=== PATIENT | female | born 2000 | race African-American/Black ===

== ENCOUNTER 2021-02-11 15:26 | Emergency (ER) | payer OTHER, MEDICAID, SELFPAY ==
[2021-02-11 15:37] VITALS: BP 132/72; PULSE 76; RESP 19; TEMP 37; O2SAT 100
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
[2021-02-11] MEDS: LIDOCAINE, EPINEPHRINE, TETRACAINE VISCOUS SOLN 3 ML TOPICAL (15:56)
[2021-02-11] MEDS: TETANUS,DIPHTHERIA,AC PERTUSSIS ADULT (0.5 ML) BOOSTRIX IM (15:56)
== END 2021-02-11 16:20 | disposition home or self-care (01) ==
PROVIDERS: Emergency Provider Emergency Medicine; PCP Physician Assistant
DX: S61.011A Laceration without foreign body of right thumb without damage to nail, initial encounter (principal); W45.8XXA Other foreign body or object entering through skin, initial encounter; Z23 Encounter for immunization
CPT/HCPCS: 12001; 90471; 90715; 99213; G0463

== ENCOUNTER 2021-02-18 13:12 | Emergency (ER) | payer OTHER, MEDICAID, SELFPAY ==
[2021-02-18 13:21] VITALS: BP 146/73; PULSE 75; RESP 18; TEMP 36.4; O2SAT 100
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
== END 2021-02-18 14:13 | disposition home or self-care (01) ==
PROVIDERS: Emergency Provider Registered Nurse; PCP Physician Assistant
DX: S61.011D Laceration without foreign body of right thumb without damage to nail, subsequent encounter (principal); W45.8XXD Other foreign body or object entering through skin, subsequent encounter; N80.9 Endometriosis, unspecified
CPT/HCPCS: 99211; G0463

== ENCOUNTER 2021-11-12 12:55 | Emergency (ER) | payer OTHER, MEDICAID, SELFPAY ==
[2021-11-12 13:02] VITALS: BP 158/97; PULSE 78; RESP 14; TEMP 36.8; O2SAT 100
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
== END 2021-11-12 13:43 | disposition home or self-care (01) ==
PROVIDERS: Emergency Provider Nurse Practitioner Family; PCP Physician Assistant
DX: N93.9 Abnormal uterine and vaginal bleeding, unspecified (principal); N80.9 Endometriosis, unspecified; F41.9 Anxiety disorder, unspecified
CPT/HCPCS: 81025; 99212; G0463

== ENCOUNTER 2022-02-07 09:21 | Inpatient (IN) | payer OTHER, MEDICAID, SELFPAY ==
[2022-02-07] VITALS (33 sets, daily range): BP systolic 106–170; BP diastolic 59–105; PULSE 77–117; RESP 11–31; TEMP 36.4–36.6; O2SAT 97–100
--- NOTE | ~2022-02-07 | CT_ITS ---
EXAMINATION: CT abdomen pelvis w con DATE: 02/07/2022 10:46 INDICATION: Upper abdominal pain. Nausea and vomiting. TECHNIQUE: Computed tomography (CT) of the abdomen and pelvis was performed with 100 mL Omnipaque 300 intravenous contrast. Automated exposure control and iterative reconstruction technique were employe d. The dose-length product was 801.26 mGy-cm. COMPARISON: None. FINDINGS: The visualized portions of the lung bases are clear without pneumonia or pleural effusion. The heart size is normal. No pericardial effusion. There is a small sliding hiatal hernia. There is w all thickening of distal esophagus. There is an 11 mm mass of low-attenuation in peripheral right hep atic lobe. The gallbladder, spleen, pancreas, adrenal glands, and left kidney are normal. There is fo travis volume loss of right kidney. There are surgical changes of the stomach. There are changes of appe ndectomy. There are no dilated loops of bowel. There is subcutaneous shrapnel in right buttock. IMPRESSION: 1. Small sliding hiatal hernia. 2. Wall thickening of the distal esophagus, consistent with esophagitis. 3. 11 mm peripheral liver mass, most likely steatosis or old injury. Reviewed, dictated and finalized at location B.
[2022-02-07 09:39] LABS: Basophils Absolute Auto 0.1 K/mm3 (0.0-0.1); Basophils Percent Auto 0.7 % (0.2-1.2); Eosinophils Percent Auto 0.1 % (0-4.4); Hematocrit 37.8 % (37.0-47.0); Hemoglobin 12.7 g/dL (12.0-15.0); Immature Granulocyte Absolute 0.07 K/mm3 (0.00-0.031); Immature Granulocyte Percent A 0.5 % (0-0.5); Lymphocytes Absolute Auto 2.37 K/mm3 (0.9-3.2); Lymphocytes Percent Auto 17.5 % (18.3-44.2); Mean Corpuscular HGB Conc 33.6 g/dl (32-36); Mean Corpuscular Hemoglobin 32.5 pg (26-34); Mean Corpuscular Volume 96.7 fl (80-100); Mean Platelet Volume 10.2 fl (7.4-10.4); Monocytes Absolute Auto 0.9 K/mm3 (0.1-0.6); Monocytes Percent Auto 6.7 % (2.6-8.5); Neutrophils Absolute Auto 10.1 K/mm3 (1.3-6.7); Neutrophils Percent Auto 74.5 % (45.5-73.1); Platelet Count Result 345 k/mm3 (150-375); Red Blood Count 3.91 M/mm3 (4.2-5.4); Red Cell Distribution Width 12.5 % (11.5-14.5); White Blood Count 13.6 K/mm3 (4.5-10.0)
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
--- NOTE | 2022-02-07 09:42 | PC.NURSE ---
Dr. Wlal at bedside to assess pt.
[2022-02-07] MEDS: SODIUM CHLORIDE 0.9% IV 1,000 ML 999 ML IV CONT ×2 (09:50→11:37)
[2022-02-07] MEDS: FAMOTIDINE 20 MG/2 ML VIAL IV PUSH ×2 (09:51→20:48)
[2022-02-07 09:55] LABS: Alanine Aminotransferase 15 U/L (6-35); Albumin Level 4.7 g/dL (3.5-5.1); Alkaline Phosphatase 78 U/L (38-126); Anion Gap 13 mmol/L (8-16); Aspartate Amino Transferase 28 U/L (14-36); Bilirubin,Total 0.4 mg/dL (0.2-1.3); Blood Urea Nitrogen 12 mg/dL (7-17); Calcium 9.3 mg/dL (8.4-10.2); Carbon Dioxide 16 mmol/L (22-30); Chloride 108 mmol/L (98-107); Estimated CRCL calculation 123 ml/min; Estimated Glomerular Filt Rate > 60; Glucose 128 mg/dL (65-110); Lipase 53 U/L (23-300); Potassium 3.4 mmol/L (3.4-5.0); Sodium 137 mmol/L (137-145)
[2022-02-07 10:36] LABS: Add Urine Microscopic? YES; Appearance Urine Cloudy (Clear); Bilirubin Urine Negative (Negative); Blood Urine 2+ (Negative); Color Urine Yellow (Yellow); Glucose Urine UA Negative (Negative); Ketones Urine 1+ mg/dL (Negative); Leukocyte Esterase Ur Negative LEU/UL (Negative); Nitrate Urine Positive (Negative); Protein Urine 2+ mg/dL (Negative); Specific Grav Ur >= 1.030 (1.001-1.035); Urobilinogen Urine 0.2 mg/dL (<2.0)
[2022-02-07] MEDS: PROMETHAZINE HCL 25 MG/ML AMPUL 12.5 MG IV PUSH (11:36)
[2022-02-07] MEDS: MORPHINE SULFATE (*CRX) 4 MG/ML INJ IV PUSH (13:33)
--- NOTE | 2022-02-07 14:19 | PC.NURSE ---
Patient appears to be resting much more comfortably at this time. Reports pain is down to 1/10 from 9/10. No nausea or vomiting at this time. Call light in reach. Awaiting dispo.
--- NOTE | 2022-02-07 15:50 | PC.NURSE ---
Patient unable to tolerate PO challenge. Reports that she vomited after drinking the glass of water provided. Dr. Wall made aware.
[2022-02-07] MEDS: LORazepam INJ (*CRX) 2 MG/ML VIAL 0.5 MG IV PUSH (16:11)
[2022-02-07 16:39] LABS: Amphetamine Screen Urine Negative (Negative); Barbiturate Screen Urine Negative (Negative); Benzodiazepines Screen Urine Negative (Negative); Cannabinoid Screen Urine Positive (Negative); Cocaine Screen Urine Negative (Negative); Methadone Screen Urine Negative (Negative); Opiate Screen Urine Negative (Negative); Phencyclidine Screen Urine Negative (Negative)
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
[2022-02-07] MEDS: SODIUM CHLORIDE 0.9% IV 1,000 ML 125 ML IV CONT (18:12)
[2022-02-07] MEDS: MORPHINE SULFATE (*CRX) 2 MG/ML INJ IV PUSH (20:47)
[2022-02-07 23:36] LABS: Anion Gap 7 mmol/L (8-16); Blood Urea Nitrogen 9 mg/dL (7-17); Calcium 8.4 mg/dL (8.4-10.2); Carbon Dioxide 18 mmol/L (22-30); Chloride 111 mmol/L (98-107); Estimated CRCL calculation 145 ml/min; Estimated Glomerular Filt Rate > 60; Glucose 86 mg/dL (65-110); Magnesium 1.3 mg/dL (1.6-2.3); Sodium 136 mmol/L (137-145)
[2022-02-08] MEDS: MORPHINE SULFATE (*CRX) 2 MG/ML INJ IV PUSH ×5 (00:53→20:24)
[2022-02-08] MEDS: PANTOPRAZOLE SODIUM IV 40 MG VIAL IV PUSH ×3 (00:54→20:29)
[2022-02-08] MEDS: ONDANSETRON INJ 4 MG/2 ML VIAL IV PUSH ×5 (00:54→20:24)
[2022-02-08] MEDS: MAGNESIUM SULFATE 3GM/D5W100ML 3 GM/100 ML BAG IVPB (00:54)
[2022-02-08] MEDS: LACTATED RINGERS 1,000 ML 100 ML IV CONT ×2 (04:02→18:35)
[2022-02-08 05:54] VITALS: BP 125/77; PULSE 78; RESP 18; TEMP 36.2; O2SAT 100
[2022-02-08 06:03] LABS: Basophils Absolute Auto 0.1 K/mm3 (0.0-0.1); Basophils Percent Auto 0.4 % (0.2-1.2); Eosinophils Absolute Auto 0.1 K/mm3 (0-0.3); Eosinophils Percent Auto 0.7 % (0-4.4); Hematocrit 35.6 % (37.0-47.0); Hemoglobin 11.5 g/dL (12.0-15.0); Immature Granulocyte Absolute 0.06 K/mm3 (0.00-0.031); Immature Granulocyte Percent A 0.5 % (0-0.5); Lymphocytes Absolute Auto 3.38 K/mm3 (0.9-3.2); Lymphocytes Percent Auto 30.3 % (18.3-44.2); Mean Corpuscular HGB Conc 32.3 g/dl (32-36); Mean Corpuscular Hemoglobin 33.7 pg (26-34); Mean Corpuscular Volume 104.4 fl (80-100); Mean Platelet Volume 10.3 fl (7.4-10.4); Neutrophils Absolute Auto 6.6 K/mm3 (1.3-6.7); Neutrophils Percent Auto 59.1 % (45.5-73.1); Platelet Count Result 257 k/mm3 (150-375); Red Blood Count 3.41 M/mm3 (4.2-5.4); Red Cell Distribution Width 12.9 % (11.5-14.5); White Blood Count 11.2 K/mm3 (4.5-10.0)
[2022-02-08 06:19] LABS: Alanine Aminotransferase 9 U/L (6-35); Albumin Level 3.6 g/dL (3.5-5.1); Alkaline Phosphatase 54 U/L (38-126); Anion Gap 4 mmol/L (8-16); Aspartate Amino Transferase 22 U/L (14-36); Bilirubin,Total 0.7 mg/dL (0.2-1.3); Blood Urea Nitrogen 6 mg/dL (7-17); Calcium 7.4 mg/dL (8.4-10.2); Carbon Dioxide 21 mmol/L (22-30); Chloride 111 mmol/L (98-107); Estimated CRCL calculation 123 ml/min; Estimated Glomerular Filt Rate > 60; Glucose 79 mg/dL (65-110); Potassium 3.1 mmol/L (3.4-5.0); Sodium 136 mmol/L (137-145)
[2022-02-08] MEDS: VENLAFAXINE HCL XR 75 MG CAP.ER.24H 150 MG PO (08:46)
[2022-02-08] MEDS: POTASSIUM CHLORIDE 20 MEQ TABLET 40 MEQ PO (10:29)
--- NOTE | 2022-02-08 10:57 | PM.IMPN ---
Progress Note: A&P Assessment and Plan (1) Esophagitis: Code(s): K20.90 - Esophagitis, unspecified without bleeding Status: Acute Assessment and Plan: The patient presents with complaints of epigastric abdominal pain, nausea, and vomiting. Her symptoms could be related to esophagitis, gastritis and/or PUD. Lipase normal. CT Abd/Pelvis results noted. Consider also cannabinoid hyperemesis syndrome. She was educated about the benefits of abstaining from cannabis use. She does report a small amount of blood in her emesis in addition to dark stools but could be Pricila-Estrada tear. She is feeling better. Continue IV fluids. Keep NPO until seen by GI. If no plan for EGD, then will start clear liquids. Continue Protonix IV as well have antiemetics available as needed. (2) Nausea and vomiting: Code(s): R11.2 - Nausea with vomiting, unspecified Status: Acute Assessment and Plan: As above. (3) Cannabis abuse, daily use: Code(s): F12.10 - Cannabis abuse, uncomplicated Status: Acute Assessment and Plan: As above. Patient was educated about benefits abstain from cannabis use. (4) Abnormal urinalysis: Code(s): R82.90 - Unspecified abnormal findings in urine Status: Acute Assessment and Plan: UA noted. Possible UTI. Rocephin started. Will follow up on urine culture. (5) Tobacco abuse: Code(s): Z72.0 - Tobacco use Status: Acute Assessment and Plan: Patient was educated about the benefits of smoking cessation. (6) Anxiety and depression: Code(s): F41.9 - Anxiety disorder, unspecified; F32.9 - Major depressive disorder, single episode, unspecified Status: Acute Assessment and Plan: Patient with anxiety, depression and PTSD. Mood is stable. Will resume her Seroquel and Effexor. Plan DVT Prophylaxis: SCD Code status: Full Subjective Date/time seen: 02/08/22 10:57 Interval history: 21yo female with PTSD, anxiety and depression here for nausea/vomiting and abdominal pain. Assuming care. Chart reviewed. Patient states that she had nausea, vomiting abdominal pain that resulted in dark red emesis. No further vomiting. She feels better overall but still feels nauseous. She has mostly is upper abdominal pain that that is rated 8/10. She describes as a pressure. Worse with movements. Denies flatus or bowel movements. She states her symptoms began in August and have been intermittent since that time. Exam Narrative: AF 97.2 125/77 78 18 100% ra Gen - NARD lying flat in bed Chest - CTA bilaterally, nml RR CV - RRR S1/S2 Abd - mild upper abdominal pain to palpation but no guarding, hypoactive BS Ext - No pedal edema Psych - Nml mood and affect Skin - Warm and dry Objective Data Vital Signs Vital Signs: Vital Signs - 24 hr 02/07/22 12:08 02/07/22 12:17 02/07/22 12:19 Temperature 97.5 F L Pulse Rate 107 H 110 H Respiratory Rate Blood Pressure 148/93 H 170/105 H Pulse Oximetry Oxygen Delivery 02/07/22 12:14 02/07/22 12:15 02/07/22 12:19 Temperature Pulse Rate 82 82 117 H Respiratory Rate 16 25 H 19 Blood Pressure 148/93 H Pulse Oximetry 100 Oxygen Delivery 02/07/22 12:24 02/07/22 13:53 02/07/22 14:07 Temperature Pulse Rate 90 80 87 Respiratory Rate 19 22 H 21 H Blood Pressure Pulse Oximetry 100 99 99 Oxygen Delivery 02/07/22 14:15 02/07/22 14:17 02/07/22 14:30 Temperature Pulse Rate 83 94 81 Respiratory Rate 22 H 27 H 20 Blood Pressure 113/59 L Pulse Oximetry 100 99 100 Oxygen Delivery 02/07/22 14:31 02/07/22 14:32 02/07/22 14:45 Temperature Pulse Rate 78 86 91 Respiratory Rate 23 H 23 H 31 H Blood Pressure 111/96 H Pulse Oximetry 100 100 100 Oxygen Delivery 02/07/22 15:00 02/07/22 15:01 02/07/22 15:02 Temperature Pulse Rate 87 83 85 Respiratory Rate 31 H 22 H 23 H Blood Pressure
[2022-02-08 14:00] VITALS: BP 148/91; PULSE 67; RESP 18; TEMP 36.2; O2SAT 100
[2022-02-08] MEDS: QUEtiapine FUMARATE 25 MG TABLET PO (21:21)
[2022-02-08 21:38] VITALS: BP 145/88; PULSE 79; RESP 18; TEMP 36.4; O2SAT 100
[2022-02-09] MEDS: ONDANSETRON INJ 4 MG/2 ML VIAL IV PUSH ×3 (00:43→10:12)
[2022-02-09] MEDS: MORPHINE SULFATE (*CRX) 2 MG/ML INJ IV PUSH ×3 (00:43→10:12)
[2022-02-09] MEDS: LACTATED RINGERS 1,000 ML 100 ML IV CONT (05:01)
[2022-02-09 06:00] VITALS: BP 128/90; PULSE 73; RESP 18; TEMP 36.4; O2SAT 100
[2022-02-09 06:15] LABS: Basophils Absolute Auto 0.1 K/mm3 (0.0-0.1); Basophils Percent Auto 0.9 % (0.2-1.2); Eosinophils Absolute Auto 0.1 K/mm3 (0-0.3); Eosinophils Percent Auto 1.3 % (0-4.4); Hematocrit 36.9 % (37.0-47.0); Immature Granulocyte Absolute 0.02 K/mm3 (0.00-0.031); Immature Granulocyte Percent A 0.3 % (0-0.5); Immature Platelet Fraction Pct 5.1 % (0.9-11.2); Lymphocytes Absolute Auto 3.21 K/mm3 (0.9-3.2); Lymphocytes Percent Auto 40.4 % (18.3-44.2); Mean Corpuscular HGB Conc 29.8 g/dl (32-36); Mean Corpuscular Hemoglobin 32.5 pg (26-34); Mean Corpuscular Volume 109.2 fl (80-100); Mean Platelet Volume 10.5 fl (7.4-10.4); Monocytes Absolute Auto 0.7 K/mm3 (0.1-0.6); Monocytes Percent Auto 8.2 % (2.6-8.5); Neutrophils Absolute Auto 3.9 K/mm3 (1.3-6.7); Neutrophils Percent Auto 48.9 % (45.5-73.1); Platelet Count Result 242 k/mm3 (150-375); Red Blood Count 3.38 M/mm3 (4.2-5.4); Red Cell Distribution Width 12.3 % (11.5-14.5)
[2022-02-09 06:31] LABS: Anion Gap 4 mmol/L (8-16); Blood Urea Nitrogen 4 mg/dL (7-17); Calcium 7.7 mg/dL (8.4-10.2); Carbon Dioxide 24 mmol/L (22-30); Chloride 109 mmol/L (98-107); Estimated CRCL calculation 107 ml/min; Estimated Glomerular Filt Rate > 60; Glucose 87 mg/dL (65-110); Magnesium 2.1 mg/dL (1.6-2.3); Potassium 3.4 mmol/L (3.4-5.0); Sodium 137 mmol/L (137-145)
[2022-02-09] MEDS: PANTOPRAZOLE SODIUM IV 40 MG VIAL IV PUSH (08:14)
[2022-02-09] MEDS: VENLAFAXINE HCL XR 75 MG CAP.ER.24H 150 MG PO (08:14)
--- NOTE | 2022-02-09 08:29 | PC.NURSE ---
All 0800 and 0900 meds given by Hanh Gutierrez RN.
[2022-02-09 14:00] VITALS: BP 172/99; PULSE 75; RESP 16; TEMP 36.6; O2SAT 99
[2022-02-09] MEDS: traMADol HCL (*CRX) 25 MG TABLET PO (15:29)
--- NOTE | 2022-02-09 17:07 | PM.DS ---
DS: Admitting Diagnosis Discharge Date 02/09/22 Admitting Diagnosis Nausea, vomiting, abdominal pain DS: Discharge Diagnosis Discharge Diagnosis (1) Esophagitis: Code(s): K20.90 - Esophagitis, unspecified without bleeding Status: Acute (2) Nausea and vomiting: Code(s): R11.2 - Nausea with vomiting, unspecified Status: Acute (3) Cannabis abuse, daily use: Code(s): F12.10 - Cannabis abuse, uncomplicated Status: Acute (4) Abnormal urinalysis: Code(s): R82.90 - Unspecified abnormal findings in urine Status: Acute (5) Tobacco abuse: Code(s): Z72.0 - Tobacco use Status: Acute (6) Anxiety and depression: Code(s): F41.9 - Anxiety disorder, unspecified; F32.9 - Major depressive disorder, single episode, unspecified Status: Acute DS: Summary Hospital Course Reason for hospitalization: 21yo female with PTSD, anxiety and depression here for nausea/vomiting and abdominal pain. Please see H&P for details Hospital Course: The patient presented with complaints of epigastric abdominal pain, nausea, and vomiting. CT Abd/Pelvis results showed a small sliding hiatal hernia, wall thickening of the distal esophagus consistent with esophagitis and a 11 mm peripheral liver mass, most likely steatosis or old injury. Her symptoms could be related to esophagitis, gastritis and/or PUD. Lipase was normal. Consider also cannabinoid hyperemesis syndrome. She was educated about the benefits of abstaining from cannabis use. She does report a small amount of blood in her emesis in addition to dark stools but could be Pricila-Estrada tear. Hemoglobin remained stable. Macrocytosis noted probably related to her Seroquel ; B12/folate levels pending. She was made NPO and started on IV fluids. GI consulted but unable to see her here. She began to feel better so diet started and advanced as she tolerated. UA noted and UTI considered but UCx was negative. She was started on Rocephin but stopped when urine culture returned negative. Patient was educated about the benefits of smoking cessation. Patient with anxiety, depression and PTSD. Mood remained stable and we were able to resume her Seroquel and Effexor. She was able to eat and toelrate it. She felt ready for discharge. She overall did well and was able to be discharged home on 02/09/22. Status at Discharge Cognitive/behavioral status at discharge: Stable Time Spent with Patient Time attestation: Total time spent providing and/or coordinating discharge services: 34 minutes Time spent: Greater than 30 minutes Exam Narrative: AF 97.8 172/99 75 16 99% ra Gen - NARD Chest - CTA bilaterally, nml RR CV - RRR S1/S2 Abd - soft, obese, NT, +BS Ext - No pedal edema Psych - Nml mood and affect Skin - Warm and dry DS: Data Data Completed and Pending Labs on day of discharge: Labs from last 24 hours 02/09/22 02/09/22 05:47 05:47 WBC 8.0 RBC 3.38 L Hgb 11.0 L Hct 36.9 L MCV 109.2 H MCH 32.5 MCHC 29.8 L RDW 12.3 Plt Count 242 MPV 10.5 H Immature Gran % (Auto) 0.3 Neut % (Auto) 48.9 Lymph % (Auto) 40.4 [place] % (Auto) 8.2 Eos % (Auto) 1.3 Baso % (Auto) 0.9 Lymph # (Auto) 3.21 H [place] # (Auto) 0.7 H Eos # (Auto) 0.1 Baso # (Auto) 0.1 Abs Immat Gran (auto) 0.02 Absolute Neuts (auto) 3.9 Absolute Nucleated RBC 0.0 Nucleated RBC % 0.0 % Immature Plt Fraction 5.1 Sodium 137 Potassium 3.4 Chloride 109 H Carbon Dioxide 24 Anion Gap 4 L BUN 4 L Creatinine 0.70 Estim Creat Clear Calc 107 Estimated GFR > 60 Glucose 87 Calcium 7.7 L Magnesium 2.1 Discharge Plan Discharge Attending physician on discharge: Roland Mortensen Discharging Clinician: Roland Mortensen Anticipated Discharge Date/Time: 02/09/22 17:21 Patient Disposition: Home, Self-Care Activity: as tolerated Diet: regular and bland Discharge Instruc
[2022-02-09 18:41] LABS: Folic Acid 8.5 ng/mL (2.76->20)
--- NOTE | 2022-02-10 09:39 | PC.NURSE ---
B12 and Folate are both WNL. Dr. Mortensen aware.
== END 2022-02-09 18:10 | disposition home or self-care (01) | DRG 391 ==
LOC: ANHED 15:51 → ANH3MEDSUR 16:24
PROVIDERS: Physician Assistant; Admitting Provider Chiropractor; Emergency Provider Emergency Medicine; PCP Physician Assistant; Visit Provider Internal Medicine
DX: K20.90 Esophagitis, unspecified without bleeding (principal); K22.6 Gastro-esophageal laceration-hemorrhage syndrome; K27.9 Peptic ulcer, site unspecified, unspecified as acute or chronic, without hemorrhage or perforation; K29.70 Gastritis, unspecified, without bleeding; D75.89 Other specified diseases of blood and blood-forming organs; T43.595A Adverse effect of other antipsychotics and neuroleptics, initial encounter; R11.2 Nausea with vomiting, unspecified; F12.10 Cannabis abuse, uncomplicated; F43.10 Post-traumatic stress disorder, unspecified; R82.90 Unspecified abnormal findings in urine; F41.8 Other specified anxiety disorders; F17.210 Nicotine dependence, cigarettes, uncomplicated; Z90.49 Acquired absence of other specified parts of digestive tract
CPT/HCPCS: 36415; 74177; 80048; 80053; 80307; 81001; 81025; 82607; 82746; 83690; 83735; 85025; 85055; 87086; 96361; 96365; 96367; 96374; 96375; 96376; 99285; A9270; C9113; G0378; J0131; J0696; J2060; J2270; J2405; J2550; J3475; J7030; J7120; Q9967

== ENCOUNTER 2022-11-01 10:52 | Emergency (ER) | payer OTHER, MEDICAID, SELFPAY ==
--- NOTE | ~2022-11-01 | CT_ITS ---
EXAMINATION: CT abdomen pelvis w con DATE: 11/01/2022 12:18 INDICATION: Abdominal pain, nausea and vomiting TECHNIQUE: Computed tomography (CT) of the abdomen and pelvis was performed with 100 mL Omnipaque-350 intravenous contrast. Automated exposure control and iterative reconstruction technique were employe d. The dose-length product was 734.07 mGy-cm. COMPARISON: 02/07/2022 FINDINGS: Lung bases are clear. Heart size is normal. No pericardial or pleural effusion. No interval change in and likely benign subtle poorly defined approximately 10 mm subcapsular hypodense lesion in segment 5 of the liver. Gallbladder, spleen, pancreas, bilateral adrenal glands and left kidney are normal. P ostoperative change of prior partial nephrectomy at the lower pole of the right kidney. There is diff use wall thickening of the colon most prominent in the ascending and transverse colon consistent with colitis. No bowel obstruction. Appendix is not visualized and there are couple surgical clips at the tip the cecum consistent with prior appendicitis. Bladder, anteverted uterus and bilateral adnexa ar e unremarkable. Minimal amount of likely physiologic free fluid in the cul-de-sac. No abscess or free intraperitoneal gas. No pathologically enlarged abdominal or pelvic lymphadenopathy. Metallic foreig n body in the subcutaneous tissues fat lateral to the right greater trochanter. Mild degenerative ske letal changes in the spine and pelvis. IMPRESSION: 1. Wall thickening in the ascending and transverse colon consistent with colitis which could be infec tious, inflammatory or ischemic in etiology. Reviewed, dictated and finalized at location A. PROCESSING CENTER MANAGER IMPRESSION: 1. Wall thickening in the ascending and transverse colon consistent with coliti s which could be infectious, inflammatory or ischemic in etiology.
[2022-11-01 10:50] VITALS: BP 178/83; PULSE 98; RESP 20; TEMP 36.9; O2SAT 100
[2022-11-01 11:01] VITALS: BP 153/80; PULSE 100; RESP 18; O2SAT 100
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
[2022-11-01] MEDS: ONDANSETRON INJ 4 MG/2 ML VIAL IV PUSH (11:29)
[2022-11-01] MEDS: SODIUM CHLORIDE 0.9% IV 2,000 ML 999 ML IV CONT (11:29)
[2022-11-01 11:33] LABS: Basophils Absolute Auto 0.1 K/mm3 (0.0-0.1); Basophils Percent Auto 0.5 % (0.2-1.2); Eosinophils Percent Auto 0.2 % (0-4.4); Hematocrit 37.5 % (37.0-47.0); Hemoglobin 12.5 g/dL (12.0-15.0); Immature Granulocyte Absolute 0.03 K/mm3 (0.00-0.031); Immature Granulocyte Percent A 0.2 % (0-0.5); Lymphocytes Absolute Auto 2.38 K/mm3 (0.9-3.2); Mean Corpuscular HGB Conc 33.3 g/dl (32-36); Mean Corpuscular Hemoglobin 32.5 pg (26-34); Mean Corpuscular Volume 97.4 fl (80-100); Monocytes Absolute Auto 0.9 K/mm3 (0.1-0.6); Monocytes Percent Auto 6.4 % (2.6-8.5); Neutrophils Absolute Auto 10.6 K/mm3 (1.3-6.7); Neutrophils Percent Auto 75.7 % (45.5-73.1); Platelet Count Result 339 k/mm3 (150-375); Red Blood Count 3.85 M/mm3 (4.2-5.4); Red Cell Distribution Width 12.9 % (11.5-14.5)
[2022-11-01 11:38] LABS: Appearance Urine Cloudy (Clear); Bacteria Urine Rare /hpf; Bilirubin Urine Negative (Negative); Blood Urine Negative (Negative); Color Urine Dark Yellow (Yellow); Glucose Urine UA Negative (Negative); Ketones Urine 2+ mg/dL (Negative); Leukocyte Esterase Ur Trace LEU/UL (Negative); Nitrate Urine Negative (Negative); Protein Urine 1+ mg/dL (Negative); RBC Urine 0-2 /hpf (0-2); Squamous Epithelial Cell Urine Moderate /hpf (Few); pH Urine 8.5 (5.0-9.0)
[2022-11-01 11:43] LABS: Alanine Aminotransferase 15 U/L (6-35); Albumin Level 4.8 g/dL (3.5-5.1); Alkaline Phosphatase 85 U/L (38-126); Anion Gap 7 mmol/L (8-16); Aspartate Amino Transferase 26 U/L (14-36); Bilirubin,Total 0.6 mg/dL (0.2-1.3); Blood Urea Nitrogen 12 mg/dL (7-17); Calcium 9.2 mg/dL (8.4-10.2); Carbon Dioxide 26 mmol/L (22-30); Chloride 106 mmol/L (98-107); Estimated CRCL calculation 125 ml/min; Estimated Glomerular Filt Rate > 60; Glucose 104 mg/dL (65-110); Lipase 57 U/L (23-300); Potassium 3.8 mmol/L (3.4-5.0); Sodium 139 mmol/L (137-145)
[2022-11-01] MEDS: HALOPERIDOL LACTATE 5 MG/ML VIAL 2.5 MG IV PUSH (11:57)
[2022-11-01 11:58] VITALS: BP 128/79; PULSE 103; RESP 20; O2SAT 100
[2022-11-01 11:58] LABS: Add Urine Microscopic? YES
[2022-11-01 12:18] VITALS: BP 91/81; PULSE 110; RESP 16
[2022-11-01 12:33] VITALS: BP 118/62; PULSE 101; RESP 18; O2SAT 100
[2022-11-01] MEDS: diphenhydrAMINE HCl INJ 50 MG/ML VIAL 25 MG IV PUSH (12:53)
[2022-11-01] MEDS: LORazepam (*CRX) 0.5 MG TABLET PO (12:54)
--- NOTE | 2022-11-01 13:21 | ECG_ITS ---
Measurements Intervals [place] Rate: 99 P: 57 KS: 140 QRS: 43 QRSD: 95 T: 37 QT: 328 QTc: 423 Interpretive Statements SINUS RHYTHM BORDERLINE T WAVE ABNORMALITY- ANTERIOR LEADS BORDERLINE ECG NO PREVIOUS ECG AVAILABLE FOR COMPARISON Electronically Signed On 11-01-2022 17:08:48 DEALER ACCOUNTS INVESTIGATOR by Ramin Charles D.O.
[2022-11-01 13:42] VITALS: BP 125/74; PULSE 98; RESP 20; O2SAT 100
== END 2022-11-01 13:46 | disposition home or self-care (01) ==
PROVIDERS: Emergency Provider Nurse Practitioner Family; PCP Physician Assistant
DX: K52.9 Noninfective gastroenteritis and colitis, unspecified (principal); R11.2 Nausea with vomiting, unspecified; F41.9 Anxiety disorder, unspecified; F17.210 Nicotine dependence, cigarettes, uncomplicated; F32.A Depression, unspecified
CPT/HCPCS: 36415; 74177; 80053; 81001; 81025; 83690; 85025; 87086; 87088; 93005; 96361; 96374; 96375; 99284; A9270; J1200; J1630; J2405; J7030; Q9967

== ENCOUNTER 2023-07-21 08:08 | Outpatient (CLI) | payer OTHER, MEDICAID, SELFPAY ==
--- NOTE | ~2023-07-21 | NM_ITS ---
EXAM: NM gastric emptying study DATE: 07/21/2023 12:48 INDICATION: Nausea with vomiting, unspecified. TECHNIQUE: A gastric emptying study was performed using the methodology of Mila FENTON, et al. J Nucl Med 2007; 48:568-572. The patient was given a meal consisting of 2 scrambled eggs labeled with 0.944 mCi Tc-99m sulfur colloid, 2 slices of toast, two packages of jam, and approximately 120 mL of water . Simultaneous anterior and posterior 1-min images of the abdomen were obtained with the patient supi ne at multiple time points over a total period of 4 hours. The geometric mean of anterior and posteri or views was determined, and the percentage retention was calculated for each time point. COMPARISON: CT abdomen and pelvis 11/01/2022 FINDINGS: Gastric retention of the radiotracer-labeled meal was 57%, 27%, and 3% at the 1-hour, 2-ho ur, and 4-hour time points, respectively. With this technique, apparent rapid gastric emptying is sug gested by <30% gastric retention at 1 hour. Delayed gastric emptying is defined by gastric retention of >90% at 1 hour, >60% retention at 2 hours, or >10% retention at 4 hours. IMPRESSION: 1. Normal gastric emptying. Reviewed, dictated and finalized at location A. UITMENT ASSISTANT IMPRESSION: 1. Normal gastric emptying.
== END 2023-07-21 08:09 | disposition home or self-care (01) ==
PROVIDERS: PCP Family Medicine; Visit Provider Nurse Practitioner Family
DX: R11.2 Nausea with vomiting, unspecified (principal)
CPT/HCPCS: 78264; A9541

== ENCOUNTER 2024-01-27 12:56 | Outpatient (CLI) | payer OTHER, SELFPAY ==
--- NOTE | ~2024-01-27 | US_ITS ---
EXAMINATION: US OB <=14 wk fetus w TV DATE: 01/27/2024 13:21 INDICATION: Uncertain dates. . TECHNIQUE: Real-time transabdominal and transvaginal pelvic ultrasound was performed. COMPARISON: None. FINDINGS: TRANSABDOMINAL ULTRASOUND: The uterus measures 8.8 x 6.0 x 5.4 cm. TRANSVAGINAL ULTRASOUND: There is an intrauterine gestational sac. A yolk sac is identified. The fet al crown rump length measures 9 mm, which correlates with an estimated gestational age of 7 weeks and 0 day(s) (+/-) 4 day(s). heart motion is identified measuring 128 beats per minute (bpm) by M- mode Doppler. There is a small subchorionic hematoma. The right ovary measures 1.7 x 2.5 x 2.1 cm. Th e left ovary measures 3.2 x 1.5 x 1.5 cm. There is no free fluid in the pelvis. IMPRESSION: 1. Single living intrauterine gestation with estimated date of delivery of 09/14/2024. 2. Small subchorionic hematoma. Reviewed, dictated and finalized at location A. IMPRESSION: 1. Single living intrauterine gestation with estimated date of delivery of 08/25. 2. Small subchorionic hematoma.
== END 2024-01-27 12:57 ==
LOC: GOSHIMG 12:57
PROVIDERS: PCP Family Medicine; Visit Provider Obstetrics & Gynecology Gynecology
DX: O46.90 Antepartum hemorrhage, unspecified, unspecified trimester (principal); Z36.87 Encounter for antenatal screening for uncertain dates; Z3A.00 Weeks of gestation of pregnancy not specified
CPT/HCPCS: 76801; 76817

== ENCOUNTER 2024-01-31 19:45 | Observation (INO) | payer OTHER, MEDICAID, SELFPAY ==
[2024-01-31 19:39] VITALS: BP 81/71; PULSE 80; RESP 18; TEMP 36.8; O2SAT 100
[2024-01-31] MEDS: SODIUM CHLORIDE 0.9% IV 1,000 ML 999 ML IV CONT ×3 (20:31→23:04)
[2024-01-31 20:34] LABS: Basophils Absolute Auto 0.1 K/mm3 (0.0-0.1); Basophils Percent Auto 0.4 % (0.2-1.2); Eosinophils Percent Auto 0.2 % (0-4.4); Hematocrit 37.2 % (37.0-47.0); Hemoglobin 13.1 g/dL (12.0-15.0); Immature Granulocyte Absolute 0.06 K/mm3 (0.00-0.031); Immature Granulocyte Percent A 0.4 % (0-0.5); Lymphocytes Absolute Auto 1.65 K/mm3 (0.9-3.2); Lymphocytes Percent Auto 10.7 % (18.3-44.2); Mean Corpuscular HGB Conc 35.2 g/dl (32-36); Mean Corpuscular Hemoglobin 31.9 pg (26-34); Mean Corpuscular Volume 90.5 fl (80-100); Mean Platelet Volume 10.2 fl (7.4-10.4); Monocytes Absolute Auto 1.1 K/mm3 (0.1-0.6); Monocytes Percent Auto 7.4 % (2.6-8.5); Neutrophils Absolute Auto 12.4 K/mm3 (1.3-6.7); Neutrophils Percent Auto 80.9 % (45.5-73.1); Platelet Count Result 345 k/mm3 (150-375); Red Blood Count 4.11 M/mm3 (4.2-5.4); Red Cell Distribution Width 11.5 % (11.5-14.5); White Blood Count 15.4 K/mm3 (4.5-10.0)
[2024-01-31 20:38] LABS: Appearance Urine Cloudy (Clear); Bacteria Urine 2+ /hpf; Bilirubin Urine Negative (Negative); Blood Urine Negative (Negative); Color Urine Yellow (Yellow); Glucose Urine UA Negative (Negative); Ketones Urine 4+ mg/dL (Negative); Leukocyte Esterase Ur Negative LEU/UL (Negative); Nitrate Urine Negative (Negative); Non Pathogenic Casts 0-2; Protein Urine 1+ mg/dL (Negative); RBC Urine 0-2 /hpf (0-2); Squamous Epithelial Cell Urine Many /hpf (Few); pH Urine 5.5 (5.0-9.0)
[2024-01-31 20:44] LABS: Alanine Aminotransferase 9 U/L (6-35); Albumin Level 5.3 g/dL (3.5-5.1); Alkaline Phosphatase 61 U/L (38-126); Anion Gap 15 mmol/L (4-12); Aspartate Amino Transferase 20 U/L (14-36); Bilirubin,Total 0.7 mg/dL (0.2-1.3); Blood Urea Nitrogen 8 mg/dL (7-17); Calcium 10.1 mg/dL (8.4-10.2); Carbon Dioxide 17 mmol/L (22-30); Chloride 100 mmol/L (98-107); Estimated CRCL calculation 109 ml/min; Estimated Glomerular Filt Rate > 60; Glucose 83 mg/dL (65-110); Lipase 62 U/L (23-300); Potassium 3.6 mmol/L (3.4-5.0); Sodium 132 mmol/L (137-145)
[2024-01-31 20:48] LABS: Specific Grav Ur 1.031 (1.001-1.035)
[2024-01-31 20:49] LABS: Add Urine Microscopic? YES
[2024-01-31] MEDS: diphenhydrAMINE HCl INJ 50 MG/ML VIAL 25 MG IV PUSH (21:14)
[2024-01-31 21:15] VITALS: BP 111/64; PULSE 79; O2SAT 100
[2024-01-31] MEDS: FAMOTIDINE 20 MG/2 ML VIAL IV PUSH (21:15)
[2024-01-31] MEDS: METOCLOPRAMIDE HCL INJ 10 MG/2 ML VIAL IV PUSH (21:22)
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
[2024-01-31 21:35] LABS: Magnesium 1.9 mg/dL (1.6-2.3)
[2024-01-31] MEDS: ONDANSETRON INJ 4 MG/2 ML VIAL IV PUSH (23:04)
[2024-02-01] VITALS (35 sets, daily range): BP systolic 97–118; BP diastolic 44–65; PULSE 64–86; RESP 15–16; TEMP 36.1–36.6; O2SAT 89–100; BMI 25.6
[2024-02-01 00:17] LABS: Anion Gap 8 mmol/L (4-12); Blood Urea Nitrogen 6 mg/dL (7-17); Calcium 7.7 mg/dL (8.4-10.2); Carbon Dioxide 15 mmol/L (22-30); Chloride 110 mmol/L (98-107); Estimated CRCL calculation 128 ml/min; Estimated Glomerular Filt Rate > 60; Glucose 68 mg/dL (65-110); Potassium 3.7 mmol/L (3.4-5.0); Sodium 133 mmol/L (137-145)
[2024-02-01] MEDS: DEXTROSE 5%/0.9% SOD CHL 1,000 ML 100 ML IV CONT (00:50)
--- NOTE | 2024-02-01 01:30 | PC.NURSE ---
Pt arrives to unit from the Emergency Department with nausea and vomiting.
--- NOTE | 2024-02-01 02:18 | PC.NURSE ---
This Rn gave pt dextrose at 0050 prior to being admitted on OB floor. PT was taken up by a tech in wheelchair around 0130. This RN gave report to JALEN garcia at 0105.
--- NOTE | 2024-02-01 02:43 | PC.NURSE ---
Called Vasyl Caraballo CNM, update on pt, nausea, vomiting, and vital signs. Orders received to administer phenergan suppository 25 mg, reglan 5 mg, and vital signs every four hours, assess nausea and vomiting after ninety minutes, and if not feeling better administer D5 LR at 175 ml/hr, zofran 4 mg every eight hours, and phenergan every eight hours. When discharging pt, send prescriptions zofran every eight hours as needed, phenergan supposity 25 mg every eight hours , vitamin B6 50 mg daily, and unisom 12.5 mg at bedtime.
[2024-02-01] MEDS: DEXTROSE 5%/LACTATED RINGERS 1,000 ML 500 ML IV CONT (03:02)
--- NOTE | 2024-02-01 03:19 | PC.NURSE ---
Called Vasyl Caraballo CNM, verified medications, orders received to administer phenergan suppository 25 mg and cancel reglan.
--- NOTE | 2024-02-01 03:47 | OBADM ---
This patient, Josephine Alejandre, admitted to the OB room OB Post 116 for observation. Patient/family oriented to hospital policies and general routines including ID bracelet, bed and alarms, visiting hours, pain management, procedures, bathroom and other care routines, personal items, smoking policy, room service/diet, and visiting hours. Patient/Family are encouraged to report perceived risks to care and to ask questions if they do not understand what they are told or what they should do.
[2024-02-01] MEDS: DEXTROSE 5%/LACTATED RINGERS 1,000 ML 175 ML IV CONT ×4 (05:47→23:32)
[2024-02-01] MEDS: ONDANSETRON HCL ODT 4 MG TABLET PO ×3 (08:10→20:03)
[2024-02-01] MEDS: polyethylene glycoL 3350 17 GM POWD.PACK PO (08:10)
[2024-02-01] MEDS: FAMOTIDINE 20 MG/2 ML VIAL IV PUSH ×2 (09:11→21:09)
[2024-02-01 09:33] LABS: Appearance Urine Cloudy (Clear); Bacteria Urine Rare /hpf; Bilirubin Urine Negative (Negative); Blood Urine Negative (Negative); Color Urine Yellow (Yellow); Glucose Urine UA Negative (Negative); Ketones Urine 3+ mg/dL (Negative); Leukocyte Esterase Ur Negative LEU/UL (Negative); Nitrate Urine Negative (Negative); Non Pathogenic Casts 0-2; Protein Urine Negative (Negative); RBC Urine 0-2 /hpf (0-2); Specific Grav Ur 1.012 (1.001-1.035); Squamous Epithelial Cell Urine Moderate /hpf (Few); pH Urine 5.5 (5.0-9.0)
[2024-02-01 09:36] LABS: Add Urine Microscopic? YES
[2024-02-01] MEDS: PROMETHAZINE HCL 25 MG SUPP.RECT RECTAL ×2 (12:07→17:30)
--- NOTE | 2024-02-01 12:44 | PM.OBPNVD ---
OB - PN: Subj Subjective Date/time seen: 02/01/24 0725 Interval history: Pt rousable to voice. Reports continued nausea. Unable to attempt PO. IV fluids infusing. Denies improvement. Discussed plan of care. Plan to schedule antiemetics. Gradually transition to home dosing/ po routes. Denies vaginal bleeding. OB - PN: Obj Data Labs 01/31/24 20:27 01/31/24 23:48 Labs: Laboratory Results - last 24 hr 01/31/24 01/31/24 02/01/24 20:27 23:48 09:21 WBC 15.4 H RBC 4.11 L Hgb 13.1 Hct 37.2 MCV 90.5 MCH 31.9 MCHC 35.2 RDW 11.5 Plt Count 345 MPV 10.2 Immature Gran % (Auto) 0.4 Neut % (Auto) 80.9 H Lymph % (Auto) 10.7 L [place] % (Auto) 7.4 Eos % (Auto) 0.2 Baso % (Auto) 0.4 Lymph # (Auto) 1.65 [place] # (Auto) 1.1 H Eos # (Auto) 0.0 Baso # (Auto) 0.1 Abs Immat Gran (auto) 0.06 H Absolute Neuts (auto) 12.4 H Absolute Nucleated RBC 0.000 Nucleated RBC % 0.0 Sodium 132 L 133 L Potassium 3.6 3.7 Chloride 100 110 H Carbon Dioxide 17 L 15 L Anion Gap 15 H 8 BUN 8 6 L Creatinine 0.60 L 0.50 L Estim Creat Clear Calc 109 128 Estimated GFR > 60 > 60 Glucose 83 68 Calcium 10.1 7.7 L Magnesium 1.9 Total Bilirubin 0.7 AST 20 ALT 9 Alkaline Phosphatase 61 Total Protein 9.0 H Albumin 5.3 H Lipase 62 Beta HCG, Quant 79361.00 Urine Color Yellow Yellow Urine Appearance Cloudy H Cloudy H Urine pH 5.5 5.5 Ur Specific [place] 1.031 1.012 Urine Protein 1+ H Negative Urine Glucose (UA) Negative Negative Urine Ketones 4+ H 3+ H Ur Blood (Man) Negative Negative Urine Nitrate Negative Negative Urine Bilirubin Negative Negative Urine Urobilinogen 1.0 1.0 Ur Leukocyte Esterase Negative Leukocyte Esterase Rfl Negative Urine RBC 0-2 0-2 Urine WBC 6-10 H 6-10 H Ur Squamous Epith Cells Many H Moderate Urine Bacteria 2+ H Rare Urine Casts 0-2 0-2 OB - PN A/P Assessment and Plan (1) Hyperemesis gravidarum: Code(s): O21.0 - Mild hyperemesis gravidarum Status: Acute Time Spent With Patient Time: Total time spent is greater than 50% in coordination of care (as documented) at patient's floor/unit and/or counseling patient: Review of Systems Review of Systems: All systems reviewed & are unremarkable except as noted in HPI and below Exam Const: General: cooperative, comfortable, no acute distress and awake Nutritional Appearance: average body habitus HENMT: Head: normal to inspection Neck: Neck: normal visual inspection Chest: Chest palpation & inspection: normal inspection of the chest Resp: Effort & Inspection: normal respiratory effort and able to speak in complete sentences Auscultation: clear to auscultation bilaterally Cardio: Rate: regular rate GI: Inspection: normal to inspection Back/Spine/Pelvis: Back: no CVA tenderness Skin: General skin exam: normal color and no rashes or lesions noted Neuro: General: patient oriented x3 and moves all extremities Psych: Appearance: grossly normal Mental Status: mental status grossly normal Speech and movement: Normal speech and movement present
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
--- NOTE | 2024-02-01 15:33 | PC.NURSE ---
[id number]: Patient called out to say she ate mashed potatoes and orange juice and threw it up afterwards and is now complaining of stomach pain. RN paged CNM.
--- NOTE | 2024-02-01 16:12 | PC.NURSE ---
1612: COLLETTE responded to page. RN informed CNM of patient's complaints of stomach pain and vomiting after eating. CNM stated she is going to call Dr. Dee to discuss any other options for patient to help with N/V.
[2024-02-01] MEDS: ACETAMINOPHEN 500 MG TABLET 1000 MG PO (16:28)
--- NOTE | 2024-02-01 18:10 | PC.NURSE ---
1800: CNM on unit. CNM ordered to continue with scheduled medications. No new orders. Report given JALEN Humphries
[2024-02-01] MEDS: PYRIDOXINE HCL 50 MG TABLET PO (21:09)
[2024-02-01] MEDS: diphenhydrAMINE HCL ELIXIR 12.5 MG/5 ML UDC BY MOUTH (21:09)
[2024-02-02] VITALS (13 sets, daily range): BP systolic 108–124; BP diastolic 52–70; PULSE 61–86; RESP 16–18; TEMP 36.2–36.6; O2SAT 100
[2024-02-02] MEDS: PROMETHAZINE HCL 25 MG SUPP.RECT RECTAL (01:42)
[2024-02-02] MEDS: ONDANSETRON HCL ODT 4 MG TABLET PO ×4 (01:42→20:50)
[2024-02-02] MEDS: DEXTROSE 5%/LACTATED RINGERS 1,000 ML 175 ML IV CONT (05:13)
--- NOTE | 2024-02-02 06:58 | P.PNOB_ITS ---
OB - PN: Subj Subjective Date/time seen: 02/02/24 06:58 Interval history: Pt rousable to voice. Reports continued nausea. Keeping bites of cracker and sips of fluids down. Reports having BM with each dose of phenergan. States, I can't even sit up because I get dizzy. Reports occasional palpitations. No pain in chest. Some stomach cramping. IV fluids infusing. OB - PN: Obj Data Labs 01/31/24 20:27 01/31/24 23:48 Labs: Laboratory Results - last 24 hr 02/01/24 09:21 Urine Color Yellow Urine Appearance Cloudy H Urine pH 5.5 Ur Specific [place] 1.012 Urine Protein Negative Urine Glucose (UA) Negative Urine Ketones 3+ H Ur Blood (Man) Negative Urine Nitrate Negative Urine Bilirubin Negative Urine Urobilinogen 1.0 Ur Leukocyte Esterase Negative Urine RBC 0-2 Urine WBC 6-10 H Ur Squamous Epith Cells Moderate Urine Bacteria Rare Urine Casts 0-2 OB - PN A/P Time Spent With Patient Time: Total time spent is greater than 50% in coordination of care (as documented) at patient's floor/unit and/or counseling patient: Review of Systems Review of Systems: All systems reviewed & are unremarkable except as noted in HPI and below Exam Const: General: cooperative, healthy appearing, comfortable, no acute distress, well developed, alert and awake Nutritional Appearance: average body habitus Orientation/consciousness: patient oriented x3 Limitations: no limitations HENMT: Head: normal to inspection Resp: Effort & Inspection: normal respiratory effort and able to speak in complete sentences GI: Inspection: normal to inspection Auscultation: normal bowel sounds Back/Spine/Pelvis: Back: no CVA tenderness Skin: General skin exam: normal color, no rashes or lesions noted and turgor normal Neuro: General: patient oriented x3 and moves all extremities Speech: normal speech Extrem: General: normal to inspection Psych: Appearance: grossly normal Mental Status: mental status grossly normal Speech and movement: Normal speech and movement present Affect: normal affect Attitude: cooperative Thought process: Normal thought process present
--- NOTE | 2024-02-02 07:01 | ECG_ITS ---
Test Date: 2024-02-02 07:48:29 Measurements Intervals [place] Rate: 72 P: 63 LA: 177 QRS: 40 QRSD: 97 T: 28 QT: 365 QTc: 401 Interpretive Statements SINUS RHYTHM No previous ECG available for comparison Electronically Signed On 02-02-2024 10:53:35 CDT by Saad Arce M.D.
--- NOTE | 2024-02-02 07:08 | P.PNOB_ITS ---
OB - PN: Subj Subjective Date/time seen: 02/02/24 07:00 Interval history: pt reports hx of depression and anxiety, hx meds. Discussed resuming medication. reviewed risks and benefits. Agreeable. Plan to start zoloft OB - PN: Obj Data Labs 01/31/24 20:27 01/31/24 23:48 Labs: Laboratory Results - last 24 hr 02/01/24 09:21 Urine Color Yellow Urine Appearance Cloudy H Urine pH 5.5 Ur Specific [place] 1.012 Urine Protein Negative Urine Glucose (UA) Negative Urine Ketones 3+ H Ur Blood (Man) Negative Urine Nitrate Negative Urine Bilirubin Negative Urine Urobilinogen 1.0 Ur Leukocyte Esterase Negative Urine RBC 0-2 Urine WBC 6-10 H Ur Squamous Epith Cells Moderate Urine Bacteria Rare Urine Casts 0-2 OB - PN A/P Time Spent With Patient Time: Total time spent is greater than 50% in coordination of care (as documented) at patient's floor/unit and/or counseling patient:
--- NOTE | 2024-02-02 07:15 | PM.OBPNVD ---
OB - PN: Subj Subjective Date/time seen: 02/02/24 07:10 Interval history: Pt also reports having a boil on her labia. OB - PN: Obj Data Labs 01/31/24 20:27 01/31/24 23:48 Labs: Laboratory Results - last 24 hr 02/01/24 09:21 Urine Color Yellow Urine Appearance Cloudy H Urine pH 5.5 Ur Specific [place] 1.012 Urine Protein Negative Urine Glucose (UA) Negative Urine Ketones 3+ H Ur Blood (Man) Negative Urine Nitrate Negative Urine Bilirubin Negative Urine Urobilinogen 1.0 Ur Leukocyte Esterase Negative Urine RBC 0-2 Urine WBC 6-10 H Ur Squamous Epith Cells Moderate Urine Bacteria Rare Urine Casts 0-2 OB - PN A/P Time Spent With Patient Time: Total time spent is greater than 50% in coordination of care (as documented) at patient's floor/unit and/or counseling patient: Exam Narrative: right labia majora with 2, 1cm round, firm, tender masses.
[2024-02-02 08:35] LABS: Alanine Aminotransferase 6 U/L (6-35); Albumin Level 2.9 g/dL (3.5-5.1); Alkaline Phosphatase 39 U/L (38-126); Anion Gap 5 mmol/L (4-12); Aspartate Amino Transferase 12 U/L (14-36); Bilirubin,Total 0.4 mg/dL (0.2-1.3); Calcium 8.3 mg/dL (8.4-10.2); Carbon Dioxide 19 mmol/L (22-30); Chloride 111 mmol/L (98-107); Estimated CRCL calculation 113 ml/min; Estimated Glomerular Filt Rate > 60; Glucose 222 mg/dL (65-110); Potassium 3.2 mmol/L (3.4-5.0); Sodium 135 mmol/L (137-145)
[2024-02-02 08:37] LABS: Blood Urea Nitrogen < 2 mg/dL (7-17)
--- NOTE | 2024-02-02 08:50 | P.PNOB_ITS ---
OB - PN: Subj Subjective Date/time seen: 02/02/24 08:50 Interval history: CMP reviewed. Plan potassium IVPB for hypokalemia. OB - PN: Obj Data Labs 01/31/24 20:27 02/02/24 08:05 Labs: Laboratory Results - last 24 hr 02/01/24 02/02/24 09:21 08:05 Sodium 135 L Potassium 3.2 L Chloride 111 H Carbon Dioxide 19 L Anion Gap 5 BUN < 2 L Creatinine 0.50 L Estim Creat Clear Calc 113 Estimated GFR > 60 Glucose 222 H Calcium 8.3 L Total Bilirubin 0.4 AST 12 L ALT 6 Alkaline Phosphatase 39 Total Protein 5.0 L Albumin 2.9 L Urine Color Yellow Urine Appearance Cloudy H Urine pH 5.5 Ur Specific [place] 1.012 Urine Protein Negative Urine Glucose (UA) Negative Urine Ketones 3+ H Ur Blood (Man) Negative Urine Nitrate Negative Urine Bilirubin Negative Urine Urobilinogen 1.0 Ur Leukocyte Esterase Negative Urine RBC 0-2 Urine WBC 6-10 H Ur Squamous Epith Cells Moderate Urine Bacteria Rare Urine Casts 0-2 OB - PN A/P Time Spent With Patient Time: Total time spent is greater than 50% in coordination of care (as documented) at patient's floor/unit and/or counseling patient:
[2024-02-02 08:58] LABS: Thyroid Stimulating Hormone 0.566 uIU/mL (0.465-4.680)
[2024-02-02 09:00] LABS: Free T4 Free Thyroxine 1.07 ng/mL (0.78-2.19)
[2024-02-02] MEDS: CEPHALEXIN 500 MG CAPSULE PO (09:11)
[2024-02-02] MEDS: SERTRALINE HCL 50 MG TABLET PO (09:12)
[2024-02-02] MEDS: FAMOTIDINE 10 MG TABLET PO ×2 (09:12→21:46)
[2024-02-02] MEDS: PYRIDOXINE HCL 25 MG TABLET PO (09:12)
[2024-02-02] MEDS: POTASSIUM CHLORIDE INJ 40 MEQ in SODIUM CHLORIDE 0.9% IV 500 ML 130 MEQ IVPB (09:14)
--- NOTE | 2024-02-02 10:26 | PC.NURSE ---
0940 IV in right lower forearm burning/infiltrated, IV fluid stopped. 0945 Vasyl Boyer, Labor RN attempted IV restart, unsuccessful. This RN to call IV Specialist to place IV with ultrasound. 0974 Thanh Pepe RN here to start IV with ultrasound. See IV documentation for insertion and removal. 1015 D5LR started @ 50mls per hour and running concurrent with Potassium fluids at 125ml per hour for comfort. Patient is comfortable and no burning or pain with IV site and fluids running. RN to continue to assess.
[2024-02-02] MEDS: hydrOXYzine HCL 25 MG TABLET PO (11:37)
[2024-02-02] MEDS: DEXTROSE 5%/LACTATED RINGERS 1,000 ML 100 ML IV CONT (16:47)
[2024-02-02] MEDS: PROMETHAZINE HCL 25 MG/ML AMPUL 12.5 MG IV PUSH ×2 (16:49→23:23)
--- NOTE | 2024-02-02 17:52 | PM.OBPNVD ---
OB - PN: Subj Subjective Date/time seen: 02/02/24 17:52 Interval history: Per RN, pt dizzy with ambulation. Dr. Zana Schmidt reviewed pt and banana bag ordered. Plan to infuse banana bag and IV fluids overnight. Add PO phenergan and encourage pt to attempt small amounts of PO food and fluids. Plan to reevaluate in the am. OB - PN: Obj Data Labs 01/31/24 20:27 02/02/24 08:05 Labs: Laboratory Results - last 24 hr 02/02/24 08:05 Sodium 135 L Potassium 3.2 L Chloride 111 H Carbon Dioxide 19 L Anion Gap 5 BUN < 2 L Creatinine 0.50 L Estim Creat Clear Calc 113 Estimated GFR > 60 Glucose 222 H Calcium 8.3 L Total Bilirubin 0.4 AST 12 L ALT 6 Alkaline Phosphatase 39 Total Protein 5.0 L Albumin 2.9 L TSH 0.566 Free T4 1.07 OB - PN A/P Time Spent With Patient Time: Total time spent is greater than 50% in coordination of care (as documented) at patient's floor/unit and/or counseling patient:
[2024-02-02] MEDS: PYRIDOXINE HCL 50 MG TABLET PO (21:46)
[2024-02-03] MEDS: ONDANSETRON HCL ODT 4 MG TABLET PO ×2 (09:55→17:21)
[2024-02-03] MEDS: FAMOTIDINE 10 MG TABLET PO ×2 (09:55→21:38)
[2024-02-03] MEDS: ACETAMINOPHEN 500 MG TABLET 1000 MG PO (11:50)
[2024-02-03] MEDS: PROMETHAZINE HCL 25 MG TABLET PO ×2 (11:50→21:38)
[2024-02-03] MEDS: DEXTROSE 5%/LACTATED RINGERS 1,000 ML 125 ML IV CONT (11:51)
--- NOTE | 2024-02-03 12:40 | P.PNOB_ITS ---
OB - PN: Subj Subjective Date/time seen: 02/03/24 0720 Interval history: Ate a small bag of pretzels overnight and vomited. Encouraged to have 1-2 single pretzels and wait 20-30 minutes before attempting more. Very slow po intake encouraged. Feels weak . Denies bleeding or cramping. Tolerating most medication po. Discussed plan to transition all meds to PO and anticipate discharge home. Patient comments: other (nausea) OB - PN: Obj Data Labs 01/31/24 20:27 02/02/24 08:05 OB - PN A/P Assessment and Plan (1) Hyperemesis gravidarum: Code(s): O21.0 - Mild hyperemesis gravidarum Status: Acute (2) Anxiety and depression: Code(s): F41.9 - Anxiety disorder, unspecified; F32.9 - Major depressive disorder, single episode, unspecified Status: Acute (3) Cannabis abuse, daily use: Code(s): F12.10 - Cannabis abuse, uncomplicated Status: Acute (4) 7 weeks gestation of : Code(s): Z3A.01 - Less than 8 weeks gestation of Status: Acute (5) Dehydration: Code(s): E86.0 - Dehydration Status: Acute Time Spent With Patient Time: Total time spent is greater than 50% in coordination of care (as documented) at patient's floor/unit and/or counseling patient: Review of Systems Review of Systems: All systems reviewed & are unremarkable except as noted in HPI and below Exam Const: General: cooperative, healthy appearing, comfortable, no acute distress and awake HENMT: Head: normal to inspection Eyes: General: appearance normal, both eyes and all related structures Neck: Neck: normal visual inspection Resp: Effort & Inspection: normal respiratory effort and able to speak in complete sentences Cardio: Rate: regular rate GI: Inspection: normal to inspection GI Palp: Yes Soft to palpation Auscultation: normal bowel sounds Skin: General skin exam: normal color Other: 2 small, round 1.5 cm masses to right la senthil majora. +tenderness Neuro: General: patient oriented x3 Extrem: General: normal to inspection Psych: Appearance: grossly normal Mental Status: mental status grossly normal Speech and movement: Normal speech and movement present
--- NOTE | 2024-02-03 19:00 | PC.NURSE ---
Dr. Zana Schmidt called, update on pt vomiting after trying to eat. Orders received to continue medications through the night.
[2024-02-03] MEDS: PYRIDOXINE HCL 50 MG TABLET PO (21:38)
[2024-02-03] MEDS: CEPHALEXIN 500 MG CAPSULE PO (21:38)
[2024-02-03] MEDS: diphenhydrAMINE HCL ELIXIR 12.5 MG/5 ML UDC BY MOUTH (21:40)
[2024-02-03] MEDS: CAPSAICIN 0.025% CREAM 60 GM TUBE 1 APPLIC TOPICAL (21:44)
[2024-02-03 21:46] VITALS: BP 120/67; PULSE 66; PULSE 69; O2SAT 100
[2024-02-04] MEDS: PROMETHAZINE HCL 25 MG TABLET PO ×2 (01:51→05:40)
[2024-02-04] MEDS: ONDANSETRON HCL ODT 4 MG TABLET PO ×2 (01:51→08:04)
[2024-02-04] MEDS: CAPSAICIN 0.025% CREAM 60 GM TUBE 1 APPLIC TOPICAL ×2 (01:53→05:44)
[2024-02-04 01:54] VITALS: PULSE 72; O2SAT 100
[2024-02-04 01:55] VITALS: BP 118/63; PULSE 64; PULSE 72; RESP 16; TEMP 37.1; O2SAT 100
[2024-02-04 05:43] VITALS: BP 112/69; PULSE 62; PULSE 64; RESP 16; TEMP 36.7; O2SAT 100
[2024-02-04] MEDS: DEXTROSE 5%/LACTATED RINGERS 1,000 ML 125 ML IV CONT (06:10)
--- NOTE | 2024-02-04 06:12 | PC.NURSE ---
Report given to Scout Chamberlain RN.
[2024-02-04] MEDS: SIMETHICONE 80 MG TAB.CHEW PO (09:02)
[2024-02-04] MEDS: FAMOTIDINE 10 MG TABLET PO (09:02)
[2024-02-04] MEDS: SERTRALINE HCL 50 MG TABLET PO (09:02)
[2024-02-04] MEDS: PYRIDOXINE HCL 25 MG TABLET PO (09:02)
[2024-02-04] MEDS: CEPHALEXIN 500 MG CAPSULE PO (09:02)
--- NOTE | 2024-02-04 09:43 | PM.DS ---
DS: Admitting Diagnosis Discharge Date 02/04/24 Admitting Diagnosis Hyperemesis Gravidarum DS: Discharge Diagnosis Discharge Diagnosis (1) Hyperemesis gravidarum: Code(s): O21.0 - Mild hyperemesis gravidarum Status: Acute (2) Dehydration: Code(s): E86.0 - Dehydration Status: Acute (3) Intractable nausea and vomiting: Code(s): R11.2 - Nausea with vomiting, unspecified Status: Acute (4) Anxiety and depression: Code(s): F41.9 - Anxiety disorder, unspecified; F32.9 - Major depressive disorder, single episode, unspecified Status: Acute (5) Tobacco abuse: Code(s): Z72.0 - Tobacco use Status: Acute (6) Cannabis abuse, daily use: Code(s): F12.10 - Cannabis abuse, uncomplicated Status: Acute (7) Abdominal pain: Qualifiers: Abdominal location: generalized Qualified Code(s): R10.84 - Generalized abdominal pain Code(s): R10.9 - Unspecified abdominal pain Status: Acute DS: Summary Hospital Course Hospital Course: Uncomplicated Time spent discussing smoking cessation with patient: more than 10 minutes Status at Discharge Functional status at discharge: independent ambulation Overall status at discharge: patient is progressing back to baseline Time Spent with Patient Time attestation: Total time spent providing and/or coordinating discharge services: Time spent: Greater than 30 minutes Exam Narrative: Bedside assessment from 02/03/24 pm Const: General: comfortable and no acute distress Eyes: General: appearance normal, both eyes and all related structures Neck: Neck: supple Resp: Effort & Inspection: normal respiratory effort Cardio: Rate: regular rate GI: GI Palp: Yes Soft to palpation Auscultation: normal bowel sounds Other: nontender : External Female Exam: normal external appearance Other: 2 small round 1.5 cm tender lesions to right mons. Skin intact, no drainage. Skin: General skin exam: normal color and no rashes or lesions noted Neuro: Sensory Exam: normal sensation Extrem: General: normal to inspection Psych: Mental Status: mental status grossly normal Affect: normal affect Discharge Plan Discharge Attending physician on discharge: Chata Wiley Consulting providers: Gilberto Campbell Discharging Clinician: Renuka Caraballo Patient Disposition: Home, Self-Care Activity: as tolerated Diet: as tolerated and bland Wound Care Instructions: follow printed instructions Discharge Instructions: OB ANTEPARTUM DISCHARGE INSTRUCTIONS This information is given to help you properly care for yourself at home after your discharge from the hospital. Follow these instructions until your doctor tells you otherwise. DIET: Small Frequent Feedings Drink at Least Eight 8-Ounce Glasses of Caffeine-Free Beverages Daily B[place]soe Advance As Tolerated Additional Diet Instructions: ACTIVITY: As Tolerated Additional Activity Instructions: RETURN TO LABOR AND DELIVERY IF YOU HAVE: Additional Reasons to Return to Labor and Delivery: Contractions may feel like abdominal pain, tightening, cramping, pressure, back ache, or thigh ache. OTHER INSTRUCTIONS: May take Simethicone/gas x Colace daily Miralax as needed Unisom 1/2 of a tablet, a whole tablet if needed B6 In the morning B6 In the evening FOLLOW-UP CARE: Call Office and Make Appointment To see in/stone carriage operator for an appointment Valuables released to patient or family? N/A Medications from home returned to patient? N/A I Acknowledge Receipt of and Understand the Above Instructions IF YOU HAVE ANY QUESTIONS REGARDING THESE INSTRUCTIONS, PLEASE CALL [phone]. IF PROBLEMS ARISE, CALL YOUR PROVIDER. IF EMERGENCY CARE IS NEEDED, [facility] EMERGENCY ROOM IS AVAILABLE 24 HOURS A DAY. Patient Instructions: Antibiotic Form Stand Alone Forms:
== END 2024-02-04 09:50 | disposition home or self-care (01) ==
LOC: ANHED 20:06 → ANHOBPP 02-01 01:57
PROVIDERS: Advanced Practice Midwife; Emergency Medicine; Admitting Provider Obstetrics & Gynecology Gynecology; Emergency Provider Physician Assistant; PCP Family Medicine; Visit Provider Obstetrics & Gynecology Gynecology
DX: O21.0 Mild hyperemesis gravidarum (principal); O99.281 Endocrine, nutritional and metabolic diseases complicating pregnancy, first trimester; E86.0 Dehydration; E87.6 Hypokalemia; O34.71 Maternal care for abnormality of vulva and perineum, first trimester; N90.89 Other specified noninflammatory disorders of vulva and perineum; O99.331 Smoking (tobacco) complicating pregnancy, first trimester; F17.210 Nicotine dependence, cigarettes, uncomplicated; O99.321 Drug use complicating pregnancy, first trimester; F12.90 Cannabis use, unspecified, uncomplicated; O99.341 Other mental disorders complicating pregnancy, first trimester; F41.9 Anxiety disorder, unspecified; F32.A Depression, unspecified; Z3A.01 Less than 8 weeks gestation of pregnancy
CPT/HCPCS: 36415; 80048; 80053; 81001; 83690; 83735; 84439; 84443; 84702; 85025; 87086; 87088; 93005; 96361; 96365; 96366; 96374; 96375; 96376; 99285; A9270; G0378; J0696; J1200; J2405; J2550; J2765; J3411; J3475; J3480; J7030; J7040; J7042; J7121

== ENCOUNTER 2024-02-23 10:57 | Outpatient (CLI) | payer OTHER, MEDICAID, SELFPAY ==
--- NOTE | ~2024-02-23 | US_ITS ---
EXAMINATION: US OB <= 14 weeks fetus DATE: 02/23/2024 12:02 INDICATION: Subchorionic hematoma during first trimester TECHNIQUE: Real-time pelvic ultrasound utilizing both a transvaginal and transabdominal probe was pe rformed. The interpreting radiologist was not present for the study. COMPARISON: 01/27/24 FINDINGS: The uterus measures 8.7 x 7.7 x 7.9 cm. There is an intrauterine gestational sac. A yolk sac and fet al pole are identified. The crown rump length measures 3.7 cm, which is concordant within 4 days of t he previously estimated gestational age of 10 weeks and 6 days. heart motion is identified francisca uring 155 beats per minute (bpm) by M-mode Doppler. There is a persistent 2.8 x 1.8 x 1.5 cm hypoecho ic subchorionic hematoma along the left inferior margin of the gestational sac. The right ovary measures 2.1 x 1.7 x 1.5 cm. The left ovary measures 2.9 x 2.7 x 1.2 cm. 1.1 cm anech oic likely corpus luteum cyst in the left ovary. There is vascular flow on color Doppler at both ovar ies. There is no free fluid in the pelvis. IMPRESSION: 1. Single living fetus with heart rate of 155 bpm. 2. [place]-rump length of 3.7 cm which is concordant within 4 days of previously estimated gestational age by ultrasound of 10 weeks 6 day(s) with ultrasound estimated date of delivery (ELIZABETH) of 09/14/2024. Reviewed, dictated and finalized at location B. IMPRESSION: 1. Single living fetus with heart rate of 155 bpm. 2. [place]-rump length of 3.7 cm which is concordant within 4 days of previously estimated gestational age by ultrasound of 10 weeks 6 day(s) with ultrasound es timated date of delivery (ELIZABETH) of 09/14/2024.
== END 2024-02-23 10:58 | disposition home or self-care (01) ==
PROVIDERS: PCP Family Medicine; Visit Provider Obstetrics & Gynecology Gynecology
DX: O36.8910 Maternal care for other specified fetal problems, first trimester, not applicable or unspecified (principal); Z3A.10 10 weeks gestation of pregnancy
CPT/HCPCS: 76801

== ENCOUNTER 2024-03-17 03:11 | Emergency (ER) | payer MEDICAID, SELFPAY ==
[2024-03-17 03:13] VITALS: BP 111/67; PULSE 78; RESP 14; TEMP 36.7; O2SAT 100
[2024-03-17 03:44] LABS: Basophils Absolute Auto 0.1 K/mm3 (0.0-0.1); Basophils Percent Auto 0.5 % (0.2-1.2); Eosinophils Absolute Auto 0.2 K/mm3 (0-0.3); Eosinophils Percent Auto 1.4 % (0-4.4); Hematocrit 29.1 % (37.0-47.0); Immature Granulocyte Absolute 0.04 K/mm3 (0.00-0.031); Immature Granulocyte Percent A 0.3 % (0-0.5); Lymphocytes Absolute Auto 2.96 K/mm3 (0.9-3.2); Mean Corpuscular HGB Conc 34.4 g/dl (32-36); Mean Corpuscular Hemoglobin 33.7 pg (26-34); Mean Platelet Volume 10.1 fl (7.4-10.4); Monocytes Absolute Auto 0.8 K/mm3 (0.1-0.6); Monocytes Percent Auto 6.5 % (2.6-8.5); Neutrophils Absolute Auto 7.8 K/mm3 (1.3-6.7); Neutrophils Percent Auto 66.3 % (45.5-73.1); Platelet Count Result 277 k/mm3 (150-375); Red Blood Count 2.97 M/mm3 (4.2-5.4); Red Cell Distribution Width 12.3 % (11.5-14.5); White Blood Count 11.8 K/mm3 (4.5-10.0)
[2024-03-17 03:49] LABS: Appearance Urine Cloudy (Clear); Bacteria Urine 4+ /hpf; Bilirubin Urine Negative (Negative); Blood Urine Negative (Negative); Color Urine Yellow (Yellow); Glucose Urine UA Negative (Negative); Ketones Urine Negative (Negative); Leukocyte Esterase Ur Negative LEU/UL (Negative); Nitrate Urine Positive (Negative); Non Pathogenic Casts 0-2; Protein Urine Negative (Negative); RBC Urine 0-2 /hpf (0-2); Specific Grav Ur 1.023 (1.001-1.035); Squamous Epithelial Cell Urine Few /hpf (Few); WBC Urine 0-5 /hpf (0-3)
[2024-03-17 03:53] LABS: Alanine Aminotransferase 9 U/L (6-35); Albumin Level 3.7 g/dL (3.5-5.1); Alkaline Phosphatase 45 U/L (38-126); Anion Gap 10 mmol/L (4-12); Aspartate Amino Transferase 17 U/L (14-36); Bilirubin,Total 0.3 mg/dL (0.2-1.3); Blood Urea Nitrogen 8 mg/dL (7-17); Calcium 8.8 mg/dL (8.4-10.2); Carbon Dioxide 21 mmol/L (22-30); Chloride 104 mmol/L (98-107); Estimated CRCL calculation 129 ml/min; Estimated Glomerular Filt Rate > 60; Glucose 85 mg/dL (65-110); Lipase 52 U/L (23-300); Potassium 3.5 mmol/L (3.4-5.0); Sodium 135 mmol/L (137-145)
[2024-03-17 03:55] LABS: BEDSIDEPREGUCG Positive
[2024-03-17 04:15] LABS: Add Urine Microscopic? YES
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
[2024-03-17] MEDS: ACETAMINOPHEN 500 MG TABLET 1000 MG PO (05:13)
[2024-03-17 06:23] VITALS: BP 108/60; PULSE 84; RESP 15; O2SAT 100
== END 2024-03-17 07:08 | disposition home or self-care (01) ==
PROVIDERS: Emergency Provider Student in an Organized Health Care Education/Training Program; PCP Family Medicine
DX: D72.829 Elevated white blood cell count, unspecified (principal); D64.9 Anemia, unspecified; F17.210 Nicotine dependence, cigarettes, uncomplicated
CPT/HCPCS: 36415; 80053; 81001; 81025; 83690; 84702; 85025; 86850; 86900; 86901; 99283; A9270

== ENCOUNTER 2024-03-21 13:55 | Outpatient (CLI) | payer MEDICAID, SELFPAY ==
--- NOTE | ~2024-03-21 | US_ITS ---
EXAMINATION: US OB limited DATE: 03/21/2024 15:00 INDICATION: Follow-up subchorionic hematoma during early second trimester TECHNIQUE: Real-time ultrasound of the pelvis was performed. The interpreting radiologist was not pre sent for the study. COMPARISON: 02/23/2024 FINDINGS: There is a single living fetus in breech presentation. The placenta is anterior. The prior subchorio arley hematoma is no longer visualized and has likely resolved. heart rate is 155 beats per minut e (bpm). The amniotic fluid volume is subjectively normal. IMPRESSION: 1. Single living fetus in breech presentation with heart rate of 155 bpm. 2. Normal anterior placenta with resolution of prior subchorionic hematoma. Reviewed, dictated and finalized at location A. IMPRESSION: 1. Single living fetus in breech presentation with heart rate of 155 bpm . 2. Normal anterior placenta with resolution of prior subchorionic hematoma.
== END 2024-03-21 13:56 | disposition home or self-care (01) ==
PROVIDERS: PCP Family Medicine; Visit Provider Obstetrics & Gynecology Gynecology
DX: O36.8910 Maternal care for other specified fetal problems, first trimester, not applicable or unspecified (principal); Z3A.00 Weeks of gestation of pregnancy not specified
CPT/HCPCS: 76815

== ENCOUNTER 2024-06-24 09:30 | Observation (INO) | payer MEDICAID, SELFPAY ==
[2024-06-24 10:30] LABS: Basophils Percent Auto 0.5 % (0.2-1.2); Eosinophils Absolute Auto 0.1 K/mm3 (0-0.3); Eosinophils Percent Auto 0.7 % (0-4.4); Hematocrit 29.3 % (37.0-47.0); Hemoglobin 9.6 g/dL (12.0-15.0); Immature Granulocyte Absolute 0.03 K/mm3 (0.00-0.031); Immature Granulocyte Percent A 0.4 % (0-0.5); Lymphocytes Absolute Auto 1.67 K/mm3 (0.9-3.2); Lymphocytes Percent Auto 19.8 % (18.3-44.2); Mean Corpuscular HGB Conc 32.8 g/dl (32-36); Mean Corpuscular Hemoglobin 33.3 pg (26-34); Mean Corpuscular Volume 101.7 fl (80-100); Mean Platelet Volume 10.6 fl (7.4-10.4); Monocytes Absolute Auto 0.6 K/mm3 (0.1-0.6); Monocytes Percent Auto 7.1 % (2.6-8.5); Neutrophils Percent Auto 71.5 % (45.5-73.1); Platelet Count Result 227 k/mm3 (150-375); Red Blood Count 2.88 M/mm3 (4.2-5.4); Red Cell Distribution Width 11.7 % (11.5-14.5); White Blood Count 8.4 K/mm3 (4.5-10.0)
--- NOTE | 2024-06-24 10:33 | PC.NURSE ---
Pt was drinking a juice upon arrival. Did not perform 1hr gtt, instructed pt we will perform this test tomorrow.
[2024-06-24 10:37] VITALS: BP 113/71; PULSE 72; BMI 30.2
--- NOTE | 2024-06-24 10:50 | OBADM ---
This patient, Josephine Alejandre, admitted to the OB room OB Post 113 for observation. Patient/family oriented to hospital policies and general routines including ID bracelet, bed and alarms, visiting hours, pain management, procedures, bathroom and other care routines, personal items, smoking policy, room service/diet, and visiting hours. Patient/Family are encouraged to report perceived risks to care and to ask questions if they do not understand what they are told or what they should do.
[2024-06-24] MEDS: ceFAZolin 2 GM/D5W 50 ML 2 GM/50 ML BAG IVPB ×2 (11:18→19:45)
[2024-06-24 11:19] LABS: Vitamin D 25 Hydroxy 14.4 ng/mL
[2024-06-24] MEDS: SERTRALINE HCL 50 MG TABLET PO (11:21)
[2024-06-24] MEDS: MULTIVIT/MIN/PREN/FOL AC/IRON TABLET 1 TAB PO (11:22)
[2024-06-24] MEDS: CHOLECALCIFEROL 1,000 UNITS TABLET 7000 UNITS PO (11:22)
[2024-06-24] MEDS: FERROUS SULFATE 325 MG TABLET DR PO (11:22)
[2024-06-24 11:26] LABS: HIV 1/2 Ab P24 Ag Result Negative (Negative)
[2024-06-24 11:35] LABS: Estimated CRCL calculation 164 ml/min; Estimated Glomerular Filt Rate > 60
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
[2024-06-24] MEDS: GENTAMICIN SULFATE INJ 375 MG in DEXTROSE 5% 100 ML 100 MG IVPB (13:05)
[2024-06-24 14:10] VITALS: TEMP 35.9
[2024-06-24 14:12] VITALS: BP 116/58; PULSE 76
--- NOTE | 2024-06-24 19:18 | PC.NURSE ---
Spoke with Dr Zana Schmidt, covering for Hoang Caraballo, reported patient is having Nausea and Vomiting following her evening meal. Patient reported having regular bouts of nausea and vomiting throughout her . Patient also reports having Phenergan at home to take as needed for vomiting. New orders to give patient Phenergan 12.5 q4h PRN for nausea and vomiting.
[2024-06-24] MEDS: PROMETHAZINE HCL 25 MG/ML AMPUL 12.5 MG IV PUSH (19:38)
[2024-06-24 22:30] VITALS: TEMP 36.3
[2024-06-24 22:40] VITALS: BP 113/63; PULSE 67
[2024-06-25] MEDS: ceFAZolin 2 GM/D5W 50 ML 2 GM/50 ML BAG IVPB ×3 (03:47→19:40)
--- NOTE | 2024-06-25 03:51 | PC.NURSE ---
Patient given glucose drink for one hour glucose testing
[2024-06-25] MEDS: PROMETHAZINE HCL 25 MG/ML AMPUL 12.5 MG IV PUSH (04:46)
[2024-06-25 05:17] LABS: Estimated CRCL calculation 164 ml/min; Estimated Glomerular Filt Rate > 60
[2024-06-25 05:18] LABS: Glucose 1 Hour PP 50gm Dose 121 mg/dL
[2024-06-25] MEDS: SERTRALINE HCL 50 MG TABLET PO (08:58)
[2024-06-25] MEDS: MULTIVIT/MIN/PREN/FOL AC/IRON TABLET 1 TAB PO (08:58)
[2024-06-25] MEDS: ASPIRIN 81 MG CHEWABLE TABLET PO (08:58)
[2024-06-25] MEDS: CHOLECALCIFEROL 1,000 UNITS TABLET 7000 UNITS PO (08:59)
[2024-06-25] MEDS: FERROUS SULFATE 325 MG TABLET DR PO (08:59)
[2024-06-25] MEDS: PROMETHAZINE HCL 12.5 MG TABLET PO ×2 (09:04→22:06)
[2024-06-25 09:09] VITALS: BP 113/66; PULSE 66
[2024-06-25 09:10] VITALS: TEMP 36.1
[2024-06-25 11:29] LABS: Rapid Plasma Reagin Non-Reactive (NonReactive)
[2024-06-25] MEDS: GENTAMICIN SULFATE INJ 375 MG in DEXTROSE 5% 100 ML 100 MG IVPB (13:51)
[2024-06-25 13:55] VITALS: BP 143/75; PULSE 74
[2024-06-25 19:51] VITALS: BP 133/72; PULSE 84
[2024-06-26] MEDS: ceFAZolin 2 GM/D5W 50 ML 2 GM/50 ML BAG IVPB ×3 (02:39→17:56)
[2024-06-26 02:42] VITALS: BP 116/52; PULSE 66
--- NOTE | 2024-06-26 05:17 | PM.OBPNVD ---
OB - PN: Subj Subjective Date/time seen: 06/26/24 05:17 Patient comments: no complaints and pain well controlled OB - PN: Obj Data Labs 06/24/24 10:19 06/25/24 04:50 Labs: Laboratory Results - last 24 hr 06/24/24 10:19 RPR Non-reactive OB - PN A/P Plan Comments: remains afebrile and asymptomatic Time Spent With Patient Time: Total time spent is greater than 50% in coordination of care (as documented) at patient's floor/unit and/or counseling patient: Time with patient: less than 15 minutes Exam Const: General: cooperative, healthy appearing and comfortable Nutritional Appearance: average body habitus Orientation/consciousness: oriented to person, oriented to place and oriented to time Resp: Effort & Inspection: normal respiratory effort Cardio: Rate: regular rate Rhythm: regular rhythm Heart sounds: S1 normal heart sound present and S2 normal heart sound present
[2024-06-26] MEDS: ASPIRIN 81 MG CHEWABLE TABLET PO (08:56)
[2024-06-26] MEDS: FERROUS SULFATE 325 MG TABLET DR PO (08:56)
[2024-06-26] MEDS: MULTIVIT/MIN/PREN/FOL AC/IRON TABLET 1 TAB PO (08:56)
[2024-06-26] MEDS: CHOLECALCIFEROL 1,000 UNITS TABLET 7000 UNITS PO (08:57)
[2024-06-26] MEDS: SERTRALINE HCL 50 MG TABLET PO (08:57)
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
[2024-06-26 10:07] VITALS: BP 118/65; PULSE 90
[2024-06-26 10:12] VITALS: TEMP 36.3
[2024-06-26] MEDS: GENTAMICIN SULFATE INJ 375 MG in DEXTROSE 5% 100 ML 100 MG IVPB (12:54)
[2024-06-26 17:57] VITALS: BP 130/62; PULSE 69
[2024-06-26 18:00] VITALS: TEMP 36.2
[2024-06-26] MEDS: PROMETHAZINE HCL 12.5 MG TABLET PO (20:46)
[2024-06-26 20:50] VITALS: BP 123/62; PULSE 64
[2024-06-27 02:40] VITALS: BP 114/54; PULSE 68; TEMP 36.4
[2024-06-27] MEDS: ceFAZolin 2 GM/D5W 50 ML 2 GM/50 ML BAG IVPB (02:40)
[2024-06-27 07:07] VITALS: TEMP 36.2
[2024-06-27 07:08] VITALS: BP 113/62; PULSE 88
[2024-06-27 07:50] VITALS: BP 113/62; PULSE 65
--- NOTE | 2024-06-27 08:15 | PM.OBPNVD ---
OB - PN: Subj Subjective Date/time seen: 06/27/24 08:15 Patient comments: no complaints OB - PN: Obj Data Labs 06/24/24 10:19 06/25/24 04:50 OB - PN A/P Assessment and Plan (1) Asymptomatic bacteriuria during : Code(s): O99.891 - Other specified diseases and conditions complicating ; R82.71 - Bacteriuria Status: Acute Assessment and Plan: s/p 72 hours IV gent and ancef dc home on macrobid daily Time Spent With Patient Time: Total time spent is greater than 50% in coordination of care (as documented) at patient's floor/unit and/or counseling patient: Exam Const: Other: no cva tenderness no suprapubic tenderness FHTs 140's category I
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
[2024-06-27] MEDS: MULTIVIT/MIN/PREN/FOL AC/IRON TABLET 1 TAB PO (08:40)
[2024-06-27] MEDS: FERROUS SULFATE 325 MG TABLET DR PO (08:40)
[2024-06-27] MEDS: ASPIRIN 81 MG CHEWABLE TABLET PO (08:40)
[2024-06-27] MEDS: SERTRALINE HCL 50 MG TABLET PO (08:40)
[2024-06-27] MEDS: CHOLECALCIFEROL 1,000 UNITS TABLET 7000 UNITS PO (08:40)
== END 2024-06-27 09:10 | disposition home or self-care (01) ==
PROVIDERS: Advanced Practice Midwife; Admitting Provider Obstetrics & Gynecology Gynecology; PCP Family Medicine; Visit Provider Obstetrics & Gynecology Gynecology
DX: O99.891 Other specified diseases and conditions complicating pregnancy (principal); R82.71 Bacteriuria; O99.333 Smoking (tobacco) complicating pregnancy, third trimester; F17.210 Nicotine dependence, cigarettes, uncomplicated; O99.343 Other mental disorders complicating pregnancy, third trimester; F32.A Depression, unspecified; F41.9 Anxiety disorder, unspecified; F43.10 Post-traumatic stress disorder, unspecified; O99.613 Diseases of the digestive system complicating pregnancy, third trimester; K58.9 Irritable bowel syndrome, unspecified; Z3A.28 28 weeks gestation of pregnancy; Z11.4 Encounter for screening for human immunodeficiency virus [HIV]; Z90.5 Acquired absence of kidney; Z79.82 Long term (current) use of aspirin; Z79.899 Other long term (current) drug therapy; Z86.19 Personal history of other infectious and parasitic diseases
CPT/HCPCS: 36415; 59025; 80170; 82306; 82565; 82947; 85025; 86592; 86703; 96365; 96366; 96367; A9270; G0378; G0379; G0432; J0690; J1580; J2550

== ENCOUNTER 2024-08-15 10:40 | Outpatient (CLI) | payer OTHER, SELFPAY ==
--- NOTE | ~2024-08-15 | US_ITS ---
EXAMINATION: US OB follow up DATE: 08/15/2024 11:42 INDICATION: Estimated size less than expected for estimated gestational age during third trimes ter. TECHNIQUE: Real-time ultrasound of the pelvis was performed. The interpreting radiologist was not pre sent for the study. COMPARISON: None. FINDINGS: There is a single living fetus in breech presentation. The placenta is anterior fundal. heart rate is 134 beats per minute (bpm). The amniotic fluid index is 9.3 cm, which is normal (5th%-95%: 7 .9-34.9 cm at 35 weeks estimated gestational age). The region of the cervix is obscured. The following biometric data were obtained: BPD: 8.3 cm -> 33 weeks 4 days Head circumference: 30.6 cm -> 34 weeks 0 days Abdominal circumference: 30.9 cm -> 34 weeks 6 days Femur length: 6.9 cm -> 35 weeks 2 days These measurements are concordant. Head circumference to abdominal circumference ratio: 0.99 (normal range 0.94-1.11). Estimated weight: 2500 g (+/-) 375 g or 5 lbs. 8 oz. (+/-) 13 oz. IMPRESSION: 1. Single living fetus in breech presentation with heart rate of 134 bpm. 2. Normal amniotic fluid index of 9.3 cm. 3. Estimated weight is 24th percentile by Hadlock criteria when 09/14/2024 is used as the estima arlette date of delivery (ELIZABETH). Please correlate with clinical information or earlier ultrasounds for mos t accurate ELIZABETH. Reviewed, dictated and finalized at location [facility] [employer] [employer] IMPRESSION: 1. Single living fetus in breech presentation with heart rate of 134 bpm. 2. Normal amniotic fluid index of 9.3 cm. 3. Estimated weight is 24th percentile by Hadlock criteria when 09/14/2024 is used as the estimated date of delivery (ELIZABETH). Please correlate with clinica l information or earlier ultrasounds for most accurate ELIZABETH.
== END 2024-08-15 10:41 | disposition home or self-care (01) ==
PROVIDERS: PCP Family Medicine; Visit Provider Advanced Practice Midwife
DX: O36.5930 Maternal care for other known or suspected poor fetal growth, third trimester, not applicable or unspecified (principal); Z3A.00 Weeks of gestation of pregnancy not specified
CPT/HCPCS: 76816

== ENCOUNTER 2024-08-23 06:20 | Outpatient (CLI) | payer OTHER, SELFPAY ==
[2024-08-23] VITALS (12 sets, daily range): BP systolic 116–145; BP diastolic 66–88; PULSE 62–93; O2SAT 100
[2024-08-23] MEDS: TERBUTALINE SULFATE 1 MG/ML VIAL 0.25 MG SUB-Q (07:31)
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
== END 2024-08-23 11:03 ==
LOC: ANHOBOP 06:25 → ANHOBPP 06:27
PROVIDERS: PCP Family Medicine; Visit Provider Obstetrics & Gynecology Gynecology
DX: O32.1XX0 Maternal care for breech presentation, not applicable or unspecified (principal)
CPT/HCPCS: 59412; 96372; 99199; J3105

== ENCOUNTER 2024-09-07 15:52 | Inpatient (IN) | payer OTHER, SELFPAY ==
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
--- OUTSIDE RECORDS SUMMARY | 2024-08-30 02:57 | XMS_ITS | Patient Health Summary ---
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 - CHEMISTRY ANGELA JONES Performing Organization Address [facility] Co de Phone Number [address] [phone] * ALCOHOL ETHYL BLOOD (10/27/2019 1:19 AM OBSTETRICS SPECIALIST) Pathologist [facility] Interpretation Ethanol None Detected None Detected mg/dL 10/27/2019 1:[address] [facility] Comment:Ethanol levels less than 10 mg/dL are resulted as None detected . Blood BLOOD SPECIMEN / Unknown Venipuncture / Unknown 10/27/2019 1:19 AM OBSTETRICS SPECIALIST 10/27/2019 1:22 AM OBSTETRICS SPECIALIST Rio Bhakta MD LAB - CHEMISTRY ANGELA JONES Performing Organization Address [facility] de Phone Number [address] [phone] * XR PELVIS 1 OR 2VW (10/27/2019 1:17 AM OBSTETRICS SPECIALIST) Anatomical Region Laterality Modality Pelvis Radiographic Radha ging 10/27/2019 8:11 AM OBSTETRICS SPECIALIST Impressions 10/27/2019 12:49 PM OBSTETRICS SPECIALIST IMPRESSION: No acute fracture or dislocation identified. Dictated by Lakisha Power MD (vice president lending). I, Dr. ALMA ROSA CORDON have personally reviewed and interpreted this examination/study. This report was electronically signed by ALMA ROSA CORDON ??on 10/27/2019 12:49 PM . Narrative 10/27/2019 12:49 PM OBSTETRICS SPECIALIST EXAMINATION: XR PELVIS 1 OR 2VW HISTORY: T14.90XA: Trauma COMPARISON: No prior study is available for comparison. FINDINGS: No acute fracture is identified. The bilateral hip joint spaces are preserved. The pubic symphysis is intact. The osseous architecture and density are normal. The sacroiliac joints are normal. Procedure Note Alma Rosa Cordon, DO - 10/27/2019 EXAMINATION: XR PELVIS 1 OR 2VW HISTORY: T14.90XA: Trauma COMPARISON: No prior study is available for comparison. FINDINGS: No acute fracture is identified. The bilateral hip joint spaces are preserved. The pubic symphysis is intact. The osseous architecture and density are normal. The sacroiliac joints are normal. IMPRESSION: No acute fracture or dislocation identified. Dictated by Lakisha Power MD (vice president lending). I, Dr. ALMA ROSA CORDON have personally reviewed and interpreted this examination/study. This report was electronically signed by ALMA ROSA CORDON on 10/27/2019 12:49 PM . Rio Bhakta MD DIAGNOSTIC IMAGING O RDERABLES * CARDIAC RHYTHM STRIP ORDER (09/21/2019 3:43 PM OBSTETRICS SPECIALIST) Narrative 09/21/2019 3:43 PM OBSTETRICS SPECIALIST Ordered by an unspecified provider. Scanned Document CARDIAC SERVICES ORD ERABLES * GROSS + MICRO EXAM (STL) (09/19/2019 8:49 AM OBSTETRICS SPECIALIST) Case Report Surgical Pathology Report ? Case: [id number] ? Authorizing Provider: ??Albert Huddleston MD ?Collected: ? 09/19/2019 08:49 AM ? Ordering Location: ? [facility] ? Received: ?09/19/2019 10:46 AM ? Pathologist: ? Mujeeb, Imaad Bin, MD ? Specimens: ?? A) - Fossa, Left Ovarian Fossa ? B) - Tissue, Left Parauterine ? C) - Ligament, Right Uterosacral Ligament ? D) - Ligament, Left Uterosacral Ligament ? E) - Cyst, Left Peritubal Cyst ? F) - Appendix ? 09/21/2019 2:14 PM OBSTETRICS SPECIALIST [facility] Final Diagnosis A. Left ovarian fossa, biopsy: -- Mature fibroadipose tissue with focal mesothelial lining. -- No diagnostic endometriosis identified. B. Left parauterine tissue, biopsy: -- Mature fibroadipose tissue with focal mesothelial lining. -- No diagnostic endometriosis identified. C. Right uterosacral ligament, biopsy: -- Mature fibroadipose tissue. -- No diagnostic endometriosis identified. D. Left uterosacral ligament, biopsy: -- Mature fibroadipose tissue with focal mesothelial lining. -- No diagnostic endometriosis identified. E. Left peritubal cyst, excision: -- Benign cystic Walthard nests. F. Appendix, appendectomy: -- Benign appendiceal tissue with no acute inflammation identified in the appendiceal wall. 09/21/2019 2:[address] [facility] Clinical History 19-year-old female who underwent diagnostic laparoscopy with excision of endometriosis with CO2 laser. 09/21/2019 2:[address] [facility] Gross Description Containers A-F are labeled Josephine Alejandre. A. Received in formalin, labeled with the patient's identification and left ovarian fossa is an irregular fragment of perez-white tissue measuring 0.5 cm in greatest dimension. The specimen is entirely submitted in cassette A1. B. Received in formalin, labeled with the patient's identification and left parauterine tissue is an irregular piece of perez-white membranous tissue measuring 1.5 cm in greatest dimension. The specimen is bisected and entirely submitted in cassette B1. C. Received in formalin, labeled with the patient's identification and right uterosacral ligament tissue is an irregular piece of perez-pink, malleable tissue measuring 0.9 cm in greatest dimension. The specimen is bisected and entirely submitted in cassette C1. D. Received in formalin, labeled with the patient's identification and left uterosacral ligament tissue is an irregular piece of perez-white, malleable tissue measuring 1 cm in greatest dimension. The specimen is bisected and entirely submitted in cassette D1. E. Received in formalin, labeled with the patient's identification and left paratubal cyst is an irregular fragment of perez-white tissue measuring 0.3 cm in greatest dimension. The specimen is entirely submitted in cassette E1. F. Received in formalin, labeled with the patient's identification and appendix is an unknown, perez-white, vermiform appendix measuring 9 x 0.9 cm. The resection margin (inked green), bisected tip, and mid appendix are submitted in cassette F1. SW/ns 09/21/2019 2:[address] [facility] Microscopic Description Microscopic findings confirm the final diagnosis. Deeper sections were obtained for specimens A, B, C and D. 09/21/2019 2:[address] [facility] Disclaimer All histochemical and/or immunohistochemical results are interpreted with controls that demonstrate appropriate staining reactions before reporting results. Note on use of immunocytochemistry reagents: This test was developed and its performance characteristic determined by [facility], Department of Laboratory Medicine. It has not been cleared or approved by the U.S. Food and Drug Administration (FDA). The FDA has determined that such clearance or approval is not necessary. The test is used for clinical purpose. It should not be regarded as investigational or for research. This laboratory is certified to perform high complexity testing. 09/21/2019 2:[address] [facility] Embedded Images 09/21/2019 2:[address] [facility] Pathology/Cytology MISCELLANEOUS SAMPLES / Unknown 09/19/2019 8:49 AM OBSTETRICS SPECIALIST 09/19/2019 10:46 AM OBSTETRICS SPECIALIST Comment:Pre-op diagnosis: Diagnosis unknown [R69] Miscellaneous samples (specimen) TISSUE SPECIMEN / Unknown 09/19/2019 8:50 AM OBSTETRICS SPECIALIST 09/19/2019 10:46 AM OBSTETRICS SPECIALIST Comment:Pre-op diagnosis: Diagnosis unknown [R69] Miscellaneous samples (specimen) ENTIRE LIGAMENT / Unknown 09/19/2019 8:56 AM OBSTETRICS SPECIALIST 09/19/2019 10:46 AM OBSTETRICS SPECIALIST Comment:Pre-op diagnosis: Diagnosis unknown [R69] Miscellaneous samples (specimen) ENTIRE LIGAMENT / Unknown 09/19/2019 8:57 AM OBSTETRICS SPECIALIST 09/19/2019 10:46 AM OBSTETRICS SPECIALIST Comment:Pre-op diagnosis: Diagnosis unknown [R69] Miscellaneous samples (specimen) CYST TISSUE / Unknown 09/19/2019 8:59 AM OBSTETRICS SPECIALIST 09/19/2019 10:46 AM OBSTETRICS SPECIALIST Comment:Pre-op diagnosis: Diagnosis unknown [R69] Miscellaneous samples (specimen) ENTIRE APPENDIX / Unknown 09/19/2019 9:09 AM OBSTETRICS SPECIALIST 09/19/2019 10:46 AM OBSTETRICS SPECIALIST Comment:Pre-op diagnosis: Diagnosis unknown [R69] Albert Huddleston MD LAB - PATHOLOGY/DEBORAH STEVEN ORDERABLES [facility] [address] [place] [address] * ETT LINE PERFORMABLE (09/19/2019 8:15 AM OBSTETRICS SPECIALIST) Narrative Francisco Alejandra APRN-CRNA - 09/19/2019 8:15 AM OBSTETRICS SPECIALIST Francisco Alejandar APRN-CRNA ? 09/19/2019 ??8:15 AM Endotracheal Tube Placement: ? Patient Location: OR. Intubation Event Date/Time: ??09/19/2019 8:09 AM Procedure: intubation (35568). Procedure Section: ?? Sedation: under general anesthesia. Indications for Airway Management: ??anesthesia Induction: standard IV Patient Position: ??supine Mask Ventilation: easy. Blade Type: Mary Blade Size: 4 Laryngoscopy View: grade 1 (full cords) Intubation Adjuncts: stylet Tube: endotracheal tube Placement: oral Tube type: cuff - inflated Tube Size (MM): 7 Depth of Insertion (CM): 22 Measured From: teeth Cuff volume (mL): ??4 Cuff Inflated With: air Number of Attempts: 1. Placement Verified By: direct visualization, chest auscultation and CO2 monitor Tube secured with: ??adhesive tape. Difficult Airway? ??No. Procedure Start Time: 09/19/2019 8:09 AM. Procedure End Time: 09/19/2019 8:10 AM. Procedure Total Time: 1 ??minutes. Staff Section ?? Anesthesia Provider: Francisco Alejandra APRN-CRNA, Performed the procedure Sergio Quezada MD GENERAL ANESTHESIA O RDERABLES * HCG URINE QUAL POCT NOTIFICATION (09/19/2019 8:00 AM OBSTETRICS SPECIALIST) Comment Notification Label Only - See Separate Report 09/19/2019 8:00 AM OBSTETRICS SPECIALIST [facility] Urine URINE / Unknown 0 6:40 AM OBSTETRICS SPECIALIST Sergio Quezada MD LAB - URINALYSIS ORD ERABLES Performing Organization Address City/[facility]/ZIP Co de Phone Number [facility] [address] [place] [address] * BLOOD TYPE VERIFICATION (09/19/2019 7:01 AM OBSTETRICS SPECIALIST) ABO O 09/19/2019 7:23 AM OBSTETRICS SPECIALIST [facility] BLOOD BANK LAB Rh Type Positive 09/19/2019 7:23 AM OBSTETRICS SPECIALIST [facility] Blood Bank BLOOD SPECIMEN / Unknown Venipuncture / Unknown 09/19/2019 7:01 AM OBSTETRICS SPECIALIST 09/19/2019 7:05 AM OBSTETRICS SPECIALIST Sergio Quezada MD LAB - BLOOD BANK ORD ERABLES Performing Organization Address [facility] Co de Phone Number [facility] B[facility]OD [facility] [address] [place] [id number] [place] [address] * HCG URINE QUALITATIVE - POCT (IP) INTERFACED (09/19/2019 6:50 AM OBSTETRICS SPECIALIST) HCG Qual Urine Negative Negative 09/19/2019 6:52 AM OBSTETRICS SPECIALIST [facility] Urine URINE / Unknown 09/19/2019 6 :50 AM OBSTETRICS SPECIALIST 09/19/2019 6:52 AM OBSTETRICS SPECIALIST Albert Huddleston MD LAB - POINT OF CAR E ORDERABLES Performing Organization Address [facility] Co de Phone Number [facility] [address] [place] [address] * IMAGING RADIOLOGY XRAY RESULTS ORDER (05/30/2019 6:31 AM CDT) Only the most recent of2 resultswithin the time period is included. Anatomical Region Laterality Modality Other Narrative 05/30/2019 6:31 AM CDT Ordered by an unspecified provider. Scanned Document IMAGING * US TRANSVAGINAL NON OB (05/27/2019 4:29 PM CDT) Anatomical Region Laterality Modality Abdomen Ultrasound Narrative 05/27/2019 4:29 PM CDT Rasheeda Hamilton ? 05/27/2019 ??4:29 PM Documentation in digisonics. Albert Huddleston MD ORDERABLES * (ABNORMAL) CULTURE URINE (04/06/2019 10:21 AM CDT) Culture (A) [facility] Comment: ??CULTURE, URINE, ROUTINE ?MICRO NUMBER: ?[id number] ??TEST STATUS: ? FINAL ??SPECIMEN SOURCE: ?? URINE, CLEAN CATCH ??SPECIMEN QUALITY: ??ADEQUATE ??RESULT: ?50,000-100,000 CFU/mL of Escherichia coli ? 50,000-100,000 CFU/mL of ? Coagulase negative staphylococcus, not S. ? saprophyticus ? May represent colonizers from external and ? internal genitalia. No further testing (including ? susceptibility) will be performed. ?E.coli ?INT ?? ABEBA ?? AMOX/CLAVULANATE ? R ? >=32 ?? AMPICILLIN ? R ? >=32 ?? AMP/SULBACTAM ?R ? >=32 ?? CEFAZOLIN ?R ? >=64 1 ?? CEFEPIME ? S ? <=1 ?? CEFTRIAXONE ?S ? <=1 ?? CIPROFLOXACIN ?R ? >=4 ?? ERTAPENEM ?S ? <=0.5 ?? GENTAMICIN ? S ? <=1 ?? IMIPENEM ? S ? <=0.25 ?? LEVOFLOXACIN ? R ? >=8 ?? NITROFURANTOIN ? S ? <=16 ?? PIP/TAZOBACTAM ? I ? 64 ?? TOBRAMYCIN ? S ? <=1 ?? TRIMETHOPRIM/SULFA ? R ? >=320 S=Susceptible ??I=Intermediate ??R=Resistant ??* = Not Tested NR = Not Reported ??NN = See Therapy Comments THERAPY COMMENTS ?Note 1: ?For uncomplicated UTI caused by E. coli, ?K. pneumoniae or P. mirabilis: Cefazolin is ?susceptible if ABEBA <32 mcg/mL and predicts ?susceptible to the oral agents cefaclor, cefdinir, ?cefpodoxime, cefprozil, cefuroxime, cephalexin ?and loracarbef. REPORT COMMENT: FASTING:UNKNOWN Test Performed at: [facility] ??[id number] MICHAEL MENDEZ MD Urine URINE SPECIMEN OBTAINED BY CLEAN CATCH PROCEDURE / Unknown 04/06/2019 10:21 AM CDT 04/06/2019 11:34 PM CDT Albert Huddleston MD LAB - MICROBIOLOGY ORDERABLES Performing Organization Address [facility] de Phone Number [facility] [address] [place] [address] * (ABNORMAL) CHLAMYDIA + GC + TRICH DNA AMPL (04/06/2019 10:20 AM CDT) Pathologist [facility] Chlamydia trachomatis RNA DETECTED(A) NOT DETECTED [facility] Comment: A positive CT or NG Nucleic Acid Amplification Test (NAAT) result should be interpreted in conjunction with other laboratory and clinical data available to the clinician. If clinically indicated, further testing can be performed on the same sample using an alternate molecular target. To order alternate target test use 43921 (C. trachomatis) or 42517 (N. gonorrhoeae). GC RNA NOT DETECTED NOT DETECTED [facility] Trichomonas vaginalis RNA Qualitative NOT DETECTED NOT DETECTED [facility] Comment: This test was performed using the APTIMA(R) Trichomonas vaginalis assay (GenPeerioProbe(R)). For more information on this test, go to: http://education.[employer]/faq/Trichomonastma Test Performed at: [facility] ??[id number] KARMEN RODRIGUEZ DO,MPH Please Note [facility] Comment: This test was performed using the APTIMA COMBO2 Assay ([employer] The analytical performance characteristics of this assay, when used to test SurePath specimens have been determined by [employer]. ?? Microbiology ENTIRE ENDOCERVIX / Unknown 04/06/2019 10:20 AM CDT 04/06/2019 11:34 PM CDT Albert Huddleston MD LAB - MICROBIOLOGY ORDERABLES Performing Organization Address [facility] Co de Phone Number [facility] [address] [place] [address] * LAB RESULTS ORDER (02/02/2016) Only the most recent of3 resultswithin the time period is included. Moody Cotter MD LAB - THERAPEUTIC DR ALLEN MONITORING ORDERABLES * POLYSOMNOGRAM W/MULTIPLE SLEEP LATENCY TEST (09/12/2015) Pathologist [facility] Linked Results See Linked Results SLEEP CENTER 09/12/2015 [place] Kevyn Cotter MD SLEEP CENTER ORDERAB LES [facility] * CARDIAC EKG ORDER (07/12/2015 5:06 PM OBSTETRICS SPECIALIST) Narrative 07/12/2015 5:06 PM OBSTETRICS SPECIALIST Ordered by an unspecified provider. Scanned Document CARDIAC SERVICES ORD ERABLES Care Teams Physics Faculty Member Relationship Specialty Start Date End Date Laura Reid MD PCP - General Pediatrics 10/28/19 Laura Reid MD Pediatrics 10/28/19
--- OUTSIDE RECORDS SUMMARY | 2024-08-30 02:57 | XMS_ITS | Encounter Summary ---
Author Organization [facility] Address [address] [place] [address] Care Team Providers Care Tool Procurement Coordinator Name Role Phone Laura Reid MD Primary Care Provider [phone] Laura Reid MD Unavailable [phone] Reason for Visit * Reason Onset Date Comments Results 08/22/2020 Encounter Details Date Type Department Care Team (Late st Contact Info) Description 08/22/2020 Telephone [facility] [address] [place], [place] [id number] Albert Huddleston MD [address] [place] [address] Results Social History Tobacco Use Types Packs/Day Years [...] on file documented as of this encounter Functional Status Functional Status Response [...] No 11/01/2019 documented as of this encounter Miscellaneous Notes * Telephone Encounter - Mila Mckinney - 08/22/2020 4:21 PM CST patient is calling for results from surgery back in the spring with call back [phone] STRATE JUDGE documented in this encounter Plan of Treatment Not on file documented as of this encounter Visit Diagnoses Not on filedocumented in this encounter Care Teams Tool Procurement Coordinator Relationship Specialty Start Date End Date Laura Reid MD PCP - General Pediatrics 10/28/19 Laura Reid MD Pediatrics 10/28/19 documented as of this encounter
--- OUTSIDE RECORDS SUMMARY | 2024-08-30 02:57 | XMS_ITS | Encounter Summary ---
Author Organization [facility] Address [address] [place] [address] Care Team Providers Care Machine Silver Stripper Name Role Phone Laura Reid MD Primary Care Provider [phone] Laura Reid MD Unavailable [phone] Reason for Visit * Reason Onset Date Comments Results 03/19/2020 Encounter Details Date Type Department Care Team (Late st Contact Info) Description 03/19/2020 Telephone [facility] - [facility] P[employer]IC [address] [place] [address] [address] [place] [address] Albert Huddleston MD [address] [place] [id number] Results Social History Tobacco Use Types [...] encounter Miscellaneous Notes * Telephone Encounter - Taylor Bella RN - 03/19/2020 11:30 AM CDT RN returned call to patient. Pt reports she had surgery back in August and never heard back on theresults from her surgery. She reports she missed her post-op appointment due to being hospitalized for other reasons. RN to forward message on to MD to advise on test results and if pt should come innow for POS. * Telephone Encounter - Lavinia Thomas - 03/19/2020 11:10 AM CDT PT would like lab results. [phone] documented in this encounter Plan of Treatment Not on file documented as of this encounter Visit Diagnoses Not on filedocumented in this encounter Care Teams Machine Silver Stripper Relationship Specialty Start Date End Date Laura Reid MD PCP - General Pediatrics 10/28/19 Laura Reid MD Pediatrics 10/28/19 documented as of this encounter
--- OUTSIDE RECORDS SUMMARY | 2024-08-30 02:57 | XMS_ITS | Referral Summary ---
Author Organization [facility] Address [address] [place] [address] Care Team Providers Care Help Desk Internship Name Role Phone Laura Reid MD Primary Care Provider [phone] Laura Reid MD Unavailable [phone] Source Comments [facility],non-owned Affiliates and Associated Physician Practices is amultiple site organization consisting of ambulatory clinics and hospital sitesin [place], [place], [place] and [place]. This disclosure is being madepursuant to the Care Everywhere program and may not contain all information available regarding this patient. Last updated 18.[facility] Allergies Active Allergy Reactions Criticality Noted Date [...] Oxygen Concentration 30% 10/29/2019 4 :00 PM PUMP STITCHER Weight 59.4 kg (131 lb) 11/24/2019 11:39 AM CDT Height 157.5 cm (5' 2 ) 11/24/2019 11:39 AM CDT Body Mass Index 23.96 11/24/2019 11:39 AM CDT Functional Status Functional Status Response Date of [...] person have difficulty concentrating/remembering/making decisions? No 11/01/2019 Plan of Treatment Not on file Medical Devices Implanted Type Area Detailer Device Identifier Shelf Expiration Date Model / Serial / Lot Patch Srg 4x2in Slnt [employer] Fbrn - [id number] Implanted:Qty: 1 on 10/27/2019 by Sam Landry MD at [facility] N/A: Abdomen [employer] 11/18/2020 [id number] / [id number] / Advance Directives * Full Code (Latest Code Status on File) Date Activated Date Inactivated Comments 10/27/2019 6:13 AM 11/09/2019 1:32 PM * Full Code Date Activated Date Inactivated Comments 10/27/2019 6:13 AM 10/27/2019 6:13 AM Care Teams Help Desk Internship Relationship Specialty Start Date End Date Laura Reid MD PCP - General Pediatrics 10/28/19 Laura Reid MD Pediatrics 10/28/19
--- OUTSIDE RECORDS SUMMARY | 2024-08-30 02:58 | XMS_ITS | Encounter Summary ---
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 your questions so you remember to ask them during your visits. ?? Copyright [employer] 2019 Information is for End User's use only and may not be sold, redistributed or otherwise used for commercial purposes. All illustrations and images included in CareNotes?? are the copyrighted property of [employer]. or [employer] The above information is an nurse aide only. It is not intended as medical advice for individual conditions or treatments. Talk to your doctor, nurse or pharmacist before following any medical regimen to see if it is safe and effective for you. Patient Education How to Use an Incentive Spirometer WHAT YOU NEED TO KNOW: An incentive spirometer is a device that measures how deeply you can inhale (breathe in). It helps you take slow, deep breaths to expand and fill your lungs with air. This helps prevent lung problems, such as pneumonia. The incentive spirometer is made up of a breathing tube, an air chamber, and anindicator. The breathing tube is connected to the air chamber and has a mouthpiece at the end. The indicator is found inside the device. DISCHARGE INSTRUCTIONS: Reasons to use an incentive spirometer: An incentive spirometer is most commonly used after surgery. People who are at increased risk of airway or breathing problems may also use one. These include people who smoke or have lung disease. This may also include people who are not active or cannot movewell. How to use an incentive spirometer: Sit up as straight as possible. Do not bend your head forward or backward. Hold the incentive spirometer in an upright position. Place the target pointer to the level that you need to reach or that your healthcare provider has suggested. Exhale (breathe out) normally and then do the following: ?? Put the mouthpiece in your mouth and close your lips tightly around it. Do not block the mouthpiece with your tongue. ?? Inhale slowly and deeply through the mouthpiece to raise the indicator. Try to make the indicator rise up to the level of the goal marker. ?? When you cannot inhale any longer, remove the mouthpiece and hold your breath for at least 3 seconds. ?? Exhale normally. ?? Repeat these steps 10 to 12 times every hour when you are awake, or as often as directed. ?? Clean the mouthpiece with soap and water after each use. Do not use a disposable mouthpiece for longer than 24 hours. ?? Keep a log of the highest level you are able to reach each time. This will help healthcare providers see if your lung function improves. Follow up with your healthcare provider as directed: Write down your questions so you remember to ask them during your visits. Contact your healthcare provider if: ?? You feel dizzy or lightheaded. ?? You have a wound that is painful every time you breathe deeply. ?? You have questions or concerns about how to use your IS. Return to the emergency department if: ?? You have chest pain or shortness of breath. ?? You feel faint. ?? Copyright [employer] 2019 Information is for End User's use only and may not be sold, redistributed or otherwise used for commercial purposes. All illustrations and images included in CareNotes?? are the copyrighted property of [employer] or [employer] The above information is an nurse aide only. It is not intended as medical advice for individual conditions or treatments. Talk to your doctor, nurse or pharmacist before following any medical regimen to see if it is safe and effective for you. Patient Education Post Traumatic Stress Disorder WHAT YOU NEED TO KNOW: PTSD is a condition that may occur after you have experienced a traumatic situation or event. This event may have caused you to feel intense fear, pain, or sorrow. You may think you are going to get hurt or . You may also continue to feel helpless after the event. These feelings affect your daily activities and relationships. DISCHARGE INSTRUCTIONS: Call your local emergency number (911 in the ) if: ?? You think about hurting or killing yourself or someone else. Call your doctor if: ?? You cannot sleep or are sleeping too much. ?? You have questions or concerns about your condition or care. Treatment may include any of the following: ?? Medicines may be given to decrease anxiety, depression, or help you stay calm and relaxed. ?? Therapy may be done in a group or one on one with a therapist. Family and friends are also an important part of recovery. ? Cognitive behavior therapy helps you learn to face the feared object or situation slowly and carefully. You will also learn to control your mental and physical reactions of fear. ?? During cognitive processing therapy , a therapist helps you identify which thoughts about the trauma cause anxiety. He or she will help you see the event differently. This may help you learn to change your thoughts and decrease your anxiety. ?? During prolonged exposure , a therapist helps you work through thoughts, feelings, and memories about the trauma. A therapist helps you learn how to handle your thoughts and feelings. This can decrease your fear or anxiety. ? Talk therapy may be one or more meetings with a therapist to have crisis counseling. You may havethis right after a traumatic event to prevent or decrease further emotional problems. ? Relaxation therapy teaches you how to feel less physical and emotional stress. Stress may cause pain, lead to illness, and slow healing. Deep breathing, muscle relaxation, and music are some forms of relaxation therapy. ? Eye movement desensitization and reprocessing (EMDR) is a type of exposure therapy. Healthcare providers help you make your eyes move back and forth while you imagine the trauma. For support and more information: ?? [facility] Post Traumatic Stress Disorder Phone: [phone] Web Address: http://www.paptsd.[place].gov/ ?? National [place] [employer] ([facility]), Public Information & Communication Branch [address] [place] [address], [address], [facility] [address] [place] [address] Phone: Phone: Web Address: http://www.[facility].nih.gov/ Follow up with your doctor as directed: Write down your questions so you remember to ask them during your visits. ?? Copyright [employer] 2018 Information is for End User's use only and may not be sold, redistributed or otherwise used for commercial purposes. All illustrations and images included in CareNotes?? are the copyrighted property of [employer] or [employer] The above information is an nurse aide only. It is not intended as medical advice for individual conditions or treatments. Talk to your doctor, nurse or pharmacist before following any medical regimen to see if it is safe and effective for you. Signed: Lolis Layne APRN-BIANCA 11/09/2019 Associated attestation - Antonio Carolina MD - 11/09/2019 4:04 PM CDT This is a documentation only encounter. documented in this encounter Discharge Instructions * Discharge Instructions* Kofi Collado, FAMILY RESOURCE COORDINATOR-ADJUNCT LATIN PROFESSOR - 11/09/2019 12:00 PM CDT Images from the original note were not included. Patient Education Bowel Resection [facility]: Current specification manual for national hospital quality measures. [facility]. [place], [place]. 2009. Available from URL: http://www.jointcommission.org/Performa nceMeasurement/PerformanceMeasurement/Current+NHQM+Manual.htm. As accessed 2010-03-12. CAMILA Lopez, Toro, ,TH, et al: A consensus document on bowel preparation before colonoscopy: prepared by a task force from the [place] Society of Colon and Rectal Surgeons (ASCRS), the [place] Society for Gastrointestinal Endoscopy (ASGE), and the Society of [place] Gastrointestinal and Endoscopic Surgeons (SAGES). Gastrointest Endosc, 2006; 63(7):894-909. Remi Arevalo, DuncanN, & Sherrie,G: Randomized clinical trial of bowel preparation with a single phosphate enema or polyethylene glycol before elective colorectal surgery. Br J Surg, 2006; 93(4):427-433. Sam,SJ, ZuleikaR, & Mary,MS: Colorectal resection in patients with ovarian and primary peritoneal carcinoma. Am J Obstet Gynecol, 2006; 195(2):585-589. Bean,E, Maddie,F, Julieta,A, et al: Mild hypercapnia increases subcutaneous and colonic oxygen tension in patients given 80% inspired oxygen during abdominal surgery. Anesthesiology, 2006; 104(5):944-949. Jaiden,NM, VitoML, SamiraDS, et al: Small bowel obstruction: a population- based appraisal. J Am Stef Surg, 2006; 203(2):170-176. MonikaCP, DaoAJ, Jamie,ER, et al: Postoperative upper and lower gastrointestinal recoveryand gastrointestinal morbidity in patients undergoing bowel resection: pooled analysis of placebo data from 3 randomized controlled trials. Am J Surg, 2006; 191(3):315-319. Solo Vera & AMARA Escoto: Surgical treatment of colon cancer. Surg Oncol Clin N Am, 2006; 15(1):109-127. Efren Dupree, Mayela Sidhu, Priyank Mcclendon, et al: Intraoperative ultrasonography: a tool for localizing smallcolonic polyps. Int J Colorectal Dis, 2005; 20(6):502-506. YOEL Hickey, NOEMI Vela, & JOE Esparza,Jr: Influence of time on risk of bowel resection in complete small bowel obstruction. J Am Stef Surg, 2005; 201(6):847-854. TASH Campbell, Priyank Byers, JEANNE Leal, et al: Mechanical bowel preparation for elective colorectal surgery. [place] Database Syst Rev, 2005; 2005(1):PP720605--. Danish Gary Delaney, CP, KATHARINA Dc, et al: Laparoscopic vs open total colectomy: a case-matched comparative study. Surg Endosc, 2005; 19(4):531-535. CECE Frank, Danish Gary, KATHARINA Dc, et al: Is laparoscopic colectomy applicable to patients with body mass index >30? A case-matched comparative study with open colectomy. Dis Colon Rectum, 2005; 48(5):975-981. NIDIA Stevenson, SHABANA Thornton, ST Abner, et al: Wound infection after elective colorectal resection. Zoila Surg, 2004; 239(5):599-605. CHARLEY Ontiveros & FAYE Rasheed: Bowel preparation for gastrointestinal procedures. Curr Gastroenterol Rep, 2004; 6(5):395-401. ?? Copyright [employer] 2019 Information is for End User's use only and may not be sold, redistributed or otherwise used for commercial purposes. All illustrations and images included in CareNotes?? are the copyrighted property of [employer] or [employer] The above information is an nurse aide only. It is not intended as medical advice for individual conditions or treatments. Talk to your doctor, nurse or pharmacist before following any medical regimen to see if it is safe and effective for you. Patient Education Perforated Bowel WHAT YOU NEED TO KNOW: A perforated bowel happens when a medical condition, such as diverticulitis, causes a hole or tear in your bowel. An injury or blockage may also perforate your bowel. Bowel contents can leak into your abdomen through the hole. This may cause a life-threatening infection. WHILE YOU ARE HERE: Informed consent is a legal document that explains the tests, treatments, or procedures that you may need. Informed consent means you understand what will be done and can make decisions about what you want. You give your permission when you sign the consent form. You can have someone sign this formfor you if you are not able to sign it. You have the right to understand your medical care in words you know. Before you sign the consent form, understand the risks and benefits of what will be done.Make sure all your questions are answered. IV fluids and nutrition: You will not be able to eat or drink. Fluids and nutrition will be given through your IV. Medicines: You will be given antibiotics to treat or prevent a bacterial infection. Tests: X-rays may be done of your stomach and bowels. You may be given a chalky liquid to drink before the pictures are taken. This helps your stomach and bowels show up better on the x-rays. Treatment: ?? Bowel rest may be used to allow your bowel to heal. You cannot eat or drink during bowel rest, but you will receive nutrition and liquids through an IV. A nasogastric (NG) tube will be placed in your nose and down to your stomach. This tube is used to remove liquids from your stomach to keep your digestive system empty. ?? Surgery may be used to repair the perforation, or remove a diseased part of your bowel. Your healthcare provider may use a scope or open abdominal surgery to repair your bowel. RISKS: A perforated bowel could happen again, even with treatment. A bowel perforation could become life-threatening with or without treatment. CARE AGREEMENT: You have the right to help plan your care. Learn about your health condition and how it may be treated. Discuss treatment options with your healthcare providers to decide what care you want to receive. You always have the right to refuse treatment. ?? Copyright [employer] 2019 Information is for End User's use only and may not be sold, redistributed or otherwise used for commercial purposes. All illustrations and images included in CareNotes?? are the copyrighted property of [employer], [employer]. or [employer] The above information is an nurse aide only. It is not intended as medical advice for individual conditions or treatments. Talk to your doctor, nurse or pharmacist before following any medical regimen to see if it is safe and effective for you. Patient Education Exploratory Laparotomy WHAT YOU NEED TO KNOW: Exploratory laparotomy is surgery to look for causes of pain, infection, disease, or scar tissue inside your abdomen. An exploratory laparotomy may help diagnose a medical problem. A problem may be fixed during surgery. DISCHARGE INSTRUCTIONS: Call your local emergency number (911 in the ) if: ?? You suddenly feel lightheaded and short of breath. ?? You have chest pain when you take a deep breath or cough. ?? You cough up blood. Seek care immediately if: ?? Your incision comes apart. ?? Blood soaks through your bandage. ?? Your arm or leg feels warm, tender, and painful. It may look swollen and red. Call your doctor or surgeon if: ?? You have a fever. ?? Your incision is swollen, red, or has pus coming from it. ?? You have constipation or diarrhea. ?? You are vomiting. ?? You have chills, a cough, or feel weak and achy. ?? You have questions or concerns about your condition or care. Medicines: You may need any of the following: ?? Antibiotics help fight or prevent an infection caused by bacteria. ?? Prescription pain medicine may be given. Ask your healthcare provider how to take this medicine safely. Some prescription pain medicines contain acetaminophen. Do not take other medicines that contain acetaminophen without talking to your healthcare provider. Too much acetaminophen may cause liver damage. Prescription pain medicine may cause constipation. Ask your healthcare provider how to prevent or treat constipation. ?? Take your medicine as directed. Contact your healthcare provider if you think your medicine is not helping or if you have side effects. Tell him or her if you are allergic to any medicine. Keep a list of the medicines, vitamins, and herbs you take. Include the amounts, and when and why you take them. Bring the list or the pill bottles to follow-up visits. Carry your medicine list with you in case of an emergency. Care for the surgery area: ?? Keep the area covered. You may need to keep the bandage on for 1 to 2 days or until your follow-up visit. After your follow-up visit, you may need to change your bandage 1 to 2 times a day. Ask when it is okay to take a shower or bath. ?? Wash your hands before you care for the area. Use soap and warm water to wash your hands. Handwashing helps prevent an infection. ?? Remove your bandage gently. If the bandage sticks to the surgery area, use warm water on the bandage and lift it off slowly. Lift the edges toward the center of the area. Carefully wash around thearea with soap and water. Dry the area and put on new, clean bandages as directed. Change your bandages when they get wet or dirty. Check the area for signs of infection, such as swelling, redness, or pus. Rest as needed: You may feel like resting more after your surgery. Slowly start to do more each day. Follow up with your doctor or surgeon as directed: You may need to return to have your stitches or bandage removed. Write down your questions so you remember to ask them during your visits. ?? Copyright [employer] 2019 Information is for End User's use only and may not be sold, redistributed or otherwise used for commercial purposes. All illustrations and images included in CareNotes?? are the copyrighted property of [employer] or [employer] The above information is an nurse aide only. It is not intended as medical advice for individual conditions or treatments. Talk to your doctor, nurse or pharmacist before following any medical regimen to see if it is safe and effective for you. Patient Education Rib Fracture WHAT YOU NEED TO KNOW: A rib fracture is a crack or break in a rib bone. Rib fractures usually heal within 6 weeks. You should be able to return to normal activities before that time. Do not wrap anything around your body to try to splint your ribs. This can prevent you from taking deep breaths and increases your risk for pneumonia. DISCHARGE INSTRUCTIONS: Call 911 for any of the following: ?? You have trouble breathing. ?? You have new or increased pain. Return to the emergency department if: ?? Your pain does not get better, even after treatment. ?? You have a fever or a cough. Contact your healthcare provider if: ?? You have questions or concerns about your condition or care. Medicines: ?? NSAIDs help decrease swelling and pain. NSAIDs are available without a doctor's order. Ask your healthcare provider which medicine is right for you. Ask how much to take and when to take it. Take as directed. NSAIDs can cause stomach bleeding and kidney problems if not taken correctly. ?? Prescription pain medicine may be given. Ask your healthcare provider how to take this medicine safely. Some prescription pain medicines contain acetaminophen. Do not take other medicines that contain acetaminophen without talking to your healthcare provider. Too much acetaminophen may cause liver damage. Prescription pain medicine may cause constipation. Ask your healthcare provider how to prevent or treat constipation. ?? Take your medicine as directed. Contact your healthcare provider if you think your medicine is not helping or if you have side effects. Tell him or her if you are allergic to any medicine. Keep a list of the medicines, vitamins, and herbs you take. Include the amounts, and when and why you take them. Bring the list or the pill bottles to follow-up visits. Carry your medicine list with you in case of an emergency. Follow up with your healthcare provider as directed: Write down your questions so you remember to ask them during your visits. Deep breathing: Deep breathing will decrease your risk for pneumonia. Hug a pillow on the injured side while doing this exercise, to decrease pain. Take a deep breath and hold it for as long as possible. You should let the air out and then cough strongly. Deep breaths help open your airway. You maybe given an incentive spirometer to help take deep breaths. Put the plastic piece in your mouth. Take a slow, deep breath. You should then let the air out and cough. Repeat these steps 10 times everyhour. Rest: Rest and limit activity to decrease swelling and pain, and allow your injury to heal. Avoid activities that may cause more pain or damage to your ribs such as, pulling, pushing, and lifting. Asyour pain decreases, begin movements slowly. Take short walks between rest periods. Ice: Apply ice on the fractured area for 15 to 20 minutes every hour or as directed. Use an ice pack or put crushed ice in a plastic bag. Cover it with a towel. Ice helps prevent tissue damage and decreases swelling and pain. ?? Copyright [employer] 2019 Information is for End User's use only and may not be sold, redistributed or otherwise used for commercial purposes. All illustrations and images included in CareNotes?? are the copyrighted property of [employer] or [employer] The above information is an nurse aide only. It is not intended as medical advice for individual conditions or treatments. Talk to your doctor, nurse or pharmacist before following any medical regimen to see if it is safe and effective for you. Patient Education Acute Kidney Injury GRINDER OPERATOR SURFACE TOOL: Acute kidney injury (ADDY) is also called acute kidney failure, or acute renal failure. ADDY happens when your kidneys suddenly stop working correctly. Normally, the kidneys remove fluid, chemicals, and waste from your blood. These wastes are turned into urine by your kidneys. ADDY usually happens over hours or days. When you have ADDY, your kidneys do not remove the waste, chemicals, or extra fluid from your body. A normal amount of urine is not produced. ADDY is usually temporary, but it may become a chronic kidney condition. Causes of ADDY: ?? Decreased blood flow to the kidney, such as from hypercalcemia (high blood calcium level) or severe heart disease ?? A disease or condition that affects the kidneys, such as hypertension (high blood pressure) or diabetes ?? A blockage in the kidney or ureter, such as a kidney or bladder stone, enlarged prostate, or tumor Common symptoms include the following: You may not have any symptoms with early or mild ADDY. As AKIprogresses, you may have any of the following: ?? Decrease in the amount of urine or no urination ?? Swelling in your arms, legs, or feet ?? Weakness, drowsiness, or no appetite ?? Nausea, flank pain, muscle twitching or muscle cramps ?? Itchy skin, or your, breath or body smells like urine ?? Behavior changes, confusion, disorientation, or seizures Call 911 if: ?? You have sudden chest pain or trouble breathing. Seek care immediately if: ?? Your symptoms get worse. Contact your healthcare provider if: ?? Your symptoms return. ?? Your blood sugar or blood pressure level is not within the range your healthcare provider recommends. ?? You have questions or concerns about your condition or care. Treatment for ADDY depends upon the cause of your acute kidney injury and how severe it is. Usually,ADDY will be monitored in the hospital. If you have mild ADDY, you may be able to go home to recover.Your healthcare providers will treat the cause of your ADDY. You may need IV fluids if your ADDY was caused by little or no fluid in your body. You may need dialysis to remove waste and extra fluid from your body. Nutrition: Your healthcare provider may tell you to eat food low in sodium (salt), potassium, phosphorus, or protein. A dietitian can help you plan your meals. Drink liquids as directed: Your healthcare provider may recommend that you drink a certain amount of liquids. This will help your kidneys work better and decrease your risk for dehydration. Ask how much liquid to drink each day and which liquids are best for you. What you can do to manage and prevent ADDY: ?? Monitor and manage other health conditions. such as diabetes, high blood pressure, or heart disease. These conditions increase your risk for acute kidney injury. Take your medicines for these conditions as directed. Also, monitor your blood sugar and blood pressure levels as directed. Contact your healthcare provider if your levels are not in the range he or she says it should be. ?? Talk to your healthcare provider before you take zhet-zhv-jqyspqy-medicine. NSAIDs, stomach medicine, or laxatives may harm your kidneys and increase your risk for acute kidney injury. If it is okay to take the medicine, follow the directions on the package. Do not take more than directed. ?? Tell healthcare providers you have had acute kidney injury before you get contrast liquid for anx-ray or CT scan. Your healthcare provider may give you medicine to prevent kidney problems caused by the liquid. Follow up with your healthcare provider as directed: Write down your questions so you remember to ask them during your visits. ?? Copyright [employer] 2019 Information is for End User's use only and may not be sold, redistributed or otherwise used for commercial purposes. All illustrations and images included in CareNotes?? are the copyrighted property of [employer]. or [employer] The above information is an nurse aide only. It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 [facility] RBC 2.59(L) 3.90 - 5.00 10? 6 /uL 10/31/2019 11:50 PM [facility] Hemoglobin 7.8(L) 12.0 - 15.5 g/dL 10/31/2019 11:50 PM [facility] Hematocrit 23.0(L) 35.0 - 45.0 % 10/31/2019 11:50 PM [facility] MCV 88.8 81.0 - 97.0 fL 10/31/2019 11:50 PM [facility] MCH 30.1 28.0 - 34.0 pg 10/31/2019 11:50 PM [facility] MCHC 33.9 32.0 - 36.0 g/dL 10/31/2019 11:50 PM [facility] Platelet Count 263 150 - 400 10? 3 /uL 10/31/2019 11:50 PM [facility] RDW-SD 42.9 36.0 - 50.0 fL 10/31/2019 11:50 PM [facility] RDW-CV 13.2 11.2 - 14.8 % 10/31/2019 11:50 PM [facility] MPV 9.8 9.3 - 12.8 fL 10/31/2019 11:50 PM [facility] nRBC Absolute 0.00 0 10? 3 /uL 10/31/2019 11:50 PM [facility] nRBC Auto 0.0 0 /100 WBC 10/31/2019 11:50 PM [facility] Blood BLOOD SPECIMEN / Unknown Lab Venipuncture / Unknown 10/31/2019 11:44 PM CDT 10/31/2019 11:47 PM CDT Kapil Gonsalves MD LAB - HEMATOLOGY ORD ERABLES [address] [phone] * (ABNORMAL) BASIC METABOLIC PANEL (CALCIUM TOTAL) (10/31/2019 11:44 PM CDT) Pathologist [facility] BUN <2(L) 7 - 26 mg/dL 11/01/2019 12:04 AM [facility] Creatinine 0.7 0.6 - 1.2 mg/dL 11/01/2019 12:04 AM [facility] Sodium 138 136 - 145 mmol/L 11/01/2019 12:04 AM [facility] Potassium 3.2(L) 3.5 - 4.5 mmol/L 11/01/2019 12:04 AM [facility] Chloride 106 98 - 107 mmol/L 11/01/2019 12:04 AM [facility] CO2 23 22 - 29 mmol/L 11/01/2019 12:04 AM [facility] Glucose 116(H) 70 - 115 mg/dL 11/01/2019 12:04 AM [facility] Calcium 8.0(L) 8.4 - 10.2 mg/dL 11/01/2019 12:04 AM [facility] Anion Gap 12 8 - 18 11/01/2019 12:04 AM [facility] BUN/Creatinine Ratio <3(L) 7 - 23 11/01/2019 12:04 AM [facility] Osmolality Calculated <283 270 - 300 mOsm/kg 11/01/2019 12:04 AM [facility] eGFR >60 >60 mL/min/1.7 3 m2 11/01/2019 12:04 AM [facility] Blood BLOOD SPECIMEN / Unknown Lab Venipuncture / Unknown 10/31/2019 11:44 PM CDT 10/31/2019 11:47 PM CDT Kapil Gonsalves MD LAB - CHEMISTRY ANGELA JONES [address] [phone] * PT-INR [facility] (10/31/2019 11:44 PM CDT) Pathologist [facility] PT 13.8 12.1 - 14.8 Seconds 11/01/2019 12:00 AM CDT [facility] INR 1.1 See Comment 11/01/2019 12:00 AM CDT [facility] Comment:The suggested therap eutic range for standard coumadin (warfarin) therapy is an INR of 2.0-3.0. For high-risk patients (Mechanical Mitral Valve Prosthesis, etc.), the suggested prophylactic therapeutic range is an INR of 2.5-3.5. Blood BLOOD SPECIMEN / Unknown Lab Venipuncture / Unknown 10/31/2019 11:44 PM CDT 10/31/2019 11:47 PM CDT Nano Gacres MD LAB - COAGULATI ON ORDERABLES Performing Organization Address [facility] Co de Phone Number [address] [phone] * (ABNORMAL) PHOSPHORUS BLOOD (10/31/2019 11:44 PM CDT) Phosphorus 1.9(L) 2.3 - 4.7 mg/dL 11/01/2019 12:04 AM CDT [facility] Blood BLOOD SPECIMEN / Unknown Lab Venipuncture / Unknown 10/31/2019 11:44 PM CDT 10/31/2019 11:47 PM CDT Nano Garces MD LAB - CHEMISTRY ORDERABLES Performing Organization Address [facility] Co de Phone Number [address] [phone] * MAGNESIUM BLOOD (10/31/2019 11:44 PM CDT) Magnesium 2.3 1.6 - 2.6 mg/dL 11/01/2019 12:04 AM CDT [facility] Blood BLOOD SPECIMEN / Unknown Lab Venipuncture / Unknown 10/31/2019 11:44 PM CDT 10/31/2019 11:47 PM CDT Nano Garces MD LAB - CHEMISTRY ORDERABLES [facility] [address] [phone] * (ABNORMAL) CBC W/O DIFFERENTIAL (10/31/2019 6:44 AM CDT) WBC 10.9(H) 3.5 - 10.5 10? 3 /uL 10/31/2019 7:07 AM [facility] RBC 2.32(L) 3.90 - 5.00 10? 6 /uL 10/31/2019 7:07 AM [facility] Hemoglobin 7.1(L) 12.0 - 15.5 g/dL 10/31/2019 7:07 AM [facility] Hematocrit 20.8(L) 35.0 - 45.0 % 10/31/2019 7:07 AM [facility] MCV 89.7 81.0 - 97.0 fL 10/31/2019 7:07 AM [facility] MCH 30.6 28.0 - 34.0 pg 10/31/2019 7:07 AM [facility] MCHC 34.1 32.0 - 36.0 g/dL 10/31/2019 7:07 AM [facility] Platelet Count 199 150 - 400 10? 3 /uL 10/31/2019 7:07 AM [facility] RDW-SD 43.9 36.0 - 50.0 fL 10/31/2019 7:07 AM [facility] RDW-CV 13.4 11.2 - 14.8 % 10/31/2019 7:07 AM [facility] MPV 9.7 9.3 - 12.8 fL 10/31/2019 7:07 AM [facility] nRBC Absolute 0.00 0 10? 3 /uL 10/31/2019 7:07 AM [facility] nRBC Auto 0.0 0 /100 WBC 10/31/2019 7:07 AM [facility] Blood BLOOD SPECIMEN / Unknown Lab Venipuncture / Unknown 10/31/2019 6:44 AM CDT 10/31/2019 6:58 AM CDT Kapil Gonsalves MD LAB - HEMATOLOGY ORD ERABLES [facility] [address] [phone] * (ABNORMAL) BASIC METABOLIC PANEL (CALCIUM TOTAL) (10/31/2019 6:44 AM T) BUN 2(L) 7 - 26 mg/dL 10/31/2019 7:31 AM [facility] Creatinine 0.7 0.6 - 1.2 mg/dL 10/31/2019 7:31 AM [facility] Sodium 140 136 - 145 mmol/L 10/31/2019 7:31 AM [facility] Potassium 3.4(L) 3.5 - 4.5 mmol/L 10/31/2019 7:31 AM [facility] Chloride 107 98 - 107 mmol/L 10/31/2019 7:31 AM [facility] CO2 24 22 - 29 mmol/L 10/31/2019 7:31 AM [facility] Glucose 129(H) 70 - 115 mg/dL 10/31/2019 7:31 AM [facility] Calcium 8.1(L) 8.4 - 10.2 mg/dL 10/31/2019 7:31 AM [facility] Anion Gap 12 8 - 18 10/31/2019 7:31 AM [facility] BUN/Creatinine Ratio 3(L) 7 - 23 10/31/2019 7:31 AM [facility] Osmolality Calculated 288 270 - 300 mOsm/kg 10/31/2019 7:31 AM [facility] eGFR >60 >60 mL/min/1.7 3 m2 10/31/2019 7:31 AM [facility] Blood BLOOD SPECIMEN / Unknown Lab Venipuncture / Unknown 10/31/2019 6:44 AM CDT 10/31/2019 6:[address] [facility] Kapil Gonsalves MD LAB - CHEMISTRY ANGELA JONES [facility] [address] [place] [address] * PT-INR [facility] (10/31/2019 6:44 AM CDT) PT 14.2 12.1 - 14.8 Seconds 10/31/2019 7:19 AM CDT [facility] INR 1.1 See Comment 10/31/2019 7:19 AM CDT [facility] Comment:The suggested therap eutic range for standard coumadin (warfarin) therapy is an INR of 2.0-3.0. For high-risk patients (Mechanical Mitral Valve Prosthesis, etc.), the suggested prophylactic therapeutic range is an INR of 2.5-3.5. Blood BLOOD SPECIMEN / Unknown Lab Venipuncture / Unknown 10/31/2019 6:44 AM CDT 10/31/2019 6:58 AM CDT Nano Garces MD LAB - COAGULATI ON ORDERABLES Performing Organization Address City/[facility]/ZIP Co de Phone Number [address] [phone] * PHOSPHORUS BLOOD (10/31/2019 6:44 AM CDT) Phosphorus 2.3 2.3 - 4.7 mg/dL 10/31/2019 7:31 AM CDT [facility] Blood BLOOD SPECIMEN / Unknown Lab Venipuncture / Unknown 10/31/2019 6:44 AM CDT 10/31/2019 6:58 AM CDT Nano Garces MD LAB - CHEMISTRY ORDERABLES [address] [phone] * MAGNESIUM BLOOD (10/31/2019 6:44 AM CDT) Magnesium 1.7 1.6 - 2.6 mg/dL 10/31/2019 7:31 AM CDT [facility] Blood BLOOD SPECIMEN / Unknown Lab Venipuncture / Unknown 10/31/2019 6:44 AM CDT 10/31/2019 6:58 AM CDT Nano Garces MD LAB - CHEMISTRY ORDERABLES [address] [phone] * XR ABDOMEN KUB PORTABLE (10/30/2019 1:11 PM CDT) Anatomical Region Laterality Modality Abdomen Radiographic Radha ging 10/30/2019 1:12 PM CDT Impressions 10/31/2019 12:54 PM CDT IMPRESSION: The NG tube terminates in the gastric body. Dictated by Lakisha Power M.D. (residential real estate sales manager) [place], Dr. SLICK GREENBERG have personally reviewed and interpreted this examination/study. This report was electronically signed by SLICK GREENBERG ??on 10/31/2019 12:54 PM . Narrative 10/31/2019 12:54 PM CDT EXAMINATION: XR ABDOMEN KUB PORTABLE HISTORY: NG tube placement COMPARISON: Abdomen KUB from 10/28/2019 Procedure Note Slick Greenberg MD - 10/31/2019 EXAMINATION: XR ABDOMEN KUB PORTABLE HISTORY: NG tube placement COMPARISON: Abdomen KUB from 10/28/2019 IMPRESSION: The NG tube terminates in the gastric body. Dictated by Lakisha Power M.D. (residential real estate sales manager) [place], Dr. SLICK GREENBERG have personally reviewed and interpreted this examination/study. This report was electronically signed by SLICK GREENBERG on 10/31/2019 12:54 PM . Tyrone Solis MD DIAGNOSTIC IMAGING ORDERABLES * (ABNORMAL) CBC W AUTO DIFFERENTIAL (10/30/2019 10:54 AM CDT) WBC 10.7(H) 3.5 - 10.5 10? 3 /uL 10/30/2019 11:02 AM CDT [facility] RBC 2.33(L) 3.90 - 5.00 10? 6 /uL 10/30/2019 11:02 AM CDT [facility] Hemoglobin 7.1(L) 12.0 - 15.5 g/dL 10/30/2019 11:02 AM [facility] Hematocrit 20.9(L) 35.0 - 45.0 % 10/30/2019 11:02 AM [facility] MCV 89.7 81.0 - 97.0 fL 10/30/2019 11:02 AM [facility] MCH 30.5 28.0 - 34.0 pg 10/30/2019 11:02 AM [facility] MCHC 34.0 32.0 - 36.0 g/dL 10/30/2019 11:02 AM [facility] Platelet Count 158 150 - 400 10? 3 /uL 10/30/2019 11:02 AM [facility] RDW-SD 45.3 36.0 - 50.0 fL 10/30/2019 11:02 AM [facility] RDW-CV 13.9 11.2 - 14.8 % 10/30/2019 11:02 AM [facility] MPV 10.4 9.3 - 12.8 fL 10/30/2019 11:02 AM [facility] nRBC Absolute 0.00 0 10? 3 /uL 10/30/2019 11:02 AM [facility] nRBC Auto 0.0 0 /100 WBC 10/30/2019 11:02 AM [facility] Neutrophils % 80.0(H) 35.0 - 70.0 % 10/30/2019 11:02 AM [facility] Lymphocytes % 9.7(L) 19.7 - 55.1 % 10/30/2019 11:02 AM [facility] Monocytes % 6.4 3.0 - 15.0 % 10/30/2019 11:02 AM [facility] Eosinophils % 3.1 0.0 - 6.0 % 10/30/2019 11:02 AM [facility] Basophil % 0.2 0.0 - 1.5 % 10/30/2019 11:02 AM [facility] Neutrophils Absolute 8.6(H) 1.6 - 7.0 10? 3 /uL 10/30/2019 11:02 AM [facility] Lymphocyte Absolute 1.0 0.8 - 2.9 10? 3 /uL 10/30/2019 11:02 AM [facility] Monocytes Absolute 0.68(H) 0.14 - 0.66 10? 3 /uL 10/30/2019 11:02 AM CDT [facility] Eosinophils Absolute 0.33 0.00 - 0.45 10? 3 /uL 10/30/2019 11:02 AM CDT [facility] Basophils Absolute 0.02 0.00 - 0.06 10? 3 /uL 10/30/2019 11:02 AM [facility] Immature Granulocytes % 0.6 0.0 - 1.0 % 10/30/2019 11:02 AM T [facility] Blood BLOOD SPECIMEN / Unknown Venipuncture / Unknown 10/30/2019 10:54 AM CDT 10/30/2019 10:58 AM CDT Tyrone Solis MD LAB - HEMATOLOGY OR DERABLES Performing Organization Address City/State/[facility] Co de Phone Number [address] [phone] * (ABNORMAL) CBC W/O DIFFERENTIAL (10/30/2019 1:05 AM [facility]) WBC 12.2(H) 3.5 - 10.5 10? 3 /uL 10/30/2019 1:13 AM [facility] RBC 2.27(L) 3.90 - 5.00 10? 6 /uL 10/30/2019 1:13 AM [facility] Hemoglobin 7.0(L) 12.0 - 15.5 g/dL 10/30/2019 1:13 AM [facility] [facility] Hematocrit 20.4(L) 35.0 - 45.0 % 10/30/2019 1:13 AM [facility] MCV 89.9 81.0 - 97.0 fL 10/30/2019 1:13 AM [facility] MCH 30.8 28.0 - 34.0 pg 10/30/2019 1:13 AM [facility] MCHC 34.3 32.0 - 36.0 g/dL 10/30/2019 1:13 AM [facility] Platelet Count 138(L) 150 - 400 10? 3 /uL 10/30/2019 1:13 AM [facility] RDW-SD 46.6 36.0 - 50.0 fL 10/30/2019 1:13 AM [facility] RDW-CV 14.2 11.2 - 14.8 % 10/30/2019 1:13 AM [facility] MPV 10.4 9.3 - 12.8 fL 10/30/2019 1:13 AM [facility] nRBC Absolute 0.00 0 10? 3 /uL 10/30/2019 1:13 AM [facility] nRBC Auto 0.0 0 /100 WBC 10/30/2019 1:13 AM [facility] Blood BLOOD SPECIMEN / Unknown Venipuncture / Unknown 10/30/2019 1:05 AM CRIMINAL RESEARCHER 10/30/2019 1:08 AM [facility] Kapil Gonsalves MD LAB - HEMATOLOGY ORD ERABLES Performing Organization Address City/State/[facility] Co de Phone Number [facility] [address] [place] [address] * (ABNORMAL) BASIC METABOLIC PANEL (CALCIUM TOTAL) (10/29/2019 11:38 PM CRIMINAL RESEARCHER) BUN 2(L) 7 - 26 mg/dL 10/30/2019 12:03 AM [facility] Creatinine 0.7 0.6 - 1.2 mg/dL 10/30/2019 12:03 AM [facility] Sodium 135(L) 136 - 145 mmol/L 10/30/2019 12:03 AM [facility] Potassium 3.4(L) 3.5 - 4.5 mmol/L 10/30/2019 12:03 AM [facility] Chloride 108(H) 98 - 107 mmol/L 10/30/2019 12:03 AM [facility] CO2 21(L) 22 - 29 mmol/L 10/30/2019 12:03 AM [facility] Glucose 115 70 - 115 mg/dL 10/30/2019 12:03 AM [facility] Calcium 7.7(L) 8.4 - 10.2 mg/dL 10/30/2019 12:03 AM [facility] Anion Gap 9 8 - 18 10/30/2019 12:03 AM [facility] BUN/Creatinine Ratio 3(L) 7 - 23 10/30/2019 12:03 AM [facility] Osmolality Calculated 277 270 - 300 mOsm/kg 10/30/2019 12:03 AM [facility] eGFR >60 >60 mL/min/1.7 3 m2 10/30/2019 12:03 AM [facility] Blood BLOOD SPECIMEN / Unknown Venipuncture / Unknown 10/29/2019 11:38 PM CRIMINAL RESEARCHER 10/29/2019 11:44 PM CRIMINAL RESEARCHER Kapil Gonsalves MD LAB - CHEMISTRY ANGELA JONES Performing Organization Address [facility] Co de Phone Number [address] [phone] * PT-INR [facility] (10/29/2019 11:38 PM CRIMINAL RESEARCHER) PT 14.8 12.1 - 14.8 Seconds 10/30/2019 12:20 AM [facility] INR 1.2 See Comment 10/30/2019 12:20 AM [facility] Comment:The suggested therap eutic range for standard coumadin (warfarin) therapy is an INR of 2.0-3.0. For high-risk patients (Mechanical Mitral Valve Prosthesis, etc.), the suggested prophylactic therapeutic range is an INR of 2.5-3.5. Blood BLOOD SPECIMEN / Unknown Venipuncture / Unknown 10/29/2019 11:38 PM CRIMINAL RESEARCHER 10/29/2019 11:44 PM CRIMINAL RESEARCHER Nano Garces MD LAB - COAGULATI ON ORDERABLES Performing Organization Address City/[facility]/ZIP Co de Phone Number [address] [phone] * (ABNORMAL) PHOSPHORUS BLOOD (10/29/2019 11:38 PM CRIMINAL RESEARCHER) Phosphorus 2.0(L) 2.3 - 4.7 mg/dL 10/30/2019 12:03 AM [facility] Blood BLOOD SPECIMEN / Unknown Venipuncture / Unknown 10/29/2019 11:38 PM CRIMINAL RESEARCHER 10/29/2019 11:44 PM CRIMINAL RESEARCHER Nano Garces MD LAB - CHEMISTRY ORDERABLES [address] [phone] * MAGNESIUM BLOOD (10/29/2019 11:38 PM CRIMINAL RESEARCHER) Magnesium 1.8 1.6 - 2.6 mg/dL 10/30/2019 12:03 AM [facility] Blood BLOOD SPECIMEN / Unknown Venipuncture / Unknown 10/29/2019 11:38 PM CRIMINAL RESEARCHER 10/29/2019 11:44 PM CRIMINAL RESEARCHER Nano Garces MD LAB - CHEMISTRY ORDERABLES Performing Organization Address City/[facility]/ZIP Co de Phone Number [address] [phone] * (ABNORMAL) CBC W/O DIFFERENTIAL (10/29/2019 1:03 PM CRIMINAL RESEARCHER) WBC 12.3(H) 3.5 - 10.5 10? 3 /uL 10/29/2019 1:41 PM [facility] RBC 2.28(L) 3.90 - 5.00 10? 6 /uL 10/29/2019 1:41 PM [facility] Hemoglobin 7.0(L) 12.0 - 15.5 g/dL 10/29/2019 1:41 PM [facility] Hematocrit 20.8(L) 35.0 - 45.0 % 10/29/2019 1:41 PM [facility] MCV 91.2 81.0 - 97.0 fL 10/29/2019 1:41 PM [facility] MCH 30.7 28.0 - 34.0 pg 10/29/2019 1:41 PM [facility] MCHC 33.7 32.0 - 36.0 g/dL 10/29/2019 1:41 PM [facility] Platelet Count 118(L) 150 - 400 10? 3 /uL 10/29/2019 1:41 PM [facility] RDW-SD 49.7 36.0 - 50.0 fL 10/29/2019 1:41 PM [facility] RDW-CV 14.8 11.2 - 14.8 % 10/29/2019 1:41 PM [facility] MPV 11.1 9.3 - 12.8 fL 10/29/2019 1:41 PM [facility] nRBC Absolute 0.00 0 10? 3 /uL 10/29/2019 1:41 PM [facility] nRBC Auto 0.0 0 /100 WBC 10/29/2019 1:41 PM [facility] Blood BLOOD SPECIMEN / Unknown Venipuncture / Unknown 10/29/2019 1:03 PM CRIMINAL RESEARCHER 10/29/2019 1:17 PM [facility] Tyrone Solis MD LAB - HEMATOLOGY OR DERABLES Performing Organization Address [facility]/State/[facility] Co de Phone Number [facility] [address] [place] [address] * (ABNORMAL) BLOOD GASES ARTERIAL (10/29/2019 1:03 PM CRIMINAL RESEARCHER) pH Arterial 7.37 7.35 - 7.45 10/29/2019 1:20 PM [facility] pCO2 Arterial 31(L) 35 - 45 mmHg 10/29/2019 1:20 PM [facility] pO2 Arterial 130(H) 82 - 106 mmHg 10/29/2019 1:20 PM [facility] HCO3 Arterial 17.7(L) 22.0 - 26.0 mmol/L 10/29/2019 1:20 PM [facility] TCO2 Arterial 18.7(L) 25.0 - 29.0 mmol/L 10/29/2019 1:20 PM [facility] Base Excess Arterial -6.6(L) -2.0 - 2.0 mmol/L 10/29/2019 1:20 PM [facility] Hemoglobin Arterial 11.7(L) 12.0 - 15.5 g/dL 10/29/2019 1:20 PM [facility] Oxyhemoglobin Arterial 97.1 95.0 - 100.0 % 10/29/2019 1:20 PM [facility] Carboxyhemoglobin 0.3 0.0 - 3.0 % 10/29/2019 1:20 PM [facility] Methemoglobin 0.4 0.0 - 2.0 % 10/29/2019 1:20 PM [facility] FI O2 Arterial 50.0 % 10/29/2019 1:20 PM [facility] Blood, arterial ARTERIAL BLOOD SPECIMEN / Unknown Arterial Puncture / Unknown 10/29/2019 1:03 PM CRIMINAL RESEARCHER 10/29/2019 1:17 PM CRIMINAL RESEARCHER Tyrone Solis MD LAB - BLOOD GASES O RDERABLES [facility] [address] [phone] * (ABNORMAL) BASIC METABOLIC PANEL (CALCIUM TOTAL) (10/29/2019 1:03 PM CRIMINAL RESEARCHER) BUN 4(L) 7 - 26 mg/dL 10/29/2019 1:38 PM [facility] Creatinine 0.7 0.6 - 1.2 mg/dL 10/29/2019 1:38 PM [facility] Sodium 138 136 - 145 mmol/L 10/29/2019 1:38 PM [facility] Potassium 3.5 3.5 - 4.5 mmol/L 10/29/2019 1:38 PM [facility] Chloride 109(H) 98 - 107 mmol/L 10/29/2019 1:38 PM [facility] CO2 20(L) 22 - 29 mmol/L 10/29/2019 1:38 PM [facility] Glucose 97 70 - 115 mg/dL 10/29/2019 1:38 PM [facility] Calcium 7.6(L) 8.4 - 10.2 mg/dL 10/29/2019 1:38 PM [facility] Anion Gap 13 8 - 18 10/29/2019 1:38 PM [facility] BUN/Creatinine Ratio 6(L) 7 - 23 10/29/2019 1:38 PM [facility] Osmolality Calculated 283 270 - 300 mOsm/kg 10/29/2019 1:38 PM [facility] eGFR >60 >60 mL/min/1.7 3 m2 10/29/2019 1:38 PM [facility] Blood BLOOD SPECIMEN / Unknown Venipuncture / Unknown 10/29/2019 1:03 PM CRIMINAL RESEARCHER 10/29/2019 1:17 PM CRIMINAL RESEARCHER Tyrone Solis MD LAB - CHEMISTRY ORD ERABLES [facility] [address] [place] [address] * (ABNORMAL) CBC W/O DIFFERENTIAL (10/29/2019 6:31 AM CRIMINAL RESEARCHER) WBC 14.0(H) 3.5 - 10.5 10? 3 /uL 10/29/2019 6:55 AM [facility] RBC 2.39(L) 3.90 - 5.00 10? 6 /uL 10/29/2019 6:55 AM [facility] Hemoglobin 7.4(L) 12.0 - 15.5 g/dL 10/29/2019 6:55 AM [facility] Hematocrit 21.8(L) 35.0 - 45.0 % 10/29/2019 6:55 AM [facility] MCV 91.2 81.0 - 97.0 fL 10/29/2019 6:55 AM [facility] MCH 31.0 28.0 - 34.0 pg 10/29/2019 6:55 AM [facility] MCHC 33.9 32.0 - 36.0 g/dL 10/29/2019 6:55 AM [facility] Platelet Count 112(L) 150 - 400 10? 3 /uL 10/29/2019 6:55 AM [facility] RDW-SD 51.0(H) 36.0 - 50.0 fL 10/29/2019 6:55 AM [facility] RDW-CV 15.2(H) 11.2 - 14.8 % 10/29/2019 6:55 AM [facility] MPV 11.1 9.3 - 12.8 fL 10/29/2019 6:55 AM [facility] nRBC Absolute 0.00 0 10? 3 /uL 10/29/2019 6:55 AM [facility] nRBC Auto 0.0 0 /100 WBC 10/29/2019 6:55 AM [facility] Blood BLOOD SPECIMEN / Unknown Venipuncture / Unknown 10/29/2019 6:31 AM CRIMINAL RESEARCHER 10/29/2019 6:36 AM CRIMINAL RESEARCHER Tyrone Solis MD LAB - HEMATOLOGY OR DERABLES [facility] [address] [phone] * (ABNORMAL) BLOOD GASES ARTERIAL (10/29/2019 6:31 AM [facility]) pH Arterial 7.38 7.35 - 7.45 10/29/2019 7:16 AM [facility] pCO2 Arterial 38 35 - 45 mmHg 10/29/2019 7:16 AM [facility] pO2 Arterial 212(H) 82 - 106 mmHg 10/29/2019 7:16 AM [facility] HCO3 Arterial 21.8(L) 22.0 - 26.0 mmol/L 10/29/2019 7:16 AM [facility] TCO2 Arterial 22.9(L) 25.0 - 29.0 mmol/L 10/29/2019 7:16 AM [facility] Base Excess Arterial -3.1(L) -2.0 - 2.0 mmol/L 10/29/2019 7:16 AM [facility] Hemoglobin Arterial 7.4(L) 12.0 - 15.5 g/dL 10/29/2019 7:16 AM [facility] Oxyhemoglobin Arterial 97.5 95.0 - 100.0 % 10/29/2019 7:16 AM [facility] Carboxyhemoglobin 0.2 0.0 - 3.0 % 10/29/2019 7:16 AM [facility] Methemoglobin 0.7 0.0 - 2.0 % 10/29/2019 7:16 AM [facility] FI O2 Arterial 40.0 % 10/29/2019 7:16 AM [facility] Blood, arterial ARTERIAL BLOOD SPECIMEN / Unknown Arterial Puncture / Unknown 10/29/2019 6:31 AM CRIMINAL RESEARCHER 10/29/2019 7:14 AM CRIMINAL RESEARCHER Tyrone Solis MD LAB - BLOOD GASES O RDERABLES [address] [phone] * (ABNORMAL) BASIC METABOLIC PANEL (CALCIUM TOTAL) (10/29/2019 6:31 AM CRIMINAL RESEARCHER) BUN 4(L) 7 - 26 mg/dL 10/29/2019 7:09 AM [facility] Creatinine 0.8 0.6 - 1.2 mg/dL 10/29/2019 7:09 AM [facility] Sodium 137 136 - 145 mmol/L 10/29/2019 7:09 AM [facility] Potassium 3.5 3.5 - 4.5 mmol/L 10/29/2019 7:09 AM [facility] Chloride 109(H) 98 - 107 mmol/L 10/29/2019 7:09 AM [facility] CO2 21(L) 22 - 29 mmol/L 10/29/2019 7:09 AM [facility] Glucose 83 70 - 115 mg/dL 10/29/2019 7:09 AM [facility] Calcium 7.9(L) 8.4 - 10.2 mg/dL 10/29/2019 7:09 AM [facility] Anion Gap 11 8 - 18 10/29/2019 7:09 AM [facility] BUN/Creatinine Ratio 5(L) 7 - 23 10/29/2019 7:09 AM [facility] Osmolality Calculated 280 270 - 300 mOsm/kg 10/29/2019 7:09 AM [facility] eGFR >60 >60 mL/min/1.7 3 m2 10/29/2019 7:09 AM [facility] Blood BLOOD SPECIMEN / Unknown Venipuncture / Unknown 10/29/2019 6:31 AM CRIMINAL RESEARCHER 10/29/2019 6:36 AM CRIMINAL RESEARCHER Tyrone Solis MD LAB - CHEMISTRY ORD ERABLES [address] [phone] * XR CHEST 1VW PORTABLE (10/29/2019 6:03 AM CRIMINAL RESEARCHER) Anatomical Region Laterality Modality Chest Radiographic Radha ging 10/29/2019 8:37 AM CRIMINAL RESEARCHER Impressions 10/29/2019 7:08 PM CRIMINAL RESEARCHER FINDINGS/IMPRESSION: The endotracheal tube terminates in the mid to distal thoracic trachea. The enteric tube terminates in the distal stomach. A right internal jugular approach central venous catheter superimposes the superior vena cava. The lung volumes remain small. There is no focal consolidation, pleural effusion, or pneumothorax. The cardiomediastinal silhouette is stable. Dictated by Cal Sahu MD (human resources vice president). Dr. CANDE Simmons have personally reviewed and interpreted this examination/study. This report was electronically signed by CANDE LECHUGA ??on 10/29/2019 7:08 PM . Narrative 10/29/2019 7:08 PM CRIMINAL RESEARCHER EXAMINATION: XR CHEST 1VW PORTABLE HISTORY: [id number]: Trauma COMPARISON: Comparison is made with a study from 10/28/2019. Procedure Note Cande Lechuga MD - 10/29/2019 EXAMINATION: XR CHEST 1VW [...] is stable. Dictated by Cal Sahu MD (human resources vice president). Dr. CANDE Simmons have personally reviewed and interpreted this examination/study. This report was electronically signed by CANDE LECHUGA on 10/29/20197:08 PM . Kapil Gonsalves MD DIAGNOSTIC IMAGING O RDERABLES * (ABNORMAL) CBC W/O DIFFERENTIAL (10/29/2019 12:42 AM CRIMINAL RESEARCHER) WBC 13.3(H) 3.5 - 10.5 10? 3 /uL 10/29/2019 12:55 AM [facility] RBC 2.53(L) 3.90 - 5.00 10? 6 /uL 10/29/2019 12:55 AM [facility] Hemoglobin 7.8(L) 12.0 - 15.5 g/dL 10/29/2019 12:55 AM [facility] Hematocrit 22.9(L) 35.0 - 45.0 % 10/29/2019 12:55 AM [facility] MCV 90.5 81.0 - 97.0 fL 10/29/2019 12:55 AM [facility] MCH 30.8 28.0 - 34.0 pg 10/29/2019 12:55 AM [facility] MCHC 34.1 32.0 - 36.0 g/dL 10/29/2019 12:55 AM [facility] Platelet Count 102(L) 150 - 400 10? 3 /uL 10/29/2019 12:55 AM [facility] RDW-SD 50.6(H) 36.0 - 50.0 fL 10/29/2019 12:55 AM [facility] RDW-CV 15.3(H) 11.2 - 14.8 % 10/29/2019 12:55 AM [facility] MPV 11.2 9.3 - 12.8 fL 10/29/2019 12:55 AM [facility] nRBC Absolute 0.00 0 10? 3 /uL 10/29/2019 12:55 AM [facility] nRBC Auto 0.0 0 /100 WBC 10/29/2019 12:55 AM [facility] Blood BLOOD SPECIMEN / Unknown Venipuncture / Unknown 10/29/2019 12:42 AM CRIMINAL RESEARCHER 10/29/2019 12:48 AM CRIMINAL RESEARCHER Tyrone Solis MD LAB - HEMATOLOGY OR DERABLES [address] [phone] * (ABNORMAL) BLOOD GASES ARTERIAL (10/29/2019 12:42 AM CRIMINAL RESEARCHER) pH Arterial 7.36 7.35 - 7.45 10/29/2019 12:51 AM [facility] pCO2 Arterial 37 35 - 45 mmHg 10/29/2019 12:51 AM [facility] pO2 Arterial 157(H) 82 - 106 mmHg 10/29/2019 12:51 AM [facility] HCO3 Arterial 20.8(L) 22.0 - 26.0 mmol/L 10/29/2019 12:51 AM [facility] TCO2 Arterial 21.9(L) 25.0 - 29.0 mmol/L 10/29/2019 12:51 AM [facility] Base Excess Arterial -4.2(L) -2.0 - 2.0 mmol/L 10/29/2019 12:51 AM [facility] Hemoglobin Arterial 7.6(L) 12.0 - 15.5 g/dL 10/29/2019 12:51 AM [facility] Oxyhemoglobin Arterial 97.3 95.0 - 100.0 % 10/29/2019 12:51 AM [facility] Carboxyhemoglobin 0.1 0.0 - 3.0 % 10/29/2019 12:51 AM [facility] Methemoglobin 0.5 0.0 - 2.0 % 10/29/2019 12:51 AM [facility] FI O2 Arterial 40.0 % 10/29/2019 12:51 AM [facility] Blood, arterial ARTERIAL BLOOD SPECIMEN / Unknown Arterial Puncture / Unknown 10/29/2019 12:42 AM CRIMINAL RESEARCHER 10/29/2019 12:46 AM [facility] Tyrone Solis MD LAB - BLOOD GASES O RDERABLES [address] [phone] * (ABNORMAL) BASIC METABOLIC PANEL (CALCIUM TOTAL) (10/29/2019 12:42 AM [facility]) BUN 5(L) 7 - 26 mg/dL 10/29/2019 1:15 AM [facility] Creatinine 0.8 0.6 - 1.2 mg/dL 10/29/2019 1:15 AM [facility] Sodium 138 136 - 145 mmol/L 10/29/2019 1:15 AM [facility] Potassium 3.5 3.5 - 4.5 mmol/L 10/29/2019 1:15 AM [facility] Chloride 109(H) 98 - 107 mmol/L 10/29/2019 1:15 AM [facility] CO2 19(L) 22 - 29 mmol/L 10/29/2019 1:15 AM [facility] Glucose 86 70 - 115 mg/dL 10/29/2019 1:15 AM [facility] Calcium 7.9(L) 8.4 - 10.2 mg/dL 10/29/2019 1:15 AM [facility] Anion Gap 14 8 - 18 10/29/2019 1:15 AM [facility] BUN/Creatinine Ratio 6(L) 7 - 23 10/29/2019 1:15 AM [facility] Osmolality Calculated 283 270 - 300 mOsm/kg 10/29/2019 1:15 AM [facility] eGFR >60 >60 mL/min/1.7 3 m2 10/29/2019 1:15 AM [facility] Blood BLOOD SPECIMEN / Unknown Venipuncture / Unknown 10/29/2019 12:42 AM [facility] 10/29/2019 12:48 AM [facility] Tyrone Solis MD LAB - CHEMISTRY ORD ERABLES [address] [phone] * (ABNORMAL) PT-INR [facility] (10/29/2019 12:42 AM [facility]) PT 16.4(H) 12.1 - 14.8 Seconds 10/29/2019 12:59 AM [facility] INR 1.4 See Comment 10/29/2019 12:59 AM [facility] Comment:The suggested therap eutic range for standard coumadin (warfarin) therapy is an INR of 2.0-3.0. For high-risk patients (Mechanical Mitral Valve Prosthesis, etc.), the suggested prophylactic therapeutic range is an INR of 2.5-3.5. Blood BLOOD SPECIMEN / Unknown Venipuncture / Unknown 10/29/2019 12:42 AM [facility] 10/29/2019 12:48 AM [facility] Nano Garces MD LAB - COAGULATI ON ORDERABLES Performing Organization Address City/[facility]/ZIP Co de Phone Number [address] [phone] * PHOSPHORUS BLOOD (10/29/2019 12:42 AM [facility]) Phosphorus 2.5 2.3 - 4.7 mg/dL 10/29/2019 1:15 AM [facility] Blood BLOOD SPECIMEN / Unknown Venipuncture / Unknown 10/29/2019 12:42 AM [facility] 10/29/2019 12:48 AM [facility] Nano Garces MD LAB - CHEMISTRY ORDERABLES Performing Organization Address [facility] Co de Phone Number [address] [phone] * MAGNESIUM BLOOD (10/29/2019 12:42 AM [facility]) Magnesium 1.7 1.6 - 2.6 mg/dL 10/29/2019 1:15 AM [facility] Blood BLOOD SPECIMEN / Unknown Venipuncture / Unknown 10/29/2019 12:42 AM [facility] 10/29/2019 12:48 AM [facility] Nano Garces MD LAB - CHEMISTRY ORDERABLES Performing Organization Address City/[facility]/ZIP Co de Phone Number [address] [phone] * (ABNORMAL) CBC W/O DIFFERENTIAL (10/28/2019 6:17 PM [facility]) WBC 12.1(H) 3.5 - 10.5 10? 3 /uL 10/28/2019 6:33 PM [facility] RBC 2.49(L) 3.90 - 5.00 10? 6 /uL 10/28/2019 6:33 PM [facility] Hemoglobin 7.7(L) 12.0 - 15.5 g/dL 10/28/2019 6:33 PM [facility] Hematocrit 22.5(L) 35.0 - 45.0 % 10/28/2019 6:33 PM [facility] MCV 90.4 81.0 - 97.0 fL 10/28/2019 6:33 PM [facility] MCH 30.9 28.0 - 34.0 pg 10/28/2019 6:33 PM [facility] MCHC 34.2 32.0 - 36.0 g/dL 10/28/2019 6:33 PM [facility] [facility] Platelet Count 95(L) 150 - 400 10? 3 /uL 10/28/2019 6:33 PM [facility] RDW-SD 51.4(H) 36.0 - 50.0 fL 10/28/2019 6:33 PM [facility] RDW-CV 15.5(H) 11.2 - 14.8 % 10/28/2019 6:33 PM [facility] MPV 11.2 9.3 - 12.8 fL 10/28/2019 6:33 PM [facility] nRBC Absolute 0.00 0 10? 3 /uL 10/28/2019 6:33 PM [facility] nRBC Auto 0.0 0 /100 WBC 10/28/2019 6:33 PM [facility] Blood BLOOD SPECIMEN / Unknown Venipuncture / Unknown 10/28/2019 6:17 PM CRIMINAL RESEARCHER 10/28/2019 6:28 PM [facility] Tyrone Solis MD LAB - HEMATOLOGY OR DERABLES [address] [phone] * (ABNORMAL) BLOOD GASES ARTERIAL (10/28/2019 6:17 PM CRIMINAL RESEARCHER) pH Arterial 7.42 7.35 - 7.45 10/28/2019 6:29 PM [facility] pCO2 Arterial 30(L) 35 - 45 mmHg 10/28/2019 6:29 PM [facility] pO2 Arterial 142(H) 82 - 106 mmHg 10/28/2019 6:29 PM [facility] HCO3 Arterial 19.1(L) 22.0 - 26.0 mmol/L 10/28/2019 6:29 PM [facility] TCO2 Arterial 20.0(L) 25.0 - 29.0 mmol/L 10/28/2019 6:29 PM [facility] Base Excess Arterial -4.7(L) -2.0 - 2.0 mmol/L 10/28/2019 6:29 PM [facility] Hemoglobin Arterial 7.9(L) 12.0 - 15.5 g/dL 10/28/2019 6:29 PM [facility] Oxyhemoglobin Arterial 97.3 95.0 - 100.0 % 10/28/2019 6:29 PM [facility] Carboxyhemoglobin 0.3 0.0 - 3.0 % 10/28/2019 6:29 PM [facility] Methemoglobin 0.7 0.0 - 2.0 % 10/28/2019 6:29 PM [facility] FI O2 Arterial 40.0 % 10/28/2019 6:29 PM [facility] Blood, arterial ARTERIAL BLOOD SPECIMEN / Unknown Arterial Puncture / Unknown 10/28/2019 6:17 PM CRIMINAL RESEARCHER 10/28/2019 6:28 PM [facility] Tyrone Solis MD LAB - BLOOD GASES O RDERABLES [facility] [address] [phone] * (ABNORMAL) BASIC METABOLIC PANEL (CALCIUM TOTAL) (10/28/2019 6:17 PM [facility]) BUN 6(L) 7 - 26 mg/dL 10/28/2019 7:03 PM [facility] Creatinine 0.7 0.6 - 1.2 mg/dL 10/28/2019 7:03 PM [facility] Sodium 138 136 - 145 mmol/L 10/28/2019 7:03 PM [facility] Potassium 3.7 3.5 - 4.5 mmol/L 10/28/2019 7:03 PM [facility] Chloride 109(H) 98 - 107 mmol/L 10/28/2019 7:03 PM [facility] CO2 20(L) 22 - 29 mmol/L 10/28/2019 7:03 PM [facility] Glucose 89 70 - 115 mg/dL 10/28/2019 7:03 PM [facility] Calcium 7.6(L) 8.4 - 10.2 mg/dL 10/28/2019 7:03 PM [facility] Anion Gap 13 8 - 18 10/28/2019 7:03 PM [facility] BUN/Creatinine Ratio 9 7 - 23 10/28/2019 7:03 PM [facility] Osmolality Calculated 283 270 - 300 mOsm/kg 10/28/2019 7:03 PM [facility] eGFR >60 >60 mL/min/1.7 3 m2 10/28/2019 7:03 PM [facility] Blood BLOOD SPECIMEN / Unknown Venipuncture / Unknown 10/28/2019 6:17 PM CRIMINAL RESEARCHER 10/28/2019 6:28 PM [facility] Tyrone Solis MD LAB - CHEMISTRY ORD ERABLES [address] [phone] * (ABNORMAL) BLOOD GASES ART COMPLETE [facility] OR (10/28/2019 2:12 PM [facility]) pH Arterial 7.38 7.35 - 7.45 10/28/2019 2:18 PM [facility] pCO2 Arterial 37 35 - 45 mmHg 10/28/2019 2:18 PM [facility] pO2 Arterial 133 mmHg 10/28/2019 2:18 PM [facility] HCO3 Arterial 21.4(L) 22.0 - 26.0 mmol/L 10/28/2019 2:18 PM [facility] TCO2 Arterial 22.6(L) 25.0 - 29.0 mmol/L 10/28/2019 2:18 PM [facility] Base Excess Arterial -3.3(L) -2.0 - 2.0 mmol/L 10/28/2019 2:18 PM [facility] Hemoglobin Arterial 8.6(L) 12.0 - 15.5 g/dL 10/28/2019 2:18 PM [facility] Oxyhemoglobin Arterial 97.1 92.0 - 100.0 % 10/28/2019 2:18 PM [facility] Carboxyhemoglobin 0.2 0.0 - 3.0 % 10/28/2019 2:18 PM [facility] Methemoglobin 0.2 0.0 - 2.0 % 10/28/2019 2:18 PM [facility] FI O2 Arterial 50.0 % 10/28/2019 2:18 PM [facility] Ionized Calcium Whole Blood 1.10 mmol/L 10/28/2019 2:18 PM [facility] Adjusted Ionized Calcium 1.09(L) 1.19 - 1.34 mmol/L 10/28/2019 2:18 PM [facility] Sodium Whole Blood 134(L) 135 - 145 mmol/L 10/28/2019 2:18 PM [facility] Potassium Whole Blood 3.9 3.5 - 5.5 mmol/L 10/28/2019 2:18 PM [facility] Chloride Whole Blood 106 mmol/L 01/2020 2:18 PM [facility] Glucose Whole Blood 96 70 - 110 mg/dL 10/28/2019 2:18 PM [facility] Lactic Acid Whole Blood 0.8 0.5 - 3.4 mmol/L 10/28/2019 2:18 PM [facility] Blood ARTERIAL BLOOD SPECIMEN / Unknown Venipuncture / Unknown 10/28/2019 2:12 PM CRIMINAL RESEARCHER 10/28/2019 2:16 PM [facility] Campbell Alcala MD LAB - BLOOD GASES OR DERABLES [address] [phone] * (ABNORMAL) CBC W/O DIFFERENTIAL (10/28/2019 2:12 PM CRIMINAL RESEARCHER) WBC 12.2(H) 3.5 - 10.5 10? 3 /uL 10/28/2019 2:30 PM [facility] RBC 2.71(L) 3.90 - 5.00 10? 6 /uL 10/28/2019 2:30 PM [facility] Hemoglobin 8.3(L) 12.0 - 15.5 g/dL 10/28/2019 2:30 PM [facility] Hematocrit 24.4(L) 35.0 - 45.0 % 10/28/2019 2:30 PM [facility] MCV 90.0 81.0 - 97.0 fL 10/28/2019 2:30 PM [facility] MCH 30.6 28.0 - 34.0 pg 10/28/2019 2:30 PM [facility] MCHC 34.0 32.0 - 36.0 g/dL 10/28/2019 2:30 PM [facility] Platelet Count 98(L) 150 - 400 10? 3 /uL 10/28/2019 2:30 PM [facility] Comment:Checked with previou s results. RDW-SD 51.5(H) 36.0 - 50.0 fL 10/28/2019 2:30 PM [facility] RDW-CV 15.8(H) 11.2 - 14.8 % 10/28/2019 2:30 PM [facility] MPV 10.8 9.3 - 12.8 fL 10/28/2019 2:30 PM [facility] nRBC Absolute 0.00 0 10? 3 /uL 10/28/2019 2:30 PM [facility] nRBC Auto 0.0 0 /100 WBC 10/28/2019 2:30 PM [facility] Blood BLOOD SPECIMEN / Unknown Venipuncture / Unknown 10/28/2019 2:12 PM CRIMINAL RESEARCHER 10/28/2019 2:17 PM CRIMINAL RESEARCHER Tyrone Solis MD LAB - HEMATOLOGY OR DERABLES [address] [phone] * (ABNORMAL) BASIC METABOLIC PANEL (CALCIUM TOTAL) (10/28/2019 2:12 PM CRIMINAL RESEARCHER) BUN 6(L) 7 - 26 mg/dL 10/28/2019 2:40 PM [facility] Creatinine 0.7 0.6 - 1.2 mg/dL 10/28/2019 2:40 PM [facility] Sodium 138 136 - 145 mmol/L 10/28/2019 2:40 PM [facility] Potassium 3.9 3.5 - 4.5 mmol/L 10/28/2019 2:40 PM [facility] Chloride 108(H) 98 - 107 mmol/L 10/28/2019 2:40 PM [facility] CO2 21(L) 22 - 29 mmol/L 10/28/2019 2:40 PM [facility] Glucose 95 70 - 115 mg/dL 10/28/2019 2:40 PM [facility] Calcium 7.9(L) 8.4 - 10.2 mg/dL 10/28/2019 2:40 PM [facility] Anion Gap 13 8 - 18 10/28/2019 2:40 PM [facility] BUN/Creatinine Ratio 9 7 - 23 10/28/2019 2:40 PM [facility] Osmolality Calculated 283 270 - 300 mOsm/kg 10/28/2019 2:40 PM [facility] eGFR >60 >60 mL/min/1.7 3 m2 10/28/2019 2:40 PM [facility] Blood BLOOD SPECIMEN / Unknown Venipuncture / Unknown 10/28/2019 2:12 PM CRIMINAL RESEARCHER 10/28/2019 2:17 PM [facility] Tyrone Solis MD LAB - CHEMISTRY ORD ERABLES [address] [phone] * (ABNORMAL) BLOOD GASES ARTERIAL (10/28/2019 12:04 PM CRIMINAL RESEARCHER) pH Arterial 7.41 7.35 - 7.45 10/28/2019 12:09 PM [facility] pCO2 Arterial 36 35 - 45 mmHg 10/28/2019 12:09 PM [facility] pO2 Arterial 200 mmHg 10/28/2019 12:09 PM [facility] HCO3 Arterial 21.8(L) 22.0 - 26.0 mmol/L 10/28/2019 12:09 PM [facility] TCO2 Arterial 22.9(L) 25.0 - 29.0 mmol/L 10/28/2019 12:09 PM [facility] Base Excess Arterial -2.5(L) -2.0 - 2.0 mmol/L 10/28/2019 12:09 PM [facility] Hemoglobin Arterial 8.6(L) 12.0 - 15.5 g/dL 10/28/2019 12:09 PM [facility] Oxyhemoglobin Arterial 97.6 92.0 - 100.0 % 10/28/2019 12:09 PM [facility] Carboxyhemoglobin 0.2 0.0 - 3.0 % 10/28/2019 12:09 PM [facility] Methemoglobin 0.5 0.0 - 2.0 % 10/28/2019 12:09 PM [facility] FI O2 Arterial 50.0 % 10/28/2019 12:09 PM [facility] Blood, arterial ARTERIAL BLOOD SPECIMEN / Unknown Arterial Puncture / Unknown 10/28/2019 12:04 PM CRIMINAL RESEARCHER 10/28/2019 12:07 PM CRIMINAL RESEARCHER Tyrone Solis MD LAB - BLOOD GASES O RDERABLES [address] [phone] * XR ABDOMEN KUB PORTABLE (10/28/2019 12:00 PM CRIMINAL RESEARCHER) Anatomical Region Laterality Modality Abdomen Radiographic Radha ging 10/28/2019 12:1 1 PM CRIMINAL RESEARCHER Impressions 10/28/2019 1:16 PM CRIMINAL RESEARCHER IMPRESSION: No needles, instruments, or sponges. Results were conveyed to JALEN Suarez on 10/28/2019 at 12:10 PM This report was electronically signed by CHAD MOREL M.D. ??on 10/28/2019 1:16 PM . Narrative 10/28/2019 1:16 PM CRIMINAL RESEARCHER Exam: XR ABDOMEN KUB PORTABLE Date: 10/28/2019 12:01 PM History: T14.90XA: Trauma FINDINGS: 4 images are received from OR 10. The exam is done per protocol, with no known missing surgical materials. The following are seen: NG tube 2 abdominal drains Tavares catheter Staple line to the right of L2. Procedure Note Chad Morel MD - 10/28/2019 Exam: XR ABDOMEN KUB PORTABLE Date: 10/28/2019 12:01 PM History: T14.90XA: Trauma FINDINGS: 4 images are received from OR 10. The exam is done per protocol, with no known missing surgical materials. The following are seen: NG tube 2 abdominal drains Tavares catheter Staple line to the right of L2. IMPRESSION: No needles, instruments, or sponges. Results were conveyed to JALEN Suarez on 10/28/2019 at 12:10 PM This report was electronically signed by CHAD MOREL M.D. on 10/28/2019 1:16 PM . Alma Rosa Sinclair DO DIAGNOSTIC IMAGING O RDERABLES * (ABNORMAL) CBC W/O DIFFERENTIAL (10/28/2019 6:07 AM CRIMINAL RESEARCHER) WBC 11.6(H) 3.5 - 10.5 10? 3 /uL 10/28/2019 6:32 AM [facility] RBC 2.65(L) 3.90 - 5.00 10? 6 /uL 10/28/2019 6:32 AM [facility] Hemoglobin 8.2(L) 12.0 - 15.5 g/dL 10/28/2019 6:32 AM [facility] Hematocrit 23.7(L) 35.0 - 45.0 % 10/28/2019 6:32 AM [facility] MCV 89.4 81.0 - 97.0 fL 10/28/2019 6:32 AM [facility] MCH 30.9 28.0 - 34.0 pg 10/28/2019 6:32 AM [facility] MCHC 34.6 32.0 - 36.0 g/dL 10/28/2019 6:32 AM [facility] Platelet Count 91(L) 150 - 400 10? 3 /uL 10/28/2019 6:32 AM [facility] Comment:Checked with previou s results. RDW-SD 51.5(H) 36.0 - 50.0 fL 10/28/2019 6:32 AM [facility] RDW-CV 15.8(H) 11.2 - 14.8 % 10/28/2019 6:32 AM [facility] MPV 11.1 9.3 - 12.8 fL 10/28/2019 6:32 AM [facility] nRBC Absolute 0.00 0 10? 3 /uL 10/28/2019 6:32 AM [facility] nRBC Auto 0.0 0 /100 WBC 10/28/2019 6:32 AM [facility] Blood BLOOD SPECIMEN / Unknown Venipuncture / Unknown 10/28/2019 6:07 AM CRIMINAL RESEARCHER 10/28/2019 6:13 AM CRIMINAL RESEARCHER Tyrone Solis MD LAB - HEMATOLOGY OR DERABLES Performing Organization Address City/State/[facility] Co de Phone Number [place] [address] [phone] * (ABNORMAL) BLOOD GASES ARTERIAL (10/28/2019 6:07 AM [facility]) pH Arterial 7.37 7.35 - 7.45 10/28/2019 6:18 AM [facility] pCO2 Arterial 39 35 - 45 mmHg 10/28/2019 6:18 AM [facility] pO2 Arterial 168 mmHg 10/28/2019 6:18 AM [facility] HCO3 Arterial 22.1 22.0 - 26.0 mmol/L 10/28/2019 6:18 AM [facility] TCO2 Arterial 23.3(L) 25.0 - 29.0 mmol/L 10/28/2019 6:18 AM [facility] Base Excess Arterial -2.8(L) -2.0 - 2.0 mmol/L 10/28/2019 6:18 AM [facility] Hemoglobin Arterial 8.2(L) 12.0 - 15.5 g/dL 10/28/2019 6:18 AM [facility] Oxyhemoglobin Arterial 97.6 92.0 - 100.0 % 10/28/2019 6:18 AM [facility] Carboxyhemoglobin 0.1 0.0 - 3.0 % 10/28/2019 6:18 AM [facility] Methemoglobin 0.3 0.0 - 2.0 % 10/28/2019 6:18 AM [facility] FI O2 Arterial 40.0 % 10/28/2019 6:18 AM [facility] Blood, arterial ARTERIAL BLOOD SPECIMEN / Unknown Arterial Puncture / Unknown 10/28/2019 6:07 AM CRIMINAL RESEARCHER 10/28/2019 6:13 AM CRIMINAL RESEARCHER Tyrone Solis MD LAB - BLOOD GASES O RDERABLES [address] [phone] * (ABNORMAL) BASIC METABOLIC PANEL (CALCIUM TOTAL) (10/28/2019 6:07 AM [facility]) BUN 8 7 - 26 mg/dL 10/28/2019 6:34 AM [facility] Creatinine 0.8 0.6 - 1.2 mg/dL 10/28/2019 6:34 AM [facility] Sodium 139 136 - 145 mmol/L 10/28/2019 6:34 AM [facility] Potassium 3.7 3.5 - 4.5 mmol/L 10/28/2019 6:34 AM [facility] Chloride 112(H) 98 - 107 mmol/L 10/28/2019 6:34 AM [facility] CO2 22 22 - 29 mmol/L 10/28/2019 6:34 AM [facility] Glucose 91 70 - 115 mg/dL 10/28/2019 6:34 AM [facility] Calcium 7.7(L) 8.4 - 10.2 mg/dL 10/28/2019 6:34 AM [facility] Anion Gap 9 8 - 18 10/28/2019 6:34 AM [facility] BUN/Creatinine Ratio 10 7 - 23 10/28/2019 6:34 AM [facility] Osmolality Calculated 286 270 - 300 mOsm/kg 10/28/2019 6:34 AM [facility] eGFR >60 >60 mL/min/1.7 3 m2 10/28/2019 6:34 AM [facility] Blood BLOOD SPECIMEN / Unknown Venipuncture / Unknown 10/28/2019 6:07 AM CRIMINAL RESEARCHER 10/28/2019 6:13 AM CRIMINAL RESEARCHER Tyrone Solis MD LAB - CHEMISTRY ORD ERABLES Performing Organization Address City/[facility]/ZIP Co de Phone Number [address] [phone] * PHOSPHORUS BLOOD (10/28/2019 6:07 AM CRIMINAL RESEARCHER) Phosphorus 3.2 2.3 - 4.7 mg/dL 10/28/2019 6:34 AM CRIMINAL RESEARCHER [facility] Blood BLOOD SPECIMEN / Unknown Venipuncture / Unknown 10/28/2019 6:07 AM CRIMINAL RESEARCHER 10/28/2019 6:13 AM CRIMINAL RESEARCHER Nano Garces MD LAB - CHEMISTRY ORDERABLES Performing Organization Address [facility] Co de Phone Number [address] [phone] * MAGNESIUM BLOOD (10/28/2019 6:07 AM CRIMINAL RESEARCHER) Magnesium 2.0 1.6 - 2.6 mg/dL 10/28/2019 6:34 AM CRIMINAL RESEARCHER [facility] Blood BLOOD SPECIMEN / Unknown Venipuncture / Unknown 10/28/2019 6:07 AM CRIMINAL RESEARCHER 10/28/2019 6:13 AM CRIMINAL RESEARCHER Nano Garces MD LAB - CHEMISTRY ORDERABLES Performing Organization Address [facility] Co de Phone Number [address] [phone] * XR CHEST 1VW PORTABLE (10/28/2019 5:51 AM CRIMINAL RESEARCHER) Anatomical Region Laterality Modality Chest Radiographic Radha ging 10/28/2019 7:24 AM CRIMINAL RESEARCHER Impressions 10/28/2019 1:09 PM CRIMINAL RESEARCHER FINDINGS/IMPRESSION: Lines: Endotracheal tube tip projects 1.3 cm from the farida.. Enteric tube is coiled within the gastric region with tip projecting near the gastroesophageal junction. The tube is not completely visualized so kinking is excluded.. A right internal jugular approach CVC tip terminates over the superior vena cava. The lung volumes are low. Right basilar opacity is noted likely representing airspace disease or atelectasis. The right hemidiaphragm is slightly elevated. No pleural effusion, or pneumothorax. The cardiomediastinal silhouette is normal. Dictated by Leif Smiley MD (human resources vice president). I, Dr. ALMA ROSA CORDON have personally reviewed and interpreted this examination/study. This report was electronically signed by ALMA ROSA CORDON ??on 10/28/2019 1:09 PM . Narrative 10/28/2019 1:09 PM CRIMINAL RESEARCHER EXAMINATION: XR CHEST 1VW PORTABLE, 10/28/2019 5:51 AM HISTORY: T14.90XA: Trauma COMPARISON: Chest x-ray 10/27/2019. Procedure Note Alma Rosa Cordon, DO - 10/28/2019 EXAMINATION: XR CHEST 1VW PORTABLE, 10/28/2019 5:51 AM HISTORY: T14.90XA: Trauma COMPARISON: Chest x-ray 10/27/2019. FINDINGS/IMPRESSION: Lines: Endotracheal tube tip projects 1.3 cm from the farida.. Enteric tube is coiled within the gastric region with tip projectingnear the gastroesophageal junction. The tube is not completely visualized so kinking is excluded.. A right internal jugular approach CVC tip terminates over the superior vena cava. The lung volumes are low. Right basilar opacity is noted likely representing airspace disease or atelectasis. The right hemidiaphragm is slightly elevated. No pleural effusion, or pneumothorax. The cardiomediastinal silhouette is normal. Dictated by Leif Smiley MD (human resources vice president). [place], Dr. ALMA ROSA CORDON have personally reviewed and interpreted this examination/study. This report was electronically signed by ALMA ROSA CORDON on 10/28/2019 1:09 PM . Kapil Gonsalves MD DIAGNOSTIC IMAGING O RDERABLES * (ABNORMAL) CBC W/O DIFFERENTIAL (10/27/2019 11:57 PM CRIMINAL RESEARCHER) Pathologist [facility] WBC 10.2 3.5 - 10.5 10? 3 /uL 10/28/2019 12:21 AM CRIMINAL RESEARCHER [facility] RBC 2.72(L) 3.90 - 5.00 10? 6 /uL 10/28/2019 12:21 AM [facility] Hemoglobin 8.3(L) 12.0 - 15.5 g/dL 10/28/2019 12:21 AM [facility] Hematocrit 24.2(L) 35.0 - 45.0 % 10/28/2019 12:21 AM [facility] MCV 89.0 81.0 - 97.0 fL 10/28/2019 12:21 AM [facility] MCH 30.5 28.0 - 34.0 pg 10/28/2019 12:21 AM [facility] MCHC 34.3 32.0 - 36.0 g/dL 10/28/2019 12:21 AM [facility] Platelet Count 95(L) 150 - 400 10? 3 /uL 10/28/2019 12:21 AM [facility] Comment:Confirmed with previ ous result RDW-SD 50.9(H) 36.0 - 50.0 fL 10/28/2019 12:21 AM [facility] RDW-CV 15.5(H) 11.2 - 14.8 % 10/28/2019 12:21 AM [facility] MPV 10.9 9.3 - 12.8 fL 10/28/2019 12:21 AM [facility] nRBC Absolute 0.00 0 10? 3 /uL 10/28/2019 12:21 AM [facility] nRBC Auto 0.0 0 /100 WBC 10/28/2019 12:21 AM [facility] Blood BLOOD SPECIMEN / Unknown Venipuncture / Unknown 10/27/2019 11:57 PM CRIMINAL RESEARCHER 10/28/2019 12:05 AM [facility] Tyrone Solis MD LAB - HEMATOLOGY OR DERABLES [place] [id number] [address] [phone] * (ABNORMAL) BLOOD GASES ARTERIAL (10/27/2019 11:57 PM CRIMINAL RESEARCHER) pH Arterial 7.35 7.35 - 7.45 10/28/2019 12:09 AM [facility] pCO2 Arterial 42 35 - 45 mmHg 10/28/2019 12:09 AM [facility] pO2 Arterial 170 mmHg 10/28/2019 12:09 AM [facility] HCO3 Arterial 22.6 22.0 - 26.0 mmol/L 10/28/2019 12:09 AM [facility] TCO2 Arterial 23.9(L) 25.0 - 29.0 mmol/L 10/28/2019 12:09 AM [facility] Base Excess Arterial -2.8(L) -2.0 - 2.0 mmol/L 10/28/2019 12:09 AM [facility] Hemoglobin Arterial 8.6(L) 12.0 - 15.5 g/dL 10/28/2019 12:09 AM [facility] Oxyhemoglobin Arterial 97.4 92.0 - 100.0 % 10/28/2019 12:09 AM [facility] Carboxyhemoglobin 0.2 0.0 - 3.0 % 10/28/2019 12:09 AM [facility] Methemoglobin 0.5 0.0 - 2.0 % 10/28/2019 12:09 AM [facility] FI O2 Arterial 40.0 % 10/28/2019 12:09 AM [facility] Blood, arterial ARTERIAL BLOOD SPECIMEN / Unknown Arterial Puncture / Unknown 10/27/2019 11:57 PM CRIMINAL RESEARCHER 10/28/2019 12:05 AM [facility] Tyrone Solis MD LAB - BLOOD GASES O RDERABLES [address] [phone] * (ABNORMAL) BASIC METABOLIC PANEL (CALCIUM TOTAL) (10/27/2019 11:57 PM [facility]) BUN 10 7 - 26 mg/dL 10/28/2019 12:37 AM [facility] Creatinine 0.8 0.6 - 1.2 mg/dL 10/28/2019 12:37 AM [facility] Sodium 137 136 - 145 mmol/L 10/28/2019 12:37 AM [facility] Potassium 3.9 3.5 - 4.5 mmol/L 10/28/2019 12:37 AM [facility] Chloride 110(H) 98 - 107 mmol/L 10/28/2019 12:37 AM [facility] CO2 21(L) 22 - 29 mmol/L 10/28/2019 12:37 AM [facility] Glucose 130(H) 70 - 115 mg/dL 10/28/2019 12:37 AM [facility] Calcium 7.7(L) 8.4 - 10.2 mg/dL 10/28/2019 12:37 AM [facility] Anion Gap 10 8 - 18 10/28/2019 12:37 AM [facility] BUN/Creatinine Ratio 13 7 - 23 10/28/2019 12:37 AM [facility] Osmolality Calculated 285 270 - 300 mOsm/kg 10/28/2019 12:37 AM [facility] eGFR >60 >60 mL/min/1.7 3 m2 10/28/2019 12:37 AM [facility] Blood BLOOD SPECIMEN / Unknown Venipuncture / Unknown 10/27/2019 11:57 PM [facility]IMINAL RESEARCHER 10/28/2019 12:05 AM [facility] Tyrone Solis MD LAB - CHEMISTRY ORD ERABLES [address] [phone] * (ABNORMAL) PT-INR [facility] (10/27/2019 11:57 PM CRIMINAL RESEARCHER) PT 16.4(H) 12.1 - 14.8 Seconds 10/28/2019 12:29 AM [facility] INR 1.4 See Comment 10/28/2019 12:29 AM [facility] Comment:The suggested therap eutic range for standard coumadin (warfarin) therapy is an INR of 2.0-3.0. For high-risk patients (Mechanical Mitral Valve Prosthesis, etc.), the suggested prophylactic therapeutic range is an INR of 2.5-3.5. Blood BLOOD SPECIMEN / Unknown Venipuncture / Unknown 10/27/2019 11:57 PM CRIMINAL RESEARCHER 10/28/2019 12:05 AM CRIMINAL RESEARCHER Nano Garces MD LAB - COAGULATI ON ORDERABLES [address] [phone] * PHOSPHORUS BLOOD (10/27/2019 11:57 PM CRIMINAL RESEARCHER) Phosphorus 3.5 2.3 - 4.7 mg/dL 10/28/2019 12:37 AM [facility] Blood BLOOD SPECIMEN / Unknown Venipuncture / Unknown 10/27/2019 11:57 PM CRIMINAL RESEARCHER 10/28/2019 12:05 AM CRIMINAL RESEARCHER Nano Garces MD LAB - CHEMISTRY ORDERABLES Performing Organization Address [facility]/ZIP Co de Phone Number [address] [phone] * MAGNESIUM BLOOD (10/27/2019 11:57 PM CRIMINAL RESEARCHER) Magnesium 2.1 1.6 - 2.6 mg/dL 10/28/2019 12:37 AM [facility] Blood BLOOD SPECIMEN / Unknown Venipuncture / Unknown 10/27/2019 11:57 PM CRIMINAL RESEARCHER 10/28/2019 12:05 AM CRIMINAL RESEARCHER Nano Garces MD LAB - CHEMISTRY ORDERABLES [address] [phone] * (ABNORMAL) BASIC METABOLIC PANEL (CALCIUM TOTAL) (10/27/2019 6:13 PM CRIMINAL RESEARCHER) BUN 12 7 - 26 mg/dL 10/27/2019 6:45 PM [facility] Creatinine 0.8 0.6 - 1.2 mg/dL 10/27/2019 6:45 PM [facility] Sodium 139 136 - 145 mmol/L 10/27/2019 6:45 PM [facility] Potassium 4.5 3.5 - 4.5 mmol/L 10/27/2019 6:45 PM [facility] Chloride 112(H) 98 - 107 mmol/L 10/27/2019 6:45 PM [facility] CO2 19(L) 22 - 29 mmol/L 10/27/2019 6:45 PM [facility] Glucose 112 70 - 115 mg/dL 10/27/2019 6:45 PM [facility] Calcium 8.0(L) 8.4 - 10.2 mg/dL 10/27/2019 6:45 PM [facility] Anion Gap 13 8 - 18 10/27/2019 6:45 PM [facility] BUN/Creatinine Ratio 15 7 - 23 10/27/2019 6:45 PM [facility] Osmolality Calculated 289 270 - 300 mOsm/kg 10/27/2019 6:45 PM [facility] eGFR >60 >60 mL/min/1.7 3 m2 10/27/2019 6:45 PM [facility] Blood BLOOD SPECIMEN / Unknown Venipuncture / Unknown 10/27/2019 6:13 PM CRIMINAL RESEARCHER 10/27/2019 6:16 PM CRIMINAL RESEARCHER Tyrone Solis MD LAB - CHEMISTRY ORD ERABLES [address] [phone] * (ABNORMAL) CBC W/O DIFFERENTIAL (10/27/2019 6:12 PM CRIMINAL RESEARCHER) WBC 9.7 3.5 - 10.5 10? 3 /uL 10/27/2019 6:24 PM [facility] RBC 2.93(L) 3.90 - 5.00 10? 6 /uL 10/27/2019 6:24 PM [facility] Hemoglobin 9.0(L) 12.0 - 15.5 g/dL 10/27/2019 6:24 PM [facility] Hematocrit 26.1(L) 35.0 - 45.0 % 10/27/2019 6:24 PM [facility] MCV 89.1 81.0 - 97.0 fL 10/27/2019 6:24 PM [facility] MCH 30.7 28.0 - 34.0 pg 10/27/2019 6:24 PM [facility] MCHC 34.5 32.0 - 36.0 g/dL 10/27/2019 6:24 PM [facility] Platelet Count 94(L) 150 - 400 10? 3 /uL 10/27/2019 6:24 PM [facility] RDW-SD 49.2 36.0 - 50.0 fL 10/27/2019 6:24 PM [facility] RDW-CV 15.0(H) 11.2 - 14.8 % 10/27/2019 6:24 PM [facility] MPV 10.9 9.3 - 12.8 fL 10/27/2019 6:24 PM [facility] nRBC Absolute 0.00 0 10? 3 /uL 10/27/2019 6:24 PM [facility] nRBC Auto 0.0 0 /100 WBC 10/27/2019 6:24 PM [facility] Blood BLOOD SPECIMEN / Unknown Venipuncture / Unknown 10/27/2019 6:12 PM [facility]INAL RESEARCHER 10/27/2019 6:16 PM CRIMINAL RESEARCHER Tyrone Solis MD LAB - HEMATOLOGY OR DERABLES Performing Organization Address City/State/[facility] Co de Phone Number [address] [phone] * (ABNORMAL) BLOOD GASES ARTERIAL (10/27/2019 6:12 PM CRIMINAL RESEARCHER) pH Arterial 7.35 7.35 - 7.45 10/27/2019 6:20 PM [facility] pCO2 Arterial 39 35 - 45 mmHg 10/27/2019 6:20 PM [facility] pO2 Arterial 175 mmHg 10/27/2019 6:20 PM [facility] HCO3 Arterial 20.9(L) 22.0 - 26.0 mmol/L 10/27/2019 6:20 PM [facility] TCO2 Arterial 22.1(L) 25.0 - 29.0 mmol/L 10/27/2019 6:20 PM [facility] Base Excess Arterial -4.2(L) -2.0 - 2.0 mmol/L 10/27/2019 6:20 PM CRIMINAL RESEARCHER [facility] Hemoglobin Arterial 9.3(L) 12.0 - 15.5 g/dL 10/27/2019 6:20 PM CRIMINAL RESEARCHER [facility] Oxyhemoglobin Arterial 97.6 92.0 - 100.0 % 10/27/2019 6:20 PM [facility] Carboxyhemoglobin 0.1 0.0 - 3.0 % 10/27/2019 6:20 PM [facility] Methemoglobin 0.2 0.0 - 2.0 % 10/27/2019 6:20 PM [facility] FI O2 Arterial 40.0 % 10/27/2019 6:20 PM [facility] Blood, arterial ARTERIAL BLOOD SPECIMEN / Unknown Arterial Puncture /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 0.4 0.0 - 6.0 % 10/27/2019 4:30 AM [facility] Basophil % 0.3 0.0 - 1.5 % 10/27/2019 4:30 AM [facility] Neutrophils Absolute 4.4 1.6 - 7.0 10? 3 /uL 10/27/2019 4:30 AM [facility] Lymphocyte Absolute 2.4 0.8 - 2.9 10? 3 /uL 10/27/2019 4:30 AM [facility] Monocytes Absolute 0.38 0.14 - 0.66 10? 3 /uL 10/27/2019 4:30 AM [facility] Eosinophils Absolute 0.03 0.00 - 0.45 10? 3 /uL 10/27/2019 4:30 AM [facility] Basophils Absolute 0.02 0.00 - 0.06 10? 3 /uL 10/27/2019 4:30 AM [facility] Immature Granulocytes % 0.4 0.0 - 1.0 % 10/27/2019 4:30 AM [facility] Blood BLOOD SPECIMEN / Unknown Venipuncture / Unknown 10/27/2019 4:12 AM CRIMINAL RESEARCHER 10/27/2019 4:16 AM [facility] Rio Bhakta MD LAB - HEMATOLOGY ORD ERABLES [facility] [address] [place] [address] * (ABNORMAL) BASIC METABOLIC PANEL (CALCIUM TOTAL) (10/27/2019 4:12 AM [facility]) BUN 14 7 - 26 mg/dL 10/27/2019 4:37 AM [facility] Creatinine 0.7 0.6 - 1.2 mg/dL 10/27/2019 4:37 AM [facility] Sodium 141 136 - 145 mmol/L 10/27/2019 4:37 AM [facility] Potassium 3.5 3.5 - 4.5 mmol/L 10/27/2019 4:37 AM [facility] Chloride 110(H) 98 - 107 mmol/L 10/27/2019 4:37 AM [facility] CO2 19(L) 22 - 29 mmol/L 10/27/2019 4:37 AM [facility] Glucose 223(H) 70 - 115 mg/dL 10/27/2019 4:37 AM [facility] Calcium 7.9(L) 8.4 - 10.2 mg/dL 10/27/2019 4:37 AM [facility] Anion Gap 16 8 - 18 10/27/2019 4:37 AM [facility] BUN/Creatinine Ratio 20 7 - 23 10/27/2019 4:37 AM [facility] Osmolality Calculated 299 270 - 300 mOsm/kg 10/27/2019 4:37 AM [facility] eGFR >60 >60 mL/min/1.7 3 m2 10/27/2019 4:37 AM [facility] Blood BLOOD SPECIMEN / Unknown Venipuncture / Unknown 10/27/2019 4:12 AM CRIMINAL RESEARCHER 10/27/2019 4:16 AM CRIMINAL RESEARCHER Rio Bhakta MD LAB - CHEMISTRY [facility] Organization Address City/State/ZIP Co de Phone Number [address] [phone] * XR CHEST 1VW PORTABLE (10/27/2019 4:05 AM CRIMINAL RESEARCHER) Anatomical Region Laterality Modality Chest Radiographic Radha ging 10/27/2019 8:12 AM CRIMINAL RESEARCHER Impressions 10/27/2019 12:50 PM CRIMINAL RESEARCHER FINDINGS/IMPRESSION: Lines: Endotracheal tube tip projects over the mid thoracic trachea. Enteric tube tip projects over the gastric region. A right internal jugular approach CVC tip terminates over the superior vena cava. There is no focal consolidation, pleural effusion, or pneumothorax. The cardiomediastinal silhouette is normal. Dictated by Leif Smiley MD (human resources vice president). I, Dr. ALMA ROSA CORDON have personally reviewed and interpreted this examination/study. This report was electronically signed by ALMA ROSA CORDON ??on 10/27/2019 12:50 PM . Narrative 10/27/2019 12:50 PM CRIMINAL RESEARCHER EXAMINATION: XR CHEST 1VW PORTABLE, 10/27/2019 4:06 AM HISTORY: T14.90XA: Trauma COMPARISON: Chest x-ray 10/27/2011 5:00 AM. Procedure Note Alma Rosa Cordon DO - 10/27/2019 EXAMINATION: XR CHEST 1VW PORTABLE, 10/27/2019 4:06 AM HISTORY: T14.90XA: Trauma COMPARISON: Chest x-ray 10/27/2011 5:00 AM. FINDINGS/IMPRESSION: Lines: Endotracheal tube tip projects over the mid thoracic trachea. Enteric tube tip projects over the gastric region. A right internal jugular approach CVC tip terminates over the superior vena cava. There is no focal consolidation, pleural effusion, or pneumothorax. The cardiomediastinal silhouette is normal. Dictated by Leif Smiley MD (human resources vice president). I, Dr. ALMA ROSA CORDON have personally reviewed and interpreted this examination/study. This report was electronically signed by ALMA ROSA CORDON on 10/27/2019 12:50 PM . Khadar Alex DO DIAGNOSTIC IMAGING O RDERABLES * (ABNORMAL) BLOOD GASES ART COMPLETE [facility] OR (10/27/2019 3:15 AM [facility]) pH Arterial 7.37 7.35 - 7.45 10/27/2019 3:34 AM [facility] pCO2 Arterial 39 35 - 45 mmHg 10/27/2019 3:34 AM [facility] pO2 Arterial 282 mmHg 10/27/2019 3:34 AM [facility] HCO3 Arterial 21.9(L) 22.0 - 26.0 mmol/L 10/27/2019 3:34 AM [facility] TCO2 Arterial 23.1(L) 25.0 - 29.0 mmol/L 10/27/2019 3:34 AM [facility] Base Excess Arterial -3.2(L) -2.0 - 2.0 mmol/L 10/27/2019 3:34 AM [facility] Hemoglobin Arterial 8.0(L) 12.0 - 15.5 g/dL 10/27/2019 3:34 AM [facility] Oxyhemoglobin Arterial 97.6 92.0 - 100.0 % 10/27/2019 3:34 AM [facility] Carboxyhemoglobin 0.3 0.0 - 3.0 % 10/27/2019 3:34 AM [facility] Methemoglobin 0.6 0.0 - 2.0 % 10/27/2019 3:34 AM [facility] FI O2 Arterial 55.0 % 10/27/2019 3:34 AM [facility] Ionized Calcium Whole Blood 1.06 mmol/L 10/27/2019 3:34 AM [facility] Adjusted Ionized Calcium 1.04(L) 1.19 - 1.34 mmol/L 10/27/2019 3:34 AM [facility] Sodium Whole Blood 132(L) 135 - 145 mmol/L 10/27/2019 3:34 AM [facility] Potassium Whole Blood 3.2(L) 3.5 - 5.5 mmol/L 10/27/2019 3:34 AM [facility] Chloride Whole Blood 108 mmol/L 12/2019 3:34 AM [facility] Glucose Whole Blood 194(H) 70 - 110 mg/dL 10/27/2019 3:34 AM [facility] Lactic Acid Whole Blood 1.4 0.5 - 3.4 mmol/L 10/27/2019 3:34 AM [facility] Blood ARTERIAL BLOOD SPECIMEN / Unknown Venipuncture / Unknown 10/27/2019 3:15 AM [facility] 10/27/2019 3:28 AM [facility] Awilda Gardner MD LAB - BLOOD GASES ORDERABLES Performing Organization Address City/State/[facility] Co de Phone Number [address] [phone] * (ABNORMAL) BLOOD GASES ART COMPLETE [facility] [place] (10/27/2019 2:12 AM [facility]) pH Arterial 7.38 7.35 - 7.45 10/27/2019 2:14 AM [facility] pCO2 Arterial 38 35 - 45 mmHg 10/27/2019 2:14 AM [facility] pO2 Arterial 450 mmHg 10/27/2019 2:14 AM [facility] HCO3 Arterial 21.8(L) 22.0 - 26.0 mmol/L 10/27/2019 2:14 AM [facility] TCO2 Arterial 23.0(L) 25.0 - 29.0 mmol/L 10/27/2019 2:14 AM [facility] Base Excess Arterial -3.0(L) -2.0 - 2.0 mmol/L 10/27/2019 2:14 AM [facility] Hemoglobin Arterial 10.1(L) 12.0 - 15.5 g/dL 10/27/2019 2:14 AM [facility] Oxyhemoglobin Arterial 98.0 92.0 - 100.0 % 10/27/2019 2:14 AM [facility] Carboxyhemoglobin 0.4 0.0 - 3.0 % 10/27/2019 2:14 AM [facility] Methemoglobin 0.4 0.0 - 2.0 % 10/27/2019 2:14 AM [facility] FI O2 Arterial 80.0 % 10/27/2019 2:14 AM [facility] [facility] Ionized Calcium Whole Blood 1.21 mmol/L 10/27/2019 2:14 AM [facility] Adjusted Ionized Calcium 1.20 1.19 - 1.34 mmol/L 10/27/2019 2:14 AM [facility] Sodium Whole Blood 130(L) 135 - 145 mmol/L 10/27/2019 2:14 AM [facility] Potassium Whole Blood 3.2(L) 3.5 - 5.5 mmol/L 10/27/2019 2:14 AM [facility] Chloride Whole Blood 108 mmol/L 12/2019 2:14 AM [facility] Glucose Whole Blood 211(H) 70 - 110 mg/dL 10/27/2019 2:14 AM [facility] Lactic Acid Whole Blood 1.9 0.5 - 3.4 mmol/L 10/27/2019 2:14 AM [facility] Blood ARTERIAL BLOOD SPECIMEN / Unknown Venipuncture / Unknown 10/27/2019 2:12 AM CRIMINAL RESEARCHER 10/27/2019 2:12 AM [facility] Awilda Gardner MD LAB - BLOOD GASES ORDERABLES [facility] [address] [phone] * PREPARE (CROSSMATCH) RBC UNIT(S), 2 Units (10/27/2019 1:43 AM CRIMINAL RESEARCHER) Unit Description LR Red Cells [facility] BLOOD BANK LAB Unit ABO O [facility] BLOOD BANK LAB Unit Rh POS [facility] BLOOD BANK LAB Product Number RA1 [facility] B LOOD BANK LAB Unit Donor # [id number] [facility] BLOOD BANK LAB Unit Status transfused SL BLO OD BANK LAB Product Code [id number] [facility] BLO OD BANK LAB Blood Type Barcode 5100 [facility] BLOOD BANK LAB Unit Description LR Red Cells [facility] BLOOD BANK LAB Unit ABO O [facility] BLOOD BANK LAB Unit Rh POS [facility] BLOOD BANK LAB Product Number RA1 [facility] B LOOD BANK LAB Unit Donor # [id number] [facility] BLOOD BANK LAB Unit Status transfused [facility] BLO OD BANK LAB Product Code [id number] [facility] BLO OD BANK LAB Blood Type Barcode 5100 [facility] BLOOD BANK LAB Blood Bank BLOOD SPECIMEN / Unknown 10/27/2019 1:43 AM CRIMINAL RESEARCHER 10/27/2019 1:43 AM CRIMINAL RESEARCHER Kapil Gonsalves MD LAB - BLOOD BANK ORD ERABLES [facility] BLOOD BANK LAB [address] [place] [address] * PREPARE FFP UNIT(S), 1 Units (10/27/2019 1:43 AM CRIMINAL RESEARCHER) Unit Description Plasma, Thawed [facility] BLOOD BANK LAB Unit ABO A [facility] BLOOD BANK LAB Unit Rh NEG [facility] BLOOD BANK LAB Product Number F00 [facility] B LOOD BANK LAB Unit Donor # [id number] [facility] BLOOD BANK LAB Unit Status transfused [facility] BLO OD BANK LAB Product Code [id number] [facility] BLO OD BANK LAB Blood Type Barcode 0600 [facility] BLOOD BANK LAB Blood Bank BLOOD SPECIMEN / Unknown 10/27/2019 1:43 AM CRIMINAL RESEARCHER 10/27/2019 1:43 AM CRIMINAL RESEARCHER Kapil Gonsalves MD LAB - BLOOD BANK ORD ERABLES [facility] BLOOD BANK LAB [address] [place] [address] * 4 Units (10/27/2019 1:43 AM CRIMINAL RESEARCHER) Unit Description LR Whole Blood [facility] BLOOD BANK LAB Unit ABO O [facility] BLOOD BANK LAB Unit Rh POS [facility] BLOOD BANK LAB Product Number WBL [facility] B LOOD BANK LAB Unit Donor # [id number] [facility] BLOOD BANK LAB Unit Status transfused [facility] BLO OD BANK LAB Product Code [id number] [facility] BLO OD BANK LAB Blood Type Barcode 5100 [facility] BLOOD BANK LAB Unit Description LR Whole Blood [facility] BLOOD [facility] Unit ABO O [facility] BLOOD BANK LAB Unit Rh POS [facility] BLOOD BANK LAB Product Number WBL [facility] B LOOD BANK LAB Unit Donor # [id number] [facility] BLOOD BANK LAB Unit Status transfused [facility] BLO OD BANK LAB Product Code [id number] [facility] BLO OD BANK LAB Blood Type Barcode 5100 [facility] BLOOD BANK LAB Unit Description LR Whole Blood [facility] BLOOD [facility] Unit ABO O [facility] BLOOD BANK LAB Unit Rh POS [facility] BLOOD BANK LAB Product Number WBL [facility] B LOOD BANK LAB Unit Donor # [id number] [facility] BLOOD BANK LAB Unit Status released [facility] BLOO D BANK LAB Product Code [id number] [facility] BLO OD BANK LAB Blood Type Barcode 5100 [facility] BLOOD BANK LAB Unit Description LR Whole Blood [facility] BLOOD BANK LAB Unit ABO O [facility] BLOOD BANK LAB Unit Rh POS [facility] BLOOD BANK LAB Product Number WBL [facility] B LOOD BANK LAB Unit Donor # [id number] [facility] BLOOD BANK LAB Unit Status released [facility] BLOO D BANK LAB Product Code [id number] [facility] BLO OD BANK LAB Blood Type Barcode 5100 [facility] BLOOD BANK LAB Blood Bank BLOOD SPECIMEN / Unknown 10/27/2019 1:43 AM CRIMINAL RESEARCHER 10/27/2019 1:43 AM CRIMINAL RESEARCHER Sam Landry MD LAB - BLOOD BANK OR DERABLES [facility] BLOOD BANK LAB [address] * PREPARE PLATELET PHERESIS UNIT(S), 1 Units (10/27/2019 1:43 AM CRIMINAL RESEARCHER) Unit Description PL Pheres LR IRR [facility] BLOOD BANK LAB Unit ABO A [facility] BLOOD [facility]ANK LAB Unit Rh NEG [facility] BLOOD BANK LAB Product Number P6 [facility] B LOOD BANK LAB Unit Donor # [id number] 3 [facility] BLOOD BANK LAB Unit Status released [facility] BLOO D BANK LAB Product Code [id number] [facility] BLO OD BANK LAB Blood Type Barcode 0600 [facility] BLOOD BANK LAB Blood Bank BLOOD SPECIMEN / Unknown 10/27/2019 1:43 AM CRIMINAL RESEARCHER 10/27/2019 1:43 AM CRIMINAL RESEARCHER Fiorella Jaffe MD LAB - BLOOD BANK ORD ERABLES [facility] BLOOD BANK LAB [address] * PREPARE FFP UNIT(S), 6 Units (10/27/2019 1:43 AM CRIMINAL RESEARCHER) Unit Description Plasma, Thawed [facility] BLOOD BANK LAB Unit ABO AB [facility] BLOOD BANK LAB Unit POS [facility] BLOOD BANK LAB Product [facility] FF1 [facility] B LOOD BANK LAB Unit Donor # [id number] [facility] BLOOD BANK LAB Unit Status released [facility] BLOO D BANK LAB Product Code [id number] [facility] OD BANK LAB Blood Type Barcode 8400 [facility] BLOOD BANK LAB Unit Description Plasma, Thawed [facility] BLOOD BANK LAB Unit ABO AB [facility] BLOOD BANK LAB Unit Rh POS [facility] BLOOD BANK LAB Product Number FF1 [facility] B LOOD BANK LAB Unit Donor # [id number] 6 [facility] BLOOD BANK LAB Unit Status released [facility] BLOO D BANK LAB Product Code [id number] [facility] OD [facility] LAB Blood Type Barcode 8400 [facility] BLOOD BANK LAB Unit Description Plasma, Thawed [facility] BLOOD BANK LAB Unit ABO AB [facility] BLOOD BANK LAB Unit Rh POS [facility] BLOOD BANK LAB Product Number F00 [facility] B LOOD BANK LAB Unit Donor # [id number] 5 [facility] BLOOD BANK LAB Unit Status released [facility] BLOO D BANK LAB Product Code [id number] [facility] LAB Blood Type Barcode 8400 [facility] BLOOD BANK LAB Unit Description Plasma, Thawed [facility] BLOOD BANK LAB Unit ABO AB [facility] BLOOD BANK LAB Unit Rh POS [facility] BLOOD BANK LAB Product Number F00 [facility] B LOOD BANK LAB Unit Donor # [id number] 5 [facility] BLOOD BANK LAB Unit Status released [facility] BLOO D BANK LAB Product Code [id number] [facility] OD [facility]ANK LAB Blood Type Barcode 8400 [facility] BLOOD BANK LAB Blood Bank BLOOD SPECIMEN / Unknown 10/27/2019 1:43 AM CRIMINAL RESEARCHER 10/27/2019 1:43 AM CRIMINAL RESEARCHER Fiorella Jaffe MD LAB - BLOOD BANK ORD ERABLES [facility] BLOOD BANK LAB [address] * PREPARE (CROSSMATCH) RBC UNIT(S), 6 Units (10/27/2019 1:43 AM CRIMINAL RESEARCHER) Unit Description LR Red Cells [facility] BLOOD BANK LAB Unit ABO O [facility] BLOOD BANK LAB Unit NEG [facility] BLOOD BANK LAB Product Number RL1 [facility] B LOOD BANK LAB Unit Donor # [id number] 7 [facility] BLOOD BANK LAB Unit Status released [facility] BLOO D BANK LAB Product Code [id number] [facility] BLO OD BANK LAB Blood Type Barcode 9500 [facility] BLOOD BANK LAB Unit Description LR Red Cells [facility] BLOOD [facility] Unit ABO O [facility] BLOOD BANK LAB Unit NEG [facility] BLOOD BANK LAB Product Number RL7 [facility] B LOOD BANK LAB Unit Donor # [id number] [facility] BLOOD BANK LAB Unit Status released [facility] BLOO D BANK LAB Product [facility] [id number] [facility] Blood Type Barcode 9500 [facility] BLOOD BANK LAB Unit Description LR Red Cells [facility] BLOOD BANK LAB Unit ABO O [facility] BLOOD BANK LAB Unit NEG [facility] BLOOD BANK LAB Product [facility] RA1 [facility] B LOOD BANK LAB Unit Donor [facility] [id number] [facility] BLOOD [facility]ANK LAB Unit Status released [facility] BLOO D BANK LAB Product [facility] [id number] [facility] BLO OD BANK LAB Blood Type Barcode 9500 [facility] BLOOD BANK LAB Unit Description LR Red Cells [facility] BLOOD BANK LAB Unit ABO O [facility] BLOOD BANK LAB Unit NEG [facility] BLOOD BANK LAB Product Number RL1 [facility] B LOOD BANK LAB Unit Donor # [id number] 5 [facility] BLOOD BANK LAB Unit Status released [facility] BLOO D BANK LAB Product [facility] [id number] [facility] OD [facility] LAB Blood Type Barcode 9500 [facility] BLOOD BANK LAB Unit Description LR Red Cells [facility] BLOOD BANK LAB Unit ABO O [facility] BLOOD BANK LAB Unit NEG [facility] BLOOD BANK LAB Product [facility] RA2 [facility] B LOOD BANK LAB Unit Donor # [id number] [facility] BLOOD BANK LAB Unit Status released [facility] BLOO D BANK LAB Product [facility] [id number] [facility] BLO OD BANK LAB Blood Type Barcode 9500 [facility] BLOOD [facility]ANK LAB Unit Description LR Red Cells [facility] BLOOD BANK LAB Unit ABO O [facility] BLOOD BANK LAB Unit Rh NEG [facility] BLOOD BANK LAB Product Number RL1 [facility] B LOOD BANK LAB Unit Donor # [id number] 0 [facility] BLOOD [facility]ANK LAB Unit Status released [facility] BLOO D BANK LAB Product Code [id number] [facility] BLO OD BANK LAB Blood Type Barcode 9500 [facility] BLOOD BANK LAB Blood Bank BLOOD SPECIMEN / Unknown 10/27/2019 1:43 AM CRIMINAL RESEARCHER 10/27/2019 1:43 AM CRIMINAL RESEARCHER Fiorella Jaffe MD LAB - BLOOD BANK ORD ERABLES [facility] BLOOD BANK LAB [address] * (ABNORMAL) BLOOD GASES ART COMPLETE [facility] OR (10/27/2019 1:33 AM CRIMINAL RESEARCHER) pH Arterial 7.39 7.35 - 7.45 10/27/2019 1:40 AM [facility] pCO2 Arterial 30(L) 35 - 45 mmHg 10/27/2019 1:40 AM [facility] pO2 Arterial 311 mmHg 10/27/2019 1:40 AM [facility] HCO3 Arterial 18.0(L) 22.0 - 26.0 mmol/L 10/27/2019 1:40 AM [facility] TCO2 Arterial 19.0(L) 25.0 - 29.0 mmol/L 10/27/2019 1:40 AM [facility] Base Excess Arterial -6.0(L) -2.0 - 2.0 mmol/L 10/27/2019 1:40 AM [facility] Hemoglobin Arterial 10.3(L) 12.0 - 15.5 g/dL 10/27/2019 1:40 AM [facility] Oxyhemoglobin Arterial 97.2 92.0 - 100.0 % 10/27/2019 1:40 AM [facility] Carboxyhemoglobin 1.4 0.0 - 3.0 % 10/27/2019 1:40 AM [facility] Methemoglobin 0.2 0.0 - 2.0 % 10/27/2019 1:40 AM [facility] FI O2 Arterial 99.0 % 10/27/2019 1:40 AM [facility] Ionized Calcium Whole Blood 0.97 mmol/L 10/27/2019 1:40 AM [facility] Adjusted Ionized Calcium 0.96(L) 1.19 - 1.34 mmol/L 10/27/2019 1:40 AM [facility] Sodium Whole Blood 133(L) 135 - 145 mmol/L 10/27/2019 1:40 AM [facility] Potassium Whole Blood 2.7(LL) 3.5 - 5.5 mmol/L 10/27/2019 1:40 AM [facility] Chloride Whole Blood 109 mmol/L 12/2019 1:40 AM [facility] Glucose Whole Blood 179(H) 70 - 110 mg/dL 10/27/2019 1:40 AM [facility] Lactic Acid Whole Blood 2.4 0.5 - 3.4 mmol/L 10/27/2019 1:40 AM [facility] Blood ARTERIAL BLOOD SPECIMEN / Unknown Venipuncture / Unknown 10/27/2019 1:33 AM CRIMINAL RESEARCHER 10/27/2019 1:38 AM CRIMINAL RESEARCHER Awilda Gardner MD LAB - BLOOD GASES ORDERABLES Performing Organization Address City/[facility]/ZIP Co de Phone Number [address] [phone] * TYPE + SCREEN PANEL (10/27/2019 1:20 AM CRIMINAL RESEARCHER) Antibody Screen NEG 0 2:23 AM [facility] BLOOD BANK LAB ABO Rh O POS 10/27/2019 2:23 AM [facility] B[facility]OD [facility] LAB Blood Bank BLOOD SPECIMEN / Unknown Venipuncture / Unknown 10/27/2019 1:20 AM CRIMINAL RESEARCHER 10/27/2019 1:26 AM CRIMINAL RESEARCHER Rio Bhakta MD LAB - BLOOD BANK ORD ERABLES [facility] BLOOD BANK LAB [address] * (ABNORMAL) DIFFERENTIAL MANUAL (10/27/2019 1:19 AM CRIMINAL RESEARCHER) WBC (corrected for NRBC) 12.9 10? 3 /uL 10/27/2019 1:59 AM [facility] Total Cell Count 100 10/27/2019 1:59 AM [facility] Neutrophils Absolute Manual 7.10(H) 1.60 - 7.00 10? 3 /uL 10/27/2019 1:59 AM [facility] Comment:(BANDS+SEGS) x WBC = NEUT # (ANC) Lymphocyte Absolute Manual 4.64(H) 0.80 - 2.90 10? 3 /uL 10/27/2019 1:59 AM [facility] Monocytes Absolute Manual 1.03(H) 0.14 - 0.66 10? 3 /uL 10/27/2019 1:59 AM [facility] Eosinophils Absolute Manual 0.13 0.00 - 0.22 10? 3 /uL 10/27/2019 1:59 AM [facility] Neutrophil % Manual 55 30 - 60 % 10/27/2019 1:59 AM [facility] Lymphocyte % Manual 36 20 - 45 % 10/27/2019 1:59 AM [facility] Monocytes % Manual 8 2 - 10 % 10/27/2019 1:59 AM [facility] Eosinophils % Manual 1 1 - 6 % 10/27/2019 1:59 AM [facility] Platelet Estimate Adequate Adequate 10/27/2019 1:59 AM [facility] RBC Morphology Normal 10/27/2019 1:59 AM [facility] Blood BLOOD SPECIMEN / Unknown Venipuncture / Unknown 10/27/2019 1:19 AM CRIMINAL RESEARCHER 10/27/2019 1:22 AM CRIMINAL RESEARCHER Rio Bhakta MD LAB - HEMATOLOGY ORD ERABLES [place] [address] [phone] * PTT [facility] (10/27/2019 1:19 AM CRIMINAL RESEARCHER) APTT 25.9 23.0 - 38.4 Seconds 10/27/2019 1:38 AM [facility] Comment:Suggested therapeuti c range for full dose I.V. unfractionated heparin therapy for venous thromboembolism is 71 to 109 seconds. Blood BLOOD SPECIMEN / Unknown Venipuncture / Unknown 10/27/2019 1:19 AM CRIMINAL RESEARCHER 10/27/2019 1:22 AM CRIMINAL RESEARCHER Rio Bhakta MD LAB - COAGULATION OR DERABLES Performing Organization Address [facility] de Phone Number [address] [phone] * PT-INR [facility] (10/27/2019 1:19 AM CRIMINAL RESEARCHER) Pathologist [facility] PT 13.6 12.1 - 14.8 Seconds 10/27/2019 1:37 AM [facility] INR 1.1 See Comment 10/27/2019 1:37 AM [facility] Comment:The suggested therap eutic range for standard coumadin (warfarin) therapy is an INR of 2.0-3.0. For high-risk patients (Mechanical Mitral Valve Prosthesis, etc.), the suggested prophylactic therapeutic range is an INR of 2.5-3.5. Blood BLOOD SPECIMEN / Unknown Venipuncture / Unknown 10/27/2019 1:19 AM CRIMINAL RESEARCHER 10/27/2019 1:22 AM CRIMINAL RESEARCHER Rio Bhakta MD LAB - COAGULATION OR DERABLES Performing Organization Address [facility] de Phone Number [address] [phone] * HCG BETA BLOOD QUANTITATIVE (10/27/2019 1:19 AM [facility]) Beta-hCG Total Quantitative <2 <5 mIU/mL 10/27/2019 1:45 AM [facility] Comment: This assay is cleared for [...] Unknown Venipuncture / Unknown 10/27/2019 1:19 AM CRIMINAL RESEARCHER 10/27/2019 1:22 AM [facility] Rio Bhakta MD LAB - CHEMISTRY ANGELA JONES Performing Organization Address [facility]/State/[facility] Co de Phone Number [facility] [address] [place] [address] * (ABNORMAL) COMPREHENSIVE METABOLIC PANEL (10/27/2019 1:19 AM [facility]) BUN 14 7 - 26 mg/dL 10/27/2019 1:42 AM [facility] Creatinine 0.8 0.6 - 1.2 mg/dL 10/27/2019 1:42 AM [facility] Sodium 141 136 - 145 mmol/L 10/27/2019 1:42 AM [facility] Potassium 2.7(LL) 3.5 - 4.5 mmol/L 10/27/2019 1:42 AM [facility] Chloride 108(H) 98 - 107 mmol/L 10/27/2019 1:42 AM [facility] CO2 19(L) 22 - 29 mmol/L 10/27/2019 1:42 AM [facility] Glucose 173(H) 70 - 115 mg/dL 10/27/2019 1:42 AM [facility] Calcium 8.4 8.4 - 10.2 mg/dL 10/27/2019 1:42 AM [facility] Protein Total 6.1 6.0 - 8.3 g/dL 10/27/2019 1:42 AM [facility] Albumin 3.7 3.4 - 5.0 g/dL 10/27/2019 1:42 AM [facility] Bilirubin Total 0.5 0.2 - 1.2 mg/dL 10/27/2019 1:42 AM [facility] Alkaline Phosphatase 44 40 - 150 Units/L 10/27/2019 1:42 AM [facility] ALT 18 0 - 55 Units/L 10/27/2019 1:42 AM [facility] AST 33 5 - 34 Units/L 10/27/2019 1:42 AM [facility] Anion Gap 17 8 - 18 10/27/2019 1:42 AM [facility] BUN/Creatinine Ratio 18 7 - 23 10/27/2019 1:42 AM [facility] Osmolality Calculated 297 270 - 300 mOsm/kg 10/27/2019 1:42 AM [facility] Albumin/Globulin Ratio 1.5 1.1 - 2.3 10/27/2019 1:42 AM [facility] eGFR >60 >60 mL/min/1.7 3 m2 10/27/2019 1:42 AM [facility] Blood BLOOD SPECIMEN / Unknown Venipuncture / Unknown 10/27/2019 1:19 AM [facility] 10/27/2019 1:22 AM [facility] Rio Bhakta MD LAB - CHEMISTRY [facility] Organization Address City/State/[facility] Co de Phone Number [address] [phone] * (ABNORMAL) CBC W AUTO DIFFERENTIAL (10/27/2019 1:19 AM [facility]) WBC 12.9(H) 3.5 - 10.5 10? 3 /uL 10/27/2019 1:27 AM [facility] [facility] RBC 3.32(L) 3.90 - 5.00 10? 6 /uL 10/27/2019 1:27 AM [facility] Hemoglobin 10.5(L) 12.0 - 15.5 g/dL 10/27/2019 1:27 AM [facility] Hematocrit 32.1(L) 35.0 - 45.0 % 10/27/2019 1:27 AM [facility] MCV 96.7 81.0 - 97.0 fL 10/27/2019 1:27 AM [facility] MCH 31.6 28.0 - 34.0 pg 10/27/2019 1:27 AM [facility] MCHC 32.7 32.0 - 36.0 g/dL 10/27/2019 1:27 AM [facility] Platelet Count 251 150 - 400 10? 3 /uL 10/27/2019 1:27 AM [facility] RDW-SD 41.3 36.0 - 50.0 fL 10/27/2019 1:27 AM [facility] RDW-CV 11.8 11.2 - 14.8 % 10/27/2019 1:27 AM [facility] MPV 10.7 9.3 - 12.8 fL 10/27/2019 1:27 AM [facility] nRBC Absolute 0.00 0 10? 3 /uL 10/27/2019 1:27 AM [facility] nRBC Auto 0.0 0 /100 WBC 10/27/2019 1:27 AM [facility] Blood BLOOD SPECIMEN / Unknown Venipuncture / Unknown 10/27/2019 1:19 AM [facility] 10/27/2019 1:22 AM CRIMINAL RESEARCHER Rio Bhakta MD LAB - HEMATOLOGY ORD ERABLES Performing Organization Address City/[facility]/ZIP Co de Phone Number [address] [phone] * ALCOHOL ETHYL BLOOD (10/27/2019 1:19 AM CRIMINAL RESEARCHER) Interpretation Ethanol None Detected None Detected mg/dL 10/27/2019 1:39 AM [facility] Comment:Ethanol levels less than 10 mg/dL are resulted as None detected . Blood BLOOD SPECIMEN / Unknown Venipuncture / Unknown 10/27/2019 1:19 AM CRIMINAL RESEARCHER 10/27/2019 1:22 AM CRIMINAL RESEARCHER Rio Bhakta MD LAB - CHEMISTRY ORDE RABFRANDY [address] [phone] * XR CHEST 1VW PORTABLE (10/27/2019 1:17 AM CRIMINAL RESEARCHER) Anatomical Region Laterality Modality Chest Radiographic Radha ging 10/27/2019 8:12 AM CRIMINAL RESEARCHER Impressions 10/27/2019 12:49 PM CRIMINAL RESEARCHER IMPRESSION: No acute pulmonary process. Dictated by Lakisha Power MD (human resources vice president). I, Dr. ALMA ROSA CORDON have personally reviewed and interpreted this examination/study. This report was electronically signed by ALMA ROSA CORDON ??on 10/27/2019 12:49 PM . Narrative 10/27/2019 12:49 PM CRIMINAL RESEARCHER EXAMINATION: XR CHEST 1VW PORTABLE HISTORY: T14.90XA: Trauma COMPARISON: No prior study is available for comparison. FINDINGS: There is mild elevation of the right hemidiaphragm. There is no focal consolidation, pleural effusion, or pneumothorax. The cardiomediastinal silhouette is normal. The visible bony thorax is intact. Procedure Note Alma Rosa Cordon DO - 10/27/2019 EXAMINATION: XR CHEST 1VW PORTABLE HISTORY: T14.90XA: Trauma COMPARISON: No prior study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
--- OUTSIDE RECORDS SUMMARY | 2024-08-30 02:58 | XMS_ITS | Encounter Summary ---
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 AM CDT 10/31/2019 6:58 AM CDT Kapil Gonsalves MD LAB - CHEMISTRY ANGELA JONES [facility] [address] [phone] * PT-INR [facility] (10/31/2019 6:44 AM CDT) Pathologist [facility] PT 14.2 12.1 - 14.8 Seconds 10/31/2019 7:19 AM CDT [facility] INR 1.1 See Comment 10/31/2019 7:19 AM CDT [facility] Comment:The suggested therap eutic range for standard coumadin (warfarin) therapy is an INR of 2.0-3.0. For high-risk patients (Mechanical Mitral Valve Prosthesis, etc.), the suggested prophylactic therapeutic range is an INR of 2.5-3.5. Blood BLOOD SPECIMEN / Unknown Lab Venipuncture / Unknown 10/31/2019 6:44 AM CDT 10/31/2019 6:58 AM CDT Nano Garces MD LAB - COAGULATI ON ORDERABLES Performing Organization Address [facility]/ZIP Co de Phone Number [address] [phone] * PHOSPHORUS BLOOD (10/31/2019 6:44 AM CDT) Phosphorus 2.3 2.3 - 4.7 mg/dL 10/31/2019 7:31 AM CDT [facility] Blood BLOOD SPECIMEN / Unknown Lab Venipuncture / Unknown 10/31/2019 6:44 AM CDT 10/31/2019 6:58 AM CDT Nano Garces MD LAB - CHEMISTRY ORDERABLES Performing Organization Address [facility] Co de Phone Number [address] [phone] * MAGNESIUM BLOOD (10/31/2019 6:44 AM CDT) Magnesium 1.7 1.6 - 2.6 mg/dL 10/31/2019 7:31 AM CDT [facility] Blood BLOOD SPECIMEN / Unknown Lab Venipuncture / Unknown 10/31/2019 6:44 AM CDT 10/31/2019 6:58 AM CDT Nano Garces MD LAB - CHEMISTRY ORDERABLES [facility] [address] [phone] * XR ABDOMEN KUB PORTABLE (10/30/2019 1:11 PM CDT) Anatomical Region Laterality Modality Abdomen Radiographic Radha ging 10/30/2019 1:12 PM CDT Impressions 10/31/2019 12:54 PM CDT IMPRESSION: The NG tube terminates in the gastric body. Dictated by Lakisha Power M.D. (residential program manager) [place], Dr. SLICK GREENBERG have personally [...] body. Dictated by Lakisha Power M.D. (residential program manager) [place], Dr. SLICK GREENBERG have personally reviewed and interpreted this examination/study. This report was electronically signed by SLICK GREENBERG on 10/31/2019 12:54 PM . Tyrone Solis MD DIAGNOSTIC IMAGING ORDERABLES * (ABNORMAL) CBC W AUTO DIFFERENTIAL (10/30/2019 10:54 AM CDT) WBC 10.7(H) 3.5 - 10.5 10? 3 /uL 10/30/2019 11:02 AM CDT [facility] RBC 2.33(L) 3.90 - 5.00 10? 6 /uL 10/30/2019 11:02 AM CDT [facility] Hemoglobin 7.1(L) 12.0 - 15.5 g/dL 10/30/2019 11:02 AM CDT [facility] Hematocrit 20.9(L) 35.0 - 45.0 % 10/30/2019 11:02 AM [facility] MCV 89.7 81.0 - 97.0 fL 10/30/2019 11:02 AM [facility] MCH 30.5 28.0 - 34.0 pg 10/30/2019 11:02 AM [facility] MCHC 34.0 32.0 - 36.0 g/dL 10/30/2019 11:02 AM [facility] Platelet Count 158 150 - 400 10? 3 /uL 10/30/2019 11:02 AM [facility] RDW-SD 45.3 36.0 - 50.0 fL 10/30/2019 11:02 AM [facility] RDW-CV 13.9 11.2 - 14.8 % 10/30/2019 11:02 AM [facility] MPV 10.4 9.3 - 12.8 fL 10/30/2019 11:02 AM [facility] nRBC Absolute 0.00 0 10? 3 /uL 10/30/2019 11:02 AM [facility] nRBC Auto 0.0 0 /100 WBC 10/30/2019 11:02 AM [facility] Neutrophils % 80.0(H) 35.0 - 70.0 % 10/30/2019 11:02 AM [facility] Lymphocytes % 9.7(L) 19.7 - 55.1 % 10/30/2019 11:02 AM [facility] Monocytes % 6.4 3.0 - 15.0 % 10/30/2019 11:02 AM [facility] Eosinophils % 3.1 0.0 - 6.0 % 10/30/2019 11:02 AM [facility] Basophil % 0.2 0.0 - 1.5 % 10/30/2019 11:02 AM [facility] Neutrophils Absolute 8.6(H) 1.6 - 7.0 10? 3 /uL 10/30/2019 11:02 AM [facility] Lymphocyte Absolute 1.0 0.8 - 2.9 10? 3 /uL 10/30/2019 11:02 AM [facility] Monocytes Absolute 0.68(H) 0.14 - 0.66 10? 3 /uL 10/30/2019 11:02 AM [facility] Eosinophils Absolute 0.33 0.00 - 0.45 10? 3 /uL 10/30/2019 11:02 AM CDT [facility] Basophils Absolute 0.02 0.00 - 0.06 10? 3 /uL 10/30/2019 11:02 AM CDT [facility] Immature Granulocytes % 0.6 0.0 - 1.0 % 10/30/2019 11:02 AM [facility] Blood BLOOD SPECIMEN / Unknown Venipuncture / Unknown 10/30/2019 10:54 AM CDT 10/30/2019 10:58 AM CDT Tyrone Solis MD LAB - HEMATOLOGY OR DERABLES Performing Organization Address City/State/[facility] Co de Phone Number [facility] [address] [phone] * (ABNORMAL) CBC W/O DIFFERENTIAL (10/30/2019 1:05 AM [facility]) WBC 12.2(H) 3.5 - 10.5 10? 3 /uL 10/30/2019 1:13 AM [facility] RBC 2.27(L) 3.90 - 5.00 10? 6 /uL 10/30/2019 1:13 AM [facility] Hemoglobin 7.0(L) 12.0 - 15.5 g/dL 10/30/2019 1:13 AM [facility] Hematocrit 20.4(L) 35.0 - 45.0 % 10/30/2019 1:13 AM [facility] MCV 89.9 81.0 - 97.0 fL 10/30/2019 1:13 AM [facility] MCH 30.8 28.0 - 34.0 pg 10/30/2019 1:13 AM [facility] MCHC 34.3 32.0 - 36.0 g/dL 10/30/2019 1:13 AM [facility] Platelet Count 138(L) 150 - 400 10? 3 /uL 10/30/2019 1:13 AM [facility] RDW-SD 46.6 36.0 - 50.0 fL 10/30/2019 1:13 AM [facility] RDW-CV 14.2 11.2 - 14.8 % 10/30/2019 1:13 AM [facility] MPV 10.4 9.3 - 12.8 fL 10/30/2019 1:13 AM [facility] nRBC Absolute 0.00 0 10? 3 /uL 10/30/2019 1:13 AM [facility] nRBC Auto 0.0 0 /100 WBC 10/30/2019 1:13 AM [facility] Blood BLOOD SPECIMEN / Unknown Venipuncture / Unknown 10/30/2019 1:05 AM [employer] 10/30/2019 1:08 AM [employer] Kapil Gonsalves MD LAB - HEMATOLOGY ORD ERABLES [facility] [address] [phone] * (ABNORMAL) BASIC METABOLIC PANEL (CALCIUM TOTAL) (10/29/2019 11:38 PM [employer]) BUN 2(L) 7 - 26 mg/dL 10/30/2019 12:03 AM [facility] Creatinine 0.7 0.6 - 1.2 mg/dL 10/30/2019 12:03 AM [facility] Sodium 135(L) 136 - 145 mmol/L 10/30/2019 12:03 AM [facility] Potassium 3.4(L) 3.5 - 4.5 mmol/L 10/30/2019 12:03 AM [facility] Chloride 108(H) 98 - 107 mmol/L 10/30/2019 12:03 AM [facility] CO2 21(L) 22 - 29 mmol/L 10/30/2019 12:03 AM [facility] Glucose 115 70 - 115 mg/dL 10/30/2019 12:03 AM [facility] Calcium 7.7(L) 8.4 - 10.2 mg/dL 10/30/2019 12:03 AM [facility] Anion Gap 9 8 - 18 10/30/2019 12:03 AM [facility] BUN/Creatinine Ratio 3(L) 7 - 23 10/30/2019 12:03 AM [facility] Osmolality Calculated 277 270 - 300 mOsm/kg 10/30/2019 12:03 AM [facility] eGFR >60 >60 mL/min/1.7 3 m2 10/30/2019 12:03 AM [facility] Blood BLOOD SPECIMEN / Unknown Venipuncture / Unknown 10/29/2019 11:38 PM [employer] 10/29/2019 11:44 PM [employer] Kapil Gonsalves MD LAB - CHEMISTRY ANGELA JONES Performing Organization Address [facility] Co de Phone Number [address] [phone] * PT-INR [facility] (10/29/2019 11:38 PM [employer]) PT 14.8 12.1 - 14.8 Seconds 10/30/2019 12:20 AM [facility] INR 1.2 See Comment 10/30/2019 12:20 AM [facility] Comment:The suggested therap eutic range for standard coumadin (warfarin) therapy is an INR of 2.0-3.0. For high-risk patients (Mechanical Mitral Valve Prosthesis, etc.), the suggested prophylactic therapeutic range is an INR of 2.5-3.5. Blood BLOOD SPECIMEN / Unknown Venipuncture / Unknown 10/29/2019 11:38 PM [employer] 10/29/2019 11:44 PM [employer] Nano Garces MD LAB - COAGULATI ON ORDERABLES Performing Organization Address [facility] Co de Phone Number [address] [phone] * (ABNORMAL) PHOSPHORUS BLOOD (10/29/2019 11:38 PM [employer]) Phosphorus 2.0(L) 2.3 - 4.7 mg/dL 10/30/2019 12:03 AM [facility] Blood BLOOD SPECIMEN / Unknown Venipuncture / Unknown 10/29/2019 11:38 PM [employer] 10/29/2019 11:44 PM [employer] Nano Garces MD LAB - CHEMISTRY ORDERABLES [address] [phone] * MAGNESIUM BLOOD (10/29/2019 11:38 PM [employer]) Pathologist [facility] Magnesium 1.8 1.6 - 2.6 mg/dL 10/30/2019 12:03 AM [facility] Blood BLOOD SPECIMEN / Unknown Venipuncture / Unknown 10/29/2019 11:38 PM [employer] 10/29/2019 11:44 PM [employer] Nano Garces MD LAB - CHEMISTRY ORDERABLES Performing Organization Address [facility]/ZIP Co de Phone Number [address] [phone] * (ABNORMAL) CBC W/O DIFFERENTIAL (10/29/2019 1:03 PM [employer]) [facility] WBC 12.3(H) 3.5 - 10.5 10? 3 /uL 10/29/2019 1:41 PM [facility] RBC 2.28(L) 3.90 - 5.00 10? 6 /uL 10/29/2019 1:41 PM [facility] Hemoglobin 7.0(L) 12.0 - 15.5 g/dL 10/29/2019 1:41 PM [facility] Hematocrit 20.8(L) 35.0 - 45.0 % 10/29/2019 1:41 PM [facility] MCV 91.2 81.0 - 97.0 fL 10/29/2019 1:41 PM [facility] MCH 30.7 28.0 - 34.0 pg 10/29/2019 1:41 PM [facility] MCHC 33.7 32.0 - 36.0 g/dL 10/29/2019 1:41 PM [facility] Platelet Count 118(L) 150 - 400 10? 3 /uL 10/29/2019 1:41 PM [facility] RDW-SD 49.7 36.0 - 50.0 fL 10/29/2019 1:41 PM [facility] RDW-CV 14.8 11.2 - 14.8 % 10/29/2019 1:41 PM [facility] MPV 11.1 9.3 - 12.8 fL 10/29/2019 1:41 PM [facility] nRBC Absolute 0.00 0 10? 3 /uL 10/29/2019 1:41 PM [facility] nRBC Auto 0.0 0 /100 WBC 10/29/2019 1:41 PM [facility] Blood BLOOD SPECIMEN / Unknown Venipuncture / Unknown 10/29/2019 1:03 PM [employer] 10/29/2019 1:17 PM [employer] Tyrone Solis MD LAB - HEMATOLOGY OR DERABLES [address] [phone] * (ABNORMAL) BLOOD GASES ARTERIAL (10/29/2019 1:03 PM [employer]) pH Arterial 7.37 7.35 - 7.45 10/29/2019 1:20 PM [facility] pCO2 Arterial 31(L) 35 - 45 mmHg 10/29/2019 1:20 PM [facility] pO2 Arterial 130(H) 82 - 106 mmHg 10/29/2019 1:20 PM [facility] HCO3 Arterial 17.7(L) 22.0 - 26.0 mmol/L 10/29/2019 1:20 PM [facility] TCO2 Arterial 18.7(L) 25.0 - 29.0 mmol/L 10/29/2019 1:20 PM [facility] Base Excess Arterial -6.6(L) -2.0 - 2.0 mmol/L 10/29/2019 1:20 PM [facility] Hemoglobin Arterial 11.7(L) 12.0 - 15.5 g/dL 10/29/2019 1:20 PM [facility] Oxyhemoglobin Arterial 97.1 95.0 - 100.0 % 10/29/2019 1:20 PM [facility] Carboxyhemoglobin 0.3 0.0 - 3.0 % 10/29/2019 1:20 PM [facility] Methemoglobin 0.4 0.0 - 2.0 % 10/29/2019 1:20 PM [facility] FI O2 Arterial 50.0 % 10/29/2019 1:20 PM [facility] Blood, arterial ARTERIAL BLOOD SPECIMEN / Unknown Arterial Puncture / Unknown 10/29/2019 1:03 PM [employer] 10/29/2019 1:17 PM [employer] Tyrone Solis MD LAB - BLOOD GASES O RDERABLES [facility] [address] [place] [address] * (ABNORMAL) BASIC METABOLIC PANEL (CALCIUM TOTAL) (10/29/2019 1:03 PM [facility] [place]) BUN 4(L) 7 - 26 mg/dL 10/29/2019 1:38 PM [facility] Creatinine 0.7 0.6 - 1.2 mg/dL 10/29/2019 1:38 PM [facility] Sodium 138 136 - 145 mmol/L 10/29/2019 1:38 PM [facility] Potassium 3.5 3.5 - 4.5 mmol/L 10/29/2019 1:38 PM [facility] Chloride 109(H) 98 - 107 mmol/L 10/29/2019 1:38 PM [facility] CO2 20(L) 22 - 29 mmol/L 10/29/2019 1:38 PM [facility] Glucose 97 70 - 115 mg/dL 10/29/2019 1:38 PM [facility] Calcium 7.6(L) 8.4 - 10.2 mg/dL 10/29/2019 1:38 PM [facility] Anion Gap 13 8 - 18 10/29/2019 1:38 PM [facility] BUN/Creatinine Ratio 6(L) 7 - 23 10/29/2019 1:38 PM [facility] Osmolality Calculated 283 270 - 300 mOsm/kg 10/29/2019 1:38 PM [facility] eGFR >60 >60 mL/min/1.7 3 m2 10/29/2019 1:38 PM [facility] Blood BLOOD SPECIMEN / Unknown Venipuncture / Unknown 10/29/2019 1:03 PM [facility] RETIREMENT PLAN SPECIALIST 10/29/2019 1:17 PM FINANCIAL RETIREMENT PLAN SPECIALIST Tyrone Solis MD LAB - CHEMISTRY ORD ERABLES [facility] [address] [place] [address], [facility] [phone] * (ABNORMAL) CBC W/O DIFFERENTIAL (10/29/2019 6:31 AM FINANCIAL RETIREMENT PLAN SPECIALIST) WBC 14.0(H) 3.5 - 10.5 10? 3 /uL 10/29/2019 6:55 AM [facility] RBC 2.39(L) 3.90 - 5.00 10? 6 /uL 10/29/2019 6:55 AM [facility] Hemoglobin 7.4(L) 12.0 - 15.5 g/dL 10/29/2019 6:55 AM [facility] Hematocrit 21.8(L) 35.0 - 45.0 % 10/29/2019 6:55 AM [facility] MCV 91.2 81.0 - 97.0 fL 10/29/2019 6:55 AM [facility] MCH 31.0 28.0 - 34.0 pg 10/29/2019 6:55 AM [facility] MCHC 33.9 32.0 - 36.0 g/dL 10/29/2019 6:55 AM [facility] Platelet Count 112(L) 150 - 400 10? 3 /uL 10/29/2019 6:55 AM [facility] RDW-SD 51.0(H) 36.0 - 50.0 fL 10/29/2019 6:55 AM [facility] RDW-CV 15.2(H) 11.2 - 14.8 % 10/29/2019 6:55 AM [facility] MPV 11.1 9.3 - 12.8 fL 10/29/2019 6:55 AM [facility] nRBC Absolute 0.00 0 10? 3 /uL 10/29/2019 6:55 AM [facility] nRBC Auto 0.0 0 /100 WBC 10/29/2019 6:55 AM [facility] Blood BLOOD SPECIMEN / Unknown Venipuncture / Unknown 10/29/2019 6:31 AM FINANCIAL RETIREMENT PLAN SPECIALIST 10/29/2019 6:36 AM FINANCIAL RETIREMENT PLAN SPECIALIST Tyrone Solis MD LAB - HEMATOLOGY OR DERABLES Performing Organization Address City/[facility]/ZIP Co de Phone Number [facility] [address] [place] [address] * (ABNORMAL) BLOOD GASES ARTERIAL (10/29/2019 6:31 AM FINANCIAL RETIREMENT PLAN SPECIALIST) pH Arterial 7.38 7.35 - 7.45 10/29/2019 7:16 AM [facility] pCO2 Arterial 38 35 - 45 mmHg 10/29/2019 7:16 AM [facility] pO2 Arterial 212(H) 82 - 106 mmHg 10/29/2019 7:16 AM [facility] HCO3 Arterial 21.8(L) 22.0 - 26.0 mmol/L 10/29/2019 7:16 AM [facility] TCO2 Arterial 22.9(L) 25.0 - 29.0 mmol/L 10/29/2019 7:16 AM [facility] Base Excess Arterial -3.1(L) -2.0 - 2.0 mmol/L 10/29/2019 7:16 AM [facility] Hemoglobin Arterial 7.4(L) 12.0 - 15.5 g/dL 10/29/2019 7:16 AM [facility] Oxyhemoglobin Arterial 97.5 95.0 - 100.0 % 10/29/2019 7:16 AM [facility] Carboxyhemoglobin 0.2 0.0 - 3.0 % 10/29/2019 7:16 AM [facility] Methemoglobin 0.7 0.0 - 2.0 % 10/29/2019 7:16 AM [facility] FI O2 Arterial 40.0 % 10/29/2019 7:16 AM [facility] Blood, arterial ARTERIAL BLOOD SPECIMEN / Unknown Arterial Puncture / Unknown 10/29/2019 6:31 AM FINANCIAL RETIREMENT PLAN SPECIALIST 10/29/2019 7:14 AM FINANCIAL RETIREMENT PLAN SPECIALIST Tyrone Solis MD LAB - BLOOD GASES O RDERABLES [facility] [address] [phone] * (ABNORMAL) BASIC METABOLIC PANEL (CALCIUM TOTAL) (10/29/2019 6:31 AM FINANCIAL RETIREMENT PLAN SPECIALIST) BUN 4(L) 7 - 26 mg/dL 10/29/2019 7:09 AM [facility] Creatinine 0.8 0.6 - 1.2 mg/dL 10/29/2019 7:09 AM [facility] Sodium 137 136 - 145 mmol/L 10/29/2019 7:09 AM [facility] Potassium 3.5 3.5 - 4.5 mmol/L 10/29/2019 7:09 AM [facility] Chloride 109(H) 98 - 107 mmol/L 10/29/2019 7:09 AM [facility] CO2 21(L) 22 - 29 mmol/L 10/29/2019 7:09 AM [facility] Glucose 83 70 - 115 mg/dL 10/29/2019 7:09 AM [facility] Calcium 7.9(L) 8.4 - 10.2 mg/dL 10/29/2019 7:09 AM [facility] Anion Gap 11 8 - 18 10/29/2019 7:09 AM [facility] BUN/Creatinine Ratio 5(L) 7 - 23 10/29/2019 7:09 AM [facility] Osmolality Calculated 280 270 - 300 mOsm/kg 10/29/2019 7:09 AM [facility] eGFR >60 >60 mL/min/1.7 3 m2 10/29/2019 7:09 AM [facility] Blood BLOOD SPECIMEN / Unknown Venipuncture / Unknown 10/29/2019 6:31 AM FINANCIAL RETIREMENT PLAN SPECIALIST 10/29/2019 6:36 AM [facility] Tyrone Solis MD LAB - CHEMISTRY ORD ERABLES [facility] [address] [place] [address] * XR CHEST 1VW PORTABLE (10/29/2019 6:03 AM FINANCIAL RETIREMENT PLAN SPECIALIST) Anatomical Region Laterality Modality Chest Radiographic Radha ging 10/29/2019 8:37 AM FINANCIAL RETIREMENT PLAN SPECIALIST Impressions 10/29/2019 7:08 PM FINANCIAL RETIREMENT PLAN SPECIALIST FINDINGS/IMPRESSION: The endotracheal tube terminates in the mid to distal thoracic trachea. The enteric tube terminates in the distal stomach. A right internal jugular approach central venous catheter superimposes the superior vena cava. The lung volumes remain small. There is no focal consolidation, pleural effusion, or pneumothorax. The cardiomediastinal silhouette is stable. Dictated by Cal Sahu MD (doctor of radiology). Dr. CANDE Simmons have personally reviewed and interpreted this examination/study. This report was electronically signed by CANDE LECHUGA ??on 10/29/2019 7:08 PM . Narrative 10/29/2019 7:08 PM FINANCIAL RETIREMENT PLAN SPECIALIST EXAMINATION: XR CHEST 1VW PORTABLE HISTORY: [...] is stable. Dictated by Cal Sahu MD (doctor of radiology). Dr. CANDE Simmons have personally reviewed and interpreted this examination/study. This report was electronically signed by CANDE LECHUGA on 10/29/20197:08 PM . Kapil Gonsalves MD DIAGNOSTIC IMAGING O RDERABLES * (ABNORMAL) CBC W/O DIFFERENTIAL (10/29/2019 12:42 AM FINANCIAL RETIREMENT PLAN SPECIALIST) Pathologist [facility] WBC 13.3(H) 3.5 - 10.5 10? 3 /uL 10/29/2019 12:55 AM FINANCIAL RETIREMENT PLAN SPECIALIST [facility] RBC 2.53(L) 3.90 - 5.00 10? 6 /uL 10/29/2019 12:55 AM [facility] Hemoglobin 7.8(L) 12.0 - 15.5 g/dL 10/29/2019 12:55 AM [facility] Hematocrit 22.9(L) 35.0 - 45.0 % 10/29/2019 12:55 AM [facility] MCV 90.5 81.0 - 97.0 fL 10/29/2019 12:55 AM [facility] MCH 30.8 28.0 - 34.0 pg 10/29/2019 12:55 AM [facility] MCHC 34.1 32.0 - 36.0 g/dL 10/29/2019 12:55 AM [facility] Platelet Count 102(L) 150 - 400 10? 3 /uL 10/29/2019 12:55 AM [facility] RDW-SD 50.6(H) 36.0 - 50.0 fL 10/29/2019 12:55 AM [facility] RDW-CV 15.3(H) 11.2 - 14.8 % 10/29/2019 12:55 AM [facility] MPV 11.2 9.3 - 12.8 fL 10/29/2019 12:55 AM [facility] nRBC Absolute 0.00 0 10? 3 /uL 10/29/2019 12:55 AM [facility] nRBC Auto 0.0 0 /100 WBC 10/29/2019 12:55 AM [facility] Blood BLOOD SPECIMEN / Unknown Venipuncture / Unknown 10/29/2019 12:42 AM FINANCIAL RETIREMENT PLAN SPECIALIST 10/29/2019 12:48 AM [facility] Tyrone Solis MD LAB - HEMATOLOGY OR DERABLES [address] [phone] * (ABNORMAL) BLOOD GASES ARTERIAL (10/29/2019 12:42 AM FINANCIAL RETIREMENT PLAN SPECIALIST) pH Arterial 7.36 7.35 - 7.45 10/29/2019 12:51 AM [facility] pCO2 Arterial 37 35 - 45 mmHg 10/29/2019 12:51 AM [facility] pO2 Arterial 157(H) 82 - 106 mmHg 10/29/2019 12:51 AM [facility] HCO3 Arterial 20.8(L) 22.0 - 26.0 mmol/L 10/29/2019 12:51 AM [facility] TCO2 Arterial 21.9(L) 25.0 - 29.0 mmol/L 10/29/2019 12:51 AM [facility] Base Excess Arterial -4.2(L) -2.0 - 2.0 mmol/L 10/29/2019 12:51 AM [facility] Hemoglobin Arterial 7.6(L) 12.0 - 15.5 g/dL 10/29/2019 12:51 AM [facility] Oxyhemoglobin Arterial 97.3 95.0 - 100.0 % 10/29/2019 12:51 AM [facility] Carboxyhemoglobin 0.1 0.0 - 3.0 % 10/29/2019 12:51 AM [facility] Methemoglobin 0.5 0.0 - 2.0 % 10/29/2019 12:51 AM [facility] FI O2 Arterial 40.0 % 10/29/2019 12:51 AM [facility] Blood, arterial ARTERIAL BLOOD SPECIMEN / Unknown Arterial Puncture / Unknown 10/29/2019 12:42 AM FINANCIAL RETIREMENT PLAN SPECIALIST 10/29/2019 12:46 AM FINANCIAL RETIREMENT PLAN SPECIALIST Tyrone Solis MD LAB - BLOOD GASES O RDERABLES Performing Organization Address City/State/[facility] Co de Phone Number [facility] [address] [place] [address] * (ABNORMAL) BASIC METABOLIC PANEL (CALCIUM TOTAL) (10/29/2019 12:42 AM FINANCIAL RETIREMENT PLAN SPECIALIST) BUN 5(L) 7 - 26 mg/dL 10/29/2019 1:15 AM [facility] Creatinine 0.8 0.6 - 1.2 mg/dL 10/29/2019 1:15 AM [facility] Sodium 138 136 - 145 mmol/L 10/29/2019 1:15 AM [facility] Potassium 3.5 3.5 - 4.5 mmol/L 10/29/2019 1:15 AM [facility] Chloride 109(H) 98 - 107 mmol/L 10/29/2019 1:15 AM [facility] CO2 19(L) 22 - 29 mmol/L 10/29/2019 1:15 AM [facility] Glucose 86 70 - 115 mg/dL 10/29/2019 1:15 AM [facility] Calcium 7.9(L) 8.4 - 10.2 mg/dL 10/29/2019 1:15 AM [facility] Anion Gap 14 8 - 18 10/29/2019 1:15 AM [facility] BUN/Creatinine Ratio 6(L) 7 - 23 10/29/2019 1:15 AM [facility] Osmolality Calculated 283 270 - 300 mOsm/kg 10/29/2019 1:15 AM [facility] eGFR >60 >60 mL/min/1.7 3 m2 10/29/2019 1:15 AM [facility] Blood BLOOD SPECIMEN / Unknown Venipuncture / Unknown 10/29/2019 12:42 AM FINANCIAL RETIREMENT PLAN SPECIALIST 10/29/2019 12:48 AM FINANCIAL RETIREMENT PLAN SPECIALIST Tyrone Solis MD LAB - CHEMISTRY ORD ERABLES [address] [phone] * (ABNORMAL) PT-INR [facility] (10/29/2019 12:42 AM FINANCIAL RETIREMENT PLAN SPECIALIST) PT 16.4(H) 12.1 - 14.8 Seconds 10/29/2019 12:59 AM [facility] INR 1.4 See Comment 10/29/2019 12:59 AM [facility] Comment:The suggested therap eutic range for standard coumadin (warfarin) therapy is an INR of 2.0-3.0. For high-risk patients (Mechanical Mitral Valve Prosthesis, etc.), the suggested prophylactic therapeutic range is an INR of 2.5-3.5. Blood BLOOD SPECIMEN / Unknown Venipuncture / Unknown 10/29/2019 12:42 AM FINANCIAL RETIREMENT PLAN SPECIALIST 10/29/2019 12:48 AM FINANCIAL RETIREMENT PLAN SPECIALIST Nano Garces MD LAB - COAGULATI ON ORDERABLES [address] [phone] * PHOSPHORUS BLOOD (10/29/2019 12:42 AM FINANCIAL RETIREMENT PLAN SPECIALIST) Phosphorus 2.5 2.3 - 4.7 mg/dL 10/29/2019 1:15 AM [facility] Blood BLOOD SPECIMEN / Unknown Venipuncture / Unknown 10/29/2019 12:42 AM FINANCIAL RETIREMENT PLAN SPECIALIST 10/29/2019 12:48 AM FINANCIAL RETIREMENT PLAN SPECIALIST Nano Garces MD LAB - CHEMISTRY ORDERABLES Performing Organization Address City/[facility]/ZIP Co de Phone Number [address] [phone] * MAGNESIUM BLOOD (10/29/2019 12:42 AM FINANCIAL RETIREMENT PLAN SPECIALIST) Magnesium 1.7 1.6 - 2.6 mg/dL 10/29/2019 1:15 AM [facility] Blood BLOOD SPECIMEN / Unknown Venipuncture / Unknown 10/29/2019 12:42 AM FINANCIAL RETIREMENT PLAN SPECIALIST 10/29/2019 12:48 AM FINANCIAL RETIREMENT PLAN SPECIALIST Nano Garces MD LAB - CHEMISTRY ORDERABLES [address] [phone] * (ABNORMAL) CBC W/O DIFFERENTIAL (10/28/2019 6:17 PM FINANCIAL RETIREMENT PLAN SPECIALIST) WBC 12.1(H) 3.5 - 10.5 10? 3 /uL 10/28/2019 6:33 PM [facility] RBC 2.49(L) 3.90 - 5.00 10? 6 /uL 10/28/2019 6:33 PM [facility] Hemoglobin 7.7(L) 12.0 - 15.5 g/dL 10/28/2019 6:33 PM [facility] Hematocrit 22.5(L) 35.0 - 45.0 % 10/28/2019 6:33 PM [facility] MCV 90.4 81.0 - 97.0 fL 10/28/2019 6:33 PM [facility] MCH 30.9 28.0 - 34.0 pg 10/28/2019 6:33 PM [facility] MCHC 34.2 32.0 - 36.0 g/dL 10/28/2019 6:33 PM [facility] Platelet Count 95(L) 150 - 400 10? 3 /uL 10/28/2019 6:33 PM [facility] RDW-SD 51.4(H) 36.0 - 50.0 fL 10/28/2019 6:33 PM [facility] RDW-CV 15.5(H) 11.2 - 14.8 % 10/28/2019 6:33 PM [facility] MPV 11.2 9.3 - 12.8 fL 10/28/2019 6:33 PM [facility] nRBC Absolute 0.00 0 10? 3 /uL 10/28/2019 6:33 PM [facility] nRBC Auto 0.0 0 /100 WBC 10/28/2019 6:33 PM [facility] Blood BLOOD SPECIMEN / Unknown Venipuncture / Unknown 10/28/2019 6:17 PM FINANCIAL RETIREMENT PLAN SPECIALIST 10/28/2019 6:28 PM [facility] Tyrone Solis MD LAB - HEMATOLOGY OR DERABLES Performing Organization Address City/State/[facility] Co de Phone Number [facility] [address] [place] [address] * (ABNORMAL) BLOOD GASES ARTERIAL (10/28/2019 6:17 PM FINANCIAL RETIREMENT PLAN SPECIALIST) pH Arterial 7.42 7.35 - 7.45 10/28/2019 6:29 PM [facility] pCO2 Arterial 30(L) 35 - 45 mmHg 10/28/2019 6:29 PM [facility] pO2 Arterial 142(H) 82 - 106 mmHg 10/28/2019 6:29 PM [facility] HCO3 Arterial 19.1(L) 22.0 - 26.0 mmol/L 10/28/2019 6:29 PM [facility] TCO2 Arterial 20.0(L) 25.0 - 29.0 mmol/L 10/28/2019 6:29 PM [facility] Base Excess Arterial -4.7(L) -2.0 - 2.0 mmol/L 10/28/2019 6:29 PM [facility] Hemoglobin Arterial 7.9(L) 12.0 - 15.5 g/dL 10/28/2019 6:29 PM [facility] Oxyhemoglobin Arterial 97.3 95.0 - 100.0 % 10/28/2019 6:29 PM [facility] Carboxyhemoglobin 0.3 0.0 - 3.0 % 10/28/2019 6:29 PM [facility] Methemoglobin 0.7 0.0 - 2.0 % 10/28/2019 6:29 PM [facility] FI O2 Arterial 40.0 % 10/28/2019 6:29 PM [facility] Blood, arterial ARTERIAL BLOOD SPECIMEN / Unknown Arterial Puncture / Unknown 10/28/2019 6:17 PM FINANCIAL RETIREMENT PLAN SPECIALIST 10/28/2019 6:28 PM FINANCIAL RETIREMENT PLAN SPECIALIST Tyrone Solis MD LAB - BLOOD GASES O RDERABLES [address] [phone] * (ABNORMAL) BASIC METABOLIC PANEL (CALCIUM TOTAL) (10/28/2019 6:17 PM FINANCIAL RETIREMENT PLAN SPECIALIST) BUN 6(L) 7 - 26 mg/dL 10/28/2019 7:03 PM [facility] Creatinine 0.7 0.6 - 1.2 mg/dL 10/28/2019 7:03 PM [facility] Sodium 138 136 - 145 mmol/L 10/28/2019 7:03 PM [facility] Potassium 3.7 3.5 - 4.5 mmol/L 10/28/2019 7:03 PM [facility] Chloride 109(H) 98 - 107 mmol/L 10/28/2019 7:03 PM [facility] CO2 20(L) 22 - 29 mmol/L 10/28/2019 7:03 PM [facility] Glucose 89 70 - 115 mg/dL 10/28/2019 7:03 PM [facility] Calcium 7.6(L) 8.4 - 10.2 mg/dL 10/28/2019 7:03 PM [facility] Anion Gap 13 8 - 18 10/28/2019 7:03 PM [facility] BUN/Creatinine Ratio 9 7 - 23 10/28/2019 7:03 PM [facility] Osmolality Calculated 283 270 - 300 mOsm/kg 10/28/2019 7:03 PM [facility] eGFR >60 >60 mL/min/1.7 3 m2 10/28/2019 7:03 PM [facility] Blood BLOOD SPECIMEN / Unknown Venipuncture / Unknown 10/28/2019 6:17 PM FINANCIAL RETIREMENT PLAN SPECIALIST 10/28/2019 6:28 PM [facility] Tyrone Solis MD LAB - CHEMISTRY ORD ERABLES [address] [phone] * (ABNORMAL) BLOOD GASES ART COMPLETE [facility] OR (10/28/2019 2:12 PM FINANCIAL RETIREMENT PLAN SPECIALIST) pH Arterial 7.38 7.35 - 7.45 10/28/2019 2:18 PM [facility] pCO2 Arterial 37 35 - 45 mmHg 10/28/2019 2:18 PM [facility] pO2 Arterial 133 mmHg 10/28/2019 2:18 PM [facility] HCO3 Arterial 21.4(L) 22.0 - 26.0 mmol/L 10/28/2019 2:18 PM [facility] TCO2 Arterial 22.6(L) 25.0 - 29.0 mmol/L 10/28/2019 2:18 PM [facility] Base Excess Arterial -3.3(L) -2.0 - 2.0 mmol/L 10/28/2019 2:18 PM [facility] Hemoglobin Arterial 8.6(L) 12.0 - 15.5 g/dL 10/28/2019 2:18 PM [facility] Oxyhemoglobin Arterial 97.1 92.0 - 100.0 % 10/28/2019 2:18 PM [facility] Carboxyhemoglobin 0.2 0.0 - 3.0 % 10/28/2019 2:18 PM [facility] Methemoglobin 0.2 0.0 - 2.0 % 10/28/2019 2:18 PM [facility] FI O2 Arterial 50.0 % 10/28/2019 2:18 PM [facility] Ionized Calcium Whole Blood 1.10 mmol/L 10/28/2019 2:18 PM [facility] Adjusted Ionized Calcium 1.09(L) 1.19 - 1.34 mmol/L 10/28/2019 2:18 PM [facility] Sodium Whole Blood 134(L) 135 - 145 mmol/L 10/28/2019 2:18 PM [facility] Potassium Whole Blood 3.9 3.5 - 5.5 mmol/L 10/28/2019 2:18 PM [facility] Chloride Whole Blood 106 mmol/L 01/2020 2:18 PM [facility] Glucose Whole Blood 96 70 - 110 mg/dL 10/28/2019 2:18 PM [facility] Lactic Acid Whole Blood 0.8 0.5 - 3.4 mmol/L 10/28/2019 2:18 PM [facility] Blood ARTERIAL BLOOD SPECIMEN / Unknown Venipuncture / Unknown 10/28/2019 2:12 PM FINANCIAL RETIREMENT PLAN SPECIALIST 10/28/2019 2:16 PM [facility] Campbell Alcala MD LAB - BLOOD GASES OR DERABLES Performing Organization Address City/State/[facility] Co de Phone Number [address] [phone] * (ABNORMAL) CBC W/O DIFFERENTIAL (10/28/2019 2:12 PM FINANCIAL RETIREMENT PLAN SPECIALIST) WBC 12.2(H) 3.5 - 10.5 10? 3 /uL 10/28/2019 2:30 PM [facility] RBC 2.71(L) 3.90 - 5.00 10? 6 /uL 10/28/2019 2:30 PM [facility] Hemoglobin 8.3(L) 12.0 - 15.5 g/dL 10/28/2019 2:30 PM [facility] Hematocrit 24.4(L) 35.0 - 45.0 % 10/28/2019 2:30 PM [facility] MCV 90.0 81.0 - 97.0 fL 10/28/2019 2:30 PM [facility] MCH 30.6 28.0 - 34.0 pg 10/28/2019 2:30 PM [facility] MCHC 34.0 32.0 - 36.0 g/dL 10/28/2019 2:30 PM [facility] Platelet Count 98(L) 150 - 400 10? 3 /uL 10/28/2019 2:30 PM [facility] Comment:Checked with previou s results. RDW-SD 51.5(H) 36.0 - 50.0 fL 10/28/2019 2:30 PM [facility] RDW-CV 15.8(H) 11.2 - 14.8 % 10/28/2019 2:30 PM [facility] MPV 10.8 9.3 - 12.8 fL 10/28/2019 2:30 PM [facility] nRBC Absolute 0.00 0 10? 3 /uL 10/28/2019 2:30 PM [facility] nRBC Auto 0.0 0 /100 WBC 10/28/2019 2:30 PM [facility] Blood BLOOD SPECIMEN / Unknown Venipuncture / Unknown 10/28/2019 2:12 PM FINANCIAL [employer]IREMENT PLAN SPECIALIST 10/28/2019 2:17 PM FINANCIAL RETIREMENT PLAN SPECIALIST Tyrone Solis MD LAB - HEMATOLOGY OR DERABLES Performing Organization Address City/State/[facility] Co de Phone Number [address] [phone] * (ABNORMAL) BASIC METABOLIC PANEL (CALCIUM TOTAL) (10/28/2019 2:12 PM FINANCIAL RETIREMENT PLAN SPECIALIST) BUN 6(L) 7 - 26 mg/dL 10/28/2019 2:40 PM [facility] Creatinine 0.7 0.6 - 1.2 mg/dL 10/28/2019 2:40 PM [facility] Sodium 138 136 - 145 mmol/L 10/28/2019 2:40 PM [facility] Potassium 3.9 3.5 - 4.5 mmol/L 10/28/2019 2:40 PM [facility] Chloride 108(H) 98 - 107 mmol/L 10/28/2019 2:40 PM [facility] CO2 21(L) 22 - 29 mmol/L 10/28/2019 2:40 PM [facility] Glucose 95 70 - 115 mg/dL 10/28/2019 2:40 PM [facility] Calcium 7.9(L) 8.4 - 10.2 mg/dL 10/28/2019 2:40 PM [facility] Anion Gap 13 8 - 18 10/28/2019 2:40 PM [facility] BUN/Creatinine Ratio 9 7 - 23 10/28/2019 2:40 PM [facility] Osmolality Calculated 283 270 - 300 mOsm/kg 10/28/2019 2:40 PM [facility] eGFR >60 >60 mL/min/1.7 3 m2 10/28/2019 2:40 PM [facility] Blood BLOOD SPECIMEN / Unknown Venipuncture / Unknown 10/28/2019 2:12 PM FINANCIAL RETIREMENT PLAN SPECIALIST 10/28/2019 2:17 PM [facility] Tyrone Solis MD LAB - CHEMISTRY ORD ERABLES [address] [phone] * (ABNORMAL) BLOOD GASES ARTERIAL (10/28/2019 12:04 PM FINANCIAL RETIREMENT PLAN SPECIALIST) pH Arterial 7.41 7.35 - 7.45 10/28/2019 12:09 PM [facility] pCO2 Arterial 36 35 - 45 mmHg 10/28/2019 12:09 PM [facility] pO2 Arterial 200 mmHg 10/28/2019 12:09 PM [facility] HCO3 Arterial 21.8(L) 22.0 - 26.0 mmol/L 10/28/2019 12:09 PM [facility] TCO2 Arterial 22.9(L) 25.0 - 29.0 mmol/L 10/28/2019 12:09 PM [facility] Base Excess Arterial -2.5(L) -2.0 - 2.0 mmol/L 10/28/2019 12:09 PM [facility] Hemoglobin Arterial 8.6(L) 12.0 - 15.5 g/dL 10/28/2019 12:09 PM [facility] Oxyhemoglobin Arterial 97.6 92.0 - 100.0 % 10/28/2019 12:09 PM [facility] Carboxyhemoglobin 0.2 0.0 - 3.0 % 10/28/2019 12:09 PM [facility] Methemoglobin 0.5 0.0 - 2.0 % 10/28/2019 12:09 PM [facility] FI O2 Arterial 50.0 % 10/28/2019 12:09 PM [facility] Blood, arterial ARTERIAL BLOOD SPECIMEN / Unknown Arterial Puncture / Unknown 10/28/2019 12:04 PM FIN[employer]CIAL [employer]IREMENT [employer]AN SPECIALIST 10/28/2019 12:07 PM FINANCIAL RETIREMENT PLAN SPECIALIST Tyrone Solis MD LAB - BLOOD GASES O RDERABLES Performing Organization Address City/State/[facility] Co de Phone Number [address] [phone] * XR ABDOMEN KUB PORTABLE (10/28/2019 12:00 PM FINANCIAL RETIREMENT PLAN SPECIALIST) Anatomical Region Laterality Modality Abdomen Radiographic Radha ging 10/28/2019 12:1 1 PM FIN[employer] SPECIALIST Impressions 10/28/2019 1:16 PM [employer] SPECIALIST IMPRESSION: No needles, instruments, or sponges. Results were conveyed to JALEN Suarez on 10/28/2019 at 12:10 PM This report was electronically signed by CHAD MOREL M.D. ??on 10/28/2019 1:16 PM . Narrative 10/28/2019 1:16 PM [employer] SPECIALIST Exam: XR ABDOMEN KUB PORTABLE Date: 10/28/2019 [...] (ABNORMAL) CBC W/O DIFFERENTIAL (10/28/2019 6:07 AM [facility] [place]) WBC 11.6(H) 3.5 - 10.5 10? 3 /uL 10/28/2019 6:32 AM [facility] RBC 2.65(L) 3.90 - 5.00 10? 6 /uL 10/28/2019 6:32 AM [facility] Hemoglobin 8.2(L) 12.0 - 15.5 g/dL 10/28/2019 6:32 AM [facility] Hematocrit 23.7(L) 35.0 - 45.0 % 10/28/2019 6:32 AM [facility] MCV 89.4 81.0 - 97.0 fL 10/28/2019 6:32 AM [facility] MCH 30.9 28.0 - 34.0 pg 10/28/2019 6:32 AM [facility] MCHC 34.6 32.0 - 36.0 g/dL 10/28/2019 6:32 AM [facility] Platelet Count 91(L) 150 - 400 10? 3 /uL 10/28/2019 6:32 AM [facility] Comment:Checked with previou s results. RDW-SD 51.5(H) 36.0 - 50.0 fL 10/28/2019 6:32 AM [facility] RDW-CV 15.8(H) 11.2 - 14.8 % 10/28/2019 6:32 AM [facility] MPV 11.1 9.3 - 12.8 fL 10/28/2019 6:32 AM [facility] nRBC Absolute 0.00 0 10? 3 /uL 10/28/2019 6:32 AM [facility] nRBC Auto 0.0 0 /100 WBC 10/28/2019 6:32 AM [facility] Blood BLOOD SPECIMEN / Unknown Venipuncture / Unknown 10/28/2019 6:07 AM [employer] 10/28/2019 6:13 AM [employer] SPECIALIST Tyrone Solis MD LAB - HEMATOLOGY OR DERABLES [facility] [address] [phone] * (ABNORMAL) BLOOD GASES ARTERIAL (10/28/2019 6:07 AM [facility] [place]) pH Arterial 7.37 7.35 - 7.45 10/28/2019 6:18 AM [facility] pCO2 Arterial 39 35 - 45 mmHg 10/28/2019 6:18 AM [facility] pO2 Arterial 168 mmHg 10/28/2019 6:18 AM [facility] HCO3 Arterial 22.1 22.0 - 26.0 mmol/L 10/28/2019 6:18 AM [facility] TCO2 Arterial 23.3(L) 25.0 - 29.0 mmol/L 10/28/2019 6:18 AM [facility] Base Excess Arterial -2.8(L) -2.0 - 2.0 mmol/L 10/28/2019 6:18 AM [facility] Hemoglobin Arterial 8.2(L) 12.0 - 15.5 g/dL 10/28/2019 6:18 AM [facility] Oxyhemoglobin Arterial 97.6 92.0 - 100.0 % 10/28/2019 6:18 AM [facility] Carboxyhemoglobin 0.1 0.0 - 3.0 % 10/28/2019 6:18 AM [facility] Methemoglobin 0.3 0.0 - 2.0 % 10/28/2019 6:18 AM [facility] FI O2 Arterial 40.0 % 10/28/2019 6:18 AM [facility] Blood, arterial ARTERIAL BLOOD SPECIMEN / Unknown Arterial Puncture / Unknown 10/28/2019 6:07 AM [employer]IST 10/28/2019 6:13 AM [employer] SPECIALIST Tyrone Solis MD LAB - BLOOD GASES O RDERABLES Performing Organization Address City/[facility]/ZIP Co de Phone Number [facility] [address] [phone] * (ABNORMAL) BASIC METABOLIC PANEL (CALCIUM TOTAL) (10/28/2019 6:07 AM [employer]) BUN 8 7 - 26 mg/dL 10/28/2019 6:34 AM [facility] Creatinine 0.8 0.6 - 1.2 mg/dL 10/28/2019 6:34 AM [facility] Sodium 139 136 - 145 mmol/L 10/28/2019 6:34 AM [facility] Potassium 3.7 3.5 - 4.5 mmol/L 10/28/2019 6:34 AM [facility] Chloride 112(H) 98 - 107 mmol/L 10/28/2019 6:34 AM [facility] CO2 22 22 - 29 mmol/L 10/28/2019 6:34 AM [facility] Glucose 91 70 - 115 mg/dL 10/28/2019 6:34 AM [facility] Calcium 7.7(L) 8.4 - 10.2 mg/dL 10/28/2019 6:34 AM [facility] Anion Gap 9 8 - 18 10/28/2019 6:34 AM [facility] BUN/Creatinine Ratio 10 7 - 23 10/28/2019 6:34 AM [facility] Osmolality Calculated 286 270 - 300 mOsm/kg 10/28/2019 6:34 AM [facility] eGFR >60 >60 mL/min/1.7 3 m2 10/28/2019 6:34 AM [facility] Blood BLOOD SPECIMEN / Unknown Venipuncture / Unknown 10/28/2019 6:07 AM [employer] 10/28/2019 6:13 AM [employer]IST Tyrone Solis MD LAB - CHEMISTRY ORD ERABLES Performing Organization Address City/[facility]/ZIP Co de Phone Number [address] [phone] * PHOSPHORUS BLOOD (10/28/2019 6:07 AM [employer] SPECIALIST) Phosphorus 3.2 2.3 - 4.7 mg/dL 10/28/2019 6:34 AM [employer] SPECIALIST [facility] Blood BLOOD SPECIMEN / Unknown Venipuncture / Unknown 10/28/2019 6:07 AM [employer] SPECIALIST 10/28/2019 6:13 AM [employer]IST Nano Garces MD LAB - CHEMISTRY ORDERABLES Performing Organization Address [facility]/ZIP Co de Phone Number [address] [phone] * MAGNESIUM BLOOD (10/28/2019 6:07 AM [employer] SPECIALIST) Magnesium 2.0 1.6 - 2.6 mg/dL 10/28/2019 6:34 AM FIN[employer] SPECIALIST [facility] Blood BLOOD SPECIMEN / Unknown Venipuncture / Unknown 10/28/2019 6:07 AM [employer] SPECIALIST 10/28/2019 6:13 AM [employer]IST Nano Garces MD LAB - CHEMISTRY ORDERABLES Performing Organization Address [facility]/[place] [address], [facility] [phone] * XR CHEST 1VW PORTABLE (10/28/2019 5:51 AM [employer] SPECIALIST) Anatomical Region Laterality Modality Chest Radiographic Radha ging 10/28/2019 7:24 AM [employer] SPECIALIST Impressions 10/28/2019 1:09 PM [employer]IST FINDINGS/IMPRESSION: Lines: Endotracheal tube tip projects 1.3 [...] is normal. Dictated by Leif Smiley MD (doctor of radiology). I, Dr. ALMA ROSA CORDON have personally reviewed and interpreted this examination/study. This report was electronically signed by ALMA ROSA CORDON ??on 10/28/2019 1:09 PM . Narrative 10/28/2019 1:09 PM [employer]IST EXAMINATION: XR CHEST 1VW PORTABLE, 10/28/2019 5:51 AM HISTORY: [id number]: Trauma COMPARISON: Chest x-ray 10/27/2019. Procedure Note Alma Rosa Cordon DO - 10/28/2019 EXAMINATION: XR CHEST 1VW [...] is normal. Dictated by Leif Smiley MD (doctor of radiology). I, Dr. ALMA ROSA CORDON have personally reviewed and interpreted this examination/study. This report was electronically signed by ALMA ROSA CORDON on 10/28/2019 1:09 PM . Kapil Gonsalves MD DIAGNOSTIC IMAGING O RDERABLES * (ABNORMAL) CBC W/O DIFFERENTIAL (10/27/2019 11:57 PM [employer]IST) WBC 10.2 3.5 - 10.5 10? 3 /uL 10/28/2019 12:21 AM [employer] SPECIALIST [facility] RBC 2.72(L) 3.90 - 5.00 10? 6 /uL 10/28/2019 12:21 AM [employer] SPECIALIST [facility] Hemoglobin 8.3(L) 12.0 - 15.5 g/dL 10/28/2019 12:21 AM [facility] Hematocrit 24.2(L) 35.0 - 45.0 % 10/28/2019 12:21 AM [facility] MCV 89.0 81.0 - 97.0 fL 10/28/2019 12:21 AM [facility] MCH 30.5 28.0 - 34.0 pg 10/28/2019 12:21 AM [facility] MCHC 34.3 32.0 - 36.0 g/dL 10/28/2019 12:21 AM [facility] Platelet Count 95(L) 150 - 400 10? 3 /uL 10/28/2019 12:21 AM [facility] Comment:Confirmed with previ ous result RDW-SD 50.9(H) 36.0 - 50.0 fL 10/28/2019 12:21 AM [facility] RDW-CV 15.5(H) 11.2 - 14.8 % 10/28/2019 12:21 AM [facility] MPV 10.9 9.3 - 12.8 fL 10/28/2019 12:21 AM [facility] nRBC Absolute 0.00 0 10? 3 /uL 10/28/2019 12:21 AM [facility] nRBC Auto 0.0 0 /100 WBC 10/28/2019 12:21 AM [facility] Blood BLOOD SPECIMEN / Unknown Venipuncture / Unknown 10/27/2019 11:57 PM [employer]IST 10/28/2019 12:05 AM [facility] Tyrone Solis MD LAB - HEMATOLOGY OR DERABLES [address] [phone] * (ABNORMAL) BLOOD GASES ARTERIAL (10/27/2019 11:57 PM [employer] SPECIALIST) pH Arterial 7.35 7.35 - 7.45 10/28/2019 12:09 AM [facility] pCO2 Arterial 42 35 - 45 mmHg 10/28/2019 12:09 AM [facility] pO2 Arterial 170 mmHg 10/28/2019 12:09 AM [facility] HCO3 Arterial 22.6 22.0 - 26.0 mmol/L 10/28/2019 12:09 AM [facility] TCO2 Arterial 23.9(L) 25.0 - 29.0 mmol/L 10/28/2019 12:09 AM [facility] Base Excess Arterial -2.8(L) -2.0 - 2.0 mmol/L 10/28/2019 12:09 AM [facility] Hemoglobin Arterial 8.6(L) 12.0 - 15.5 g/dL 10/28/2019 12:09 AM [facility] Oxyhemoglobin Arterial 97.4 92.0 - 100.0 % 10/28/2019 12:09 AM [facility] Carboxyhemoglobin 0.2 0.0 - 3.0 % 10/28/2019 12:09 AM [facility] Methemoglobin 0.5 0.0 - 2.0 % 10/28/2019 12:09 AM [facility] FI O2 Arterial 40.0 % 10/28/2019 12:09 AM [facility] Blood, arterial ARTERIAL BLOOD SPECIMEN / Unknown Arterial Puncture / Unknown 10/27/2019 11:57 PM [employer]IST 10/28/2019 12:05 AM [facility] Tyrone Solis MD LAB - BLOOD GASES O RDERABLES Performing Organization Address City/State/[facility] Co de Phone Number [address] [phone] * (ABNORMAL) BASIC METABOLIC PANEL (CALCIUM TOTAL) (10/27/2019 11:57 PM [facility]) BUN 10 7 - 26 mg/dL 10/28/2019 12:37 AM [facility] Creatinine 0.8 0.6 - 1.2 mg/dL 10/28/2019 12:37 AM [facility] Sodium 137 136 - 145 mmol/L 10/28/2019 12:37 AM [facility] Potassium 3.9 3.5 - 4.5 mmol/L 10/28/2019 12:37 AM [facility] Chloride 110(H) 98 - 107 mmol/L 10/28/2019 12:37 AM [facility] CO2 21(L) 22 - 29 mmol/L 10/28/2019 12:37 AM [facility] Glucose 130(H) 70 - 115 mg/dL 10/28/2019 12:37 AM [facility] Calcium 7.7(L) 8.4 - 10.2 mg/dL 10/28/2019 12:37 AM [facility] Anion Gap 10 8 - 18 10/28/2019 12:37 AM [facility] BUN/Creatinine Ratio 13 7 - 23 10/28/2019 12:37 AM [facility] Osmolality Calculated 285 270 - 300 mOsm/kg 10/28/2019 12:37 AM [facility] eGFR >60 >60 mL/min/1.7 3 m2 10/28/2019 12:37 AM [facility] Blood BLOOD SPECIMEN / Unknown Venipuncture / Unknown 10/27/2019 11:57 PM [employer]IST 10/28/2019 12:05 AM [employer]IST Tyrone Solis MD LAB - CHEMISTRY ORD ERABLES Performing Organization Address [facility] Co de Phone Number [address] [phone] * (ABNORMAL) PT-INR [facility] (10/27/2019 11:57 PM [employer] SPECIALIST) PT 16.4(H) 12.1 - 14.8 Seconds 10/28/2019 12:29 AM [facility] INR 1.4 See Comment 10/28/2019 12:29 AM [facility] Comment:The suggested therap eutic range for standard coumadin (warfarin) therapy is an INR of 2.0-3.0. For high-risk patients (Mechanical Mitral Valve Prosthesis, etc.), the suggested prophylactic therapeutic range is an INR of 2.5-3.5. Blood BLOOD SPECIMEN / Unknown Venipuncture / Unknown 10/27/2019 11:57 PM [employer]IST 10/28/2019 12:05 AM [employer] SPECIALIST Nano Garces MD LAB - COAGULATI ON ORDERABLES Performing Organization Address [facility]/State/ZIP Co de Phone Number [address] [phone] * PHOSPHORUS BLOOD (10/27/2019 11:57 PM [employer] SPECIALIST) Pathologist [facility] Phosphorus 3.5 2.3 - 4.7 mg/dL 10/28/2019 12:37 AM [facility] Blood BLOOD SPECIMEN / Unknown Venipuncture / Unknown 10/27/2019 11:57 PM [employer] SPECIALIST 10/28/2019 12:05 AM [employer] SPECIALIST Nano Garces MD LAB - CHEMISTRY ORDERABLES [address] [phone] * MAGNESIUM BLOOD (10/27/2019 11:57 PM FIN[employer] SPECIALIST) [facility] Magnesium 2.1 1.6 - 2.6 mg/dL 10/28/2019 12:37 AM [facility] Blood BLOOD SPECIMEN / Unknown Venipuncture / Unknown 10/27/2019 11:57 PM [employer] SPECIALIST 10/28/2019 12:05 AM FIN[employer] SPECIALIST Nano Garces MD LAB - CHEMISTRY ORDERABLES [address] [phone] * (ABNORMAL) BASIC METABOLIC PANEL (CALCIUM TOTAL) (10/27/2019 6:13 PM FIN[employer] SPECIALIST) [facility] BUN 12 7 - 26 mg/dL 10/27/2019 6:45 PM [facility] Creatinine 0.8 0.6 - 1.2 mg/dL 10/27/2019 6:45 PM [facility] Sodium 139 136 - 145 mmol/L 10/27/2019 6:45 PM [facility] Potassium 4.5 3.5 - 4.5 mmol/L 10/27/2019 6:45 PM [facility] Chloride 112(H) 98 - 107 mmol/L 10/27/2019 6:45 PM [facility] CO2 19(L) 22 - 29 mmol/L 10/27/2019 6:45 PM [facility] Glucose 112 70 - 115 mg/dL 10/27/2019 6:45 PM [facility] Calcium 8.0(L) 8.4 - 10.2 mg/dL 10/27/2019 6:45 PM [facility] Anion Gap 13 8 - 18 10/27/2019 6:45 PM [facility] BUN/Creatinine Ratio 15 7 - 23 10/27/2019 6:45 PM [facility] Osmolality Calculated 289 270 - 300 mOsm/kg 10/27/2019 6:45 PM [facility] eGFR >60 >60 mL/min/1.7 3 m2 10/27/2019 6:45 PM [facility] Blood BLOOD SPECIMEN / Unknown Venipuncture / Unknown 10/27/2019 6:13 PM [employer]IST 10/27/2019 6:16 PM [employer]IST Tyrone Solis MD LAB - CHEMISTRY ORD ERABLES [address] [phone] * (ABNORMAL) CBC W/O DIFFERENTIAL (10/27/2019 6:12 PM [employer]IST) WBC 9.7 3.5 - 10.5 10? 3 /uL 10/27/2019 6:24 PM [facility] RBC 2.93(L) 3.90 - 5.00 10? 6 /uL 10/27/2019 6:24 PM [facility] Hemoglobin 9.0(L) 12.0 - 15.5 g/dL 10/27/2019 6:24 PM [facility] Hematocrit 26.1(L) 35.0 - 45.0 % 10/27/2019 6:24 PM [facility] MCV 89.1 81.0 - 97.0 fL 10/27/2019 6:24 PM [facility] MCH 30.7 28.0 - 34.0 pg 10/27/2019 6:24 PM [facility] MCHC 34.5 32.0 - 36.0 g/dL 10/27/2019 6:24 PM [facility] Platelet Count 94(L) 150 - 400 10? 3 /uL 10/27/2019 6:24 PM [facility] RDW-SD 49.2 36.0 - 50.0 fL 10/27/2019 6:24 PM [facility] RDW-CV 15.0(H) 11.2 - 14.8 % 10/27/2019 6:24 PM [facility] MPV 10.9 9.3 - 12.8 fL 10/27/2019 6:24 PM [facility] nRBC Absolute 0.00 0 10? 3 /uL 10/27/2019 6:24 PM [facility] nRBC Auto 0.0 0 /100 WBC 10/27/2019 6:24 PM [facility] Blood BLOOD SPECIMEN / Unknown Venipuncture / Unknown 10/27/2019 6:12 PM [employer] SPECIALIST 10/27/2019 6:16 PM [employer]IST Tyrone Solis MD LAB - HEMATOLOGY OR DERABLES Performing Organization Address [facility]/State/[facility] Co de Phone Number [address] [phone] * (ABNORMAL) BLOOD GASES ARTERIAL (10/27/2019 6:12 PM FIN[employer] SPECIALIST) pH Arterial 7.35 7.35 - 7.45 10/27/2019 6:20 PM [facility] pCO2 Arterial 39 35 - 45 mmHg 10/27/2019 6:20 PM [facility] pO2 Arterial 175 mmHg 10/27/2019 6:20 PM [facility] HCO3 Arterial 20.9(L) 22.0 - 26.0 mmol/L 10/27/2019 6:20 PM [facility] TCO2 Arterial 22.1(L) 25.0 - 29.0 mmol/L 10/27/2019 6:20 PM [facility] Base Excess Arterial -4.2(L) -2.0 - 2.0 mmol/L 10/27/2019 6:20 PM [facility] Hemoglobin Arterial 9.3(L) 12.0 - 15.5 g/dL 10/27/2019 6:20 PM [facility] Oxyhemoglobin Arterial 97.6 92.0 - 100.0 % 10/27/2019 6:20 PM [employer] SPECIALIST [facility] Carboxyhemoglobin 0.1 0.0 - 3.0 % 10/27/2019 6:20 PM [facility] Methemoglobin 0.2 0.0 - 2.0 % 10/27/2019 6:20 PM [employer] SPECIALIST [facility] FI O2 Arterial 40.0 % 10/27/2019 6:20 PM FIN[employer] SPECIALIST [facility] Blood, arterial ARTERIAL BLOOD SPECIMEN / Unknown Arterial Puncture / Unknown 10/27/2019 6:12 PM [employer] SPECIALIST 10/27/2019 6:16 PM [employer] SPECIALIST Tyrone Solis MD LAB - BLOOD GASES O RDERABLES [address] [phone] * CT LUMBAR SPINE WO CONTRAST (10/27/2019 3:52 PM FIN[employer] SPECIALIST) Anatomical Region Laterality Modality Spine Computed Tomogra phy 10/27/2019 3:53 PM [employer] SPECIALIST Impressions 10/27/2019 5:01 PM [employer] SPECIALIST IMPRESSION: 1.No evidence of acute fracture in the thoracic or lumbar spine. 2.Please see the dedicated CT of the chest, abdomen pelvis of the current date for intrathoracic, intra-abdominal and intrapelvic findings. Dictated by Kalli Lake MD (doctor of radiology). I, Dr. TYLER LUCERO have personally reviewed and interpreted this examination/study. This report was electronically signed by TYLER LUCERO ??on 10/27/2019 5:01 PM . Narrative 10/27/2019 5:01 PM [employer]IST CT THORACIC SPINE WO CONTRAST, CT [...] and pelvis [facility]. COMPARISON: No prior study is [...] intrapelvic findings. Dictated by Kalli Lake MD (doctor of radiology). Dr. TYLER Simmons have personally reviewed and interpreted this examination/study. This report was electronically signed by TYLER LUCERO on 10/27/2019 5:01PM . Tyrone Solis MD CT ORDERABLES * CT THORACIC SPINE WO CONTRAST (10/27/2019 3:52 PM FIN[employer] SPECIALIST) Anatomical Region Laterality Modality Spine Computed Tomogra phy 10/27/2019 3:53 PM [employer] SPECIALIST Impressions 10/27/2019 5:01 PM [employer] SPECIALIST IMPRESSION: 1.No evidence of acute fracture in the thoracic or lumbar spine. 2.Please see the dedicated CT of the chest, abdomen pelvis of the current date for intrathoracic, intra-abdominal and intrapelvic findings. Dictated by Kalli Lake MD (doctor of radiology). Dr. TYLER Simmons have personally reviewed and interpreted this examination/study. This report was electronically signed by TYLER LUCERO ??on 10/27/2019 5:01 PM . Narrative 10/27/2019 5:01 PM [employer] SPECIALIST CT THORACIC SPINE WO CONTRAST, CT [...] and pelvis and [facility]. COMPARISON: No prior study is [...] intrapelvic findings. Dictated by Kalli Lake MD (doctor of radiology). Dr. TYLER Simmons have personally reviewed and interpreted this examination/study. This report was electronically signed by TYLER LUCERO on 10/27/2019 5:01PM . Tyrone Solis MD CT ORDERABLES * CT CHEST ABDOMEN PELVIS W CONT (10/27/2019 3:52 PM FIN[employer] SPECIALIST) Anatomical Region Laterality Modality Chest, Abdomen, Pelvis Computed Tomography 10/27/2019 4:42 PM [employer] SPECIALIST Impressions 10/27/2019 5:19 PM [employer] SPECIALIST Impression: 1.Postoperative changes associated with midline laparotomy, [...] 5:19 PM . Narrative 10/27/2019 5:19 PM [employer] SPECIALIST EXAMINATION: Computed tomography (CT) of the chest, [...] Solis MD CT ORDERABLES * (ABNORMAL) PT-INR [facility] (10/27/2019 2:40 PM FIN[employer] SPECIALIST) PT 15.3(H) 12.1 - 14.8 Seconds 10/27/2019 2:57 PM FIN[employer]AN SPECIALIST [facility] INR 1.3 See Comment 10/27/2019 2:57 PM FIN[employer]AN SPECIALIST [facility] Comment:The suggested therap eutic range for standard coumadin (warfarin) therapy is an INR of 2.0-3.0. For high-risk patients (Mechanical Mitral Valve Prosthesis, etc.), the suggested prophylactic therapeutic range is an INR of 2.5-3.5. Blood BLOOD SPECIMEN / Unknown Venipuncture / Unknown 10/27/2019 2:40 PM [employer] SPECIALIST 10/27/2019 2:46 PM [employer] SPECIALIST Kapil Gonsalves MD LAB - COAGULATION OR DERABLES [address] [phone] * PHOSPHORUS BLOOD (10/27/2019 2:40 PM FINAN[employer]IREMENT PLAN SPECIALIST) [facility] Phosphorus 2.8 2.3 - 4.7 mg/dL 10/27/2019 3:12 PM [facility] Blood BLOOD SPECIMEN / Unknown Venipuncture / Unknown 10/27/2019 2:40 PM [employer] SPECIALIST 10/27/2019 2:46 PM FIN[employer] SPECIALIST Kapil Gonsalves MD LAB - CHEMISTRY ORDCinthia JONES [address] [phone] * MAGNESIUM BLOOD (10/27/2019 2:40 PM FIN[employer] SPECIALIST) [facility] Magnesium 2.3 1.6 - 2.6 mg/dL 10/27/2019 3:12 PM [facility] Blood BLOOD SPECIMEN / Unknown Venipuncture / Unknown 10/27/2019 2:40 PM [employer] SPECIALIST 10/27/2019 2:46 PM FIN[employer] SPECIALIST Kapil Gonsalves MD LAB - CHEMISTRY ORDCinthia JONES [address] [phone] * (ABNORMAL) BASIC METABOLIC PANEL (CALCIUM TOTAL) (10/27/2019 2:40 PM FIN[employer]AN SPECIALIST) [facility] BUN 12 7 - 26 mg/dL 10/27/2019 3:12 PM [facility] Creatinine 0.8 0.6 - 1.2 mg/dL 10/27/2019 3:12 PM [facility] Sodium 141 136 - 145 mmol/L 10/27/2019 3:12 PM [facility] Potassium 4.7(H) 3.5 - 4.5 mmol/L 10/27/2019 3:12 PM [facility] Chloride 113(H) 98 - 107 mmol/L 10/27/2019 3:12 PM [facility] CO2 22 22 - 29 mmol/L 10/27/2019 3:12 PM [facility] Glucose 116(H) 70 - 115 mg/dL 10/27/2019 3:12 PM [facility] Calcium 8.0(L) 8.4 - 10.2 mg/dL 10/27/2019 3:12 PM [facility] Anion Gap 11 8 - 18 10/27/2019 3:12 PM [facility] BUN/Creatinine Ratio 15 7 - 23 10/27/2019 3:12 PM [facility] Osmolality Calculated 293 270 - 300 mOsm/kg 10/27/2019 3:12 PM [facility] eGFR >60 >60 mL/min/1.7 3 m2 10/27/2019 3:12 PM [facility] Blood BLOOD SPECIMEN / Unknown Venipuncture / Unknown 10/27/2019 2:40 PM [employer] SPECIALIST 10/27/2019 2:46 PM [employer] SPECIALIST Kapil Gonsalves MD LAB - CHEMISTRY ANGELA JONES [facility] Organization Address City/State/[facility] Co de Phone Number [address] [phone] * (ABNORMAL) CBC W/O DIFFERENTIAL (10/27/2019 2:40 PM FIN[employer] SPECIALIST) WBC 8.3 3.5 - 10.5 10? 3 /uL 10/27/2019 2:55 PM [facility] RBC 2.86(L) 3.90 - 5.00 10? 6 /uL 10/27/2019 2:55 PM [facility] Comment:All CBC parameters h ave been checked. Hemoglobin 8.8(L) 12.0 - 15.5 g/dL 10/27/2019 2:55 PM [facility] Comment:Confirmed by repeat analysis. Hematocrit 25.6(L) 35.0 - 45.0 % 10/27/2019 2:55 PM [facility] Comment:Confirmed by repeat analysis. MCV 89.5 81.0 - 97.0 fL 10/27/2019 2:55 PM [facility] MCH 30.8 28.0 - 34.0 pg 10/27/2019 2:55 PM [facility] MCHC 34.4 32.0 - 36.0 g/dL 10/27/2019 2:55 PM [facility] Platelet Count 87(L) 150 - 400 10? 3 /uL 10/27/2019 2:55 PM [facility] Comment:Checked with the pre vious result. RDW-SD 47.0 36.0 - 50.0 fL 10/27/2019 2:55 PM [facility] RDW-CV 14.3 11.2 - 14.8 % 10/27/2019 2:55 PM [facility] MPV 10.9 9.3 - 12.8 fL 10/27/2019 2:55 PM [facility] nRBC Absolute 0.00 0 10? 3 /uL 10/27/2019 2:55 PM [facility] nRBC Auto 0.0 0 /100 WBC 10/27/2019 2:55 PM [facility] Blood BLOOD SPECIMEN / Unknown Venipuncture / Unknown 10/27/2019 2:40 PM [employer] SPECIALIST 10/27/2019 2:46 PM [employer] SPECIALIST Kapil Gonsalves MD LAB - HEMATOLOGY ORD ERABLES [address] [phone] * (ABNORMAL) BLOOD GASES ARTERIAL (10/27/2019 2:40 PM FIN[employer]IRE[employer] SPECIALIST) pH Arterial 7.37 7.35 - 7.45 10/27/2019 2:48 PM [facility] pCO2 Arterial 36 35 - 45 mmHg 10/27/2019 2:48 PM [facility] pO2 Arterial 193 mmHg 10/27/2019 2:48 PM [facility] HCO3 Arterial 20.2(L) 22.0 - 26.0 mmol/L 10/27/2019 2:48 PM [facility] TCO2 Arterial 21.3(L) 25.0 - 29.0 mmol/L 10/27/2019 2:48 PM [facility] Base Excess Arterial -4.6(L) -2.0 - 2.0 mmol/L 10/27/2019 2:48 PM [facility] Hemoglobin Arterial 8.8(L) 12.0 - 15.5 g/dL 10/27/2019 2:48 PM [employer] SPECIALIST [facility] Oxyhemoglobin Arterial 97.6 92.0 - 100.0 % 10/27/2019 2:48 PM [facility] Carboxyhemoglobin 0.3 0.0 - 3.0 % 10/27/2019 2:48 PM [facility] Methemoglobin 0.6 0.0 - 2.0 % 10/27/2019 2:48 PM [facility] FI O2 Arterial 40.0 % 10/27/2019 2:48 PM [employer] SPECIALIST [facility] Blood, arterial ARTERIAL BLOOD SPECIMEN / Unknown Arterial Puncture / Unknown 10/27/2019 2:40 PM [employer] SPECIALIST 10/27/2019 2:46 PM [employer] SPECIALIST Nano Garces MD LAB - BLOOD GAS ES ORDERABLES [address] [phone] * TRANSFUSE RED BLOOD CELL LEUKOREDUCED UNIT(S) (10/27/2019 1:27 PM [employer] SPECIALIST) Kapil Gonsalves MD NURSING - BLOOD PROD TRANSFUSION * TRANSFUSE RED BLOOD CELL LEUKOREDUCED UNIT(S) (10/27/2019 1:03 PM FIN[employer]IREMENT [employer]AN SPECIALIST) Kapil Gonsalves MD NURSING - BLOOD PROD TRANSFUSION * TRANSFUSE FRESH FROZEN PLASMA UNIT(S) (10/27/2019 11:26 AM FIN[employer]IREMENT [employer]AN SPECIALIST) Kapil Gonsalves MD NURSING - BLOOD PROD TRANSFUSION * TRANSFUSE FRESH FROZEN PLASMA UNIT(S), 1 Units (10/27/2019 11:26 AM FINAN[employer]IREMENT PLAN SPECIALIST) Kapil Gonsalves MD NURSING - BLOOD PROD TRANSFUSION * (ABNORMAL) DIFFERENTIAL MANUAL (10/27/2019 9:55 AM [employer] SPECIALIST) WBC (corrected for NRBC) 7.5 10? 3 /uL 10/27/2019 10:36 AM [facility] Total Cell Count 100 10/27/2019 10:36 AM [facility] Neutrophils Absolute Manual 6.30 1.60 - 7.00 10? 3 /uL 10/27/2019 10:36 AM [facility] Comment:(BANDS+SEGS) x WBC = NEUT # (ANC) Lymphocyte Absolute Manual 0.75(L) 0.80 - 2.90 10? 3 /uL 10/27/2019 10:36 AM [facility] Monocytes Absolute Manual 0.45 0.14 - 0.66 10? 3 /uL 10/27/2019 10:36 AM [facility] Band % Manual 14(H) 0 - 10 % 10/27/2019 10:36 AM [facility] Neutrophil % Manual 70(H) 30 - 60 % 10/27/2019 10:36 AM [facility] Lymphocyte % Manual 10(L) 20 - 45 % 10/27/2019 10:36 AM [facility] Monocytes % Manual 6 2 - 10 % 10/27/2019 10:36 AM [facility] Platelet Estimate Decreased( A) Adequate 10/27/2019 10:36 AM [facility] RBC Morphology Normal 10/27/2019 10:36 AM [facility] Blood BLOOD SPECIMEN / Unknown Venipuncture / Unknown 10/27/2019 9:55 AM [employer] 10/27/2019 10:03 AM [facility] [place] Sam Landry MD LAB - HEMATOLOGY OR DERABLES Performing Organization Address [facility]/State/[facility] Co de Phone Number [address] [phone] * (ABNORMAL) BLOOD GASES ARTERIAL (10/27/2019 9:55 AM [employer]) pH Arterial 7.35 7.35 - 7.45 10/27/2019 10:06 AM [facility] pCO2 Arterial 37 35 - 45 mmHg 10/27/2019 10:06 AM [facility] pO2 Arterial 192 mmHg 10/27/2019 10:06 AM [facility] HCO3 Arterial 20.1(L) 22.0 - 26.0 mmol/L 10/27/2019 10:06 AM [facility] TCO2 Arterial 21.2(L) 25.0 - 29.0 mmol/L 10/27/2019 10:06 AM [facility] Base Excess Arterial -5.0(L) -2.0 - 2.0 mmol/L 10/27/2019 10:06 AM [facility] Hemoglobin Arterial 6.2(L) 12.0 - 15.5 g/dL 10/27/2019 10:06 AM [facility] Oxyhemoglobin Arterial 97.0 92.0 - 100.0 % 10/27/2019 10:06 AM [facility] Carboxyhemoglobin 0.3 0.0 - 3.0 % 10/27/2019 10:06 AM [facility] Methemoglobin 0.9 0.0 - 2.0 % 10/27/2019 10:06 AM [facility] FI O2 Arterial 40.0 % 10/27/2019 10:06 AM [facility] Blood, arterial ARTERIAL BLOOD SPECIMEN / Unknown Arterial Puncture / Unknown 10/27/2019 9:55 AM [employer] 10/27/2019 10:03 AM [facility] [place] Sam Landry MD LAB - BLOOD GASES O RDERABLES [address] [phone] * (ABNORMAL) CBC W AUTO DIFFERENTIAL (10/27/2019 9:55 AM [facility] [place]) WBC 7.5 3.5 - 10.5 10? 3 /uL 10/27/2019 10:36 AM [facility] RBC 2.08(L) 3.90 - 5.00 10? 6 /uL 10/27/2019 10:36 AM [facility] Hemoglobin 6.5(L) 12.0 - 15.5 g/dL 10/27/2019 10:36 AM [facility] Comment:All CBC parameters h ave been checked. Hematocrit 19.4(L) 35.0 - 45.0 % 10/27/2019 10:36 AM [facility] MCV 93.3 81.0 - 97.0 fL 10/27/2019 10:36 AM [facility] MCH 31.3 28.0 - 34.0 pg 10/27/2019 10:36 AM [facility] MCHC 33.5 32.0 - 36.0 g/dL 10/27/2019 10:36 AM [facility] Platelet Count 94(L) 150 - 400 10? 3 /uL 10/27/2019 10:36 AM [facility] Comment: Checked by peripheral smear. This is an appended report. ??These results have been appended to a previously preliminary verified report. RDW-SD 46.2 36.0 - 50.0 fL 10/27/2019 10:36 AM [facility] RDW-CV 13.6 11.2 - 14.8 % 10/27/2019 10:36 AM [facility] MPV 10.7 9.3 - 12.8 fL 10/27/2019 10:36 AM [facility] nRBC Absolute 0.02(H) 0 10? 3 /uL 10/27/2019 10:36 AM [facility] nRBC Auto 0.3(H) 0 /100 WBC 10/27/2019 10:36 AM [facility] Blood BLOOD SPECIMEN / Unknown Venipuncture / Unknown 10/27/2019 9:55 AM [employer]IST 10/27/2019 10:03 AM [facility] Sam Landry MD LAB - HEMATOLOGY OR DERABLES Performing Organization Address City/State/[facility] Co de Phone Number [address] [phone] * (ABNORMAL) BASIC METABOLIC PANEL (CALCIUM TOTAL) (10/27/2019 9:55 AM [employer]IST) BUN 14 7 - 26 mg/dL 10/27/2019 10:34 AM [facility] Creatinine 0.8 0.6 - 1.2 mg/dL 10/27/2019 10:34 AM [facility] Sodium 141 136 - 145 mmol/L 10/27/2019 10:34 AM [facility] Potassium 3.8 3.5 - 4.5 mmol/L 10/27/2019 10:34 AM [facility] Chloride 110(H) 98 - 107 mmol/L 10/27/2019 10:34 AM [facility] CO2 21(L) 22 - 29 mmol/L 10/27/2019 10:34 AM [facility] Glucose 142(H) 70 - 115 mg/dL 10/27/2019 10:34 AM [facility] Calcium 8.7 8.4 - 10.2 mg/dL 10/27/2019 10:34 AM [facility] Anion Gap 14 8 - 18 10/27/2019 10:34 AM [facility] BUN/Creatinine Ratio 18 7 - 23 10/27/2019 10:34 AM [facility] Osmolality Calculated 295 270 - 300 mOsm/kg 10/27/2019 10:34 AM [facility] eGFR >60 >60 mL/min/1.7 3 m2 10/27/2019 10:34 AM [facility] Blood BLOOD SPECIMEN / Unknown Venipuncture / Unknown 10/27/2019 9:55 AM [employer]IST 10/27/2019 10:03 AM [employer]IST Sam Landry MD LAB - CHEMISTRY ORD ERABLES Performing Organization Address [facility]/ZIP Co de Phone Number [address] [phone] * PTT [facility] (10/27/2019 5:42 AM [employer] SPECIALIST) APTT 34.7 23.0 - 38.4 Seconds 10/27/2019 6:14 AM [facility] Comment:Suggested therapeuti c range for full dose I.V. unfractionated heparin therapy for venous thromboembolism is 71 to 109 seconds. Blood BLOOD SPECIMEN / Unknown Venipuncture / Unknown 10/27/2019 5:42 AM [employer]IST 10/27/2019 5:50 AM [employer]IST Rio Bhakta MD LAB - COAGULATION OR DERABLES Performing Organization Address [facility]/ZIP Co de Phone Number [address] [phone] * (ABNORMAL) PT-INR [facility] (10/27/2019 5:42 AM [employer] SPECIALIST) PT 18.6(H) 12.1 - 14.8 Seconds 10/27/2019 6:13 AM [facility] INR 1.6 See Comment 10/27/2019 6:13 AM [facility] Comment:The suggested therap eutic range for standard coumadin (warfarin) therapy is an INR of 2.0-3.0. For high-risk patients (Mechanical Mitral Valve Prosthesis, etc.), the suggested prophylactic therapeutic range is an INR of 2.5-3.5. Blood BLOOD SPECIMEN / Unknown Venipuncture / Unknown 10/27/2019 5:42 AM [employer] SPECIALIST 10/27/2019 5:50 AM [employer]IST Rio Bhakta MD LAB - COAGULATION OR DERABLES Performing Organization Address [facility]/ZIP Co de Phone Number [address] [phone] * (ABNORMAL) PHOSPHORUS BLOOD (10/27/2019 5:42 AM [employer] SPECIALIST) Phosphorus 5.1(H) 2.3 - 4.7 mg/dL 10/27/2019 6:09 AM [facility] Blood BLOOD SPECIMEN / Unknown Venipuncture / Unknown 10/27/2019 5:42 AM [employer]IST 10/27/2019 5:50 AM [employer] SPECIALIST Rio Bhakta MD LAB - CHEMISTRY ORDE RABLES Performing Organization Address [facility]/ZIP Co de Phone Number [address] [phone] * (ABNORMAL) BLOOD GASES ARTERIAL (10/27/2019 4:12 AM [employer]IST) pH Arterial 7.30(L) 7.35 - 7.45 10/27/2019 4:21 AM [facility] pCO2 Arterial 45 35 - 45 mmHg 10/27/2019 4:21 AM [facility] pO2 Arterial 205 mmHg 10/27/2019 4:21 AM [facility] HCO3 Arterial 21.5(L) 22.0 - 26.0 mmol/L 10/27/2019 4:21 AM [facility] TCO2 Arterial 22.9(L) 25.0 - 29.0 mmol/L 10/27/2019 4:21 AM [facility] Base Excess Arterial -4.7(L) -2.0 - 2.0 mmol/L 10/27/2019 4:21 AM [facility] Hemoglobin Arterial 9.4(L) 12.0 - 15.5 g/dL 10/27/2019 4:21 AM [facility] Oxyhemoglobin Arterial 97.8 92.0 - 100.0 % 10/27/2019 4:21 AM [facility] Carboxyhemoglobin 0.3 0.0 - 3.0 % 10/27/2019 4:21 AM [facility] Methemoglobin 0.5 0.0 - 2.0 % 10/27/2019 4:21 AM [facility] FI O2 Arterial 50.0 % 10/27/2019 4:21 AM [facility] Blood, arterial ARTERIAL BLOOD SPECIMEN / Unknown Arterial Puncture / Unknown 10/27/2019 4:12 AM [employer] 10/27/2019 4:16 AM [employer]IST Rio Bhakta MD LAB - BLOOD GASES OR DERABLES [address] [phone] * MAGNESIUM BLOOD (10/27/2019 4:12 AM [employer]IST) Pathologist [facility] Magnesium 1.7 1.6 - 2.6 mg/dL 10/27/2019 4:37 AM [facility] Blood BLOOD SPECIMEN / Unknown Venipuncture / Unknown 10/27/2019 4:12 AM [employer]IST 10/27/2019 4:16 AM [employer]IST Rio Bhakta MD LAB - CHEMISTRY ORDE RABLES [address] [phone] * (ABNORMAL) CBC W AUTO DIFFERENTIAL (10/27/2019 4:12 AM [employer]IST) WBC 7.3 3.5 - 10.5 10? 3 /uL 10/27/2019 4:30 AM [facility] Comment:All CBC parameters h ave been checked. RBC 2.93(L) 3.90 - 5.00 10? 6 /uL 10/27/2019 4:30 AM [facility] Hemoglobin 9.3(L) 12.0 - 15.5 g/dL 10/27/2019 4:30 AM [facility] Hematocrit 27.6(L) 35.0 - 45.0 % 10/27/2019 4:30 AM [facility] MCV 94.2 81.0 - 97.0 fL 10/27/2019 4:30 AM [facility] MCH 31.7 28.0 - 34.0 pg 10/27/2019 4:30 AM [facility] MCHC 33.7 32.0 - 36.0 g/dL 10/27/2019 4:30 AM [facility] Platelet Count 157 150 - 400 10? 3 /uL 10/27/2019 4:30 AM [facility] RDW-SD 44.5 36.0 - 50.0 fL 10/27/2019 4:30 AM [facility] RDW-CV 12.9 11.2 - 14.8 % 10/27/2019 4:30 AM [facility] MPV 11.1 9.3 - 12.8 fL 10/27/2019 4:30 AM [facility] nRBC Absolute 0.00 0 10? 3 /uL 10/27/2019 4:30 AM [facility] nRBC Auto 0.0 0 /100 WBC 10/27/2019 4:30 AM [facility] Neutrophils % 60.7 35.0 - 70.0 % 10/27/2019 4:30 AM [facility] Lymphocytes % 33.0 19.7 - 55.1 % 10/27/2019 4:30 AM [facility] Monocytes % 5.2 3.0 - 15.0 % 10/27/2019 4:30 AM [facility] Eosinophils % 0.4 0.0 - 6.0 % 10/27/2019 4:30 AM [facility] Basophil % 0.3 0.0 - 1.5 % 10/27/2019 4:30 AM [facility] Neutrophils Absolute 4.4 1.6 - 7.0 10? 3 /uL 10/27/2019 4:30 AM [employer]IST [facility] Lymphocyte Absolute 2.4 0.8 - 2.9 10? 3 /uL 10/27/2019 4:30 AM [facility] Monocytes Absolute 0.38 0.14 - 0.66 10? 3 /uL 10/27/2019 4:30 AM [facility] Eosinophils Absolute 0.03 0.00 - 0.45 10? 3 /uL 10/27/2019 4:30 AM [facility] Basophils Absolute 0.02 0.00 - 0.06 10? 3 /uL 10/27/2019 4:30 AM [facility] Immature Granulocytes % 0.4 0.0 - 1.0 % 10/27/2019 4:30 AM [facility] Blood BLOOD SPECIMEN / Unknown Venipuncture / Unknown 10/27/2019 4:12 AM [employer]IST 10/27/2019 4:16 AM [facility] Rio Bhakta MD LAB - HEMATOLOGY ORD ERABLES [address] [phone] * (ABNORMAL) BASIC METABOLIC PANEL (CALCIUM TOTAL) (10/27/2019 4:12 AM [employer] SPECIALIST) BUN 14 7 - 26 mg/dL 10/27/2019 4:37 AM [facility] Creatinine 0.7 0.6 - 1.2 mg/dL 10/27/2019 4:37 AM [facility] Sodium 141 136 - 145 mmol/L 10/27/2019 4:37 AM [facility] Potassium 3.5 3.5 - 4.5 mmol/L 10/27/2019 4:37 AM [facility] Chloride 110(H) 98 - 107 mmol/L 10/27/2019 4:37 AM [facility] CO2 19(L) 22 - 29 mmol/L 10/27/2019 4:37 AM [facility] Glucose 223(H) 70 - 115 mg/dL 10/27/2019 4:37 AM [facility] Calcium 7.9(L) 8.4 - 10.2 mg/dL 10/27/2019 4:37 AM [facility] Anion Gap 16 8 - 18 10/27/2019 4:37 AM [facility] BUN/Creatinine Ratio 20 7 - 23 10/27/2019 4:37 AM [facility] Osmolality Calculated 299 270 - 300 mOsm/kg 10/27/2019 4:37 AM [facility] eGFR >60 >60 mL/min/1.7 3 m2 10/27/2019 4:37 AM [facility] Blood BLOOD SPECIMEN / Unknown Venipuncture / Unknown 10/27/2019 4:12 AM [employer] SPECIALIST 10/27/2019 4:16 AM [employer] SPECIALIST Rio Bhakta MD LAB - CHEMISTRY [facility]A JON[facility] Organization Address City/State/ZIP Co de Phone Number [address] [phone] * XR CHEST 1VW PORTABLE (10/27/2019 4:05 AM FIN[employer] SPECIALIST) Anatomical Region Laterality Modality Chest Radiographic Radha ging 10/27/2019 8:12 AM [employer] SPECIALIST Impressions 10/27/2019 12:50 PM [employer] SPECIALIST FINDINGS/IMPRESSION: Lines: Endotracheal tube tip projects over the mid thoracic trachea. Enteric tube tip projects over the gastric region. A right internal jugular approach CVC tip terminates over the superior vena cava. There is no focal consolidation, pleural effusion, or pneumothorax. The cardiomediastinal silhouette is normal. Dictated by Leif Smiley MD (doctor of radiology). I, Dr. ALMA ROSA CORDON have personally reviewed and interpreted this examination/study. This report was electronically signed by ALMA ROSA CORDON ??on 10/27/2019 12:50 PM . Narrative 10/27/2019 12:50 PM [employer]IST EXAMINATION: XR CHEST 1VW PORTABLE, 10/27/2019 4:06 [...] is normal. Dictated by Leif Smiley MD (doctor of radiology). I, Dr. ALMA ROSA CORDON have personally reviewed and interpreted this examination/study. This report was electronically signed by ALMA ROSA CORDON on 10/27/2019 12:50 PM . Khadar Alex DO DIAGNOSTIC IMAGING O RDERABLES * (ABNORMAL) BLOOD GASES ART COMPLETE [facility] OR (10/27/2019 3:15 AM [facility]) pH Arterial 7.37 7.35 - 7.45 10/27/2019 3:34 AM [facility] pCO2 Arterial 39 35 - 45 mmHg 10/27/2019 3:34 AM [facility] pO2 Arterial 282 mmHg 10/27/2019 3:34 AM [facility] HCO3 Arterial 21.9(L) 22.0 - 26.0 mmol/L 10/27/2019 3:34 AM [facility] TCO2 Arterial 23.1(L) 25.0 - 29.0 mmol/L 10/27/2019 3:34 AM [facility] Base Excess Arterial -3.2(L) -2.0 - 2.0 mmol/L 10/27/2019 3:34 AM [facility] Hemoglobin Arterial 8.0(L) 12.0 - 15.5 g/dL 10/27/2019 3:34 AM [facility] Oxyhemoglobin Arterial 97.6 92.0 - 100.0 % 10/27/2019 3:34 AM [facility] Carboxyhemoglobin 0.3 0.0 - 3.0 % 10/27/2019 3:34 AM [facility] Methemoglobin 0.6 0.0 - 2.0 % 10/27/2019 3:34 AM [facility] FI O2 Arterial 55.0 % 10/27/2019 3:34 AM [facility] Ionized Calcium Whole Blood 1.06 mmol/L 10/27/2019 3:34 AM [facility] Adjusted Ionized Calcium 1.04(L) 1.19 - 1.34 mmol/L 10/27/2019 3:34 AM [facility] Sodium Whole Blood 132(L) 135 - 145 mmol/L 10/27/2019 3:34 AM [facility] Potassium Whole Blood 3.2(L) 3.5 - 5.5 mmol/L 10/27/2019 3:34 AM [facility] Chloride Whole Blood 108 mmol/L 12/2019 3:34 AM [facility] Glucose Whole Blood 194(H) 70 - 110 mg/dL 10/27/2019 3:34 AM [facility] Lactic Acid Whole Blood 1.4 0.5 - 3.4 mmol/L 10/27/2019 3:34 AM [facility] Blood ARTERIAL BLOOD SPECIMEN / Unknown Venipuncture / Unknown 10/27/2019 3:15 AM [employer] SPECIALIST 10/27/2019 3:28 AM [facility] Awilda Gardner MD LAB - BLOOD GASES ORDERABLES Performing Organization Address City/State/[facility] Co de Phone Number [address] [phone] * (ABNORMAL) BLOOD GASES ART COMPLETE [facility] OR (10/27/2019 2:12 AM [facility]) pH Arterial 7.38 7.35 - 7.45 10/27/2019 2:14 AM [facility] pCO2 Arterial 38 35 - 45 mmHg 10/27/2019 2:14 AM [facility] pO2 Arterial 450 mmHg 10/27/2019 2:14 AM [facility] HCO3 Arterial 21.8(L) 22.0 - 26.0 mmol/L 10/27/2019 2:14 AM [facility] TCO2 Arterial 23.0(L) 25.0 - 29.0 mmol/L 10/27/2019 2:14 AM [facility] Base Excess Arterial -3.0(L) -2.0 - 2.0 mmol/L 10/27/2019 2:14 AM [facility] Hemoglobin Arterial 10.1(L) 12.0 - 15.5 g/dL 10/27/2019 2:14 AM [facility] Oxyhemoglobin Arterial 98.0 92.0 - 100.0 % 10/27/2019 2:14 AM [facility] Carboxyhemoglobin 0.4 0.0 - 3.0 % 10/27/2019 2:14 AM [facility] Methemoglobin 0.4 0.0 - 2.0 % 10/27/2019 2:14 AM [facility] FI O2 Arterial 80.0 % 10/27/2019 2:14 AM [facility] Ionized Calcium Whole Blood 1.21 mmol/L 10/27/2019 2:14 AM [facility] Adjusted Ionized Calcium 1.20 1.19 - 1.34 mmol/L 10/27/2019 2:14 AM [facility] Sodium Whole Blood 130(L) 135 - 145 mmol/L 10/27/2019 2:14 AM [facility] Potassium Whole Blood 3.2(L) 3.5 - 5.5 mmol/L 10/27/2019 2:14 AM [facility] Chloride Whole Blood 108 mmol/L 12/2019 2:14 AM [facility] Glucose Whole Blood 211(H) 70 - 110 mg/dL 10/27/2019 2:14 AM [facility] Lactic Acid Whole Blood 1.9 0.5 - 3.4 mmol/L 10/27/2019 2:14 AM [facility] Blood ARTERIAL BLOOD SPECIMEN / Unknown Venipuncture / Unknown 10/27/2019 2:12 AM [employer] SPECIALIST 10/27/2019 2:12 AM [facility] Awilda Gardner MD LAB - BLOOD GASES ORDERABLES [address] [phone] * PREPARE (CROSSMATCH) RBC UNIT(S), 2 Units (10/27/2019 1:43 AM FIN[employer] SPECIALIST) Unit Description LR Red Cells [facility] BLOOD [facility]ANK LAB Unit ABO O [facility] Unit Rh POS [facility]OD [facility] LAB Product Number RA1 [facility] B LOOD BANK LAB Unit Donor # [id number] [facility]OD [facility] LAB Unit Status transfused [facility] BLO OD BANK LAB Product Code [id number] [facility] BLO OD [facility] LAB Blood Type Barcode 5100 [facility] Unit Description LR Red Cells [facility] Unit ABO O [facility] Unit Rh POS [facility] BLOOD [facility] LAB Product [facility] RA1 [facility] B LOOD BANK LAB Unit Donor # [id number] [facility] Unit Status transfused [facility]LO OD [facility] LAB Product Code [id number] [facility] BLO OD [facility] LAB Blood Type Barcode 5100 [facility] B[facility]OD [facility] LAB Blood Bank BLOOD SPECIMEN / Unknown 10/27/2019 1:43 AM [employer] SPECIALIST 10/27/2019 1:43 AM [employer] SPECIALIST Kapil Gonsalves MD LAB - BLOOD BANK ORD ERABLES [facility] B[facility] LAB [address] * PREPARE FFP UNIT(S), 1 Units (10/27/2019 1:43 AM FIN[employer] SPECIALIST) Unit Description Plasma, Thawed [facility] BLOOD [facility]ANK LAB Unit ABO A [facility] BLOOD [facility] LAB Unit Rh NEG [facility] BLOOD [facility] LAB Product Number F00 [facility] B LOOD BANK LAB Unit Donor # [id number] [facility] BLOOD [facility] LAB Unit Status transfused [facility] BLO OD BANK LAB Product Code [id number] [facility] BLO OD BANK LAB Blood Type Barcode 0600 [facility] BLOOD [facility] LAB Blood Bank BLOOD SPECIMEN / Unknown 10/27/2019 1:43 AM FIN[employer] SPECIALIST 10/27/2019 1:43 AM [employer] SPECIALIST Kapil Gonsalves MD LAB - BLOOD BANK ORD ERABLES [facility] [address] * 4 Units (10/27/2019 1:43 AM FINAN[employer]IREMENT [employer] SPECIALIST) Unit Description LR Whole Blood [facility] LAB Unit ABO O [facility] Unit Rh POS [facility] B[facility] LAB Product Number WBL [facility] B LOOD [facility] LAB Unit Donor # [id number] [facility] Unit Status transfused [facility] BLO OD [facility] LAB Product Code [id number] [facility]LO OD [facility] LAB Blood Type Barcode 5100 [facility] Unit Description LR Whole Blood [facility] Unit ABO O [facility] Unit Rh POS [facility] Product Number WBL [facility] B LOOD [facility] LAB Unit Donor # [id number] [facility] Unit Status transfused [facility] BLO OD [facility] LAB Product Code [id number] [facility] LAB Blood Type Barcode 5100 [facility] Unit Description LR Whole Blood [facility] Unit ABO O [facility] Unit Rh POS [facility] Product Number WBL [facility] B LOOD [facility] LAB Unit Donor # [id number] [facility] Unit Status released [facility] BLOO D BANK LAB Product Code [id number] [facility]LO [facility] LAB Blood Type Barcode 5100 [facility] Unit Description LR Whole Blood [facility] Unit ABO O [facility] Unit Rh POS [facility] Product Number WBL [facility] B LOOD [facility] LAB Unit Donor # [id number] [facility] Unit Status released [facility] BLOO D [facility] LAB Product Code [id number] [facility]LO OD [facility] LAB Blood Type Barcode 5100 [facility] LAB Blood Bank BLOOD SPECIMEN / Unknown 10/27/2019 1:43 AM [employer] SPECIALIST 10/27/2019 1:43 AM [employer] SPECIALIST Sam Landry MD LAB - BLOOD BANK OR DERABLES [facility] LAB [address] * PREPARE PLATELET PHERESIS UNIT(S), 1 Units (10/27/2019 1:43 AM FINANCIAL RETIREMENT PLAN SPECIALIST) Unit Description PL Pheres LR IRR [facility] Unit ABO A [facility] Unit Rh NEG [facility] Product Number P6 [facility] B LOOD [facility] LAB Unit Donor # [id number] [facility] BLO[facility] Unit Status released [facility] BLOO D [facility]ANK LAB Product Code [id number] [facility]LO OD [facility] LAB Blood Type Barcode 0600 [facility] LAB Blood Bank BLOOD SPECIMEN / Unknown 10/27/2019 1:43 AM FIN[employer] SPECIALIST 10/27/2019 1:43 AM FIN[employer] SPECIALIST Fiorella Jaffe MD LAB - BLOOD BANK ORD ERABLES [facility] [address] * PREPARE FFP UNIT(S), 6 Units (10/27/2019 1:43 AM FINAN[employer]IREMENT [employer] SPECIALIST) Unit Description Plasma, Thawed [facility] LAB Unit ABO AB [facility] Unit Rh POS [facility] Product Number FF1 [facility] LO[facility] Unit Donor # [id number] [facility] Unit Status released [facility] BLOO D [facility] LAB Product Code [id number] [facility] LAB Blood Type Barcode 8400 [facility] Unit Description Plasma, Thawed [facility] Unit ABO AB [facility] Unit POS [facility] Product Number FF1 [facility] LO[facility] Unit Donor # [id number] [facility] Unit Status released [facility] BLOO D [facility] LAB Product Code [id number] [facility] LAB Blood Type Barcode 8400 [facility] Unit Description Plasma, Thawed [facility] Unit ABO AB [facility] Unit POS [facility] Product [facility] F00 [facility] B LOOD [facility]ANK LAB Unit Donor # [id number] 5 [facility] Unit Status released [facility] Product Code [id number] [facility] LAB Blood Type Barcode 8400 [facility] Unit Description Plasma, Thawed [facility] Unit ABO AB [facility] Unit Rh POS [facility] Product [facility] F00 [facility] B LOOD [facility] LAB Unit Donor # [id number] 5 [facility] Unit Status released [facility] D [facility] LAB Product [facility] [id number] [facility]LO OD BANK LAB Blood Type Barcode 8400 [facility] Blood Bank BLOOD SPECIMEN / Unknown 10/27/2019 1:43 AM [employer] 10/27/2019 1:43 AM [employer]IST Fiorella Jaffe MD LAB - BLOOD BANK ORD ERABLES [facility] LAB [address] [place] [address], [facility] * PREPARE (CROSSMATCH) RBC UNIT(S), 6 Units (10/27/2019 1:43 AM [employer]IST) Unit Description LR Red Cells [facility] B[facility] LAB Unit ABO O [facility] Unit NEG [facility] Product [facility] RL1 [facility] B LOOD BANK LAB Unit Donor # [id number] [facility] Unit Status released [facility] D [facility] Product [facility] [id number] [facility] OD BANK LAB Blood Type Barcode 9500 [facility] Unit Description LR Red Cells [facility] Unit ABO O [facility] Unit NEG [facility] Product Number RL7 [facility] B LOOD BANK LAB Unit Donor # [id number] [facility] Unit Status released [facility] Product [facility] [id number] [facility] OD BANK LAB Blood Type [facility]arcode 9500 [facility] Unit Description LR Red Cells [facility] Unit ABO O [facility] B[facility]OD BANK LAB Unit NEG [facility] BLOOD BANK LAB Product Number RA1 [facility] B LOOD BANK LAB Unit Donor # [id number] [facility] BLOOD BANK LAB Unit Status released [facility] BLOO D BANK LAB Product Code [id number] [facility] OD BANK LAB Blood Type Barcode 9500 [facility] BLOOD BANK LAB Unit Description LR Red Cells [facility] BLOOD BANK LAB Unit ABO O [facility] BLOOD BANK LAB Unit NEG [facility] BLOOD BANK LAB Product Number RL1 [facility] B LOOD BANK LAB Unit Donor # [id number] [facility] BLOOD BANK LAB Unit Status released [facility] BLOO D BANK LAB Product Code [id number] [facility] BLO OD BANK LAB Blood Type Barcode 9500 [facility] BLOOD BANK LAB Unit Description LR Red Cells [facility] BLOOD BANK LAB Unit ABO O [facility] BLOOD BANK LAB Unit NEG [facility] BLOOD BANK LAB Product Number RA2 [facility] B LOOD BANK LAB Unit Donor # [id number] [facility] BLOOD BANK LAB Unit Status released [facility] BLOO D BANK LAB Product Code [id number] [facility] BLO OD BANK LAB Blood Type Barcode 9500 [facility] BLOOD BANK LAB Unit Description LR Red Cells [facility] BLOOD BANK LAB Unit ABO O [facility] BLOOD BANK LAB Unit Rh NEG [facility] BLOOD BANK LAB Product Number RL1 [facility] B LOOD BANK LAB Unit Donor # [id number] [facility] BLOOD BANK LAB Unit Status released [facility] BLOO D BANK LAB Product Code [id number] [facility] BLO OD BANK LAB Blood Type Barcode 7840 [facility] BLOOD BANK LAB Blood Bank BLOOD SPECIMEN / Unknown 10/27/2019 1:43 AM [employer] 10/27/2019 1:43 AM [employer]IST Fiorella Jaffe MD LAB - BLOOD BANK ORD ERABLES [facility] BLOOD BANK LAB [address] * (ABNORMAL) BLOOD GASES ART COMPLETE [facility] OR (10/27/2019 1:33 AM [employer]IST) pH Arterial 7.39 7.35 - 7.45 10/27/2019 1:40 AM [facility] pCO2 Arterial 30(L) 35 - 45 mmHg 10/27/2019 1:40 AM [facility] pO2 Arterial 311 mmHg 10/27/2019 1:40 AM [facility] HCO3 Arterial 18.0(L) 22.0 - 26.0 mmol/L 10/27/2019 1:40 AM [facility] TCO2 Arterial 19.0(L) 25.0 - 29.0 mmol/L 10/27/2019 1:40 AM [facility] Base Excess Arterial -6.0(L) -2.0 - 2.0 mmol/L 10/27/2019 1:40 AM [facility] Hemoglobin Arterial 10.3(L) 12.0 - 15.5 g/dL 10/27/2019 1:40 AM [facility] Oxyhemoglobin Arterial 97.2 92.0 - 100.0 % 10/27/2019 1:40 AM [facility] Carboxyhemoglobin 1.4 0.0 - 3.0 % 10/27/2019 1:40 AM [facility] Methemoglobin 0.2 0.0 - 2.0 % 10/27/2019 1:40 AM [facility] FI O2 Arterial 99.0 % 10/27/2019 1:40 AM [facility] Ionized Calcium Whole Blood 0.97 mmol/L 10/27/2019 1:40 AM [facility] Adjusted Ionized Calcium 0.96(L) 1.19 - 1.34 mmol/L 10/27/2019 1:40 AM [facility] Sodium Whole Blood 133(L) 135 - 145 mmol/L 10/27/2019 1:40 AM [facility] Potassium Whole Blood 2.7(LL) 3.5 - 5.5 mmol/L 10/27/2019 1:40 AM [facility] Chloride Whole Blood 109 mmol/L 12/2019 1:40 AM [facility] Glucose Whole Blood 179(H) 70 - 110 mg/dL 10/27/2019 1:40 AM [facility] Lactic Acid Whole Blood 2.4 0.5 - 3.4 mmol/L 10/27/2019 1:40 AM [facility] Blood ARTERIAL BLOOD SPECIMEN / Unknown Venipuncture / Unknown 10/27/2019 1:33 AM [employer] 10/27/2019 1:38 AM [employer]IST Awilda Gardner MD LAB - BLOOD GASES ORDERABLES [address] [phone] * TYPE + SCREEN PANEL (10/27/2019 1:20 AM [employer]IST) Antibody Screen NEG 0 2:23 AM [facility] BLOOD BANK LAB ABO Rh O POS 10/27/2019 2:23 AM [facility] BLOOD BANK LAB Blood Bank BLOOD SPECIMEN / Unknown Venipuncture / Unknown 10/27/2019 1:20 AM [employer]IST 10/27/2019 1:26 AM [employer]IST Rio Bhakta MD LAB - BLOOD BANK ORD ERABLES Performing Organization Address City/[facility]/ZIP Co de Phone Number [facility] BLOOD BANK LAB [address] [place] [address] * (ABNORMAL) DIFFERENTIAL MANUAL (10/27/2019 1:19 AM [employer]) WBC (corrected for NRBC) 12.9 10? 3 /uL 10/27/2019 1:59 AM [facility] Total Cell Count 100 10/27/2019 1:59 AM [facility] Neutrophils Absolute Manual 7.10(H) 1.60 - 7.00 10? 3 /uL 10/27/2019 1:59 AM [facility] Comment:(BANDS+SEGS) x WBC = NEUT # (ANC) Lymphocyte Absolute Manual 4.64(H) 0.80 - 2.90 10? 3 /uL 10/27/2019 1:59 AM [facility] Monocytes Absolute Manual 1.03(H) 0.14 - 0.66 10? 3 /uL 10/27/2019 1:59 AM [facility] Eosinophils Absolute Manual 0.13 0.00 - 0.22 10? 3 /uL 10/27/2019 1:59 AM [facility] Neutrophil % Manual 55 30 - 60 % 10/27/2019 1:59 AM [facility] Lymphocyte % Manual 36 20 - 45 % 10/27/2019 1:59 AM [facility] Monocytes % Manual 8 2 - 10 % 10/27/2019 1:59 AM [facility] Eosinophils % Manual 1 1 - 6 % 10/27/2019 1:59 AM [facility] Platelet Estimate Adequate Adequate 10/27/2019 1:59 AM [facility] RBC Morphology Normal 10/27/2019 1:59 AM [facility] Blood BLOOD SPECIMEN / Unknown Venipuncture / Unknown 10/27/2019 1:19 AM [employer] 10/27/2019 1:22 AM [employer] Rio Bhakta MD LAB - HEMATOLOGY ORD ERABLES [address] [phone] * PTT [facility] (10/27/2019 1:19 AM [employer]IST) APTT 25.9 23.0 - 38.4 Seconds 10/27/2019 1:38 AM [facility] Comment:Suggested therapeuti c range for full dose I.V. unfractionated heparin therapy for venous thromboembolism is 71 to 109 seconds. Blood BLOOD SPECIMEN / Unknown Venipuncture / Unknown 10/27/2019 1:19 AM [employer]IST 10/27/2019 1:22 AM [employer]IST Rio Bhakta MD LAB - COAGULATION OR DERABLES Performing Organization Address [facility] de Phone Number [address] [phone] * PT-INR [facility] (10/27/2019 1:19 AM [employer]IST) Pathologist [facility] PT 13.6 12.1 - 14.8 Seconds 10/27/2019 1:37 AM [facility] INR 1.1 See Comment 10/27/2019 1:37 AM [facility] Comment:The suggested therap eutic range for standard coumadin (warfarin) therapy is an INR of 2.0-3.0. For high-risk patients (Mechanical Mitral Valve Prosthesis, etc.), the suggested prophylactic therapeutic range is an INR of 2.5-3.5. Blood BLOOD SPECIMEN / Unknown Venipuncture / Unknown 10/27/2019 1:19 AM [employer]IST 10/27/2019 1:22 AM [employer]IST Rio Bhakta MD LAB - COAGULATION OR DERABLES Performing Organization Address [facility] de Phone Number [address] [phone] * HCG BETA BLOOD QUANTITATIVE (10/27/2019 1:19 AM [facility]) Pathologist [facility] Beta-hCG Total Quantitative <2 <5 mIU/mL 10/27/2019 1:45 AM [facility] Comment: This assay is cleared for use [...] Unknown Venipuncture / Unknown 10/27/2019 1:19 AM [employer]IST 10/27/2019 1:22 AM [employer]IST Rio Bhakta MD LAB - CHEMISTRY ANGELA JONES [facility] [address] [place] [address] * (ABNORMAL) COMPREHENSIVE METABOLIC PANEL (10/27/2019 1:19 AM [employer]) BUN 14 7 - 26 mg/dL 10/27/2019 1:42 AM [facility] Creatinine 0.8 0.6 - 1.2 mg/dL 10/27/2019 1:42 AM [facility] Sodium 141 136 - 145 mmol/L 10/27/2019 1:42 AM [facility] Potassium 2.7(LL) 3.5 - 4.5 mmol/L 10/27/2019 1:42 AM [facility] Chloride 108(H) 98 - 107 mmol/L 10/27/2019 1:42 AM [facility] CO2 19(L) 22 - 29 mmol/L 10/27/2019 1:42 AM [facility] Glucose 173(H) 70 - 115 mg/dL 10/27/2019 1:42 AM [facility] Calcium 8.4 8.4 - 10.2 mg/dL 10/27/2019 1:42 AM [facility] Protein Total 6.1 6.0 - 8.3 g/dL 10/27/2019 1:42 AM [facility] Albumin 3.7 3.4 - 5.0 g/dL 10/27/2019 1:42 AM [facility] Bilirubin Total 0.5 0.2 - 1.2 mg/dL 10/27/2019 1:42 AM [facility] Alkaline Phosphatase 44 40 - 150 Units/L 10/27/2019 1:42 AM [facility] ALT 18 0 - 55 Units/L 10/27/2019 1:42 AM [facility] AST 33 5 - 34 Units/L 10/27/2019 1:42 AM [facility] Anion Gap 17 8 - 18 10/27/2019 1:42 AM [facility] BUN/Creatinine Ratio 18 7 - 23 10/27/2019 1:42 AM [facility] Osmolality Calculated 297 270 - 300 mOsm/kg 10/27/2019 1:42 AM [facility] Albumin/Globulin Ratio 1.5 1.1 - 2.3 10/27/2019 1:42 AM [facility] eGFR >60 >60 mL/min/1.7 3 m2 10/27/2019 1:42 AM [facility] Blood BLOOD SPECIMEN / Unknown Venipuncture / Unknown 10/27/2019 1:19 AM [employer]IST 10/27/2019 1:22 AM [facility] Rio Bhakta MD LAB - CHEMISTRY ANGELA JONES [address] [phone] * (ABNORMAL) CBC W AUTO DIFFERENTIAL (10/27/2019 1:19 AM [employer]IST) WBC 12.9(H) 3.5 - 10.5 10? 3 /uL 10/27/2019 1:27 AM [facility] RBC 3.32(L) 3.90 - 5.00 10? 6 /uL 10/27/2019 1:27 AM [facility] Hemoglobin 10.5(L) 12.0 - 15.5 g/dL 10/27/2019 1:27 AM [facility] Hematocrit 32.1(L) 35.0 - 45.0 % 10/27/2019 1:27 AM [facility] MCV 96.7 81.0 - 97.0 fL 10/27/2019 1:27 AM [facility] MCH 31.6 28.0 - 34.0 pg 10/27/2019 1:27 AM [facility] MCHC 32.7 32.0 - 36.0 g/dL 10/27/2019 1:27 AM [facility] Platelet Count 251 150 - 400 10? 3 /uL 10/27/2019 1:27 AM [facility] RDW-SD 41.3 36.0 - 50.0 fL 10/27/2019 1:27 AM [facility] RDW-CV 11.8 11.2 - 14.8 % 10/27/2019 1:27 AM [facility] MPV 10.7 9.3 - 12.8 fL 10/27/2019 1:27 AM [facility] nRBC Absolute 0.00 0 10? 3 /uL 10/27/2019 1:27 AM [facility] nRBC Auto 0.0 0 /100 WBC 10/27/2019 1:27 AM [facility] Blood BLOOD SPECIMEN / Unknown Venipuncture / Unknown 10/27/2019 1:19 AM [employer]IST 10/27/2019 1:22 AM [employer]IST Rio Bhakta MD LAB - HEMATOLOGY ORD ERABLES Performing Organization Address City/[facility]/ZIP Co de Phone Number [address] [phone] * ALCOHOL ETHYL BLOOD (10/27/2019 1:19 AM [employer]) Interpretation Ethanol None Detected None Detected mg/dL 10/27/2019 1:39 AM [facility] Comment:Ethanol levels less than 10 mg/dL are resulted as None detected . Blood BLOOD SPECIMEN / Unknown Venipuncture / Unknown 10/27/2019 1:19 AM [employer]IST 10/27/2019 1:22 AM [employer] SPECIALIST Rio Bhakta MD LAB - CHEMISTRY ORDE RABFRANDY Performing Organization Address City/[facility]/[place] [address], [facility] [phone] * XR CHEST 1VW PORTABLE (10/27/2019 1:17 AM [employer] SPECIALIST) Anatomical Region Laterality Modality Chest Radiographic Radha ging 10/27/2019 8:12 AM [employer] SPECIALIST Impressions 10/27/2019 12:49 PM [employer] SPECIALIST IMPRESSION: No acute pulmonary process. Dictated by Lakisha Power MD (doctor of radiology). I, Dr. ALMA ROSA CORDON have personally reviewed and interpreted this examination/study. This report was electronically signed by ALMA ROSA CORDON ??on 10/27/2019 12:49 PM . Narrative 10/27/2019 12:49 PM [employer]IST EXAMINATION: XR CHEST 1VW PORTABLE HISTORY: T14.90XA: Trauma COMPARISON: No prior study is available for comparison. FINDINGS: There is mild elevation of the right hemidiaphragm. There is no focal consolidation, pleural effusion, or pneumothorax. The cardiomediastinal silhouette is normal. The visible bony thorax is intact. Procedure Note Alma Rosa Cordon, - 10/27/2019 EXAMINATION: XR CHEST 1VW PORTABLE HISTORY: T14.90XA: Trauma COMPARISON: No prior study is available for comparison. FINDINGS: There is mild elevation of the right hemidiaphragm. There is no focal consolidation, pleural effusion, or pneumothorax. The cardiomediastinal silhouette is normal. The visible bony thorax is intact. IMPRESSION: No acute pulmonary process. Dictated by Lakisha Power MD (doctor of radiology). Dr. ALMA ROSA Simmons have personally reviewed and interpreted this examination/study. This report was electronically signed by ALMA ROSA CORDON on 10/27/2019 12:49 PM . Rio Bhakta MD DIAGNOSTIC IMAGING O RDERABLES * XR PELVIS 1 OR 2VW (10/27/2019 1:17 AM [employer] SPECIALIST) Anatomical Region Laterality Modality Pelvis Radiographic Radha ging 10/27/2019 8:11 AM [employer] SPECIALIST Impressions 10/27/2019 12:49 PM [employer] SPECIALIST IMPRESSION: No acute fracture or dislocation identified. Dictated by Lakisha Power MD (residential program manager). Dr. ALMA ROSA Simmons have personally reviewed and interpreted this examination/study. This report was electronically signed by ALMA ROSA CORDON ??on 10/27/2019 12:49 PM . Narrative 10/27/2019 12:49 PM [employer]IST EXAMINATION: XR PELVIS 1 OR 2VW HISTORY: T14.90XA: Trauma COMPARISON: No prior study is available for comparison. FINDINGS: No acute fracture is identified. The bilateral hip joint spaces are preserved. The pubic symphysis is intact. The osseous architecture and density are normal. The sacroiliac joints are normal. Procedure Note Alma Rosa Cordon, - 10/27/2019 EXAMINATION: XR PELVIS 1 OR 2VW HISTORY: T14.90XA: Trauma COMPARISON: No prior study is available for comparison. FINDINGS: No acute fracture is identified. The bilateral hip joint spaces are preserved. The pubic symphysis is intact. The osseous architecture and density are normal. The sacroiliac joints are normal. IMPRESSION: No acute fracture or dislocation identified. Dictated by Lakisha Power MD (residential program manager). I, Dr. ALMA ROSA CORDON have [...] posthemorrhagic anemia Leukocytosis Leukocytosis, unspecified Abdominal pain documented in this encounter Administered Medications Inactive Administered Medications - up to 3 most recent administrations Medication Order MAR Action Action Date Dose Rate Site 0.9% NaCl infusion at 100 mL/hr, Intravenous, CONTINUOUS, Starting on [place] 10/27/19 at 0430, Until 10/29/19 at 1447 $ New Bag/Syringe 10/29/2019 9:02 AM [employer]IST 100 mL/hr Current Rate 10/28/2019 2:25 PM [employer] SPECIALIST 100 mL/hr $ New Bag/Syringe 10/28/2019 2:24 PM [employer] SPECIALIST 100 mL /hr 0.9% NaCl injection 10-40 mL 10-40 mL, [...] or lipids, and after each blood draw. 0.9% NaCl injection 3 mL 3 mL, Intracatheter, EVERY 8 HOURS, First dose on Thu10/27/19 at 0615, Until Discontinued, Flush peripheral IV catheter with 3 mL of normal saline every 8 hours. $ Given 11/02/2019 12:06 PM CDT 3 mL $ Given 10/31/2019 10:59 PM CDT 3 mL $ Given 10/31/2019 4:59 AM CDT 3 mL 0.9% NaCl injection 3 mL 3 mL, Intracatheter, EVERY 8 HOURS, First dose on Thu10/27/19 at 0615, Until Discontinued, Flush peripheral IV catheter with 3 mL of normal saline every 8 hours. $ Given 10/30/2019 5:12 AM CDT 3 mL $ Given 10/29/2019 9:45 PM [employer]IST 3 mL $ Given 10/29/2019 2:37 PM [employer] SPECIALIST 3 mL 0.9% NaCl injection 3 mL 3 mL, Intracatheter, EVERY 8 HOURS, First dose (after last modification) on Thu10/30/19 at 1400, Until Discontinued, Flush peripheral IV catheter with 3 mL of normal saline every 8 hours. $ Given 11/02/2019 12:06 PM CDT 3 mL $ Given 11/02/2019 5:50 AM CDT 3 mL $ Given 11/01/2019 10:39 PM CDT 3 mL 0.9% NaCl IV Bolus 1,000 mL, at 495.87 mL/hr, Administer over 121 Minutes, ONCE, 1 dose, On 10/29/19 at 0430 $ New Bag/Syringe 10/29/2019 5:46 AM [employer]IST 1,000 mL 495.87 mL/hr acetaminophen (OFIRMEV) injection 1,000 mg 1,000 mg, at 400 mL/hr, Intravenous, EVERY 6 HOURS, 4 doses, First dose on Thu11/01/19 at 1200, Last dose on Thu11/02/19 at 0600, See Micromedex for renal dosing guidelines. $ New Bag/Syringe 11/02/2019 5:49 AM CDT 1,000 mg 400 mL/hr $ New Bag/Syringe 11/02/2019 12:08 AM CDT 1,000 mg 400 m L/hr $ New Bag/Syringe 11/01/2019 5:59 PM CDT 1,000 mg 400 mL /hr acetaminophen (OFIRMEV) injection 1,000 mg 1,000 mg, at 400 mL/hr, Intravenous, EVERY 6 HOURS, 7 doses, First dose on [place] 11/03/19 at 1230, Last dose on Thu11/05/19 at 0500, See [email or web address] for renal dosing guidelines. $ New Bag/Syringe 11/05/2019 5:31 AM CDT 1,000 mg 400 mL/hr $ New Bag/Syringe 11/04/2019 10:27 PM CDT 1,000 mg 400 m L/hr $ New Bag/Syringe 11/04/2019 5:23 PM CDT 1,000 mg 400 mL /hr acetaminophen (TYLENOL) tablet 1,000 mg 1,000 mg, Oral, 3 TIMES DAILY (diuretics and nitrates), First dose on Thu11/07/19 at 1200, Until Discontinued $ Given 11/09/2019 8:43 AM CDT 1,000 mg $ Given 11/08/2019 3:59 AM CDT 1,000 mg albumin human 5 % infusion 25 g 25 g, at 999 mL/hr, Intravenous, ONCE, 1 dose, On Thu10/27/19 at 0515 $ New Bag/Syringe 10/27/2019 5:25 AM [employer] SPECIALIST 25 g 999 mL/hr albumin human 5 % infusion 25 g 25 g, at 999 mL/hr, Intravenous, ONCE, 1 dose, On Thu10/27/19 at 0515, Already given $ New Bag/Syringe 10/27/2019 5:08 AM [employer] SPECIALIST 25 g 999 mL/hr artificial tears ophthalmic ointment Each Eye, EVERY 8 HOURS, First dose on Thu10/27/19 at 0615, Until Discontinued $ Given 10/29/2019 5:47 AM [employer] SPECIALIST $ Given 10/28/2019 8:58 PM [employer] SPECIALIST $ Given 10/28/2019 2:25 PM [employer] SPECIALIST calcium gluconate 2 g in 100 mL NaCl 0.675% 2 g, at 100 mL/hr, Intravenous, ONCE, 1 dose, On Thu10/29/19 at 0500 $ New Bag/Syringe 10/29/2019 6:09 AM [employer] SPECIALIST 2 g 100 mL/hr calcium gluconate 2 g in 100 mL NaCl 0.675% 2 g, at 100 mL/hr, Intravenous, ONCE, 1 dose, On Thu10/30/19 at 0300 $ New Bag/Syringe 10/30/2019 5:08 AM CDT 2 g 100 mL/hr calcium gluconate 2 g in 100 mL NaCl 0.675% 2 g, at 100 mL/hr, Intravenous, ONCE, 1 dose, On Thu11/03/19 at 0830 $ New Bag/Syringe 11/03/2019 1:10 PM CDT 2 g 100 mL/hr calcium gluconate 4 g in dextrose 5 % 140 mL IVPB Bolus 4 g, at 70 mL/hr, Intravenous, ONCE, 1 dose, On Thu10/28/19 at 0500 $ New Bag/Syringe 10/28/2019 6:21 AM [employer] SPECIALIST 4 g 70 mL/hr chlorhexidine (PERIDEX) 0.12 % oral solution 15 mL 15 mL, Mouth/Throat, 2 TIMES DAILY, First dose on Thu10/27/19 at 0900, Until Discontinued, Swab oral mucosa for 30 seconds. Do not brush teeth immediately after use. . WASTE DISPOSAL INSTRUCTIONS: Black Bin Disposal required. $ Given 10/29/2019 8:26 AM FIN[employer] SPECIALIST 15 mL $ Given 10/28/2019 8:56 PM FIN[employer]AN SPECIALIST 15 mL $ Given 10/28/2019 8:08 AM [employer] SPECIALIST 15 mL ciprofloxacin (CIPRO) 400 mg in 200 mL IVPB 400 mg, at 200 mL/hr, Intravenous, EVERY 12 HOURS, First dose on [place] 10/27/19 at 1045, Until Discontinued, Indication for anti-infective therapy: Surgical prophylaxis $ New Bag/Syringe 11/02/2019 10:45 PM CDT 400 mg 200 mL/hr $ New Bag/Syringe 11/02/2019 8:41 AM CDT 400 mg 200 mL /hr $ New Bag/Syringe 11/01/2019 10:39 PM CDT 400 mg 200 m L/hr dextrose 5% and 0.45% NaCl with KCl 20 mEq infusion at 25 mL/hr, Intravenous, CONTINUOUS, Starting on 10/29/19 at 1515, Until 11/07/19 at 1219 $ New Bag/Syringe 11/06/2019 5:11 AM CDT 25 mL/hr 25 mL/hr Current Rate 11/06/2019 4:41 AM CDT 25 mL/hr Restarted 11/05/2019 1:19 PM CDT 25 mL/hr 25 mL/hr enoxaparin (LOVENOX) injection 30 mg 30 mg, Subcutaneous, EVERY 12 HOURS, First dose on Thu10/28/19 at 1430, Until Discontinued, (for prefilled syringes) do not expel air bubble from the syringe prior to the injection Remind Patient to not rub injection site. Could cause hematoma. $ Given 11/03/2019 8:30 PM CDT 30 mg Abd Left Lower Quadr ant $ Given 11/03/2019 9:02 AM CDT 30 mg Ri ght Leg $ Given 11/02/2019 9:15 PM CDT 30 mg Ab dominal Tissue enoxaparin (LOVENOX) injection 30 mg 30 mg, [...] AM CDT 30 mg A bdominal Tissue famotidine (PEPCID) injection 20 mg 20 mg, Intravenous, 2 TIMES DAILY, First [...] a period of at least 2 minutes. $ Given 11/07/2019 8:53 PM CDT 20 mg $ Given 11/07/2019 9:57 AM CDT 20 mg $ Given 11/06/2019 9:35 PM CDT 20 mg fentaNYL (PF) (SUBLIMAZE) injection 50 mcg 50 mcg, Intravenous, EVERY 10 MIN PRN, Moderate Pain, 4 doses, Starting on [place] 10/27/19 at 0401, Until [place] 10/27/19 at 1553, Maximum total of 4 doses. If patient reaches max total dose, please consult anesthesiologist prior to further administration of pain meds. Hold pain meds if there are signs of hypoventilation., PACU $ Given 10/27/2019 4:45 AM [employer] SPECIALIST 50 mcg $ Given 10/27/2019 4:10 AM [employer] SPECIALIST 50 mcg fentaNYL (SUBLIMAZE) bolus from infusion bag 50 mcg 50 mcg, Intravenous, BOLUS FROM BAG PRN, to reach CPOT/RASS goal as indicated by infusion order, Starting on [place] 10/27/19 at 0612, Until 10/29/19 at 1610, Bolus from bag every 5 minutes to reach CPOT or RASS goal. ??Can give bolus before anticipated painful stimuli. Contact physician if unable to achieve CPOT or RASS goal after administering 4 boluses. Titrate/administer as needed for CPOT greater than 2 or RASS above goal. If a sedative is ordered, titrate/administer opioid first to achieve CPOT goal, followed by titration/administration of sedative to achieve RASS goal. Bolus From Bag 10/28/2019 3:52 AM FIN[employer] SPECIALIST 50 mcg Bolus From Bag 10/28/2019 2:48 AM FIN[employer] PLAN SPECIALIST 50 mcg Bolus From Bag 10/28/2019 2:02 AM FIN[employer]AN SPECIALIST 50 mcg fentaNYL 2500 mcg/50mL infusion 0-300 mcg/hr (0-6 mL/hr), Intravenous, CONTINUOUS, Starting on [place] 10/27/19 at 0430, Until 10/29/19 at 1610, Above CPOT or RASS goal (pain/agitated): bolus 50 mcg every 5 minutes until goal CPOT or RASS then increase rate by ordered dose.?Can give bolus before anticipated painful stimuli. Contact physician if unable to achieve CPOT or RASS goal after administering 4 boluses. At CPOT or RASS goal and no change in 4 hours: Decrease rate by 50 mcg/hr. Below CPOT or RASS goal (unarousable): Hold infusion until at goal then restart at 50% previous rate. If significant hemodynamic changes, hold or decrease rate and notify physician. Titrate/administer as needed for CPOT greater than 2 or RASS above goal. If a sedative is ordered, titrate/administer opioid first to achieve CPOT goal, followed by titration/administration of sedative to achieve RASS goal., Titration Parameters: Custom Parameters, Indication: Analgesia, Initiate infusion at: 25 mcg/hr (Standard), Titrate infusion by: 50 mcg/hr, Titrate every: 5 minutes, To maintain a: RASS score of 0 to -1 = Alert and Calm to Drowsy, CPOT score less than 3, Notify physician if: Unachievable RASS goal despite max dose, Unachievable CPOT goal despite max dose, Contact physician for: hemodynamic instability, inability to achieve CPOT/RASS goals despite maximum dosages, unable to reach CPOT/RASS goal after administering 4 boluses. Rate Change 10/29/2019 11:37 AM [employer] SPECIALIST 25 mcg/hr 0.5 mL/hr Rate Change 10/29/2019 6:51 AM [employer] SPECIALIST 50 mcg/hr 1 mL/hr $ New Bag/Syringe 10/28/2019 11:28 PM [employer] SPECIALIST 100 mcg/hr 2 mL/ hr heparinized saline 2 units/ml infusion CONTINUOUS PRN, Starting on Lee Ann 11/03/19 at 1025, Until [place] Ann 11/03/19 at 1025 $ New Bag/Syringe 11/03/2019 10:25 AM CDT 500 mL HYDROmorphone (DILAUDID) injection 0.2 mg 0.2 mg, Intravenous, EVERY 4 HOURS PRN, Moderate Pain, Starting on Thu10/28/19 at 1342, Until Thu10/28/19 at 1434 $ Given 10/28/2019 2:31 PM [employer]IST 0.2 mg HYDROmorphone (DILAUDID) injection 0.2 mg 0.2 mg, Intravenous, EVERY 1 HOUR PRN, Moderate Pain, Starting on 10/29/19 at 1608, Until 10/30/19 at 1322 $ Given 10/30/2019 8:59 AM CDT 0.2 mg $ Given 10/30/2019 3:42 AM CDT 0.2 mg HYDROmorphone (DILAUDID) injection 0.2 mg 0.2 mg, Intravenous, EVERY 4 HOURS PRN, Severe Pain, Starting on [place] 11/03/19 at 1130, Until Thu11/04/19 at 0710 $ Given 11/04/2019 5:55 AM CDT 0.2 mg $ Given 11/04/2019 12:45 AM CDT 0.2 mg $ Given 11/03/2019 8:50 PM CDT 0.2 mg HYDROmorphone (DILAUDID) injection 0.2 mg 0.2 mg, Intravenous, EVERY 8 HOURS PRN, Severe Pain, Starting on Thu11/04/19 at 0715, Until 11/07/19 at 0752 $ Given 11/04/2019 9:00 PM CDT 0.2 mg $ Given 11/04/2019 11:37 AM CDT 0.2 mg HYDROmorphone (DILAUDID) injection 0.5 mg 0.5 mg, Intravenous, EVERY 10 MIN PRN, Severe Pain, 4 doses, Starting on Lee Ann 10/27/19 at 0401, Until [place] 10/27/19 at 1553, Maximum total of 4 doses If patient reaches max total dose, please consult anesthesiologist prior to further administration of pain meds. Hold pain meds if there are signs of hypoventilation., PACU $ Given 10/27/2019 5:00 AM [employer]IST 0.5 mg $ Given 10/27/2019 4:15 AM [employer] SPECIALIST 0.5 mg HYDROmorphone (DILAUDID) injection 0.5 mg 0.5 mg, Intravenous, EVERY 2 HOURS PRN, Moderate Pain, Starting on Thu10/28/19 at 1435, Until 10/29/19 at 1337 $ Given 10/29/2019 6:58 AM [employer]IST 0.5 mg HYDROmorphone (DILAUDID) injection 1 mg 1 mg, Intravenous, EVERY 1 HOUR PRN, Moderate Pain, Starting on 10/29/19 at 1336, Until 10/29/19 at 1610 $ Given 10/29/2019 3:41 PM [employer]IST 1 mg ibuprofen (MOTRIN) tablet 400 mg 400 mg, Oral, EVERY 6 HOURS PRN, Mild Pain, Starting on 11/08/19 at 1713, Until 11/09/19 at 1327, Maximum allowable amount = 3200 mg / 24 hours. iopamidol (ISOVUE 300) 61 % contrast Oral, CONTRAST ONCE, Starting on 11/01/19 at 1710, Until Lee Ann 11/03/19 at 1709, Administer undiluted contrast for diagnostic imaging. $ Given - Contrast 11/01/2019 5:05 PM CDT 25 mL Face iopamidol (ISOVUE 370) 76 % contrast Intravenous, CONTRAST ONCE, Starting on Lee Ann 10/27/19 at 1521, Until 10/29/19 at 1520 $ Given - Contrast 10/27/2019 3:27 PM [employer]IST 100 mL iopamidol (ISOVUE 370) 76 % contrast Intravenous, CONTRAST ONCE, Starting on 11/05/19 at 1214, Until 11/06/19 at 1824 $ Given - Contrast 11/05/2019 12:14 PM CDT 95 mL lactated ringers IV bolus 1,000 mL, at 983.61 mL/hr, Administer over 61 Minutes, ONCE, 1 dose, On Lee Ann 10/27/19 at 1030 $ New Bag/Syringe 10/27/2019 10:22 AM [employer]IST 1,000 mL 983.61 mL/hr lactated ringers IV bolus 1,000 mL, at 983.61 mL/hr, Administer over 61 Minutes, ONCE, 1 dose, On Lee Ann 10/27/19 at 2030 $ New Bag/Syringe 10/27/2019 8:33 PM [employer]IST 1,000 mL 983.61 mL/hr lidocaine (LIDODERM) 5 % patch 1 patch 1 patch, Administer over 12 Hours, EVERY 24 HOURS, First dose on e 11/01/19 at 2100, Until Discontinued, Apply to abdomen and remove patch after a max of 12 hours of application within a 24 hour period. $ Applied 11/08/2019 9:34 PM CDT 1 patch Back $ Applied 11/07/2019 8:53 PM CDT 1 patch Ab dominal Tissue $ Applied 11/06/2019 9:34 PM CDT 1 patch Ba ck lidocaine (XYLOCAINE) 1 % injection Subcutaneous, ONCE PRN, Starting on Lee Ann 11/03/19 at 1025, Until Thu11/03/19 at 1025 $ Given 11/03/2019 10:25 AM CDT 10 mL See Comments LORazepam (ATIVAN) injection 0.5 mg 0.5 mg, Intravenous, EVERY 4 HOURS PRN, Anxiety, 2 doses, Starting on Thu11/02/19 at 0111, Until Thu11/02/19 at 1402 $ Given 11/02/2019 1:43 AM CDT 0.5 mg magnesium sulfate 2 g in 50 mL bolus 2 g, at 25 mL/hr, Intravenous, NOW, 1 dose, On Lee Ann 10/27/19 at 0630 $ New Bag/Syringe 10/27/2019 7:46 AM [employer]IST 2 g 25 mL/hr magnesium sulfate 2 g in 50 mL bolus 2 g, at 25 mL/hr, Administer over 120 Minutes, Intravenous, ONCE, 1 dose, On Lee Ann 10/27/19 at 1030, Infuse at 1 gm/hr $ New Bag/Syringe 10/27/2019 11:36 AM [employer]IST 2 g 25 mL/hr magnesium sulfate 2 g in 50 mL bolus 2 g, at 25 mL/hr, Administer over 120 Minutes, Intravenous, ONCE, 1 dose, On 10/29/19 at 1100, Infuse at 1 gm/hr $ New Bag/Syringe 10/29/2019 12:51 PM [employer]IST 2 g 25 mL/hr magnesium sulfate 2 g in 50 mL bolus 2 g, at 25 mL/hr, Administer over 120 Minutes, Intravenous, ONCE, 1 dose, On Lee Ann 11/03/19 at 0830, Infuse at 1 gm/hr $ New Bag/Syringe 11/03/2019 9:06 AM CDT 2 g 25 mL/hr magnesium sulfate 4 g in 100 mL bolus 4 g, at 25 mL/hr, Administer over 240 Minutes, Intravenous, ONCE, 1 dose, On Thu10/31/19 at 0900, Infuse at 1 gm/hr $ New Bag/Syringe 10/31/2019 11:59 AM CDT 4 g 25 mL/hr metroNIDAZOLE (FLAGYL) 500 mg in 100 mL IVPB 500 mg, at 200 mL/hr, Intravenous, EVERY 8 HOURS, First dose on Lee Ann 10/27/19 at 1045, Until Discontinued, Indication for anti-infective therapy: Surgical prophylaxis $ New Bag/Syringe 11/03/2019 2:48 AM CDT 500 mg 200 mL/hr $ New Bag/Syringe 11/02/2019 5:35 PM CDT 500 mg 200 mL /hr $ New Bag/Syringe 11/02/2019 12:05 PM CDT 500 mg 200 m L/hr midazolam (VERSED) 100 mg in 100 ml infusion 0-10 mg/hr (0-10 mL/hr), Intravenous, CONTINUOUS, Starting on Lee Ann 10/27/19 at 0530, Until Thu10/28/19 at 1331, Above RASS goal (agitated): Assess and treat pain first. Use bolus dose until reach goal RASS and increase rate by ordered dose. Contact MD if unable to reach RASS goal after administering 4 boluses. At RASS goal and no change in 4 hrs: Decrease rate by 1 mg/hr Below RASS goal (unarousable): Hold infusion until at goal RASS then restart at 50% previous rate Reassess RASS at least every 2 hrs. If significant hemodynamic changes , hold or decrease rate and notify MD Notify MD for inability to reach RASS goals despite maximal dosage Titrate/administer as needed to achieve RASS goal. Note: The CPOT goal should be achieved first with the use of the ordered analgesic medication prior to targeting RASS goal with the sedative., Titration Parameters: Custom Parameters, Indication: Sedation, Initiate infusion at: 1 mg/hr, Titrate infusion by: 1 mg/hr, Titrate every: 5 minutes, To maintain: RASS score of 0 to -1 = Alert and Calm to Drowsy, Notify physician if: Unachievable RASS goal despite max dose, Contact physician for: unable to reach RASS goal after administering 4 boluses, significant hemodynamic changes, inability to reach RASS goals despite maximal dosage. Restarted 10/28/2019 12:40 PM [employer]IST 5 mg/hr 5 mL/h r $ New Bag/Syringe 10/28/2019 2:31 AM [employer]IST 5 mg/hr 5 mL/h r Rate Change 10/27/2019 11:37 PM [employer]IST 6 mg/hr 6 mL/hr midazolam (VERSED) bolus from infusion bag 2 mg 2 mg, Intravenous, BOLUS FROM BAG PRN, to reach RASS goal as indicated by infusion order, Starting on Lee Ann 10/27/19 at 0401, Until Thu10/28/19 at 1345, Bolus 2 mg from bag every 5 minutes to reach RASS goal. Contact physician if unable to reach RASS goal after administering 4 boluses. Titrate/administer as needed to achieve RASS goal. Note: The CPOT goal should be achieved first with the use of the ordered analgesic medication prior to targeting RASS goal with the sedative. Bolus From Bag 10/28/2019 12:48 PM [employer]IST 2 mg Bolus From Bag 10/28/2019 3:52 AM [employer] SPECIALIST 2 mg Bolus From Bag 10/28/2019 2:02 AM [employer] SPECIALIST 2 mg morphine injection 2 mg 2 mg, Intravenous, EVERY 4 HOURS PRN, Moderate Pain, Starting on 10/30/19 at 1320, Until 11/01/19 at 0021 $ Given 10/31/2019 11:00 PM CDT 2 mg $ Given 10/31/2019 6:50 PM CDT 2 mg $ Given 10/31/2019 2:33 PM CDT 2 mg morphine injection 2 mg 2 mg, Intravenous, EVERY 4 HOURS PRN, Severe Pain, Starting on Thu11/02/19 at 0119, Until [place] 11/03/19 at 1133 $ Given 11/03/2019 8:58 AM CDT 2 mg $ Given 11/03/2019 5:09 AM CDT 2 mg $ Given 11/03/2019 1:19 AM CDT 2 mg ondansetron (ZOFRAN) injection 4 mg 4 mg, Intravenous, EVERY 4 HOURS PRN, Nausea/Vomiting, Starting on 10/29/19 at 2243, Until 10/31/19 at 0024, Administer over 2 to 5 minutes. $ Given 10/30/2019 10:14 PM CDT 4 mg $ Given 10/30/2019 6:16 PM CDT 4 mg $ Given 10/30/2019 1:14 PM CDT 4 mg ondansetron (ZOFRAN) injection 4 mg 4 mg, Intravenous, EVERY 6 HOURS PRN, Nausea/Vomiting, Starting on 11/01/19 at 1101, Until 11/07/19 at 1220, Administer over 2 to 5 minutes. $ Given 11/05/2019 12:27 AM CDT 4 mg $ Given 11/04/2019 6:20 PM CDT 4 mg $ Given 11/04/2019 12:15 PM CDT 4 mg phenol (CHLORASEPTIC) 1.4 % liquid Oral, PRN, Sore Throat, Starting on Thu11/02/19 at 0111, Until Thu11/07/19 at 1220, . WASTE DISPOSAL INSTRUCTIONS: Black Bin Disposal required. $ Given 11/02/2019 5:36 PM CDT potassium chloride 40 mEq in 0.9% NaCl 270 mL bolus 40 mEq, at 67.5 mL/hr, Administer over 4 Hours, Intravenous, ONCE, 1 dose, On [place] 10/27/19 at 1030 $ New Bag/Syringe 10/27/2019 11:36 AM [employer] SPECIALIST 40 mEq 67.5 mL/hr potassium chloride 40 mEq in 0.9% NaCl 270 mL bolus 40 mEq, at 67.5 mL/hr, Administer over 4 Hours, Intravenous, ONCE, 1 dose, On 10/29/19 at 1100 $ New Bag/Syringe 10/29/2019 11:20 AM [employer] SPECIALIST 40 mEq 67.5 mL/hr potassium chloride 40 mEq in 0.9% NaCl 270 mL bolus 40 mEq, at 67.5 mL/hr, Administer over 4 Hours, Intravenous, ONCE, 1 dose, On [place] 11/03/19 at 0830 $ New Bag/Syringe 11/03/2019 11:22 AM CDT 40 mEq 67.5 mL/hr potassium phosphate 30 mmol in dextrose 5 % 260 mL bolus 30 mmol, at 43.33 mL/hr, Administer over 6 Hours, Intravenous, ONCE, 1 dose, On Thu10/30/19 at 0300, 3 mmol phosphate = 4.4 mEq potassium $ New Bag/Syringe 10/30/2019 5:10 AM CDT 30 mmol 43.33 mL/hr potassium phosphate 30 mmol in dextrose 5 % 260 mL bolus 30 mmol, at 43.33 mL/hr, Administer over 6 Hours, Intravenous, ONCE, 1 dose, On Thu11/01/19 at 0700, 3 mmol phosphate = 4.4 mEq potassium $ New Bag/Syringe 11/01/2019 8:34 AM CDT 30 mmol 43.33 mL/hr PPN - PERIPHERAL LINE - ADULT - CLINIMIX at 84.25 mL/hr, Intravenous (Continuous Infusion), TPN - 2200, Starting on Thu11/02/19 at 2230, Until Thu11/03/19 at 2159, May be infused through a peripheral or central line HIGH ALERT MEDICATION $ New Bag/Syringe 11/02/2019 10:50 PM CDT 84.25 mL/hr PPN - PERIPHERAL LINE - ADULT - CLINIMIX at 83.33 mL/hr, Intravenous (Continuous Infusion), TPN - 2199, Starting on Thu11/03/19 at 2230, Until Thu11/03/19 at 1048, May be infused through a peripheral or central line HIGH ALERT MEDICATION $ New Bag/Syringe 11/03/2019 1:21 PM CDT 83.33 mL/hr prochlorperazine (COMPAZINE) injection 10 mg 10 mg, Intravenous, ONCE, 1 dose, On Thu11/02/19 at 0145, Max intravenous rate = 5 mg/min $ Given 11/02/2019 1:46 AM CDT 10 mg propofol (DIPRIVAN) infusion 0-80 mcg/kg/min ? 49.4 kg (0-23.712 mL/hr, rounded to 0-23.71 mL/hr), Intravenous, CONTINUOUS, Starting on Lee Ann 10/27/19 at 0430, Until [place] 10/27/19 at 1759, Above RASS goal (agitated): Assess and treat pain first. ??Increase rate by ordered dose unless hemodynamically unstable. At RASS goal and no change in 4 hours: Decrease rate by 10 mcg/kg/min. Below RASS goal (unarousable): Hold infusion until at goal RASS then restart at 50% previous rate. If significant hemodynamic changes, hold or decrease rate and notify physician. Titrate/administer as needed to achieve RASS goal. Note: The CPOT goal should be achieved first with the use of the ordered analgesic medication prior to targeting RASS goal with the sedative. Vial and Tubing should be changed and/or discarded every 12 hours., Titration Parameters: Standard Parameters, Indication: Sedation, Initiate infusion at: 5 mcg/kg/min, Titrate infusion by: 5 mcg/kg/min, Titrate every: 2 minutes, To maintain a: RASS score of 0 to -1 = Alert and Calm to Drowsy, Notify physician if: Unachievable RASS goal despite max dose, Contact physician for: Significant hemodynamic changes, inability to reach RASS goal despite maximal dosage. $ New Bag/Syringe 10/27/2019 4:29 AM [employer] SPECIALIST 25 mcg/kg/min 7.41 mL/hr propofol (DIPRIVAN) infusion 0-50 mcg/kg/min ? 65.1 kg (0-19.53 mL/hr), Intravenous, CONTINUOUS, Starting on Thu10/28/19 at 1415, Until Thu10/30/19 at 0658, Vial and Tubing should be changed and/or discarded every 12 hours., Titration Parameters: Standard Parameters, Indication: Sedation, Initiate infusion at: 5 mcg/kg/min, Titrate infusion by: 5 mcg/kg/min, Titrate every: 2 minutes, To maintain a: RASS score of 0 to -1 = Alert and Calm to Drowsy, Notify physician if: Unachievable RASS goal despite max dose Associate Infusion Device 10/29/2019 12:49 PM [employer] SPECIALIST 20 mcg/kg/min 7.81 mL/hr Rate Change 10/29/2019 11:37 AM [employer] SPECIALIST 20 mcg/kg/min 7.81 mL/ hr Rate Change 10/29/2019 7:23 AM [employer] SPECIALIST 25 mcg/kg/min 9.77 mL/h r TPN - CENTRAL LINE - ADULT at 83.54 mL/hr, Intravenous (Continuous Infusion), TPN - 2199, Starting on Lee Ann 11/03/19 at 2200, Until Thu11/04/19 at 2159, Must be infused through a Central Line HIGH ALERT MEDICATION, Total Kcalories: 900, Protein in grams: 55, Dextrose Kcalories: 680, Lipid Kcalories: 0, Salt ratio (chloride:acetate): 1:1, Volume: other (specify) Current Rate 11/04/2019 9:49 PM CDT 83.54 m L/hr Current Rate 11/04/2019 3:02 PM CDT 83.54 mL/hr Current Rate 11/04/2019 10:29 AM CDT 83.54 mL/h r TPN - CENTRAL LINE - ADULT at 83.54 mL/hr, Intravenous (Continuous Infusion), TPN - 2199, Starting on Thu11/04/19 at 2200, Until Thu11/05/19 at 2159, Must be infused through a Central Line HIGH ALERT MEDICATION, Total Kcalories: 2,160, Protein in grams: 115, Dextrose Kcalories: 1,190, Lipid Kcalories: 510, Salt ratio (chloride:acetate): 1:1, Volume: other (specify) Current Rate 11/04/2019 10:24 PM CDT 83.54 mL/hr $ New Bag/Syringe 11/04/2019 10:21 PM CDT 83.54 mL/hr TPN - CENTRAL LINE - ADULT at 83.54 mL/hr, Intravenous (Continuous Infusion), TPN - 2199, Starting on 11/05/19 at 2200, Until 11/06/19 at 2159, Must be infused through a Central Line HIGH ALERT MEDICATION, Total Kcalories: 2,160, Protein in grams: 115, Dextrose Kcalories: 1,190, Lipid Kcalories: 510, Salt ratio (chloride:acetate): 1:1, Volume: other (specify) Current Rate 11/06/2019 4:41 AM CDT 83.54 mL/hr Current Rate 11/05/2019 10:04 PM CDT 83.54 mL/h r $ New Bag/Syringe 11/05/2019 10:03 PM CDT 83.54 mL/hr TPN - CENTRAL LINE - ADULT at 83.54 mL/hr, Intravenous (Continuous Infusion), TPN - 2199, Starting on 11/06/19 at 2200, Until Thu11/07/19 at 215, Must be infused through a Central Line HIGH ALERT MEDICATION, Total Kcalories: 2,160, Protein in grams: 115, Dextrose Kcalories: 1,190, Lipid Kcalories: 510, Salt ratio (chloride:acetate): 1:1, Volume: other (specify) Current Rate 11/06/2019 9:44 PM CDT 83.54 mL/hr $ New Bag/Syringe 11/06/2019 9:42 PM CDT 83.54 mL/hr TPN - CENTRAL LINE - ADULT at 41.67 mL/hr, Intravenous (Continuous Infusion), TPN - 2199, Starting on 11/07/19 at 2200, Until Tu11/08/19 at 2159, Must be infused through a Central Line HIGH ALERT MEDICATION, Total Kcalories: 1,090, Protein in grams: 60, Dextrose Kcalories: 600, Lipid Kcalories: 250, Salt ratio (chloride:acetate): 1:1, Volume: other (specify) $ New Bag/Syringe 11/07/2019 10:10 PM CDT 41.67 mL/hr documented in this encounter Active and Recently [...] not rub injection site. Could cause hematoma. 956 ($ Given - Provider: Hanh Cole RN)2052 [...] a period of at least 2 minutes. 956 ($ Given - Provider: Hanh Cole RN)2052 ($ Given - Provider: Kimberley Kerns RN) lidocaine (LIDODERM) 5 % patch 1 patch 1 patch, Administer over 12 Hours, EVERY 24 HOURS, First dose on Thu11/01/19 at 2100, Until Discontinued, Apply to abdomen and remove patch after a max of 12 hours of application within a 24 hour period. 956 (Removed - Provider: Hanh Cole RN)2052 ($ Applied - Provider: Kimberley Kerns RN) 100 (Removed - Provider: Hanh Cole RN)2133 ($ Applied - Provider: Kimberley Kerns RN) 0844 (Removed - Provider: Hanh Cole RN) Tdap (dixilhp-nulihleaik-mvze l pertussis) (BOOSTRIX) (7y+) injection 0.5 mL [...] hours. documented in this encounter Care Teams Insole Bottom Filler Relationship Specialty Start Date End Date Laura Reid MD PCP - General Pediatrics 07/06/15 10/27/19 Laura Reid MD PCP - General Pediatrics 10/28/19 Laura Reid MD Pediatrics 10/28/19 documented as of this encounter
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
--- OUTSIDE RECORDS SUMMARY | 2024-08-30 02:59 | XMS_ITS | Encounter Summary ---
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 Venipuncture / Unknown 11/09/2019 1:54 AM CDT 11/09/2019 2:54 AM CDT Sam Palmer DO LAB - HEMATOLOGY ORD ERABLES [address] [phone] * (ABNORMAL) BASIC METABOLIC PANEL (CALCIUM TOTAL) (11/09/2019 1:54 AM CDT) BUN 13 7 - 26 mg/dL 11/09/2019 3:25 AM [facility] Creatinine 0.7 0.6 - 1.2 mg/dL 11/09/2019 3:25 AM [facility] Sodium 138 136 - 145 mmol/L 11/09/2019 3:25 AM [facility] Potassium 4.4 3.5 - 4.5 mmol/L 11/09/2019 3:25 AM [facility] Chloride 101 98 - 107 mmol/L 11/09/2019 3:25 AM [facility] CO2 20(L) 22 - 29 mmol/L 11/09/2019 3:25 AM [facility] Glucose 92 70 - 115 mg/dL 11/09/2019 3:25 AM [facility] Calcium 9.8 8.4 - 10.2 mg/dL 11/09/2019 3:25 AM [facility] Anion Gap 21(H) 8 - 18 11/09/2019 3:25 AM [facility] BUN/Creatinine Ratio 19 7 - 23 11/09/2019 3:25 AM [facility] Osmolality Calculated 286 270 - 300 mOsm/kg 11/09/2019 3:25 AM [facility] eGFR >60 >60 mL/min/1.7 3 m2 11/09/2019 3:25 AM [facility] Blood BLOOD SPECIMEN / Unknown Lab Venipuncture / Unknown 11/09/2019 1:54 AM CDT 11/09/2019 2:56 AM T Sam Palmer DO LAB - CHEMISTRY ORDE ROBERT [address] [phone] * PHOSPHORUS BLOOD (11/08/2019 3:45 AM CDT) Phosphorus 4.2 2.3 - 4.7 mg/dL 11/08/2019 4:20 AM [facility] Blood BLOOD SPECIMEN / Unknown Venipuncture / Unknown 11/08/2019 3:45 AM CDT 11/08/2019 3:49 AM CDT Sam Palmer DO LAB - CHEMISTRY ANGELA JONES Performing Organization Address [facility]/ZIP Co de Phone Number [address] [phone] * MAGNESIUM BLOOD (11/08/2019 3:45 AM CDT) Magnesium 2.0 1.6 - 2.6 mg/dL 11/08/2019 4:20 AM CDT [facility] Blood BLOOD SPECIMEN / Unknown Venipuncture / Unknown 11/08/2019 3:45 AM CDT 11/08/2019 3:49 AM CDT Sam Palmer LAB - CHEMISTRY ANGELA JONES Performing Organization Address [facility] Co de Phone Number [address] [phone] * (ABNORMAL) CBC W/O DIFFERENTIAL (11/08/2019 3:45 AM CDT) WBC 19.3(H) 3.5 - 10.5 10? 3 /uL 11/08/2019 3:55 AM CDT [facility] RBC 3.01(L) 3.90 - 5.00 10? 6 /uL 11/08/2019 3:55 AM CDT [facility] Hemoglobin 9.4(L) 12.0 - 15.5 g/dL 11/08/2019 3:55 AM CDT [facility] Hematocrit 28.4(L) 35.0 - 45.0 % 11/08/2019 3:55 AM T [facility] MCV 94.4 81.0 - 97.0 fL 11/08/2019 3:55 AM CDT [facility] MCH 31.2 28.0 - 34.0 pg 11/08/2019 3:55 AM CDT [facility] MCHC 33.1 32.0 - 36.0 g/dL 11/08/2019 3:55 AM CDT [facility] Platelet Count 691(H) 150 - 400 10? 3 /uL 11/08/2019 3:55 AM [facility] RDW-SD 53.4(H) 36.0 - 50.0 fL 11/08/2019 3:55 AM [facility] RDW-CV 15.6(H) 11.2 - 14.8 % 11/08/2019 3:55 AM [facility] MPV 9.2(L) 9.3 - 12.8 fL 11/08/2019 3:55 AM [facility] nRBC Absolute 0.00 0 10? 3 /uL 11/08/2019 3:55 AM [facility] nRBC Auto 0.0 0 /100 WBC 11/08/2019 3:55 AM [facility] Blood BLOOD SPECIMEN / Unknown Venipuncture / Unknown 11/08/2019 3:45 AM CDT 11/08/2019 3:49 AM CDT Sam Palmer DO LAB - HEMATOLOGY ORD ERABLES Performing Organization Address City/State/[facility] Co de Phone Number [address] [phone] * (ABNORMAL) BASIC METABOLIC PANEL (CALCIUM TOTAL) (11/08/2019 3:45 AM CDT) BUN 12 7 - 26 mg/dL 11/08/2019 4:20 AM [facility] Creatinine 0.7 0.6 - 1.2 mg/dL 11/08/2019 4:20 AM [facility] Sodium 135(L) 136 - 145 mmol/L 11/08/2019 4:20 AM [facility] Potassium 4.1 3.5 - 4.5 mmol/L 11/08/2019 4:20 AM [facility] Chloride 101 98 - 107 mmol/L 11/08/2019 4:20 AM [facility] CO2 23 22 - 29 mmol/L 11/08/2019 4:20 AM [facility] Glucose 104 70 - 115 mg/dL 11/08/2019 4:20 AM [facility] Calcium 9.6 8.4 - 10.2 mg/dL 11/08/2019 4:20 AM [facility] Anion Gap 15 8 - 18 11/08/2019 4:20 AM CDT [facility] BUN/Creatinine Ratio 17 7 - 23 11/08/2019 4:20 AM CDT [facility] Osmolality Calculated 280 270 - 300 mOsm/kg 11/08/2019 4:20 AM CDT [facility] eGFR >60 >60 mL/min/1.7 3 m2 11/08/2019 4:20 AM CDT [facility] Blood BLOOD SPECIMEN / Unknown Venipuncture / Unknown 11/08/2019 3:45 AM CDT 11/08/2019 3:49 AM CDT Sam Palmer DO LAB - CHEMISTRY ANGELA JONES [facility] [address] [place] [address], [facility] [phone] * C DIFFICILE [facility] AG + TOXIN A+B (11/07/2019 2:52 PM CDT) Pathologist [facility] Antigen Negative Negative, Invalid 11/07/2019 10:03 PM CDT [facility] C difficile Toxin A + B Negative Negative, Invalid 11/07/2019 10:03 PM CDT [facility] Interpretation C difficile Negative for toxigenic C. difficile Negative for toxigenic C. difficile 11/07/2019 10:03 PM CDT [facility] Stool STOOL SPECIMEN / Unknown Collection / Unknown 11/07/2019 2:52 PM CDT 11/07/2019 3:00 PM CDT oLlis Layne CERTIFIED MEDICAL CODING SPECIALIST-MACHINE PRINTER LAB - MICROBIOLOG Y ORDERABLES [facility] [address] [place] [address], [facility] [phone] * GLUCOSE - POINT OF CARE (11/07/2019 8:08 AM CDT) Pathologist [facility] Glucose WB/POC 110 70 - 115 mg/dL 11/07/2019 8:18 AM CDT [facility] Specimen Type Arterial/C apillary 11/07/2019 8:18 AM CDT [facility] Blood BLOOD SPECIMEN / Unknown 11/07/2019 8:08 AM CDT 11/07/2019 8:18 AM CDT Sam Landry MD LAB - POINT OF CARE ORDERABLES Performing Organization Address [facility]/ZIP Co de Phone Number [address] [phone] * PHOSPHORUS BLOOD (11/07/2019 3:30 AM CDT) Phosphorus 4.0 2.3 - 4.7 mg/dL 11/07/2019 4:41 AM CDT [facility] Blood BLOOD SPECIMEN / Unknown Lab Venipuncture / Unknown 11/07/2019 3:30 AM CDT 11/07/2019 4:05 AM CDT Sam Palmer DO LAB - CHEMISTRY ORDCinthia JONES Performing Organization Address [facility] Co de Phone Number [address] [phone] * MAGNESIUM BLOOD (11/07/2019 3:30 AM CDT) Magnesium 2.0 1.6 - 2.6 mg/dL 11/07/2019 4:41 AM CDT [facility] Blood BLOOD SPECIMEN / Unknown Lab Venipuncture / Unknown 11/07/2019 3:30 AM CDT 11/07/2019 4:05 AM CDT Sam Palmer DO LAB - CHEMISTRY ORDE ROBERT Performing Organization Address [facility] Co de Phone Number [address] [phone] * (ABNORMAL) CBC W/O DIFFERENTIAL (11/07/2019 3:30 AM CDT) WBC 21.0(H) 3.5 - 10.5 10? 3 /uL 11/07/2019 4:14 AM CDT [facility] RBC 2.78(L) 3.90 - 5.00 10? 6 /uL 11/07/2019 4:14 AM [facility] Hemoglobin 8.6(L) 12.0 - 15.5 g/dL 11/07/2019 4:14 AM [facility] Hematocrit 26.7(L) 35.0 - 45.0 % 11/07/2019 4:14 AM [facility] MCV 96.0 81.0 - 97.0 fL 11/07/2019 4:14 AM [facility] MCH 30.9 28.0 - 34.0 pg 11/07/2019 4:14 AM [facility] MCHC 32.2 32.0 - 36.0 g/dL 11/07/2019 4:14 AM [facility] Platelet Count 694(H) 150 - 400 10? 3 /uL 11/07/2019 4:14 AM [facility] RDW-SD 53.9(H) 36.0 - 50.0 fL 11/07/2019 4:14 AM [facility] RDW-CV 15.7(H) 11.2 - 14.8 % 11/07/2019 4:14 AM [facility] MPV 9.2(L) 9.3 - 12.8 fL 11/07/2019 4:14 AM [facility] nRBC Absolute 0.00 0 10? 3 /uL 11/07/2019 4:14 AM [facility] nRBC Auto 0.0 0 /100 WBC 11/07/2019 4:14 AM [facility] Blood BLOOD SPECIMEN / Unknown Lab Venipuncture / Unknown 11/07/2019 3:30 AM CDT 11/07/2019 4:08 AM CDT Sam Palmer DO LAB - HEMATOLOGY ORD ERABLES [place] [id number] [address] [phone] * (ABNORMAL) BASIC METABOLIC PANEL (CALCIUM TOTAL) (11/07/2019 3:30 AM CDT) BUN 12 7 - 26 mg/dL 11/07/2019 4:41 AM [facility] Creatinine 0.7 0.6 - 1.2 mg/dL 11/07/2019 4:41 AM [facility] Sodium 137 136 - 145 mmol/L 11/07/2019 4:41 AM [facility] Potassium 4.5 3.5 - 4.5 mmol/L 11/07/2019 4:41 AM [facility] Chloride 104 98 - 107 mmol/L 11/07/2019 4:41 AM [facility] CO2 20(L) 22 - 29 mmol/L 11/07/2019 4:41 AM [facility] Glucose 105 70 - 115 mg/dL 11/07/2019 4:41 AM [facility] Calcium 9.1 8.4 - 10.2 mg/dL 11/07/2019 4:41 AM [facility] Anion Gap 18 8 - 18 11/07/2019 4:41 AM [facility] BUN/Creatinine Ratio 17 7 - 23 11/07/2019 4:41 AM [facility] Osmolality Calculated 284 270 - 300 mOsm/kg 11/07/2019 4:41 AM [facility] eGFR >60 >60 mL/min/1.7 3 m2 11/07/2019 4:41 AM [facility] Blood BLOOD SPECIMEN / Unknown Lab Venipuncture / Unknown 11/07/2019 3:30 AM CDT 11/07/2019 4:05 AM CDT Sam Palmer DO LAB - CHEMISTRY ANGELA JONES [facility] Organization Address City/State/[facility] Co de Phone Number [address] [phone] * GLUCOSE - POINT OF CARE (11/06/2019 5:39 PM CDT) Glucose WB/POC 111 70 - 115 mg/dL 11/06/2019 5:40 PM [facility] Specimen Type Arterial/C apillary 11/06/2019 5:40 PM [facility] Blood BLOOD SPECIMEN / Unknown 11/06/2019 5:39 PM CDT 11/06/2019 5:40 PM CDT Sam Landry MD LAB - POINT OF CARE ORDERABLES [address] [phone] * GLUCOSE - POINT OF CARE (11/06/2019 7:49 AM CDT) Glucose WB/POC 105 70 - 115 mg/dL 11/06/2019 7:53 AM CDT [facility] Specimen Type Arterial/C apillary 11/06/2019 7:53 AM CDT [facility] Blood BLOOD SPECIMEN / Unknown 11/06/2019 7:49 AM CDT 11/06/2019 7:53 AM CDT Sam Landry MD LAB - POINT OF CARE ORDERABLES Performing Organization Address City/[facility]/ZIP Co de Phone Number [address] [phone] * PHOSPHORUS BLOOD (11/06/2019 2:19 AM CDT) Phosphorus 3.5 2.3 - 4.7 mg/dL 11/06/2019 3:22 AM CDT [facility] Blood BLOOD SPECIMEN / Unknown Lab Venipuncture / Unknown 11/06/2019 2:19 AM CDT 11/06/2019 3:02 AM CDT Sam Palmer DO LAB - CHEMISTRY [place] [address], [facility] [phone] * MAGNESIUM BLOOD (11/06/2019 2:19 AM CDT) Magnesium 2.0 1.6 - 2.6 mg/dL 11/06/2019 3:22 AM CDT [facility] Blood BLOOD SPECIMEN / Unknown Lab Venipuncture / Unknown 11/06/2019 2:19 AM CDT 11/06/2019 3:02 AM CDT Sam Spencer DO LAB - CHEMISTRY ANGELA JONES [facility] [address] [place] [address], [facility] [phone] * (ABNORMAL) CBC W/O DIFFERENTIAL (11/06/2019 2:19 AM CDT) WBC 22.4(H) 3.5 - 10.5 10? 3 /uL 11/06/2019 3:07 AM [facility] RBC 2.70(L) 3.90 - 5.00 10? 6 /uL 11/06/2019 3:07 AM [facility] Hemoglobin 8.3(L) 12.0 - 15.5 g/dL 11/06/2019 3:07 AM [facility] Hematocrit 26.0(L) 35.0 - 45.0 % 11/06/2019 3:07 AM [facility] MCV 96.3 81.0 - 97.0 fL 11/06/2019 3:07 AM [facility] MCH 30.7 28.0 - 34.0 pg 11/06/2019 3:07 AM [facility] MCHC 31.9(L) 32.0 - 36.0 g/dL 11/06/2019 3:07 AM [facility] Platelet Count 610(H) 150 - 400 10? 3 /uL 11/06/2019 3:07 AM [facility] RDW-SD 51.1(H) 36.0 - 50.0 fL 11/06/2019 3:07 AM [facility] RDW-CV 15.6(H) 11.2 - 14.8 % 11/06/2019 3:07 AM [facility] MPV 9.6 9.3 - 12.8 fL 11/06/2019 3:07 AM [facility] nRBC Absolute 0.00 0 10? 3 /uL 11/06/2019 3:07 AM [facility] nRBC Auto 0.0 0 /100 WBC 11/06/2019 3:07 AM [facility] Blood BLOOD SPECIMEN / Unknown Lab Venipuncture / Unknown 11/06/2019 2:19 AM CDT 11/06/2019 3:02 AM CDT Sam Palmer DO LAB - HEMATOLOGY ORD ERABLES [facility] [address] [phone] * (ABNORMAL) BASIC METABOLIC PANEL (CALCIUM TOTAL) (11/06/2019 2:19 AM CDT) BUN 12 7 - 26 mg/dL 11/06/2019 3:22 AM [facility] Creatinine 0.7 0.6 - 1.2 mg/dL 11/06/2019 3:22 AM [facility] Sodium 136 136 - 145 mmol/L 11/06/2019 3:22 AM [facility] Potassium 4.3 3.5 - 4.5 mmol/L 11/06/2019 3:22 AM [facility] Chloride 104 98 - 107 mmol/L 11/06/2019 3:22 AM [facility] CO2 21(L) 22 - 29 mmol/L 11/06/2019 3:22 AM [facility] Glucose 112 70 - 115 mg/dL 11/06/2019 3:22 AM [facility] Calcium 8.8 8.4 - 10.2 mg/dL 11/06/2019 3:22 AM [facility] Anion Gap 15 8 - 18 11/06/2019 3:22 AM [facility] BUN/Creatinine Ratio 17 7 - 23 11/06/2019 3:22 AM [facility] Osmolality Calculated 283 270 - 300 mOsm/kg 11/06/2019 3:22 AM [facility] eGFR >60 >60 mL/min/1.7 3 m2 11/06/2019 3:22 AM [facility] Blood BLOOD SPECIMEN / Unknown Lab Venipuncture / Unknown 11/06/2019 2:19 AM CDT 11/06/2019 3:02 AM CDT Sam Palmer DO LAB - CHEMISTRY ORDCinthia JONES [address] [phone] * GLUCOSE - POINT OF CARE (11/05/2019 8:22 PM CDT) Glucose WB/POC 97 70 - 115 mg/dL 11/05/2019 8:23 PM CDT [facility] Specimen Type Arterial/C apillary 11/05/2019 8:23 PM CDT [facility] Blood BLOOD SPECIMEN / Unknown 11/05/2019 8:22 PM CDT 11/05/2019 8:23 PM CDT Sam Landry MD LAB - POINT OF CARE ORDERABLES [address] [phone] * (ABNORMAL) GLUCOSE - POINT OF CARE (11/05/2019 2:39 PM CDT) Glucose WB/POC 120(H) 70 - 115 mg/dL 11/05/2019 2:41 PM CDT [facility] Specimen Type Arterial/C apillary 11/05/2019 2:41 PM CDT [facility] Blood BLOOD SPECIMEN / Unknown 11/05/2019 2:39 PM CDT 11/05/2019 2:41 PM CDT Sam Landry MD LAB - POINT OF CARE ORDERABLES [address] [phone] * CT CHEST ABDOMEN PELVIS W CONT [...] gastric repair. Dictated by Pio Hemphill MD (pharmacy resident). I, Dr. JERRELL ONTIVEROS M.D. have personally [...] gastric repair. Dictated by Pio Hemphill MD (pharmacy resident). I, Dr. JERRELL ONTIVEROS M.D. have personally reviewed and interpreted this examination/study. This report was electronically signed by JERRELL ONTIVEROS M.D. on11/05/2019 6:52 PM . Theodora Sheikh MD CT ORDERABLES * (ABNORMAL) GLUCOSE - POINT OF CARE (11/05/2019 6:18 AM CDT) Glucose WB/POC 133(H) 70 - 115 mg/dL 11/05/2019 6:19 AM CDT [facility] Specimen Type Arterial/C apillary 11/05/2019 6:19 AM CDT [facility] Blood BLOOD SPECIMEN / Unknown 11/05/2019 6:18 AM CDT 11/05/2019 6:19 AM CDT Sam Landry MD LAB - POINT OF CARE ORDERABLES [address] [phone] * PHOSPHORUS BLOOD (11/05/2019 2:58 AM CDT) Phosphorus 3.6 2.3 - 4.7 mg/dL 11/05/2019 3:42 AM CDT [facility] Blood BLOOD SPECIMEN / Unknown Lab Venipuncture / Unknown 11/05/2019 2:58 AM CDT 11/05/2019 3:15 AM CDT Sam Palmer DO LAB - CHEMISTRY ANGELA JONES Performing Organization Address [facility] Co de Phone Number [address] [phone] * MAGNESIUM BLOOD (11/05/2019 2:58 AM CDT) Magnesium 2.0 1.6 - 2.6 mg/dL 11/05/2019 3:42 AM CDT [facility] Blood BLOOD SPECIMEN / Unknown Lab Venipuncture / Unknown 11/05/2019 2:58 AM CDT 11/05/2019 3:15 AM CDT Sam Palmer DO LAB - CHEMISTRY ANGELA JONES Performing Organization Address City/[facility]/ZIP Co de Phone Number [address] [phone] * (ABNORMAL) CBC W/O DIFFERENTIAL (11/05/2019 2:58 AM CDT) WBC 17.5(H) 3.5 - 10.5 10? 3 /uL 11/05/2019 3:25 AM [facility] RBC 2.61(L) 3.90 - 5.00 10? 6 /uL 11/05/2019 3:25 AM [facility] Hemoglobin 8.0(L) 12.0 - 15.5 g/dL 11/05/2019 3:25 AM [facility] Hematocrit 24.7(L) 35.0 - 45.0 % 11/05/2019 3:25 AM [facility] MCV 94.6 81.0 - 97.0 fL 11/05/2019 3:25 AM [facility] MCH 30.7 28.0 - 34.0 pg 11/05/2019 3:25 AM [facility] MCHC 32.4 32.0 - 36.0 g/dL 11/05/2019 3:25 AM [facility] Platelet Count 572(H) 150 - 400 10? 3 /uL 11/05/2019 3:25 AM [facility] RDW-SD 48.2 36.0 - 50.0 fL 11/05/2019 3:25 AM [facility] RDW-CV 15.2(H) 11.2 - 14.8 % 11/05/2019 3:25 AM [facility] MPV 9.2(L) 9.3 - 12.8 fL 11/05/2019 3:25 AM [facility] nRBC Absolute 0.00 0 10? 3 /uL 11/05/2019 3:25 AM [facility] nRBC Auto 0.0 0 /100 WBC 11/05/2019 3:25 AM [facility] Blood BLOOD SPECIMEN / Unknown Lab Venipuncture / Unknown 11/05/2019 2:58 AM CDT 11/05/2019 3:15 AM T Sam Palmer DO LAB - HEMATOLOGY ORD ERABLES [facility] [address] [phone] * (ABNORMAL) BASIC METABOLIC PANEL (CALCIUM TOTAL) (11/05/2019 2:58 AM CDT) BUN 7 7 - 26 mg/dL 11/05/2019 3:42 AM [facility] Creatinine 0.7 0.6 - 1.2 mg/dL 11/05/2019 3:42 AM [facility] Sodium 139 136 - 145 mmol/L 11/05/2019 3:42 AM [facility] Potassium 4.0 3.5 - 4.5 mmol/L 11/05/2019 3:42 AM [facility] Chloride 105 98 - 107 mmol/L 11/05/2019 3:42 AM [facility] CO2 25 22 - 29 mmol/L 11/05/2019 3:42 AM [facility] Glucose 126(H) 70 - 115 mg/dL 11/05/2019 3:42 AM [facility] Calcium 8.4 8.4 - 10.2 mg/dL 11/05/2019 3:42 AM [facility] Anion Gap 13 8 - 18 11/05/2019 3:42 AM [facility] BUN/Creatinine Ratio 10 7 - 23 11/05/2019 3:42 AM [facility] Osmolality Calculated 288 270 - 300 mOsm/kg 11/05/2019 3:42 AM [facility] eGFR >60 >60 mL/min/1.7 3 m2 11/05/2019 3:42 AM [facility] Blood BLOOD SPECIMEN / Unknown Lab Venipuncture / Unknown 11/05/2019 2:58 AM CDT 11/05/2019 3:15 AM CDT Sam Palmer DO LAB - CHEMISTRY ANGELA JONES [address] [phone] * XR ABDOMEN KUB PORTABLE (11/05/2019 1:47 AM CDT) Anatomical Region Laterality Modality Abdomen Radiographic Radha ging 11/05/2019 6:58 AM CDT Impressions 11/05/2019 12:16 PM CDT IMPRESSION: A feeding tube tube has been retracted and now terminates in the body the stomach. An additional enteric tube has been removed. Dictated by Cal Sahu MD (pharmacy resident). I, Dr. ALMA ROSA CORDON have personally [...] been removed. Dictated by Cal Sahu MD (pharmacy resident). I, Dr. ALMA ROSA CORDON have personally reviewed and interpreted this examination/study. This report was electronically signed by ALMA ROSA CORDON on 11/05/2019 12:16 PM . Vasquez Wolff MD DIAGNOSTIC IMAGING O RDERABLES * (ABNORMAL) GLUCOSE - POINT OF CARE (11/05/2019 12:00 AM CDT) Glucose WB/POC 121(H) 70 - 115 mg/dL 11/05/2019 12:02 AM CDT [facility] Specimen Type Arterial/C apillary 11/05/2019 12:02 AM CDT [facility] Blood BLOOD SPECIMEN / Unknown 11/05/2019 12:00 AM CDT 11/05/2019 12:02 AM CDT Sam Landry MD LAB - POINT OF CARE ORDERABLES [address] [phone] * XR ABDOMEN KUB PORTABLE (11/04/2019 5:45 [...] the midline. Dictated by Cal Sahu MD (pharmacy resident). I, Dr. ALMA ROSA CORDON have personally [...] the midline. Dictated by Cal Sahu MD (pharmacy resident). I, Dr. ALMA ROSA CORDON have personally reviewed and interpreted this examination/study. This report was electronically signed by LAMA ROSA CORDON on 11/05/2019 11:51 AM . Sara Gamino MD DIAGNOSTIC IMAGING O RDERABLES * (ABNORMAL) RETIC COUNT (11/04/2019 5:32 PM CDT) Reticulocyte % 6.4(H) 0.4 - 2.5 % 11/04/2019 5:40 PM CDT [facility] Reticulocyte Absolute 0.17(H) 0.02 - 0.13 10? 6 /uL 11/04/2019 5:40 PM CDT [facility] Blood BLOOD SPECIMEN / Unknown Lab Venipuncture / Unknown 11/04/2019 5:32 PM CDT 11/04/2019 5:37 PM CDT Sam Palmer DO LAB - HEMATOLOGY ORD ERABLES Performing Organization Address [facility]/ZIP Co de Phone Number [address] [phone] * (ABNORMAL) VITAMIN B12 (11/04/2019 5:32 PM CDT) Pathologist [facility] Vitamin B12 908(H) 213 - 816 pg/mL 11/04/2019 6:22 PM CDT [facility] Blood BLOOD SPECIMEN / Unknown Lab Venipuncture / Unknown 11/04/2019 5:32 PM CDT 11/04/2019 5:37 PM CDT Sam Palmer DO LAB - CHEMISTRY KARENE ROBERT Performing Organization Address [facility]/ZIP Co de Phone Number [address] [phone] * EGD (11/04/2019 2:40 PM CDT) Pathologist [facility] Report Endoscopy POC Endoscopy Department Report _ [...] and ?oxygen saturations were monitored continuously. The ?[id number] was introduced through the mouth, and ?advanced [...] Procedure Code(s): ? --- Professional --- ? 02875, Esophagogastroduod enoscopy, flexible, transoral; with insertion ? of intraluminal tube or catheter Diagnosis Code(s): ?--- Professional --- ?Z98.0, Intestinal bypass and anastomosis status ?Z98.890, Other specified postprocedural states ?K31.89, Other diseases of stomach and duodenum ?R11.2, Nausea with vomiting, unspecified CPT copyright 2016 [employer]. All rights reserved. The codes documented in this report are preliminary and upon facilities custodian review may be revised to meet current compliance requirements. Bobby Napier, 11/04/2019 4:09:07 PM Note Initiated On: 11/04/2019 2:40 PM Number of Addenda: 0 ? [facility] ? [address] [address] [facility] 11/04/2019 2:40 PM CDT Bobby Napier MD GI PROCEDURE ORDERAB LES [facility] [employer] * (ABNORMAL) GLUCOSE - POINT OF CARE (11/04/2019 12:01 PM CDT) Glucose WB/POC 122(H) 70 - 115 mg/dL 11/04/2019 12:06 PM CDT [facility] Specimen Type Arterial/C apillary 11/04/2019 12:06 PM CDT [facility] Blood BLOOD SPECIMEN / Unknown 11/04/2019 12:01 PM CDT 11/04/2019 12:06 PM CDT Sam Landry MD LAB - POINT OF CARE ORDERABLES [address] [phone] * (ABNORMAL) TRANSFERRIN (11/04/2019 11:15 AM CDT) Transferrin 145(L) 174 - 382 mg/dL 11/04/2019 2:24 PM CDT [facility] Transferrin Saturation % 14(L) 16 - 50 % 11/04/2019 2:24 PM CDT [facility] Blood BLOOD SPECIMEN / Unknown Lab Venipuncture / Unknown 11/04/2019 11:15 AM CDT 11/04/2019 11:20 AM CDT Sam Palmer DO LAB - CHEMISTRY ANGELA JONES Performing Organization Address City/[facility]/ZIP Co de Phone Number [address] [phone] * (ABNORMAL) FERRITIN (11/04/2019 11:15 AM CDT) Ferritin 354(H) 13 - 204 ng/mL 11/04/2019 2:34 PM CDT [facility] Blood BLOOD SPECIMEN / Unknown Lab Venipuncture / Unknown 11/04/2019 11:15 AM CDT 11/04/2019 11:20 AM CDT Sam Palmer DO LAB - CHEMISTRY ORDCinthia JONES [address] [phone] * (ABNORMAL) IRON BLOOD (11/04/2019 11:15 AM CDT) Iron 26(L) 40 - 150 mcg/dL 11/04/2019 2:24 PM CDT [facility] Blood BLOOD SPECIMEN / Unknown Lab Venipuncture / Unknown 11/04/2019 11:15 AM CDT 11/04/2019 11:20 AM CDT Sam Palmer DO LAB - CHEMISTRY ANGELA MARINOFRANDY [address] [phone] * GLUCOSE - POINT OF CARE (11/04/2019 6:06 AM CDT) Glucose WB/POC 115 70 - 115 mg/dL 11/04/2019 6:12 AM CDT [facility] Specimen Type Arterial/C apillary 11/04/2019 6:12 AM CDT [facility] Blood BLOOD SPECIMEN / Unknown 11/04/2019 6:06 AM CDT 11/04/2019 6:12 AM CDT Sam Landry MD LAB - POINT OF CARE ORDERABLES Performing Organization Address [facility]/[place] [address], [facility] [phone] * (ABNORMAL) FOLATE (11/04/2019 3:05 AM CDT) Folate 4.4(L) 7.0 - 31.4 ng/mL 11/04/2019 6:18 AM CDT [facility] Blood BLOOD SPECIMEN / Unknown Lab Venipuncture / Unknown 11/04/2019 3:05 AM CDT 11/04/2019 4:14 AM CDT Sam Palmer DO LAB - CHEMISTRY KARENCinthia MARINOFRANDY Performing Organization Address City/[facility]/[place] [address], [facility] [phone] * PHOSPHORUS BLOOD (11/04/2019 3:05 AM CDT) Phosphorus 3.6 2.3 - 4.7 mg/dL 11/04/2019 4:45 AM CDT [facility] Blood BLOOD SPECIMEN / Unknown Lab Venipuncture / Unknown 11/04/2019 3:05 AM CDT 11/04/2019 4:14 AM CDT Sam Palmer LAB - CHEMISTRY ANGELA JONES [address] [phone] * MAGNESIUM BLOOD (11/04/2019 3:05 AM CDT) Magnesium 1.9 1.6 - 2.6 mg/dL 11/04/2019 4:45 AM CDT [facility] Blood BLOOD SPECIMEN / Unknown Lab Venipuncture / Unknown 11/04/2019 3:05 AM CDT 11/04/2019 4:14 AM CDT Sam Spencer LAB - CHEMISTRY ANGELA JONES [address] [phone] * (ABNORMAL) CBC W/O DIFFERENTIAL (11/04/2019 3:05 AM CDT) WBC 17.1(H) 3.5 - 10.5 10? 3 /uL 11/04/2019 4:30 AM T [facility] RBC 2.63(L) 3.90 - 5.00 10? 6 /uL 11/04/2019 4:30 AM T [facility] Hemoglobin 8.1(L) 12.0 - 15.5 g/dL 11/04/2019 4:30 AM [facility] Hematocrit 24.6(L) 35.0 - 45.0 % 11/04/2019 4:30 AM [facility] MCV 93.5 81.0 - 97.0 fL 11/04/2019 4:30 AM [facility] MCH 30.8 28.0 - 34.0 pg 11/04/2019 4:30 AM [facility] MCHC 32.9 32.0 - 36.0 g/dL 11/04/2019 4:30 AM [facility] Platelet Count 537(H) 150 - 400 10? 3 /uL 11/04/2019 4:30 AM [facility] RDW-SD 47.0 36.0 - 50.0 fL 11/04/2019 4:30 AM [facility] RDW-CV 14.5 11.2 - 14.8 % 11/04/2019 4:30 AM [facility] MPV 10.1 9.3 - 12.8 fL 11/04/2019 4:30 AM [facility] nRBC Absolute 0.02(H) 0 10? 3 /uL 11/04/2019 4:30 AM [facility] nRBC Auto 0.1(H) 0 /100 WBC 11/04/2019 4:30 AM [facility] Blood BLOOD SPECIMEN / Unknown Lab Venipuncture / Unknown 11/04/2019 3:05 AM CDT 11/04/2019 4:14 AM CDT Sam Palmer DO LAB - HEMATOLOGY ORD ERABLES [facility] [address] [phone] * (ABNORMAL) BASIC METABOLIC PANEL (CALCIUM TOTAL) (11/04/2019 3:05 AM CDT) BUN 5(L) 7 - 26 mg/dL 11/04/2019 4:45 AM [facility] Creatinine 0.8 0.6 - 1.2 mg/dL 11/04/2019 4:45 AM [facility] Sodium 138 136 - 145 mmol/L 11/04/2019 4:45 AM [facility] Potassium 3.7 3.5 - 4.5 mmol/L 11/04/2019 4:45 AM [facility] Chloride 105 98 - 107 mmol/L 11/04/2019 4:45 AM [facility] CO2 21(L) 22 - 29 mmol/L 11/04/2019 4:45 AM [facility] Glucose 106 70 - 115 mg/dL 11/04/2019 4:45 AM T [facility] Calcium 8.3(L) 8.4 - 10.2 mg/dL 11/04/2019 4:45 AM T [facility] Anion Gap 16 8 - 18 11/04/2019 4:45 AM T [facility] BUN/Creatinine Ratio 6(L) 7 - 23 11/04/2019 4:45 AM T [facility] Osmolality Calculated 284 270 - 300 mOsm/kg 11/04/2019 4:45 AM T [facility] eGFR >60 >60 mL/min/1.7 3 m2 11/04/2019 4:45 AM T [facility] Blood BLOOD SPECIMEN / Unknown Lab Venipuncture / Unknown 11/04/2019 3:05 AM CDT 11/04/2019 4:14 AM CDT Sam Palmer DO LAB - CHEMISTRY ANGELA JONES Performing Organization Address [facility] Co de Phone Number [address] [phone] * TRIGLYCERIDES BLOOD (11/04/2019 3:05 AM CDT) Triglycerides 77 <150 mg/dL 11/04/2019 4:45 AM T [facility] Comment: ATP III Classification of Triglycerides: ?<150 mg/dL: ??Normal ? 150 - 199 mg/dL: ??Borderline High ? 200 - 400 mg/dL: ??High ?>500 mg/dL: ??Very High Blood BLOOD SPECIMEN / Unknown Lab Venipuncture / Unknown 11/04/2019 3:05 AM CDT 11/04/2019 4:14 AM CDT Lolis Layne APRN-MACHINE PRINTER LAB - CHEMISTRY O RDERAJARED Performing Organization Address [facility]/[place] [address], [facility] [phone] * (ABNORMAL) HEPATIC FUNCTION PANEL (11/04/2019 3:05 AM CDT) Pathologist [facility] Protein Total 5.5(L) 6.0 - 8.3 g/dL 020 4:45 AM [facility] Albumin 2.9(L) 3.4 - 5.0 g/dL 11/04/2019 4:45 AM [facility] Bilirubin Total 0.4 0.2 - 1.2 mg/dL 10/22 4:45 AM [facility] Bilirubin Conjugated 0.2 0.0 - 0.5 mg/dL 11/04/2019 4:45 AM [facility] Bilirubin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 10? 3 /uL 10/29/2019 1:41 PM [facility] RBC 2.28(L) 3.90 - 5.00 10? 6 /uL 10/29/2019 1:41 PM [facility] Hemoglobin 7.0(L) 12.0 - 15.5 g/dL 10/29/2019 1:41 PM [facility] Hematocrit 20.8(L) 35.0 - 45.0 % 10/29/2019 1:41 PM [facility] MCV 91.2 81.0 - 97.0 fL 10/29/2019 1:41 PM [facility] MCH 30.7 28.0 - 34.0 pg 10/29/2019 1:41 PM [facility] MCHC 33.7 32.0 - 36.0 g/dL 10/29/2019 1:41 PM [facility] Platelet Count 118(L) 150 - 400 10? 3 /uL 10/29/2019 1:41 PM [facility] RDW-SD 49.7 36.0 - 50.0 fL 10/29/2019 1:41 PM [facility] RDW-CV 14.8 11.2 - 14.8 % 10/29/2019 1:41 PM [facility] MPV 11.1 9.3 - 12.8 fL 10/29/2019 1:41 PM [facility] nRBC Absolute 0.00 0 10? 3 /uL 10/29/2019 1:41 PM [facility] nRBC Auto 0.0 0 /100 WBC 10/29/2019 1:41 PM [facility] Blood BLOOD SPECIMEN / Unknown Venipuncture / Unknown 10/29/2019 1:03 PM CHARGER TESTER 10/29/2019 1:17 PM CHARGER TESTER Tyrone Solis MD LAB - HEMATOLOGY OR DERABLES [address] [phone] * (ABNORMAL) BLOOD GASES ARTERIAL (10/29/2019 1:03 PM CHARGER TESTER) pH Arterial 7.37 7.35 - 7.45 10/29/2019 1:20 PM [facility] pCO2 Arterial 31(L) 35 - 45 mmHg 10/29/2019 1:20 PM [facility] pO2 Arterial 130(H) 82 - 106 mmHg 10/29/2019 1:20 PM [facility] HCO3 Arterial 17.7(L) 22.0 - 26.0 mmol/L 10/29/2019 1:20 PM [facility] TCO2 Arterial 18.7(L) 25.0 - 29.0 mmol/L 10/29/2019 1:20 PM [facility] Base Excess Arterial -6.6(L) -2.0 - 2.0 mmol/L 10/29/2019 1:20 PM [facility] Hemoglobin Arterial 11.7(L) 12.0 - 15.5 g/dL 10/29/2019 1:20 PM [facility] Oxyhemoglobin Arterial 97.1 95.0 - 100.0 % 10/29/2019 1:20 PM [facility] Carboxyhemoglobin 0.3 0.0 - 3.0 % 10/29/2019 1:20 PM [facility] Methemoglobin 0.4 0.0 - 2.0 % 10/29/2019 1:20 PM [facility] FI O2 Arterial 50.0 % 10/29/2019 1:20 PM [facility] Blood, arterial ARTERIAL BLOOD SPECIMEN / Unknown Arterial Puncture / Unknown 10/29/2019 1:03 PM CHARGER TESTER 10/29/2019 1:17 PM CHARGER TESTER Tyrone Solis MD LAB - BLOOD GASES O RDERABLES [facility] [address] [phone] * (ABNORMAL) BASIC METABOLIC PANEL (CALCIUM TOTAL) (10/29/2019 1:03 PM CHARGER TESTER) BUN 4(L) 7 - 26 mg/dL 10/29/2019 1:38 PM [facility] Creatinine 0.7 0.6 - 1.2 mg/dL 10/29/2019 1:38 PM [facility] Sodium 138 136 - 145 mmol/L 10/29/2019 1:38 PM [facility] Potassium 3.5 3.5 - 4.5 mmol/L 10/29/2019 1:38 PM [facility] Chloride 109(H) 98 - 107 mmol/L 10/29/2019 1:38 PM [facility] CO2 20(L) 22 - 29 mmol/L 10/29/2019 1:38 PM [facility] Glucose 97 70 - 115 mg/dL 10/29/2019 1:38 PM [facility] Calcium 7.6(L) 8.4 - 10.2 mg/dL 10/29/2019 1:38 PM [facility] Anion Gap 13 8 - 18 10/29/2019 1:38 PM [facility] BUN/Creatinine Ratio 6(L) 7 - 23 10/29/2019 1:38 PM [facility] Osmolality Calculated 283 270 - 300 mOsm/kg 10/29/2019 1:38 PM [facility] eGFR >60 >60 mL/min/1.7 3 m2 10/29/2019 1:38 PM [facility] Blood BLOOD SPECIMEN / Unknown Venipuncture / Unknown 10/29/2019 1:03 PM CHARGER TESTER 10/29/2019 1:17 PM CHARGER TESTER Tyrone Solis MD LAB - CHEMISTRY ORD ERABLES [facility] [address] [phone] * (ABNORMAL) CBC W/O DIFFERENTIAL (10/29/2019 6:31 AM CHARGER TESTER) WBC 14.0(H) 3.5 - 10.5 10? 3 /uL 10/29/2019 6:55 AM [facility] RBC 2.39(L) 3.90 - 5.00 10? 6 /uL 10/29/2019 6:55 AM [facility] Hemoglobin 7.4(L) 12.0 - 15.5 g/dL 10/29/2019 6:55 AM [facility] Hematocrit 21.8(L) 35.0 - 45.0 % 10/29/2019 6:55 AM [facility] MCV 91.2 81.0 - 97.0 fL 10/29/2019 6:55 AM [facility] MCH 31.0 28.0 - 34.0 pg 10/29/2019 6:55 AM [facility] MCHC 33.9 32.0 - 36.0 g/dL 10/29/2019 6:55 AM [facility] Platelet Count 112(L) 150 - 400 10? 3 /uL 10/29/2019 6:55 AM [facility] RDW-SD 51.0(H) 36.0 - 50.0 fL 10/29/2019 6:55 AM [facility] RDW-CV 15.2(H) 11.2 - 14.8 % 10/29/2019 6:55 AM [facility] MPV 11.1 9.3 - 12.8 fL 10/29/2019 6:55 AM [facility] nRBC Absolute 0.00 0 10? 3 /uL 10/29/2019 6:55 AM [facility] nRBC Auto 0.0 0 /100 WBC 10/29/2019 6:55 AM [facility] Blood BLOOD SPECIMEN / Unknown Venipuncture / Unknown 10/29/2019 6:31 AM CHARGER TESTER 10/29/2019 6:36 AM CHARGER TESTER Tyrone Solis MD LAB - HEMATOLOGY OR DERABLES [facility] [address] [phone] * (ABNORMAL) BLOOD GASES ARTERIAL (10/29/2019 6:31 AM CHARGER TESTER) pH Arterial 7.38 7.35 - 7.45 10/29/2019 7:16 AM [facility] pCO2 Arterial 38 35 - 45 mmHg 10/29/2019 7:16 AM [facility] pO2 Arterial 212(H) 82 - 106 mmHg 10/29/2019 7:16 AM [facility] HCO3 Arterial 21.8(L) 22.0 - 26.0 mmol/L 10/29/2019 7:16 AM [facility] TCO2 Arterial 22.9(L) 25.0 - 29.0 mmol/L 10/29/2019 7:16 AM [facility] Base Excess Arterial -3.1(L) -2.0 - 2.0 mmol/L 10/29/2019 7:16 AM [facility] Hemoglobin Arterial 7.4(L) 12.0 - 15.5 g/dL 10/29/2019 7:16 AM [facility] Oxyhemoglobin Arterial 97.5 95.0 - 100.0 % 10/29/2019 7:16 AM [facility] Carboxyhemoglobin 0.2 0.0 - 3.0 % 10/29/2019 7:16 AM [facility] Methemoglobin 0.7 0.0 - 2.0 % 10/29/2019 7:16 AM [facility] FI O2 Arterial 40.0 % 10/29/2019 7:16 AM [facility] Blood, arterial ARTERIAL BLOOD SPECIMEN / Unknown Arterial Puncture / Unknown 10/29/2019 6:31 AM CHARGER TESTER 10/29/2019 7:14 AM [facility] Tyrone Solis MD LAB - BLOOD GASES O RDERABLES [facility] [address] [place] [address] * (ABNORMAL) BASIC METABOLIC PANEL (CALCIUM TOTAL) (10/29/2019 6:31 AM CHARGER TESTER) BUN 4(L) 7 - 26 mg/dL 10/29/2019 7:09 AM [facility] Creatinine 0.8 0.6 - 1.2 mg/dL 10/29/2019 7:09 AM [facility] Sodium 137 136 - 145 mmol/L 10/29/2019 7:09 AM [facility] Potassium 3.5 3.5 - 4.5 mmol/L 10/29/2019 7:09 AM [facility] Chloride 109(H) 98 - 107 mmol/L 10/29/2019 7:09 AM [facility] CO2 21(L) 22 - 29 mmol/L 10/29/2019 7:09 AM [facility] Glucose 83 70 - 115 mg/dL 10/29/2019 7:09 AM [facility] Calcium 7.9(L) 8.4 - 10.2 mg/dL 10/29/2019 7:09 AM [facility] Anion Gap 11 8 - 18 10/29/2019 7:09 AM [facility] BUN/Creatinine Ratio 5(L) 7 - 23 10/29/2019 7:09 AM [facility] Osmolality Calculated 280 270 - 300 mOsm/kg 10/29/2019 7:09 AM [facility] eGFR >60 >60 mL/min/1.7 3 m2 10/29/2019 7:09 AM [facility] Blood BLOOD SPECIMEN / Unknown Venipuncture / Unknown 10/29/2019 6:31 AM CHARGER TESTER 10/29/2019 6:36 AM CHARGER TESTER Tyrone Solis MD LAB - CHEMISTRY ORD ERABLES [address] [phone] * XR CHEST 1VW PORTABLE (10/29/2019 6:03 AM CHARGER TESTER) Anatomical Region Laterality Modality Chest Radiographic Radha ging 10/29/2019 8:37 AM CHARGER TESTER Impressions 10/29/2019 7:08 PM CHARGER TESTER FINDINGS/IMPRESSION: The endotracheal tube terminates in the mid to distal thoracic trachea. The enteric tube terminates in the distal stomach. A right internal jugular approach central venous catheter superimposes the superior vena cava. The lung volumes remain small. There is no focal consolidation, pleural effusion, or pneumothorax. The cardiomediastinal silhouette is stable. Dictated by Cal Sahu MD (pharmacy resident). Dr. CANDE Simmons have personally reviewed and interpreted this examination/study. This report was electronically signed by CANDE LECHUGA ??on 10/29/2019 7:08 PM . Narrative 10/29/2019 7:08 PM CHARGER TESTER EXAMINATION: XR CHEST 1VW PORTABLE HISTORY: [id number]: [...] is stable. Dictated by Cal Sahu MD (pharmacy resident). [place], Dr. CANDE LECHUGA have personally reviewed and interpreted this examination/study. This report was electronically signed by CANDE LECHUGA on 10/29/20197:08 PM . Kapil Gonsalves MD DIAGNOSTIC IMAGING O RDERABLES * (ABNORMAL) CBC W/O DIFFERENTIAL (10/29/2019 12:42 AM CHARGER TESTER) WBC 13.3(H) 3.5 - 10.5 10? 3 /uL 10/29/2019 12:55 AM CHARGER TESTER [facility] RBC 2.53(L) 3.90 - 5.00 10? 6 /uL 10/29/2019 12:55 AM CHARGER TESTER [facility] Hemoglobin 7.8(L) 12.0 - 15.5 g/dL 10/29/2019 12:55 AM CHARGER TESTER [facility] Hematocrit 22.9(L) 35.0 - 45.0 % 10/29/2019 12:55 AM [facility] MCV 90.5 81.0 - 97.0 fL 10/29/2019 12:55 AM [facility] MCH 30.8 28.0 - 34.0 pg 10/29/2019 12:55 AM [facility] MCHC 34.1 32.0 - 36.0 g/dL 10/29/2019 12:55 AM [facility] Platelet Count 102(L) 150 - 400 10? 3 /uL 10/29/2019 12:55 AM [facility] RDW-SD 50.6(H) 36.0 - 50.0 fL 10/29/2019 12:55 AM [facility] RDW-CV 15.3(H) 11.2 - 14.8 % 10/29/2019 12:55 AM [facility] MPV 11.2 9.3 - 12.8 fL 10/29/2019 12:55 AM [facility] nRBC Absolute 0.00 0 10? 3 /uL 10/29/2019 12:55 AM [facility] nRBC Auto 0.0 0 /100 WBC 10/29/2019 12:55 AM [facility] Blood BLOOD SPECIMEN / Unknown Venipuncture / Unknown 10/29/2019 12:42 AM CHARGER TESTER 10/29/2019 12:48 AM [facility] Tyrone Solis MD LAB - HEMATOLOGY OR DERABLES Performing Organization Address [facility]/State/[facility] Co de Phone Number [address] [phone] * (ABNORMAL) BLOOD GASES ARTERIAL (10/29/2019 12:42 AM CHARGER TESTER) pH Arterial 7.36 7.35 - 7.45 10/29/2019 12:51 AM [facility] pCO2 Arterial 37 35 - 45 mmHg 10/29/2019 12:51 AM [facility] pO2 Arterial 157(H) 82 - 106 mmHg 10/29/2019 12:51 AM [facility] HCO3 Arterial 20.8(L) 22.0 - 26.0 mmol/L 10/29/2019 12:51 AM [facility] TCO2 Arterial 21.9(L) 25.0 - 29.0 mmol/L 10/29/2019 12:51 AM [facility] Base Excess Arterial -4.2(L) -2.0 - 2.0 mmol/L 10/29/2019 12:51 AM [facility] Hemoglobin Arterial 7.6(L) 12.0 - 15.5 g/dL 10/29/2019 12:51 AM [facility] Oxyhemoglobin Arterial 97.3 95.0 - 100.0 % 10/29/2019 12:51 AM [facility] Carboxyhemoglobin 0.1 0.0 - 3.0 % 10/29/2019 12:51 AM [facility] Methemoglobin 0.5 0.0 - 2.0 % 10/29/2019 12:51 AM [facility] FI O2 Arterial 40.0 % 10/29/2019 12:51 AM [facility] Blood, arterial ARTERIAL BLOOD SPECIMEN / Unknown Arterial Puncture / Unknown 10/29/2019 12:42 AM CHARGER TESTER 10/29/2019 12:46 AM CHARGER TESTER Tyrone Solis MD LAB - BLOOD GASES O RDERABLES [address] [phone] * (ABNORMAL) BASIC METABOLIC PANEL (CALCIUM TOTAL) (10/29/2019 12:42 AM CHARGER TESTER) BUN 5(L) 7 - 26 mg/dL 10/29/2019 1:15 AM [facility] Creatinine 0.8 0.6 - 1.2 mg/dL 10/29/2019 1:15 AM [facility] Sodium 138 136 - 145 mmol/L 10/29/2019 1:15 AM [facility] Potassium 3.5 3.5 - 4.5 mmol/L 10/29/2019 1:15 AM [facility] Chloride 109(H) 98 - 107 mmol/L 10/29/2019 1:15 AM [facility] CO2 19(L) 22 - 29 mmol/L 10/29/2019 1:15 AM [facility] Glucose 86 70 - 115 mg/dL 10/29/2019 1:15 AM [facility] Calcium 7.9(L) 8.4 - 10.2 mg/dL 10/29/2019 1:15 AM [facility] Anion Gap 14 8 - 18 10/29/2019 1:15 AM [facility] BUN/Creatinine Ratio 6(L) 7 - 23 10/29/2019 1:15 AM [facility] Osmolality Calculated 283 270 - 300 mOsm/kg 10/29/2019 1:15 AM [facility] eGFR >60 >60 mL/min/1.7 3 m2 10/29/2019 1:15 AM [facility] Blood BLOOD SPECIMEN / Unknown Venipuncture / Unknown 10/29/2019 12:42 AM CHARGER TESTER 10/29/2019 12:48 AM CHARGER TESTER Tyrone Solis MD LAB - CHEMISTRY ORD ERABLES Performing Organization Address [facility] de Phone Number [address] [phone] * (ABNORMAL) PT-INR [facility] (10/29/2019 12:42 AM CHARGER TESTER) PT 16.4(H) 12.1 - 14.8 Seconds 10/29/2019 12:59 AM [facility] INR 1.4 See Comment 10/29/2019 12:59 AM [facility] Comment:The suggested therap eutic range for standard coumadin (warfarin) therapy is an INR of 2.0-3.0. For high-risk patients (Mechanical Mitral Valve Prosthesis, etc.), the suggested prophylactic therapeutic range is an INR of 2.5-3.5. Blood BLOOD SPECIMEN / Unknown Venipuncture / Unknown 10/29/2019 12:42 AM CHARGER TESTER 10/29/2019 12:48 AM CHARGER TESTER Nano Garces MD LAB - COAGULATI ON ORDERABLES Performing Organization Address [facility]/ZIP Co de Phone Number [address] [phone] * PHOSPHORUS BLOOD (10/29/2019 12:42 AM CHARGER TESTER) Pathologist [facility] Phosphorus 2.5 2.3 - 4.7 mg/dL 10/29/2019 1:15 AM [facility] Blood BLOOD SPECIMEN / Unknown Venipuncture / Unknown 10/29/2019 12:42 AM CHARGER TESTER 10/29/2019 12:48 AM CHARGER TESTER Nano Garces MD LAB - CHEMISTRY ORDERABLES [address] [phone] * MAGNESIUM BLOOD (10/29/2019 12:42 AM CHARGER TESTER) [facility] Magnesium 1.7 1.6 - 2.6 mg/dL 10/29/2019 1:15 AM [facility] Blood BLOOD SPECIMEN / Unknown Venipuncture / Unknown 10/29/2019 12:42 AM CHARGER TESTER 10/29/2019 12:48 AM CHARGER TESTER Nano Garces MD LAB - CHEMISTRY ORDERABLES [address] [phone] * (ABNORMAL) CBC W/O DIFFERENTIAL (10/28/2019 6:17 PM CHARGER TESTER) [facility] WBC 12.1(H) 3.5 - 10.5 10? 3 /uL 10/28/2019 6:33 PM [facility] RBC 2.49(L) 3.90 - 5.00 10? 6 /uL 10/28/2019 6:33 PM [facility] Hemoglobin 7.7(L) 12.0 - 15.5 g/dL 10/28/2019 6:33 PM [facility] Hematocrit 22.5(L) 35.0 - 45.0 % 10/28/2019 6:33 PM [facility] MCV 90.4 81.0 - 97.0 fL 10/28/2019 6:33 PM [facility] MCH 30.9 28.0 - 34.0 pg 10/28/2019 6:33 PM [facility] MCHC 34.2 32.0 - 36.0 g/dL 10/28/2019 6:33 PM [facility] Platelet Count 95(L) 150 - 400 10? 3 /uL 10/28/2019 6:33 PM [facility] RDW-SD 51.4(H) 36.0 - 50.0 fL 10/28/2019 6:33 PM [facility] RDW-CV 15.5(H) 11.2 - 14.8 % 10/28/2019 6:33 PM [facility] MPV 11.2 9.3 - 12.8 fL 10/28/2019 6:33 PM [facility] nRBC Absolute 0.00 0 10? 3 /uL 10/28/2019 6:33 PM [facility] nRBC Auto 0.0 0 /100 WBC 10/28/2019 6:33 PM [facility] Blood BLOOD SPECIMEN / Unknown Venipuncture / Unknown 10/28/2019 6:17 PM CHARGER TESTER 10/28/2019 6:28 PM CHARGER TESTER Tyrone Solis MD LAB - HEMATOLOGY OR DERABLES Performing Organization Address City/State/[facility] Co de Phone Number [address] [phone] * (ABNORMAL) BLOOD GASES ARTERIAL (10/28/2019 6:17 PM CHARGER TESTER) pH Arterial 7.42 7.35 - 7.45 10/28/2019 6:29 PM [facility] pCO2 Arterial 30(L) 35 - 45 mmHg 10/28/2019 6:29 PM [facility] pO2 Arterial 142(H) 82 - 106 mmHg 10/28/2019 6:29 PM [facility] HCO3 Arterial 19.1(L) 22.0 - 26.0 mmol/L 10/28/2019 6:29 PM [facility] TCO2 Arterial 20.0(L) 25.0 - 29.0 mmol/L 10/28/2019 6:29 PM [facility] Base Excess Arterial -4.7(L) -2.0 - 2.0 mmol/L 10/28/2019 6:29 PM [facility] Hemoglobin Arterial 7.9(L) 12.0 - 15.5 g/dL 10/28/2019 6:29 PM [facility] Oxyhemoglobin Arterial 97.3 95.0 - 100.0 % 10/28/2019 6:29 PM [facility] Carboxyhemoglobin 0.3 0.0 - 3.0 % 10/28/2019 6:29 PM [facility] Methemoglobin 0.7 0.0 - 2.0 % 10/28/2019 6:29 PM [facility] FI O2 Arterial 40.0 % 10/28/2019 6:29 PM [facility] Blood, arterial ARTERIAL BLOOD SPECIMEN / Unknown Arterial Puncture / Unknown 10/28/2019 6:17 PM CHARGER TESTER 10/28/2019 6:28 PM CHARGER TESTER Tyrone Solis MD LAB - BLOOD GASES O RDERABLES Performing Organization Address City/State/[facility] Co de Phone Number [address] [phone] * (ABNORMAL) BASIC METABOLIC PANEL (CALCIUM TOTAL) (10/28/2019 6:17 PM CHARGER TESTER) BUN 6(L) 7 - 26 mg/dL 10/28/2019 7:03 PM [facility] Creatinine 0.7 0.6 - 1.2 mg/dL 10/28/2019 7:03 PM [facility] Sodium 138 136 - 145 mmol/L 10/28/2019 7:03 PM [facility] Potassium 3.7 3.5 - 4.5 mmol/L 10/28/2019 7:03 PM [facility] Chloride 109(H) 98 - 107 mmol/L 10/28/2019 7:03 PM [facility] CO2 20(L) 22 - 29 mmol/L 10/28/2019 7:03 PM [facility] Glucose 89 70 - 115 mg/dL 10/28/2019 7:03 PM [facility] Calcium 7.6(L) 8.4 - 10.2 mg/dL 10/28/2019 7:03 PM [facility] Anion Gap 13 8 - 18 10/28/2019 7:03 PM [facility] BUN/Creatinine Ratio 9 7 - 23 10/28/2019 7:03 PM [facility] Osmolality Calculated 283 270 - 300 mOsm/kg 10/28/2019 7:03 PM [facility] eGFR >60 >60 mL/min/1.7 3 m2 10/28/2019 7:03 PM [facility] Blood BLOOD SPECIMEN / Unknown Venipuncture / Unknown 10/28/2019 6:17 PM [facility] 10/28/2019 6:28 PM [facility] Tyrone Solis MD LAB - CHEMISTRY ORD ERABLES [place] [id number] [address] [phone] * (ABNORMAL) BLOOD GASES ART COMPLETE [facility] OR (10/28/2019 2:12 PM [facility]GER TESTER) pH Arterial 7.38 7.35 - 7.45 10/28/2019 2:18 PM [facility] pCO2 Arterial 37 35 - 45 mmHg 10/28/2019 2:18 PM [facility] pO2 Arterial 133 mmHg 10/28/2019 2:18 PM [facility] HCO3 Arterial 21.4(L) 22.0 - 26.0 mmol/L 10/28/2019 2:18 PM [facility] TCO2 Arterial 22.6(L) 25.0 - 29.0 mmol/L 10/28/2019 2:18 PM [facility] Base Excess Arterial -3.3(L) -2.0 - 2.0 mmol/L 10/28/2019 2:18 PM [facility] Hemoglobin Arterial 8.6(L) 12.0 - 15.5 g/dL 10/28/2019 2:18 PM [facility] Oxyhemoglobin Arterial 97.1 92.0 - 100.0 % 10/28/2019 2:18 PM [facility] Carboxyhemoglobin 0.2 0.0 - 3.0 % 10/28/2019 2:18 PM [facility] Methemoglobin 0.2 0.0 - 2.0 % 10/28/2019 2:18 PM [facility] FI O2 Arterial 50.0 % 10/28/2019 2:18 PM [facility] Ionized Calcium Whole Blood 1.10 mmol/L 10/28/2019 2:18 PM [facility] Adjusted Ionized Calcium 1.09(L) 1.19 - 1.34 mmol/L 10/28/2019 2:18 PM [facility] Sodium Whole Blood 134(L) 135 - 145 mmol/L 10/28/2019 2:18 PM [facility] Potassium Whole Blood 3.9 3.5 - 5.5 mmol/L 10/28/2019 2:18 PM [facility] Chloride Whole Blood 106 mmol/L 01/2020 2:18 PM [facility] Glucose Whole Blood 96 70 - 110 mg/dL 10/28/2019 2:18 PM [facility] Lactic Acid Whole Blood 0.8 0.5 - 3.4 mmol/L 10/28/2019 2:18 PM [facility] Blood ARTERIAL BLOOD SPECIMEN / Unknown Venipuncture / Unknown 10/28/2019 2:12 PM [facility] 10/28/2019 2:16 PM [facility] Campbell Alcala MD LAB - BLOOD GASES OR DERABLES Performing Organization Address City/State/[facility] Co de Phone Number [address] [phone] * (ABNORMAL) CBC W/O DIFFERENTIAL (10/28/2019 2:12 PM [facility]GER TE[facility]) WBC 12.2(H) 3.5 - 10.5 10? 3 /uL 10/28/2019 2:30 PM [facility] RBC 2.71(L) 3.90 - 5.00 10? 6 /uL 10/28/2019 2:30 PM [facility] Hemoglobin 8.3(L) 12.0 - 15.5 g/dL 10/28/2019 2:30 PM [facility] Hematocrit 24.4(L) 35.0 - 45.0 % 10/28/2019 2:30 PM [facility] MCV 90.0 81.0 - 97.0 fL 10/28/2019 2:30 PM [facility] MCH 30.6 28.0 - 34.0 pg 10/28/2019 2:30 PM [facility] MCHC 34.0 32.0 - 36.0 g/dL 10/28/2019 2:30 PM [facility] Platelet Count 98(L) 150 - 400 10? 3 /uL 10/28/2019 2:30 PM [facility] Comment:Checked with previou s results. RDW-SD 51.5(H) 36.0 - 50.0 fL 10/28/2019 2:30 PM [facility] RDW-CV 15.8(H) 11.2 - 14.8 % 10/28/2019 2:30 PM [facility] MPV 10.8 9.3 - 12.8 fL 10/28/2019 2:30 PM [facility] nRBC Absolute 0.00 0 10? 3 /uL 10/28/2019 2:30 PM [facility] nRBC Auto 0.0 0 /100 WBC 10/28/2019 2:30 PM [facility] Blood BLOOD SPECIMEN / Unknown Venipuncture / Unknown 10/28/2019 2:12 PM [facility] 10/28/2019 2:17 PM [facility] Tyrone Solis MD LAB - HEMATOLOGY OR DERABLES Performing Organization Address [facility]/State/[facility] Co de Phone Number [address] [phone] * (ABNORMAL) BASIC METABOLIC PANEL (CALCIUM TOTAL) (10/28/2019 2:12 PM [facility] TE[facility]) BUN 6(L) 7 - 26 mg/dL 10/28/2019 2:40 PM [facility] Creatinine 0.7 0.6 - 1.2 mg/dL 10/28/2019 2:40 PM [facility] Sodium 138 136 - 145 mmol/L 10/28/2019 2:40 PM [facility] Potassium 3.9 3.5 - 4.5 mmol/L 10/28/2019 2:40 PM [facility] Chloride 108(H) 98 - 107 mmol/L 10/28/2019 2:40 PM [facility] CO2 21(L) 22 - 29 mmol/L 10/28/2019 2:40 PM [facility] Glucose 95 70 - 115 mg/dL 10/28/2019 2:40 PM [facility] Calcium 7.9(L) 8.4 - 10.2 mg/dL 10/28/2019 2:40 PM [facility] Anion Gap 13 8 - 18 10/28/2019 2:40 PM [facility] BUN/Creatinine Ratio 9 7 - 23 10/28/2019 2:40 PM [facility] Osmolality Calculated 283 270 - 300 mOsm/kg 10/28/2019 2:40 PM [facility] eGFR >60 >60 mL/min/1.7 3 m2 10/28/2019 2:40 PM [facility] Blood BLOOD SPECIMEN / Unknown Venipuncture / Unknown 10/28/2019 2:12 PM [facility] 10/28/2019 2:17 PM [facility] Tyrone Solis MD LAB - CHEMISTRY ORD ERABLES [address] [phone] * (ABNORMAL) BLOOD GASES ARTERIAL (10/28/2019 12:04 PM [facility]) pH Arterial 7.41 7.35 - 7.45 10/28/2019 12:09 PM [facility] pCO2 Arterial 36 35 - 45 mmHg 10/28/2019 12:09 PM [facility] pO2 Arterial 200 mmHg 10/28/2019 12:09 PM [facility] HCO3 Arterial 21.8(L) 22.0 - 26.0 mmol/L 10/28/2019 12:09 PM [facility] TCO2 Arterial 22.9(L) 25.0 - 29.0 mmol/L 10/28/2019 12:09 PM [facility] Base Excess Arterial -2.5(L) -2.0 - 2.0 mmol/L 10/28/2019 12:09 PM [facility] Hemoglobin Arterial 8.6(L) 12.0 - 15.5 g/dL 10/28/2019 12:09 PM [facility] Oxyhemoglobin Arterial 97.6 92.0 - 100.0 % 10/28/2019 12:09 PM [facility] TE[facility] Carboxyhemoglobin 0.2 0.0 - 3.0 % 10/28/2019 12:09 PM [facility] TE[facility] Methemoglobin 0.5 0.0 - 2.0 % 10/28/2019 12:09 PM CHARGER TESTER [facility] FI O2 Arterial 50.0 % 10/28/2019 12:09 PM [facility] TE[facility] Blood, arterial ARTERIAL BLOOD SPECIMEN / Unknown Arterial Puncture / Unknown 10/28/2019 12:04 PM [facility] 10/28/2019 12:07 PM [facility] Tyrone Solis MD LAB - BLOOD GASES O RDERABLES [address] [phone] * XR ABDOMEN KUB PORTABLE (10/28/2019 12:00 PM [facility] TE[facility]) Anatomical Region Laterality Modality Abdomen Radiographic Radha ging 10/28/2019 12:1 1 PM [facility] Impressions 10/28/2019 1:16 PM [facility] IMPRESSION: No needles, instruments, or sponges. Results were conveyed to JALEN Suarez on 10/28/2019 at 12:10 PM This report was electronically signed by CHAD MOREL M.D. ??on 10/28/2019 1:16 PM . Narrative 10/28/2019 1:16 PM [facility] Exam: XR ABDOMEN KUB PORTABLE Date: 10/28/2019 [...] on 10/28/2019 1:16 PM . Alma Rosa Nuñezper DO DIAGNOSTIC IMAGING O RDERABLES * (ABNORMAL) CBC W/O DIFFERENTIAL (10/28/2019 6:07 AM [facility]) WBC 11.6(H) 3.5 - 10.5 10? 3 /uL 10/28/2019 6:32 AM [facility] RBC 2.65(L) 3.90 - 5.00 10? 6 /uL 10/28/2019 6:32 AM [facility] Hemoglobin 8.2(L) 12.0 - 15.5 g/dL 10/28/2019 6:32 AM [facility] Hematocrit 23.7(L) 35.0 - 45.0 % 10/28/2019 6:32 AM [facility] MCV 89.4 81.0 - 97.0 fL 10/28/2019 6:32 AM [facility] MCH 30.9 28.0 - 34.0 pg 10/28/2019 6:32 AM [facility] MCHC 34.6 32.0 - 36.0 g/dL 10/28/2019 6:32 AM [facility] Platelet Count 91(L) 150 - 400 10? 3 /uL 10/28/2019 6:32 AM [facility] Comment:Checked with previou s results. RDW-SD 51.5(H) 36.0 - 50.0 fL 10/28/2019 6:32 AM [facility] RDW-CV 15.8(H) 11.2 - 14.8 % 10/28/2019 6:32 AM [facility] MPV 11.1 9.3 - 12.8 fL 10/28/2019 6:32 AM [facility] nRBC Absolute 0.00 0 10? 3 /uL 10/28/2019 6:32 AM [facility] nRBC Auto 0.0 0 /100 WBC 10/28/2019 6:32 AM [facility] Blood BLOOD SPECIMEN / Unknown Venipuncture / Unknown 10/28/2019 6:07 AM [facility] 10/28/2019 6:13 AM [facility] Tyrone Solis MD LAB - HEMATOLOGY OR DERABLES [facility] [address] [phone] * (ABNORMAL) BLOOD GASES ARTERIAL (10/28/2019 6:07 AM [facility]GER TESTER) pH Arterial 7.37 7.35 - 7.45 10/28/2019 6:18 AM [facility] pCO2 Arterial 39 35 - 45 mmHg 10/28/2019 6:18 AM [facility] pO2 Arterial 168 mmHg 10/28/2019 6:18 AM [facility] HCO3 Arterial 22.1 22.0 - 26.0 mmol/L 10/28/2019 6:18 AM [facility] TCO2 Arterial 23.3(L) 25.0 - 29.0 mmol/L 10/28/2019 6:18 AM [facility] Base Excess Arterial -2.8(L) -2.0 - 2.0 mmol/L 10/28/2019 6:18 AM [facility] Hemoglobin Arterial 8.2(L) 12.0 - 15.5 g/dL 10/28/2019 6:18 AM [facility] Oxyhemoglobin Arterial 97.6 92.0 - 100.0 % 10/28/2019 6:18 AM [facility] Carboxyhemoglobin 0.1 0.0 - 3.0 % 10/28/2019 6:18 AM [facility] Methemoglobin 0.3 0.0 - 2.0 % 10/28/2019 6:18 AM [facility] FI O2 Arterial 40.0 % 10/28/2019 6:18 AM [facility] Blood, arterial ARTERIAL BLOOD SPECIMEN / Unknown Arterial Puncture / Unknown 10/28/2019 6:07 AM [facility] TE[facility] 10/28/2019 6:13 AM [facility] Tyrone Solis MD LAB - BLOOD GASES O RDERABLES Performing Organization Address City/[facility]/ZIP Co de Phone Number [facility] [address] [place] [address] * (ABNORMAL) BASIC METABOLIC PANEL (CALCIUM TOTAL) (10/28/2019 6:07 AM [facility]) BUN 8 7 - 26 mg/dL 10/28/2019 6:34 AM [facility] Creatinine 0.8 0.6 - 1.2 mg/dL 10/28/2019 6:34 AM [facility] Sodium 139 136 - 145 mmol/L 10/28/2019 6:34 AM [facility] Potassium 3.7 3.5 - 4.5 mmol/L 10/28/2019 6:34 AM [facility] Chloride 112(H) 98 - 107 mmol/L 10/28/2019 6:34 AM [facility] CO2 22 22 - 29 mmol/L 10/28/2019 6:34 AM [facility] Glucose 91 70 - 115 mg/dL 10/28/2019 6:34 AM [facility] Calcium 7.7(L) 8.4 - 10.2 mg/dL 10/28/2019 6:34 AM [facility] Anion Gap 9 8 - 18 10/28/2019 6:34 AM [facility] BUN/Creatinine Ratio 10 7 - 23 10/28/2019 6:34 AM [facility] Osmolality Calculated 286 270 - 300 mOsm/kg 10/28/2019 6:34 AM [facility] eGFR >60 >60 mL/min/1.7 3 m2 10/28/2019 6:34 AM [facility] Blood BLOOD SPECIMEN / Unknown Venipuncture / Unknown 10/28/2019 6:07 AM [facility] 10/28/2019 6:13 AM [facility] Tyrone Solis MD LAB - CHEMISTRY ORD ERABLES [address] [phone] * PHOSPHORUS BLOOD (10/28/2019 6:07 AM [facility]) Phosphorus 3.2 2.3 - 4.7 mg/dL 10/28/2019 6:34 AM [facility] TESTER [facility] Blood BLOOD SPECIMEN / Unknown Venipuncture / Unknown 10/28/2019 6:07 AM [facility] TE[facility] 10/28/2019 6:13 AM [facility] TE[facility] Nano Garces MD LAB - CHEMISTRY ORDERABLES Performing Organization Address City/[facility]/ZIP Co de Phone Number [address] [phone] * MAGNESIUM BLOOD (10/28/2019 6:07 AM [facility] TE[facility]) Magnesium 2.0 1.6 - 2.6 mg/dL 10/28/2019 6:34 AM [facility] TESTER [facility] Blood BLOOD SPECIMEN / Unknown Venipuncture / Unknown 10/28/2019 6:07 AM [facility] TE[facility] 10/28/2019 6:13 AM [facility] TESTER Nano Garces MD LAB - CHEMISTRY ORDERABLES Performing Organization Address [facility] de Phone Number [address] [phone] * XR CHEST 1VW PORTABLE (10/28/2019 5:51 AM [facility]GER TESTER) Anatomical Region Laterality Modality Chest Radiographic Radha ging 10/28/2019 7:24 AM [facility]GER TESTER Impressions 10/28/2019 1:09 PM [facility] TE[facility] FINDINGS/IMPRESSION: Lines: Endotracheal tube tip projects 1.3 [...] is normal. Dictated by Leif Smiley MD (pharmacy resident). I, Dr. ALMA ROSA CORDON have personally reviewed and interpreted this examination/study. This report was electronically signed by ALMA ROSA CORDON ??on 10/28/2019 1:09 PM . Narrative 10/28/2019 1:09 PM [facility] TE[facility] EXAMINATION: XR CHEST 1VW PORTABLE, 10/28/2019 5:51 [...] is normal. Dictated by Leif Smiley MD (pharmacy resident). I, Dr. ALMA ROSA CORDON have personally reviewed and interpreted this examination/study. This report was electronically signed by ALMA ROSA CORDON on 10/28/2019 1:09 PM . Kapil Gonsalves MD DIAGNOSTIC IMAGING O RDERABLES * (ABNORMAL) CBC W/O DIFFERENTIAL (10/27/2019 11:57 PM [facility]) WBC 10.2 3.5 - 10.5 10? 3 /uL 10/28/2019 12:21 AM [facility] RBC 2.72(L) 3.90 - 5.00 10? 6 /uL 10/28/2019 12:21 AM [facility] Hemoglobin 8.3(L) 12.0 - 15.5 g/dL 10/28/2019 12:21 AM [facility] Hematocrit 24.2(L) 35.0 - 45.0 % 10/28/2019 12:21 AM [facility] MCV 89.0 81.0 - 97.0 fL 10/28/2019 12:21 AM [facility] MCH 30.5 28.0 - 34.0 pg 10/28/2019 12:21 AM [facility] MCHC 34.3 32.0 - 36.0 g/dL 10/28/2019 12:21 AM [facility] Platelet Count 95(L) 150 - 400 10? 3 /uL 10/28/2019 12:21 AM [facility] Comment:Confirmed with previ ous result RDW-SD 50.9(H) 36.0 - 50.0 fL 10/28/2019 12:21 AM [facility] RDW-CV 15.5(H) 11.2 - 14.8 % 10/28/2019 12:21 AM [facility] MPV 10.9 9.3 - 12.8 fL 10/28/2019 12:21 AM [facility] nRBC Absolute 0.00 0 10? 3 /uL 10/28/2019 12:21 AM [facility] nRBC Auto 0.0 0 /100 WBC 10/28/2019 12:21 AM [facility] Blood BLOOD SPECIMEN / Unknown Venipuncture / Unknown 10/27/2019 11:57 PM [facility] TESTER 10/28/2019 12:05 AM [facility] Tyrone Solis MD LAB - HEMATOLOGY OR DERABLES Performing Organization Address City/State/[facility] Co de Phone Number [facility] [address] [place] [address] * (ABNORMAL) BLOOD GASES ARTERIAL (10/27/2019 11:57 PM [facility] TE[facility]) pH Arterial 7.35 7.35 - 7.45 10/28/2019 12:09 AM [facility] pCO2 Arterial 42 35 - 45 mmHg 10/28/2019 12:09 AM [facility] pO2 Arterial 170 mmHg 10/28/2019 12:09 AM [facility] HCO3 Arterial 22.6 22.0 - 26.0 mmol/L 10/28/2019 12:09 AM [facility] TCO2 Arterial 23.9(L) 25.0 - 29.0 mmol/L 10/28/2019 12:09 AM [facility] Base Excess Arterial -2.8(L) -2.0 - 2.0 mmol/L 10/28/2019 12:09 AM [facility] Hemoglobin Arterial 8.6(L) 12.0 - 15.5 g/dL 10/28/2019 12:09 AM [facility] Oxyhemoglobin Arterial 97.4 92.0 - 100.0 % 10/28/2019 12:09 AM [facility] Carboxyhemoglobin 0.2 0.0 - 3.0 % 10/28/2019 12:09 AM [facility] Methemoglobin 0.5 0.0 - 2.0 % 10/28/2019 12:09 AM [facility] FI O2 Arterial 40.0 % 10/28/2019 12:09 AM [facility] Blood, arterial ARTERIAL BLOOD SPECIMEN / Unknown Arterial Puncture / Unknown 10/27/2019 11:57 PM [facility] TE[facility] 10/28/2019 12:05 AM [facility] Tyrone Solis MD LAB - BLOOD GASES O RDERABLES [address] [phone] * (ABNORMAL) BASIC METABOLIC PANEL (CALCIUM TOTAL) (10/27/2019 11:57 PM [facility]) BUN 10 7 - 26 mg/dL 10/28/2019 12:37 AM [facility] Creatinine 0.8 0.6 - 1.2 mg/dL 10/28/2019 12:37 AM [facility] Sodium 137 136 - 145 mmol/L 10/28/2019 12:37 AM [facility] Potassium 3.9 3.5 - 4.5 mmol/L 10/28/2019 12:37 AM [facility] Chloride 110(H) 98 - 107 mmol/L 10/28/2019 12:37 AM [facility] CO2 21(L) 22 - 29 mmol/L 10/28/2019 12:37 AM [facility] Glucose 130(H) 70 - 115 mg/dL 10/28/2019 12:37 AM [facility] Calcium 7.7(L) 8.4 - 10.2 mg/dL 10/28/2019 12:37 AM [facility] Anion Gap 10 8 - 18 10/28/2019 12:37 AM [facility] BUN/Creatinine Ratio 13 7 - 23 10/28/2019 12:37 AM [facility] Osmolality Calculated 285 270 - 300 mOsm/kg 10/28/2019 12:37 AM [facility] eGFR >60 >60 mL/min/1.7 3 m2 10/28/2019 12:37 AM [facility] Blood BLOOD SPECIMEN / Unknown Venipuncture / Unknown 10/27/2019 11:57 PM [facility] TE[facility] 10/28/2019 12:05 AM [facility] Tyrone Solis MD LAB - CHEMISTRY ORD ERABLES Performing Organization Address [facility] Co de Phone Number [address] [phone] * (ABNORMAL) PT-INR [facility] (10/27/2019 11:57 PM CHARGER TESTER) PT 16.4(H) 12.1 - 14.8 Seconds 10/28/2019 12:29 AM [facility] INR 1.4 See Comment 10/28/2019 12:29 AM [facility] Comment:The suggested therap eutic range for standard coumadin (warfarin) therapy is an INR of 2.0-3.0. For high-risk patients (Mechanical Mitral Valve Prosthesis, etc.), the suggested prophylactic therapeutic range is an INR of 2.5-3.5. Blood BLOOD SPECIMEN / Unknown Venipuncture / Unknown 10/27/2019 11:57 PM [facility]GER TESTER 10/28/2019 12:05 AM CHARGER TESTER Nano Garces MD LAB - COAGULATI ON ORDERABLES Performing Organization Address [facility]/ZIP Co de Phone Number [address] [phone] * PHOSPHORUS BLOOD (10/27/2019 11:57 PM CHARGER TESTER) Phosphorus 3.5 2.3 - 4.7 mg/dL 10/28/2019 12:37 AM [facility] Blood BLOOD SPECIMEN / Unknown Venipuncture / Unknown 10/27/2019 11:57 PM [facility]GER TESTER 10/28/2019 12:05 AM [facility]GER TESTER Nano Garces MD LAB - CHEMISTRY ORDERABLES Performing Organization Address [facility]/ZIP Co de Phone Number [address] [phone] * MAGNESIUM BLOOD (10/27/2019 11:57 PM CHARGER TESTER) Magnesium 2.1 1.6 - 2.6 mg/dL 10/28/2019 12:37 AM [facility] Blood BLOOD SPECIMEN / Unknown Venipuncture / Unknown 10/27/2019 11:57 PM [facility]GER TESTER 10/28/2019 12:05 AM CHARGER TESTER Nano Garces MD LAB - CHEMISTRY ORDERABLES Performing Organization Address City/[facility]/ZIP Co de Phone Number [address] [phone] * (ABNORMAL) BASIC METABOLIC PANEL (CALCIUM TOTAL) (10/27/2019 6:13 PM [facility] TE[facility]) BUN 12 7 - 26 mg/dL 10/27/2019 6:45 PM [facility] Creatinine 0.8 0.6 - 1.2 mg/dL 10/27/2019 6:45 PM [facility] Sodium 139 136 - 145 mmol/L 10/27/2019 6:45 PM [facility] Potassium 4.5 3.5 - 4.5 mmol/L 10/27/2019 6:45 PM [facility] Chloride 112(H) 98 - 107 mmol/L 10/27/2019 6:45 PM [facility] CO2 19(L) 22 - 29 mmol/L 10/27/2019 6:45 PM [facility] Glucose 112 70 - 115 mg/dL 10/27/2019 6:45 PM [facility] Calcium 8.0(L) 8.4 - 10.2 mg/dL 10/27/2019 6:45 PM [facility] Anion Gap 13 8 - 18 10/27/2019 6:45 PM [facility] BUN/Creatinine Ratio 15 7 - 23 10/27/2019 6:45 PM [facility] Osmolality Calculated 289 270 - 300 mOsm/kg 10/27/2019 6:45 PM [facility] eGFR >60 >60 mL/min/1.7 3 m2 10/27/2019 6:45 PM [facility] Blood BLOOD SPECIMEN / Unknown Venipuncture / Unknown 10/27/2019 6:13 PM [facility] TE[facility] 10/27/2019 6:16 PM [facility] Tyrone Solis MD LAB - CHEMISTRY ORD ERABLES [address] [phone] * (ABNORMAL) CBC W/O DIFFERENTIAL (10/27/2019 6:12 PM [facility] TE[facility]) WBC 9.7 3.5 - 10.5 10? 3 /uL 10/27/2019 6:24 PM [facility] RBC 2.93(L) 3.90 - 5.00 10? 6 /uL 10/27/2019 6:24 PM [facility] Hemoglobin 9.0(L) 12.0 - 15.5 g/dL 10/27/2019 6:24 PM [facility] Hematocrit 26.1(L) 35.0 - 45.0 % 10/27/2019 6:24 PM [facility] MCV 89.1 81.0 - 97.0 fL 10/27/2019 6:24 PM [facility] MCH 30.7 28.0 - 34.0 pg 10/27/2019 6:24 PM [facility] MCHC 34.5 32.0 - 36.0 g/dL 10/27/2019 6:24 PM [facility] Platelet Count 94(L) 150 - 400 10? 3 /uL 10/27/2019 6:24 PM [facility] RDW-SD 49.2 36.0 - 50.0 fL 10/27/2019 6:24 PM [facility] RDW-CV 15.0(H) 11.2 - 14.8 % 10/27/2019 6:24 PM [facility] MPV 10.9 9.3 - 12.8 fL 10/27/2019 6:24 PM [facility] nRBC Absolute 0.00 0 10? 3 /uL 10/27/2019 6:24 PM [facility] nRBC Auto 0.0 0 /100 WBC 10/27/2019 6:24 PM [facility] Blood BLOOD SPECIMEN / Unknown Venipuncture / Unknown 10/27/2019 6:12 PM [facility] TESTER 10/27/2019 6:16 PM [facility] TE[facility] Tyrone Solis MD LAB - HEMATOLOGY OR DERABLES Performing Organization Address City/State/[facility] Co de Phone Number [facility] [address] [phone] * (ABNORMAL) BLOOD GASES ARTERIAL (10/27/2019 6:12 PM CHARGER TESTER) pH Arterial 7.35 7.35 - 7.45 10/27/2019 6:20 PM [facility] pCO2 Arterial 39 35 - 45 mmHg 10/27/2019 6:20 PM [facility] pO2 Arterial 175 mmHg 10/27/2019 6:20 PM [facility] HCO3 Arterial 20.9(L) 22.0 - 26.0 mmol/L 10/27/2019 6:20 PM [facility] TCO2 Arterial 22.1(L) 25.0 - 29.0 mmol/L 10/27/2019 6:20 PM [facility] Base Excess Arterial -4.2(L) -2.0 - 2.0 mmol/L 10/27/2019 6:20 PM [facility] Hemoglobin Arterial 9.3(L) 12.0 - 15.5 g/dL 10/27/2019 6:20 PM [facility] Oxyhemoglobin Arterial 97.6 92.0 - 100.0 % 10/27/2019 6:20 PM [facility] Carboxyhemoglobin 0.1 0.0 - 3.0 % 10/27/2019 6:20 PM [facility] Methemoglobin 0.2 0.0 - 2.0 % 10/27/2019 6:20 PM [facility]GER TE[facility] FI O2 Arterial 40.0 % 10/27/2019 6:20 PM [facility] TE[facility] Blood, arterial ARTERIAL BLOOD SPECIMEN / Unknown Arterial Puncture / Unknown 10/27/2019 6:12 PM [facility] TE[facility] 10/27/2019 6:16 PM CHARGER TESTER Tyrone Solis MD LAB - BLOOD GASES O RDERABLES [address] [phone] * CT LUMBAR SPINE WO CONTRAST (10/27/2019 3:52 PM CHARGER TESTER) Anatomical Region Laterality Modality Spine Computed Tomogra phy 10/27/2019 3:53 PM [facility]GER TE[facility] Impressions 10/27/2019 5:01 PM [facility]GER TE[facility] IMPRESSION: 1.No evidence of acute fracture in the thoracic or lumbar spine. 2.Please see the dedicated CT of the chest, abdomen pelvis of the current date for intrathoracic, intra-abdominal and intrapelvic findings. Dictated by Kalli Lake MD (pharmacy resident). I, Dr. TYLER LUCERO have personally reviewed and interpreted this examination/study. This report was electronically signed by TYLER LUCERO ??on 10/27/2019 5:01 PM . Narrative 10/27/2019 5:[address] THORACIC SPINE WO CONTRAST, CT LUMBAR [...] and [facility]. COMPARISON: No prior study is [...] intrapelvic findings. Dictated by Kalli Lake MD (pharmacy resident). Dr. TYLER Simmons have personally reviewed and interpreted this examination/study. This report was electronically signed by TYLER LUCERO on 10/27/2019 5:01PM . Tyrone Solis MD CT ORDERABLES * CT THORACIC SPINE WO CONTRAST (10/27/2019 3:52 PM CHARGER TESTER) Anatomical Region Laterality Modality Spine Computed Tomogra phy 10/27/2019 3:53 PM CHARGER TESTER Impressions 10/27/2019 5:01 PM [facility]GER TESTER IMPRESSION: 1.No evidence of acute fracture in the thoracic or lumbar spine. 2.Please see the dedicated CT of the chest, abdomen pelvis of the current date for intrathoracic, intra-abdominal and intrapelvic findings. Dictated by Kalli Lake MD (pharmacy resident). Dr. TYLER Simmons have personally reviewed and interpreted this examination/study. This report was electronically signed by TYLER LUCERO ??on 10/27/2019 5:01 PM . Narrative 10/27/2019 5:[address] THORACIC SPINE WO CONTRAST, CT LUMBAR [...] and pelvis and the images were sent [facility] for review. COMPARISON: No prior study is [...] intrapelvic findings. Dictated by Kalli Lake MD (pharmacy resident). Dr. TYLER Simmons have personally reviewed and interpreted this examination/study. This report was electronically signed by TYLER LUCERO on 10/27/2019 5:01PM . Tyrone Solis MD CT ORDERABLES * CT CHEST ABDOMEN PELVIS W CONT (10/27/2019 3:52 PM CHARGER TESTER) Anatomical Region Laterality Modality Chest, Abdomen, Pelvis Computed Tomography 10/27/2019 4:42 PM CHARGER TESTER Impressions 10/27/2019 5:19 PM CHARGER TESTER Impression: 1.Postoperative changes associated with midline laparotomy, [...] 5:19 PM . Narrative 10/27/2019 5:19 PM CHARGER TESTER EXAMINATION: Computed tomography (CT) of the chest, [...] Solis MD CT ORDERABLES * (ABNORMAL) PT-INR [facility] (10/27/2019 2:40 PM CHARGER TESTER) PT 15.3(H) 12.1 - 14.8 Seconds 10/27/2019 2:57 PM CHARGER TESTER [facility] INR 1.3 See Comment 10/27/2019 2:57 PM CHARGER TESTER [facility] Comment:The suggested therap eutic range for standard coumadin (warfarin) therapy is an INR of 2.0-3.0. For high-risk patients (Mechanical Mitral Valve Prosthesis, etc.), the suggested prophylactic therapeutic range is an INR of 2.5-3.5. Blood BLOOD SPECIMEN / Unknown Venipuncture / Unknown 10/27/2019 2:40 PM CHARGER TESTER 10/27/2019 2:46 PM CHARGER TESTER Kapil Gonsalves MD LAB - COAGULATION OR DERABLES [facility] [address] [phone] * PHOSPHORUS BLOOD (10/27/2019 2:40 PM CHARGER TESTER) Phosphorus 2.8 2.3 - 4.7 mg/dL 10/27/2019 3:12 PM [facility] Blood BLOOD SPECIMEN / Unknown Venipuncture / Unknown 10/27/2019 2:40 PM CHARGER TESTER 10/27/2019 2:46 PM CHARGER TESTER Kapil Gonsalves MD LAB - CHEMISTRY ANGELA JONES Performing Organization Address [facility]/ZIP Co de Phone Number [address] [phone] * MAGNESIUM BLOOD (10/27/2019 2:40 PM CHARGER TESTER) Magnesium 2.3 1.6 - 2.6 mg/dL 10/27/2019 3:12 PM [facility] Blood BLOOD SPECIMEN / Unknown Venipuncture / Unknown 10/27/2019 2:40 PM CHARGER TESTER 10/27/2019 2:46 PM CHARGER TESTER Kapil Gonsalves MD LAB - CHEMISTRY ANGELA JONES Performing Organization Address City/[facility]/ZIP Co de Phone Number [address] [phone] * (ABNORMAL) BASIC METABOLIC PANEL (CALCIUM TOTAL) (10/27/2019 2:40 PM CHARGER TESTER) BUN 12 7 - 26 mg/dL 10/27/2019 3:12 PM [facility] Creatinine 0.8 0.6 - 1.2 mg/dL 10/27/2019 3:12 PM [facility] Sodium 141 136 - 145 mmol/L 10/27/2019 3:12 PM [facility] Potassium 4.7(H) 3.5 - 4.5 mmol/L 10/27/2019 3:12 PM [facility] Chloride 113(H) 98 - 107 mmol/L 10/27/2019 3:12 PM [facility] CO2 22 22 - 29 mmol/L 10/27/2019 3:12 PM [facility] Glucose 116(H) 70 - 115 mg/dL 10/27/2019 3:12 PM [facility] Calcium 8.0(L) 8.4 - 10.2 mg/dL 10/27/2019 3:12 PM [facility] Anion Gap 11 8 - 18 10/27/2019 3:12 PM [facility] BUN/Creatinine Ratio 15 7 - 23 10/27/2019 3:12 PM [facility] Osmolality Calculated 293 270 - 300 mOsm/kg 10/27/2019 3:12 PM [facility] eGFR >60 >60 mL/min/1.7 3 m2 10/27/2019 3:12 PM [facility] Blood BLOOD SPECIMEN / Unknown Venipuncture / Unknown 10/27/2019 2:40 PM [facility]GER TESTER 10/27/2019 2:46 PM CHARGER TESTER Kapil Gonsalves MD LAB - CHEMISTRY ORDE ROBERT [address] [phone] * (ABNORMAL) CBC W/O DIFFERENTIAL (10/27/2019 2:40 PM CHARGER TESTER) WBC 8.3 3.5 - 10.5 10? 3 /uL 10/27/2019 2:55 PM [facility] RBC 2.86(L) 3.90 - 5.00 10? 6 /uL 10/27/2019 2:55 PM [facility] Comment:All CBC parameters h ave been checked. Hemoglobin 8.8(L) 12.0 - 15.5 g/dL 10/27/2019 2:55 PM [facility] Comment:Confirmed by repeat analysis. Hematocrit 25.6(L) 35.0 - 45.0 % 10/27/2019 2:55 PM [facility] Comment:Confirmed by repeat analysis. MCV 89.5 81.0 - 97.0 fL 10/27/2019 2:55 PM [facility] MCH 30.8 28.0 - 34.0 pg 10/27/2019 2:55 PM [facility] MCHC 34.4 32.0 - 36.0 g/dL 10/27/2019 2:55 PM [facility] Platelet Count 87(L) 150 - 400 10? 3 /uL 10/27/2019 2:55 PM [facility] Comment:Checked with the pre vious result. RDW-SD 47.0 36.0 - 50.0 fL 10/27/2019 2:55 PM [facility] RDW-CV 14.3 11.2 - 14.8 % 10/27/2019 2:55 PM [facility] MPV 10.9 9.3 - 12.8 fL 10/27/2019 2:55 PM [facility] nRBC Absolute 0.00 0 10? 3 /uL 10/27/2019 2:55 PM [facility] nRBC Auto 0.0 0 /100 WBC 10/27/2019 2:55 PM [facility] Blood BLOOD SPECIMEN / Unknown Venipuncture / Unknown 10/27/2019 2:40 PM [facility]GER TESTER 10/27/2019 2:46 PM CHARGER TESTER Kapil Gonsalves MD LAB - HEMATOLOGY ORD ERABLES [address] [phone] * (ABNORMAL) BLOOD GASES ARTERIAL (10/27/2019 2:40 PM CHARGER TESTER) pH Arterial 7.37 7.35 - 7.45 10/27/2019 2:48 PM [facility] pCO2 Arterial 36 35 - 45 mmHg 10/27/2019 2:48 PM [facility] pO2 Arterial 193 mmHg 10/27/2019 2:48 PM [facility] HCO3 Arterial 20.2(L) 22.0 - 26.0 mmol/L 10/27/2019 2:48 PM [facility] TCO2 Arterial 21.3(L) 25.0 - 29.0 mmol/L 10/27/2019 2:48 PM [facility] Base Excess Arterial -4.6(L) -2.0 - 2.0 mmol/L 10/27/2019 2:48 PM [facility] Hemoglobin Arterial 8.8(L) 12.0 - 15.5 g/dL 10/27/2019 2:48 PM [facility] Oxyhemoglobin Arterial 97.6 92.0 - 100.0 % 10/27/2019 2:48 PM [facility] Carboxyhemoglobin 0.3 0.0 - 3.0 % 10/27/2019 2:48 PM CHARGER TESTER [facility] Methemoglobin 0.6 0.0 - 2.0 % 10/27/2019 2:48 PM [facility] FI O2 Arterial 40.0 % 10/27/2019 2:48 PM [facility] Blood, arterial ARTERIAL BLOOD SPECIMEN / Unknown Arterial Puncture / Unknown 10/27/2019 2:40 PM [facility]GER TESTER 10/27/2019 2:46 PM CHARGER TESTER Nano Garces MD LAB - BLOOD GAS ES ORDERABLES [facility] [address] [place] [address] * TRANSFUSE RED BLOOD CELL LEUKOREDUCED UNIT(S) (10/27/2019 1:27 PM CHARGER TESTER) Kapil Gonsalves MD NURSING - BLOOD PROD TRANSFUSION * TRANSFUSE RED BLOOD CELL LEUKOREDUCED UNIT(S) (10/27/2019 1:03 PM CHARGER TESTER) Kapil Gonsalves MD NURSING - BLOOD PROD TRANSFUSION * TRANSFUSE FRESH FROZEN PLASMA UNIT(S) (10/27/2019 11:26 AM CHARGER TESTER) Kapil Gonsalves MD NURSING - BLOOD PROD TRANSFUSION * TRANSFUSE FRESH FROZEN PLASMA UNIT(S), 1 Units (10/27/2019 11:26 AM CHARGER TESTER) Kapil Gonsalves MD NURSING - BLOOD PROD TRANSFUSION * (ABNORMAL) DIFFERENTIAL MANUAL (10/27/2019 9:55 AM CHARGER TESTER) WBC (corrected for NRBC) 7.5 10? 3 /uL 10/27/2019 10:36 AM [facility] Total Cell Count 100 10/27/2019 10:36 AM [facility] Neutrophils Absolute Manual 6.30 1.60 - 7.00 10? 3 /uL 10/27/2019 10:36 AM [facility] Comment:(BANDS+SEGS) x WBC = NEUT # (ANC) Lymphocyte Absolute Manual 0.75(L) 0.80 - 2.90 10? 3 /uL 10/27/2019 10:36 AM [facility] Monocytes Absolute Manual 0.45 0.14 - 0.66 10? 3 /uL 10/27/2019 10:36 AM [facility] Band % Manual 14(H) 0 - 10 % 10/27/2019 10:36 AM [facility] Neutrophil % Manual 70(H) 30 - 60 % 10/27/2019 10:36 AM [facility] Lymphocyte % Manual 10(L) 20 - 45 % 10/27/2019 10:36 AM [facility] Monocytes % Manual 6 2 - 10 % 10/27/2019 10:36 AM [facility] Platelet Estimate Decreased( A) Adequate 10/27/2019 10:36 AM [facility] RBC Morphology Normal 10/27/2019 10:36 AM [facility] Blood BLOOD SPECIMEN / Unknown Venipuncture / Unknown 10/27/2019 9:55 AM CHARGER TESTER 10/27/2019 10:03 AM [facility] Sam Landry MD LAB - HEMATOLOGY OR DERABLES [address] [phone] * (ABNORMAL) BLOOD GASES ARTERIAL (10/27/2019 9:55 AM CHARGER TESTER) pH Arterial 7.35 7.35 - 7.45 10/27/2019 10:06 AM [facility] pCO2 Arterial 37 35 - 45 mmHg 10/27/2019 10:06 AM [facility] pO2 Arterial 192 mmHg 10/27/2019 10:06 AM [facility] HCO3 Arterial 20.1(L) 22.0 - 26.0 mmol/L 10/27/2019 10:06 AM [facility] TCO2 Arterial 21.2(L) 25.0 - 29.0 mmol/L 10/27/2019 10:06 AM [facility] Base Excess Arterial -5.0(L) -2.0 - 2.0 mmol/L 10/27/2019 10:06 AM [facility] Hemoglobin Arterial 6.2(L) 12.0 - 15.5 g/dL 10/27/2019 10:06 AM [facility] Oxyhemoglobin Arterial 97.0 92.0 - 100.0 % 10/27/2019 10:06 AM [facility] Carboxyhemoglobin 0.3 0.0 - 3.0 % 10/27/2019 10:06 AM [facility] Methemoglobin 0.9 0.0 - 2.0 % 10/27/2019 10:06 AM [facility] FI O2 Arterial 40.0 % 10/27/2019 10:06 AM [facility] Blood, arterial ARTERIAL BLOOD SPECIMEN / Unknown Arterial Puncture / Unknown 10/27/2019 9:55 AM CHARGER TESTER 10/27/2019 10:03 AM [facility] Sam Landry MD LAB - BLOOD GASES O RDERABLES [address] [phone] * (ABNORMAL) CBC W AUTO DIFFERENTIAL (10/27/2019 9:55 AM [facility]) WBC 7.5 3.5 - 10.5 10? 3 /uL 10/27/2019 10:36 AM [facility] RBC 2.08(L) 3.90 - 5.00 10? 6 /uL 10/27/2019 10:36 AM [facility] Hemoglobin 6.5(L) 12.0 - 15.5 g/dL 10/27/2019 10:36 AM [facility] Comment:All CBC parameters h ave been checked. Hematocrit 19.4(L) 35.0 - 45.0 % 10/27/2019 10:36 AM [facility] MCV 93.3 81.0 - 97.0 fL 10/27/2019 10:36 AM [facility] MCH 31.3 28.0 - 34.0 pg 10/27/2019 10:36 AM [facility] MCHC 33.5 32.0 - 36.0 g/dL 10/27/2019 10:36 AM [facility] Platelet Count 94(L) 150 - 400 10? 3 /uL 10/27/2019 10:36 AM [facility] Comment: Checked by peripheral smear. This is an appended report. ??These results have been appended to a previously preliminary verified report. RDW-SD 46.2 36.0 - 50.0 fL 10/27/2019 10:36 AM [facility] RDW-CV 13.6 11.2 - 14.8 % 10/27/2019 10:36 AM [facility] MPV 10.7 9.3 - 12.8 fL 10/27/2019 10:36 AM [facility] nRBC Absolute 0.02(H) 0 10? 3 /uL 10/27/2019 10:36 AM [facility] nRBC Auto 0.3(H) 0 /100 WBC 10/27/2019 10:36 AM [facility] Blood BLOOD SPECIMEN / Unknown Venipuncture / Unknown 10/27/2019 9:55 AM [facility]GER TESTER 10/27/2019 10:03 AM [facility]GER TESTER Sam Landry MD LAB - HEMATOLOGY OR DERABLES Performing Organization Address [facility] Co de Phone Number [address] [phone] * (ABNORMAL) BASIC METABOLIC PANEL (CALCIUM TOTAL) (10/27/2019 9:55 AM CHARGER TESTER) BUN 14 7 - 26 mg/dL 10/27/2019 10:34 AM [facility] Creatinine 0.8 0.6 - 1.2 mg/dL 10/27/2019 10:34 AM [facility] Sodium 141 136 - 145 mmol/L 10/27/2019 10:34 AM [facility] Potassium 3.8 3.5 - 4.5 mmol/L 10/27/2019 10:34 AM [facility] Chloride 110(H) 98 - 107 mmol/L 10/27/2019 10:34 AM [facility] CO2 21(L) 22 - 29 mmol/L 10/27/2019 10:34 AM [facility] Glucose 142(H) 70 - 115 mg/dL 10/27/2019 10:34 AM [facility] Calcium 8.7 8.4 - 10.2 mg/dL 10/27/2019 10:34 AM [facility] Anion Gap 14 8 - 18 10/27/2019 10:34 AM [facility] BUN/Creatinine Ratio 18 7 - 23 10/27/2019 10:34 AM [facility] Osmolality Calculated 295 270 - 300 mOsm/kg 10/27/2019 10:34 AM [facility] eGFR >60 >60 mL/min/1.7 3 m2 10/27/2019 10:34 AM [facility] Blood BLOOD SPECIMEN / Unknown Venipuncture / Unknown 10/27/2019 9:55 AM [facility] 10/27/2019 10:03 AM CHARGER TESTER Sam Landry MD LAB - CHEMISTRY ORD ERABLES Performing Organization Address [facility]/ZIP Co de Phone Number [address] [phone] * PTT [facility] (10/27/2019 5:42 AM [facility]) APTT 34.7 23.0 - 38.4 Seconds 10/27/2019 6:14 AM [facility] Comment:Suggested therapeuti c range for full dose I.V. unfractionated heparin therapy for venous thromboembolism is 71 to 109 seconds. Blood BLOOD SPECIMEN / Unknown Venipuncture / Unknown 10/27/2019 5:42 AM [facility] TE[facility] 10/27/2019 5:50 AM [facility]GER TESTER Rio Bhakta MD LAB - COAGULATION OR DERABLES Performing Organization Address [facility]/ZIP Co de Phone Number [address] [phone] * (ABNORMAL) PT-INR [facility] (10/27/2019 5:42 AM [facility]) PT 18.6(H) 12.1 - 14.8 Seconds 10/27/2019 6:13 AM [facility] INR 1.6 See Comment 10/27/2019 6:13 AM [facility] Comment:The suggested therap eutic range for standard coumadin (warfarin) therapy is an INR of 2.0-3.0. For high-risk patients (Mechanical Mitral Valve Prosthesis, etc.), the suggested prophylactic therapeutic range is an INR of 2.5-3.5. Blood BLOOD SPECIMEN / Unknown Venipuncture / Unknown 10/27/2019 5:42 AM [facility] TE[facility] 10/27/2019 5:50 AM CHARGER TESTER Rio Bhakta MD LAB - COAGULATION OR DERABLES Performing Organization Address [facility]/ZIP Co de Phone Number [address] [phone] * (ABNORMAL) PHOSPHORUS BLOOD (10/27/2019 5:42 AM CHARGER TESTER) Phosphorus 5.1(H) 2.3 - 4.7 mg/dL 10/27/2019 6:09 AM [facility] Blood BLOOD SPECIMEN / Unknown Venipuncture / Unknown 10/27/2019 5:42 AM CHARGER TESTER 10/27/2019 5:50 AM CHARGER TESTER Rio Bhakta MD LAB - CHEMISTRY ORDE RABLES Performing Organization Address [facility] Co de Phone Number [address] [phone] * (ABNORMAL) BLOOD GASES ARTERIAL (10/27/2019 4:12 AM CHARGER TESTER) pH Arterial 7.30(L) 7.35 - 7.45 10/27/2019 4:21 AM [facility] pCO2 Arterial 45 35 - 45 mmHg 10/27/2019 4:21 AM [facility] pO2 Arterial 205 mmHg 10/27/2019 4:21 AM [facility] HCO3 Arterial 21.5(L) 22.0 - 26.0 mmol/L 10/27/2019 4:21 AM [facility] TCO2 Arterial 22.9(L) 25.0 - 29.0 mmol/L 10/27/2019 4:21 AM [facility] Base Excess Arterial -4.7(L) -2.0 - 2.0 mmol/L 10/27/2019 4:21 AM [facility] Hemoglobin Arterial 9.4(L) 12.0 - 15.5 g/dL 10/27/2019 4:21 AM [facility] Oxyhemoglobin Arterial 97.8 92.0 - 100.0 % 10/27/2019 4:21 AM [facility] Carboxyhemoglobin 0.3 0.0 - 3.0 % 10/27/2019 4:21 AM [facility] Methemoglobin 0.5 0.0 - 2.0 % 10/27/2019 4:21 AM [facility] FI O2 Arterial 50.0 % 10/27/2019 4:21 AM [facility] Blood, arterial ARTERIAL BLOOD SPECIMEN / Unknown Arterial Puncture / Unknown 10/27/2019 4:12 AM [facility] 10/27/2019 4:16 AM [facility] TE[facility] Rio Bhakta MD LAB - BLOOD GASES OR DERABLES [address] [phone] * MAGNESIUM BLOOD (10/27/2019 4:12 AM CHARGER TESTER) Magnesium 1.7 1.6 - 2.6 mg/dL 10/27/2019 4:37 AM [facility] Blood BLOOD SPECIMEN / Unknown Venipuncture / Unknown 10/27/2019 4:12 AM [facility] TE[facility] 10/27/2019 4:16 AM [facility] TE[facility] Rio Bhakta MD LAB - CHEMISTRY ORDE RABLES [address] [phone] * (ABNORMAL) CBC W AUTO DIFFERENTIAL (10/27/2019 4:12 AM CHARGER TESTER) WBC 7.3 3.5 - 10.5 10? 3 /uL 10/27/2019 4:30 AM [facility] Comment:All CBC parameters h ave been checked. RBC 2.93(L) 3.90 - 5.00 10? 6 /uL 10/27/2019 4:30 AM [facility] Hemoglobin 9.3(L) 12.0 - 15.5 g/dL 10/27/2019 4:30 AM [facility] Hematocrit 27.6(L) 35.0 - 45.0 % 10/27/2019 4:30 AM [facility] MCV 94.2 81.0 - 97.0 fL 10/27/2019 4:30 AM [facility] MCH 31.7 28.0 - 34.0 pg 10/27/2019 4:30 AM [facility] MCHC 33.7 32.0 - 36.0 g/dL 10/27/2019 4:30 AM [facility] Platelet Count 157 150 - 400 10? 3 /uL 10/27/2019 4:30 AM [facility] RDW-SD 44.5 36.0 - 50.0 fL 10/27/2019 4:30 AM [facility] RDW-CV 12.9 11.2 - 14.8 % 10/27/2019 4:30 AM [facility] MPV 11.1 9.3 - 12.8 fL 10/27/2019 4:30 AM [facility] nRBC Absolute 0.00 0 10? 3 /uL 10/27/2019 4:30 AM [facility] nRBC Auto 0.0 0 /100 WBC 10/27/2019 4:30 AM [facility] Neutrophils % 60.7 35.0 - 70.0 % 10/27/2019 4:30 AM [facility] Lymphocytes % 33.0 19.7 - 55.1 % 10/27/2019 4:30 AM [facility] Monocytes % 5.2 3.0 - 15.0 % 10/27/2019 4:30 AM [facility] Eosinophils % 0.4 0.0 - 6.0 % 10/27/2019 4:30 AM [facility] Basophil % 0.3 0.0 - 1.5 % 10/27/2019 4:30 AM [facility] Neutrophils Absolute 4.4 1.6 - 7.0 10? 3 /uL 10/27/2019 4:30 AM [facility] Lymphocyte Absolute 2.4 0.8 - 2.9 10? 3 /uL 10/27/2019 4:30 AM [facility] Monocytes Absolute 0.38 0.14 - 0.66 10? 3 /uL 10/27/2019 4:30 AM [facility] Eosinophils Absolute 0.03 0.00 - 0.45 10? 3 /uL 10/27/2019 4:30 AM [facility] Basophils Absolute 0.02 0.00 - 0.06 10? 3 /uL 10/27/2019 4:30 AM [facility] Immature Granulocytes % 0.4 0.0 - 1.0 % 10/27/2019 4:30 AM [facility] Blood BLOOD SPECIMEN / Unknown Venipuncture / Unknown 10/27/2019 4:12 AM CHARGER TESTER 10/27/2019 4:16 AM [facility] Rio Bhakta MD LAB - HEMATOLOGY ORD ERABLES [facility] [address] [phone] * (ABNORMAL) BASIC METABOLIC PANEL (CALCIUM TOTAL) (10/27/2019 4:12 AM CHARGER TESTER) BUN 14 7 - 26 mg/dL 10/27/2019 4:37 AM [facility] Creatinine 0.7 0.6 - 1.2 mg/dL 10/27/2019 4:37 AM [facility] Sodium 141 136 - 145 mmol/L 10/27/2019 4:37 AM [facility] Potassium 3.5 3.5 - 4.5 mmol/L 10/27/2019 4:37 AM [facility] Chloride 110(H) 98 - 107 mmol/L 10/27/2019 4:37 AM [facility] CO2 19(L) 22 - 29 mmol/L 10/27/2019 4:37 AM [facility] Glucose 223(H) 70 - 115 mg/dL 10/27/2019 4:37 AM [facility] Calcium 7.9(L) 8.4 - 10.2 mg/dL 10/27/2019 4:37 AM [facility] Anion Gap 16 8 - 18 10/27/2019 4:37 AM [facility] BUN/Creatinine Ratio 20 7 - 23 10/27/2019 4:37 AM [facility] Osmolality Calculated 299 270 - 300 mOsm/kg 10/27/2019 4:37 AM [facility] eGFR >60 >60 mL/min/1.7 3 m2 10/27/2019 4:37 AM CHARGER TESTER [facility] Blood BLOOD SPECIMEN / Unknown Venipuncture / Unknown 10/27/2019 4:12 AM [facility]GER TESTER 10/27/2019 4:16 AM CHARGER TESTER Rio Bhakta MD LAB - CHEMISTRY ANGELA Macias Organization Address City/State/ZIP Co de Phone Number [address] [phone] * XR CHEST 1VW PORTABLE (10/27/2019 4:05 AM CHARGER TESTER) Anatomical Region Laterality Modality Chest Radiographic Radha ging 10/27/2019 8:12 AM CHARGER TESTER Impressions 10/27/2019 12:50 PM CHARGER TESTER FINDINGS/IMPRESSION: Lines: Endotracheal tube tip projects over the mid thoracic trachea. Enteric tube tip projects over the gastric region. A right internal jugular approach CVC tip terminates over the superior vena cava. There is no focal consolidation, pleural effusion, or pneumothorax. The cardiomediastinal silhouette is normal. Dictated by Leif Smiley MD (pharmacy resident). I, Dr. ALMA ROSA CORDON have personally reviewed and interpreted this examination/study. This report was electronically signed by ALMA ROSA CORDON ??on 10/27/2019 12:50 PM . Narrative 10/27/2019 12:50 PM CHARGER TESTER EXAMINATION: XR CHEST 1VW PORTABLE, 10/27/2019 4:06 [...] is normal. Dictated by Leif Smiley MD (pharmacy resident). I, Dr. ALMA ROSA CORDON have personally reviewed and interpreted this examination/study. This report was electronically signed by ALMA ROSA CORDON on 10/27/2019 12:50 PM . Khadar Hagenarely DO DIAGNOSTIC IMAGING O RDERABLES * (ABNORMAL) BLOOD GASES ART COMPLETE [facility] OR (10/27/2019 3:15 AM [facility]) pH Arterial 7.37 7.35 - 7.45 10/27/2019 3:34 AM [facility] pCO2 Arterial 39 35 - 45 mmHg 10/27/2019 3:34 AM [facility] pO2 Arterial 282 mmHg 10/27/2019 3:34 AM [facility] HCO3 Arterial 21.9(L) 22.0 - 26.0 mmol/L 10/27/2019 3:34 AM [facility] TCO2 Arterial 23.1(L) 25.0 - 29.0 mmol/L 10/27/2019 3:34 AM [facility] Base Excess Arterial -3.2(L) -2.0 - 2.0 mmol/L 10/27/2019 3:34 AM [facility] Hemoglobin Arterial 8.0(L) 12.0 - 15.5 g/dL 10/27/2019 3:34 AM [facility] Oxyhemoglobin Arterial 97.6 92.0 - 100.0 % 10/27/2019 3:34 AM [facility] Carboxyhemoglobin 0.3 0.0 - 3.0 % 10/27/2019 3:34 AM [facility] Methemoglobin 0.6 0.0 - 2.0 % 10/27/2019 3:34 AM [facility] FI O2 Arterial 55.0 % 10/27/2019 3:34 AM [facility] Ionized Calcium Whole Blood 1.06 mmol/L 10/27/2019 3:34 AM [facility] Adjusted Ionized Calcium 1.04(L) 1.19 - 1.34 mmol/L 10/27/2019 3:34 AM [facility] Sodium Whole Blood 132(L) 135 - 145 mmol/L 10/27/2019 3:34 AM [facility] Potassium Whole Blood 3.2(L) 3.5 - 5.5 mmol/L 10/27/2019 3:34 AM [facility] Chloride Whole Blood 108 mmol/L 12/2019 3:34 AM [facility] Glucose Whole Blood 194(H) 70 - 110 mg/dL 10/27/2019 3:34 AM [facility] Lactic Acid Whole Blood 1.4 0.5 - 3.4 mmol/L 10/27/2019 3:34 AM [facility] Blood ARTERIAL BLOOD SPECIMEN / Unknown Venipuncture / Unknown 10/27/2019 3:15 AM [facility]GER TESTER 10/27/2019 3:28 AM [facility] Awilda Gardner MD LAB - BLOOD GASES ORDERABLES [address] [phone] * (ABNORMAL) BLOOD GASES ART COMPLETE [facility] OR (10/27/2019 2:12 AM [facility]) pH Arterial 7.38 7.35 - 7.45 10/27/2019 2:14 AM [facility] pCO2 Arterial 38 35 - 45 mmHg 10/27/2019 2:14 AM [facility] pO2 Arterial 450 mmHg 10/27/2019 2:14 AM [facility] HCO3 Arterial 21.8(L) 22.0 - 26.0 mmol/L 10/27/2019 2:14 AM [facility] TCO2 Arterial 23.0(L) 25.0 - 29.0 mmol/L 10/27/2019 2:14 AM [facility] Base Excess Arterial -3.0(L) -2.0 - 2.0 mmol/L 10/27/2019 2:14 AM [facility] Hemoglobin Arterial 10.1(L) 12.0 - 15.5 g/dL 10/27/2019 2:14 AM [facility] Oxyhemoglobin Arterial 98.0 92.0 - 100.0 % 10/27/2019 2:14 AM [facility] Carboxyhemoglobin 0.4 0.0 - 3.0 % 10/27/2019 2:14 AM [facility] Methemoglobin 0.4 0.0 - 2.0 % 10/27/2019 2:14 AM [facility] FI O2 Arterial 80.0 % 10/27/2019 2:14 AM [facility] Ionized Calcium Whole Blood 1.21 mmol/L 10/27/2019 2:14 AM [facility] Adjusted Ionized Calcium 1.20 1.19 - 1.34 mmol/L 10/27/2019 2:14 AM [facility] Sodium Whole Blood 130(L) 135 - 145 mmol/L 10/27/2019 2:14 AM [facility] Potassium Whole Blood 3.2(L) 3.5 - 5.5 mmol/L 10/27/2019 2:14 AM [facility] Chloride Whole Blood 108 mmol/L 12/2019 2:14 AM [facility] Glucose Whole Blood 211(H) 70 - 110 mg/dL 10/27/2019 2:14 AM [facility] Lactic Acid Whole Blood 1.9 0.5 - 3.4 mmol/L 10/27/2019 2:14 AM [facility] Blood ARTERIAL BLOOD SPECIMEN / Unknown Venipuncture / Unknown 10/27/2019 2:12 AM [facility] 10/27/2019 2:12 AM [facility] Awilda Gardner MD LAB - BLOOD GASES ORDERABLES [address] [phone] * PREPARE (CROSSMATCH) RBC UNIT(S), 2 Units (10/27/2019 1:43 AM [facility]) Unit Description LR Red Cells [facility] Unit ABO O [facility] Unit Rh POS [facility] Product Number RA1 [facility] Unit Donor # [id number] [facility] Unit Status transfused [facility] Product Code [id number] [facility] Blood Type Barcode 5100 [facility] Unit Description LR Red Cells [facility] Unit ABO O [facility] Unit Rh POS [facility] Product [facility] RA1 [facility] Unit Donor # [id number] [facility] Unit Status transfused [facility] Product Code [id number] [facility] Blood Type Barcode 5100 [facility] Blood Bank BLOOD SPECIMEN / Unknown 10/27/2019 1:43 AM [facility] 10/27/2019 1:43 AM [facility] Kapil Gonsalves MD LAB - BLOOD BANK ORD ERABLES [facility] [address] [place] [address] * PREPARE FFP UNIT(S), 1 Units (10/27/2019 1:43 AM [facility]) Unit Description Plasma, Thawed [facility] Unit ABO A [facility] Unit Rh NEG [facility] Product Number F00 [facility] Unit Donor # [id number] [facility] Unit Status transfused [facility] Product Code [id number] [facility] LAB Blood Type Barcode 0600 [facility] Blood Bank BLOOD SPECIMEN / Unknown 10/27/2019 1:43 AM [facility] 10/27/2019 1:43 AM [facility] Kapil Gonsalves MD LAB - BLOOD BANK ORD ERABLES Performing Organization Address City/[facility]/ZIP Co de Phone Number [facility] [address] [place] [address] * 4 Units (10/27/2019 1:43 AM [facility]) Unit Description LR Whole Blood [facility] Unit ABO O [facility] Unit Rh POS [facility] Product Number WBL [facility] Unit Donor # [id number] [facility] Unit Status transfused [facility] Product Code [id number] [facility] Blood Type Barcode 5100 [facility] Unit Description LR Whole Blood [facility] Unit ABO O [facility] Unit Rh POS [facility] Product Number WBL [facility] Unit Donor [facility] [id number] [facility] Unit Status transfused [facility] Product Code [id number] [facility] Blood Type Barcode 5100 [facility] Unit Description LR Whole Blood [facility] Unit ABO O [facility] Unit Rh POS [facility] Product [facility] WBL [facility] Unit Donor # [id number] [facility] Unit Status released [facility] Product Code [id number] [facility] Blood Type Barcode 5100 [facility] Unit Description LR Whole Blood [facility] Unit ABO O [facility] Unit Rh POS [facility] Product Number WBL [facility] Unit Donor # [id number] [facility] Unit Status released [facility] Product Code [id number] [facility] Blood Type Barcode 5100 [facility] Blood Bank BLOOD SPECIMEN / Unknown 10/27/2019 1:43 AM CHARGER TESTER 10/27/2019 1:43 AM CHARGER TESTER Sam Landry MD LAB - BLOOD BANK OR DERABLES [facility] [address] * PREPARE PLATELET PHERESIS UNIT(S), 1 Units (10/27/2019 1:43 AM CHARGER TESTER) Unit Description PL Pheres LR IRR [facility] Unit ABO A [facility] Unit Rh NEG [facility] Product Number P6 [facility] Unit Donor # [id number] [facility] Unit Status released [facility] Product Code [id number] [facility] Blood Type Barcode 0600 [facility] Blood Bank BLOOD SPECIMEN / Unknown 10/27/2019 1:43 AM CHARGER TESTER 10/27/2019 1:43 AM CHARGER TESTER Fiorella Jaffe MD LAB - BLOOD BANK ORD ERABLES [facility] [address] * PREPARE FFP UNIT(S), 6 Units (10/27/2019 1:43 AM CHARGER TESTER) Unit Description Plasma, Thawed [facility] Unit ABO AB [facility] Unit Rh POS [facility] Product Number FF1 [facility] Unit Donor # [id number] [facility] Unit Status released [facility] Product Code [id number] [facility] Blood Type Barcode 8400 [facility] Unit Description Plasma, Thawed [facility] Unit ABO AB [facility] Unit Rh POS [facility] Product Number FF1 [facility] Unit Donor # [id number] [facility] Unit Status released [facility] Product Code [id number] [facility] Blood Type Barcode 8400 [facility] Unit Description Plasma, Thawed [facility] Unit ABO AB [facility] Unit Rh POS [facility] Product Number F00 [facility] Unit Donor # [id number] 5 [facility] Unit Status released [facility] Product Code [id number] [facility] Blood Type Barcode 8400 [facility] Unit Description Plasma, Thawed [facility] Unit ABO AB [facility] Unit Rh POS [facility] Product Number F00 [facility] Unit Donor # [id number] [facility] Unit Status released [facility] Product Code [id number] [facility] Blood Type Barcode 8400 [facility] Blood Bank BLOOD SPECIMEN / Unknown 10/27/2019 1:43 AM CHARGER TESTER 10/27/2019 1:43 AM CHARGER TESTER Fiorella Jaffe MD LAB - BLOOD BANK ORD ERABLES [facility] [address] [place] [address] * PREPARE (CROSSMATCH) RBC UNIT(S), 6 Units (10/27/2019 1:43 AM CHARGER TESTER) Unit Description LR Red Cells [facility] Unit ABO O [facility] Unit Rh NEG [facility] Product Number RL1 [facility] Unit Donor # [id number] 7 [facility] Unit Status released [facility] Product Code [id number] [facility] Blood Type Barcode 9500 [facility] Unit Description LR Red Cells [facility] Unit ABO O [facility] Unit Rh NEG [facility] Product Number RL7 [facility] Unit Donor # [id number] [facility] Unit Status released [facility] Product Code [id number] [facility] OD [facility]ANK LAB Blood Type Barcode 9500 [facility] Unit Description LR Red Cells [facility] Unit ABO O [facility] Unit NEG [facility] Product Number RA1 [facility] Unit Donor # [id number] [facility] Unit Status released [facility] Product Code [id number] [facility] OD [facility]ANK [facility] Blood Type Barcode 9500 [facility] Unit Description LR Red Cells [facility] Unit ABO O [facility] Unit NEG [facility] Product Number RL1 [facility] Unit Donor # [id number] 5 [facility] Unit Status released [facility] Product Code [id number] [facility] OD [facility] Blood Type Barcode 9500 [facility] Unit Description LR Red Cells [facility] Unit ABO O [facility] Unit NEG [facility] Product Number RA2 [facility] Unit Donor # [id number] [facility] Unit Status released [facility] Product Code [id number] [facility] OD [facility] Blood Type Barcode 9500 [facility] Unit Description LR Red Cells [facility] Unit ABO O [facility] Unit NEG [facility] Product Number RL1 [facility] Unit Donor # [id number] [facility] Unit Status released [facility] Product Code [id number] [facility] Blood Type Barcode 9500 [facility] Blood Bank BLOOD SPECIMEN / Unknown 10/27/2019 1:43 AM CHARGER TESTER 10/27/2019 1:43 AM CHARGER TESTER Fiorella Jaffe MD LAB - BLOOD BANK ORD ERABLES [facility] [address] * (ABNORMAL) BLOOD GASES ART COMPLETE [facility] OR (10/27/2019 1:33 AM CHARGER TESTER) pH Arterial 7.39 7.35 - 7.45 10/27/2019 1:40 AM [facility] pCO2 Arterial 30(L) 35 - 45 mmHg 10/27/2019 1:40 AM [facility] pO2 Arterial 311 mmHg 10/27/2019 1:40 AM [facility] HCO3 Arterial 18.0(L) 22.0 - 26.0 mmol/L 10/27/2019 1:40 AM [facility] TCO2 Arterial 19.0(L) 25.0 - 29.0 mmol/L 10/27/2019 1:40 AM [facility] Base Excess Arterial -6.0(L) -2.0 - 2.0 mmol/L 10/27/2019 1:40 AM [facility] Hemoglobin Arterial 10.3(L) 12.0 - 15.5 g/dL 10/27/2019 1:40 AM [facility] Oxyhemoglobin Arterial 97.2 92.0 - 100.0 % 10/27/2019 1:40 AM [facility] Carboxyhemoglobin 1.4 0.0 - 3.0 % 10/27/2019 1:40 AM [facility] Methemoglobin 0.2 0.0 - 2.0 % 10/27/2019 1:40 AM [facility] FI O2 Arterial 99.0 % 10/27/2019 1:40 AM [facility] Ionized Calcium Whole Blood 0.97 mmol/L 10/27/2019 1:40 AM [facility] Adjusted Ionized Calcium 0.96(L) 1.19 - 1.34 mmol/L 10/27/2019 1:40 AM [facility] Sodium Whole Blood 133(L) 135 - 145 mmol/L 10/27/2019 1:40 AM [facility] Potassium Whole Blood 2.7(LL) 3.5 - 5.5 mmol/L 10/27/2019 1:40 AM [facility] Chloride Whole Blood 109 mmol/L 12/2019 1:40 AM [facility] Glucose Whole Blood 179(H) 70 - 110 mg/dL 10/27/2019 1:40 AM [facility] Lactic Acid Whole Blood 2.4 0.5 - 3.4 mmol/L 10/27/2019 1:40 AM [facility] Blood ARTERIAL BLOOD SPECIMEN / Unknown Venipuncture / Unknown 10/27/2019 1:33 AM CHARGER TESTER 10/27/2019 1:38 AM CHARGER TESTER Awilda Gardner MD LAB - BLOOD GASES ORDERABLES Performing Organization Address [facility]/ZIP Co de Phone Number [address] [phone] * TYPE + SCREEN PANEL (10/27/2019 1:20 AM CHARGER TESTER) Antibody Screen NEG 0 2:23 AM [facility] ABO Rh O POS 10/27/2019 2:23 AM [facility] Blood Bank BLOOD SPECIMEN / Unknown Venipuncture / Unknown 10/27/2019 1:20 AM CHARGER TESTER 10/27/2019 1:26 AM CHARGER TESTER Rio Bhakta MD LAB - BLOOD BANK ORD ERABLES [facility] [address] [place] [address] * (ABNORMAL) DIFFERENTIAL MANUAL (10/27/2019 1:19 AM CHARGER TESTER) WBC (corrected for NRBC) 12.9 10? 3 /uL 10/27/2019 1:59 AM [facility] Total Cell Count 100 10/27/2019 1:59 AM [facility] Neutrophils Absolute Manual 7.10(H) 1.60 - 7.00 10? 3 /uL 10/27/2019 1:59 AM [facility] Comment:(BANDS+SEGS) x WBC = NEUT # (ANC) Lymphocyte Absolute Manual 4.64(H) 0.80 - 2.90 10? 3 /uL 10/27/2019 1:59 AM [facility] Monocytes Absolute Manual 1.03(H) 0.14 - 0.66 10? 3 /uL 10/27/2019 1:59 AM [facility] Eosinophils Absolute Manual 0.13 0.00 - 0.22 10? 3 /uL 10/27/2019 1:59 AM [facility] Neutrophil % Manual 55 30 - 60 % 10/27/2019 1:59 AM [facility] Lymphocyte % Manual 36 20 - 45 % 10/27/2019 1:59 AM [facility] Monocytes % Manual 8 2 - 10 % 10/27/2019 1:59 AM [facility] Eosinophils % Manual 1 1 - 6 % 10/27/2019 1:59 AM [facility] Platelet Estimate Adequate Adequate 10/27/2019 1:59 AM [facility] RBC Morphology Normal 10/27/2019 1:59 AM [facility] Blood BLOOD SPECIMEN / Unknown Venipuncture / Unknown 10/27/2019 1:19 AM CHARGER TESTER 10/27/2019 1:22 AM CHARGER TESTER Rio Bhakta MD LAB - HEMATOLOGY ORD ERABLES Performing Organization Address City/State/[facility] Co de Phone Number [facility] [address] [place] [address] * PTT [facility] (10/27/2019 1:19 AM CHARGER TESTER) APTT 25.9 23.0 - 38.4 Seconds 10/27/2019 1:38 AM [facility] Comment:Suggested therapeuti c range for full dose I.V. unfractionated heparin therapy for venous thromboembolism is 71 to 109 seconds. Blood BLOOD SPECIMEN / Unknown Venipuncture / Unknown 10/27/2019 1:19 AM CHARGER TESTER 10/27/2019 1:22 AM CHARGER TESTER Rio Bhakta MD LAB - COAGULATION OR DERABLES Performing Organization Address [facility] Co de Phone Number [address] [phone] * PT-INR [facility] (10/27/2019 1:19 AM CHARGER TESTER) PT 13.6 12.1 - 14.8 Seconds 10/27/2019 1:37 AM [facility] INR 1.1 See Comment 10/27/2019 1:37 AM [facility] Comment:The suggested therap eutic range for standard coumadin (warfarin) therapy is an INR of 2.0-3.0. For high-risk patients (Mechanical Mitral Valve Prosthesis, etc.), the suggested prophylactic therapeutic range is an INR of 2.5-3.5. Blood BLOOD SPECIMEN / Unknown Venipuncture / Unknown 10/27/2019 1:19 AM CHARGER TESTER 10/27/2019 1:22 AM [facility] Rio Bhakta MD LAB - COAGULATION OR DERABLES Performing Organization Address [facility] Co de Phone Number [address] [phone] * HCG BETA BLOOD QUANTITATIVE (10/27/2019 1:19 AM CHARGER TESTER) Pathologist [facility] Beta-hCG Total Quantitative <2 <5 mIU/mL 10/27/2019 1:45 AM [facility] Comment: This assay is cleared for [...] Unknown Venipuncture / Unknown 10/27/2019 1:19 AM CHARGER TESTER 10/27/2019 1:22 AM CHARGER TESTER Rio Bhakta MD LAB - CHEMISTRY ANGELA JONES [facility] [address] [place] [address], [facility] [phone] * (ABNORMAL) COMPREHENSIVE METABOLIC PANEL (10/27/2019 1:19 AM [facility]) BUN 14 7 - 26 mg/dL 10/27/2019 1:42 AM [facility] Creatinine 0.8 0.6 - 1.2 mg/dL 10/27/2019 1:42 AM [facility] Sodium 141 136 - 145 mmol/L 10/27/2019 1:42 AM [facility] Potassium 2.7(LL) 3.5 - 4.5 mmol/L 10/27/2019 1:42 AM [facility] Chloride 108(H) 98 - 107 mmol/L 10/27/2019 1:42 AM [facility] CO2 19(L) 22 - 29 mmol/L 10/27/2019 1:42 AM [facility] Glucose 173(H) 70 - 115 mg/dL 10/27/2019 1:42 AM [facility] Calcium 8.4 8.4 - 10.2 mg/dL 10/27/2019 1:42 AM [facility] Protein Total 6.1 6.0 - 8.3 g/dL 10/27/2019 1:42 AM [facility] Albumin 3.7 3.4 - 5.0 g/dL 10/27/2019 1:42 AM [facility] Bilirubin Total 0.5 0.2 - 1.2 mg/dL 10/27/2019 1:42 AM [facility] Alkaline Phosphatase 44 40 - 150 Units/L 10/27/2019 1:42 AM [facility] ALT 18 0 - 55 Units/L 10/27/2019 1:42 AM [facility] AST 33 5 - 34 Units/L 10/27/2019 1:42 AM [facility] Anion Gap 17 8 - 18 10/27/2019 1:42 AM [facility] BUN/Creatinine Ratio 18 7 - 23 10/27/2019 1:42 AM [facility] Osmolality Calculated 297 270 - 300 mOsm/kg 10/27/2019 1:42 AM [facility] Albumin/Globulin Ratio 1.5 1.1 - 2.3 10/27/2019 1:42 AM [facility] eGFR >60 >60 mL/min/1.7 3 m2 10/27/2019 1:42 AM [facility] Blood BLOOD SPECIMEN / Unknown Venipuncture / Unknown 10/27/2019 1:19 AM CHARGER TESTER 10/27/2019 1:22 AM CHARGER TESTER Rio Bhakta MD LAB - CHEMISTRY ANGELA JONES [facility] Organization Address City/State/ZIP Co de Phone Number [facility] [address] [place] [address] * (ABNORMAL) CBC W AUTO DIFFERENTIAL (10/27/2019 1:19 AM [facility]) WBC 12.9(H) 3.5 - 10.5 10? 3 /uL 10/27/2019 1:27 AM [facility] RBC 3.32(L) 3.90 - 5.00 10? 6 /uL 10/27/2019 1:27 AM [facility] Hemoglobin 10.5(L) 12.0 - 15.5 g/dL 10/27/2019 1:27 AM [facility] Hematocrit 32.1(L) 35.0 - 45.0 % 10/27/2019 1:27 AM [facility] MCV 96.7 81.0 - 97.0 fL 10/27/2019 1:27 AM [facility] MCH 31.6 28.0 - 34.0 pg 10/27/2019 1:27 AM [facility] MCHC 32.7 32.0 - 36.0 g/dL 10/27/2019 1:27 AM [facility] Platelet Count 251 150 - 400 10? 3 /uL 10/27/2019 1:27 AM [facility] RDW-SD 41.3 36.0 - 50.0 fL 10/27/2019 1:27 AM [facility] RDW-CV 11.8 11.2 - 14.8 % 10/27/2019 1:27 AM [facility] MPV 10.7 9.3 - 12.8 fL 10/27/2019 1:27 AM [facility] nRBC Absolute 0.00 0 10? 3 /uL 10/27/2019 1:27 AM CHARGER TESTER [facility] nRBC Auto 0.0 0 /100 WBC 10/27/2019 1:27 AM [facility] Blood BLOOD SPECIMEN / Unknown Venipuncture / Unknown 10/27/2019 1:19 AM CHARGER TESTER 10/27/2019 1:22 AM CHARGER TESTER Rio Bhakta MD LAB - HEMATOLOGY ORD ERABLES Performing Organization Address [facility]/ZIP Co de Phone Number [address] [phone] * ALCOHOL ETHYL BLOOD (10/27/2019 1:19 AM CHARGER TESTER) Interpretation Ethanol None Detected None Detected mg/dL 10/27/2019 1:39 AM [facility] Comment:Ethanol levels less than 10 mg/dL are resulted as None detected . Blood BLOOD SPECIMEN / Unknown Venipuncture / Unknown 10/27/2019 1:19 AM CHARGER TESTER 10/27/2019 1:22 AM CHARGER TESTER Rio Bhakta MD LAB - CHEMISTRY ORDE RABLES Performing Organization Address [facility] de Phone Number [address] [phone] * XR CHEST 1VW PORTABLE (10/27/2019 1:17 AM CHARGER TESTER) Anatomical Region Laterality Modality Chest Radiographic Radha ging 10/27/2019 8:12 AM CHARGER TESTER Impressions 10/27/2019 12:49 PM CHARGER TESTER IMPRESSION: No acute pulmonary process. Dictated by Lakisha Power MD (pharmacy resident). I, Dr. ALMA ROSA CORDON have personally reviewed and interpreted this examination/study. This report was electronically signed by ALMA ROSA CORDON ??on 10/27/2019 12:49 PM . Narrative 10/27/2019 12:49 PM CHARGER TESTER EXAMINATION: XR CHEST 1VW PORTABLE HISTORY: T14.90XA: [...] pulmonary process. Dictated by Lakisha Power MD (pharmacy resident). Dr. ALMA ROSA Simmons have personally reviewed and interpreted this examination/study. This report was electronically signed by ALMA ROSA CORDON on 10/27/2019 12:49 PM . Rio Bhakta MD DIAGNOSTIC IMAGING O RDERABLES * XR PELVIS 1 OR 2VW (10/27/2019 1:17 AM CHARGER TESTER) Anatomical Region Laterality Modality Pelvis Radiographic Radha ging 10/27/2019 8:11 AM CHARGER TESTER Impressions 10/27/2019 12:49 PM CHARGER TESTER IMPRESSION: No acute fracture or dislocation identified. Dictated by Lakisha Power MD ([employer] [place] Dr. ALMA ROSA Simmons have personally reviewed and interpreted this examination/study. This report was electronically signed by ALMA ROSA CORDON ??on 10/27/2019 12:49 PM . Narrative 10/27/2019 12:49 PM CHARGER TESTER EXAMINATION: XR PELVIS 1 OR 2VW HISTORY: [...] dislocation identified. Dictated by Lakisha Power MD ([employer] [place]). I, Dr. ALMA ROSA CORDON have personally [...] kidney with open wound into abdominal cavity Open wound of abdominal wall, sequela documented in this encounter Administered Medications Inactive [...] 0957 ($ Given - Provider: Hanh Cole RN)2053 ($ Given - Provider: Kimberley Kerns RN) 1005 ($ Given - Provider: Hanh Cole RN)2134 ($ Given [...] RN) 1005 (Removed - Provider: Hanh Cole RN)2133 ($ Applied - Provider: Kimberley Kerns RN) 0844 (Removed - Provider: Hanh Cole RN) Tdap (erkoivi-xyjhuphojy-jdve l pertussis) (BOOSTRIX) (7y+) injection 0.5 mL 0.5 mL, Intramuscular, IMMUNIZATION ONCE, 1 dose, On Thu10/27/19 at 0145, Can be administered to patients [...] 2209 ($ New Bag/Syringe - Provider: Kimberley Kerns, RN) 2134 (Stopped - Provider: Kimberley Kerns, RN)2218 (Stopped - Provider: Kimberley Kerns RN) [...] hours. 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
--- OUTSIDE RECORDS SUMMARY | 2024-08-30 03:00 | XMS_ITS | Encounter Summary ---
Author Organization [facility] Address [address] [place] [address] Care Team Providers Care Supervising Editor Trailer Name Role Phone Laura Reid MD Primary Care Provider [phone] Reason for Visit * Auth/Cert Specialty Diagnoses / Procedures Referred By Kaleigh belle Referred To Contact Diagnoses Diagnosis unknown Diagnosis unknown [R69] Procedures LAPAROSCOPIC FULGURATION/EXCISION LESION PELVIC/OVARY (LASER) Referral ID Status Reason Start Date Expiration Date Visits Re quested Visits Authorized [id number] 1 1 Encounter Details Date Type Department Care Team (Late Contact Info) Description 09/19/2019 7:59 AM BRACELET FORMER Anesthesia Event [facility] [address] [place] [address] Sergio Quezada MD [address] [facility] [place] [address] Anesthesia Record Procedure Summary Procedure Name Responsible Anesthesiologist Anesthesia Start Time Anesthesia Stop Time DIAGNOSTIC LAPAROSCOPY, EXCISION OF ENDOMETRIOSIS WITH CO2 LASER (Abdomen) Sergio Quezada MD 09/19/19 0759 09/19/19 0944 Events Date Time Event Comment 09/19/2019 0759 An Start 0759 An Start Data 0804 PT Reassessment 0809 Induction 0809 An Intubation 0824 Timeout Anesthesia part icipated in timeout at the time documented in the record by nursing. 0826 Incision 0939 Extubation 0939 an stop data 0939 Electnc Sig 0939 ANPTO2 0944 An Stop Meds Name Total midazolam 2 mg/2mL injection 2 mg fentaNYL 250 mcg/5mL injection 250 mcg lidocaine 2% injection (20 mg/ml) 50 mg propofol 200mg/20mL injection 150 mg rocuronium 50mg/5mL injection 50 mg dexamethasone 4 mg/ml injection 4 mg ondansetron 4 mg/2mL injection 4 mg ketorolac 30 mg/ml injection 30 mg sugammadex 200 mg/2 mL injection 200 mg ceFAZolin 2 g IVPB 2 g lactated ringers infusion 700 mL * Agents Name Insp. N2O Exp. Sevoflurane Exp. N2O O2 Insp. Sevoflurane N2O * Blood No blood administrations on file. Lines, Drains, and Airways Type Details Placement Removal Peripheral IV Date: 09/19/19; Time : 0800; Orientation: Right 09/19/19 0800 by Minnie Gasca RN 09/19/19 1208 by Minnie Gasca RN ETT Date: 09/19/19; Time : 0809; Placed By: MAIK Rebolledo; Vent: easy mask; Induction: Standard IV; Blade Type: Mary; Blade Size: 4; Laryngoscopy View: Grade 1 (full cords); Intubation Adjuncts: Stylet; Tube: Endotracheal Tube; Placement: Oral; Tube Type: Cuffed-inflated; Tube Size(mm): 7 MM; Depth of Insertion: 22 CM; Measured From: teeth; Attempts: 1; Cuff Infated: Air; Cuff Vol(mL): 4 mL; Verified By: Direct visualization, Chest Auscultation, CO2 Monitor 09/19/19 0809 by Francisco Alejandra APRN-CRNA 09/19/19 0939 by Francisco Alejandra APRN-CRNA Procedural Site (Incision) 09/19/19; 0824; Abdomen; Laparoscopic; 09/19/19; 1859 09/19/19 0824 by Juana Rivas RN 09/19/19 185 by Generic, Auto Release Urethral Catheter 09/19/19; 0835; MD TRAN; Straight-tip, Latex, Double-lumen / 2-Way; 16; 10 mL; General Anesthesia; 09/19/19; 0958; Per order; MD tran 09/19/19 0835 by Juana Rivas RN 09/19/19 0958 by Juana Rivas RN Procedural Site (Incision) 09/19/19; 925; (BLADDER); 09/19/19; 185809/19/19 09 by Juana Rivas RN 09/19/191858 by Generic, Auto Release Cont Nerve Block Catheter Date: 09/19/19; Time: 0950; Placed By: MD TRAN 09/19/19949 by Juana Rivas RN 09/19/191858 by Lobo Auto Release documented in this encounter Social History Tobacco Use Types Packs/Day Years Used Date Smoking Tobacco: Some Days Cigarettes 0.5 1 Smokeless Tobacco: Never Alcohol Use Standard Drinks/Week Comments No 0 (1 standard drink = 0.6 oz pur e alcohol) Sex and Gender Information Value Date Recorded Sex Assigned at Not on file Gender Identity Not on file Sexual Orientation Not on file documented as of this encounter Progress Notes * Sergio Quezada MD - 09/19/2019 10:14 AM CST ANESTHESIA POSTOP EVALUATION NOTE Procedure: DIAGNOSTIC LAPAROSCOPY, EXCISION OF ENDOMETRIOSIS WITH CO2 LASER, LAPAROSCOPIC APPENDECTOMY, CYSTOSCOPY WITH HYDRODISTENTION (N/A Abdomen) Josephine Alejandre is a 19 year old female Patient Vitals for the past 6 hrs: BP Temp Pulse Resp SpO2 Pain Rating Score #1 Pain Scale/Observation 09/19/19 0650 120/74 97.5 ??F (36.4 ??C) 65 16 100 % 4 N 09/19/19 0940 145/93 96.8 ??F (36 ??C) 74 19 100 % 0 No/denies pain;N;F;B;Resting with eyes closed 09/19/19 0945 103/86 -- 72 17 100 % 0 No/denies pain;N;F;B;Resting with eyes closed 09/19/19 0950 150/80 -- 82 16 100 % 0 No/denies pain;N;F;B;Resting with eyes closed 09/19/19 0955 -- -- 77 18 100 % 4 N;F;RAFFY;B 09/19/19 1000 135/59 -- 73 13 100 % -- -- Anesthesia Type: general ETT Pre-op Diagnosis Codes: * Diagnosis unknown [R69] Mental Status: awake, sufficiently recovered from acute administration of anesthesia to participatein the evaluation and neurologic status has returned to expected level of consciousness Neuro Status: No numbness, tingling or visual disturbances Respiratory Function: natural Cardiac Function: stable Postop Pain: acceptable to the patient Postop Hydration: adequate Postop Nausea: none Assessment: no apparent anesthetic complications, patient tolerated procedure well and no evidence of recall Patient Disposition: Release from Anesthesia Care Non Reportable Improvement Section (otherwise blank): ELET FORMER * Sergio Quezada MD - 09/19/2019 7:03 AM CST ANESTHESIA PREOPERATIVE EVALUATION NOTE Procedure: DIAGNOSTIC LAPAROSCOPY, EXCISION OF ENDOMETRIOSIS WITH CO2 LASER, POSSIBLE LAPAROSCOPIC APPENDECTOMY, CYSTOSCOPY WITH HYDRODISTENTION (N/A Abdomen) NPO status: Since Midnight;*Except Oral meds with H2O (09/19/2019 6:53 AM) Last Solids/Dairy: 1800 (09/19/2019 6:53 AM) Last Clear Liquids: 0653 (09/19/2019 6:53 AM) Vitals: Patient Vitals for the past 6 hrs: BP Temp Pulse Resp SpO2 Pain Rating Score #1 09/19/19 0650 120/74 97.5 ??F (36.4 ??C) 65 16 100 % 4 ANESTHESIA PRE-EVALUATION NOTE Physical Exam: Orientation X3 Airway/Mallampati Score: III Mouth Opening Distance: 2.5 fingerwidths Neck ROM: full TM Distance: > 3 FB Teeth: normal Heart: regular rate rhythm Lungs: normal Review of Systems: History of anesthetic complications: unknown history/adapted. GERD: No Poor Exercise Tolerance: No Recent Chest Pain: No Shortness of Breath: No AICD/Pacemaker: No Renal Disease: No ANESTHESIA PLAN ASA Score: 2 NPO Status: No solids since midnight and No liquids within 2 hours Anesthesia Plan: general ETT Planned Induction: intravenous Planned Postop Destination: PACU Anesthetic plan was discussed with: patient Anesthetic Plan discussion was: Consented Use of blood products were discussed with: patient Use of blood product discussion was: Consented The patient's procedural Anesthetic Plan was discussed with the MEDICAL VOUCHER CLERK. BMI, Height, Weight Tobacco History Estimated body mass index is 26.89 kg/m?? as calculated from the following: Height as of this encounter: 1.575 m (5' 2 ). Weight as of this encounter: 66.7 kg (147 lb). Social History Tobacco Use Smoking Status Current Some Day Smoker ??? Packs/day: 0.50 ??? Years: 1.00 ??? Pack years: 0.50 ??? Types: Cigarettes Smokeless Tobacco Never Used Alcohol History Drug History Social History Substance and Sexual Activity Alcohol Use No ??? Alcohol/week: 0.0 standard drinks Social History Substance and Sexual Activity Drug Use Yes ??? Types: Marijuana Comment: daily Outpatient Medications: Inpatient Medications: No outpatient medications have been marked as taking for the 09/19/19 encounter (Hospital Encounter). Current Facility-Administered Medications Medication Dose Last Dose ??? lactated ringers ??? lidocaine 0.2 mL 0.2 mL at 09/19/19 0657 ??? scopolamine 1 patch 1 patch at 09/19/19 0656 And ??? scopolamine patch placement confirmation Allergies: Allergies Allergen Reactions ??? Topamax [Topiramate] Psychiatric Psychological problems Relevant Problems No relevant active problems Problem List: Patient Active Problem List Diagnosis Date Noted ??? Low iron stores 09/01/2015 Priority: Not [...] Past Surgical History: Procedure Laterality Date ??? [place] Tooth Extraction 2018 Lab Results: Recent Labs Component Name 09/14/19 1409 WBC 8.6 HGB 12.7 HCT 39.5 PLTCOUNT 282 Recent Labs Component Name 09/14/19 1409 SODIUM 138 POTASSIUM 3.9 CHLORIDE 107 CO2 22* BUN 14 CREATININE 0.76 Recent Labs Component Name 09/14/19 1409 GLUCOSE 89 CALCIUM 9.0 ALT 12 AST 16 Recent Labs Component Name 09/19/19 0650 HCGURINE Negative Pt/ smoked marijuana less then 48 hours ago. Risks explained and asknowleged. Options given, pt. Wants to proceed. ELET FORMER documented in this encounter Procedure Notes * Francisco Alejandra APRN-CRNA - 09/19/2019 8:15 AM CSTAssociated Order(s): ETT Placement Endotracheal Tube Placement: Patient Location: OR. Intubation Event Date/Time: 09/19/2019 8:09 AM Procedure: intubation ([id number]). Procedure Section: Sedation: under general anesthesia. Indications for Airway Management: anesthesia Induction: standard IV Patient Position: supine Mask Ventilation: easy. Blade Type: Mary Blade Size: 4 Laryngoscopy View: grade 1 (full cords) Intubation Adjuncts: stylet Tube: endotracheal tube Placement: oral Tube type: cuff - inflated Tube Size (MM): 7 Depth of Insertion (CM): 22 Measured From: teeth Cuff volume (mL): 4 Cuff Inflated With: air Number of Attempts: 1. Placement Verified By: direct visualization, chest auscultation and CO2 monitor Tube secured with: adhesive tape. Difficult Airway? No. Procedure Start Time: 09/19/2019 8:09 AM. Procedure End Time: 09/19/2019 8:10 AM. Procedure Total Time: 1 minutes. Staff Section Anesthesia Provider: Francisco Alejandra APRN-CRNA, Performed the procedure ELET FORMER documented in this encounter Miscellaneous Notes * Anesthesia Transfer of Care - Francisco Alejandra APRN-CRNA - 09/19/2019 9:45 AM CST ANESTHESIA TRANSFER OF CARE NOTE Today's Date: 09/19/2019 Date of : 2000 Patient: Josephine Alejandre Procedure(s): DIAGNOSTIC LAPAROSCOPY, EXCISION OF ENDOMETRIOSIS WITH CO2 LASER, LAPAROSCOPIC APPENDECTOMY, CYSTOSCOPY WITH HYDRODISTENTION Surgeon(s): Primary: Albert Huddleston MD Preop Diagnosis: Pre-op Diagnois: * Diagnosis unknown [R69] Pre-op Meds (From admission, onward) Start Stop Status Route Frequency Ordered 09/19/19 0645 acetaminophen (TYLENOL) tablet 1,000 mg 09/19 655 Completed PO ONCE 09/19/19 0639 09/19/19 09 fentaNYL (PF) (SUBLIMAZE) injection 50 mcg -- Sent IV EVERY 3 MIN PRN 09/19/19 0939 09/19/19 0939 HYDROmorphone (DILAUDID) injection 0.5 mg -- Sent IV EVERY 5 MIN PRN 09/19/19 0939 09/19/19 0645 lactated ringers infusion -- Verified IV PRE-OP CONTINUOUS 09/19/19 0639 09/19/19 0945 lactated ringers infusion -- Sent IV CONTINUOUS 09/19/19 0939 09/19/19 0639 lidocaine (XYLOCAINE MPF) 1 % injection 0.2 mL -- Verified INFILTRATION PRE-OP MULTIPLE 09/19/19 0639 09/19/19 0939 morphine injection 4 mg -- Sent IV EVERY 5 MIN PRN 09/19/19 0939 09/19/19 0939 naloxone (NARCAN) injection 0.04 mg -- Sent IV POST-OP MULTIPLE 09/19/19 0939 09/19/19 0939 ondansetron (ZOFRAN) injection 4 mg -- Sent IV ONCE PRN 09/19/19 0939 09/19/19 0745 ropivacaine (NAROPIN ON-Q) 0.2% in ELASTOMERIC PUMP 550 mL -- Dispensed INFILTRATION CONTINUOUS 09/19/19 0713 09/19/19 0645 scopolamine (TRANSDERM-SCOP) 1 patch 09/22 655 Verified TD ONCE 09/19/19 0639 09/19/19 09 scopolamine patch placement confirmation -- Dispensed TD 2 TIMES DAILY 09/19/19 0639 Post-op Diagnosis: * Diagnosis unknown [R69] . Allergies Allergen Reactions ??? Topamax [Topiramate] Psychiatric Psychological problems Vitals: Patient Vitals for the past 3 hrs: BP Temp Pulse Resp SpO2 Pain Rating Score #1 09/19/19 0940 145/93 96.8 ??F (36 ??C) 74 19 -- -- 09/19/19 0650 120/74 97.5 ??F (36.4 ??C) 65 16 100 % 4 Lines, Drains, and Airways Type Details Placement Removal ETT Date: 09/19/19; Time: 0809; Placed By: MAIK Rebolledo; Vent: easy mask; Induction: Standard IV; Blade Type: Mary; Blade Size: 4; Laryngoscopy View: Grade 1 (full cords); IntubationAdjuncts: Stylet; Tube: Endotracheal Tube; Placement: Oral; Tube Type: Cuffed-inflated; Tube Size(mm): 7 MM; Depth of Insertion: 22 CM; Measured From: teeth; Attempts: 1; Cuff Infated: Air; Cuff Vol(mL): 4 mL; Verified By: Direct visualization, Chest Auscultation, CO2 Monitor 09/19/19 0809 by Francisco Alejandra APRN-CRNA 09/19/19 0939 by Francisco Alejandra APRN-CRNA Intraprocedure I/O Totals Urine Output Urine 250 mL Anesthesia Other Output Estimated Blood Loss 10 mL lactated ringers infusion Volume infused 700 ml Patient Transfer Location: PACU Transport Airway: spontaneous respirations, supplemental O2 and oral airway Complications: None Handoff Given? Yes Checklist or [...] of report from the receiving PACUteam. MAIK Rebolledo ELET FORMER documented in this encounter Plan of Treatment Not on file documented as of this encounter Procedures Procedure Name Priority Date/Time Associated Diagnosis Comments ENDOTRACHEAL TUBE NOTE Routine 09/19/2019 8:15 AM BRACELET FORMER documented in this encounter Results * ETT LINE PERFORMABLE (09/19/2019 8:15 AM BRACELET FORMER) Narrative Francisco Alejandra APRN-CRNA - 09/19/2019 8:15 AM BRACELET FORMER Francisco Alejandra APRN-CRNA ? 09/19/2019 ??8:15 AM Endotracheal Tube Placement: ? Patient Location: OR. Intubation Event Date/Time: ??09/19/2019 8:09 AM Procedure: intubation ([id number]). Procedure Section: ?? Sedation: under general anesthesia. [...] Sergio Quezada MD GENERAL ANESTHESIA O RDERABLES documented in this encounter Visit Diagnoses Not on filedocumented in this encounter Administered Medications Inactive Administered Medications - up to 3 most recent administrations Medication Order MAR Action Action Date Dose Rate Site ceFAZolin (ANCEF) 2,000 mg in 50 ml IVPB PRN, Starting on Thu09/19/19 at 0814, Until Thu09/19/19 at 0939, Anesthesia Intra-op $ Given 09/19/2019 8:14 AM BRACELET FORMER 2 g dexamethasone (DECADRON) injection Intravenous, PRN, Starting on Thu09/19/19 at 0833, Until Thu09/19/19 at 0939, Anesthesia Intra-op $ Given 09/19/2019 8:33 AM BRACELET FORMER 4 mg fentaNYL (PF) (SUBLIMAZE) injection PRN, Starting on Thu09/19/19 at 0759, Until Thu09/19/19 at 0939, Anesthesia Intra-op $ Given 09/19/2019 9:15 AM BRACELET FORMER 50 mcg $ Given 09/19/2019 8:47 AM BRACELET FORMER 50 mcg $ Given 09/19/2019 8:24 AM BRACELET FORMER 50 mcg ketorolac (TORADOL) injection PRN, Starting on Thu09/19/19 at 0914, Until Thu09/19/19 at 0939, Anesthesia Intra-op $ Given 09/19/2019 9:14 AM BRACELET FORMER 30 mg lactated ringers infusion at 20 mL/hr, Intravenous, PRE-OP CONTINUOUS, Starting on Thu09/19/19 at 0645, Until Thu09/19/19 at 1359, Pre-op $ New Bag/Syringe 09/19/2019 7:59 AM BRACELET FORMER lidocaine (XYLOCAINE) 2 % injection PRN, Starting on Thu09/19/19 at 0807, Until Thu09/19/19 at 0939, Anesthesia Intra-op $ Given 09/19/2019 8:07 AM BRACELET FORMER 50 mg midazolam (VERSED) injection Intravenous, PRN, Starting on Thu09/19/19 at 0759, Until Thu09/19/19 at 0939, Anesthesia Intra-op $ Given 09/19/2019 7:59 AM BRACELET FORMER 2 mg Ondansetron HCl (ZOFRAN) injection PRN, Starting on Thu09/19/19 at 0914, Until Thu09/19/19 at 0939, Anesthesia Intra-op $ Given 09/19/2019 9:14 AM BRACELET FORMER 4 mg propofol (DIPRIVAN) injection PRN, Starting on Thu09/19/19 at 0807, Until Thu09/19/19 at 0939, Anesthesia Intra-op $ Given 09/19/2019 8:07 AM BRACELET FORMER 150 mg rocuronium (ZEMURON) injection Intravenous, PRN, Starting on Thu09/19/19 at 0807, Until Thu09/19/19 at 0939, Anesthesia Intra-op $ Given 09/19/2019 8:52 AM BRACELET FORMER 10 mg $ Given 09/19/2019 8:07 AM BRACELET FORMER 40 mg sugammadex (BRIDION) injection PRN, Starting on Thu09/19/19 at 0927, Until Thu09/19/19 at 0939, Anesthesia Intra-op $ Given 09/19/2019 9:27 AM BRACELET FORMER 200 mg documented in this encounter Care Teams Supervising Editor Trailer Relationship Specialty Start Date End Date Laura Reid MD PCP - General Pediatrics 07/06/15 10/27/19 documented as of this encounter
--- OUTSIDE RECORDS SUMMARY | 2024-08-30 03:00 | XMS_ITS | Encounter Summary ---
Author Organization [facility] Address [address] [place] [address] Care Team Providers Care Fan Engine Engineer Name Role Phone Laura Reid MD Primary Care Provider [phone] Reason for Visit * Reason Onset Date Comments Results 09/23/2015 Encounter Details Date Type Department Care Team (Late st Contact Info) Description 09/23/2015 Telephone [facility] Sleep Services [address] , [address] [place] [id number] Moody Cotter MD [address] [place] [address] Results Social History Tobacco Use Types Packs/Day Years Used Date Smoking Tobacco: Never Alcohol Use Standard Drinks/Week Comments No 0 (1 standard drink = 0.6 oz pur e alcohol) Sex and Gender Information Value Date Recorded Sex Assigned at Not on file Gender Identity Not on file Sexual Orientation Not on file documented as of this encounter Miscellaneous Notes * Telephone Encounter - Caren Hdz RN - 09/24/2015 10:25 AM CST Mom called and sleep study results were given. She will continue ferrous sulfate and vitamin D. Also aware that a long acting stimulant may be needed and would like to discuss that further at her visit on 10/31. Will also continue treatment for depression. RANCE EXAMINER * Telephone Encounter - Caren Hdz RN - 09/24/2015 10:01 AM CST Left message to return call for sleep study results. RANCE EXAMINER * Telephone Encounter - Moody Cotter MD - 09/23/2015 3:09 PM CST Nurses pool please call the caregiver and tell them the below results. Please also close this note when you are done. Her diag psg and MSLT were overall within normal limits. She had some fragmented sleep overnight and showed sleepiness during the daytime study, but did notmeet criteria for sleep disorder. Per her psychiatrist instruction if she has not already I would have her restart her anti-depressant F/u in clinic as scheduled. SUMMARY RDI Min SaO2 1.9 97% AHI: 1.9 Obstructive AHI: 1.7 RECOMMENDATIONS: The patient is seen in the pediatric sleep clinic. We will contact the caregiver and discuss the results. I will recommend that patient continue treatment of her depression. We will also recommend continued optimization of her iron and vitamin D stores which might improve her excessive sleepiness. If her symptoms have not improved by her follow-up in the pediatric sleep clinic by 11/01/15 we couldconsider a long-acting stimulant such as Concerta qam. RANCE EXAMINER documented in this encounter Plan of Treatment Not on file documented as of this encounter Visit Diagnoses Not on filedocumented in this encounter Care Teams Fan Engine Engineer Relationship Specialty Start Date End Date Laura Reid MD PCP - General Pediatrics 07/06/15 10/27/19 documented as of this encounter
--- OUTSIDE RECORDS SUMMARY | 2024-08-30 03:00 | XMS_ITS | Encounter Summary ---
Author Organization [facility] Address [address] [place] [address] Care Team Providers Care Scrap Kettle Tender Name Role Phone Laura Reid MD Primary Care Provider [phone] Reason for Visit * Reason Onset Date Comments Surgery Rescheduled 07/27/2019 Surgery Verification 07/27/2019 Encounter Details Date Type Department Care Team (Late st Contact Info) Description 07/27/2019 Telephone [facility] [address] [place] [address] Albert Huddleston MD [address] [place] [phone] Surgery Rescheduled; Surgery Verification Social History Tobacco Use Types Packs/Day Years Used Date Smoking Tobacco: Every Day Smokeless Tobacco: Never Alcohol Use Standard Drinks/Week Comments No 0 (1 standard drink = 0.6 oz pur e alcohol) Sex and Gender Information Value Date Recorded Sex Assigned at Not on file Gender Identity Not on file Sexual Orientation Not on file documented as of this encounter Miscellaneous Notes * Telephone Encounter - Akosua Pardo - 07/27/2019 5:00 PM CST Pt called in stating that she would like to [facility] surgery until after the holidays. Pt accepts next available and denies further needs. SAFETY MANAGER * Telephone Encounter - Akosua Pardo - 07/27/2019 8:54 AM CST Contacted pt to f/u @ surgery date change per OR, lm for pt to contact me. SAFETY MANAGER documented in this encounter Plan of Treatment Not on file documented as of this encounter Visit Diagnoses Not on filedocumented in this encounter Care Teams Scrap Kettle Tender Relationship Specialty Start Date End Date Laura Reid MD PCP - General Pediatrics 07/06/15 10/27/19 documented as of this encounter
--- OUTSIDE RECORDS SUMMARY | 2024-08-30 03:00 | XMS_ITS | Encounter Summary ---
Author Organization [facility] Address [address] [facility] [place] [address] Care Team Providers Care Hair Or Beauty Salon Assistant Name Role Phone Laura Reid MD Primary Care Provider [phone] Reason for Referral * Sleep - Closed Specialty Diagnoses / Procedures Referred By Kaleigh belle Referred To Contact Diagnoses Excessive sleepiness Procedures POLYSOMNOGRAM W/MULTIPLE SLEEP LATENCY TEST Moody Cotter MD [address] [place] [address] [facility] [place] [address] [place] [phone] Referral ID Status Reason Start Date Expiration Date Visits Re quested Visits Authorized [id number] Closed 08/15/2015 11/12/2015 1 1 INIST HELPER MARINE Reason for Visit * Sleep - Closed Specialty Diagnoses / Procedures Referred By Kaleigh belle Referred To Contact Diagnoses Excessive sleepiness Procedures POLYSOMNOGRAM W/MULTIPLE SLEEP LATENCY TEST Moody Cotter MD [address] [place] [address] [facility] [address] [place] [address] Referral ID Status Reason Start Date Expiration Date Visits Re quested Visits Authorized [id number] Closed 08/15/2015 11/12/2015 1 1 Encounter Details Date Type Department Care Team (Latest Contact Info) Description 09/12/2015 7:30 PM MACHINIST HELPER MARINE - 09/12/2015 11:59 PM [facility] Hospital Encounter [facility] - Sleep Services [address] [place] [address] Moody Cotter MD [address] [facility] [address] [place] [address] Discharge Disposition: Home or Self Care Social History Tobacco Use Types Packs/Day Years Used Date Smoking Tobacco: Never Alcohol Use Standard Drinks/Week Comments No 0 (1 standard drink = 0.6 oz pur e alcohol) Sex and Gender Information Value Date Recorded Sex Assigned at Not on file Gender Identity Not on file Sexual Orientation Not on file documented as of this encounter Medications at Time of Discharge Medication Sig Dispensed Refills Start Date End Date drospirenone-ethinyl estradiol (VESTURA) 3-0.02 MG tablet Take 1 Tab by mouth once daily 09/19/2019 ferrous sulfate 325 (65 FE) MG tablet Take 1 Tab by mouth 2 times daily Take with vitamin C source such as OJ. Miralax for constipation. 60 Tab 3 09/01/2015 01/03/2016 fludrocortisone (FLORINEF) 0.1 MG tabletIndications:syncop e Take 1 Tab by mouth once daily Reasons: syncope 30 Tab 5 07/06/2015 01/03/2016 FLUoxetine (PROZAC) 20 MG capsule Take 60 mg by mouth once daily 01/03/2016 polyethylene glycol 3350 (MIRALAX) powder 1/2 capful as needed for constipation, may increase 1/4 capful as needed with a max of 1 capful 255 g 2 09/01/2015 01/03/2016 Pseudoephedrine HCl (SUDAFED 24 HOUR PO) Take 1 Tab by mouth once daily as needed 09/19/2019 vitamin D3 (CHOLECACIFEROL) 5000 UNITS Take 1 Tab by mouth once daily 30 Tab 3 09/01/2015 02/08/2016 documented as of this encounter Plan of Treatment Not on file documented as of this encounter Procedures Procedure Name Priority Date/Time Associated Diagnosis Comments REDUCED MULTIPLE SLEEP LATENCY TEST Routine 09/12/2015 Excessive sleepiness documented in this encounter Results * POLYSOMNOGRAM W/MULTIPLE SLEEP LATENCY TEST (09/12/2015) Linked Results See Linked Results SLEEP CENTER 09/12/2015 [place] Kevyn Cotter MD [facility] documented in this encounter Visit Diagnoses Diagnosis Excessive sleepiness Hypersomnia, unspecified documented in this encounter Care Teams Hair Or Beauty Salon Assistant Relationship Specialty Start Date End Date Laura Reid MD PCP - General Pediatrics 07/06/15 10/27/19 documented as of this encounter
--- OUTSIDE RECORDS SUMMARY | 2024-08-30 03:00 | XMS_ITS | Encounter Summary ---
Author Organization [facility] Address [address] [facility] [place] [address] Care Team Providers Care Shipwright Supervisor Name Role Phone Laura Reid MD Primary Care Provider Reason for Visit * Reason Onset Date Comments Surgery Rescheduled 07/20/2019 Encounter Details Date Type Department Care Team (Late st Contact Info) Description 07/20/2019 Telephone [facility] [address] [place] [address] Albert Huddleston MD [address] [place] [phone] Surgery Rescheduled Social History Tobacco Use Types Packs/Day Years [...] * Telephone Encounter - Akosua Pardo - 07/20/2019 10:10 AM CST Contacted pt to [facility] surgery per OR, lm for pt to contact me. OR LIVING SALES COUNSELOR documented in this encounter Plan of Treatment Not on file documented as of this encounter Visit Diagnoses Not on filedocumented in this encounter Care Teams Shipwright Supervisor Relationship Specialty Start Date End Date Laura Reid MD PCP - General Pediatrics 07/06/15 10/27/19 documented as of this encounter
--- OUTSIDE RECORDS SUMMARY | 2024-08-30 03:00 | XMS_ITS | Encounter Summary ---
Author Organization [facility] Address [address] [place] [address] Care Team Providers Care Solidworks Designer Name Role Phone Laura Reid MD Primary Care Provider Unava ilable Reason for Referral * Radiology Services (Routine) - Pending Review Specialty Diagnoses / Procedures Referred By Contac t Referred To Contact Diagnoses Encounter for ultrasound to assess anatomy and growth in twin , antepartum [place] Procedures US OB FOLLOW UP PER FETUS Chata Figueroa MD [address] [place] [phone] [facility] [place] [address] [place] [phone] Referral ID Status Reason Start Date Expiration Date V isits Requested Visits Authorized [id number] Pending Review 07/07/2024 08/07/2025 1 1 S CUTTER Reason for Visit * Radiology Services (Routine) - Pending Review Specialty Diagnoses / Procedures Referred By Contac t Referred To Contact Diagnoses Encounter for ultrasound to assess anatomy and growth in twin , antepartum [place] Procedures US OB FOLLOW UP PER FETUS Chata Figueroa MD [address] [place] [phone] [facility] [place] [address] [place] [phone] Referral ID Status Reason Start Date Expiration Date V isits Requested Visits Authorized [id number] Pending Review 07/07/2024 08/07/2025 1 1 Encounter Details Date Type Department Care Team (Late st Contact Info) Description 07/28/2024 9:58 AM DRESS CUTTER - 07/28/2024 11:59 PM DRESS CUTTER Hospital Encounter [facility] Maternal and Health [facility] [address] [place] [address] Chata Wiley MD [address] [place] [address] Discharge Disposition: Home or Self Care Social History Tobacco Use Types Packs/Day Years Used Date Smoking Tobacco: Never Assessed Sex and Gender Information Value Date Recorded Sex Assigned at Not on file Gender Identity Not on file Sexual Orientation Not on file documented as of this encounter Medications at Time of Discharge Medication Sig Dispensed Refills Start Date End Date hydrOXYzine pamoate (VISTARIL) 50 mg capsule Take 50 mg by mouth 2 times daily. 11/01/2016 ARIPiprazole (ABILIFY) 5 mg tablet Take 40 mg by mouth 2 times daily. 04/03/2017 lamoTRIgine (LaMICtal) 150 mg tablet Take 300 mg by mouth 2 times daily. 04/03/2017 citalopram (CeleXA) 20 mg tablet Take 40 mg by mouth 2 times daily. 04/09/2017 documented as of this encounter Plan of Treatment Not on file documented as of this encounter Procedures Procedure Name Priority Date/Time Associated Diagnosis Comments US OB FOLLOW UP PER FETUS Routine 07/28/2024 10:30 AM DRESS CUTTER Encounter for ultrasound to assess anatomy and growth in twin , antepartum documented in this encounter Results * US OB FOLLOW UP PER FETUS (07/28/2024 10:30 AM DRESS CUTTER) Anatomical Region Laterality Modality Pelvis Ultrasound 07/28/2024 10:1 2 AM DRESS CUTTER Narrative 07/28/2024 11:07 AM DRESS CUTTER STL FOLLOW UP ----- Pat. Name: MARGAUX AREVALO Study Date: 07/28/2024 10:12am Pat. NO: [id number] Referring ??MD: CHATA WILEY MD Site: [facility] [employer] Drafting Officer: Lolis Bear RDMS : 2000 Age: 24 ----- INDICATION ----- Screening Follow-Up Family History of Congenital Heart Defect, ? MOB brother Suspected in Fetus Tobacco Use Complicating , Cigarettes History Marijuana use in CODING ----- Diagnoses ? Z3A.33: Weeks of gestation ?O99.321-099: History Marijuana use in ?O99.333: Tobacco use disorder complicating ?O35.2XX0: Maternal care for (suspected) hereditary disease in fetus ?Z36.3: Encounter for screening for malformations ?Z3A.33: Weeks of gestation ?O99.333: Tobacco use disorder complicating ?O35.2XX0: Maternal care for (suspected) hereditary disease in fetus ?Z36.2: Encounter for other screening follow-up Procedures ?54674: Ultrasound, uterus, real time with image documentation, follow up, transabdominal ?approach per fetus HISTORY ----- OB History ? 4 ?Miscarriages 3 ?A3 MATERNAL ASSESSMENT ----- Physical Exam ? Weight 79 kg. BMI 32.01 kg/m?? METHOD ----- Transabdominal ultrasound examination ----- Us . Number of fetuses: 1 DATING ----- GA by prior assessment 33 w + 1 d ELIZABETH by prior assessment: 09/14/2024 Ultrasound examination on: 07/28/2024 GA by U/S based upon: AC, BPD, EFW, Femur, HC GA by U/S 32 w + 4 d ELIZABETH by U/S: 09/18/2024 Method of dating: Restore dating from previous exam Assigned: based on stated ELIZABETH, selected on 04/21/2024 Assigned GA 33 w + 1 d Assigned ELIZABETH: 09/14/2024 BIOMETRY ----- BPD ?80.6 ? mm ?32w 3d ?22% ?Hadlock OFD ?101.6 ?mm ?32w 6d ?44% ?Melinda HC ? 290.8 ?mm ?32w 0d ?3% ?Hadlock AC ? 283.8 ?mm ?32w 3d ?30% ?Hadlock Femur ?65.0 ? mm ?33w 4d ?49% ?Hadlock HC / AC ?1.02 ? 32% ?Nicolaides Weight Calculation: EFW ? 2,030 ? g ? 32w 3d ?29% ?Hadlock EFW (lb,oz) ? 4 lb 8 ?oz EFW by ?Hadlock ([id number]) Extremities / Bony Struc Biometry: FL / BPD ?0.81 FL / HC ? 0.22 FL / AC ? 0.23 GENERAL EVALUATION ----- Cardiac activity present. FHR 160 bpm. movements: present. Presentation: breech Placenta: Placental site: left lateral Umbilical cord: Cord vessels: 3 vessel cord Amniotic fluid: Amount of AF: normal amount. MVP 3.5 cm. CLAUDIA 10.8 cm. Q1 3.5 cm, Q2 2.6 cm, Q3 2.7 cm, Q4 2.2 cm ANATOMY ----- The following structures appear normal: Head / Neck ? Cranium. Lateral ventricles. Choroid plexus. Midline falx. Cavum septi pellucidi. Cerebellum. Cisterna ?magna. Heart / Thorax ?4-chamber view. RVOT view. LVOT view. ?Diaphragm. Abdomen ? Stomach. Kidneys. Bladder. GROWTH OVERVIEW ----- Exam date ? GA ?BPD (mm) ? HC (mm) ?AC (mm) ? FL (mm) ?HL (mm) ?EFW (g) 04/21/2024 ?19w 1d ?43.9 ?57% ?160.6 ? 30% ?143.5 ?64% ?31.7 ?69% ?28.8 ?58% ?306 ? 75% 05/30/2024 ? 24w 5d ?59.4 ?26% ?219.9 ? 11% ?208.9 ?64% ?46.4 ?60% ? 785 ? 63% 07/28/2024 ? 33w 1d ?80.6 ?22% ?290.8 ? 3% ? 283.8 ?30% ?65.0 ?49% ? 2,030 ? 29% COMMENT ----- Patient's name and date of were verified by the product delivery specialist prior to the exam IMPRESSION ----- 1. Single living fetus with a gestational age of 33w 1d, based on the reported clinical dates. 2. Current growth parameters are consistent with the stated EDC. The size is appropriate for gestational age at 29% percentile (2030 g). 3. Unremarkable limited anatomy noted. A detailed anatomy cannot be performed secondary to advanced gestational age. However, there are no gross structural abnormalities noted. 4. The amniotic fluid is normal for gestational age (MVP:3.5 cm , CLAUDIA:10.8 cm ). 5. Left lateral placenta. No previa/not low-lying. 6. Breech presentation. Recommendations: - Further imaging as indicated. Thank you for allowing us to participate in the care of this patient. Procedure Note Chandrika Perdomo MD - 07/28/2024 STL FOLLOW UP ----- Kaity. Name:Kellee AREVALO Date:07/28/2024 10:12am Pat. NO: [id number] MD:CHATA WILEY [facility]Lolis Bear RDMS :2000Age:24 ----- INDICATION ----- Screening Follow-Up Family History of Congenital Heart Defect, MOB brother Suspected in Fetus Tobacco Use Complicating , Cigarettes History Marijuana use in CODING ----- Diagnoses Z3A.33: Weeks of gestation O99.321-099: History Marijuana use in O99.333: Tobacco use disorder complicatingpregnancy O35.2XX0: Maternal care for (suspected) hereditarydisease in fetus Z36.3: Encounter for screening formalformations Z3A.33: Weeks of gestation O99.333: Tobacco use disorder complicatingpregnancy O35.2XX0: Maternal care for (suspected) hereditarydisease in fetus Z36.2: Encounter for other screeningfollow-up Procedures 21393: Ultrasound, uterus, real time withimage documentation, follow up, transabdominal approach per fetus HISTORY ----- OB History 4 Miscarriages 3 A3 MATERNAL ASSESSMENT ----- Physical Exam Weight 79 kg. BMI 32.01 kg/m?? METHOD ----- Transabdominal ultrasound examination ----- Us . Number of fetuses: 1 DATING ----- GA by prior [id number] w + 1 d ELIZABETH by prior assessment:09/14/2024 Ultrasound examination on:07/28/2024 GA by U/S based upon:AC, BPD, EFW, Femur, HC GA by U/S32 w + 4 d ELIZABETH by U/S:09/18/2024 Method of dating:Restore dating from previous exam Assigned:based on stated ELIZABETH, selected on 04/21/2024 Assigned GA33 w + 1 d Assigned ELIZABETH:09/14/2024 BIOMETRY ----- BPD 80.6 mm 32w 3d 22%Hadlock OFD 101.6 mm 32w 6d 44%Melinda HC 290.8 mm 32w 0d 3%Hadlock AC 283.8 mm 32w 3d 30%Hadlock Femur 65.0 mm 33w 4d 49%Hadlock HC / AC 1.02 32%Nicolaides Weight Calculation: EFW 2,030 g 32w 3d29% Hadlock EFW (lb,oz) 4 lb 8 oz EFW by Hadlock ([id number]) Extremities / Bony Struc Biometry: FL / BPD 0.81 FL / HC 0.22 FL / AC 0.23 GENERAL EVALUATION ----- Cardiac activity present. FHR 160 bpm. movements: present.Presentation: breech Placenta: Placental site: left lateral Umbilical cord: Cord vessels: 3 vessel cord Amniotic fluid: Amount of AF: normal amount. MVP 3.5 cm. CLAUDIA 10.8 cm. Q13.5 cm, Q2 2.6 cm, Q3 2.7 cm, Q4 2.2 cm ANATOMY ----- The following structures appear normal: Head / Neck Cranium. Lateral ventricles. Choroid plexus.Midline falx. Cavum septi pellucidi. Cerebellum. Cisterna magna. Heart / Thorax 4-chamber view. RVOT view. LVOT view. Diaphragm. Abdomen Stomach. Kidneys. Bladder. GROWTH OVERVIEW ----- Exam date GA BPD (mm) HC (mm) AC (mm) FL(mm) HL (mm) EFW (g) 04/21/2024 19w 1d 43.9 57% 160.6 30% 143.5 64%31.7 69% 28.8 58% 306 75% 05/30/2024 24w 5d 59.4 26% 219.9 11% 208.9 64%46.4 60% 785 63% 07/28/2024 33w 1d 80.6 22% 290.8 3% 283.8 30%65.0 49% 2,030 29% COMMENT ----- Patient's name and date of were verified by the product delivery specialist prior tothe exam IMPRESSION ----- 1. Single living fetus with a gestational age of 33w 1d, based on thereported clinical dates. 2. Current growth parameters are consistent with the stated EDC. The fetalsize is appropriate for gestational age at 29% percentile (2030 g). 3. Unremarkable limited anatomy noted. A detailed anatomycannot be performed secondary to advanced gestational age. However, there are no gross structural abnormalities noted. 4. The amniotic fluid is normal for gestational age (MVP:3.5 cm , CLAUDIA:10.8cm ). 5. Left lateral placenta. No previa/not low-lying. 6. Breech presentation. Recommendations: - Further imaging as indicated. Thank you for allowing us to participate in the care of this patient. Chata Wiley MD US ORDERABLES documented in this encounter Visit Diagnoses Diagnosis Encounter for ultrasound to assess anatomy and growth in twin , antepartum documented in this encounter Care Teams Solidworks Designer Relationship Specialty Start Date End Date Laura Reid MD PCP - General Pediatrics 07/02/17 documented as of this encounter
--- OUTSIDE RECORDS SUMMARY | 2024-08-30 03:00 | XMS_ITS | Clinical Summary ---
Author Organization [facility] Address [address] [place] [address] Phone Care Team Providers Care Dye House Vat Worker Name Role Phone Laura Reid MD Primary Care Provider Hina maradiaga Medications Medication Sig Dispensed Refills Start Date End Date Status hydrOXYzine pamoate (VISTARIL) 50 mg capsule Take 50 mg by mouth 2 times daily. 11/01/2016 Active ARIPiprazole (ABILIFY) 5 mg tablet Take 40 mg by mouth 2 times daily. 04/03/2017 Active lamoTRIgine (LaMICtal) 150 mg tablet Take 300 mg by mouth 2 times daily. 04/03/2017 Active citalopram (CeleXA) 20 mg tablet Take 40 mg by mouth 2 times daily. 04/09/2017 Active Active Problems Problem Noted Date Diagnosed Date Excessive sleepiness 09/23/2015 Overview (07/02/2017): Overview: Formatting of this note may be different from the original. Neg diag psg and MSLT 09/12/15 SUMMARY RDI Min SaO2 1.9 97% AHI: 1.9 Obstructive AHI: 1.7 Mean sleep latency: 13.5 min No SOREMS Low iron stores 09/01/2015 Vitamin D deficiency 09/01/2015 Syncope 07/06/2015 Encounters Date Type Department Care Team Description 07/28/2024 9:58 AM INTEGRATION MANAGER - 07/28/2024 11:59 PM INTEGRATION MANAGER Hospital Encounter [facility] Maternal and Health [facility] [address] [place] [address] Chata Wiley MD Discharge Disposition: Home or Self Care 05/31/2024 External Device Data STL ABSTRACTION Provider, Abstract 05/30/2024 12:54 PM CDT - 05/30/2024 11:59 PM CDT Hospital Encounter [facility] Maternal and [facility] [address] [place] [address] Chata Wiley MD Discharge Disposition: Home or Self Care 05/30/2024 12:45 PM CDT - 05/30/2024 11:59 PM CDT Hospital Encounter [facility] [address] [place] [address] Chata Wiley MD Discharge Disposition: Home or Self Care from Last 3 Months Social History Tobacco Use Types Packs/Day Years Used Date Smoking Tobacco: Never Assessed Sex and Gender Information Value Date Recorded Sex Assigned at Not on file Gender Identity Not on file Sexual Orientation Not on file Last Filed Vital Signs Vital Sign Reading Time Taken Comments Blood Pressure 102/81 07/02/2017 11:04 AM INTEGRATION MANAGER Pulse - - Temperature - - Respiratory Rate - - Oxygen Saturation - - Inhaled Oxygen Concentration - - Weight 76.2 kg (168 lb) 07/02/2017 11:04 AM INTEGRATION MANAGER Height 157.5 cm (5' 2 ) 07/02/2017 11:04 AM INTEGRATION MANAGER Body Mass Index 30.73 07/02/2017 11:04 AM INTEGRATION MANAGER Plan of Treatment Health Maintenance Due Date Last Done Comments HPV VACCINES (1 - 3-dose series) 2013 HEPATITIS B VACCINES (1 of 3 - 19+ 3-dose series) 2017 CERVICAL CANCER SCREENING 2019 INFLUENZA VACCINE (#1) 2024 2, 08/13/2020 COVID-19 Vaccine (2 - 2023-2 5 season) 2024 11/27/2020 DTAP/TDAP/TD VACCINES (2 - T d or Tdap) 02/11/2031 02/11/2021 PNEUMOCOCCAL VACCINE 0-64 YEARS Aged Out No longer eligible b ased on patient's age to complete this topic Procedures Procedure Name Priority Date/Time Associated Diagnosis Comments US OB FOLLOW UP PER FETUS Routine 07/28/2024 10:30 AM INTEGRATION MANAGER Encounter for ultrasound to assess anatomy and growth in twin , antepartum ECHO 2D + COLOR FLOW VELOCITY Routine 05/30/2024 2:25 PM CDT Encounter for screening for malformation Family history of congenital heart defect US OB FOLLOW UP PER FETUS Routine 05/30/2024 2:25 PM CDT Encounter for screening for malformation Family history of congenital heart defect from Last 3 Months Results * US OB FOLLOW UP PER FETUS (07/28/2024 10:30 AM INTEGRATION MANAGER) Only the most recent of2 resultswithin the time period is included. Anatomical Region Laterality Modality Pelvis Ultrasound 07/28/2024 10:1 2 AM INTEGRATION MANAGER Narrative 07/28/2024 11:07 AM INTEGRATION MANAGER STL FOLLOW UP ----- Pat. Name: MARGAUX AREVALO Study Date: 07/28/2024 10:12am Pat. NO: [id number] Referring ??MD: CHATA WILEY MD Site: [place] Inspector Wreath: Lolis Bear RDMS : 2000 Age: 24 [...] ?Z36.2: Encounter for other screening follow-up Procedures ?[id number]: Ultrasound, uterus, real time with image documentation, [...] 4 lb 8 ?oz EFW by ?Hadlock ([id number]) Extremities / Bony Struc Biometry: FL / [...] and date of were verified by the electric knife operator prior to the exam IMPRESSION ----- 1. [...] MD - 07/28/2024 STL FOLLOW UP ----- Pat. Name:Kellee AREVALO Date:07/28/2024 10:12am Pat. NO: [id number] :CHATA WILEY MD [facility]Lolis Bear RDMS :2000Age:24 ----- INDICATION ----- [...] fetus Z36.2: Encounter for other screeningfollow-up Procedures 40155: Ultrasound, uterus, real time withimage documentation, follow up, transabdominal approach per fetus HISTORY ----- OB History 4 Miscarriages 3 A3 MATERNAL ASSESSMENT ----- Physical Exam Weight 79 kg. BMI 32.01 kg/m?? METHOD ----- Transabdominal ultrasound examination ----- Us . Number of fetuses: 1 DATING ----- GA by prior [id number] w + 1 d ELIZABETH by prior [...] 4 lb 8 oz EFW by Hadlock ([id number]) Extremities / Bony Struc Biometry: FL / [...] and date of were verified by the electric knife operator prior tothe exam IMPRESSION ----- 1. Single [...] this patient. Chata Wiley MD US ORDERABLES * ECHO 2D + COLOR FLOW VELOCITY (05/30/2024 2:25 PM CDT) Narrative 05/30/2024 2:25 PM CDT Order information only. ??Exam was auto-finalized. ?? Chata Wiley MD US ORDERABLES from Last 3 Months Care Teams Dye House Vat Worker Relationship Specialty Start Date End Date Laura Reid MD PCP - General Pediatrics 07/02/17
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
--- OUTSIDE RECORDS SUMMARY | 2024-08-30 03:00 | XMS_ITS | Encounter Summary ---
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 CDT 11/08/2019 3:49 AM CDT Sam Spencer MULLINS LAB - CHEMISTRY ANGELA JONES Performing Organization Address [facility]/ZIP Co de Phone Number [address] [phone] * (ABNORMAL) CBC W/O DIFFERENTIAL (11/08/2019 3:45 AM CDT) [facility] WBC 19.3(H) 3.5 - 10.5 10? 3 /uL 11/08/2019 3:55 AM [facility] RBC 3.01(L) 3.90 - 5.00 10? 6 /uL 11/08/2019 3:55 AM [facility] Hemoglobin 9.4(L) 12.0 - 15.5 g/dL 11/08/2019 3:55 AM [facility] Hematocrit 28.4(L) 35.0 - 45.0 % 11/08/2019 3:55 AM [facility] MCV 94.4 81.0 - 97.0 fL 11/08/2019 3:55 AM T [facility] MCH 31.2 28.0 - 34.0 pg 11/08/2019 3:55 AM T [facility] MCHC 33.1 32.0 - 36.0 g/dL 11/08/2019 3:55 AM [facility] Platelet Count 691(H) 150 - 400 10? 3 /uL 11/08/2019 3:55 AM T [facility] RDW-SD 53.4(H) 36.0 - 50.0 fL 11/08/2019 3:55 AM CDT [facility] RDW-CV 15.6(H) 11.2 - 14.8 % 11/08/2019 3:55 AM T [facility] MPV 9.2(L) 9.3 - 12.8 fL 11/08/2019 3:55 AM [facility] nRBC Absolute 0.00 0 10? 3 /uL 11/08/2019 3:55 AM T [facility] nRBC Auto 0.0 0 /100 WBC 11/08/2019 3:55 AM T [facility] Blood BLOOD SPECIMEN / Unknown Venipuncture / Unknown 11/08/2019 3:45 AM CDT 11/08/2019 3:49 AM CDT Sam Palmer DO LAB - HEMATOLOGY ORD ERABLES [facility] [address] [place] [address] * (ABNORMAL) BASIC METABOLIC PANEL (CALCIUM TOTAL) (11/08/2019 3:45 AM CDT) BUN 12 7 - 26 mg/dL 11/08/2019 4:20 AM [facility] Creatinine 0.7 0.6 - 1.2 mg/dL 11/08/2019 4:20 AM [facility] Sodium 135(L) 136 - 145 mmol/L 11/08/2019 4:20 AM [facility] Potassium 4.1 3.5 - 4.5 mmol/L 11/08/2019 4:20 AM [facility] Chloride 101 98 - 107 mmol/L 11/08/2019 4:20 AM [facility] CO2 23 22 - 29 mmol/L 11/08/2019 4:20 AM [facility] Glucose 104 70 - 115 mg/dL 11/08/2019 4:20 AM [facility] Calcium 9.6 8.4 - 10.2 mg/dL 11/08/2019 4:20 AM [facility] Anion Gap 15 8 - 18 11/08/2019 4:20 AM [facility] BUN/Creatinine Ratio 17 7 - 23 11/08/2019 4:20 AM CDT [facility] Osmolality Calculated 280 270 - 300 mOsm/kg 11/08/2019 4:20 AM CDT [facility] eGFR >60 >60 mL/min/1.7 3 m2 11/08/2019 4:20 AM CDT [facility] Blood BLOOD SPECIMEN / Unknown Venipuncture / Unknown 11/08/2019 3:45 AM CDT 11/08/2019 3:49 AM CDT Sam Palmer DO LAB - CHEMISTRY ANGELA JONES [facility] [address] [place] [address], [facility] [phone] * C DIFFICILE GD AG + TOXIN A+B (11/07/2019 2:52 PM CDT) GDH Antigen Negative Negative, Invalid 11/07/2019 10:03 PM CDT [facility] C difficile Toxin A + B Negative Negative, Invalid 11/07/2019 10:03 PM CDT [facility] Interpretation C difficile Negative for toxigenic C. difficile Negative for toxigenic C. difficile 11/07/2019 10:03 PM CDT [facility] Stool STOOL SPECIMEN / Unknown Collection / Unknown 11/07/2019 2:52 PM CDT 11/07/2019 3:00 PM CDT Lolis Layne QUARRY EXTRACTION WORKER-[employer]NATIONAL SALES REPRESENTATIVE LAB - MICROBIOLOG Y ORDERABLES [facility] [address] [place] [address], [facility] [phone] * GLUCOSE - POINT OF CARE (11/07/2019 8:08 AM CDT) Glucose WB/POC 110 70 - 115 mg/dL 11/07/2019 8:18 AM CDT [facility] Specimen Type Arterial/C apillary 11/07/2019 8:18 AM CDT [facility] Blood BLOOD SPECIMEN / Unknown 11/07/2019 8:08 AM CDT 11/07/2019 8:18 AM CDT Sam Landry MD LAB - POINT OF CARE ORDERABLES Performing Organization Address City/[facility]/ZIP Co de Phone Number [address] [phone] * PHOSPHORUS BLOOD (11/07/2019 3:30 AM CDT) Phosphorus 4.0 2.3 - 4.7 mg/dL 11/07/2019 4:41 AM CDT [facility] Blood BLOOD SPECIMEN / Unknown Lab Venipuncture / Unknown 11/07/2019 3:30 AM CDT 11/07/2019 4:05 AM CDT Sam Palmer DO LAB - CHEMISTRY ANGELA JONES Performing Organization Address [facility] Co de Phone Number [address] [phone] * MAGNESIUM BLOOD (11/07/2019 3:30 AM CDT) Magnesium 2.0 1.6 - 2.6 mg/dL 11/07/2019 4:41 AM CDT [facility] Blood BLOOD SPECIMEN / Unknown Lab Venipuncture / Unknown 11/07/2019 3:30 AM CDT 11/07/2019 4:05 AM CDT Sam Palmer DO LAB - CHEMISTRY ANGELA JONES Performing Organization Address [facility]/ZIP Co de Phone Number [address] [phone] * (ABNORMAL) CBC W/O DIFFERENTIAL (11/07/2019 3:30 AM CDT) WBC 21.0(H) 3.5 - 10.5 10? 3 /uL 11/07/2019 4:14 AM CDT [facility] RBC 2.78(L) 3.90 - 5.00 10? 6 /uL 11/07/2019 4:14 AM CDT [facility] Hemoglobin 8.6(L) 12.0 - 15.5 g/dL 11/07/2019 4:14 AM [facility] Hematocrit 26.7(L) 35.0 - 45.0 % 11/07/2019 4:14 AM [facility] MCV 96.0 81.0 - 97.0 fL 11/07/2019 4:14 AM [facility] MCH 30.9 28.0 - 34.0 pg 11/07/2019 4:14 AM [facility] MCHC 32.2 32.0 - 36.0 g/dL 11/07/2019 4:14 AM [facility] Platelet Count 694(H) 150 - 400 10? 3 /uL 11/07/2019 4:14 AM [facility] RDW-SD 53.9(H) 36.0 - 50.0 fL 11/07/2019 4:14 AM [facility] RDW-CV 15.7(H) 11.2 - 14.8 % 11/07/2019 4:14 AM [facility] MPV 9.2(L) 9.3 - 12.8 fL 11/07/2019 4:14 AM [facility] nRBC Absolute 0.00 0 10? 3 /uL 11/07/2019 4:14 AM [facility] nRBC Auto 0.0 0 /100 WBC 11/07/2019 4:14 AM [facility] Blood BLOOD SPECIMEN / Unknown Lab Venipuncture / Unknown 11/07/2019 3:30 AM CDT 11/07/2019 4:08 AM CDT Sam Palmer DO LAB - HEMATOLOGY ORD ERABLES [address] [phone] * (ABNORMAL) BASIC METABOLIC PANEL (CALCIUM TOTAL) (11/07/2019 3:30 AM CDT) BUN 12 7 - 26 mg/dL 11/07/2019 4:41 AM [facility] Creatinine 0.7 0.6 - 1.2 mg/dL 11/07/2019 4:41 AM [facility] Sodium 137 136 - 145 mmol/L 11/07/2019 4:41 AM [facility] Potassium 4.5 3.5 - 4.5 mmol/L 11/07/2019 4:41 AM [facility] Chloride 104 98 - 107 mmol/L 11/07/2019 4:41 AM [facility] CO2 20(L) 22 - 29 mmol/L 11/07/2019 4:41 AM [facility] Glucose 105 70 - 115 mg/dL 11/07/2019 4:41 AM [facility] Calcium 9.1 8.4 - 10.2 mg/dL 11/07/2019 4:41 AM [facility] Anion Gap 18 8 - 18 11/07/2019 4:41 AM [facility] BUN/Creatinine Ratio 17 7 - 23 11/07/2019 4:41 AM [facility] Osmolality Calculated 284 270 - 300 mOsm/kg 11/07/2019 4:41 AM [facility] eGFR >60 >60 mL/min/1.7 3 m2 11/07/2019 4:41 AM [facility] Blood BLOOD SPECIMEN / Unknown Lab Venipuncture / Unknown 11/07/2019 3:30 AM CDT 11/07/2019 4:05 AM CDT Sam Palmer DO LAB - CHEMISTRY ANGELA JONES [address] [phone] * GLUCOSE - POINT OF CARE (11/06/2019 5:39 PM CDT) Glucose WB/POC 111 70 - 115 mg/dL 11/06/2019 5:40 PM T [facility] Specimen Type Arterial/C apillary 11/06/2019 5:40 PM [facility] Blood BLOOD SPECIMEN / Unknown 11/06/2019 5:39 PM CDT 11/06/2019 5:40 PM CDT Sam Landry MD LAB - POINT OF CARE ORDERABLES [address] [phone] * GLUCOSE - POINT OF CARE (11/06/2019 7:49 AM CDT) Glucose WB/POC 105 70 - 115 mg/dL 11/06/2019 7:53 AM CDT [facility] Specimen Type Arterial/C apillary 11/06/2019 7:53 AM CDT [facility] Blood BLOOD SPECIMEN / Unknown 11/06/2019 7:49 AM CDT 11/06/2019 7:53 AM CDT Sam Landry MD LAB - POINT OF CARE ORDERABLES Performing Organization Address [facility]/ZIP Co de Phone Number [address] [phone] * PHOSPHORUS BLOOD (11/06/2019 2:19 AM CDT) Phosphorus 3.5 2.3 - 4.7 mg/dL 11/06/2019 3:22 AM CDT [facility] Blood BLOOD SPECIMEN / Unknown Lab Venipuncture / Unknown 11/06/2019 2:19 AM CDT 11/06/2019 3:02 AM CDT Sam Palmer DO LAB - CHEMISTRY ORDE ROBERT Performing Organization Address City/[facility]/ZIP Co de Phone Number [address] [phone] * MAGNESIUM BLOOD (11/06/2019 2:19 AM CDT) Magnesium 2.0 1.6 - 2.6 mg/dL 11/06/2019 3:22 AM CDT [facility] Blood BLOOD SPECIMEN / Unknown Lab Venipuncture / Unknown 11/06/2019 2:19 AM CDT 11/06/2019 3:02 AM CDT Sam Palmer DO LAB - CHEMISTRY ORDCinthia JONES [place] [id number] [address] [phone] * (ABNORMAL) CBC W/O DIFFERENTIAL (11/06/2019 2:19 AM T) WBC 22.4(H) 3.5 - 10.5 10? 3 /uL 11/06/2019 3:07 AM [facility] RBC 2.70(L) 3.90 - 5.00 10? 6 /uL 11/06/2019 3:07 AM [facility] Hemoglobin 8.3(L) 12.0 - 15.5 g/dL 11/06/2019 3:07 AM [facility] Hematocrit 26.0(L) 35.0 - 45.0 % 11/06/2019 3:07 AM [facility] MCV 96.3 81.0 - 97.0 fL 11/06/2019 3:07 AM [facility] MCH 30.7 28.0 - 34.0 pg 11/06/2019 3:07 AM [facility] MCHC 31.9(L) 32.0 - 36.0 g/dL 11/06/2019 3:07 AM [facility] Platelet Count 610(H) 150 - 400 10? 3 /uL 11/06/2019 3:07 AM [facility] RDW-SD 51.1(H) 36.0 - 50.0 fL 11/06/2019 3:07 AM [facility] RDW-CV 15.6(H) 11.2 - 14.8 % 11/06/2019 3:07 AM [facility] MPV 9.6 9.3 - 12.8 fL 11/06/2019 3:07 AM [facility] nRBC Absolute 0.00 0 10? 3 /uL 11/06/2019 3:07 AM [facility] nRBC Auto 0.0 0 /100 WBC 11/06/2019 3:07 AM [facility] Blood BLOOD SPECIMEN / Unknown Lab Venipuncture / Unknown 11/06/2019 2:19 AM CDT 11/06/2019 3:02 AM CDT Sam Palmer DO LAB - HEMATOLOGY ORD ERABLES Performing Organization Address City/[facility]/ZIP Co de Phone Number [facility] [address] [phone] * (ABNORMAL) BASIC METABOLIC PANEL (CALCIUM TOTAL) (11/06/2019 2:19 AM CDT) BUN 12 7 - 26 mg/dL 11/06/2019 3:22 AM [facility] Creatinine 0.7 0.6 - 1.2 mg/dL 11/06/2019 3:22 AM [facility] Sodium 136 136 - 145 mmol/L 11/06/2019 3:22 AM [facility] Potassium 4.3 3.5 - 4.5 mmol/L 11/06/2019 3:22 AM [facility] Chloride 104 98 - 107 mmol/L 11/06/2019 3:22 AM [facility] CO2 21(L) 22 - 29 mmol/L 11/06/2019 3:22 AM [facility] Glucose 112 70 - 115 mg/dL 11/06/2019 3:22 AM [facility] Calcium 8.8 8.4 - 10.2 mg/dL 11/06/2019 3:22 AM [facility] Anion Gap 15 8 - 18 11/06/2019 3:22 AM [facility] BUN/Creatinine Ratio 17 7 - 23 11/06/2019 3:22 AM [facility] Osmolality Calculated 283 270 - 300 mOsm/kg 11/06/2019 3:22 AM [facility] eGFR >60 >60 mL/min/1.7 3 m2 11/06/2019 3:22 AM [facility] Blood BLOOD SPECIMEN / Unknown Lab Venipuncture / Unknown 11/06/2019 2:19 AM CDT 11/06/2019 3:02 AM CDT Sam Palmer DO LAB - CHEMISTRY ORDE RABLES [facility] [address] [place] [address] * GLUCOSE - POINT OF CARE (11/05/2019 8:22 PM CDT) Glucose WB/POC 97 70 - 115 mg/dL 11/05/2019 8:23 PM CDT [facility] Specimen Type Arterial/C apillary 11/05/2019 8:23 PM CDT [facility] Blood BLOOD SPECIMEN / Unknown 11/05/2019 8:22 PM CDT 11/05/2019 8:23 PM CDT Sam Landry MD LAB - POINT OF CARE ORDERABLES [facility] [address] [place] [address], [facility] [phone] * (ABNORMAL) GLUCOSE - POINT OF CARE (11/05/2019 2:39 PM CDT) Glucose WB/POC 120(H) 70 - 115 mg/dL 11/05/2019 2:41 PM CDT [facility] Specimen Type Arterial/C apillary 11/05/2019 2:41 PM CDT [facility] Blood BLOOD SPECIMEN / Unknown 11/05/2019 2:39 PM CDT 11/05/2019 2:41 PM CDT Sam Landry MD LAB - POINT OF CARE ORDERABLES [facility] [address] [place] [address] * CT CHEST ABDOMEN PELVIS W CONT [...] Dictated by Pio Hemphill MD (vice president of nursing). I, Dr. JERRELL ONTIVEROS M.D. have personally [...] Dictated by Pio Hemphill MD (vice president of nursing). I, Dr. JERRELL ONTIVEROS M.D. have personally reviewed and interpreted this examination/study. This report was electronically signed by JERRELL ONTIVEROS M.D. on11/05/2019 6:52 PM . Theodora Sheikh MD CT ORDERABLES * (ABNORMAL) GLUCOSE - POINT OF CARE (11/05/2019 6:18 AM CDT) Glucose WB/POC 133(H) 70 - 115 mg/dL 11/05/2019 6:19 AM CDT [facility] Specimen Type Arterial/C apillary 11/05/2019 6:19 AM CDT [facility] Blood BLOOD SPECIMEN / Unknown 11/05/2019 6:18 AM CDT 11/05/2019 6:19 AM CDT Sam Landry MD LAB - POINT OF CARE ORDERABLES Performing Organization Address [facility] Co de Phone Number [address] [phone] * PHOSPHORUS BLOOD (11/05/2019 2:58 AM CDT) Phosphorus 3.6 2.3 - 4.7 mg/dL 11/05/2019 3:42 AM CDT [facility] Blood BLOOD SPECIMEN / Unknown Lab Venipuncture / Unknown 11/05/2019 2:58 AM CDT 11/05/2019 3:15 AM CDT Sam Palmer DO LAB - CHEMISTRY ORDCinthia JONES Performing Organization Address [facility] [place] [address], [facility] [phone] * MAGNESIUM BLOOD (11/05/2019 2:58 AM CDT) Magnesium 2.0 1.6 - 2.6 mg/dL 11/05/2019 3:42 AM CDT [facility] Blood BLOOD SPECIMEN / Unknown Lab Venipuncture / Unknown 11/05/2019 2:58 AM CDT 11/05/2019 3:15 AM CDT Sam Palmer DO LAB - CHEMISTRY ORDE RABFRANDY Performing Organization Address [facility] Co de Phone Number [address] [phone] * (ABNORMAL) CBC W/O DIFFERENTIAL (11/05/2019 2:58 AM CDT) WBC 17.5(H) 3.5 - 10.5 10? 3 /uL 11/05/2019 3:25 AM CDT [facility] RBC 2.61(L) 3.90 - 5.00 10? 6 /uL 11/05/2019 3:25 AM [facility] Hemoglobin 8.0(L) 12.0 - 15.5 g/dL 11/05/2019 3:25 AM [facility] Hematocrit 24.7(L) 35.0 - 45.0 % 11/05/2019 3:25 AM [facility] MCV 94.6 81.0 - 97.0 fL 11/05/2019 3:25 AM [facility] MCH 30.7 28.0 - 34.0 pg 11/05/2019 3:25 AM T [facility] MCHC 32.4 32.0 - 36.0 g/dL 11/05/2019 3:25 AM [facility] Platelet Count 572(H) 150 - 400 10? 3 /uL 11/05/2019 3:25 AM [facility] RDW-SD 48.2 36.0 - 50.0 fL 11/05/2019 3:25 AM [facility] RDW-CV 15.2(H) 11.2 - 14.8 % 11/05/2019 3:25 AM [facility] MPV 9.2(L) 9.3 - 12.8 fL 11/05/2019 3:25 AM [facility] nRBC Absolute 0.00 0 10? 3 /uL 11/05/2019 3:25 AM [facility] nRBC Auto 0.0 0 /100 WBC 11/05/2019 3:25 AM [facility] Blood BLOOD SPECIMEN / Unknown Lab Venipuncture / Unknown 11/05/2019 2:58 AM CDT 11/05/2019 3:15 AM CDT Sam Palmer DO LAB - HEMATOLOGY ORD ERABLES [facility] [address] [phone] * (ABNORMAL) BASIC METABOLIC PANEL (CALCIUM TOTAL) (11/05/2019 2:58 AM CDT) BUN 7 7 - 26 mg/dL 11/05/2019 3:42 AM [facility] Creatinine 0.7 0.6 - 1.2 mg/dL 11/05/2019 3:42 AM [facility] Sodium 139 136 - 145 mmol/L 11/05/2019 3:42 AM [facility] Potassium 4.0 3.5 - 4.5 mmol/L 11/05/2019 3:42 AM [facility] Chloride 105 98 - 107 mmol/L 11/05/2019 3:42 AM [facility] CO2 25 22 - 29 mmol/L 11/05/2019 3:42 AM [facility] Glucose 126(H) 70 - 115 mg/dL 11/05/2019 3:42 AM [facility] Calcium 8.4 8.4 - 10.2 mg/dL 11/05/2019 3:42 AM [facility] Anion Gap 13 8 - 18 11/05/2019 3:42 AM [facility] BUN/Creatinine Ratio 10 7 - 23 11/05/2019 3:42 AM [facility] Osmolality Calculated 288 270 - 300 mOsm/kg 11/05/2019 3:42 AM [facility] eGFR >60 >60 mL/min/1.7 3 m2 11/05/2019 3:42 AM [facility] Blood BLOOD SPECIMEN / Unknown Lab Venipuncture / Unknown 11/05/2019 2:58 AM CDT 11/05/2019 3:15 AM CDT Sam Palmer DO LAB - CHEMISTRY ANGELA JONES Performing Organization Address City/State/[facility] Co de Phone Number [address] [phone] * XR ABDOMEN KUB PORTABLE (11/05/2019 1:47 AM CDT) Anatomical Region Laterality Modality Abdomen Radiographic Radha ging 11/05/2019 6:58 AM CDT Impressions 11/05/2019 12:16 PM CDT IMPRESSION: A feeding tube tube has been retracted and now terminates in the body the stomach. An additional enteric tube has been removed. Dictated by Cal Sahu MD (vice president of nursing). I, Dr. ALMA ROSA CORDON have personally [...] Dictated by Cal Sahu MD (vice president of nursing). I, Dr. ALMA ROSA CORDON have personally reviewed and interpreted this examination/study. This report was electronically signed by ALMA ROSA CORDON on 11/05/2019 12:16 PM . Vasquez Wolff MD DIAGNOSTIC IMAGING O RDERABLES * (ABNORMAL) GLUCOSE - POINT OF CARE (11/05/2019 12:00 AM CDT) Glucose WB/POC 121(H) 70 - 115 mg/dL 11/05/2019 12:02 AM CDT [facility] Specimen Type Arterial/C apillary 11/05/2019 12:02 AM CDT [facility] Blood BLOOD SPECIMEN / Unknown 11/05/2019 12:00 AM CDT 11/05/2019 12:02 AM CDT Sam Landry MD LAB - POINT OF CARE ORDERABLES [address] [phone] * XR ABDOMEN KUB PORTABLE (11/04/2019 5:45 [...] the midline. Dictated by Cal Sahu MD (vice president of nursing). I, Dr. ALMA ROSA CORDON have personally [...] the midline. Dictated by Cal Sahu MD (vice president of nursing). I, Dr. ALMA ROSA CORDON have personally reviewed and interpreted this examination/study. This report was electronically signed by ALMA ROSA CORDON on 11/05/2019 11:51 AM . Sara Gamino MD DIAGNOSTIC IMAGING O RDERABLES * (ABNORMAL) RETIC COUNT (11/04/2019 5:32 PM CDT) Reticulocyte % 6.4(H) 0.4 - 2.5 % 11/04/2019 5:40 PM CDT [facility] Reticulocyte Absolute 0.17(H) 0.02 - 0.13 10? 6 /uL 11/04/2019 5:40 PM CDT [facility] Blood BLOOD SPECIMEN / Unknown Lab Venipuncture / Unknown 11/04/2019 5:32 PM CDT 11/04/2019 5:37 PM CDT Sam Palmer DO LAB - HEMATOLOGY ORD ERABLES [address] [phone] * (ABNORMAL) VITAMIN B12 (11/04/2019 5:32 PM CDT) Pathologist [facility] Vitamin B12 908(H) 213 - 816 pg/mL 11/04/2019 6:22 PM CDT [facility] Blood BLOOD SPECIMEN / Unknown Lab Venipuncture / Unknown 11/04/2019 5:32 PM CDT 11/04/2019 5:37 PM CDT Sam Palmer DO LAB - CHEMISTRY ANGELA JONES [address] [phone] * EGD (11/04/2019 2:40 PM CDT) [facility] Report Endoscopy POC Endoscopy Department Report _ [...] and ?oxygen saturations were monitored continuously. The ?[id number] was introduced through the mouth, and ?advanced [...] Procedure Code(s): ? --- Professional --- ? 87020, Esophagogastroduod enoscopy, flexible, transoral; with insertion ? of intraluminal tube or catheter Diagnosis Code(s): ?--- Professional --- ?Z98.0, Intestinal bypass and anastomosis status ?Z98.890, Other specified postprocedural states ?K31.89, Other diseases of stomach and duodenum ?R11.2, Nausea with vomiting, unspecified CPT copyright 2016 [employer]. All rights reserved. The codes documented in this report are preliminary and upon plastics plater review may be revised to meet current compliance requirements. Bobby Napier, 11/04/2019 4:09:07 PM Note Initiated On: 11/04/2019 2:40 PM Number of Addenda: 0 ? [facility] ? [id number] [place] [address] [facility] 11/04/2019 2:40 PM CDT Bobby Napier MD GI PROCEDURE ORDERAB LES [facility] * (ABNORMAL) GLUCOSE - POINT OF CARE (11/04/2019 12:01 PM CDT) Glucose WB/POC 122(H) 70 - 115 mg/dL 11/04/2019 12:06 PM CDT [facility] Specimen Type Arterial/C apillary 11/04/2019 12:06 PM CDT [facility] Blood BLOOD SPECIMEN / Unknown 11/04/2019 12:01 PM CDT 11/04/2019 12:06 PM CDT Sam Landry MD LAB - POINT OF CARE ORDERABLES [address] [phone] * (ABNORMAL) TRANSFERRIN (11/04/2019 11:15 AM CDT) Transferrin 145(L) 174 - 382 mg/dL 11/04/2019 2:24 PM CDT [facility] Transferrin Saturation % 14(L) 16 - 50 % 11/04/2019 2:24 PM CDT [facility] Blood BLOOD SPECIMEN / Unknown Lab Venipuncture / Unknown 11/04/2019 11:15 AM CDT 11/04/2019 11:20 AM CDT Sam Palmer DO LAB - CHEMISTRY ANGELA JONES Performing Organization Address City/[facility]/ZIP Co de Phone Number [address] [phone] * (ABNORMAL) FERRITIN (11/04/2019 11:15 AM CDT) Ferritin 354(H) 13 - 204 ng/mL 11/04/2019 2:34 PM CDT [facility] Blood BLOOD SPECIMEN / Unknown Lab Venipuncture / Unknown 11/04/2019 11:15 AM CDT 11/04/2019 11:20 AM CDT Sam Palmer DO LAB - CHEMISTRY ORDCinthia JONES Performing Organization Address [facility]/[place] [address], [facility] [phone] * (ABNORMAL) IRON BLOOD (11/04/2019 11:15 AM CDT) Iron 26(L) 40 - 150 mcg/dL 11/04/2019 2:24 PM CDT [facility] Blood BLOOD SPECIMEN / Unknown Lab Venipuncture / Unknown 11/04/2019 11:15 AM CDT 11/04/2019 11:20 AM CDT Sam Palmer DO LAB - CHEMISTRY KARENCinthia ROBERT [address] [phone] * GLUCOSE - POINT OF CARE (11/04/2019 6:06 AM CDT) Glucose WB/POC 115 70 - 115 mg/dL 11/04/2019 6:12 AM CDT [facility] Specimen Type Arterial/C apillary 11/04/2019 6:12 AM CDT [facility] Blood BLOOD SPECIMEN / Unknown 11/04/2019 6:06 AM CDT 11/04/2019 6:12 AM CDT Sam Landry MD LAB - POINT OF CARE ORDERABLES Performing Organization Address City/[facility]/ZIP Co de Phone Number [address] [phone] * (ABNORMAL) FOLATE (11/04/2019 3:05 AM CDT) Folate 4.4(L) 7.0 - 31.4 ng/mL 11/04/2019 6:18 AM CDT [facility] Blood BLOOD SPECIMEN / Unknown Lab Venipuncture / Unknown 11/04/2019 3:05 AM CDT 11/04/2019 4:14 AM CDT Sam Palmer DO LAB - CHEMISTRY ANGELA JAMILAFRANDY Performing Organization Address City/[facility]/[place] [address], [facility] [phone] * PHOSPHORUS BLOOD (11/04/2019 3:05 AM CDT) Phosphorus 3.6 2.3 - 4.7 mg/dL 11/04/2019 4:45 AM CDT [facility] Blood BLOOD SPECIMEN / Unknown Lab Venipuncture / Unknown 11/04/2019 3:05 AM CDT 11/04/2019 4:14 AM CDT Sam Palmer DO LAB - CHEMISTRY ANGELA JONES [address] [phone] * MAGNESIUM BLOOD (11/04/2019 3:05 AM CDT) Magnesium 1.9 1.6 - 2.6 mg/dL 11/04/2019 4:45 AM T [facility] Blood BLOOD SPECIMEN / Unknown Lab Venipuncture / Unknown 11/04/2019 3:05 AM CDT 11/04/2019 4:14 AM CDT Samconstantino Stevensgaby MULLINS LAB - CHEMISTRY ANGELA MARINOFRANDY Performing Organization Address [facility]/ZIP Co de Phone Number [address] [phone] * (ABNORMAL) CBC W/O DIFFERENTIAL (11/04/2019 3:05 AM CDT) WBC 17.1(H) 3.5 - 10.5 10? 3 /uL 11/04/2019 4:30 AM [facility] RBC 2.63(L) 3.90 - 5.00 10? 6 /uL 11/04/2019 4:30 AM [facility] Hemoglobin 8.1(L) 12.0 - 15.5 g/dL 11/04/2019 4:30 AM [facility] Hematocrit 24.6(L) 35.0 - 45.0 % 11/04/2019 4:30 AM [facility] MCV 93.5 81.0 - 97.0 fL 11/04/2019 4:30 AM [facility] MCH 30.8 28.0 - 34.0 pg 11/04/2019 4:30 AM [facility] MCHC 32.9 32.0 - 36.0 g/dL 11/04/2019 4:30 AM [facility] Platelet Count 537(H) 150 - 400 10? 3 /uL 11/04/2019 4:30 AM [facility] RDW-SD 47.0 36.0 - 50.0 fL 11/04/2019 4:30 AM [facility] RDW-CV 14.5 11.2 - 14.8 % 11/04/2019 4:30 AM [facility] MPV 10.1 9.3 - 12.8 fL 11/04/2019 4:30 AM [facility] nRBC Absolute 0.02(H) 0 10? 3 /uL 11/04/2019 4:30 AM [facility] nRBC Auto 0.1(H) 0 /100 WBC 11/04/2019 4:30 AM [facility] Blood BLOOD SPECIMEN / Unknown Lab Venipuncture / Unknown 11/04/2019 3:05 AM CDT 11/04/2019 4:14 AM T Sam Palmer DO LAB - HEMATOLOGY ORD ERABLES [address] [phone] * (ABNORMAL) BASIC METABOLIC PANEL (CALCIUM TOTAL) (11/04/2019 3:05 AM CDT) BUN 5(L) 7 - 26 mg/dL 11/04/2019 4:45 AM [facility] Creatinine 0.8 0.6 - 1.2 mg/dL 11/04/2019 4:45 AM [facility] Sodium 138 136 - 145 mmol/L 11/04/2019 4:45 AM [facility] Potassium 3.7 3.5 - 4.5 mmol/L 11/04/2019 4:45 AM [facility] Chloride 105 98 - 107 mmol/L 11/04/2019 4:45 AM [facility] CO2 21(L) 22 - 29 mmol/L 11/04/2019 4:45 AM [facility] Glucose 106 70 - 115 mg/dL 11/04/2019 4:45 AM [facility] Calcium 8.3(L) 8.4 - 10.2 mg/dL 11/04/2019 4:45 AM CDT [facility] Anion Gap 16 8 - 18 11/04/2019 4:45 AM CDT [facility] BUN/Creatinine Ratio 6(L) 7 - 23 11/04/2019 4:45 AM CDT [facility] Osmolality Calculated 284 270 - 300 mOsm/kg 11/04/2019 4:45 AM T [facility] eGFR >60 >60 mL/min/1.7 3 m2 11/04/2019 4:45 AM T [facility] Blood BLOOD SPECIMEN / Unknown Lab Venipuncture / Unknown 11/04/2019 3:05 AM CDT 11/04/2019 4:14 AM CDT Sam Palmer DO LAB - CHEMISTRY ANGELA JONES Performing Organization Address [facility] Co de Phone Number [address] [phone] * TRIGLYCERIDES BLOOD (11/04/2019 3:05 AM CDT) Triglycerides 77 <150 mg/dL 11/04/2019 4:45 AM CDT [facility] Comment: ATP III Classification of Triglycerides: ?<150 mg/dL: ??Normal ? 150 - 199 mg/dL: ??Borderline High ? 200 - 400 mg/dL: ??High ?>500 mg/dL: ??Very High Blood BLOOD SPECIMEN / Unknown Lab Venipuncture / Unknown 11/04/2019 3:05 AM CDT 11/04/2019 4:14 AM CDT Lolis Layne APRN-INTERNATIONAL SALES REPRESENTATIVE LAB - CHEMISTRY Rajesh LUCAS Performing Organization Address [facility]/ZIP Co de Phone Number [address] [phone] * (ABNORMAL) HEPATIC FUNCTION PANEL (11/04/2019 3:05 AM CDT) Protein Total 5.5(L) 6.0 - 8.3 g/dL 020 4:45 AM [facility] Albumin 2.9(L) 3.4 - 5.0 g/dL 11/04/2019 4:45 AM [facility] Bilirubin Total 0.4 0.2 - 1.2 mg/dL 10/22 4:45 AM [facility] Bilirubin Conjugated 0.2 0.0 - 0.5 mg/dL 11/04/2019 4:45 AM [facility] Bilirubin Unconjugated 0.2 Unconjugated Bilirubin is a calculated value: Reference ranges have not been established. mg/dL 11/04/2019 4:45 AM [facility] Alkaline Phosphatase 44 40 - 150 Units/L 11/04/2019 4:45 AM [facility] ALT 29 0 - 55 Units/L 11/04/2019 4:45 AM [facility] AST 41(H) 5 - 34 Units/L 11/04/2019 4:45 AM [facility] Albumin/Globulin Ratio 1.1 1.1 - 2.3 11/04/2019 4:45 AM [facility] Blood BLOOD SPECIMEN / Unknown Lab Venipuncture / Unknown 11/04/2019 3:05 AM CDT 11/04/2019 4:14 AM CDT Lolis Layne QUARRY EXTRACTION WORKER-INTERNATIONAL SALES REPRESENTATIVE LAB - CHEMISTRY O RDERABLES Performing Organization Address City/State/[facility] Co de Phone Number [facility] [address] [place] [address] * GLUCOSE - POINT OF CARE (11/03/2019 11:31 PM CDT) Glucose WB/POC 104 70 - 115 mg/dL 11/03/2019 11:36 PM T [facility] Specimen Type Arterial/C apillary 11/03/2019 11:36 PM T [facility] Blood BLOOD SPECIMEN / Unknown 11/03/2019 11:31 PM CDT 11/03/2019 11:36 PM CDT Sam Landry MD LAB - POINT OF CARE ORDERABLES Performing Organization Address City/[facility]/[place] [address], [facility] [phone] * GLUCOSE - POINT OF CARE (11/03/2019 5:32 PM CDT) Glucose WB/POC 110 70 - 115 mg/dL 11/03/2019 5:39 PM CDT [facility] Specimen Type Arterial/C apillary 11/03/2019 5:39 PM CDT [facility] Blood BLOOD SPECIMEN / Unknown 11/03/2019 5:32 PM CDT 11/03/2019 5:39 PM CDT Sam Landry MD LAB - POINT OF CARE ORDERABLES Performing Organization Address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 Organization Address [facility]/ZIP Co de Phone Number [address] [phone] * (ABNORMAL) BASIC METABOLIC PANEL (CALCIUM TOTAL) (10/29/2019 1:03 PM BULL CHAIN OPERATOR) BUN 4(L) 7 - 26 mg/dL 10/29/2019 1:38 PM [facility] Creatinine 0.7 0.6 - 1.2 mg/dL 10/29/2019 1:38 PM [facility] Sodium 138 136 - 145 mmol/L 10/29/2019 1:38 PM [facility] Potassium 3.5 3.5 - 4.5 mmol/L 10/29/2019 1:38 PM [facility] Chloride 109(H) 98 - 107 mmol/L 10/29/2019 1:38 PM [facility] CO2 20(L) 22 - 29 mmol/L 10/29/2019 1:38 PM [facility] Glucose 97 70 - 115 mg/dL 10/29/2019 1:38 PM [facility] Calcium 7.6(L) 8.4 - 10.2 mg/dL 10/29/2019 1:38 PM [facility] Anion Gap 13 8 - 18 10/29/2019 1:38 PM [facility] BUN/Creatinine Ratio 6(L) 7 - 23 10/29/2019 1:38 PM [facility] Osmolality Calculated 283 270 - 300 mOsm/kg 10/29/2019 1:38 PM [facility] eGFR >60 >60 mL/min/1.7 3 m2 10/29/2019 1:38 PM [facility] Blood BLOOD SPECIMEN / Unknown Venipuncture / Unknown 10/29/2019 1:03 PM BULL CHAIN OPERATOR 10/29/2019 1:17 PM BULL CHAIN OPERATOR Tyrone Solis MD LAB - CHEMISTRY ORD ERABLES Performing Organization Address City/[facility]/ZIP Co de Phone Number [address] [phone] * (ABNORMAL) CBC W/O DIFFERENTIAL (10/29/2019 6:31 AM [facility]) WBC 14.0(H) 3.5 - 10.5 10? 3 /uL 10/29/2019 6:55 AM [facility] RBC 2.39(L) 3.90 - 5.00 10? 6 /uL 10/29/2019 6:55 AM [facility] Hemoglobin 7.4(L) 12.0 - 15.5 g/dL 10/29/2019 6:55 AM [facility] Hematocrit 21.8(L) 35.0 - 45.0 % 10/29/2019 6:55 AM [facility] MCV 91.2 81.0 - 97.0 fL 10/29/2019 6:55 AM [facility] MCH 31.0 28.0 - 34.0 pg 10/29/2019 6:55 AM [facility] MCHC 33.9 32.0 - 36.0 g/dL 10/29/2019 6:55 AM [facility] Platelet Count 112(L) 150 - 400 10? 3 /uL 10/29/2019 6:55 AM [facility] RDW-SD 51.0(H) 36.0 - 50.0 fL 10/29/2019 6:55 AM [facility] RDW-CV 15.2(H) 11.2 - 14.8 % 10/29/2019 6:55 AM [facility] MPV 11.1 9.3 - 12.8 fL 10/29/2019 6:55 AM [facility] nRBC Absolute 0.00 0 10? 3 /uL 10/29/2019 6:55 AM [facility] nRBC Auto 0.0 0 /100 WBC 10/29/2019 6:55 AM [facility] Blood BLOOD SPECIMEN / Unknown Venipuncture / Unknown 10/29/2019 6:31 AM BULL CHAIN OPERATOR 10/29/2019 6:36 AM [facility] Tyrone Solis MD LAB - HEMATOLOGY OR DERABLES [facility] [address] [place] [address] * (ABNORMAL) BLOOD GASES ARTERIAL (10/29/2019 6:31 AM [facility]) pH Arterial 7.38 7.35 - 7.45 10/29/2019 7:16 AM [facility] pCO2 Arterial 38 35 - 45 mmHg 10/29/2019 7:16 AM [facility] pO2 Arterial 212(H) 82 - 106 mmHg 10/29/2019 7:16 AM [facility] HCO3 Arterial 21.8(L) 22.0 - 26.0 mmol/L 10/29/2019 7:16 AM [facility] TCO2 Arterial 22.9(L) 25.0 - 29.0 mmol/L 10/29/2019 7:16 AM [facility] Base Excess Arterial -3.1(L) -2.0 - 2.0 mmol/L 10/29/2019 7:16 AM [facility] Hemoglobin Arterial 7.4(L) 12.0 - 15.5 g/dL 10/29/2019 7:16 AM [facility] Oxyhemoglobin Arterial 97.5 95.0 - 100.0 % 10/29/2019 7:16 AM [facility] Carboxyhemoglobin 0.2 0.0 - 3.0 % 10/29/2019 7:16 AM [facility] Methemoglobin 0.7 0.0 - 2.0 % 10/29/2019 7:16 AM [facility] FI O2 Arterial 40.0 % 10/29/2019 7:16 AM [facility] Blood, arterial ARTERIAL BLOOD SPECIMEN / Unknown Arterial Puncture / Unknown 10/29/2019 6:31 AM BULL CHAIN OPERATOR 10/29/2019 7:14 AM [facility] Tyrone Solis MD LAB - BLOOD GASES O RDERABLES [address] [phone] * (ABNORMAL) BASIC METABOLIC PANEL (CALCIUM TOTAL) (10/29/2019 6:31 AM [facility]) BUN 4(L) 7 - 26 mg/dL 10/29/2019 7:09 AM [facility] Creatinine 0.8 0.6 - 1.2 mg/dL 10/29/2019 7:09 AM [facility] Sodium 137 136 - 145 mmol/L 10/29/2019 7:09 AM [facility] Potassium 3.5 3.5 - 4.5 mmol/L 10/29/2019 7:09 AM [facility] Chloride 109(H) 98 - 107 mmol/L 10/29/2019 7:09 AM [facility] CO2 21(L) 22 - 29 mmol/L 10/29/2019 7:09 AM [facility] Glucose 83 70 - 115 mg/dL 10/29/2019 7:09 AM [facility] Calcium 7.9(L) 8.4 - 10.2 mg/dL 10/29/2019 7:09 AM [facility] Anion Gap 11 8 - 18 10/29/2019 7:09 AM [facility] BUN/Creatinine Ratio 5(L) 7 - 23 10/29/2019 7:09 AM [facility] Osmolality Calculated 280 270 - 300 mOsm/kg 10/29/2019 7:09 AM [facility] eGFR >60 >60 mL/min/1.7 3 m2 10/29/2019 7:09 AM [facility] Blood BLOOD SPECIMEN / Unknown Venipuncture / Unknown 10/29/2019 6:31 AM BULL CHAIN OPERATOR 10/29/2019 6:36 AM BULL CHAIN OPERATOR Tyrone Solis MD LAB - CHEMISTRY ORD ERABLES Performing Organization Address [facility]/State/[facility] Co de Phone Number [address] [phone] * XR CHEST 1VW PORTABLE (10/29/2019 6:03 AM BULL CHAIN OPERATOR) Anatomical Region Laterality Modality Chest Radiographic Radha ging 10/29/2019 8:37 AM BULL CHAIN OPERATOR Impressions 10/29/2019 7:08 PM BULL CHAIN OPERATOR FINDINGS/IMPRESSION: The endotracheal tube terminates in the mid to distal thoracic trachea. The enteric tube terminates in the distal stomach. A right internal jugular approach central venous catheter superimposes the superior vena cava. The lung volumes remain small. There is no focal consolidation, pleural effusion, or pneumothorax. The cardiomediastinal silhouette is stable. Dictated by Cal Sahu MD (vice president of nursing). I, Dr. CANDE LECHUGA have personally reviewed and interpreted this examination/study. This report was electronically signed by CANDE LECHUGA ??on 10/29/2019 7:08 PM . Narrative 10/29/2019 7:08 PM BULL CHAIN OPERATOR EXAMINATION: XR CHEST 1VW PORTABLE HISTORY: [id number]: [...] Dictated by Cal Sahu MD (vice president of nursing). Dr. CANDE Simmons have personally reviewed and interpreted this examination/study. This report was electronically signed by CANDE LECHUGA on 10/29/20197:08 PM . Kapil Gonsalves MD DIAGNOSTIC IMAGING O RDERABLES * (ABNORMAL) CBC W/O DIFFERENTIAL (10/29/2019 12:42 AM BULL CHAIN OPERATOR) WBC 13.3(H) 3.5 - 10.5 10? 3 /uL 10/29/2019 12:55 AM [facility] RBC 2.53(L) 3.90 - 5.00 10? 6 /uL 10/29/2019 12:55 AM [facility] Hemoglobin 7.8(L) 12.0 - 15.5 g/dL 10/29/2019 12:55 AM [facility] Hematocrit 22.9(L) 35.0 - 45.0 % 10/29/2019 12:55 AM [facility] MCV 90.5 81.0 - 97.0 fL 10/29/2019 12:55 AM [facility] MCH 30.8 28.0 - 34.0 pg 10/29/2019 12:55 AM [facility] MCHC 34.1 32.0 - 36.0 g/dL 10/29/2019 12:55 AM [facility] Platelet Count 102(L) 150 - 400 10? 3 /uL 10/29/2019 12:55 AM [facility] RDW-SD 50.6(H) 36.0 - 50.0 fL 10/29/2019 12:55 AM [facility] RDW-CV 15.3(H) 11.2 - 14.8 % 10/29/2019 12:55 AM [facility] MPV 11.2 9.3 - 12.8 fL 10/29/2019 12:55 AM [facility] nRBC Absolute 0.00 0 10? 3 /uL 10/29/2019 12:55 AM [facility] nRBC Auto 0.0 0 /100 WBC 10/29/2019 12:55 AM [facility] Blood BLOOD SPECIMEN / Unknown Venipuncture / Unknown 10/29/2019 12:42 AM BULL CHAIN OPERATOR 10/29/2019 12:48 AM BULL CHAIN OPERATOR Tyrone Solis MD LAB - HEMATOLOGY OR DERABLES Performing Organization Address [facility]/State/[facility] Co de Phone Number [address] [phone] * (ABNORMAL) BLOOD GASES ARTERIAL (10/29/2019 12:42 AM BULL CHAIN OPERATOR) pH Arterial 7.36 7.35 - 7.45 10/29/2019 12:51 AM [facility] pCO2 Arterial 37 35 - 45 mmHg 10/29/2019 12:51 AM [facility] pO2 Arterial 157(H) 82 - 106 mmHg 10/29/2019 12:51 AM [facility] HCO3 Arterial 20.8(L) 22.0 - 26.0 mmol/L 10/29/2019 12:51 AM [facility] TCO2 Arterial 21.9(L) 25.0 - 29.0 mmol/L 10/29/2019 12:51 AM [facility] Base Excess Arterial -4.2(L) -2.0 - 2.0 mmol/L 10/29/2019 12:51 AM [facility] Hemoglobin Arterial 7.6(L) 12.0 - 15.5 g/dL 10/29/2019 12:51 AM [facility] Oxyhemoglobin Arterial 97.3 95.0 - 100.0 % 10/29/2019 12:51 AM [facility] Carboxyhemoglobin 0.1 0.0 - 3.0 % 10/29/2019 12:51 AM [facility] Methemoglobin 0.5 0.0 - 2.0 % 10/29/2019 12:51 AM [facility] FI O2 Arterial 40.0 % 10/29/2019 12:51 AM [facility] Blood, arterial ARTERIAL BLOOD SPECIMEN / Unknown Arterial Puncture / Unknown 10/29/2019 12:42 AM [employer] 10/29/2019 12:46 AM [facility] Tyrone Solis MD LAB - BLOOD GASES O RDERABLES [address] [phone] * (ABNORMAL) BASIC METABOLIC PANEL (CALCIUM TOTAL) (10/29/2019 12:42 AM [facility]) BUN 5(L) 7 - 26 mg/dL 10/29/2019 1:15 AM [facility] Creatinine 0.8 0.6 - 1.2 mg/dL 10/29/2019 1:15 AM [facility] Sodium 138 136 - 145 mmol/L 10/29/2019 1:15 AM [facility] Potassium 3.5 3.5 - 4.5 mmol/L 10/29/2019 1:15 AM [facility] Chloride 109(H) 98 - 107 mmol/L 10/29/2019 1:15 AM [facility] CO2 19(L) 22 - 29 mmol/L 10/29/2019 1:15 AM [facility] Glucose 86 70 - 115 mg/dL 10/29/2019 1:15 AM [facility] Calcium 7.9(L) 8.4 - 10.2 mg/dL 10/29/2019 1:15 AM [facility] Anion Gap 14 8 - 18 10/29/2019 1:15 AM [facility] BUN/Creatinine Ratio 6(L) 7 - 23 10/29/2019 1:15 AM [facility] Osmolality Calculated 283 270 - 300 mOsm/kg 10/29/2019 1:15 AM [facility] eGFR >60 >60 mL/min/1.7 3 m2 10/29/2019 1:15 AM [facility] Blood BLOOD SPECIMEN / Unknown Venipuncture / Unknown 10/29/2019 12:42 AM [employer] 10/29/2019 12:48 AM [employer] Tyrone Solis MD LAB - CHEMISTRY ORD ERABLES Performing Organization Address [facility] Co de Phone Number [address] [phone] * (ABNORMAL) PT-INR [facility] (10/29/2019 12:42 AM [employer]) PT 16.4(H) 12.1 - 14.8 Seconds 10/29/2019 12:59 AM [facility] INR 1.4 See Comment 10/29/2019 12:59 AM [facility] Comment:The suggested therap eutic range for standard coumadin (warfarin) therapy is an INR of 2.0-3.0. For high-risk patients (Mechanical Mitral Valve Prosthesis, etc.), the suggested prophylactic therapeutic range is an INR of 2.5-3.5. Blood BLOOD SPECIMEN / Unknown Venipuncture / Unknown 10/29/2019 12:42 AM [employer] 10/29/2019 12:48 AM [employer] Nano Garces MD LAB - COAGULATI ON ORDERABLES Performing Organization Address [facility]/ZIP Co de Phone Number [address] [phone] * PHOSPHORUS BLOOD (10/29/2019 12:42 AM [employer]) Phosphorus 2.5 2.3 - 4.7 mg/dL 10/29/2019 1:15 AM [facility] Blood BLOOD SPECIMEN / Unknown Venipuncture / Unknown 10/29/2019 12:42 AM [employer] 10/29/2019 12:48 AM [employer] Nano Garces MD LAB - CHEMISTRY ORDERABLES Performing Organization Address [facility]/ZIP Co de Phone Number [address] [phone] * MAGNESIUM BLOOD (10/29/2019 12:42 AM [employer]) Magnesium 1.7 1.6 - 2.6 mg/dL 10/29/2019 1:15 AM [facility] Blood BLOOD SPECIMEN / Unknown Venipuncture / Unknown 10/29/2019 12:42 AM [employer] 10/29/2019 12:48 AM [employer] Nano Garces MD LAB - CHEMISTRY ORDERABLES Performing Organization Address City/[facility]/ZIP Co de Phone Number [address] [phone] * (ABNORMAL) CBC W/O DIFFERENTIAL (10/28/2019 6:17 PM [employer]) WBC 12.1(H) 3.5 - 10.5 10? 3 /uL 10/28/2019 6:33 PM [facility] RBC 2.49(L) 3.90 - 5.00 10? 6 /uL 10/28/2019 6:33 PM [facility] Hemoglobin 7.7(L) 12.0 - 15.5 g/dL 10/28/2019 6:33 PM [facility] Hematocrit 22.5(L) 35.0 - 45.0 % 10/28/2019 6:33 PM [facility] MCV 90.4 81.0 - 97.0 fL 10/28/2019 6:33 PM [facility] MCH 30.9 28.0 - 34.0 pg 10/28/2019 6:33 PM [facility] MCHC 34.2 32.0 - 36.0 g/dL 10/28/2019 6:33 PM [facility] Platelet Count 95(L) 150 - 400 10? 3 /uL 10/28/2019 6:33 PM [facility] RDW-SD 51.4(H) 36.0 - 50.0 fL 10/28/2019 6:33 PM [facility] RDW-CV 15.5(H) 11.2 - 14.8 % 10/28/2019 6:33 PM [facility] MPV 11.2 9.3 - 12.8 fL 10/28/2019 6:33 PM [facility] nRBC Absolute 0.00 0 10? 3 /uL 10/28/2019 6:33 PM [facility] nRBC Auto 0.0 0 /100 WBC 10/28/2019 6:33 PM [facility] Blood BLOOD SPECIMEN / Unknown Venipuncture / Unknown 10/28/2019 6:17 PM [employer] 10/28/2019 6:28 PM [employer] Tyrone Solis MD LAB - HEMATOLOGY OR DERABLES [address] [phone] * (ABNORMAL) BLOOD GASES ARTERIAL (10/28/2019 6:17 PM [employer]) pH Arterial 7.42 7.35 - 7.45 10/28/2019 6:29 PM [facility] pCO2 Arterial 30(L) 35 - 45 mmHg 10/28/2019 6:29 PM [facility] [facility] pO2 Arterial 142(H) 82 - 106 mmHg 10/28/2019 6:29 PM [facility] HCO3 Arterial 19.1(L) 22.0 - 26.0 mmol/L 10/28/2019 6:29 PM [facility] TCO2 Arterial 20.0(L) 25.0 - 29.0 mmol/L 10/28/2019 6:29 PM [facility] Base Excess Arterial -4.7(L) -2.0 - 2.0 mmol/L 10/28/2019 6:29 PM [facility] Hemoglobin Arterial 7.9(L) 12.0 - 15.5 g/dL 10/28/2019 6:29 PM [facility] Oxyhemoglobin Arterial 97.3 95.0 - 100.0 % 10/28/2019 6:29 PM [facility] Carboxyhemoglobin 0.3 0.0 - 3.0 % 10/28/2019 6:29 PM [facility] Methemoglobin 0.7 0.0 - 2.0 % 10/28/2019 6:29 PM [facility] FI O2 Arterial 40.0 % 10/28/2019 6:29 PM [facility] Blood, arterial ARTERIAL BLOOD SPECIMEN / Unknown Arterial Puncture / Unknown 10/28/2019 6:17 PM BULL CHAIN OPERATOR 10/28/2019 6:28 PM BULL CHAIN OPERATOR Tyrone Solis MD LAB - BLOOD GASES O RDERABLES [facility] [address] [place] [address] * (ABNORMAL) BASIC METABOLIC PANEL (CALCIUM TOTAL) (10/28/2019 6:17 PM BULL CHAIN OPERATOR) BUN 6(L) 7 - 26 mg/dL 10/28/2019 7:03 PM [facility] Creatinine 0.7 0.6 - 1.2 mg/dL 10/28/2019 7:03 PM [facility] Sodium 138 136 - 145 mmol/L 10/28/2019 7:03 PM [facility] Potassium 3.7 3.5 - 4.5 mmol/L 10/28/2019 7:03 PM [facility] Chloride 109(H) 98 - 107 mmol/L 10/28/2019 7:03 PM [facility] CO2 20(L) 22 - 29 mmol/L 10/28/2019 7:03 PM [facility] Glucose 89 70 - 115 mg/dL 10/28/2019 7:03 PM [facility] Calcium 7.6(L) 8.4 - 10.2 mg/dL 10/28/2019 7:03 PM [facility] Anion Gap 13 8 - 18 10/28/2019 7:03 PM [facility] BUN/Creatinine Ratio 9 7 - 23 10/28/2019 7:03 PM [facility] Osmolality Calculated 283 270 - 300 mOsm/kg 10/28/2019 7:03 PM [facility] eGFR >60 >60 mL/min/1.7 3 m2 10/28/2019 7:03 PM [facility] Blood BLOOD SPECIMEN / Unknown Venipuncture / Unknown 10/28/2019 6:17 PM BULL CHAIN OPERATOR 10/28/2019 6:28 PM BULL CHAIN OPERATOR Tyrone Solis MD LAB - CHEMISTRY ORD ERABLES [facility] [address] [phone] * (ABNORMAL) BLOOD GASES ART COMPLETE [facility] OR (10/28/2019 2:12 PM [facility]) pH Arterial 7.38 7.35 - 7.45 10/28/2019 2:18 PM [facility] pCO2 Arterial 37 35 - 45 mmHg 10/28/2019 2:18 PM [facility] pO2 Arterial 133 mmHg 10/28/2019 2:18 PM [facility] HCO3 Arterial 21.4(L) 22.0 - 26.0 mmol/L 10/28/2019 2:18 PM [facility] TCO2 Arterial 22.6(L) 25.0 - 29.0 mmol/L 10/28/2019 2:18 PM [facility] Base Excess Arterial -3.3(L) -2.0 - 2.0 mmol/L 10/28/2019 2:18 PM [facility] Hemoglobin Arterial 8.6(L) 12.0 - 15.5 g/dL 10/28/2019 2:18 PM [facility] Oxyhemoglobin Arterial 97.1 92.0 - 100.0 % 10/28/2019 2:18 PM [facility] Carboxyhemoglobin 0.2 0.0 - 3.0 % 10/28/2019 2:18 PM [facility] Methemoglobin 0.2 0.0 - 2.0 % 10/28/2019 2:18 PM [facility] FI O2 Arterial 50.0 % 10/28/2019 2:18 PM [facility] Ionized Calcium Whole Blood 1.10 mmol/L 10/28/2019 2:18 PM [facility] Adjusted Ionized Calcium 1.09(L) 1.19 - 1.34 mmol/L 10/28/2019 2:18 PM [facility] Sodium Whole Blood 134(L) 135 - 145 mmol/L 10/28/2019 2:18 PM [facility] Potassium Whole Blood 3.9 3.5 - 5.5 mmol/L 10/28/2019 2:18 PM [facility] Chloride Whole Blood 106 mmol/L 01/2020 2:18 PM [facility] Glucose Whole Blood 96 70 - 110 mg/dL 10/28/2019 2:18 PM [facility] Lactic Acid Whole Blood 0.8 0.5 - 3.4 mmol/L 10/28/2019 2:18 PM [facility] Blood ARTERIAL BLOOD SPECIMEN / Unknown Venipuncture / Unknown 10/28/2019 2:12 PM BULL CHAIN OPERATOR 10/28/2019 2:16 PM [facility] Campbell Alcala MD LAB - BLOOD GASES OR DERABLES [address] [phone] * (ABNORMAL) CBC W/O DIFFERENTIAL (10/28/2019 2:12 PM BULL CHAIN OPERATOR) WBC 12.2(H) 3.5 - 10.5 10? 3 /uL 10/28/2019 2:30 PM [facility] RBC 2.71(L) 3.90 - 5.00 10? 6 /uL 10/28/2019 2:30 PM [facility] Hemoglobin 8.3(L) 12.0 - 15.5 g/dL 10/28/2019 2:30 PM [facility] Hematocrit 24.4(L) 35.0 - 45.0 % 10/28/2019 2:30 PM [facility] MCV 90.0 81.0 - 97.0 fL 10/28/2019 2:30 PM [facility] MCH 30.6 28.0 - 34.0 pg 10/28/2019 2:30 PM [facility] MCHC 34.0 32.0 - 36.0 g/dL 10/28/2019 2:30 PM [facility] Platelet Count 98(L) 150 - 400 10? 3 /uL 10/28/2019 2:30 PM [facility] Comment:Checked with previou s results. RDW-SD 51.5(H) 36.0 - 50.0 fL 10/28/2019 2:30 PM [facility] RDW-CV 15.8(H) 11.2 - 14.8 % 10/28/2019 2:30 PM [facility] MPV 10.8 9.3 - 12.8 fL 10/28/2019 2:30 PM [facility] nRBC Absolute 0.00 0 10? 3 /uL 10/28/2019 2:30 PM [facility] nRBC Auto 0.0 0 /100 WBC 10/28/2019 2:30 PM [facility] Blood BLOOD SPECIMEN / Unknown Venipuncture / Unknown 10/28/2019 2:12 PM BULL CHAIN OPERATOR 10/28/2019 2:17 PM BULL CHAIN OPERATOR Tyrone Solis MD LAB - HEMATOLOGY OR DERABLES Performing Organization Address City/State/[facility] Co de Phone Number [address] [phone] * (ABNORMAL) BASIC METABOLIC PANEL (CALCIUM TOTAL) (10/28/2019 2:12 PM BULL CHAIN OPERATOR) BUN 6(L) 7 - 26 mg/dL 10/28/2019 2:40 PM [facility] Creatinine 0.7 0.6 - 1.2 mg/dL 10/28/2019 2:40 PM [facility] Sodium 138 136 - 145 mmol/L 10/28/2019 2:40 PM [facility] Potassium 3.9 3.5 - 4.5 mmol/L 10/28/2019 2:40 PM [facility] Chloride 108(H) 98 - 107 mmol/L 10/28/2019 2:40 PM [facility] CO2 21(L) 22 - 29 mmol/L 10/28/2019 2:40 PM [facility] Glucose 95 70 - 115 mg/dL 10/28/2019 2:40 PM [facility] Calcium 7.9(L) 8.4 - 10.2 mg/dL 10/28/2019 2:40 PM [facility] Anion Gap 13 8 - 18 10/28/2019 2:40 PM [facility] BUN/Creatinine Ratio 9 7 - 23 10/28/2019 2:40 PM [facility] Osmolality Calculated 283 270 - 300 mOsm/kg 10/28/2019 2:40 PM [facility] eGFR >60 >60 mL/min/1.7 3 m2 10/28/2019 2:40 PM [facility] Blood BLOOD SPECIMEN / Unknown Venipuncture / Unknown 10/28/2019 2:12 PM BULL CHAIN OPERATOR 10/28/2019 2:17 PM [facility] Tyrone Solis MD LAB - CHEMISTRY ORD ERABLES [address] [phone] * (ABNORMAL) BLOOD GASES ARTERIAL (10/28/2019 12:04 PM BULL CHAIN OPERATOR) pH Arterial 7.41 7.35 - 7.45 10/28/2019 12:09 PM [facility] pCO2 Arterial 36 35 - 45 mmHg 10/28/2019 12:09 PM [facility] pO2 Arterial 200 mmHg 10/28/2019 12:09 PM [facility] HCO3 Arterial 21.8(L) 22.0 - 26.0 mmol/L 10/28/2019 12:09 PM [facility] TCO2 Arterial 22.9(L) 25.0 - 29.0 mmol/L 10/28/2019 12:09 PM [facility] Base Excess Arterial -2.5(L) -2.0 - 2.0 mmol/L 10/28/2019 12:09 PM [facility] Hemoglobin Arterial 8.6(L) 12.0 - 15.5 g/dL 10/28/2019 12:09 PM [facility] Oxyhemoglobin Arterial 97.6 92.0 - 100.0 % 10/28/2019 12:09 PM BULL CHAIN OPERATOR [facility] Carboxyhemoglobin 0.2 0.0 - 3.0 % 10/28/2019 12:09 PM BULL CHAIN OPERATOR [facility] Methemoglobin 0.5 0.0 - 2.0 % 10/28/2019 12:09 PM BULL CHAIN OPERATOR [facility] FI O2 Arterial 50.0 % 10/28/2019 12:09 PM BULL CHAIN OPERATOR [facility] Blood, arterial ARTERIAL BLOOD SPECIMEN / Unknown Arterial Puncture / Unknown 10/28/2019 12:04 PM BULL CHAIN OPERATOR 10/28/2019 12:07 PM BULL CHAIN OPERATOR Tyrone Solis MD LAB - BLOOD GASES O RDERABLES [address] [phone] * XR ABDOMEN KUB PORTABLE (10/28/2019 12:00 PM BULL CHAIN OPERATOR) Anatomical Region Laterality Modality Abdomen Radiographic Radha ging 10/28/2019 12:1 1 PM BULL CHAIN OPERATOR Impressions 10/28/2019 1:16 PM BULL CHAIN OPERATOR IMPRESSION: No needles, instruments, or sponges. Results were conveyed to JALEN Suarez on 10/28/2019 at 12:10 PM This report was electronically signed by CHAD MOREL M.D. ??on 10/28/2019 1:16 PM . Narrative 10/28/2019 1:16 PM BULL CHAIN OPERATOR Exam: XR ABDOMEN KUB PORTABLE Date: 10/28/2019 [...] (ABNORMAL) CBC W/O DIFFERENTIAL (10/28/2019 6:07 AM [facility]) WBC 11.6(H) 3.5 - 10.5 10? 3 /uL 10/28/2019 6:32 AM [facility] RBC 2.65(L) 3.90 - 5.00 10? 6 /uL 10/28/2019 6:32 AM [facility] Hemoglobin 8.2(L) 12.0 - 15.5 g/dL 10/28/2019 6:32 AM [facility] Hematocrit 23.7(L) 35.0 - 45.0 % 10/28/2019 6:32 AM [facility] MCV 89.4 81.0 - 97.0 fL 10/28/2019 6:32 AM [facility] MCH 30.9 28.0 - 34.0 pg 10/28/2019 6:32 AM [facility] MCHC 34.6 32.0 - 36.0 g/dL 10/28/2019 6:32 AM [facility] Platelet Count 91(L) 150 - 400 10? 3 /uL 10/28/2019 6:32 AM [facility] Comment:Checked with previou s results. RDW-SD 51.5(H) 36.0 - 50.0 fL 10/28/2019 6:32 AM [facility] RDW-CV 15.8(H) 11.2 - 14.8 % 10/28/2019 6:32 AM [facility] MPV 11.1 9.3 - 12.8 fL 10/28/2019 6:32 AM [facility] nRBC Absolute 0.00 0 10? 3 /uL 10/28/2019 6:32 AM [facility] nRBC Auto 0.0 0 /100 WBC 10/28/2019 6:32 AM [facility] Blood BLOOD SPECIMEN / Unknown Venipuncture / Unknown 10/28/2019 6:07 AM BULL CHAIN OPERATOR 10/28/2019 6:13 AM BULL CHAIN OPERATOR Tyrone Solis MD LAB - HEMATOLOGY OR DERABLES Performing Organization Address [facility]/ZIP Co de Phone Number [address] [phone] * (ABNORMAL) BLOOD GASES ARTERIAL (10/28/2019 6:07 AM BULL CHAIN OPERATOR) pH Arterial 7.37 7.35 - 7.45 10/28/2019 6:18 AM [facility] pCO2 Arterial 39 35 - 45 mmHg 10/28/2019 6:18 AM [facility] pO2 Arterial 168 mmHg 10/28/2019 6:18 AM [facility] HCO3 Arterial 22.1 22.0 - 26.0 mmol/L 10/28/2019 6:18 AM [facility] TCO2 Arterial 23.3(L) 25.0 - 29.0 mmol/L 10/28/2019 6:18 AM [facility] Base Excess Arterial -2.8(L) -2.0 - 2.0 mmol/L 10/28/2019 6:18 AM [facility] Hemoglobin Arterial 8.2(L) 12.0 - 15.5 g/dL 10/28/2019 6:18 AM [facility] Oxyhemoglobin Arterial 97.6 92.0 - 100.0 % 10/28/2019 6:18 AM [facility] Carboxyhemoglobin 0.1 0.0 - 3.0 % 10/28/2019 6:18 AM [facility] Methemoglobin 0.3 0.0 - 2.0 % 10/28/2019 6:18 AM [facility] FI O2 Arterial 40.0 % 10/28/2019 6:18 AM [facility] Blood, arterial ARTERIAL BLOOD SPECIMEN / Unknown Arterial Puncture / Unknown 10/28/2019 6:07 AM BULL CHAIN OPERATOR 10/28/2019 6:13 AM BULL CHAIN OPERATOR Tyrone Solis MD LAB - BLOOD GASES O RDERABLES [address] [address], [place] [phone] * (ABNORMAL) BASIC METABOLIC PANEL (CALCIUM TOTAL) (10/28/2019 6:07 AM [facility]) BUN 8 7 - 26 mg/dL 10/28/2019 6:34 AM [facility] Creatinine 0.8 0.6 - 1.2 mg/dL 10/28/2019 6:34 AM [facility] Sodium 139 136 - 145 mmol/L 10/28/2019 6:34 AM [facility] Potassium 3.7 3.5 - 4.5 mmol/L 10/28/2019 6:34 AM [facility] Chloride 112(H) 98 - 107 mmol/L 10/28/2019 6:34 AM [facility] CO2 22 22 - 29 mmol/L 10/28/2019 6:34 AM [facility] Glucose 91 70 - 115 mg/dL 10/28/2019 6:34 AM [facility] Calcium 7.7(L) 8.4 - 10.2 mg/dL 10/28/2019 6:34 AM [facility] Anion Gap 9 8 - 18 10/28/2019 6:34 AM [facility] BUN/Creatinine Ratio 10 7 - 23 10/28/2019 6:34 AM [facility] Osmolality Calculated 286 270 - 300 mOsm/kg 10/28/2019 6:34 AM [facility] eGFR >60 >60 mL/min/1.7 3 m2 10/28/2019 6:34 AM [facility] Blood BLOOD SPECIMEN / Unknown Venipuncture / Unknown 10/28/2019 6:07 AM [facility] 10/28/2019 6:13 AM [facility] Tyrone Solis MD LAB - CHEMISTRY ORD ERABLES [address] [phone] * PHOSPHORUS BLOOD (10/28/2019 6:07 AM [facility]) Phosphorus 3.2 2.3 - 4.7 mg/dL 10/28/2019 6:34 AM [facility] Blood BLOOD SPECIMEN / Unknown Venipuncture / Unknown 10/28/2019 6:07 AM BULL CHAIN OPERATOR 10/28/2019 6:13 AM BULL CHAIN OPERATOR Nano Garces MD LAB - CHEMISTRY ORDERABLES [address] [phone] * MAGNESIUM BLOOD (10/28/2019 6:07 AM BULL CHAIN OPERATOR) Magnesium 2.0 1.6 - 2.6 mg/dL 10/28/2019 6:34 AM BULL CHAIN OPERATOR [facility] Blood BLOOD SPECIMEN / Unknown Venipuncture / Unknown 10/28/2019 6:07 AM BULL CHAIN OPERATOR 10/28/2019 6:13 AM BULL CHAIN OPERATOR Nano Garces MD LAB - CHEMISTRY ORDERABLES Performing Organization Address City/[facility] Co de Phone Number [address] [phone] * XR CHEST 1VW PORTABLE (10/28/2019 5:51 AM BULL CHAIN OPERATOR) Anatomical Region Laterality Modality Chest Radiographic Radha ging 10/28/2019 7:24 AM BULL CHAIN OPERATOR Impressions 10/28/2019 1:09 PM BULL CHAIN OPERATOR FINDINGS/IMPRESSION: Lines: Endotracheal tube tip projects 1.3 [...] is normal. Dictated by Leif Smiley MD (vice president of nursing). I, Dr. ALMA ROSA CORDON have personally reviewed and interpreted this examination/study. This report was electronically signed by ALMA ROSA CORDON ??on 10/28/2019 1:09 PM . Narrative 10/28/2019 1:09 PM BULL CHAIN OPERATOR EXAMINATION: XR CHEST 1VW PORTABLE, 10/28/2019 5:51 AM HISTORY: [id number]: Trauma COMPARISON: Chest x-ray 10/27/2019. Procedure Note Alma Rosa Cordon, - 10/28/2019 EXAMINATION: XR CHEST 1VW PORTABLE, [...] is normal. Dictated by Leif Smiley MD (vice president of nursing). I, Dr. ALMA ROSA CORDON have personally reviewed and interpreted this examination/study. This report was electronically signed by ALMA ROSA CORDON on 10/28/2019 1:09 PM . Kapil Gonsalves MD DIAGNOSTIC IMAGING O RDERABLES * (ABNORMAL) CBC W/O DIFFERENTIAL (10/27/2019 11:57 PM BULL CHAIN OPERATOR) WBC 10.2 3.5 - 10.5 10? 3 /uL 10/28/2019 12:21 AM [facility] RBC 2.72(L) 3.90 - 5.00 10? 6 /uL 10/28/2019 12:21 AM [facility] Hemoglobin 8.3(L) 12.0 - 15.5 g/dL 10/28/2019 12:21 AM [facility] Hematocrit 24.2(L) 35.0 - 45.0 % 10/28/2019 12:21 AM [facility] MCV 89.0 81.0 - 97.0 fL 10/28/2019 12:21 AM [facility] MCH 30.5 28.0 - 34.0 pg 10/28/2019 12:21 AM [facility] MCHC 34.3 32.0 - 36.0 g/dL 10/28/2019 12:21 AM [facility] Platelet Count 95(L) 150 - 400 10? 3 /uL 10/28/2019 12:21 AM [facility] Comment:Confirmed with previ ous result RDW-SD 50.9(H) 36.0 - 50.0 fL 10/28/2019 12:21 AM [facility] RDW-CV 15.5(H) 11.2 - 14.8 % 10/28/2019 12:21 AM [facility] MPV 10.9 9.3 - 12.8 fL 10/28/2019 12:21 AM [facility] nRBC Absolute 0.00 0 10? 3 /uL 10/28/2019 12:21 AM [facility] nRBC Auto 0.0 0 /100 WBC 10/28/2019 12:21 AM [facility] Blood BLOOD SPECIMEN / Unknown Venipuncture / Unknown 10/27/2019 11:57 PM BULL CHAIN OPERATOR 10/28/2019 12:05 AM BULL CHAIN OPERATOR Tyrone Solis MD LAB - HEMATOLOGY OR DERABLES Performing Organization Address City/State/[facility] Co de Phone Number [address] [phone] * (ABNORMAL) BLOOD GASES ARTERIAL (10/27/2019 11:57 PM BULL CHAIN OPERATOR) pH Arterial 7.35 7.35 - 7.45 10/28/2019 12:09 AM [facility] pCO2 Arterial 42 35 - 45 mmHg 10/28/2019 12:09 AM [facility] pO2 Arterial 170 mmHg 10/28/2019 12:09 AM [facility] HCO3 Arterial 22.6 22.0 - 26.0 mmol/L 10/28/2019 12:09 AM [facility] TCO2 Arterial 23.9(L) 25.0 - 29.0 mmol/L 10/28/2019 12:09 AM [facility] Base Excess Arterial -2.8(L) -2.0 - 2.0 mmol/L 10/28/2019 12:09 AM [facility] Hemoglobin Arterial 8.6(L) 12.0 - 15.5 g/dL 10/28/2019 12:09 AM [facility] Oxyhemoglobin Arterial 97.4 92.0 - 100.0 % 10/28/2019 12:09 AM [facility] Carboxyhemoglobin 0.2 0.0 - 3.0 % 10/28/2019 12:09 AM [facility] Methemoglobin 0.5 0.0 - 2.0 % 10/28/2019 12:09 AM [facility] FI O2 Arterial 40.0 % 10/28/2019 12:09 AM [facility] Blood, arterial ARTERIAL BLOOD SPECIMEN / Unknown Arterial Puncture / Unknown 10/27/2019 11:57 PM BULL CHAIN OPERATOR 10/28/2019 12:05 AM [facility] Tyrone Solis MD LAB - BLOOD GASES O RDERABLES Performing Organization Address City/State/[facility] Co de Phone Number [address] [phone] * (ABNORMAL) BASIC METABOLIC PANEL (CALCIUM TOTAL) (10/27/2019 11:57 PM BULL CHAIN OPERATOR) BUN 10 7 - 26 mg/dL 10/28/2019 12:37 AM [facility] Creatinine 0.8 0.6 - 1.2 mg/dL 10/28/2019 12:37 AM [facility] Sodium 137 136 - 145 mmol/L 10/28/2019 12:37 AM [facility] Potassium 3.9 3.5 - 4.5 mmol/L 10/28/2019 12:37 AM [facility] Chloride 110(H) 98 - 107 mmol/L 10/28/2019 12:37 AM [facility] CO2 21(L) 22 - 29 mmol/L 10/28/2019 12:37 AM [facility] Glucose 130(H) 70 - 115 mg/dL 10/28/2019 12:37 AM [facility] Calcium 7.7(L) 8.4 - 10.2 mg/dL 10/28/2019 12:37 AM [facility] Anion Gap 10 8 - 18 10/28/2019 12:37 AM [facility] BUN/Creatinine Ratio 13 7 - 23 10/28/2019 12:37 AM [facility] Osmolality Calculated 285 270 - 300 mOsm/kg 10/28/2019 12:37 AM [facility] eGFR >60 >60 mL/min/1.7 3 m2 10/28/2019 12:37 AM [facility] Blood BLOOD SPECIMEN / Unknown Venipuncture / Unknown 10/27/2019 11:57 PM [employer] 10/28/2019 12:05 AM [facility] Tyrone Solis MD LAB - CHEMISTRY ORD ERABLES Performing Organization Address [facility]/ZIP Co de Phone Number [address] [phone] * (ABNORMAL) PT-INR [facility] (10/27/2019 11:57 PM [employer] OPER[employer]) PT 16.4(H) 12.1 - 14.8 Seconds 10/28/2019 12:29 AM [facility] INR 1.4 See Comment 10/28/2019 12:29 AM [facility] Comment:The suggested therap eutic range for standard coumadin (warfarin) therapy is an INR of 2.0-3.0. For high-risk patients (Mechanical Mitral Valve Prosthesis, etc.), the suggested prophylactic therapeutic range is an INR of 2.5-3.5. Blood BLOOD SPECIMEN / Unknown Venipuncture / Unknown 10/27/2019 11:57 PM [employer] 10/28/2019 12:05 AM [employer] Nano Garces MD LAB - COAGULATI ON ORDERABLES [address] [phone] * PHOSPHORUS BLOOD (10/27/2019 11:57 PM [employer]) Phosphorus 3.5 2.3 - 4.7 mg/dL 10/28/2019 12:37 AM [facility] Blood BLOOD SPECIMEN / Unknown Venipuncture / Unknown 10/27/2019 11:57 PM [employer] 10/28/2019 12:05 AM [employer] Nano Garces MD LAB - CHEMISTRY ORDERABLES [address] [phone] * MAGNESIUM BLOOD (10/27/2019 11:57 PM [employer]PER[employer]) Magnesium 2.1 1.6 - 2.6 mg/dL 10/28/2019 12:37 AM [facility] Blood BLOOD SPECIMEN / Unknown Venipuncture / Unknown 10/27/2019 11:57 PM [employer] 10/28/2019 12:05 AM [employer] Nano Garces MD LAB - CHEMISTRY ORDERABLES Performing Organization Address [facility]/ZIP Co de Phone Number [address] [phone] * (ABNORMAL) BASIC METABOLIC PANEL (CALCIUM TOTAL) (10/27/2019 6:13 PM [employer]PER[employer]) BUN 12 7 - 26 mg/dL 10/27/2019 6:45 PM [facility] Creatinine 0.8 0.6 - 1.2 mg/dL 10/27/2019 6:45 PM [facility] Sodium 139 136 - 145 mmol/L 10/27/2019 6:45 PM [facility] Potassium 4.5 3.5 - 4.5 mmol/L 10/27/2019 6:45 PM [facility] Chloride 112(H) 98 - 107 mmol/L 10/27/2019 6:45 PM [facility] CO2 19(L) 22 - 29 mmol/L 10/27/2019 6:45 PM [facility] Glucose 112 70 - 115 mg/dL 10/27/2019 6:45 PM [facility] Calcium 8.0(L) 8.4 - 10.2 mg/dL 10/27/2019 6:45 PM [facility] Anion Gap 13 8 - 18 10/27/2019 6:45 PM [facility] BUN/Creatinine Ratio 15 7 - 23 10/27/2019 6:45 PM [facility] Osmolality Calculated 289 270 - 300 mOsm/kg 10/27/2019 6:45 PM [facility] eGFR >60 >60 mL/min/1.7 3 m2 10/27/2019 6:45 PM [facility] Blood BLOOD SPECIMEN / Unknown Venipuncture / Unknown 10/27/2019 6:13 PM [employer] 10/27/2019 6:16 PM [employer] Tyrone Solis MD LAB - CHEMISTRY ORD ERABLES [facility] [address] [phone] * (ABNORMAL) CBC W/O DIFFERENTIAL (10/27/2019 6:12 PM [employer]PER[employer]) WBC 9.7 3.5 - 10.5 10? 3 /uL 10/27/2019 6:24 PM [facility] RBC 2.93(L) 3.90 - 5.00 10? 6 /uL 10/27/2019 6:24 PM [facility] Hemoglobin 9.0(L) 12.0 - 15.5 g/dL 10/27/2019 6:24 PM [facility] Hematocrit 26.1(L) 35.0 - 45.0 % 10/27/2019 6:24 PM [facility] MCV 89.1 81.0 - 97.0 fL 10/27/2019 6:24 PM [facility] MCH 30.7 28.0 - 34.0 pg 10/27/2019 6:24 PM [facility] MCHC 34.5 32.0 - 36.0 g/dL 10/27/2019 6:24 PM [facility] Platelet Count 94(L) 150 - 400 10? 3 /uL 10/27/2019 6:24 PM [facility] RDW-SD 49.2 36.0 - 50.0 fL 10/27/2019 6:24 PM [facility] RDW-CV 15.0(H) 11.2 - 14.8 % 10/27/2019 6:24 PM [facility] MPV 10.9 9.3 - 12.8 fL 10/27/2019 6:24 PM [facility] nRBC Absolute 0.00 0 10? 3 /uL 10/27/2019 6:24 PM [facility] nRBC Auto 0.0 0 /100 WBC 10/27/2019 6:24 PM [facility] Blood BLOOD SPECIMEN / Unknown Venipuncture / Unknown 10/27/2019 6:12 PM [employer] 10/27/2019 6:16 PM [employer] Tyrone Solis MD LAB - HEMATOLOGY OR DERABLES [facility] [address] [phone] * (ABNORMAL) BLOOD GASES ARTERIAL (10/27/2019 6:12 PM BULL CHAIN OPERATOR) pH Arterial 7.35 7.35 - 7.45 10/27/2019 6:20 PM [facility] pCO2 Arterial 39 35 - 45 mmHg 10/27/2019 6:20 PM [facility] pO2 Arterial 175 mmHg 10/27/2019 6:20 PM [facility] HCO3 Arterial 20.9(L) 22.0 - 26.0 mmol/L 10/27/2019 6:20 PM [facility] TCO2 Arterial 22.1(L) 25.0 - 29.0 mmol/L 10/27/2019 6:20 PM [facility] Base Excess Arterial -4.2(L) -2.0 - 2.0 mmol/L 10/27/2019 6:20 PM [facility] Hemoglobin Arterial 9.3(L) 12.0 - 15.5 g/dL 10/27/2019 6:20 PM [facility] Oxyhemoglobin Arterial 97.6 92.0 - 100.0 % 10/27/2019 6:20 PM [facility] Carboxyhemoglobin 0.1 0.0 - 3.0 % 10/27/2019 6:20 PM [facility] Methemoglobin 0.2 0.0 - 2.0 % 10/27/2019 6:20 PM [facility] FI O2 Arterial 40.0 % 10/27/2019 6:20 PM BULL CHAIN OPERATOR [facility] Blood, arterial ARTERIAL BLOOD SPECIMEN / Unknown Arterial Puncture / Unknown 10/27/2019 6:12 PM BULL CHAIN OPERATOR 10/27/2019 6:16 PM BULL CHAIN OPERATOR Tyrone Solis MD LAB - BLOOD GASES O RDERABLES [address] [phone] * CT LUMBAR SPINE WO CONTRAST (10/27/2019 3:52 PM BULL CHAIN OPERATOR) Anatomical Region Laterality Modality Spine Computed Tomogra phy 10/27/2019 3:53 PM BULL CHAIN OPERATOR Impressions 10/27/2019 5:01 PM BULL CHAIN OPERATOR IMPRESSION: 1.No evidence of acute fracture in the thoracic or lumbar spine. 2.Please see the dedicated CT of the chest, abdomen pelvis of the current date for intrathoracic, intra-abdominal and intrapelvic findings. Dictated by Kalli Lake MD (vice president of nursing). I, Dr. TYLER LUCERO have personally reviewed and interpreted this examination/study. This report was electronically signed by TYLER LUCERO ??on 10/27/2019 5:01 PM . Narrative 10/27/2019 5:[address] THORACIC SPINE WO CONTRAST, CT LUMBAR [...] and pelvis [facility]. COMPARISON: No prior study [...] Dictated by Kalli Lake MD (vice president of nursing). Dr. TYLER Simmons have personally reviewed and interpreted this examination/study. This report was electronically signed by TYLER LUCERO on 10/27/2019 5:01PM . Tyrone Solis MD CT ORDERABLES * CT THORACIC SPINE WO CONTRAST (10/27/2019 3:52 PM BULL CHAIN OPERATOR) Anatomical Region Laterality Modality Spine Computed Tomogra phy 10/27/2019 3:53 PM BULL CHAIN OPERATOR Impressions 10/27/2019 5:01 PM BULL CHAIN OPERATOR IMPRESSION: 1.No evidence of acute fracture in the thoracic or lumbar spine. 2.Please see the dedicated CT of the chest, abdomen pelvis of the current date for intrathoracic, intra-abdominal and intrapelvic findings. Dictated by Kalli Lake MD (vice president of nursing). Dr. TYLER Simmons have personally reviewed and interpreted this examination/study. This report was electronically signed by TYLER LUCERO ??on 10/27/2019 5:01 PM . Narrative 10/27/2019 5:01 PM BULL CHAIN OPERATOR CT THORACIC SPINE WO CONTRAST, CT LUMBAR [...] and pelvis and [facility]. COMPARISON: No prior study [...] Dictated by Kalli Lake MD (vice president of nursing). IDr. TYLER have personally reviewed and interpreted this examination/study. This report was electronically signed by TYLER LUCERO on 10/27/2019 5:01PM . Tyrone Solis MD CT ORDERABLES * CT CHEST ABDOMEN PELVIS W CONT (10/27/2019 3:52 PM BULL CHAIN OPERATOR) Anatomical Region Laterality Modality Chest, Abdomen, Pelvis Computed Tomography 10/27/2019 4:42 PM BULL CHAIN OPERATOR Impressions 10/27/2019 5:19 PM BULL CHAIN OPERATOR Impression: 1.Postoperative changes associated with midline laparotomy, [...] 5:19 PM . Narrative 10/27/2019 5:19 PM BULL CHAIN OPERATOR EXAMINATION: Computed tomography (CT) of the chest, [...] Solis MD CT ORDERABLES * (ABNORMAL) PT-INR [facility] (10/27/2019 2:40 PM BULL CHAIN OPERATOR) PT 15.3(H) 12.1 - 14.8 Seconds 10/27/2019 2:57 PM BULL CHAIN OPERATOR [facility] INR 1.3 See Comment 10/27/2019 2:57 PM BULL CHAIN OPERATOR [facility] Comment:The suggested therap eutic range for standard coumadin (warfarin) therapy is an INR of 2.0-3.0. For high-risk patients (Mechanical Mitral Valve Prosthesis, etc.), the suggested prophylactic therapeutic range is an INR of 2.5-3.5. Blood BLOOD SPECIMEN / Unknown Venipuncture / Unknown 10/27/2019 2:40 PM BULL CHAIN OPERATOR 10/27/2019 2:46 PM BULL CHAIN OPERATOR Kapil Gonsalves MD LAB - COAGULATION OR DERABLES [address] [phone] * PHOSPHORUS BLOOD (10/27/2019 2:40 PM BULL CHAIN OPERATOR) Phosphorus 2.8 2.3 - 4.7 mg/dL 10/27/2019 3:12 PM BULL CHAIN OPERATOR [facility] Blood BLOOD SPECIMEN / Unknown Venipuncture / Unknown 10/27/2019 2:40 PM BULL CHAIN OPERATOR 10/27/2019 2:46 PM BULL CHAIN OPERATOR Kapil Gonsalves MD LAB - CHEMISTRY ANGELA JONES [address] [phone] * MAGNESIUM BLOOD (10/27/2019 2:40 PM BULL CHAIN OPERATOR) Magnesium 2.3 1.6 - 2.6 mg/dL 10/27/2019 3:12 PM [facility] Blood BLOOD SPECIMEN / Unknown Venipuncture / Unknown 10/27/2019 2:40 PM BULL CHAIN OPERATOR 10/27/2019 2:46 PM BULL CHAIN OPERATOR Kapil Gonsalves MD LAB - CHEMISTRY ANGELA JONES Performing Organization Address [facility]/ZIP Co de Phone Number [address] [phone] * (ABNORMAL) BASIC METABOLIC PANEL (CALCIUM TOTAL) (10/27/2019 2:40 PM BULL CHAIN OPERATOR) BUN 12 7 - 26 mg/dL 10/27/2019 3:12 PM [facility] Creatinine 0.8 0.6 - 1.2 mg/dL 10/27/2019 3:12 PM [facility] Sodium 141 136 - 145 mmol/L 10/27/2019 3:12 PM [facility] Potassium 4.7(H) 3.5 - 4.5 mmol/L 10/27/2019 3:12 PM [facility] Chloride 113(H) 98 - 107 mmol/L 10/27/2019 3:12 PM [facility] CO2 22 22 - 29 mmol/L 10/27/2019 3:12 PM [facility] Glucose 116(H) 70 - 115 mg/dL 10/27/2019 3:12 PM [facility] Calcium 8.0(L) 8.4 - 10.2 mg/dL 10/27/2019 3:12 PM [facility] Anion Gap 11 8 - 18 10/27/2019 3:12 PM [facility] BUN/Creatinine Ratio 15 7 - 23 10/27/2019 3:12 PM [facility] Osmolality Calculated 293 270 - 300 mOsm/kg 10/27/2019 3:12 PM [facility] eGFR >60 >60 mL/min/1.7 3 m2 10/27/2019 3:12 PM [facility] Blood BLOOD SPECIMEN / Unknown Venipuncture / Unknown 10/27/2019 2:40 PM BULL CHAIN OPERATOR 10/27/2019 2:46 PM BULL CHAIN OPERATOR Kapil Gonsalves MD LAB - CHEMISTRY ANGELA JONES [address] [phone] * (ABNORMAL) CBC W/O DIFFERENTIAL (10/27/2019 2:40 PM BULL CHAIN OPERATOR) WBC 8.3 3.5 - 10.5 10? 3 /uL 10/27/2019 2:55 PM [facility] RBC 2.86(L) 3.90 - 5.00 10? 6 /uL 10/27/2019 2:55 PM [facility] Comment:All CBC parameters h ave been checked. Hemoglobin 8.8(L) 12.0 - 15.5 g/dL 10/27/2019 2:55 PM [facility] Comment:Confirmed by repeat analysis. Hematocrit 25.6(L) 35.0 - 45.0 % 10/27/2019 2:55 PM [facility] Comment:Confirmed by repeat analysis. MCV 89.5 81.0 - 97.0 fL 10/27/2019 2:55 PM [facility] MCH 30.8 28.0 - 34.0 pg 10/27/2019 2:55 PM [facility] MCHC 34.4 32.0 - 36.0 g/dL 10/27/2019 2:55 PM [facility] Platelet Count 87(L) 150 - 400 10? 3 /uL 10/27/2019 2:55 PM [facility] Comment:Checked with the pre vious result. RDW-SD 47.0 36.0 - 50.0 fL 10/27/2019 2:55 PM [facility] RDW-CV 14.3 11.2 - 14.8 % 10/27/2019 2:55 PM [facility] MPV 10.9 9.3 - 12.8 fL 10/27/2019 2:55 PM [facility] nRBC Absolute 0.00 0 10? 3 /uL 10/27/2019 2:55 PM [facility] nRBC Auto 0.0 0 /100 WBC 10/27/2019 2:55 PM [facility] Blood BLOOD SPECIMEN / Unknown Venipuncture / Unknown 10/27/2019 2:40 PM BULL CHAIN OPERATOR 10/27/2019 2:46 PM BULL CHAIN OPERATOR Kapil Gonsalves MD LAB - HEMATOLOGY ORD ERABLES [address] [phone] * (ABNORMAL) BLOOD GASES ARTERIAL (10/27/2019 2:40 PM BULL CHAIN OPERATOR) pH Arterial 7.37 7.35 - 7.45 10/27/2019 2:48 PM [facility] pCO2 Arterial 36 35 - 45 mmHg 10/27/2019 2:48 PM [facility] pO2 Arterial 193 mmHg 10/27/2019 2:48 PM [facility] HCO3 Arterial 20.2(L) 22.0 - 26.0 mmol/L 10/27/2019 2:48 PM [facility] TCO2 Arterial 21.3(L) 25.0 - 29.0 mmol/L 10/27/2019 2:48 PM [facility] Base Excess Arterial -4.6(L) -2.0 - 2.0 mmol/L 10/27/2019 2:48 PM [facility] Hemoglobin Arterial 8.8(L) 12.0 - 15.5 g/dL 10/27/2019 2:48 PM [facility] Oxyhemoglobin Arterial 97.6 92.0 - 100.0 % 10/27/2019 2:48 PM [facility] Carboxyhemoglobin 0.3 0.0 - 3.0 % 10/27/2019 2:48 PM [facility] Methemoglobin 0.6 0.0 - 2.0 % 10/27/2019 2:48 PM [facility] FI O2 Arterial 40.0 % 10/27/2019 2:48 PM [facility] Blood, arterial ARTERIAL BLOOD SPECIMEN / Unknown Arterial Puncture / Unknown 10/27/2019 2:40 PM BULL CHAIN OPERATOR 10/27/2019 2:46 PM BULL CHAIN OPERATOR Nano Garces MD LAB - BLOOD GAS ES ORDERABLES [facility] [address] [place] [address] * TRANSFUSE RED BLOOD CELL LEUKOREDUCED UNIT(S) (10/27/2019 1:27 PM BULL CHAIN OPERATOR) Kapil Gonsalves MD NURSING - BLOOD PROD TRANSFUSION * TRANSFUSE RED BLOOD CELL LEUKOREDUCED UNIT(S) (10/27/2019 1:03 PM BULL CHAIN OPERATOR) Kapil Gonsalves MD NURSING - BLOOD PROD TRANSFUSION * TRANSFUSE FRESH FROZEN PLASMA UNIT(S) (10/27/2019 11:26 AM BULL CHAIN OPERATOR) Kapil Gonsalves MD NURSING - BLOOD PROD TRANSFUSION * TRANSFUSE FRESH FROZEN PLASMA UNIT(S), 1 Units (10/27/2019 11:26 AM BULL CHAIN OPERATOR) Kapil Gonsalves MD NURSING - BLOOD PROD TRANSFUSION * (ABNORMAL) DIFFERENTIAL MANUAL (10/27/2019 9:55 AM BULL CHAIN OPERATOR) WBC (corrected for NRBC) 7.5 10? 3 /uL 10/27/2019 10:36 AM [facility] Total Cell Count 100 10/27/2019 10:36 AM [facility] Neutrophils Absolute Manual 6.30 1.60 - 7.00 10? 3 /uL 10/27/2019 10:36 AM [facility] Comment:(BANDS+SEGS) x WBC = NEUT # (ANC) Lymphocyte Absolute Manual 0.75(L) 0.80 - 2.90 10? 3 /uL 10/27/2019 10:36 AM [facility] Monocytes Absolute Manual 0.45 0.14 - 0.66 10? 3 /uL 10/27/2019 10:36 AM [facility] Band % Manual 14(H) 0 - 10 % 10/27/2019 10:36 AM [facility] Neutrophil % Manual 70(H) 30 - 60 % 10/27/2019 10:36 AM [facility] Lymphocyte % Manual 10(L) 20 - 45 % 10/27/2019 10:36 AM [facility] Monocytes % Manual 6 2 - 10 % 10/27/2019 10:36 AM [facility] Platelet Estimate Decreased( A) Adequate 10/27/2019 10:36 AM [facility] RBC Morphology Normal 10/27/2019 10:36 AM [facility] Blood BLOOD SPECIMEN / Unknown Venipuncture / Unknown 10/27/2019 9:55 AM BULL CHAIN OPERATOR 10/27/2019 10:03 AM BULL CHAIN OPERATOR Sam Landry MD LAB - HEMATOLOGY OR DERABLES Performing Organization Address City/State/[facility] Co de Phone Number [address] [phone] * (ABNORMAL) BLOOD GASES ARTERIAL (10/27/2019 9:55 AM BULL CHAIN OPERATOR) pH Arterial 7.35 7.35 - 7.45 10/27/2019 10:06 AM [facility] pCO2 Arterial 37 35 - 45 mmHg 10/27/2019 10:06 AM [facility] pO2 Arterial 192 mmHg 10/27/2019 10:06 AM [facility] HCO3 Arterial 20.1(L) 22.0 - 26.0 mmol/L 10/27/2019 10:06 AM [facility] TCO2 Arterial 21.2(L) 25.0 - 29.0 mmol/L 10/27/2019 10:06 AM [facility] Base Excess Arterial -5.0(L) -2.0 - 2.0 mmol/L 10/27/2019 10:06 AM [facility] Hemoglobin Arterial 6.2(L) 12.0 - 15.5 g/dL 10/27/2019 10:06 AM [facility] Oxyhemoglobin Arterial 97.0 92.0 - 100.0 % 10/27/2019 10:06 AM [facility] Carboxyhemoglobin 0.3 0.0 - 3.0 % 10/27/2019 10:06 AM [facility] Methemoglobin 0.9 0.0 - 2.0 % 10/27/2019 10:06 AM [facility] FI O2 Arterial 40.0 % 10/27/2019 10:06 AM [facility] Blood, arterial ARTERIAL BLOOD SPECIMEN / Unknown Arterial Puncture / Unknown 10/27/2019 9:55 AM BULL CHAIN OPERATOR 10/27/2019 10:03 AM BULL CHAIN OPERATOR Sam Landry MD LAB - BLOOD GASES O RDERABLES [facility] [address] [phone] * (ABNORMAL) CBC W AUTO DIFFERENTIAL (10/27/2019 9:55 AM BULL CHAIN OPERATOR) WBC 7.5 3.5 - 10.5 10? 3 /uL 10/27/2019 10:36 AM [facility] RBC 2.08(L) 3.90 - 5.00 10? 6 /uL 10/27/2019 10:36 AM [facility] Hemoglobin 6.5(L) 12.0 - 15.5 g/dL 10/27/2019 10:36 AM [facility] Comment:All CBC parameters h ave been checked. Hematocrit 19.4(L) 35.0 - 45.0 % 10/27/2019 10:36 AM [facility] MCV 93.3 81.0 - 97.0 fL 10/27/2019 10:36 AM [facility] MCH 31.3 28.0 - 34.0 pg 10/27/2019 10:36 AM [facility] MCHC 33.5 32.0 - 36.0 g/dL 10/27/2019 10:36 AM [facility] Platelet Count 94(L) 150 - 400 10? 3 /uL 10/27/2019 10:36 AM [facility] Comment: Checked by peripheral smear. This is an appended report. ??These results have been appended to a previously preliminary verified report. RDW-SD 46.2 36.0 - 50.0 fL 10/27/2019 10:36 AM [facility] RDW-CV 13.6 11.2 - 14.8 % 10/27/2019 10:36 AM [facility] MPV 10.7 9.3 - 12.8 fL 10/27/2019 10:36 AM [facility] nRBC Absolute 0.02(H) 0 10? 3 /uL 10/27/2019 10:36 AM [facility] nRBC Auto 0.3(H) 0 /100 WBC 10/27/2019 10:36 AM [facility] Blood BLOOD SPECIMEN / Unknown Venipuncture / Unknown 10/27/2019 9:55 AM [facility] 10/27/2019 10:03 AM [facility] Sam Landry MD LAB - HEMATOLOGY OR DERABLES Performing Organization Address City/State/[facility] Co de Phone Number [facility] [address] [place] [address] * (ABNORMAL) BASIC METABOLIC PANEL (CALCIUM TOTAL) (10/27/2019 9:55 AM BULL CHAIN OPERATOR) BUN 14 7 - 26 mg/dL 10/27/2019 10:34 AM [facility] Creatinine 0.8 0.6 - 1.2 mg/dL 10/27/2019 10:34 AM [facility] Sodium 141 136 - 145 mmol/L 10/27/2019 10:34 AM [facility] Potassium 3.8 3.5 - 4.5 mmol/L 10/27/2019 10:34 AM [facility] Chloride 110(H) 98 - 107 mmol/L 10/27/2019 10:34 AM [facility] CO2 21(L) 22 - 29 mmol/L 10/27/2019 10:34 AM [facility] Glucose 142(H) 70 - 115 mg/dL 10/27/2019 10:34 AM [facility] Calcium 8.7 8.4 - 10.2 mg/dL 10/27/2019 10:34 AM [facility] Anion Gap 14 8 - 18 10/27/2019 10:34 AM [facility] BUN/Creatinine Ratio 18 7 - 23 10/27/2019 10:34 AM [facility] Osmolality Calculated 295 270 - 300 mOsm/kg 10/27/2019 10:34 AM [facility] eGFR >60 >60 mL/min/1.7 3 m2 10/27/2019 10:34 AM [facility] Blood BLOOD SPECIMEN / Unknown Venipuncture / Unknown 10/27/2019 9:55 AM BULL CHAIN OPERATOR 10/27/2019 10:03 AM [facility] Sam Landry MD LAB - CHEMISTRY ORD ERABLES Performing Organization Address [facility]/ZIP Co de Phone Number [address] [phone] * PTT [facility] (10/27/2019 5:42 AM [facility]) APTT 34.7 23.0 - 38.4 Seconds 10/27/2019 6:14 AM [facility] Comment:Suggested therapeuti c range for full dose I.V. unfractionated heparin therapy for venous thromboembolism is 71 to 109 seconds. Blood BLOOD SPECIMEN / Unknown Venipuncture / Unknown 10/27/2019 5:42 AM BULL CHAIN OPERATOR 10/27/2019 5:50 AM [facility] Rio Bhakta MD LAB - COAGULATION OR DERABLES Performing Organization Address [facility] Co de Phone Number [address] [phone] * (ABNORMAL) PT-INR [facility] (10/27/2019 5:42 AM [facility]) PT 18.6(H) 12.1 - 14.8 Seconds 10/27/2019 6:13 AM [facility] INR 1.6 See Comment 10/27/2019 6:13 AM [facility] Comment:The suggested therap eutic range for standard coumadin (warfarin) therapy is an INR of 2.0-3.0. For high-risk patients (Mechanical Mitral Valve Prosthesis, etc.), the suggested prophylactic therapeutic range is an INR of 2.5-3.5. Blood BLOOD SPECIMEN / Unknown Venipuncture / Unknown 10/27/2019 5:42 AM BULL CHAIN OPERATOR 10/27/2019 5:50 AM BULL CHAIN OPERATOR Rio Bhakta MD LAB - COAGULATION OR DERABLES [address] [phone] * (ABNORMAL) PHOSPHORUS BLOOD (10/27/2019 5:42 AM BULL CHAIN OPERATOR) Phosphorus 5.1(H) 2.3 - 4.7 mg/dL 10/27/2019 6:09 AM [facility] Blood BLOOD SPECIMEN / Unknown Venipuncture / Unknown 10/27/2019 5:42 AM BULL CHAIN OPERATOR 10/27/2019 5:50 AM BULL CHAIN OPERATOR Rio Bhakta MD LAB - CHEMISTRY ORDE RABLES Performing Organization Address [facility]/ZIP Co de Phone Number [address] [phone] * (ABNORMAL) BLOOD GASES ARTERIAL (10/27/2019 4:12 AM BULL CHAIN OPERATOR) pH Arterial 7.30(L) 7.35 - 7.45 10/27/2019 4:21 AM [facility] pCO2 Arterial 45 35 - 45 mmHg 10/27/2019 4:21 AM [facility] pO2 Arterial 205 mmHg 10/27/2019 4:21 AM [facility] HCO3 Arterial 21.5(L) 22.0 - 26.0 mmol/L 10/27/2019 4:21 AM [facility] TCO2 Arterial 22.9(L) 25.0 - 29.0 mmol/L 10/27/2019 4:21 AM [facility] Base Excess Arterial -4.7(L) -2.0 - 2.0 mmol/L 10/27/2019 4:21 AM [facility] Hemoglobin Arterial 9.4(L) 12.0 - 15.5 g/dL 10/27/2019 4:21 AM [facility] Oxyhemoglobin Arterial 97.8 92.0 - 100.0 % 10/27/2019 4:21 AM [facility] Carboxyhemoglobin 0.3 0.0 - 3.0 % 10/27/2019 4:21 AM [facility] Methemoglobin 0.5 0.0 - 2.0 % 10/27/2019 4:21 AM [facility] FI O2 Arterial 50.0 % 10/27/2019 4:21 AM [facility] Blood, arterial ARTERIAL BLOOD SPECIMEN / Unknown Arterial Puncture / Unknown 10/27/2019 4:12 AM BULL CHAIN OPERATOR 10/27/2019 4:16 AM BULL CHAIN OPERATOR Rio Bhakta MD LAB - BLOOD GASES OR DERABLES Performing Organization Address City/[facility]/ZIP Co de Phone Number [address] [phone] * MAGNESIUM BLOOD (10/27/2019 4:12 AM BULL CHAIN OPERATOR) Magnesium 1.7 1.6 - 2.6 mg/dL 10/27/2019 4:37 AM [facility] Blood BLOOD SPECIMEN / Unknown Venipuncture / Unknown 10/27/2019 4:12 AM BULL CHAIN OPERATOR 10/27/2019 4:16 AM BULL CHAIN OPERATOR Rio Bhakta MD LAB - CHEMISTRY ORDE RABLES Performing Organization Address City/[facility]/[place] [address], [facility] [phone] * (ABNORMAL) CBC W AUTO DIFFERENTIAL (10/27/2019 4:12 AM BULL CHAIN OPERATOR) WBC 7.3 3.5 - 10.5 10? 3 /uL 10/27/2019 4:30 AM [facility] Comment:All CBC parameters h ave been checked. RBC 2.93(L) 3.90 - 5.00 10? 6 /uL 10/27/2019 4:30 AM [facility] Hemoglobin 9.3(L) 12.0 - 15.5 g/dL 10/27/2019 4:30 AM [facility] Hematocrit 27.6(L) 35.0 - 45.0 % 10/27/2019 4:30 AM [facility] MCV 94.2 81.0 - 97.0 fL 10/27/2019 4:30 AM [facility] MCH 31.7 28.0 - 34.0 pg 10/27/2019 4:30 AM [facility] MCHC 33.7 32.0 - 36.0 g/dL 10/27/2019 4:30 AM [facility] Platelet Count 157 150 - 400 10? 3 /uL 10/27/2019 4:30 AM [facility] RDW-SD 44.5 36.0 - 50.0 fL 10/27/2019 4:30 AM [facility] RDW-CV 12.9 11.2 - 14.8 % 10/27/2019 4:30 AM [facility] MPV 11.1 9.3 - 12.8 fL 10/27/2019 4:30 AM [facility] nRBC Absolute 0.00 0 10? 3 /uL 10/27/2019 4:30 AM [facility] nRBC Auto 0.0 0 /100 WBC 10/27/2019 4:30 AM [facility] Neutrophils % 60.7 35.0 - 70.0 % 10/27/2019 4:30 AM [facility] Lymphocytes % 33.0 19.7 - 55.1 % 10/27/2019 4:30 AM [facility] Monocytes % 5.2 3.0 - 15.0 % 10/27/2019 4:30 AM [facility] Eosinophils % 0.4 0.0 - 6.0 % 10/27/2019 4:30 AM [facility] Basophil % 0.3 0.0 - 1.5 % 10/27/2019 4:30 AM [facility] Neutrophils Absolute 4.4 1.6 - 7.0 10? 3 /uL 10/27/2019 4:30 AM [facility] Lymphocyte Absolute 2.4 0.8 - 2.9 10? 3 /uL 10/27/2019 4:30 AM [facility] Monocytes Absolute 0.38 0.14 - 0.66 10? 3 /uL 10/27/2019 4:30 AM [facility] Eosinophils Absolute 0.03 0.00 - 0.45 10? 3 /uL 10/27/2019 4:30 AM [facility] Basophils Absolute 0.02 0.00 - 0.06 10? 3 /uL 10/27/2019 4:30 AM [facility] Immature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
--- OUTSIDE RECORDS SUMMARY | 2024-08-30 03:00 | XMS_ITS | Encounter Summary ---
Author Organization [facility] Address [address] [facility] [place] [address] Care Team Providers Care Sewer Name Role Phone Laura Reid MD Primary Care Provider [phone] Encounter Details Date Type Department Care Team (Latest Contact Info) Description 09/14/2019 1:58 PM CUSTOMER SERVICE REPRESENTATIVE TELLER - 09/14/2019 11:59 PM [facility] [address] [place] [address] Albert Huddleston MD [address] [place] [phone] Discharge Disposition: Home or Self Care Social History Tobacco Use Types Packs/Day Years Used Date Smoking Tobacco: Every Day Cigarettes 0.5 1 Smokeless Tobacco: Never Tobacco Cessation:Ready to Q uit: Yes; Counseling Given: Yes Alcohol Use Standard Drinks/Week [...] - - Weight 66.7 kg (147 lb) 09/14/2019 2:09 PM CUSTOMER SERVICE REPRESENTATIVE TELLER Height 157.5 cm (5' 2 ) 09/14/2019 2:09 PM CUSTOMER SERVICE REPRESENTATIVE TELLER Body Mass Index 26.89 09/14/2019 2:09 PM CUSTOMER SERVICE REPRESENTATIVE TELLER documented in this encounter Medications at Time of Discharge Medication Sig Dispensed Refills Start Date End Date etonogestrel (NEXPLANON) 68 MG implant 68 mg by Subdermal route as directed ibuprofen (MOTRIN) 600 MG tablet Take 1 tablet by mouth Every 6 Hours (03,09,15,21) 40 tablet 09/19/2019 multivitamin with iron (ONE A DAY WITH IRON) tablet Take 1 Tab by mouth once daily 02/08/2016 amoxicillin (AMOXIL) 500 MG capsule Take 500 mg by mouth 3 times daily 03/18/2018 09/19/2019 DiphenhydrAMINE HCl (ALLERGY MED PO) Take 1 Tab by mouth once daily as needed 09/19/2019 drospirenone-ethinyl estradiol (VESTURA) 3-0.02 MG tablet Take 1 Tab by mouth once daily 09/19/2019 lamoTRIgine (LAMICTAL) 200 MG tablet Take 1 Tab by mouth once daily 12/16/2015 09/19/2019 oxyCODONE-acetaminophe n (PERCOCET) 5-325 MG tablet Take 1 tablet by mouth every 6 hours as needed for Pain 20 tablet 09/19/2019 11/09/2019 Pseudoephedrine HCl (SUDAFED 24 HOUR PO) Take 1 Tab by mouth once daily as needed 09/19/2019 documented as of this encounter Plan of Treatment Not on file documented as of this encounter Procedures Procedure Name Priority Date/Time Associated Diagnosis Comments TYPE + SCREEN PANEL STAT 09/14/2019 2 :09 PM CUSTOMER SERVICE REPRESENTATIVE TELLER Pre-op testing CBC W AUTO DIFFERENTIAL STAT 09/14/2019 2:09 PM CUSTOMER SERVICE REPRESENTATIVE TELLER Pre-op testing COMPREHENSIVE METABOLIC PANEL STAT 09/14/2019 2:09 PM CUSTOMER SERVICE REPRESENTATIVE TELLER Pre-op testing documented in this encounter Results * TYPE + SCREEN PANEL (09/14/2019 2:09 PM CUSTOMER SERVICE REPRESENTATIVE TELLER) ABO O 09/14/2019 3:10 PM [facility] Rh Type Positive 09/14/2019 3:10 PM [facility] Comment:History checked. Col lect retype. Antibody Screen Negative 09/14/2019 3:10 PM [facility] Blood Bank BLOOD SPECIMEN / Unknown Venipuncture / Unknown 09/14/2019 2:09 PM CUSTOMER SERVICE REPRESENTATIVE TELLER 09/14/2019 2:35 PM [facility] Albert Huddleston MD LAB - BLOOD BANK O [facility] [address] [phone] * (ABNORMAL) COMPREHENSIVE METABOLIC PANEL (09/14/2019 2:09 PM CUSTOMER SERVICE REPRESENTATIVE TELLER) Glucose 89 70 - 105 mg/dL 09/14/2019 3:18 PM [facility] Sodium 138 136 - 145 mmol/L 09/14/2019 3:18 PM [facility] Potassium 3.9 3.5 - 5.1 mmol/L 09/14/2019 3:18 PM [facility] Chloride 107 98 - 107 mmol/L 09/14/2019 3:18 PM [facility] CO2 22(L) 23 - 31 mmol/L 09/14/2019 3:18 PM [facility] Calcium 9.0 8.4 - 10.4 mg/dL 09/14/2019 3:18 PM [facility] Anion Gap 9 8 - 16 mmol/L 09/14/2019 3:18 PM [facility] BUN 14 7 - 18.7 mg/dL 09/14/2019 3:18 PM [facility] Creatinine 0.76 0.57 - 1.11 mg/dL 09/14/2019 3:18 PM [facility] Alkaline Phosphatase 55 40 - 150 U/L 09/14/2019 3:18 PM [facility] ALT 12 0 - 61 U/L 09/14/2019 3:18 PM [facility] AST 16 5 - 34 U/L 09/14/2019 3:18 PM [facility] Protein Total 7.3 6.4 - 8.3 gm/dL 09/14/2019 3:18 PM [facility] Albumin 4.4 3.5 - 5.2 gm/dL 09/14/2019 3:18 PM [facility] Bilirubin Total 0.6 0.2 - 1.0 mg/dL 09/14/2019 3:18 PM [facility] eGFR by MDRD >60 >60 mL/min/1.7 3m2 09/14/2019 3:18 PM CUSTOMER SERVICE REPRESENTATIVE TELLER [facility] eGFR by MDRD >60 >60 mL/min/1.7 3m2 09/14/2019 3:18 PM [facility] Blood BLOOD SPECIMEN / Unknown Venipuncture / Unknown 09/14/2019 2:09 PM CUSTOMER SERVICE REPRESENTATIVE TELLER 09/14/2019 2:35 PM CUSTOMER SERVICE REPRESENTATIVE TELLER Albert Huddleston MD LAB - CHEMISTRY OR DERABLES [facility] [address] [place] [address] * (ABNORMAL) CBC W AUTO DIFFERENTIAL (09/14/2019 2:09 PM CUSTOMER SERVICE REPRESENTATIVE TELLER) WBC 8.6 4.4 - 10.7 x10E9/L 09/14/2019 2:45 PM [facility] WBC Corrected 09/14/2019 2:45 PM [facility] RBC 4.02 3.80 - 5.20 x10E12/L 09/14/2019 2:45 PM [facility] Hemoglobin 12.7 12.0 - 15.6 gm/dL 09/14/2019 2:45 PM [facility] Hematocrit 39.5 35.9 - 45.5 % 09/14/2019 2:45 PM [facility] MCV 98.3 80.7 - 98.3 fl 09/14/2019 2:45 PM [facility] MCH 31.6 26.7 - 34.0 pg 09/14/2019 2:45 PM [facility] MCHC 32.2 30.8 - 35.9 gm/dL 09/14/2019 2:45 PM [facility] Platelet Count 282 153 - 416 x10E9/L 09/14/2019 2:45 PM [facility] RDW-CV 11.8(L) 12.1 - 14.9 % 09/14/2019 2:45 PM CUSTOMER SERVICE REPRESENTATIVE TELLER [facility] MPV 10.6 9.4 - 12.9 fl 09/14/2019 2:45 PM CUSTOMER SERVICE REPRESENTATIVE TELLER [facility] Neutrophils % 53.5 44.0 - 73.0 % 09/14/2019 2:45 PM CUSTOMER SERVICE REPRESENTATIVE TELLER [facility] Lymphocytes % 36.8 20.0 - 43.0 % 09/14/2019 2:45 PM CUSTOMER SERVICE REPRESENTATIVE TELLER [facility] Monocytes % 7.6 5.0 - 13.0 % 09/14/2019 2:45 PM [facility] Eosinophils % 1.4 0.0 - 6.0 % 09/14/2019 2:45 PM CUSTOMER SERVICE REPRESENTATIVE TELLER [facility] Basophils % 0.6 0.0 - 2.0 % 09/14/2019 2:45 PM [facility] Immature Granulocytes 0.1 0 - 1 % 09/14/2019 2:45 PM CUSTOMER SERVICE REPRESENTATIVE TELLER [facility] Neutrophil Absolute 4.58 2.01 - 7.14 x10E9/L 09/14/2019 2:45 PM [facility] Lymphocytes Absolute 3.15 1.07 - 3.94 x10E9/L 09/14/2019 2:45 PM CUSTOMER SERVICE REPRESENTATIVE TELLER [facility] Monocytes Absolute 0.65 0.26 - 1.07 x10E9/L 09/14/2019 2:45 PM [facility] Eosinophils Absolute 0.12 0 - 0.47 x10E9/L 09/14/2019 2:45 PM CUSTOMER SERVICE REPRESENTATIVE TELLER [facility] Basophils Absolute 0.05 0 - 0.08 x10E9/L 09/14/2019 2:45 PM [facility] Immature Granulocytes Absolute 0.01 0.00 - 0.06 x10E9/L 09/14/2019 2:45 PM [facility] nRBC Auto 0 /100 WBC 09/14/2019 2:45 PM [facility] Blood BLOOD SPECIMEN / Unknown Venipuncture / Unknown 09/14/2019 2:09 PM CUSTOMER SERVICE REPRESENTATIVE TELLER 09/14/2019 2:35 PM CUSTOMER SERVICE REPRESENTATIVE TELLER Albert Huddleston MD LAB - HEMATOLOGY O RDERABLES [facility] [address] [place] [address] documented in this encounter Visit Diagnoses Diagnosis Pre-op testing- Primary Preoperative examination, unspecified documented in this encounter Care Teams Sewer Relationship Specialty Start Date End Date Laura Reid MD PCP - General Pediatrics 07/06/15 10/27/19 documented as of this encounter
--- OUTSIDE RECORDS SUMMARY | 2024-08-30 03:00 | XMS_ITS | Encounter Summary ---
Author Organization [facility] Address [address] [place] [address] Care Team Providers Care Barber Tool Sharpener Name Role Phone Laura Reid MD Primary Care Provider [phone] Reason for Visit * Reason Onset Date Comments Treatment 06/29/2019 Encounter Details Date Type Department Care Team (Late st Contact Info) Description 06/29/2019 Telephone [facility] [address] [place] [address] Albert Huddleston MD [address] [place] [address] Treatment Social History Tobacco Use Types Packs/Day Years [...] encounter Miscellaneous Notes * Telephone Encounter - Ute Wallace RN - 06/29/2019 2:54 PM CST Advised health dept that zithromax 1g sent 05/27/19. Denies further needs. D STATION MANAGER * Telephone Encounter - Trixie Hauser - 06/29/2019 9:40 AM CST Archana from [facility] Dpt called wanting treatment information for pt, cb# [phone] Direct Line D STATION MANAGER documented in this encounter Plan of Treatment Not on file documented as of this encounter Visit Diagnoses Not on filedocumented in this encounter Care Teams Barber Tool Sharpener Relationship Specialty Start Date End Date Laura Reid MD PCP - General Pediatrics 07/06/15 10/27/19 documented as of this encounter
--- OUTSIDE RECORDS SUMMARY | 2024-08-30 03:00 | XMS_ITS | Encounter Summary ---
Author Organization [facility] Address [address] [facility] [place] [address] Care Team Providers Care Director Corporate Communications Name Role Phone Laura Reid MD Primary Care Provider [phone] Reason for Visit * Reason Comments Ultrasound Encounter Details Date Type Department Care Team (Latest Contact Info) Description 05/27/2019 3:15 PM CDT Procedure visit [facility] Gynecology [facility] [address] [place] [address] Dysmenorrhea ; Chronic pelvic pain in female; Dyschezia; Dyspareunia in female; Menorrhagia with irregular cycle; Metrorrhagia Social History Tobacco Use Types Packs/Day Years Used Date Smoking Tobacco: Every Day Smokeless Tobacco: Never Alcohol Use Standard Drinks/Week Comments No 0 (1 standard drink = 0.6 oz pur e alcohol) Sex and Gender Information Value Date Recorded Sex Assigned at Not on file Gender Identity Not on file Sexual Orientation Not on file documented as of this encounter Procedure Notes * Rasheeda Hamilton - 05/27/2019 4:29 PM CDTAssociated Order(s): US TRANSVAGINAL NON OB Procedure(s): US TRANSVAGINAL NON OB Pre-Procedure Diagnose(s): Chronic pelvic pain in female; Dyschezia; Dysmenorrhea; Dyspareunia in female; Menorrhagia with irregular cycle; Metrorrhagia Documentation in digisonics. documented in this encounter Plan of Treatment Not on file documented as of this encounter Procedures Procedure Name Priority Date/Time Associated Diagnosis Comments US TRANSVAGINAL NON OB Routine 05/27/2019 4:29 PM CDT Chronic pelvic pain in female Dyschezia Dysmenorrhea Dyspareunia in female Menorrhagia with irregular cycle Metrorrhagia documented in this encounter Results * US TRANSVAGINAL NON OB (05/27/2019 4:29 PM CDT) Anatomical Region Laterality Modality Abdomen Ultrasound Narrative 05/27/2019 4:29 PM CDT Rasheeda Hamilton ? 05/27/2019 ??4:29 PM Documentation in digisonics. Albert Huddleston MD US ORDERABLES documented in this encounter Visit Diagnoses Diagnosis Dysmenorrhea- Primary Chronic pelvic pain in female Unspecified symptom associated with female genital organs Dyschezia Unspecified constipation Dyspareunia in female Menorrhagia with irregular cycle Excessive or frequent menstruation Metrorrhagia documented in this encounter Care Teams Director Corporate Communications Relationship Specialty Start Date End Date Laura Reid MD PCP - General Pediatrics 07/06/15 10/27/19 documented as of this encounter
--- OUTSIDE RECORDS SUMMARY | 2024-08-30 03:00 | XMS_ITS | Encounter Summary ---
Author Organization [facility] Address [address] [place] [address] Care Team Providers Care Account Planner Name Role Phone Laura Reid MD Primary Care Provider Unava ilable Encounter Details Date Type Department Care Team (Late st Contact Info) Description 05/31/2024 External Device Data [facility] ABSTRACTION Provider, Abstract NO ADDRESS ON FILE Social History Tobacco Use Types Packs/Day Years Used Date Smoking Tobacco: Never Assessed Sex and Gender Information Value Date Recorded Sex Assigned at Not on file Gender Identity Not on file Sexual Orientation Not on file documented as of this encounter Plan of Treatment Not on file documented as of this encounter Visit Diagnoses Not on filedocumented in this encounter Care Teams Account Planner Relationship Specialty Start Date End Date Laura Reid MD PCP - General Pediatrics 07/02/17 documented as of this encounter
--- OUTSIDE RECORDS SUMMARY | 2024-08-30 03:00 | XMS_ITS | Encounter Summary ---
Author Organization [facility] Address [address] [facility] [place] [address] Care Team Providers Care Advance Agent Name Role Phone Laura Reid MD Primary Care Provider [phone] Reason for Referral * Sleep - Closed Specialty Diagnoses / Procedures Referred By Kaleigh belle Referred To Contact Diagnoses Excessive sleepiness Procedures POLYSOMNOGRAM W/MULTIPLE SLEEP LATENCY TEST Moody Cotter MD [address] [facility] [address] [place] [address] [facility] [place] [address] [place] [id number] Referral ID Status Reason Start Date Expiration Date Visits Re quested Visits Authorized [id number] Closed 08/15/2015 11/12/2015 1 1 RAL SURVEYING TECHNICIAN Reason for Visit * Reason Comments Sleep Problem hypersomnia seeing p sychologist for depression but falls asleep during therapy sessions, excessive fatigue Encounter Details Date Type Department Care Team (Latest Contact Info) Description 08/02/2015 9:00 AM MINERAL SURVEYING TECHNICIAN - 08/02/2015 11:59 PM MINERAL SURVEYING TECHNICIAN Hospital Encounter [facility] Pediatrics - Sleep Services [address] [place] [address] Moody Cotter MD [address] [facility] [address] [place] [address] Discharge Disposition: Home or Self Care Social [...] Sign Reading Time Taken Comments Blood Pressure 114/70 08/02/2015 9:16 AM MINERAL SURVEYING TECHNICIAN Pulse 78 08/02/2015 9:16 AM MINERAL SURVEYING TECHNICIAN Temperature - - Respiratory Rate - - Oxygen Saturation 98% 08/02/2015 9:16 AM MINERAL SURVEYING TECHNICIAN Inhaled Oxygen Concentration - - Weight 65.7 kg (144 lb 13.5 oz) 08/02/2015 9:16 AM MINERAL SURVEYING TECHNICIAN Height 161.3 cm (5' 3.5 ) 08/02/2015 9:16 AM MINERAL SURVEYING TECHNICIAN Body Mass Index 25.26 08/02/2015 9:16 AM MINERAL SURVEYING TECHNICIAN Body Mass Index Percentile 84.40% 08/02/2015 9:1 6 AM MINERAL SURVEYING TECHNICIAN Growth Chart: CDC (Girls, 2- 20 Years) documented in this encounter Discharge Instructions * Patient Instructions* Moody Cotter MD - 08/02/2015 9:54 AM MINERAL SURVEYING TECHNICIAN 1. Please check [employer] today. If you do not receive a call from us with the results within 3-4 business days of doing the labs please call our office. 2. After talking to her psychiatrist set up a sleep study with a next day nap study at [facility] to look for Narcolepsy. [phone], option # 1. We will plan to call you with the results 1-2 weeks after the sleep study is done. 3. To get an accurate diagnosis she would need to be off the Fluoxetine for at least 2 weeks prior to the study. Before we do this I would want an okay by your psychiatrist to do this and how to wean her medicineand we would need to schedule the study and make sure it is approved by your insurance. The antidepressant Wellbutrin is okay to take before her nap study. 4. Fill out her sleep logs 2 weeks prior to the study. Bring this to the sleep study and give it tothe breeder service technician. 5. Follow-up in clinic in 3 months. 6. Please call us with any questions. ([phone]) RAL SURVEYING TECHNICIAN documented in this encounter Medications at Time of Discharge Medication Sig Dispensed Refills Start Date End Date drospirenone-ethinyl estradiol (VESTURA) 3-0.02 MG tablet Take 1 Tab by mouth once daily 09/19/2019 fludrocortisone (FLORINEF) 0.1 MG tabletIndications:syncop e Take 1 Tab by mouth once daily Reasons: syncope 30 Tab 5 07/06/2015 01/03/2016 FLUoxetine (PROZAC) 20 MG capsule Take 60 mg by mouth once daily 01/03/2016 Pseudoephedrine HCl (SUDAFED 24 HOUR PO) Take 1 Tab by mouth once daily as needed 09/19/2019 documented as of this encounter Progress Notes * Moody Cotter MD - 08/02/2015 9:17 AM CST New Patient Consult Note Pediatric Sleep Medicine [facility] [place], [place] Chief Complaint Patient presents with ??? Sleep Problem hypersomnia seeing psychologist for depression but falls asleep during therapy sessions, excessive fatigue HPI: Josephine Alejandre is a 15 y.o. female who presents to the Pediatric Sleep Medicine Clinic on 08/02/2015. I reviewed the patient's old records. Josephine was accompanied by her adopted mother who assisted in providing the history. They were requested to been seen by Dr. Laura Reid for excessive daytime sleepiness for 2 years, but it has been slowly getting worse. The patient will sleep 8-10 hours atnight and then sleep 4-5 hours in the evening for a total of 12-15 hours per day. It is causing problems with her school work. She had a concussion 3 years ago when she was hit by a volleyball. No sleep paralysis, no sleep hallucinations, no cataplexy, + sleep attacks during conversations some time. The caregiver(s) has tried to fix it by caffiene, which did not help. Sudaphed for her allergies do not keep her awake. The patient also has depression. She is currently treated with Fluoxetine 60mg daily and has a therapist. She has been on the medicine for 6 months. It has not helped her sleepiness, but has helped her deperession. She is doing better with her depression overall. She previously had suicidal thoughts. Dr. Gamal Reyes is her child psychiatrist. She was having recurrent syncope and was instructed p er ped cardiology to drinks lots of water which has helped her syncope and her chronic headaches. Josephine Alejandre has not had a previous polysomnogram. She had labs 1 month ago in the ER which showed anormal cbc, bmp. I have reviewed the additional below sleep history, past medical history, family history, social history, and review of systems that was filled out on a form by the caregiver and documented in the medical record by my certified medical technician. MODIFIED EPWORTH SLEEPINESS SCALE: 21 GENERAL SLEEP SCREENING: The caregiver(s) child does not snore The caregiver(s) also reports a history of mouth breathing, sleep through the night, difficult to awaken in the morning, fall asleep at school, falling asleep in the car, get along with others, sleepy during the day and headaches in the morning. The caregiver(s) also reports a negative history of stop breathing while sleeping, gasping/choking , sweat during sleep, have restless sleep, noisy breathing, bedwetting, is a poor sleeper, resists going to bed, have problems falling asleep, sleep terrors, night hamm, sleep walking, sleep talking and awaken in the middle of the night RESTLESS LEG SYNDROME SCREENING: The caregiver(s) reports that Josephine does not have leg pains/weird feelings in her legs and does have the urge to move her legs at night.. The caregiver(s) does not report tossing and turning while asleep. The patient Josephine does have a history of low iron. Did anyone in the family ever have low iron? no Did anyone in your family ever have high iron? no Did anyone in family have hemochromatois or liver disease from an unknown cause? no SLEEP SCHEDULE: Weekday Bedtime:11:00PM Amount of Time to Fall Asleep:5 minutes or 10 minutes Awakenings at Night:1 or 2 Amount of time to fall back asleep after awakenings: within minutes Weekday Wake Time:7:00AM Rise time after waking up:10 minutes They use an alarm or the parent wakes them: Yes Bedtime:Midnight Wake Time: 10:00AM Rise time after waking up: 10 minutes Naps:One per day for 4 hours 45 min in the evening SLEEP HYGIENE: Sleep Location: in their own room, in their own bed, with cell phone in the room, with computer in the room (school) and texting/2 way pager in the room Night Light: No, If yes what color? Pets sleep with them? No Bedtime Routine: homework, sleep, shower, sleep The patient does not drink caffeine/energy drinks. . The patient does not exercise during the day. Patient Active Problem List Diagnosis ??? Syncope No past surgical history on file. Current Outpatient Prescriptions Medication ??? Pseudoephedrine HCl (SUDAFED 24 HOUR PO) ??? FLUoxetine (PROZAC) 20 MG capsule ??? drospirenone-ethinyl estradiol (VESTURA) 3-0.02 MG tablet ??? fludrocortisone (FLORINEF) 0.1 MG tablet No current facility-administered medications for this encounter. No Known Allergies No family history on file. There is not a family history of sleep problems. Social Hx: The patient she lives with her mom, dad, 1 brother, 2 sisters, and 2 nephews. They are in 11th grade. Smoking in the home or by a caregiver?: No In addition to the above history the below symptoms were also reported. ROS: Josephine has had an acute illness in the last 4 weeks. The patient has a positive history of problems with:stuffy nose, joint aches/pains, abdominal pains, worries/anxiety and depression The patient has not had recent problems with? seeing, hearing, coughing, runny nose, breathing problems, skin problems, acid reflux, leg numbness, urinating/bedwetting, constipation, diarrhea, speechdelay, bedtime fears, hyperactive, lack of self control, developmental delay and weight management Exam: Vitals: 08/02/15 0916 BP: 114/70 Pulse: 78 Weight: 65.7 kg (144 lb 13.5 oz) SpO2: 98% Height: 161.3 cm (5' 3.5 ) Body mass index is 25.25 kg/(m^2). General: well appearing child, no acute distress Respiratory: Clear to auscultation bilaterally, normal effort CV: RRR, no murmurs, no gallops, no rubs Head and Face: no lesions, symmetrical, no facial erythema skin breakdown Eyes: extraocular muscles intact Ears: inspection: normal pinnae shape and position Nasal: normal nasal turbinates, no rhinorrehea and non-deviated septum Oral Cavity: normal bite, normal arched hard palate, normal uvula Normal soft palate, normal size tongue and no scalloping of tongue, Throat: tonsil 1+ Mallampati score 1 Chin:normal position of the jaw Neck: supple without tenderness or crepitus, no palpable adenopathy. Skin:no dry skin on legs Neuro: normal sensation, Musc: normal strength in upper and lower extremities. Psych: alert, active and appropriate behavior and attention for age Assessment/Plan: 1. 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 SSRI suppress REM sleep which can give a false negative MSLT. I discussed this in detail with the patient and her caregiver. They will discuss this with their psychiatrist, Dr. Reyes and call my office. An overnight psg could also be done to just look for CASSIDY or periodic limb movements first. Also some insurance will require an overnight psg and then come back later for repeat psg with a next day MSLT. If her insurance requires this she should stay on her SSRI for now, but we would not know until she schedules it. Wellbutrin is okay for her to switch to because it does not disrupt the MSLT. If the patient has Narcolepsy Provigil or Nuvigil would likely be first line tx. Concerta could also be considered. We will also do labs TSH RECEPTOR ANTIBODY FERRITIN Children with excessive sleepiness, insomnia, restless sleep, and other sleep disturbances with a Ferritin <50 often respond to a 3 month trial of iron (ferrous sulfate). Iron is a necessary cofactor for Dopamine, which is an important neurotransmitter for controlling movements during sleep. Improving iron stores in children with sleep disturbances often result in less restlessness at night and improved consolidation of sleep. Pending the ferritin levels we will start iron twice a day everyday. Take with vitamin C for increased absorption (orange juice or other juice). Most common side effects of iron include gas, bloating, constipation and stool color changes. Fiber gummies, apple juice, increased water, or Miralax for c onstipation. Liquid iron may stain teeth ascencio; use baking soda toothpaste to remove. VITAMIN D 25-HYDROXY There is emerging data that is linking Vitamin D insuffiencey to restless legs and poor quality of sleep. Newer studies are showing that improving Vitamin D insuffiencey in patients with restless sleep is improving the quality of patient's sleep. It is thought that Vitamin D insuffiencey is linked to dopaminergic dysfunction resulting in an increased likelihood of restlessness at night. We will check the patient's Vitamin D 25 OH and if sub optimal we will start the patient on Vitamin D3 and recheck it in 3 months with a goal Vitamin D level of 50-70. 2. Depression It is common to have Depression with Narcolepsy CC: Dr. Laura Reid, PCP Dr. Gamal Reyes, Child psychiatrist. The below plan was given to the parent. Patient Instructions 1. Please check [employer] labs today. If you do not receive a call from us with the results within 3-4 business days of doing the labs please call our office. 2. After talking to her psychiatrist set up a sleep study with a next day nap study at [facility] to look for Narcolepsy. [phone], option # 1. We will plan to call you with the results 1-2 weeks after the sleep study is done. 3. To get an accurate diagnosis she would need to be off the Fluoxetine for at least 2 weeks prior to the study. Before we do this I would want an okay by your psychiatrist to do this and how to wean her medicineand we would need to schedule the study and make sure it is approved by your insurance. The antidepressant Wellbutrin is okay to take before her nap study. 4. Fill out her sleep logs 2 weeks prior to the study. Bring this to the sleep study and give it tothe breeder service technician. 5. Follow-up in clinic in 3 months. 6. Please call us with any questions. ([phone]) Thank you for allowing me to participate in the care of your patient. Please call us with any questions. Ashley Cotter MD D, AB- Sleep Medicine Pediatric Sleep Specialist [facility] [address] [place] [address], [address] [place] [id number] (phone) [phone] (fax) RAL SURVEYING TECHNICIAN documented in this encounter Plan of Treatment Scheduled Orders Name Type Priority Associated Diagnoses Orde r Schedule TSH RECEPTOR ANTIBODY Lab Routine Excessive sleepiness Ordered: 08/02/2015 FERRITIN Lab Routine Excessive sleepiness Ordered: 08/02/2015 VITAMIN D 25-HYDROXY Lab Routine Excessive sleepiness Ordered: 08/02/2015 documented as of this encounter Results * POLYSOMNOGRAM W/MULTIPLE SLEEP LATENCY TEST (09/12/2015) Linked Results See Linked Results SLEEP CENTER 09/12/2015 Moody Cotter MD [facility] documented in this encounter Visit Diagnoses Diagnosis Excessive sleepiness- Primary Hypersomnia, unspecified Depression Depressive disorder, not elsewhere classified documented in this encounter Care Teams Advance Agent Relationship Specialty Start Date End Date Laura Reid MD PCP - General Pediatrics 07/06/15 10/27/19 documented as of this encounter
--- OUTSIDE RECORDS SUMMARY | 2024-08-30 03:00 | XMS_ITS | Encounter Summary ---
Author Organization [facility] Address [address] [place] [address] Care Team Providers Care Emergency Generator Mechanic Name Role Phone Laura Reid MD Primary Care Provider [phone] Laura Reid MD Primary Care Provider [phone] Laura Reid MD Unavailable [phone] Reason for Visit * Reason Onset Date Comments POST-OP PROBLEM 09/23/2019 Encounter Details Date Type Department Care Team (Late Contact Info) Description 09/23/2019 Telephone [facility] [address] [place] [address] Albert Huddleston MD [address] [place] [address] POST-OP PROBLEM Social History Tobacco Use Types Packs/Day Years [...] Telephone Encounter - Ute Wallace RN - 09/26/2019 8:47 AM CST Left detailed message on vm to add: -Simethicone q6h -Magnesium citrate to gatorade & ice. Call back or got to ER if no BM after 6 hours of drinking Mag Citrate. EDGE MACHINE OPERATOR * Telephone Encounter - Gamal Cotter - 09/23/2019 3:41 PM CST Pt called in stating she has not had a bowel movement since she had surgery or Thursday. She also states her bloating is getting worse and it's uncomfortable. Callback#[phone] EDGE MACHINE OPERATOR documented in this encounter Plan of Treatment Not on file documented as of this encounter Visit Diagnoses Not on filedocumented in this encounter Care Teams Emergency Generator Mechanic Relationship Specialty Start Date End Date Laura Reid MD PCP - General Pediatrics 07/06/15 10/27/19 Laura Reid MD PCP - General Pediatrics 10/28/19 Laura Reid MD Pediatrics 10/28/19 documented as of this encounter
--- OUTSIDE RECORDS SUMMARY | 2024-08-30 03:00 | XMS_ITS | Encounter Summary ---
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 mL/hr Patient to discontinue after 3 days or when empty, whichever comes first REFRIGERATE scopolamine (TRANSDERM-SCOP) 1 patch 1 patch, Administer over 72 Hours, ONCE, 1 dose, On Thu09/19/19 at 0645, For patients less than 60 years old, without glaucoma, and with a positive history of Post Operative Nausea and Vomiting. Each patch contains 1.5 mg scopolamine base and is formulated to deliver 1 mg of scopolamine over 72 hours. $ Applied 09/19/2019 6:56 AM BINITROTOLUENE OPERATOR 1 patch Behind Left Ear scopolamine patch placement confirmation Transdermal, 2 TIMES DAILY, First dose on Thu09/19/19 at 0900, Until Discontinued, Patient has a patch to be confirmed on transition to inpatient and 2 times daily., Pre-op documented in this encounter Active and Recently Administered Medications Times are shown in BINITROTOLUENE OPERATOR. Scheduled Medication Order 09/17/2019 09/18/2019 09/19/2019 acetaminophen (TYLENOL) tablet 1,000 mg (COMPLETED) 1,000 mg, Oral, ONCE, 1 dose, On Thu09/19/19 at 0645, Pre-op 0656 ($ Given - Prov ider: Anny Reece RN) ibuprofen (MOTRIN) tablet 600 mg 600 mg, Oral, EVERY 6 HOURS, 20 doses, First dose on Thu09/19/19 at 1200, Last dose on Thu09/24/19 at 0600, Not to exceed 3200 mg daily from all sources., Post-op 1200 (Due) lidocaine (XYLOCAINE MPF) 1 % injection 0.2 mL 0.2 mL, Infiltration, PRE-OP MULTIPLE, 3 doses, Starting on Thu09/19/19 at 0639, Until Thu09/19/19 at 1359, May be used (0.2 ml locally to anesthetize prior to insertion)., Pre-op 0657 ($ Given - Prov ider: Anny Reece RN) naloxone (NARCAN) injection 0.04 mg 0.04 mg, Intravenous, POST-OP MULTIPLE, Starting on Thu09/19/19 at 0939, Until Thu09/19/19 at 1359, Notify physician immediately, and mix 0.4 mg Naloxone in 9 mL Normal Saline for slow IV push. Administer dilute Naloxone solution IV very slowly (1 mL over 30 seconds) while observing the patient response and titrating to effect. If no response, call Rapid Response, continue IV Naloxone at the same rate up to a total of 0.8 mg of diluted Naloxone., PACU scopolamine (TRANSDERM-SCOP) 1 patch(Linked Group 1) 1 patch, Administer over 72 Hours, ONCE, 1 dose, On Thu09/19/19 at 0645, For patients less than 60 years old, without glaucoma, and with a positive history of Post Operative Nausea and Vomiting. Each patch contains 1.5 mg scopolamine base and is formulated to deliver 1 mg of scopolamine over 72 hours. 0656 ($ Applied - Pr ovider: Anny Reece RN) scopolamine patch placement confirmation(Linked Group 1) Transdermal, 2 TIMES DAILY, First dose on Thu09/19/19 at 0900, Until Discontinued, Patient has a patch to be confirmed on transition to inpatient and 2 times daily., Pre-op 0900 (Due) Continuous Medication Order 09/17/2019 09/18/2019 09/19/2019 lactated ringers infusion at 20 mL/hr, Intravenous, PRE-OP CONTINUOUS, Starting on Thu09/19/19 at 0645, Until Thu09/19/19 at 1359, Pre-op 0759 ($ New Bag/Syri nge - Provider: MAIK Rebolledo)0927 (Anesthesia Volume Adjustment - Provider: MAIK Rebolledo) lactated ringers infusion at 125 mL/hr, Intravenous, CONTINUOUS, Starting on Thu09/19/19 at 0945, Until Thu09/19/19 at 1359, PACU 0945 (Due) ropivacaine (NAROPIN ON-Q) 0.2% in ELASTOMERIC PUMP 550 mL 550 mL, Infiltration, CONTINUOUS, Starting on Thu09/19/19 at 0745, Until Thu09/19/19 at 1359, Infuse at 8 mL/hr Patient to discontinue after 3 days or when empty, whichever comes first REFRIGERATE 0745 (Due) PRN Medication Order 09/17/2019 09/18/2019 09/19/2019 0.9% nacl irrigation solution (CANCELED) PRN, Starting on Thu09/19/19 at 0924, Until Thu09/19/19 at 0940, Intra-op 0924 ($ Given - Prov ider: Albert Huddleston MD) bupivacaine PF (MARCAINE PF) 0.25 % injection (CANCELED) PRN, Starting on Thu09/19/19 at 0924, Until Thu09/19/19 at 0940, Intra-op 0924 ($ Given - Prov ider: Albert Huddleston MD) fentaNYL (PF) (SUBLIMAZE) injection 50 mcg 50 mcg, Intravenous, EVERY 3 MIN PRN, Mild Pain, 4 doses, Starting on Thu09/19/19 at 0939, Until Thu09/19/19 at 1359, Maximum total of 4 doses. If patient reaches max total dose, please consult anesthesiologist prior to further administration of pain meds. Hold pain meds if there are signs of hypoventilation., PACU 0955 ($ Given - Prov ider: Melania Palacios RN)1022 ($ Given - Provider: Melania Palacios RN) HYDROmorphone (DILAUDID) injection 0.5 mg 0.5 mg, Intravenous, EVERY 5 MIN PRN, Severe Pain, 4 doses, Starting on Thu09/19/19 at 0939, Until Thu09/19/19 at 1359, Maximum total of 4 doses If patient reaches max total dose, please consult anesthesiologist prior to further administration of pain meds. Hold pain meds if there are signs of hypoventilation., PACU metoclopramide (REGLAN) injection 5 mg 5 mg, Intravenous, EVERY 6 HOURS PRN, Nausea/Vomiting, Starting on Thu09/19/19 at 1052, Until Thu09/19/19 at 1359, If no relief from ondansetron (ZOFRAN) or prochlorperazine (COMPAZINE), use metoclopramide (REGLAN) in addition to ondansetron and prochlorperazine., Post-op metoclopramide (REGLAN) injection 5 mg 5 mg, Intramuscular, EVERY 6 HOURS PRN, Nausea/Vomiting, Starting on Thu09/19/19 at 1052, Until Thu09/19/19 at 1359, If no relief from ondansetron (ZOFRAN) or prochlorperazine (COMPAZINE), use metoclopramide (REGLAN). Use IM route if IV is unavailable in addition to ondansetron and prochlorperazine., Post-op morphine injection 4 mg 4 mg, Intravenous, EVERY 5 MIN PRN, Moderate Pain, 3 doses, Starting on Thu09/19/19 at 0939, Until Thu09/19/19 at 1359, Maximum total of 3 doses. If patient reaches max total dose, please consult anesthesiologist prior to further administration of pain meds. Hold pain meds if there are signs of hypoventilation., PACU ondansetron (disintegrating) (ZOFRAN ODT) tablet 4 mg 4 mg, Oral, EVERY 6 HOURS PRN, Nausea/Vomiting, Starting on Thu09/19/19 at 1052, Until Thu09/19/19 at 1359, Allow tablet to dissolve on the tongue, Post-op ondansetron (ZOFRAN) injection 4 mg 4 mg, Intravenous, ONCE PRN, Nausea/Vomiting, 1 dose, Starting on Thu09/19/19 at 0939, Until Thu09/19/19 at 1359, First choice, PACU ondansetron (ZOFRAN) injection 4 mg 4 mg, Intravenous, EVERY 6 HOURS PRN, Nausea/Vomiting, Starting on Thu09/19/19 at 1052, Until Thu09/19/19 at 1359, Administer IV if patient is NPO, actively vomiting, or unable to swallow., Post-op oxyCODONE-acetaminophen (PERCOCET) 5-325 MG tablet 1 tablet 1 tablet, Oral, EVERY 4 HOURS PRN, Moderate Pain, Starting on Thu09/19/19 at 1052, Until Thu09/19/19 at 1359, Post-op 1055 ($ Given - Prov ider: Minnie Gasca RN) prochlorperazine (COMPAZINE) injection 5 mg 5 mg, Intravenous, EVERY 6 HOURS PRN, Nausea/Vomiting, Starting on Thu09/19/19 at 1052, Until Thu09/19/19 at 1359, If no relief from ondansetron (ZOFRAN), use prochlorperazine (COMPAZINE) in addition to ondansetron., Post-op prochlorperazine (COMPAZINE) injection 5 mg 5 mg, Intramuscular, EVERY 6 HOURS PRN, Nausea/Vomiting, Starting on Thu09/19/19 at 1052, Until Thu09/19/19 at 1359, If no relief from ondansetron (ZOFRAN), use prochlorperazine (COMPAZINE) in addition to ondansetron. Use IM route if IV is unavailable., Post-op Linked Groups Order Group 1: scopolamine (TRANSDERM-SCOP) 1 patchJump to med 1 patch, Administer over 72 Hours, ONCE, 1 dose, On Thu09/19/19 at 0645, For patients less than 60 years old, without glaucoma, and with a positive history of Post Operative Nausea and Vomiting. Each patch contains 1.5 mg scopolamine base and is formulated to deliver 1 mg of scopolamine over 72 hours. And scopolamine patch placement confirmationJump to med Transdermal, 2 TIMES DAILY, First dose on Thu09/19/19 at 0900, Until Discontinued, Patient has a patch to be confirmed on transition to inpatient and 2 times daily., Pre-op documented in this encounter Care Teams Wood Carver Relationship Specialty Start Date End Date Laura Reid MD PCP - General Pediatrics 07/06/15 10/27/19 documented as of this encounter
--- OUTSIDE RECORDS SUMMARY | 2024-08-30 03:00 | XMS_ITS | Encounter Summary ---
Author Organization [facility] Address [address] [place] [address] Care Team Providers Care Geospatial Program Management Officer Name Role Phone Laura Reid MD Primary Care Provider [phone] Reason for Visit * Reason Onset Date Comments Results 05/27/2019 Encounter Details Date Type Department Care Team (Late st Contact Info) Description 05/27/2019 Telephone [facility] [address] [place] [address] Albert Huddleston MD [address] [place] [address] Results Social History Tobacco Use [...] encounter Miscellaneous Notes * Telephone Encounter - Zoie Gordon RN - 05/27/2019 4:44 PM CDT RN called patient to make her aware of positive chlamydia results from 04-06-19. Pt states that she has not received treatment for this yet. Pt made aware that it is sexually transmitted and that her partner will need treatment as well. RN reviewed medication/allergies with her and sent it into her pharmacy. RN advised that she should abstain from intercourse until 2 weeks after both her and her pa rtner have received treatment. Pt verbalized understanding and denies further questions. documented in this encounter Plan of Treatment Not on file documented as of this encounter Visit Diagnoses Not on filedocumented in this encounter Care Teams Geospatial Program Management Officer Relationship Specialty Start Date End Date Laura Reid MD PCP - General Pediatrics 07/06/15 10/27/19 documented as of this encounter
--- OUTSIDE RECORDS SUMMARY | 2024-08-30 03:00 | XMS_ITS | Encounter Summary ---
Author Organization [facility] Address [address] [place] [address] Care Team Providers Care Surgical Instruments Inspector Name Role Phone Laura Reid MD Primary Care Provider [phone] Reason for Visit * Auth/Cert Specialty Diagnoses / Procedures Referred By Kaleigh belle Referred To Contact Diagnoses Diagnosis unknown Diagnosis unknown [R69] Procedures LAPAROSCOPIC FULGURATION/EXCISION LESION PELVIC/OVARY (LASER) Referral ID Status Reason Start Date Expiration Date Visits Re quested Visits Authorized [id number] 1 1 Encounter Details Date Type Department Care Team (Late st Contact Info) Description 09/19/2019 7:30 AM WIRE DRAWING DIE MAKER - 09/19/2019 10:29 AM WIRE DRAWING DIE MAKER Surgery [facility] [address] [place] [address] Albert Huddleston MD [address] [place] [id number] DIAGNOSTIC LAPAROSCOPY, EXCISION OF ENDOMETRIOSIS WITH CO2 LASER Surgery Details Date/Time Status Location OR Service Patient Class Case Class Case Type Trauma Case? 09/19/2019 7:30 AM Posted [facility] OR 14 Gynecology Surgery Day Care Elective > 5 days Panel 1 Procedure LRB Anes Op Region Wound Class Comments DIAGNOSTIC LAPAROSCOPY, EXCI LISA OF ENDOMETRIOSIS WITH CO2 LASER N/A General Abdomen Clean Contam inated LAPAROSCOPIC APPENDECTOMY N/A General Abdomen Sury n Contaminated CYSTOSCOPY WITH HYDRODISTENSION N/A General Bladder Clean Contaminated Surgeon Surgeon Role Service Panel Albert Huddleston MD Primary Gynecology 1 Special Needs NEEDS AIR SEAL / NEEDS [employer] CO2 LASER--COMPANY ([employer]) NOTIFIED, CONF# [id number]--52/22 CT documented in this encounter Social History Tobacco [...] Sign Reading Time Taken Comments Blood Pressure 135/78 09/19/2019 10:25 AM WIRE DRAWING DIE MAKER Pulse 67 09/19/2019 10:25 AM WIRE DRAWING DIE MAKER Temperature 36 ??C (96.8 ??F) 09/19/2019 9:40 AM WIRE DRAWING DIE MAKER Respiratory Rate 16 09/19/2019 10:25 AM WIRE DRAWING DIE MAKER Oxygen Saturation 100% 09/19/2019 10:25 AM WIRE DRAWING DIE MAKER Inhaled Oxygen Concentration - - Weight 66.7 kg (147 lb) 09/19/2019 6:50 AM WIRE DRAWING DIE MAKER Height 157.5 cm (5' 2 ) 09/19/2019 6:50 AM WIRE DRAWING DIE MAKER Body Mass Index 26.89 09/19/2019 6:50 AM WIRE DRAWING DIE MAKER documented in this encounter Medications at Time [...] of this encounter H&P Notes * Albert Huddleston MD - 09/06/2019 3:00 PM CST Pre [...] reports symptoms did not improve. Her primary DIRECTOR OF WORKFORCE DEVELOPMENT thought pt had endometriosis due to the [...] Past Surgical History: Procedure Laterality Date ??? Fisher Tooth Extraction 2018 OB: OB History Para Term AB Living 1 0 1 SAB TAB Ectopic Multiple Live Births 1 # Outcome Date GA Lbr Kyle/2nd Weight Sex Delivery Anes PTL Lv 1 SAB Obstetric Comments History of abnormal Paps: no Last Pap:2018 History of STDs: yes - Chlamydia Last mammogram: no Last colonoscopy: no DIRECTOR OF WORKFORCE DEVELOPMENT: see HPI SOC: Social History Socioeconomic History [...] results for input(s): ABORH in the last 88312 hours. No results for input(s): WBC, HGB, HCT, PLTCOUNT in the last 03898 hours. No results for input(s): SODIUM, POTASSIUM, CHLORIDE, CO2, BUN, CREATININE, GLUCOSE, CALCIUM in thelast 51239 hours. Imaging: TVUR: Sonographically normal uterus, ovaries, [...] to OR when ready. Albert Huddleston MD DRAWING DIE MAKER documented in this encounter OR Notes * [...] zendejas aspects of it. Albert Huddleston MD media arts professor of [employer], [facility] Endometriosis, Minimally Invasive Gynecology DRAWING DIE MAKER documented in this encounter Plan of Treatment Not on file documented as of this encounter Procedures Procedure Name Priority Date/Time Associated Diagnosis Comments APHERESIS/TRANSFUSI ON ORDER 09/21/2019 3:43 PM WIRE DRAWING DIE MAKER CARDIAC RHYTHM STRIP ORDER 09/21/2019 3:43 PM WIRE DRAWING DIE MAKER PATHOLOGY TISSUE EXAM (STL) Routine 09/19/2019 8:49 AM WIRE DRAWING DIE MAKER Diagnosis unknown HCG URINE QUAL POCT NOTIFICATION CANDIDA 09/19/2019 8:00 AM WIRE DRAWING DIE MAKER Preop examination BLOOD TYPE VERIFICATION Routine 09/19/2019 7:01 AM WIRE DRAWING DIE MAKER HCG URINE QUALITATIVE - POCT (IP) INTERFACED Routine 09/19/2019 6:50 AM WIRE DRAWING DIE MAKER DC CYSTOSCOPY,DIL BLADDER,GEN ANESTH 09/19/2019 6:40 AM WIRE DRAWING DIE MAKER Diagnosis unknown Special Needs NEEDS AIR SEAL / NEEDS [employer] CO2 [employer]--COMP[employer] ([employer]) NOTIFIED, CONF# [id number]--45/22 CT DC LAP,APPENDECTOMY 09/19/2019 6 :40 AM WIRE DRAWING DIE MAKER Diagnosis unknown Special Needs NEEDS AIR SEAL / NEEDS [employer] CO2 [employer]AS[employer]--COMPANY ([employer]) NOTIFIED, CONF# [id number]--07/22 CT DC LAP,FULGURATE/EXCIS E LESIONS 09/19/2019 6:40 AM WIRE DRAWING DIE MAKER Diagnosis unknown Special Needs NEEDS AIR SEAL / NEEDS [employer] CO2 LAS[employer]--COMPANY ([employer]) NOTIFIED, CONF# [id number]--34/22 CT documented in this encounter Results * APHERESIS/TRANSFUSION ORDER (09/21/2019 3:43 PM WIRE DRAWING DIE MAKER) Narrative 09/21/2019 3:43 PM WIRE DRAWING DIE MAKER Ordered by an unspecified provider. Scanned Document NURSING - VITAL SIGN S AND ASSESSMENT * CARDIAC RHYTHM STRIP ORDER (09/21/2019 3:43 PM WIRE DRAWING DIE MAKER) Narrative 09/21/2019 3:43 PM WIRE DRAWING DIE MAKER Ordered by an unspecified provider. Scanned Document CARDIAC SERVICES ORD ERABLES * GROSS + MICRO EXAM (STL) (09/19/2019 8:49 AM WIRE DRAWING DIE MAKER) Case Report Surgical Pathology Report ? Case: [id number] ? Authorizing Provider: ??Albert Huddleston MD ?Collected: ? 09/19/2019 08:49 AM ? Ordering Location: ? [facility] ? Received: ?09/19/2019 10:46 AM ? Pathologist: ? Eric Almeida MD ? Specimens: ?? A) - Fossa, Left Ovarian Fossa ? B) - Tissue, Left Parauterine ? C) - Ligament, Right Uterosacral Ligament ? D) - Ligament, Left Uterosacral Ligament ? E) - Cyst, Left Peritubal Cyst ? F) - Appendix ? 09/21/2019 2:14 PM [facility] Final Diagnosis A. Left ovarian fossa, [...] in the appendiceal wall. 09/21/2019 2:14 PM [facility] Clinical History 19-year-old female who underwent diagnostic laparoscopy with excision of endometriosis with CO2 laser. 09/21/2019 2:14 PM [facility] Gross Description Containers A-F are labeled [...] in cassette F1. SW/ns 09/21/2019 2:14 PM [facility] Microscopic Description Microscopic findings confirm the final diagnosis. Deeper sections were obtained for specimens A, B, C and D. 09/21/2019 2:14 PM [facility] Disclaimer All histochemical and/or immunohistochemical results [...] perform high complexity testing. 09/21/2019 2:14 PM [facility] Embedded Images 09/21/2019 2:14 PM [facility] Pathology/Cytology MISCELLANEOUS SAMPLES / Unknown 09/19/2019 8:49 AM WIRE DRAWING DIE MAKER 09/19/2019 10:46 AM WIRE DRAWING DIE MAKER Comment:Pre-op diagnosis: Diagnosis unknown [R69] Miscellaneous samples (specimen) TISSUE SPECIMEN / Unknown 09/19/2019 8:50 AM WIRE DRAWING DIE MAKER 09/19/2019 10:46 AM WIRE DRAWING DIE MAKER Comment:Pre-op diagnosis: Diagnosis unknown [R69] Miscellaneous samples (specimen) ENTIRE LIGAMENT / Unknown 09/19/2019 8:56 AM WIRE DRAWING DIE MAKER 09/19/2019 10:46 AM WIRE DRAWING DIE MAKER Comment:Pre-op diagnosis: Diagnosis unknown [R69] Miscellaneous samples (specimen) ENTIRE LIGAMENT / Unknown 09/19/2019 8:57 AM WIRE DRAWING DIE MAKER 09/19/2019 10:46 AM WIRE DRAWING DIE MAKER Comment:Pre-op diagnosis: Diagnosis unknown [R69] Miscellaneous samples (specimen) CYST TISSUE / Unknown 09/19/2019 8:59 AM WIRE DRAWING DIE MAKER 09/19/2019 10:46 AM WIRE DRAWING DIE MAKER Comment:Pre-op diagnosis: Diagnosis unknown [R69] Miscellaneous samples (specimen) ENTIRE APPENDIX / Unknown 09/19/2019 9:09 AM WIRE DRAWING DIE MAKER 09/19/2019 10:46 AM WIRE DRAWING DIE MAKER Comment:Pre-op diagnosis: Diagnosis unknown [R69] Albert Huddleston MD LAB - PATHOLOGY/CY TOLOGY ORDERABLES [facility] [address] [place] [id number] * HCG URINE QUAL POCT NOTIFICATION (09/19/2019 8:00 AM WIRE DRAWING DIE MAKER) Comment Notification Label Only - See Separate Report 09/19/2019 8:00 AM WIRE DRAWING DIE MAKER [facility] Urine URINE / Unknown 0 6:40 AM WIRE DRAWING DIE MAKER Sergio Quezada MD LAB - URINALYSIS ORD ERABLES [facility] [address] [place], [place] [id number] * BLOOD TYPE VERIFICATION (09/19/2019 7:01 AM WIRE DRAWING DIE MAKER) ABO O 09/19/2019 7:23 AM WIRE DRAWING DIE MAKER [facility] Rh Type Positive 09/19/2019 7:23 AM WIRE DRAWING DIE MAKER [facility] Blood Bank BLOOD SPECIMEN / Unknown Venipuncture / Unknown 09/19/2019 7:01 AM WIRE DRAWING DIE MAKER 09/19/2019 7:05 AM WIRE DRAWING DIE MAKER Sregio Quezada MD LAB - BLOOD BANK ORD ERABLES [facility] [address] [place] [place] [id number] [place] [address] * HCG URINE QUALITATIVE - POCT (IP) INTERFACED (09/19/2019 6:50 AM WIRE DRAWING DIE MAKER) HCG Qual Urine Negative Negative 09/19/2019 6:52 AM WIRE DRAWING DIE MAKER [facility] Urine URINE / Unknown 09/19/2019 6 :50 AM WIRE DRAWING DIE MAKER 09/19/2019 6:52 AM WIRE DRAWING DIE MAKER Albert Huddleston MD LAB - POINT OF CAR E ORDERABLES Performing Organization Address City/[facility] Co de Phone Number [facility] [address] [place] [address] documented in this encounter Visit Diagnoses Diagnosis Preop examination- Primary Preoperative examination, unspecified Diagnosis unknown Other unknown and unspecified cause of morbidity or mortality Diagnosis unknown Other unknown and unspecified cause of morbidity or mortality documented in this encounter Administered Medications Inactive Administered Medications - up to 3 most recent administrations Medication Order MAR Action Action Date Dose Rate Site 0.9% nacl irrigation solution PRN, Starting on Thu09/19/19 at 0924, Until Thu09/19/19 at 0940, Intra-op $ Given 09/19/2019 9:24 AM WIRE DRAWING DIE MAKER 500 mL Operative Site acetaminophen (TYLENOL) tablet 1,000 mg 1,000 mg, Oral, ONCE, 1 dose, On Thu09/19/19 at 0645, Pre-op $ Given 09/19/2019 6:56 AM WIRE DRAWING DIE MAKER 1,000 mg bupivacaine PF (MARCAINE PF) 0.25 % injection PRN, Starting on Thu09/19/19 at 0924, Until Thu09/19/19 at 0940, Intra-op $ Given 09/19/2019 9:24 AM WIRE DRAWING DIE MAKER 12 mL Operative Site fentaNYL (PF) (SUBLIMAZE) injection 50 mcg 50 mcg, Intravenous, EVERY 3 MIN PRN, Mild Pain, 4 doses, Starting on Thu09/19/19 at 0939, Until Thu09/19/19 at 1359, Maximum total of 4 doses. If patient reaches max total dose, please consult anesthesiologist prior to further administration of pain meds. Hold pain meds if there are signs of hypoventilation., PACU $ Given 09/19/2019 10:22 AM WIRE DRAWING DIE MAKER 50 mcg $ Given 09/19/2019 9:55 AM WIRE DRAWING DIE MAKER 50 mcg lactated ringers infusion at 20 mL/hr, Intravenous, PRE-OP CONTINUOUS, Starting on Thu09/19/19 at 0645, Until Thu09/19/19 at 1359, Pre-op $ New Bag/Syringe 09/19/2019 7:59 AM WIRE DRAWING DIE MAKER lidocaine (XYLOCAINE MPF) 1 % injection 0.2 mL 0.2 mL, Infiltration, PRE-OP MULTIPLE, 3 doses, Starting on Thu09/19/19 at 0639, Until Thu09/19/19 at 1359, May be used (0.2 ml locally to anesthetize prior to insertion)., Pre-op $ Given 09/19/2019 6:57 AM WIRE DRAWING DIE MAKER 0.2 mL oxyCODONE-acetaminophen (PERCOCET) 5-325 MG tablet 1 tablet 1 tablet, Oral, EVERY 4 HOURS PRN, Moderate Pain, Starting on Thu09/19/19 at 1052, Until Thu09/19/19 at 1359, Post-op $ Given 09/19/2019 10:55 AM WIRE DRAWING DIE MAKER 1 tablet ropivacaine (NAROPIN ON-Q) 0.2% in [...] 72 hours. $ Applied 09/19/2019 6:56 AM WIRE DRAWING DIE MAKER 1 patch Behind Left Ear scopolamine patch placement confirmation Transdermal, 2 TIMES DAILY, First dose on Thu09/19/19 at 0900, Until Discontinued, Patient has a patch to be confirmed on transition to inpatient and 2 times daily., Pre-op documented in this encounter Active and Recently Administered Medications Times are shown in WIRE DRAWING DIE MAKER. Scheduled Medication Order 09/17/2019 09/18/2019 09/19/2019 acetaminophen (TYLENOL) tablet 1,000 mg (COMPLETED) 1,000 mg, Oral, ONCE, 1 dose, On Thu09/19/19 at 0645, Pre-op 0656 ($ Given - Prov ider: Anny Reece, RN) ibuprofen (MOTRIN) tablet 600 mg 600 [...] 0657 ($ Given - Prov ider: Anny Reece, JALEN) naloxone (NARCAN) injection 0.04 mg 0.04 mg, [...] Intra-op 0924 ($ Given - Prov ider: Albret Huddleston MD) fentaNYL (PF) (SUBLIMAZE) injection 50 [...] Pre-op documented in this encounter Care Teams Surgical Instruments Inspector Relationship Specialty Start Date End Date Laura Reid MD PCP - General Pediatrics 07/06/15 10/27/19 documented as of this encounter
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
--- OUTSIDE RECORDS SUMMARY | 2024-08-30 03:00 | XMS_ITS | Encounter Summary ---
Author Organization [facility] Address [address] [place] [address] Care Team Providers Care Counseling Director Name Role Phone Laura Reid MD Primary Care Provider Reason for Visit * Reason Onset Date Comments Surgery Rescheduled 07/25/2019 Encounter Details Date Type Department Care Team (Late st Contact Info) Description 07/25/2019 Telephone [facility] Obstetrics Gynecology and Women's Health [address] [place] [address] Albert Huddleston MD [address] [place] [phone] Surgery Rescheduled Social History Tobacco Use Types [...] * Telephone Encounter - Akosua Pardo - 07/25/2019 8:48 AM CST Contacted pt to f/u @ [facility] surgery per OR, lm for pt to contact me. IMEDIA SPECIALIST documented in this encounter Plan of Treatment Not on file documented as of this encounter Visit Diagnoses Not on filedocumented in this encounter Care Teams Counseling Director Relationship Specialty Start Date End Date Laura Reid MD PCP - General Pediatrics 07/06/15 10/27/19 documented as of this encounter
--- OUTSIDE RECORDS SUMMARY | 2024-08-30 03:00 | XMS_ITS | Encounter Summary ---
Author Organization [facility] Address [address] [place] [address] Care Team Providers Care Security Patrol Driver Name Role Phone Laura Reid MD Primary Care Provider Unava ilable Reason for Referral * Radiology Services (Routine) - Closed Specialty Diagnoses / Procedures Referred By Contac t Referred To Contact Diagnoses Encounter for screening for malformation Family history of congenital heart defect Procedures US OB FOLLOW UP PER FETUS Chata Wiley MD [address]MAN [address] [place] [phone] [facility] Maternal And [facility] Machelle Ingram [address] [place] [phone] Referral ID Status Reason Start Date Expiration Date Visits Re quested Visits Authorized [id number] Closed 03/31/2024 05/01/2025 1 1 Reason for Visit * Radiology Services (Routine) - Closed Specialty Diagnoses / Procedures Referred By Contac t Referred To Contact Diagnoses Encounter for screening for malformation Family history of congenital heart defect Procedures US OB FOLLOW UP PER FETUS Chata Wiley MD [address]MAN [address] [place] [phone] [facility] Maternal And [facility] Machelle Ingram [address] [place] [phone] Referral ID Status Reason Start Date Expiration Date Visits Re quested Visits Authorized [id number] Closed 03/31/2024 05/01/2025 1 1 Encounter Details Date Type Department Care Team (Late st Contact Info) Description 05/30/2024 12:54 PM CDT - 05/30/2024 11:59 PM CDT Hospital Encounter [facility] and [facility] [address] Machelle Ingram [address] [place] [address] Chata Wiley MD 2022 MACHELLE IN[address] [place] [address] Discharge Disposition: Home or Self [...] malformation Family history of congenital heart defect documented in this encounter Results * US OB FOLLOW UP PER FETUS (05/30/2024 2:25 PM CDT) Anatomical Region Laterality Modality Pelvis Ultrasound 05/30/2024 1:19 PM CDT Narrative 05/30/2024 2:33 PM CDT STL FOLLOW UP ----- Pat. Name: MARGAUX AREVALO Study Date: 05/30/2024 1:19pm Pat. NO: [id number] Referring ??MD: CHATA WILEY MD Site: [place] [employer] Operator: Lolis Bear RDMS : 2000 Age: 24 ----- INDICATION ----- Screening Follow-Up Family History of Congenital Heart Defect, ? MOB brother - unknown defect around 4 years old Suspected in Fetus Tobacco Use Complicating , Cigarettes History Marijuana use in CODING ----- Diagnoses ? Z3A.24: Weeks of gestation ?O99.321-099: History Marijuana use in ?O99.332: Tobacco use disorder complicating ?O35.2XX0: Maternal care for (suspected) hereditary disease in fetus ?Z36.3: Encounter for screening for malformations ?Z3A.24: Weeks of gestation ?O99.332: Tobacco use disorder complicating ?O35.2XX0: Maternal care for (suspected) hereditary disease in fetus ?Z36.2: Encounter for other screening follow-up Procedures ?64717: Ultrasound, uterus, real time with image documentation, follow up, transabdominal ?approach per fetus ?57183: Echocardiography, , cardiovascular system, real time with image documentation (2D), with or ?without M-mode recording ?51417: Doppler echocardiography color flow velocity mapping ?57106: Doppler echocardiography, , cardiovascular system, pulsed wave and/or continuous wave with ?spectral display; complete HISTORY ----- OB History ? 4 ?Miscarriages 3 ?A3 MATERNAL ASSESSMENT ----- Physical Exam ? Weight 79 kg. BMI 32.01 kg/m?? METHOD ----- Transabdominal ultrasound examination ----- Us . Number of fetuses: 1 DATING ----- GA by prior assessment 24 w + 5 d ELIZABETH by prior assessment: 09/14/2024 Ultrasound examination on: 05/30/2024 GA by U/S based upon: AC, BPD, EFW, Femur, HC GA by U/S 24 w + 6 d ELIZABETH by U/S: 09/13/2024 Method of dating: Restore dating from previous exam Assigned: based on stated ELIZABETH, selected on 04/21/2024 Assigned GA 24 w + 5 d Assigned ELIZABETH: 09/14/2024 BIOMETRY ----- BPD ?59.4 ? mm ?24w 2d ?26% ?Hadlock OFD ?77.2 ? mm ?25w 2d ?71% ?Melinda HC ? 219.9 ?mm ?24w 0d ?11% ?Hadlock AC ? 208.9 ?mm ?25w 3d ?64% ?Hadlock Femur ?46.4 ? mm ?25w 3d ?60% ?Hadlock HC / AC ?1.05 ? 10% ?Nicolaides Weight Calculation: EFW ?785 ? g ?25w 0d ?63% ?Hadlock EFW (lb,oz) ?1 lb 12 ? oz EFW by ?Hadlock ([id number]) Thorax / Lungs Biometry: Thoracic circ ?170.6 ?mm ? 33% ?[place] Thoracic area ?23.2 ? cm?? ThC / AC ? 0.82 Heart / Great Vessels Biometry: Cardiac axis ?57 ? Cardiac circ ?89.9 ?mm Cardiac area ?6.2 ? cm?? CC / ThC ?0.53 CA / Gm ?0.27 PA main ?4.6 ?mm Ductus art. ?3.0 ?mm ?20% ?Go Rt PA branch ? 2.0 ?mm Lt PA branch ? 2.1 ?mm Ao root ?3.4 ?mm ?4% ?Sharland Ao asc ? 3.7 ?mm Ao isthmus ? 2.8 ?mm Ao desc ?3.5 ?mm PA main / Ao asc ?1.24 McGoon Index mod. ? 1.1 Ao isthmus / Ductus art. ?0.93 IVC ?3.7 ? mm SVC ?3.2 ? mm Extremities / Bony Struc Biometry: FL / BPD ?0.78 FL / HC ? 0.21 FL / AC ? 0.22 GENERAL EVALUATION ----- Cardiac activity present. FHR 150 bpm. movements: present. Presentation: cephalic Placenta: Placental site: left lateral Umbilical cord: Cord vessels: 3 vessel cord. Insertion site: placental insertion: normal Amniotic fluid: Amount of AF: normal amount. MVP 6.3 cm ECHOCARDIOGRAM ----- Situs ? situs solitus (normal) Cardiac position ?levocardia (normal) Cardiac axis ?normal Cardiac size ?normal (approx. 1/3 of thoracic area) Cardiac rhythm ?regular (normal) 4-chamber view ?normal LVOT view ? normal RVOT view ? normal 3-vessel view ? normal 5-gnuwkr-nthwzfe view ? normal High short axis view ?normal Low short axis view ? normal Aortic arch view ?normal Ductal arch view ?normal Bicaval view ?normal Venous-atrial connections ? normal size and morphology AV connections ?normal alignment VA connections ?normal size and morphology IVC ? Normal SVC ? Normal Pulmonary veins ? normal size and morphology Right atrium ?Normal Left atrium ? Normal Atrial septum ? normal size and morphology Foramen ovale ? normal (in the central third/half, flap valve in left atrium) Right ventricle ? Normal Left ventricle ?Normal Ventricular septum ?normal size and morphology Tricuspid valve ? normal size and morphology Mitral valve ?normal size and morphology Pulmonary valve ? normal size and morphology Aortic valve ?normal size and morphology Cross-over gr. arteries ? anterior great artery (confirmed to be the pulmonary artery by its branching) which ?crosses the course of the proximal aorta, indicative of normal relationship of the ?great arteries Main PA ? the main pulmonary artery can be seen bifurcating into the arterial duct and the ?right pulmonary artery Pulmonary arteries ?Normal Ascending aorta ? normal size and morphology Ductal arch ? Normal Aortic arch ? Normal Brachioceph. arteries ? normal size and morphology Descending aorta ?normal size and morphology Ductus venosus ?Normal Echogenic focus ? no Linear insertion of AV valves ? no Pericardial effusion ?no Cardiac Biometry: RA width diast ? 11.4 ? mm RA width syst ?9.6 ?mm ?31% ?Go RV width diast ? 8.6 ?mm ?16% ?Go RV width syst ?8.7 ?mm RV wall diast ?1.9 ?mm ?8% ?Go LA width diast ? 9.1 ?mm LA width syst ?8.7 ?mm ?20% ?Go LV width diast ? 7.2 ?mm ?5% ?Go LV width syst ?8.1 ?mm LV wall diast ?1.7 ?mm ?2% ?Go IV Septum diast ? 1.4 ? mm ?<1% ?Go RVOT diam ?5.0 ? mm RVOT area ?20.0 ?mm?? LVOT diam ?4.2 ? mm LVOT area ?14.0 ?mm?? LA/Ao diast ?2.64 LA/Ao syst ? 2.52 TV annulus diast ? 8.2 ?mm PV annulus syst ?4.4 ?mm MV annulus diast ? 8.5 ?mm AoV annulus syst ? 3.3 ?mm MV annulus diast / TV annulus diast ? 1.04 AoV annulus syst / PV annulus syst ?0.75 Heart Z-Scores: ? Z- FL ?Z- BPD ?Z- GA ?Z- EFW ? Zscore by RV width diast ?8.6 ?mm ?-1.00 ?-0.22 ? -0.47 ? Law LV width diast ?7.2 ?mm ?-1.99 ?-1.00 ? -1.28 ? Law TV annulus ?8.2 ?mm ?0.08 ? 0.85 ?0.67 ? Law diast MV annulus ?8.5 ?mm ?0.72 ? 1.45 ?1.21 ? Law diast PV annulus ?4.4 ?mm ?-1.09 ?-0.12 ? -0.36 ? Law syst AoV annulus ? 3.3 ?mm ?-1.92 ?-0.86 ? -1.10 ? Law syst PA main ? 4.6 ?mm ?-0.96 ?-0.28 ? -0.46 ? Law Ductus art. ? 3.0 ?mm ?-0.46 ?0.11 ?-0.07 ? Law Rt PA branch ?2.0 ?mm ?-1.79 ?-1.17 ? -1.37 ? Law Lt PA branch ?2.1 ?mm ?-0.98 ?-0.35 ? -0.60 ? Law Ao asc ?3.7 ?mm ?-1.87 ?- 1.02 ? -1.15 ? Law Ao isthmus ?2.8 ?mm ?-0.44 ?-0.16 ? -0.40 ?-0.16 ? Paramjit Ao desc ? 3.5 ?mm ?-1.04 ?-0.10 ? -0.39 ? Lwa IVC ? 3.7 ?mm ?1.19 ? 1.73 ?1.55 ? Law Cardiac Doppler: Tricuspid Valve: E-wave ?37.59 ?cm/s A-wave ?59.07 ?cm/s E / A ? 0.64 ?33% ?Hecher Mitral Valve: E-wave ?32.89 ?cm/s A-wave ?51.01 ?cm/s E / A ? 0.64 ?52% ?Hecher Pulmonary Valve: Vmax ? 63.77 ?cm/s Aortic Valve: Vmax ? 47.99 ? cm/s ? 12% ?Janes DOPPLER ----- Umbilical Artery: PI ? 1.54 ?98% ?Nathalie RI ? 0.71 ?58% ?Nathalie PS ? 29.87 ?cm/s ED ? 8.58 ? cm/s TAmax ?13.82 ?cm/s MD ? 7.05 ? cm/s S / D ?3.48 ?54% ?Nathalie Aortic Isthmus: PS ? 99.00 ? cm/s ?94% ?Arelis Ductus Arteriosus: PS ? 74.84 ?cm/s ANATOMY ----- The following structures appear normal: Head / Neck ? Cranium. Lateral ventricles. Choroid plexus. Midline falx. Cavum septi pellucidi. Cerebellum. Cisterna ?magna. Face ?Profile. Heart / Thorax ?4-chamber view. RVOT view. LVOT view. 3-vessel view. 8-jfiqyh-qtdwslt view. ?Diaphragm. Abdomen ? Stomach. Kidneys. Bladder. GROWTH OVERVIEW ----- Exam date ? GA ?BPD (mm) ? HC (mm) ?AC (mm) ? FL (mm) ?HL (mm) ?EFW (g) 04/21/2024 ?19w 1d ?43.9 ?57% ?160.6 ? 30% ?143.5 ?64% ?31.7 ?69% ?28.8 ?58% ?306 ? 75% 05/30/2024 ? 24w 5d ?59.4 ?26% ?219.9 ? 11% ?208.9 ?64% ?46.4 ?60% ? 785 ? 63% COMMENT ----- Patient's name and date of were verified by the assistant project manager prior to the exam IMPRESSION ----- Viable at 24 weeks gestation. Follow-up ultrasound with echo scheduled due to family history. The biometry is consistent with the established gestational age Normal growth with estimated weight at the 63rd percentile No structural malformations identified Amniotic fluid volume is normal Left lateral placenta with normal placental cord insertion appreciated; placenta is not low-lying A screening echocardiogram was performed today secondary to family history. Satisfactory quality examination was obtained of the fetus. Cardiac situs, size and axis were normal. The four chamber view of the heart appeared normal. There were appropriately sized atrial and ventricular chambers, and normal appearing atrioventricular valves. Further evaluation of the ventricular outflow tracts showed two great vessels which appear to arise from the appropriate ventricles. The foramen ovale was patent with right to left shunting. The superior and inferior vena cava return to the right atrium. There are at least two pulmonary veins draining into the left atrium. There was no other signs of significant intracardiac anatomic abnormality. Normal cardiac rate, contractility and rhythm were demonstrated. Color and pulsed-wave Doppler evaluation of the atrioventricular and semilunar valves were within normal limits. Two dimensional and Doppler interrogation of the aortic and ductal arches were within normal limits. There is no evidence of pericardial effusion. The ductus venosus is normal. closure of the ductus arteriosus and foramen ovale cannot be predicted on the basis of evaluation. Additionally, small ventricular or atrial septal defects and mild valve abnormalities cannot be definitely ruled out at this time. diagnosis of coarctation of the aorta is limited secondary to patency of the ductus arteriosus. Comments: The ultrasound findings and limitations in the detection of cardiac defects as well as normal cardiac anatomy were shared with your patient. For example, echocardiogram may not be able to detect all abnormalities such as very small ventricular septal defects, subtle valve abnormalities or coarctation of the aorta, nor can it predict persistence of structures such as patent foramen ovale or patent ductus arteriosus. All questions were addressed. Thank you for allowing us to participate in the care of this patient. Recommend a follow-up ultrasound at 32 to 36 weeks gestation to assess growth and development Procedure Note Gilberto Monte MD - 05/30/2024 STL FOLLOW UP ----- Kaity. Name:Kellee AREVALO Date:05/30/2024 1:19pm Pat. NO: [id number] :CHATA WILEY MD [facility]:Lolis Bear RDMS :2000Age:24 ----- INDICATION ----- Screening Follow-Up Family History of Congenital Heart Defect, MOB brother - unknowndefect around 4 years old Suspected in Fetus Tobacco Use Complicating , Cigarettes History Marijuana use in CODING ----- Diagnoses Z3A.24: Weeks of gestation O99.321-099: History Marijuana use in O99.332: Tobacco use disorder complicatingpregnancy O35.2XX0: Maternal care for (suspected) hereditarydisease in fetus Z36.3: Encounter for screening formalformations Z3A.24: Weeks of gestation O99.332: Tobacco use disorder complicatingpregnancy O35.2XX0: Maternal care for (suspected) hereditarydisease in fetus Z36.2: Encounter for other screeningfollow-up Procedures 98886: Ultrasound, uterus, real time withimage documentation, follow up, transabdominal approach per fetus 66812: Echocardiography, , cardiovascularsystem, real time with image documentation (2D), with or without M-mode recording 68622: Doppler echocardiography color flowvelocity mapping 46631: Doppler echocardiography, ,cardiovascular system, pulsed wave and/or continuous wave with spectral display; complete HISTORY ----- OB History 4 Miscarriages 3 A3 MATERNAL ASSESSMENT ----- Physical Exam Weight 79 kg. BMI 32.01 kg/m?? METHOD ----- Transabdominal ultrasound examination ----- Us . Number of fetuses: 1 DATING ----- GA by prior [id number] w + 5 d ELIZABETH by prior assessment:09/14/2024 Ultrasound examination on:05/30/2024 GA by U/S based upon:AC, BPD, EFW, Femur, HC GA by U/S24 w + 6 d ELIZABETH by U/S:09/13/2024 Method of dating:Restore dating from previous exam Assigned:based on stated ELIZABETH, selected on 04/21/2024 Assigned GA24 w + 5 d Assigned ELIZABETH:09/14/2024 BIOMETRY ----- BPD 59.4 mm 24w 2d 26%Hadlock OFD 77.2 mm 25w 2d 71%Melinda HC 219.9 mm 24w 0d 11%Hadlock AC 208.9 mm 25w 3d 64%Hadlock Femur 46.4 mm 25w 3d 60%Hadlock HC / AC 1.05 10%Nicolaides Weight Calculation: EFW 785 g 25w 0d 63%Hadlock EFW (lb,oz) 1 lb 12 oz EFW by Hadlock ([id number]) Thorax / Lungs Biometry: Thoracic circ 170.6 mm 33%[place] Thoracic area 23.2 cm?? ThC / AC 0.82 Heart / Great Vessels Biometry: Cardiac axis 57?? Cardiac circ 89.9mm Cardiac area 6.2cm?? CC / ThC 0.53 CA / Gm 0.27 PA main 4.6 mm Ductus art. 3.0 mm 20%Go Rt PA branch 2.0 mm Lt PA branch 2.1 mm Ao root 3.4 mm 4%[facility] Ao asc 3.7 mm Ao isthmus 2.8 mm Ao desc 3.5 mm PA main / Ao asc 1.24 McGoon Index mod. 1.1 Ao isthmus / Ductus art. 0.93 IVC 3.7mm SVC 3.2mm Extremities / Bony Struc Biometry: FL / BPD 0.78 FL / HC 0.21 FL / AC 0.22 GENERAL EVALUATION ----- Cardiac activity present. FHR 150 bpm. movements: present.Presentation: cephalic Placenta: Placental site: left lateral Umbilical cord: Cord vessels: 3 vessel cord. Insertion site: placentalinsertion: normal Amniotic fluid: Amount of AF: normal amount. MVP 6.3 cm ECHOCARDIOGRAM ----- Situs situs solitus (normal) Cardiac position levocardia (normal) Cardiac axis normal Cardiac size normal (approx. 1/3 ofthoracic area) Cardiac rhythm regular (normal) 4-chamber view normal LVOT view normal RVOT view normal 3-vessel view normal 3-zwafjx-egwxnhw view normal High short axis view normal Low short axis view normal Aortic arch view normal Ductal arch view normal Bicaval view normal Venous-atrial connections normal size and morphology AV connections normal alignment VA connections normal size and morphology IVC Normal SVC Normal Pulmonary veins normal size and morphology Right atrium Normal Left atrium Normal Atrial septum normal size and morphology Foramen ovale normal (in the centralthird/half, flap valve in left atrium) Right ventricle Normal Left ventricle Normal Ventricular septum normal size and morphology Tricuspid valve normal size and morphology Mitral valve normal size and morphology Pulmonary valve normal size and morphology Aortic valve normal size and morphology Cross-over gr. arteries anterior great artery(confirmed to be the pulmonary artery by its branching) which crosses the course of theproximal aorta, indicative of normal relationship of the great arteries Main PA the main pulmonary artery canbe seen bifurcating into the arterial duct and the right pulmonary artery Pulmonary arteries Normal Ascending aorta normal size and morphology Ductal arch Normal Aortic arch Normal Brachioceph. arteries normal size and morphology Descending aorta normal size and morphology Ductus venosus Normal Echogenic focus no Linear insertion of AV valves no Pericardial effusion no Cardiac Biometry: RA width diast 11.4 mm RA width syst 9.6 mm31% Go RV width diast 8.6 mm16% Go RV width syst 8.7 mm RV wall diast 1.9 mm 8%Go LA width diast 9.1 mm LA width syst 8.7 mm20% Go LV width diast 7.2 mm 5%Go LV width syst 8.1 mm LV wall diast 1.7 mm 2%Go IV Septum diast 1.4 mm<1% Go RVOT diam 5.0mm RVOT area 20.0mm?? LVOT diam 4.2mm LVOT area 14.0mm?? LA/Ao diast 2.64 LA/Ao syst 2.52 TV annulus diast 8.2mm PV annulus syst 4.4mm MV annulus diast 8.5mm AoV annulus syst 3.3mm MV annulus diast / TV annulus diast 1.04 AoV annulus syst / PV annulus syst 0.75 Heart Z-Scores: Z- FL Z- BPD Z-GA Z- EFW Zscore by RV width diast 8.6 mm -1.00 -0.22-0.47 Law LV width diast 7.2 mm -1.99 -1.00-1.28 Law TV annulus 8.2 mm 0.08 0.85 0.67 Law diast MV annulus 8.5 mm 0.72 1.45 1.21 Law diast PV annulus 4.4 mm -1.09 -0.12-0.36 Law syst AoV annulus 3.3 mm -1.92 -0.86-1.10 Law syst PA main 4.6 mm -0.96 -0.28-0.46 Law Ductus art. 3.0 mm -0.46 0.11-0.07 Law Rt PA branch 2.0 mm -1.79 -1.17-1.37 Law Lt PA branch 2.1 mm -0.98 -0.35-0.60 Thanh Ao asc 3.7 mm -1.87 -1.02-1.15 Thanh Ao isthmus 2.8 mm -0.44 -0.16-0.40 -0.16 Paramjit Ao desc 3.5 mm -1.04 -0.10-0.39 Thanh IVC 3.7 mm 1.19 1.73 1.55 Thanh Cardiac Doppler: Tricuspid Valve: E-wave 37.59 cm/s A-wave 59.07 cm/s E / A 0.6433% Kip Mitral Valve: E-wave 32.89 cm/s A-wave 51.01 cm/s E / A 0.6452% Kip Pulmonary Valve: Vmax 63.77 cm/s Aortic Valve: Vmax 47.99 cm/s12% Janes DOPPLER ----- Umbilical Artery: PI 1.54 98%Nathalie RI 0.71 58%Nathalie PS 29.87 cm/s ED 8.58 cm/s TAmax 13.82 cm/s MD 7.05 cm/s S / D 3.48 54%Nathalie Aortic Isthmus: PS 99.00 cm/s 94%Arelis Ductus Arteriosus: PS 74.84cm/s ANATOMY ----- The following structures appear normal: Head / Neck Cranium. Lateral ventricles. Choroid plexus.Midline falx. Cavum septi pellucidi. Cerebellum. Cisterna magna. Face Profile. Heart / Thorax 4-chamber view. RVOT view. LVOT view. 3-vesselview. 2-avutmz-ggforyf view. Diaphragm. Abdomen Stomach. Kidneys. Bladder. GROWTH OVERVIEW ----- Exam date GA BPD (mm) HC (mm) AC (mm) FL(mm) HL (mm) EFW (g) 04/21/2024 19w 1d 43.9 57% 160.6 30% 143.5 64%31.7 69% 28.8 58% 306 75% 05/30/2024 24w 5d 59.4 26% 219.9 11% 208.9 64%46.4 60% 785 63% COMMENT ----- Patient's name and date of were verified by the assistant project manager prior tothe exam IMPRESSION ----- Viable at 24 weeks gestation. Follow-up ultrasound with fetalecho scheduled due to family history. The biometry is consistent with the established gestational age Normal growth with estimated weight at the 63rd percentile No structural malformations identified Amniotic fluid volume is normal Left lateral placenta with normal placental cord insertion appreciated;placenta is not low-lying A screening echocardiogram was performed today secondary to familyhistory. Satisfactory quality examination was obtained of the fetus. Cardiac situs, size and axis were normal. The four chamberview of the heart appeared normal. There were appropriately sized atrial and ventricular chambers, and normal appearingatrioventricular valves. Further evaluation of the ventricular outflow tracts showed two great vessels which appear to arisefrom the appropriate ventricles. The foramen ovale was patent with right to left shunting. The superior and inferior vena cavareturn to the right atrium. There are at least two pulmonary veins draining into the left atrium. There was no other signs ofsignificant intracardiac anatomic abnormality. Normal cardiac rate, contractility and rhythm were demonstrated. Color andpulsed-wave Doppler evaluation of the atrioventricular and semilunar valves were within normal limits. Two dimensional and Dopplerinterrogation of the aortic and ductal arches were within normal limits. There is no evidence of pericardial effusion. The ductusvenosus is normal. closure of the ductus arteriosus and foramen ovale cannot be predicted on the basis of prenatalevaluation. Additionally, small ventricular or atrial septal defects and mild valve abnormalities cannot be definitely ruled outat this time. diagnosis of coarctation of the aorta is limited secondary to patency of the ductus arteriosus. Comments: The ultrasound findings and limitations in the detection ofcardiac defects as well as normal cardiac anatomy were shared with your patient. For example, echocardiogram may notbe able to detect all abnormalities such as very small ventricular septal defects, subtle valve abnormalities or coarctation ofthe aorta, nor can it predict persistence of structures such as patent foramen ovale or patent ductus arteriosus.All questions were addressed. Thank you for allowing us to participate in the care of this patient. Recommend a follow-up ultrasound at 32 to 36 weeks gestation to assessfetal growth and development Chata Wiley MD ORDERABLES documented in this encounter Visit Diagnoses Diagnosis Encounter for screening for malformation Family history of congenital heart defect Family history of congenital anomalies documented in this encounter Care Teams Security Patrol Driver Relationship Specialty Start Date End Date Laura Reid MD PCP - General Pediatrics 07/02/17 documented as of this encounter
--- OUTSIDE RECORDS SUMMARY | 2024-08-30 03:00 | XMS_ITS | Encounter Summary ---
Author Organization [facility] Address [address] [place] [address] Care Team Providers Care Muffler Tender Name Role Phone Laura Reid MD Primary Care Provider [phone] Reason for Visit * Reason Comments Dizziness Encounter Details Date Type Department Care Team (Late Contact Info) Description 07/06/2015 7:52 AM RESEARCH LABORATORY MANAGER - 07/06/2015 11:59 PM [facility] Hospital Encounter [facility] [address] [place] [address] Jazlyn Bliss MD [address] [place] [phone] Discharge Disposition: Home or Self Care Social History Tobacco Use Types Packs/Day Years Used Date Smoking Tobacco: Never Assessed Alcohol Use Standard Drinks/Week Comments No 0 (1 standard drink = 0.6 oz pur e alcohol) Sex and Gender Information Value Date Recorded Sex Assigned at Not on file Gender Identity Not on file Sexual Orientation Not on file documented as of this encounter Last Filed Vital Signs Vital Sign Reading Time Taken Comments Blood Pressure 124/78 07/06/2015 8:17 AM RESEARCH LABORATORY MANAGER Pulse 100 07/06/2015 8:17 AM RESEARCH LABORATORY MANAGER Temperature - - Respiratory Rate 24 07/06/2015 8:17 AM RESEARCH LABORATORY MANAGER Oxygen Saturation 99% 07/06/2015 8:17 AM RESEARCH LABORATORY MANAGER Inhaled Oxygen Concentration - - Weight 65.2 kg (143 lb 11.8 oz) 07/06/2015 8:17 AM RESEARCH LABORATORY MANAGER Height 159.2 cm (5' 2.68 ) 07/06/2015 8:17 AM CS T Body Mass Index 25.73 07/06/2015 8:17 AM RESEARCH LABORATORY MANAGER Body Mass Index Percentile 86.40% 07/06/2015 8:1 7 AM RESEARCH LABORATORY MANAGER Growth Chart: [facility] (Girls, 2- 20 Years) documented in this encounter Medications at Time of Discharge Medication Sig Dispensed Refills Start Date End Date azithromycin (ZITHROMAX) 250 MG tablet Take 250 mg by mouth once daily 08/02/2015 drospirenone-ethinyl estradiol (VESTURA) 3-0.02 MG tablet Take 1 Tab by mouth once daily 09/19/2019 fludrocortisone (FLORINEF) 0.1 MG tabletIndications:syncop e Take 1 Tab by mouth once daily Reasons: syncope 30 Tab 5 07/06/2015 01/03/2016 FLUoxetine (PROZAC) 20 MG capsule Take 60 mg by mouth once daily 01/03/2016 documented as of this encounter Progress Notes * Jazlyn Bliss MD - 07/06/2015 8:15 AM CST Syncope Josephine Alejandre [id number] Chief Complaint/Reason for Visit: Chief Complaint Patient presents with Headache ??? Syncope History of Present Illness: I had the pleasure of seeing your patient, Josephine Alejandre, at [facility] 07/06/2015. As you may recall, Josephine Alejandre is a 15 y.o. female who was noted to have recent episodes of syncope. Onset was 3 months ago, with worsening course since that time. She has had eight episodes of syncope since onset. Started during illness with cough, post tussive syncope. Fatined once a week since onset. Has fainted at school and in locations other than school. No specific time of day. Once before lunch, another after lunch, other spells in early afternoon. Yesterday she had a witnessed episode at school where she was reportedly unconscious for 10 minutes. She was taken by ambulance to [facility] where the below testing was performed - all normal. Patient describes the episode as syncope occurred in setting of normal non- stressful ADLs. Patient also has associated symptoms of dizziness , she notes her vision blurs, she gets wobbly. She doesn't have time to sit down prior to losing conciousness. No palpitations, chest pain. Does complain of pressure in her back and neck. She had a fall freshman year with resultant hair line fracture, since then pain in neck. The patient denies no associated neurologic, cardiac or gastrointestinal symptoms. Taking culprit meds?: No suspect medicati ons Medical therapy for depression. No change in level of depression. Has been on Prozac for 6 months. No recent change in dose. Last dosage increase 2 months ago. Constant headaches, evaluated two yearsago with CT scan. Seen at [facility] for that issue. Followed by Dr. Reyes for depression. Headaches twice weekly. Seems to her mother they are better than they used to be. Now complaint of fatigue. Sometimes falls asleep at school. Previous Testing for this Problem: EKG: abnormal per computer read out with ST depression and Blood Tests: normal BMP, troponin and UA Iron, mono all normal. Past Medical History: No hospital stays or surgeries. 6 weeks . Reflux. 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 Current Medications: No current outpatient prescriptions. Family History: Adopted, family history unknown. Social History: Josephine lives with adoptive parents Special Needs: None Barriers to Communication: Patient - None. Parents/Caregiver - None. Preferred Language:Hungarian School: Yes, 11th grade. School is hard for her. She falls asleep after school. Smoking/Alcohol/Drug Use or Exposure: No Review of Systems: A 10 system review was negative except for the above mentioned. Physical Exam: Blood pressure 124/78, pulse 100, resp. rate 24, height 159.2 cm, weight 65.2 kg (143 lb 11.8 oz), SpO2 99 %. Orhtostatics show an increase in heart rate with change in position. Gen: awake, alert, and interactive HEENT: Normocephalic and atraumatic, pupils equal, round, and reactive to light, extraocular movements intact, OP clear with moist mucous membranes Neck: supple, non-tender, with full ROM, and no lymphadenopathy Chest: breath sounds symmetrical without rales or wheezes Cardiovascular: Normal rate. Regular rhythm. Normal S1, S2. No murmurs. No rubs. No clicks. No gallops. Abdomen: abdomen is soft, nontender, and nondistended without hepatosplenomegaly or masses Extremities: no edema Skin: No rashes or abnormal dyspigmentation Neurological: Mental status normal, no cranial nerve deficits, normal strength and tone, normal gait Electrocardiogram(performed yesterday and reviewed by me today): An electrocardiogram was performed today which shows a sinus rhythm at a rate of 81bpm. The WV interval is Normal. The QRS duration is Normal. The QT is Normal. There is no atrial enlargement or ventricular hypertrophy. The ST segments and T waves are Normal. Impression: Josephine is a 15 y.o. female with a diagnosis of Vasovagal syncope. Plan: Initiate Florinef 0.1mg once daily. Activity recommendations: No restrictions. Increase fluid intake to 2 liters per day, monitoring urine color to assess state of hydration. Use particular caution to maintain very good hydration during heat exposure or intense exercise. Limit intake of caffeine. Recognize presyncopal symptoms and immediately assume the head below heart position. Josephine is cleared from a cardiac perspective and does not require any cardiac restrictions. She may undergo all dental and surgical procedures routinely, and does not require antibiotic prophylaxis at times of predictable risk. Follow up by phone. Sincerely, Jazlyn Bliss M.D. ARCH LABORATORY MANAGER documented in this encounter Plan of Treatment Not on file documented as of this encounter Procedures Procedure Name Priority Date/Time Associated Diagnosis Comments CARDIAC EKG ORDER 07/12/2015 5:0 6 PM RESEARCH LABORATORY MANAGER IMAGING/RADIOLOGY/X RAY RESULTS ORDER 07/12/2015 4:41 PM RESEARCH LABORATORY MANAGER LAB RESULTS ORDER 07/12/2015 4:4 1 PM RESEARCH LABORATORY MANAGER documented in this encounter Results * CARDIAC EKG ORDER (07/12/2015 5:06 PM RESEARCH LABORATORY MANAGER) Narrative 07/12/2015 5:06 PM RESEARCH LABORATORY MANAGER Ordered by an unspecified provider. Scanned Document CARDIAC SERVICES ORD ERABLES * IMAGING/RADIOLOGY/XRAY RESULTS ORDER (07/12/2015 4:41 PM RESEARCH LABORATORY MANAGER) Anatomical Region Laterality Modality Other Narrative 07/12/2015 4:41 PM RESEARCH LABORATORY MANAGER Ordered by an unspecified provider. Scanned Document IMAGING * LAB RESULTS ORDER (07/12/2015 4:41 PM RESEARCH LABORATORY MANAGER) Narrative 07/12/2015 4:41 PM RESEARCH LABORATORY MANAGER Ordered by an unspecified provider. Scanned Document LAB - THERAPEUTIC DR UG MONITORING ORDERABLES documented in this encounter Visit Diagnoses Diagnosis Syncope and collapse- Primary documented in this encounter Care Teams Muffler Tender Relationship Specialty Start Date End Date Laura Reid MD PCP - General Pediatrics 07/06/15 10/27/19 documented as of this encounter
--- OUTSIDE RECORDS SUMMARY | 2024-08-30 03:00 | XMS_ITS | Encounter Summary ---
Author Organization [facility] Address [address] [place] [address] Care Team Providers Care Facilities Maintenance Manager Name Role Phone Laura Reid MD Primary Care Provider Reason for Visit * Reason Comments Sleep Problem sleep study follow u p, follow up on excessive sleepiness iron and vitamin D Encounter Details Date Type Department Care Team (Latest Contact Info) Description 01/03/2016 10:27 AM CDT - 01/03/2016 11:59 PM T Hospital Encounter [facility] - Sleep Services [address] [facility] [facility] [address] [place] [address] [place] [address] [place] [address] [address] [place] [address] Discharge Disposition: Home or Self Care Social [...] Sign Reading Time Taken Comments Blood Pressure 96/66 01/03/2016 10:29 AM CDT Pulse 56 01/03/2016 10:29 AM CDT Temperature - - Respiratory Rate - - Oxygen Saturation - - Inhaled Oxygen Concentration - - Weight 68.5 kg (151 lb 0.2 oz) 01/03/20 16 10:29 AM CDT Height 160.7 cm (5' 3.25 ) 01/03/2016 1 0:29 AM CDT Body Mass Index 26.54 01/03/2016 10:29 AM CDT Body Mass Index Percentile 88.29% 01/02 10:29 AM CDT Growth Chart: [facility][NOTE 3] (Girls, 2- 20 Years) documented in this encounter Discharge Instructions * Patient Instructions* Moody Cotter MD - 01/03/2016 11:12 AM CDT 1. Please check [employer]. If you do not receive a call from us with the results within 3-4 business days of doing the labs please call our office. 2. Follow-up in clinic in 3 months. 3. Try to exercise daily. 4. Please call us with any questions. ([phone]) documented in this encounter Medications at Time of Discharge Medication Sig Dispensed Refills Start Date End Date DiphenhydrAMINE HCl (ALLERGY MED PO) Take 1 Tab by mouth once daily as needed 09/19/2019 drospirenone-ethinyl estradiol (VESTURA) 3-0.02 MG tablet Take 1 Tab by mouth once daily 09/19/2019 ferrous sulfate 325 (65 FE) MG tablet Take 325 mg by mouth once daily 02/08/2016 lamoTRIgine (LAMICTAL) 200 MG tablet Take 1 Tab by mouth once daily 12/16/2015 09/19/2019 Pseudoephedrine HCl (SUDAFED 24 HOUR PO) Take 1 Tab by mouth once daily as needed 09/19/2019 vitamin D3 (CHOLECACIFEROL) 5000 UNITS Take 1 Tab by mouth once daily 30 Tab 3 09/01/2015 02/08/2016 documented as of this encounter Progress Notes * Moody Cotter MD - 01/03/2016 10:46 AM CDT Follow-up Clinic Visit Pediatric Sleep Medicine [facility] [place], [place] Chief Complaint Patient presents with ??? Sleep Problem sleep study follow up, follow up on excessive sleepiness iron and vitamin D HPI: Josephine Alejandre is a 15 y.o. female who presents to the Pediatric Sleep Medicine Clinic on 01/03/2016 for Excessive sleepiness. Josephine was accompanied by her mother who assisted in providing the history. General self-assessment of the patients sleep: worse 1. Excessive sleepiness Neg diag psg and MSLT 09/12/15 SUMMARY RDI Min SaO2 1.9 97% AHI: 1.9 Obstructive AHI: 1.7 Mean sleep latency: 13.5 min No SOREMS She is dosing off at school some Her grandmother reports she has been happier and has been with the family more. Her depression was worse a couple of months ago and she was admitted for 4 days. Her symptoms are now better on Lamictal. 2. Low iron stores The patient has been taking Iron 1 per day. Instead of bid due to different instruction by the pharmacist. It does not help. The patient currently does not have leg pains at night. The patient currently does not have restlessness in their legs at night. The patient does not have constipation from the Iron. They are no using Miralax. The patient has had acute illness in the last 4 weeks. She had a stomach ache. No fevers 3. Vitamin D deficiency Taking Vitamin Daily 4. Other depression SLEEP SCHEDULE: Weekday Bedtime:11:00PM Amount of Time to Fall Asleep:within minutes Awakenings at Night:none Amount of time to fall back asleep after awakenings: within minutes Weekday Wake Time:6:30AM Rise time after waking up:within minutes They use an alarm or the parent wakes them: No Weekend Bedtime:12:30AM Weekend Wake Time: 10:30AM Rise time after waking up: within minutes Naps:One per day for 4 h in the afternoon MODIFIED EPWORTH SLEEPINESS SCALE: 19 Patient Active Problem List Diagnosis ??? Syncope ??? Low iron stores ??? Vitamin D deficiency ??? Excessive sleepiness Current Outpatient Prescriptions Medication ??? lamoTRIgine (LAMICTAL) 200 MG tablet ??? DiphenhydrAMINE HCl (ALLERGY MED PO) ??? ferrous sulfate 325 (65 FE) MG tablet ??? vitamin D3 (CHOLECACIFEROL) 5000 UNITS ??? drospirenone-ethinyl estradiol (VESTURA) 3-0.02 MG tablet ??? Pseudoephedrine HCl (SUDAFED 24 HOUR PO) No current facility-administered medications for this encounter. Allergies Allergen Reactions ??? Topamax [Topiramate] Psychiatric Psychological problems Exam: Vitals: 01/03/16 1029 BP: 96/66 Pulse: 56 Weight: 68.5 kg (151 lb 0.2 oz) Height: 160.7 cm (5' 3.25 ) Body mass index is 26.53 kg/(m^2). General: well appearing child, no acute distress Psych: alert, active and appropriate behavior and attention for age Assessment/Plan: 1. Excessive sleepiness Neg diag psg with MSLT Continue to replace Vitamin D and iron stores Check the below labs Appears to be related to her depression COMPREHENSIVE METABOLIC PANEL TSH REFLEX FREE T4 CBC NO DIFFERENTIAL VITAMIN D 25-HYDROXY FERRITIN IRON + TIBC PANEL 2. Low iron stores CBC NO DIFFERENTIAL FERRITIN IRON + TIBC PANEL 3. Vitamin D deficiency VITAMIN D 25-HYDROXY 4. Other depression F/u with child psychiatry CC: ?? Laura Reid, PCP Dr. Gamal Reyes, Child psychiatrist. The below plan was given to the parent. Patient Instructions 1. Please check Josephine Alejandre labs. If you do not receive a call from us with the results within 3-4 business days of doing the labs please call our office. 2. Follow-up in clinic in 3 months. 3. Try to exercise daily. 4. Please call us with any questions. ([phone]) Thank you for allowing me to participate in the care of your patient. Please call us with any questions. Ashley Cotter MD D, [facility]- Sleep Medicine Pediatric Sleep Specialist [facility] [address], [address] [place] [address] (phone) [phone] (fax) documented in this encounter Plan of Treatment Scheduled Orders Name Type Priority Associated Diagnoses Orde r Schedule COMPREHENSIVE METABOLIC PANEL Lab Routine Excessive sleepiness Ordered: 01/03/2016 TSH REFLEX FREE T4 Lab Routine Excessive sleepiness Ordered: 01/03/2016 CBC NO DIFFERENTIAL Lab Routine Excessive sleepiness Low iron stores Ordered: 01/03/2016 VITAMIN D 25-HYDROXY Lab Routine Excessive sleepiness Vitamin D deficiency Ordered: 01/03/2016 FERRITIN Lab Routine Excessive sleepiness Low iron stores Ordered: 01/03/2016 IRON + TIBC PANEL Lab Routine Excessive sleepiness Low iron stores Ordered: 01/03/2016 documented as of this encounter Visit Diagnoses Diagnosis Excessive sleepiness- Primary Hypersomnia, unspecified Low iron stores Other abnormal blood chemistry Vitamin D deficiency Other depression documented in this encounter Care Teams Facilities Maintenance Manager Relationship Specialty Start Date End Date Laura Reid MD PCP - General Pediatrics 07/06/15 10/27/19 documented as of this encounter
--- OUTSIDE RECORDS SUMMARY | 2024-08-30 03:00 | XMS_ITS | Encounter Summary ---
Author Organization [facility] Address [address] [place] [address] Care Team Providers Care Oven Operator Automatic Name Role Phone Unavailable Primary Care Provider Unavailabl e Encounter Details Date Type Department Care Team (Late st Contact Info) Description 07/05/2015 - 07/05/2015 3:51 PM OIL PROCESS STILLMAN Emergency ER at [address] [address] Discharge Disposition: ED Dismiss - Never Arrived Social History Tobacco Use Types Packs/Day Years [...]
--- OUTSIDE RECORDS SUMMARY | 2024-08-30 03:00 | XMS_ITS | Encounter Summary ---
Author Organization [facility] Address [address] [place] [address] Care Team Providers Care Machine Package Sealer Name Role Phone Laura Reid MD Primary Care Provider [phone] Reason for Visit * Reason Onset Date Comments Results 09/01/2015 Encounter Details Date Type Department Care Team (Late st Contact Info) Description 09/01/2015 Telephone [facility] Sleep Services [address] , [address] [place] [id number] Moody Cotter MD [address] [place] [address] Results Social History Tobacco Use Types Packs/Day Years Used Date Smoking Tobacco: Never Alcohol Use Standard Drinks/Week Comments No 0 (1 standard drink = 0.6 oz pur e alcohol) Sex and Gender Information Value Date Recorded Sex Assigned at Not on file Gender Identity Not on file Sexual Orientation Not on file documented as of this encounter Miscellaneous Notes * Telephone Encounter - Caron Kapoor MA - 09/03/2015 10:25 AM CONSUMER EDUCATOR Spoke with mom regarding results UMER EDUCATOR * Telephone Encounter - Caron Kapoor MA - 09/03/2015 10:24 AM CONSUMER EDUCATOR Left message on voicemail to call the office UMER EDUCATOR * Telephone Encounter - Moody Cotter MD - 09/01/2015 9:52 AM CST Caron Please call and tell their caregiver that the Ferritin level (main Iron level) is 22 and our goal is 70-90. The patient should start taking Ferrous Sulfate (Iron) per the order I sent to their pharmacy and they should also take Miralax as needed for constipation. The patient's Vitamin D level is also not optimal at 12 and our goal is 40-70. The patient should also start taking Vitamin D3 5,000 units daily. I sent in a prescription, but they might have to buy it over the counter. They should follow the rest of our plan as previously discussed. UMER EDUCATOR documented in this encounter Plan of Treatment Not on file documented as of this encounter Visit Diagnoses Diagnosis Low iron stores- Primary Other abnormal blood chemistry Vitamin D deficiency documented in this encounter Care Teams Machine Package Sealer Relationship Specialty Start Date End Date Laura Reid MD PCP - General Pediatrics 07/06/15 10/27/19 documented as of this encounter
--- OUTSIDE RECORDS SUMMARY | 2024-08-30 03:01 | XMS_ITS | Encounter Summary ---
Author Organization [facility] Address [address] [place] [address] Care Team Providers Care Sheet Metal Assembler And Riveter Name Role Phone Laura Reid MD Primary Care Provider Unava ilable Reason for Referral * Outpatient Services (Routine) - Closed Specialty Diagnoses / Procedures Referred By Contac t Referred To Contact Cardiology Diagnoses Generalized hypermobility of joints Procedures ECHO PEDIATRIC COMPLETE Alysia Valdez MD [address] [facility] [address] [place] [address] [facility] Ped Non Invasive Cardiol [place] [address] [place] [address] Referral ID Status Reason Start Date Expiration Date V isits Requested Visits Authorized [id number] Closed STL CTS 07/20/2017 08/19/2017 1 1 T PUSHER Reason for Visit * Reason Comments Advice Only Encounter Details Date Type Department Care Team (Late st Contact Info) Description 07/02/2017 10:30 AM YEAST PUSHER Office Visit [facility] [address] [place] [address] Alysia Valdez MD [address] [facility] [address] [place] [address] Generalized hypermobility of joints (Primary Dx) Social History Tobacco Use Types Packs/Day Years Used Date Smoking Tobacco: Never Assessed Sex and Gender Information Value Date Recorded Sex Assigned at Not on file Gender Identity Not on file Sexual Orientation Not on file documented as of this encounter Last Filed Vital Signs Vital Sign Reading Time Taken Comments Blood Pressure 102/81 07/02/2017 11:04 AM YEAST PUSHER Pulse - - Temperature - - Respiratory Rate - - Oxygen Saturation - - Inhaled Oxygen Concentration - - Weight 76.2 kg (168 lb) 07/02/2017 11:04 AM YEAST PUSHER Height 157.5 cm (5' 2 ) 07/02/2017 11:04 AM YEAST PUSHER Head Circumference 55.9 cm 07/02/2017 11:04 AM CS T Body Mass Index 30.73 07/02/2017 11:04 AM YEAST PUSHER documented in this encounter Progress Notes * Alysia Valdez MD - 07/02/2017 12:32 PM CST Medical Genetics Initial Visit Re: Josephine Alejandre : 2000 Date of visit: 07/02/17 Referring: Laura Reid MD CC: Evaluate for connective tissue disorder HPI: Josephine Alejandre is a 17 y.o. female who presents for evaluation of possible connective tissue disorder. This is her first visit to [facility]. She was referred by Laura Reid MD. She is accompanied by her mother, who in addition to the medical record is the source of the history. 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 She can do the following joint tricks: Thumbs to forearm, easily do the splits, hyperextend knees. Not able to clasp hands behind back and bring to front without unclasping. She has not had any chito dislocations. She does have subluxations of the left shoulder where is falls out of place but goes back in. No joint surgeries. She did have a hairline fracture of a vertebra in her back from a fall which has cause her chronic back pain. No bracing or surgery was needed for this. Pain: chronic joint pain in the ankles, knees, shoulders, back. Pain improves with rest and is worse with movement. Pain managed with over the counter ibuprofen or tylenol. Able to keep up with peers. Joints do not get red, warm or swollen. She has used physical therapy for back pain after her falland fracture, but not for generalized joint pain. Skin: + stretchmarks over hips and breasts at puberty, few on upper arms, felt to be typical amount. No abnormal scarring. No stitches or surgery. No poor wound healing. No history of hernia or prolapse. Heme: No excessive bruising. No prolonged bleeding or bleeding of gums. MSK: No TMJ clicking. No scoliosis or abnormal chest shape. + flat feet, has not tried orthotics orinserts. Not the tallest one in the class. GI: + chronic abdominal pain recently diagnosed with endometriosis. No diagnosis of IBS or reflux/GERD. + frequent constipation. No episodes of diarrhea, vomiting. Cardiac: No history of chest pain. + episodes of syncope, ~ 5 total. She feels lightheaded and thenpasses out. She is usually standing or walking when this happens. No episodes of tachycardia, palpitations. She saw a prune washer who felt she had vasovagal syncope and recommended increased salt and water intake. She had an EKG in the ER and at cardiology which was normal. No echocardiogram has been performed. Most recent episodes were years ago. Ophtho: + mild myopia, needs glasses to read the board. No history of dislocated lens retinal detachment or other eye problem. She has had a dilated eye exam. Psychology: + history of depression. She sees as psychologist and psychiatrist and takes citalopram, abilify, and lamictal. She had difficulty with the stress of her private high school and developedschool anxiety. She was transitioned to the public high school and received help from the guidance counselors there and was able to graduate. She is working at [employer] while considering her next s teps for college. 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 Full term. Limited information due to adoption. Developmental history: Normal developmental milestones. No concerns with development. No special help in school, no therapies. She completed 12th grade. Other Medical concerns: - migraines, saw neurology at [facility]. She had a head CT and brain MRI which were normal per mom. - endometriosis, chronic abdominal pain, heavy periods. She was put on OCPs with improvement. - no history of dental crowding or high arched palate Hospitalizations: none Surgeries: none Family Health History: Josephine was adopted and no information is available about her family history. She had two older maternal siblings, but no information about their health. Biological mother usedcocaine during but no other information about her health. Ethnic background on mother's side: . Please see scanned pedigree for complete family history. Social history: family lives in [place], [place]. Lives with adoptive parents, sister, brother, andtwo nephews. Medications: Current Outpatient Prescriptions: ??? hydrOXYzine pamoate (VISTARIL) 50 mg capsule, Take 50 mg by mouth 2 times daily., Disp: , Rfl: ??? ARIPiprazole (ABILIFY) 5 mg tablet, Take 40 mg by mouth 2 times daily., Disp: , Rfl: ??? lamoTRIgine (LaMICtal) 150 mg tablet, Take 300 mg by mouth 2 times daily., Disp: , Rfl: ??? citalopram (CeleXA) 20 mg tablet, Take 40 mg by mouth 2 times daily., Disp: , Rfl: Allergies: Not on File ROS: Constitutional: No fevers or abnormal weight loss Eye: no coloboma or nystagmus ENT: No ear infections, no cleft palate, no hearing loss Resp: No breathing problems or tachypnea, no intubation CV: No history of heart defect, murmur or abnormal rhythm GI: No constipation or diarrhea, no vomiting : No history of hematuria or UTI, no history of inguinal hernia Skin: No known birthmarks, no history of rash Heme: No easy bruising or bleeding, no lymphadenopathy MSK: No joint swelling or redness, no limitation of movement Neuro: No seizures, no abnormal muscle tone Behavior: No history of lethargy or encephalopathy Diagnostics: None Physical exam: Vital signs: Vitals: 07/02/17 1104 BP: 102/81 Last documented weight: Weight: 76.2 kg (168 lb) (07/02/17 1104) (91%), Length 157 cm (19%), OFC 55.9 cm = 160. /HT 1.07 positive. LS = 82. US/LS = 0.91 negative General: No distress, well developed. Cranium: Normocephalic. Face and cranium symmetric. HEENT: upslanting palpebral fissures. Sclerae white. No hypo or hypertelorism. No malar flattening,deep set eyes or long face. Ears are of normal set shape and rotation with patent canals. No preauricular pits, tags, or creases. Nose is of normal shape and form. Philtrum and lips of normal structure. Mucous membranes are pink and moist without lesions. Palate intact, uvula single and midline. Nor mal dentition. Normal jaw size and symmetry. Pupils symmetric without coloboma. Normal eyelashes and brows. Hair is normal texture, thickness, and location. Neck is normal length without excess nuchal skin. Chest: Chest shape normal, without pectus excavatum. Heart RRR without murmur. Lungs clear to auscultation. Abdomen: nondistended. : Deferred. Back: Straight, no scoliosis. Skin: normal skin texture, no hyperelasticity. + piezogenic papules. + striae on hips, upper arms, typical appearance. No bruising. No abnormal scarring. No hypo- or hyperpigmented macules. No rash. Extremities: + hypermobility of large and small joints. Beighton score: 5th digits to 90 degrees: +2, thumbs to volar surface +2, elbows hyperextend +2, knees hyperextend +2, palms to floor +1 = 9/9.Hands and feet with normal digits, creases and nails. No poly- or syndactyly. No shortening of extremities. No arachnodactyly. Thumb and wrist sign negative. + flat feet with pronation. No hindfoot deformity. Neuro: Alert and oriented x3. Normal eye movements. PERRL. Face is strong and symmetric. Palate andtongue movement appeared symmetric and full. Normal speech and gait. No abnormal movements, seizures, clonus, or tremor. Impression and Recommendations: ASSESSMENT: Encounter Diagnosis Name Primary? Generalized hypermobility of joints Yes PLAN: Orders Placed This Encounter ??? ECHO PEDIATRIC COMPLETE Josephine Alejandre is a 17 y.o. female with hypermobility and chronic joint pain. She has piezogenic papules and a high armspan to height ratio, but no other systemic signs of Joe Danlos syndrome, hypermobile type. She has not yet been assessed for the cardiac findings which count toward the EDS criteria (MVP and aortic dilation), so I will order and echocardiogram today. At this time, she does not meet clinical criteria for hEDS. Criteria are copied below. There is no genetic testing for EDS hypermobility type at this time because the gene is unknown. Diagnosis is based on the clinical assessment of hypermobility and skin findings, and the absence of symptoms of a malformation syndrome or other type of connective tissue disorder. Josephine Alejandre does not exhibit any features of Marfan syndrome or other subtype of EDS. She does not meet clinical criteria for Marfan syndrome based on the 2010 Easton criteria. General recommendations for joint hypermobility: 1. No specific physical activity restrictions. Use common sense. If it hurts, don't do it. Physicalactivities that keep the muscles toned and strong help to stabilize loose joints and in the long-run will improve fatigue and endurance. Having good muscle mass helps to stabilize loose joints, reducing subluxations and dislocations. Swimming is also a good exercise for maintaining muscle mass in alow-impact manner that is less stressful for joints. Physical therapy should be done in a way slowly increase muscle tone and mass without causing pain. Physical therapy should not cause pain during or after a session. If it is causing pain, intensity and length should be reduced. Try not to demonstrate joint tricks; instead maintain healthy range of motion. PT referral provided today on paper Rafi can take this closer to home. 2. Josephine has very flat feet with pronation. This is likely contributing to her ankle, knee, hip pain. She should at a minimum use a shoe with good arch support. Alternatively, try over the counter orthotics or custom orthotics. Avoid flip flops and flats. Referral for custom orthotics was offeredbut family would prefer to try the OTC options first. 3. Ibuprofen or naproxen OTC as needed is the first line pain medication for individuals with jointpain. Other medications for joint pain in adults include Gabapentin, amitriptyline, Celebrex, Mobic, Relafen, and Cymbalta. Avoid narcotics if possible. I can provide a referral to a paint maker if this becomes necessary. We discussed the interaction of mind and body and that good treatment of her anxiety and depression will allow her mind to cope with pain in a more positive way. Pain management specialists can also work with counselors and alternative therapies in addition to pain medications. 4. Screening echocardiogram was ordered today to evaluate for aortic root dilation and MVP. 5. Regarding genetic testing. Some women who are Fragile X carriers have hypermobility. Fragile X carrier screening is recommended for all women of childbearing age due to the high risk of having affected children. I would recommend that Josephine have screening at some point prior to beginning a family. Labs: None. Follow up: No follow up is required, but I am available at any time for another visit or questions/concerns. If Josephine were to develop other systemic signs of connective tissue disorder (organ prolapse, hernia, abnormal scarring, pneumothorax, scoliosis) the family should call me for reevaluation. Thank you for this referral. It was a pleasure to meet Josephine Alejandre and her family today. Please contact the genetics office with any questions you may have. Alysia Valdez MD [facility] Time spent with the patient 75 minutes with >50% spent in counseling and coordination of care. T PUSHER documented in this encounter Plan of Treatment Not on file documented as of this encounter Results * ECHO PEDIATRIC COMPLETE (08/10/2017 1:17 PM YEAST PUSHER) 08/10/2017 12:5 6 PM YEAST PUSHER Narrative INTERFACE SYSTEM - 08/11/2017 9:01 AM YEAST PUSHER *[facility], [facility]* Pediatric Echocardiogram Report M-mode, complete 2D, complete spectral Doppler, and color Doppler PATIENT: ?Josephine Alejandre ??*STUDY DATE/TIME:* Aug 10 2017 ?12:56PM ? *HEIGHT:* 157.5cm / (62in) /AGE: ?2000 / ?*WEIGHT:* 76.2kg / (167.6lb) ?17yr GENDER: ? F ? *BSA/BMI:* 1.85m^2 / 30.7kg/m^2 ?*BP:* 116 / 71 *IMAGING FACILITY:* [facility] *REFERRING PHYSICIAN:* Alysia Valdez *ORDERING PROVIDER:* Alysia Valdez *READING PHYSICIAN:* Conrado Roe M.D. *BUTTONHOLE MARKER:* Yanet Deshpande RDCS, JALEN REASON FOR EXAM: ? Hypermobility, R/O Joe-Danlos. STUDY AND PROCEDURE DATA: ??Pediatric transthoracic echocardiography. Institution: [facility] . ?Height percentile: 18.9. ?Weight percentile: 91.6. CONCLUSIONS: 1. Normal echocardiogram. 2. No mitral valve prolapse. 3. No aortic dilation. FINDINGS: ANATOMIC RELATIONSHIPS - Normal atrial situs. Ventricular d-loop. Normally related ??great vessels. VEINS AND ATRIA Atrial septum - The septum is normal. There is no atrial level shunt. Right atrium - Normal in size right atrium. Systemic veins: - Normal drainage of the right superior vena cava and the ??inferior vena cava into the right atrium. Left atrium - Normal in size left atrium. Pulmonary veins: - Normal drainage of the right upper, right lower, left ??upper, and left lower pulmonary veins into the left ??atrium. A-V CANAL Tricuspid valve - The valve is structurally normal. - Trivial regurgitation. Mitral valve - The valve is structurally normal. VENTRICLES Right ventricle - The cavity size is normal. Systolic function is ??qualitatively normal. The estimated right ventricular ??pressure is 20mm Hg plus the right atrial pressure. Left ventricle - The cavity size is normal. Systolic function is ??qualitatively normal. Ventricular septum - Thickness is normal. There is no ventricular level shunt. CONOTRUNCUS Pulmonary valve - The valve is structurally normal. - Transvalvular velocity is within the normal range. Trivial ??regurgitation. Aortic valve - The valve is structurally normal. The valve is trileaflet. - Transvalvular velocity is within the normal range. Coronaries - The left main has a normal origin from the left sinus of ??Valsalva. Left coronary origin confirmed by color Doppler. ??The right coronary arises normally from the right sinus of ??Valsalva. Right coronary origin confirmed by color ??Doppler. GREAT ARTERIES Pulmonary arteries: - The main pulmonary and proximal branch pulmonary arteries ??are normal. The peak flow velocities are within the normal ??range. Aorta - Left aortic arch and normal branching pattern is ??demonstrated. - The ascending aorta, transverse arch, and descending aorta ??are normal. - The peak flow velocities are within normal range. PERICARDIUM - There is no significant pericardial effusion. MEASUREMENTS: Left ventricle ? Value ? Reference ?? Z LV ID, ED, MM ?4.83 ??cm ?4.34 - 5.81 -0.7 LV ID, ES, MM ?3.07 ??cm ?2.58 - 3.99 -0.6 LV fx shortening, MM ? 36 ?% ? 29 - 43 ? 0.4 LV PW thickness, ED, ? 0.72 ??cm ?0.67 - 1.16 -1.6 MM LV wall mass, MM ? (L) ? 111 ?? g ? 115 - 269 ?? -2.1 LV wall mass/bsa, MM ? 60 ?g/m^2 ?? ---- LV mass/height^2.7, ?32.54 g/m^2.7 ---- MM Ventricular septum ? Value ? Reference ?? Z IVS thickness, ED, ? 0.72 ??cm ?0.68 - 1.27 -1.8 MM Aortic valve ? Value ? Reference ?? Z Aortic annulus ? 1.89 ??cm ?1.76 - 2.47 -1.2 diameter, S Aorta ?Value ? Reference ?? Z Ao root diameter ? 2.41 ??cm ?2.26 - 3.44 -1.5 Ao STJ diameter ?(L) ? 1.69 ??cm ?1.89 - 2.79 -2.8 Ascending aorta ID, ??(L) ? 2.00 ??cm ?2.03 - 3.10 -2.1 A-P, S Aortic root ID, ED, ?2.50 ??cm ? ---- MM Legend: (L) ??and ??(H) ??nadja values outside specified reference range. Interpreted and electronically signed by Conrado Roe M.D. 08/11/2017 09:01 Procedure Note Conrado Roe MD - 08/11/2017 *[facility], [facility]* Pediatric Echocardiogram Report M-mode, complete 2D, complete spectral Doppler, and color Doppler PATIENT: Josephine Alejandre *STUDY DATE/TIME:* Aug 10 2017 12:56PM *HEIGHT:* 157.5cm / (62in) /AGE: 06 2000 / *WEIGHT:* 76.2kg / (167.6lb) 17yr GENDER: F *BSA/BMI:* 1.85m^2 / 30.7kg/m^2 *BP:* 116 / 71 *IMAGING FACILITY:* [facility] *REFERRING PHYSICIAN:* Alysia Valdez *ORDERING PROVIDER:* Alysia Valdez *READING PHYSICIAN:* Conrado Roe M.D. *BUTTONHOLE MARKER:* Yanet Deshpande, [facility], RN REASON FOR EXAM: Hypermobility, R/O Joe-Danlos. STUDY AND PROCEDURE DATA: Pediatric transthoracic echocardiography. Institution: [facility] . Height percentile: 18.9. Weight percentile: 91.6. CONCLUSIONS: 1. Normal echocardiogram. 2. No mitral valve prolapse. 3. No aortic dilation. FINDINGS: ANATOMIC RELATIONSHIPS - Normal atrial situs. Ventricular d-loop. Normally related great vessels. VEINS AND ATRIA Atrial septum - The septum is normal. There is no atrial level shunt. Right atrium - Normal in size right atrium. Systemic veins: - Normal drainage of the right superior vena cava and the inferior vena cava into the right atrium. Left atrium - Normal in size left atrium. Pulmonary veins: - Normal drainage of the right upper, right lower, left upper, and left lower pulmonary veins into the left atrium. A-V CANAL Tricuspid valve - The valve is structurally normal. - Trivial regurgitation. Mitral valve - The valve is structurally normal. VENTRICLES Right ventricle - The cavity size is normal. Systolic function is qualitatively normal. The estimated right ventricular pressure is 20mm Hg plus the right atrial pressure. Left ventricle - The cavity size is normal. Systolic function is qualitatively normal. Ventricular septum - Thickness is normal. There is no ventricular level shunt. CONOTRUNCUS Pulmonary valve - The valve is structurally normal. - Transvalvular velocity is within the normal range. Trivial regurgitation. Aortic valve - The valve is structurally normal. The valve is trileaflet. - Transvalvular velocity is within the normal range. Coronaries - The left main has a normal origin from the left sinus of Valsalva. Left coronary origin confirmed by color Doppler. The right coronary arises normally from the right sinus of Valsalva. Right coronary origin confirmed by color Doppler. GREAT ARTERIES Pulmonary arteries: - The main pulmonary and proximal branch pulmonary arteries are normal. The peak flow velocities are within the normal range. Aorta - Left aortic arch and normal branching pattern is demonstrated. - The ascending aorta, transverse arch, and descending aorta are normal. - The peak flow velocities are within normal range. PERICARDIUM - There is no significant pericardial effusion. MEASUREMENTS: Left ventricle Value Reference Z LV ID, ED, MM 4.83 cm 4.34 - 5.81 -0.7 LV ID, ES, MM 3.07 cm 2.58 - 3.99 -0.6 LV fx shortening, MM 36 % 29 - 43 0.4 LV PW thickness, ED, 0.72 cm 0.67 - 1.16 -1.6 MM LV wall mass, MM (L) 111 g 115 - 269 -2.1 LV wall mass/bsa, MM 60 g/m^2 ---- LV mass/height^2.7, 32.54 g/m^2.7 ---- MM Ventricular septum Value Reference Z IVS thickness, ED, 0.72 cm 0.68 - 1.27 -1.8 MM Aortic valve Value Reference Z Aortic annulus 1.89 cm 1.76 - 2.47 -1.2 diameter, S Aorta Value Reference Z Ao root diameter 2.41 cm 2.26 - 3.44 -1.5 Ao STJ diameter (L) 1.69 cm 1.89 - 2.79 -2.8 Ascending aorta ID, (L) 2.00 cm 2.03 - 3.10 -2.1 A-P, S Aortic root ID, ED, 2.50 cm ---- MM Legend: (L) and (H) nadja values outside specified reference range. Interpreted and electronically signed by Conrado Roe M.D. 08/11/2017 09:01 Alysia Valdez MD Active Scaler Organization Address City/State/ZIP Co de Phone Number INTERFACE SYSTEM Refer to clinic/hospital department documented in this encounter Visit Diagnoses Diagnosis Generalized hypermobility of joints- Primary Other joint derangement, not elsewhere classified, multiple sites Generalized hypermobility of joints Other joint derangement, not elsewhere classified, multiple sites documented in this encounter Care Teams Sheet Metal Assembler And Riveter Relationship Specialty Start Date End Date Laura Reid MD PCP - General Pediatrics 07/02/17 documented as of this encounter
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
--- OUTSIDE RECORDS SUMMARY | 2024-08-30 03:01 | XMS_ITS | Encounter Summary ---
Author Organization [facility] Address [address] 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 No / Unsure 09/09/2022 2:37 PM FREEZER WORKER documented as of this encounter Miscellaneous Notes * Telephone Encounter - Mary Evelyn - 09/22/2022 10:34 AM CST Navigator calling to follow up with Josephine, unable to contact patient, left message asking patientto call back if she needs any Further assistance. No further follow up needed ZER WORKER documented in this encounter Plan of Treatment Not on file documented as of this encounter Goals Goal [...] Ready to change Department associated with goal: [facility] Steps to achieve goal: [...] Ready to change Department associated with goal: [facility] Steps to achieve goal: [...] Diagnoses Not on filedocumented in this encounter Additional Health Concerns Assessment Noted Time PHQ-9 Depression Total Score: 23 05 022 11:00 AM CDT documented as of this encounter Care Teams Oyster Worker Relationship Specialty Start Date End Date Nubia Brown PAC [address] [place] [address] PCP - General Physician Elementary Ell Teacher 08/13/20 03/01/23 documented as of this encounter
--- OUTSIDE RECORDS SUMMARY | 2024-08-30 03:01 | XMS_ITS | Encounter Summary ---
Author Organization [facility] Address [address] 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 No / Unsure 08/06/2022 12:35 PM TEST ENGINEERING INTERN documented as of this encounter Plan of Treatment Not on file documented as of this encounter Goals Goal Patient Goal Type Associated Problems Recent Progress Patient-Stated? Author Behavioral Health Behavioral Health Yes Traci Romero, ISAURA Note: I just need to be able to handle this and talk to someone. will gain insight regarding impact of trauma and gain relief from traumatic stress. Goal Reviewed with: patient Readiness to change: Ready to change Department associated with goal: [facility] Steps to achieve [...] Ready to change Department associated with goal: [facility] Steps to achieve [...] as of this encounter Visit Diagnoses Diagnosis Abdominal pain, unspecified abdominal location documented in this encounter Additional Health Concerns Assessment Noted Time PHQ-9 Depression Total Score: 23 022 11:00 AM CDT documented as of this encounter Care Teams Pharmacy Aide Relationship Specialty Start Date End Date Nubia Brown PAC [address] [place] [address] PCP - General Physician Canal Structure Operator 08/13/20 03/01/23 documented as of this encounter
--- OUTSIDE RECORDS SUMMARY | 2024-08-30 03:01 | XMS_ITS | Encounter Summary ---
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 No / Unsure 03/15/2023 8:16 AM CDT documented as of this encounter Plan of Treatment Not on file documented as of this encounter Goals Goal Patient Goal Type Associated Problems Recent Progress Patient-Stated? Author Behavioral Health Behavioral Health Yes Traci Romero, CALL OR CONTACT CENTRE COACH Note: I just need to be able to handle this and talk to someone. will gain insight regarding impact of trauma and gain relief from traumatic stress. Goal Reviewed with: patient Readiness to change: Ready to change Department associated with goal: [facility] Steps to achieve goal: will share personal trauma story in counseling/psychotherapy sessions. will learn/identify how trauma has impacted personal life, physical health and behavioral health. will identify and practice, at least two, skills/activities/routines, to gain relief from the impact of trauma. Behavioral Health Behavioral Health Traci Howe, CALL OR CONTACT CENTRE COACH Note: Carlene will report a decrease in symptoms of depression to have reduction of depression symptoms. Goal Reviewed with: patient Readiness to change: Ready to change Department associated with goal: [facility] Steps to achieve [...] documented as of this encounter Care Teams Rn Advice Relationship Specialty Start Date End Date Provider, None [place] PCP - General 03/15/23 documented as of this encounter
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
--- OUTSIDE RECORDS SUMMARY | 2024-08-30 03:01 | XMS_ITS | Encounter Summary ---
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 No / Unsure 06/16/2022 2:28 PM CDT documented as of this encounter Plan of Treatment Not on file documented as of this encounter Goals Goal Patient Goal Type Associated Problems Recent Progress Patient-Stated? Author Behavioral Health Behavioral Health Yes Traci Romero, EDGE SETTER Note: I just need to be able to handle this and talk to someone. will gain insight regarding impact of trauma and gain relief from traumatic stress. Goal Reviewed with: patient Readiness to change: Ready to change Department associated with goal: [facility] Steps to achieve goal: will share personal trauma story in counseling/psychotherapy sessions. will learn/identify how trauma has impacted personal life, physical health and behavioral health. will identify and practice, at least two, skills/activities/routines, to gain relief from the impact of trauma. Behavioral Health Behavioral Health Traci Howe, EDGE SETTER Note: Carlene will report a decrease in symptoms of depression to have reduction of depression symptoms. Goal Reviewed with: patient Readiness to change: Ready to change Department associated with goal: [facility] Steps to achieve [...] documented as of this encounter Care Teams Service Delivery Management Consultant Relationship Specialty Start Date End Date Nubia Brown PAC [address] [place] [address] PCP - General Physician Paralegal 08/13/20 03/01/23 documented as of this encounter
--- OUTSIDE RECORDS SUMMARY | 2024-08-30 03:01 | XMS_ITS | Encounter Summary ---
Author Organization [facility] Address [address] 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 No / Unsure 06/24/2022 3:56 PM CDT documented as of this encounter Miscellaneous Notes * Telephone Encounter - Peyton Kay RN - 07/01/2022 10:54 AM CST [facility]MP [place] 06/17/22 2 days - Clonazepam 05/29/22 15 days Medication failed the protocol, provider to review and approve the medication order if appropriate. Requested Prescriptions Pending Prescriptions Disp Refills clonazePAM (KlonoPIN) 0.5 MG Tablet 30 Tablet 0 Sig: Take 1 Tablet by mouth 2 times daily as needed for Anxiety (sleep). Not Delegated - Clonazepam Protocol Failed - 06/30/2022 2:51 PM Failed - This refill cannot be delegated Passed - Visit with relevant provider in past 12 months or upcoming 90 days Recent Visits Date Type Provider Dept 05/08/22 Office Visit Nubia Brown PAC [facility] 03/04/22 Office Visit Nubia Brown PAC [facility] 02/18/22 Office Visit Nubia Brown PAC [facility] 01/02/22 Office Visit Nubia Brown PAC [facility] 12/05/21 Telemedicine Nubia Brown PAC [facility] 07/02/21 Office Visit Nubia Brown PAC [facility] Showing recent visits within past 365 days and meeting all other requirements Future Appointments Date Type Provider Dept 08/07/22 Appointment Nubia Brown PAC [facility] Showing future appointments within next 90 days and meeting all other requirements HYDROcodone-acetaminophen (NORCO) 5-325 MG Tablet 15 Tablet 0 Sig: Take 1 Tablet by mouth every 4 hours as needed for Moderate or more severe pain. Not Delegated - Opioid Combinations Protocol Failed - 06/30/2022 2:51 PM Failed - This refill cannot be delegated Passed - Visit with relevant provider in past 12 months or upcoming 90 days Recent Visits Date Type Provider Dept 05/08/22 Office Visit Nubia Brown, PAC [facility] 03/04/22 Office Visit Nubia Brown, PAC [facility] 02/18/22 Office Visit Nubia Brown, PAC [facility] 01/02/22 Office Visit Nubia Brown, PAC [facility] 12/05/21 Telemedicine Nubia Brown, PAC [facility] 07/02/21 Office Visit Nubia Brown, PAC [facility] Showing recent visits within past 365 days and meeting all other requirements Future Appointments Date Type Provider Dept 08/07/22 Appointment Nubia Brown, PAC [facility] Showing future appointments within next 90 days and meeting all other requirements R COVERINGS INSTALLER documented in this encounter Plan of Treatment [...] Ready to change Department associated with goal: [facility] Steps to achieve [...] Ready to change Department associated with goal: [facility] Steps to achieve [...] as of this encounter Visit Diagnoses Diagnosis Insomnia, unspecified type Anxiety and depression Dysthymic disorder Abdominal pain, unspecified abdominal location documented in this encounter Additional Health Concerns Assessment Noted Time PHQ-9 Depression Total Score: 23 022 11:00 AM CDT documented as of this encounter Care Teams Metal Weigher Relationship Specialty Start Date End Date Nubia Brown PAC [address] [place] [address] PCP - General Physician Marketing Executive 08/13/20 03/01/23 documented as of this encounter
--- OUTSIDE RECORDS SUMMARY | 2024-08-30 03:01 | XMS_ITS | Encounter Summary ---
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 will gain insight regarding impact of trauma and gain relief from traumatic stress. Goal Reviewed with: patient Readiness to change: Ready to change Department associated with goal: [facility] Steps to achieve goal: will share personal trauma story in counseling/psychotherapy sessions. will learn/identify how trauma has impacted personal life, physical health and behavioral health. will identify and practice, at least two, skills/activities/routines, to gain relief from the impact of trauma. Behavioral Health Behavioral Health Traci Howe, PLANNING ASSOCIATE Note: Carlene will report a decrease in symptoms of depression to have reduction of depression symptoms. Goal Reviewed with: patient Readiness to change: Ready to change Department associated with goal: [facility] Steps to [...] documented as of this encounter Care Teams Pump Installer Relationship Specialty Start Date End Date Nubia Brown PAC [address] [place] [address] PCP - General Physician Marine Cargo Specialist 08/13/20 03/01/23 documented as of this encounter
--- OUTSIDE RECORDS SUMMARY | 2024-08-30 03:01 | XMS_ITS | Encounter Summary ---
Author Organization [facility] Address [address] [place] [address] Care Team Providers Care Can Capper Name Role Phone Laura Reid MD Primary Care Provider Unava ilable Encounter Details Date Type Department Care Team (Late st Contact Info) Description 05/17/2024 External Device Data [facility] ABSTRACTION Provider, Abstract [...] on filedocumented in this encounter Care Teams Can Capper Relationship Specialty Start Date End Date Laura Reid MD PCP - General Pediatrics 07/02/17 documented as of this encounter
--- OUTSIDE RECORDS SUMMARY | 2024-08-30 03:01 | XMS_ITS | Encounter Summary ---
Author Organization [facility] Address [address] 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 No / Unsure 10/24/2022 4:00 PM SLOTTER OPERATOR documented as of this encounter Miscellaneous Notes * Telephone Encounter - Hamzah Hernandez RN - 09/22/2022 4:43 PM CST Patient calling. She wants to know lab results. She also wants drug test results. Informed caller of prior note. Informed caller that RN will send a note to the office and call back. Please review and advise Thanks. TER OPERATOR * Telephone Encounter - Leigha Mathew RN - 09/12/2022 10:28 AM SLOTTER OPERATOR Spoke to lab, they can not add this test due to the specimen being drawn 3 days ago. TER OPERATOR * Telephone Encounter - Leigha Mathew RN - 09/12/2022 10:26 AM SLOTTER OPERATOR ----- Message from Nubia Brown, PAC sent at 09/12/2022 8:53 AM SLOTTER OPERATOR ----- Tsh mild suppressed, have lab add free t4 TER OPERATOR documented in this encounter Plan of Treatment Not on file documented as of this encounter Goals Goal Patient Goal Type Associated Problems Recent Progress Patient-Stated? Author Behavioral Health Behavioral Health Yes Traci Romero, UNDERGROUND SUPERVISOR Note: I just need to be able to handle this and talk to someone. will gain insight regarding impact of trauma and gain relief from traumatic stress. Goal Reviewed with: patient Readiness to change: Ready to change Department associated with goal: [facility] Steps to achieve goal: will share personal trauma story in counseling/psychotherapy sessions. will learn/identify how trauma has impacted personal life, physical health and behavioral health. will identify and practice, at least two, skills/activities/routines, to gain relief from the impact of trauma. Behavioral Health Behavioral Health Traci Howe, UNDERGROUND SUPERVISOR Note: Carlene will report a decrease in symptoms of depression to have reduction of depression symptoms. Goal Reviewed with: patient Readiness to change: Ready to change Department associated with goal: [facility] Steps to achieve [...] documented as of this encounter Care Teams Stamping Die Try Out Worker Relationship Specialty Start Date End Date Nubia Brown PAC [address] [place] [address] PCP - General Physician Deaf Interpreter 08/13/20 03/01/23 documented as of this encounter
--- OUTSIDE RECORDS SUMMARY | 2024-08-30 03:01 | XMS_ITS | Encounter Summary ---
Author Organization [employer] Care Team Providers Care Hospital Account Liaison Name Role Phone Nubia Brown 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 No / Unsure 08/06/2022 12:35 PM TRUCK ENGINE ASSEMBLER documented as of this encounter Plan of Treatment Not on file documented as of this encounter Goals Goal Patient Goal Type Associated Problems Recent Progress Patient-Stated? Author Behavioral Health Behavioral Health Yes Traci Romero, ART PROFESSOR Note: I just need to be able to handle this and talk to someone. will gain insight regarding impact of trauma and gain relief from traumatic stress. Goal Reviewed with: patient Readiness to change: Ready to change Department associated with goal: [facility] Steps to achieve goal: will share personal trauma story in counseling/psychotherapy sessions. will learn/identify how trauma has impacted personal life, physical health and behavioral health. will identify and practice, at least two, skills/activities/routines, to gain relief from the impact of trauma. Behavioral Health Behavioral Health Traci Howe, ART PROFESSOR Note: Carlene will report a decrease in symptoms of depression to have reduction of depression symptoms. Goal Reviewed with: patient Readiness to change: Ready to change Department associated with goal: [facility] Steps to achieve [...] documented as of this encounter Care Teams Hospital Account Liaison Relationship Specialty Start Date End Date Nubia Brown PAC [address] [place] [address] PCP - General Physician Data Warehouse Architect 08/13/20 03/01/23 documented as of this encounter
--- OUTSIDE RECORDS SUMMARY | 2024-08-30 03:01 | XMS_ITS | Encounter Summary ---
Author Organization [facility] Address [address] 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 No / Unsure 10/24/2022 4:00 PM SHOE REPAIRER APPRENTICE documented as of this encounter Last Filed Vital Signs Vital Sign Reading Time Taken Comments Blood Pressure 138/79 10/24/2022 4:00 PM SHOE REPAIRER APPRENTICE Pulse 82 10/24/2022 4:00 PM SHOE REPAIRER APPRENTICE Temperature 36.3 ??C (97.4 ??F) 10/24/2022 4:00 PM CS T Respiratory Rate 16 10/24/2022 4:00 PM SHOE REPAIRER APPRENTICE Oxygen Saturation 100% 10/24/2022 4:00 PM SHOE REPAIRER APPRENTICE Inhaled Oxygen Concentration - - Weight 86.2 kg (190 lb) 10/24/2022 4:00 PM SHOE REPAIRER APPRENTICE Height 157.5 cm (5' 2 ) 10/24/2022 4:00 PM SHOE REPAIRER APPRENTICE Body Mass Index 34.75 10/24/2022 4:00 PM SHOE REPAIRER APPRENTICE documented in this encounter Medications at Time of Discharge clonazePAM (KlonoPIN) 0.5 MG TabletIndications: Insomnia, unspecified type,Anxiety and depression Take 1 Tablet by mouth 2 times daily as needed for Anxiety (sleep). 30 Tablet 09/23/2022 nitrofurantoin, macrocrystal-monoh ydrate, (MACROBID) 100 MG Capsule Take 100 mg by mouth 2 times daily. omeprazole (PriLOSEC) 40 MG CAPSULE DELAYED RELEASE Take 1 Capsule by mouth daily. 90 Capsule 08/07/2022 prochlorperazine (COMPAZINE) 5 MG TabletIndications: Nausea and vomiting, unspecified vomiting type Take 1 Tablet by mouth every 6 hours as needed for Nausea - 1st line. 30 Tablet 10/20/2022 Simethicone (ANTI GAS PO) Take by mouth 4 times daily. sucralfate (CARAFATE) 1 GM Tablet Take 1 Tablet by mouth 4 times daily. Take 1 hour prior to meals 3 times daily and at bedtime 120 Tablet 10/15/2022 venlafaxine (EFFEXOR-XR) 150 MG CAPSULE SR 24 HRIndications:PTSD (post-traumatic stress disorder) Take 1 Capsule by mouth daily. 90 Capsule 10/20/2022 documented as of this encounter ED Notes * Kalen Faith RN - 10/24/2022 4:02 PM CST Pt to triage with c/o abdominal pain, nausea, and vomiting. States that vomiting has been an ongoing issue for over a year, but that the diarrhea started about 3 days ago and has been non-stop. REPAIRER APPRENTICE documented in this encounter Plan of Treatment [...] Ready to change Department associated with goal: [facility] Steps to achieve goal: will share personal trauma story in counseling/psychotherapy sessions. will learn/identify how trauma has impacted personal life, physical health and behavioral health. will identify and practice, at least two, skills/activities/routines, to gain relief from the impact of trauma. Behavioral Health Behavioral Health No Traci Romero, ARTS MANAGER Note: Carlene will report a decrease in symptoms of depression to have reduction of depression symptoms. Goal Reviewed with: patient Readiness to change: Ready to change Department associated with goal: [facility] Steps to achieve [...] Noted Time PHQ-9 Depression Total Score: 23 01/02/ 022 11:00 AM CDT documented as of this encounter Care Teams Social Media Campaign Manager Relationship Specialty Start Date End Date Nubia Brown PAC [address] [place] [address] PCP - General Physician Mortgage Or Loan Underwriter 08/13/20 03/01/23 documented as of this encounter
--- OUTSIDE RECORDS SUMMARY | 2024-08-30 03:01 | XMS_ITS | Encounter Summary ---
Author Organization [facility] Address [address] [place] [address] Care Team Providers Care Pearl Glue Drier Name Role Phone Laura Reid MD Primary Care Provider Unava ilable Reason for Referral * Echocardiography (Routine) - Closed Specialty Diagnoses / Procedures Referred By Kaleigh belle Referred To Contact Diagnoses Encounter for screening for malformation Family history of congenital heart defect Procedures ECHO 2D + COLOR FLOW VELOCITY WV DOP ECHOCARD COLOR FLOW VELOCITY MAPPING CHG ECHO CARDIOVASC W/WO M-MODE RECORDING CHG DOPPLER ECHO SPECTRAL DISPLAY COMPLETE Chata Wiley MD [address] [place] [phone] [facility] Machelle Ingram [address] [place] [phone] Referral ID Status Reason Start Date Expiration Date Visits Re quested Visits Authorized [id number] Closed 03/31/2024 05/01/2025 1 1 Reason for Visit * Echocardiography (Routine) - Closed Specialty Diagnoses / Procedures Referred By Contac t Referred To Contact Diagnoses Encounter for screening for malformation Family history of congenital heart defect Procedures ECHO 2D + COLOR FLOW VELOCITY W[place] DOP ECHOCARD COLOR FLOW VELOCITY MAPPING CHG ECHO CARDIOVASC W/WO M-MODE RECORDING CHG DOPPLER ECHO SPECTRAL DISPLAY COMPLETE Chata Wiley MD [address] [place] [phone] [facility] [place] Machelle Ingram [address] [place] [address] Referral ID Status Reason Start Date Expiration Date Visits Re quested Visits Authorized [id number] Closed 03/31/2024 05/01/2025 1 1 Encounter Details Date Type Department Care Team (Late st Contact Info) Description 05/30/2024 12:45 PM CDT - 05/30/2024 11:59 PM CDT Hospital Encounter [facility] Maternal and [facility] [address] Ingram [address] [place] [address] Chata Wiley MD [address] MACHELLE INGRAM [facility] [address] [place] [address] Discharge Disposition: Home or Self [...] Procedure Name Priority Date/Time Associated Diagnosis Comments ECHO 2D + COLOR FLOW VELOCITY Routine 05/30/2024 2:25 PM CDT Encounter for screening for malformation Family history of congenital heart defect documented in this encounter Results * ECHO 2D + COLOR FLOW VELOCITY (05/30/2024 2:25 PM CDT) Narrative 05/30/2024 2:25 PM CDT Order information only. ??Exam was auto-finalized. ?? Chata Wiley MD ORDERABLES documented in this encounter Visit Diagnoses Diagnosis Encounter for screening for malformation Family history of congenital heart defect Family history of congenital anomalies documented in this encounter Care Teams Pearl Glue Drier Relationship Specialty Start Date End Date Laura Reid MD PCP - General Pediatrics 07/02/17 documented as of this encounter
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
--- OUTSIDE RECORDS SUMMARY | 2024-08-30 03:01 | XMS_ITS | Encounter Summary ---
Author Organization [facility] Address [address] 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 No / Unsure 08/06/2022 12:35 PM FOREST FIRE CONTROL OFFICER documented as of this encounter Miscellaneous Notes * Telephone Encounter - Evelyn Hernandez - 08/12/2022 12:49 PM CST Images from the original note were not included. Behavioral Health Navigation Intake Patient Name: Josephine Alejandre Date of Service: 08/12/2022 What is the reason for referral? Counseling What presenting concerns does the patient report? Depression, Anxiety and Post Traumatic Stress Disorder Does the patient report thoughts that they would be better off or thoughts of hurting themselves/others in some way? Suicidal Ideation: There is recent history of suicidal ideation. Thoughts, no intent, recently talked with PCP about it . Homicidal Ideation: There is no history of homicidal ideation.. Does the patient report being on any mental health medications? If so, please define: Yes, See chart Does the patient report any current or past mental health services? If so, please define: (hospitalization, counseling, psychiatry, etc.): Yes, past counseling Insurance Status: IDPA/Unknown/None/Private (specify): [employer] Does the patient report any barriers to treatment? (transportation, schedule conflicts, financial, etc) No: Is the patient signed up for MyChart? Yes Plans/Recommendations: Navigator provided information on [facility] IOP program, along with contact number. Brief Narrative: Behavioral Health Navigator contacted Josephine for a telephone intake at 1PM to discuss behavioral health resources. Patient was referred to [facility] by PCP. Josephine is presenting with Depression, Anxiety and Post Traumatic Stress Disorder. Charles was given resources for IOP. Patient is open follow up. Any insurance/benefit information provided to patient is not a guarantee of coverage. Patient is advised to contact their insurance company to verify coverage for behavioral health services. ST FIRE CONTROL OFFICER documented in this encounter Plan of Treatment Not on file documented as of this encounter Goals Goal Patient Goal Type Associated Problems Recent Progress Patient-Stated? Author Behavioral Health Behavioral Health Yes Traci Romero, PATIENT ACCOUNTS MANAGER Note: I just need to be able to handle this and talk to someone. will gain insight regarding impact of trauma and gain relief from traumatic stress. Goal Reviewed with: patient Readiness to change: Ready to change Department associated with goal: [facility] Steps to achieve goal: will share personal trauma story in counseling/psychotherapy sessions. will learn/identify how trauma has impacted personal life, physical health and behavioral health. will identify and practice, at least two, skills/activities/routines, to gain relief from the impact of trauma. Behavioral Health Behavioral Health Traci Howe, PATIENT ACCOUNTS MANAGER Note: Carlene will report a decrease in symptoms of depression to have reduction of depression symptoms. Goal Reviewed with: patient Readiness to change: Ready to change Department associated with goal: [facility] Steps [...] documented as of this encounter Care Teams Maitre D Relationship Specialty Start Date End Date Nubia Brown PAC [address] [place] [address] PCP - General Physician New Car Get Ready Mechanic 08/13/20 03/01/23 documented as of this encounter
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
--- OUTSIDE RECORDS SUMMARY | 2024-08-30 03:01 | XMS_ITS | Encounter Summary ---
Author Organization [facility] Address [address] 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 No / Unsure 08/06/2022 12:35 PM SALESPERSON NEW CARS documented as of this encounter Miscellaneous Notes * Telephone Encounter - Nubia Brown PAC - 08/11/2022 5:11 PM SALESPERSON NEW CARS Do I just need to send in effexor 75 mg daily for 1 week SPERSON NEW CARS * Telephone Encounter - Anitra Long - 08/11/2022 2:46 PM CST Insurance requiring a prior authorization on Venlafaxine ER 75 mg, ok to proceed? SPERSON NEW CARS documented in this encounter Plan of Treatment [...] Ready to change Department associated with goal: [facility] Steps to achieve [...] Ready to change Department associated with goal: [facility] Steps to achieve [...] documented as of this encounter Care Teams Software Asset Management Analyst Relationship Specialty Start Date End Date Nubia Brown PAC [address] [place] [address] PCP - General Physician Reconciliation Manager 08/13/20 03/01/23 documented as of this encounter
--- OUTSIDE RECORDS SUMMARY | 2024-08-30 03:01 | XMS_ITS | Encounter Summary ---
Author Organization [facility] Address [address] 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 No / Unsure 09/24/2022 1:13 PM WAREHOUSE RECEIVER documented as of this encounter Miscellaneous Notes * Telephone Encounter - Peyton Kay RN - 10/02/2022 9:59 AM CST PDMP 09/23/22 - 7 days Medication failed the protocol, provider to review and approve the medication order if appropriate. Requested Prescriptions Pending Prescriptions Disp Refills HYDROcodone-acetaminophen (NORCO) 7.5-325 MG Tablet 30 Tablet 0 Sig: Take 1 Tablet by mouth every 6 hours as needed for Severe pain. Not Delegated - Opioid Combinations Protocol Failed - 10/01/2022 5:37 PM Failed - This refill cannot be delegated Passed - Visit with relevant provider in past 12 months or upcoming 90 days Recent Visits Date Type Provider Dept 09/09/22 Office Visit Nubia Brown, PAC [facility] 08/07/22 Office Visit Nubia Brown, PAC [facility] 05/08/22 Office Visit Nubia Brown, PAC [facility] 03/04/22 Office Visit Nubia Brown, PAC [facility] 02/18/22 Office Visit Nubia Brown, PAC [facility] 01/02/22 Office Visit Nubia Brown, PAC [facility] 12/05/21 Telemedicine Nubia Brown, PAC [facility] Showing recent visits within past 365 days and meeting all other requirements Future Appointments Date Type Provider Dept 10/07/22 Appointment Nubia Brown, PAC [facility] Showing future appointments within next 90 days and meeting all other requirements HOUSE RECEIVER documented in this encounter Plan of Treatment Not on file documented as of this encounter Goals Goal Patient Goal Type Associated Problems Recent Progress Patient-Stated? Author Behavioral Health Behavioral Health Yes Trcai Romero, AUTOMATIC PRINT DEVELOPER Note: I just need to be able to handle this and talk to someone. will gain insight regarding impact of trauma and gain relief from traumatic stress. Goal Reviewed with: patient Readiness to change: Ready to change Department associated with goal: [facility] Steps to achieve goal: will share personal trauma story in counseling/psychotherapy sessions. will learn/identify how trauma has impacted personal life, physical health and behavioral health. will identify and practice, at least two, skills/activities/routines, to gain relief from the impact of trauma. Behavioral Health Behavioral Health No Traci Romero, ISAURA Note: Carlene will report a decrease in symptoms of depression to have reduction of depression symptoms. Goal Reviewed with: patient Readiness to change: Ready to change Department associated with goal: [facility] Steps to [...] documented as of this encounter Care Teams Curatorial Assistant Relationship Specialty Start Date End Date Nubia Brown PAC [address] [place] [address] PCP - General Physician Supervisor Pipe Finishing 08/13/20 03/01/23 documented as of this encounter
--- OUTSIDE RECORDS SUMMARY | 2024-08-30 03:01 | XMS_ITS | Clinical Summary ---
Author Organization [facility] Address [address] [place] [address] Phone Care Team Providers Care Scalp Treatment Operator Name Role Phone Provider, None Primary Care Provider Unavailabl e Allergies Active Allergy Reactions Criticality Noted Date Comments Topiramate Anxiety,Hallucinations High 01/03/2016 Psychological problems/ Medications Simethicone (ANTI GAS PO) Take by mouth 4 times daily. Active omeprazole (PriLOSEC) 40 MG CAPSULE DELAYED RELEASE Take 1 Capsule by mouth daily. 90 Capsule 08/07/2022 Active clonazePAM (KlonoPIN) 0.5 MG TabletIndication s:Insomnia, unspecified type,Anxiety and depression Take 1 Tablet by mouth 2 times daily as needed for Anxiety (sleep). 30 Tablet 09/23/2022 Active sucralfate (CARAFATE) 1 GM Tablet Take 1 Tablet by mouth 4 times daily. Take 1 hour prior to meals 3 times daily and at bedtime 120 Tablet 10/15/2022 Active venlafaxine (EFFEXOR-XR) 150 MG CAPSULE SR 24 HRIndications:PT SD (post-traumatic stress disorder) Take 1 Capsule by mouth daily. 90 Capsule 10/20/2022 Active prochlorperazine (COMPAZINE) 5 MG TabletIndication s:Nausea and vomiting, unspecified vomiting type Take 1 Tablet by mouth every 6 hours as needed for Nausea - 1st line. 30 Tablet 10/20/2022 Active nitrofurantoin, macrocrystal-mon ohydrate, (MACROBID) 100 MG Capsule Take 100 mg by mouth 2 times daily. Active naproxen (NAPROSYN) 500 MG Tablet Take 1 Tablet by mouth 2 times daily as needed for Mild or more severe pain. 20 Tablet 03/15/2023 Active Active Problems No known active problems Immunizations Immunization Administration Dates Next Due Covid-19, Mrna, Lnp-s, Pf, 30 Mcg/0.3 Ml Dose (P fizer) 11/27/2020 Influenza Vaccine, Quadrivalent, PF 05/08/2022,1 10/14/2019 TDAP Vaccine 02/11/2021 Family History Medical History Relation Name Comments Congenital Heart Disease Brother Pas sed 4 Heart Attack Father Bipolar Disorder Mother Depression Mother Cancer Paternal Aunt x4 No Known Problems Sister 1 No Known Problems Sister 2 No Known Problems Sister 3 No Known Problems Sister 4 Relation Name Status Comments Brother Father Mother Alive Paternal Aunt x4 Alive Sister 1 Alive Sister 2 Alive Sister 3 Alive Sister 4 Alive Social History Tobacco Use Types Packs/Day Years Used Date Smoking Tobacco: Every Day Cigarettes 0.5 3 Smokeless Tobacco: Never Tobacco Cessation:Ready to Q uit: Not Asked; Counseling Given: Not Answered Alcohol Use Standard Drinks/Week Comments Yes 0 (1 standard drink = 0.6 oz pur e alcohol) [employer] Utilities Answer Date Recorded In the past 12 months has e [employer], gas, oil, or water [employer] threatened to shut off services in your home? Yes 02/16/2024 Social Connection and Isolation Panel [NHANES] A nswer Date Recorded In a typical week, how many times do you talk on the phone with family, friends, or neighbors? Once a week 02/16/2024 How often do you get together with friends or re latives? Once a week 02/16/2024 How often do you attend congregational or oriental orthodox serv ices? Never 02/16/2024 Do you belong to any clubs o r organizations such as congregational groups, unions, fraternal or athletic groups, or school groups? No 02/16/2024 How often do you attend meet ings of the clubs or organizations you belong to? Never 02/16/2024 Are you , , di vorced, , never , or living with a partner? Never 02/16/2024 AUDIT-C Answer Date Recorded Q1: How often do you have a drink containing alcohol? Never 02/16/2024 Q2: How many drinks containi ng alcohol do you have on a typical day when you are drinking? Patient does not drink Q3: How often do you have si x or more drinks on one occasion? Never 02/16/2024 Overall Financial Resource Strain (CARDIA) Answe r Date Recorded How hard is it for you to pa y for the very basics like food, housing, medical care, and heating? Very hard 02/16/2024 PHQ-2 Answer Date Recorded Total Score - Questions 1-9 23 12/22 [facility] [place] [facility] Occupat ional Health - Occupational Stress Questionnaire Answer Date Recorded Do you feel stress - tense, restless, nervous, or anxious, or unable to sleep at night because your mind is troubled all the time - these days? Very much 02/16/2024 Exercise Vital Sign Answer Date Recorde d On average, how many days pe r week do you engage in moderate to strenuous exercise (like a brisk walk)? 2 days 02/16/2024 On average, how many minutes do you engage in exercise at this level? 10 min 02/16/2024 Hunger Vital Sign Answer Date Recorded Within the past 12 months, y ou worried that your food would run out before you got the money to buy more. Often true 02/16/20 24 Within the past 12 months, t he food you bought just didn't last and you didn't have money to get more. Often true 02/16/2024 PRAPARE - Transportation Answer Date Re corded In the past 12 months, has l ack of transportation kept you from medical appointments or from getting medications? No 01/23 In the past 12 months, has l ack of transportation kept you from meetings, work, or from getting things needed for daily living? No 02/16/2024 Housing Stability Vital Sign Answer Amador e Recorded In the last 12 months, was t here a time when you were not able to pay the mortgage or rent on time? Yes 02/16/2024 In the past 12 months, how m any times have you moved where you were living? 6 02/16/2024 At any time in the past 12 m [facility], were you homeless or living in a correction (including now)? 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 Not on file Not on file Not on f ile Last Filed Vital Signs Vital Sign Reading Time Taken Comments Blood Pressure 106/63 03/15/2023 11:00 AM CDT Pulse 90 03/15/2023 11:00 AM CDT Temperature 36.8 ??C (98.2 ??F) 03/15/2023 8:15 AM CD T Respiratory Rate 16 03/15/2023 8:15 AM CDT Oxygen Saturation 100% 03/15/2023 11:00 AM CDT Inhaled Oxygen Concentration - - Weight 79 kg (174 lb 2.6 oz) 03/15/2023 8:15 AM CDT Height 157.5 cm (5' 2 ) 03/15/2023 8:15 AM CDT Body Mass Index 31.85 03/15/2023 8:15 AM CDT Plan of Treatment Health Maintenance Due Date Last Done Comments Hepatitis C Virus (HCV) Screening 1998 Human Papillomavirus (HPV) Immunization (1 - 3-dose series) 2013 Hepatitis B Immunization (1 of 3 - 19+ 3-dose series) 2017 Pneumococcal Immunization Combined (1 of 2 - PCV) 2017 Pap Smear 2019 Influenza Immunization (#1) 2024 091 12/2021, 08/13/2020 SARS-COV-2 Immunization (2 - 2023- season) 2024 11/27/2020 Td Immunization Every 10 Yea rs (Adults With 1 Tdap) 02/11/2031 02/11/2021 Respiratory Syncytial Virus (RSV) Immunization (Adult) (1 - 1-dose 75+ series) 2073 DTaP/Tdap/Td Immunization Discontinued 02/11/2021 Meningococcal Immunization (ACWY) Aged Out No longer eligible based on patient's age to complete this topic Rotavirus Immunization Aged Out No lo nger eligible based on patient's age to complete this topic Goals Goal Patient Goal Type Associated Problems Recent Progress Patient-Stated? Author Behavioral Health Behavioral Health Yes Traci Romero LCSW Note: I just need to be able to handle this and talk to someone. will gain insight regarding impact of trauma and gain relief from traumatic stress. Goal Reviewed with: patient Readiness to change: Ready to change Department associated with goal: [facility] Steps [...] Ready to change Department associated with goal: [facility] Steps to achieve goal: to attend, at least twice monthly, counseling sessions. to identify, verbalize and process at least three contributing factors/triggers to anxiety and depression. T o identify at least two lifestyle changes/habits. to put into action, at least one lifestyle change/habit, for one month or longer, to reduce and or cope with depression. Interventions Community Resource Recommendations Community Resource Services Recommended Domains Addressed Status Status Reason/Outcome Date/Time [facility] Government Benefits, Half-Way Housing, Public Housing, Residential Housing Financial Resource Strain, Housing Stability Recommended 08/29/2024 1:01 PM CALENDER LET OFF HELPER [employer] Emergency Food, Food Pantry Food Insecurity Recommended 08/29/2024 1:01 PM CALENDER LET OFF HELPER Darek Financial Resource Needs Financial Resource Strain, Utilities Recommended 08/29/2024 1:01 PM CALENDER LET OFF HELPER [facility] Financial Resource Needs Financial Resource Strain, Utilities Recommended 08/29/2024 1:01 PM CALENDER LET OFF HELPER [facility] Help Find Housing, General Partner Housing, Residential Housing Housing Stability Recommended 08/29/2024 1:01 PM CALENDER LET OFF HELPER [facility] Financial Resource Needs, Housing Insecurity Needs Financial Resource Strain, Utilities Recommended 08/29/2024 1:01 PM CALENDER LET OFF HELPER [facility] Financial Resource Needs Financial Resource Strain, Utilities Recommended 08/29/2024 1:01 PM CALENDER LET OFF HELPER from Last 12 Months Insurance MEDICAID [facility] Care Teams Scalp Treatment Operator Relationship Specialty Start Date End Date Provider, None [place] PCP - General 03/15/23
--- OUTSIDE RECORDS SUMMARY | 2024-08-30 03:01 | XMS_ITS | Encounter Summary ---
Author Organization [facility] Address [address] [place] [address] Care Team Providers Care Technical Specialist [employer] Name Role Phone Laura Reid MD Primary Care Provider Unava ilable Encounter Details Date Type Department Care Team (Late st Contact Info) Description 04/26/2024 External Device Data [facility] ABSTRACTION Provider, Abstract [...] on filedocumented in this encounter Care Teams Technical Specialist Cytogenetics Relationship Specialty Start Date End Date Laura Reid MD PCP - General Pediatrics 07/02/17 documented as of this encounter
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
--- OUTSIDE RECORDS SUMMARY | 2024-08-30 03:01 | XMS_ITS | Encounter Summary ---
Author Organization [facility] Address [address] [place] [address] Phone Care Team Providers Care Environmental Attorney Name Role Phone Nubia Brown PAC Primary Care Provider + Reason for Referral * Radiology Services (Routine) - Closed Specialty Diagnoses / Procedures Referred By Kaleigh t Referred To Contact Radiology Procedures GI IMAGING - COLONOSCOPY Heide Herrera MD [address] [place] [address] Phone: tel: fax: Referral ID Status Reason Start Date Expiration Date Visits Re quested Visits Authorized [id number] Closed 06/25/2022 1 1 Reason for Visit * Auth/Cert Specialty Diagnoses / Procedures Referred By Kaleigh t Referred To Contact Diagnoses BLACK TARRY STOOLS Procedures COLONOSCOPY Heide Herrera MD [address] [place] [address] Phone: tel: fax: Referral ID Status Reason Start Date Expiration Date Visits Re quested Visits Authorized [id number] 1 1 Encounter Details Date Type Department Care Team (Latest Contact Info) Description 06/25/2022 6:39 AM CDT - 06/25/2022 9:15 AM CDT Hospital Encounter [facility] GI Lab Preop/Pacu II [address] [place] [address] Heide Herrera MD [address] [place] [address] Discharge Disposition: Discharged to home or Selfcare [...] 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 No / Unsure 06/24/2022 3:56 PM CDT documented as of this encounter Last Filed Vital Signs Vital Sign Reading Time Taken Comments Blood Pressure 128/84 06/25/2022 8:58 AM CDT Pulse 69 06/25/2022 8:58 AM CDT Temperature 36 ??C (96.8 ??F) 06/25/2022 8:58 AM CDT Respiratory Rate 18 06/25/2022 8:58 AM CDT Oxygen Saturation 100% 06/25/2022 8:58 AM CDT Inhaled Oxygen Concentration - - [...] FOR BIOPSY RESULTS IN 1 WEEK AT [phone], WORK, OPERATE MACHINERY OR USE POWER TOOLS UNTIL DAY AFTER PROCEDURE. NO ALCOHOL BEVERAGES TODAY FOLLOWING DAY: RETURN TO FULL ACTIVITY, INCLUDING WORK, UNLESS INSTRUCTED OTHERWISE. Call doctor's office ([phone]) or go to Emergency room for: Difficulty Breathing, Headache Or Visual Disturbances Persistent Dizziness Or Light-Headedness Persistent Nausea and Vomiting Temperature greater then 100.0 Significant abdominal pain, chest pain, or bleeding. Here at [facility] we strive to provide excellent care to [...] envelope is provided. Thank you for choosing [facility]. documented in this encounter Medications [...] past surgical history that includes Appendectomy (09/2019); [place] Tooth Extraction; Stomach Surgery (10/27/2019); Kidney Removal [...] No, no needs anticipated 06/25/2022641 by Elva Bass RN Outcome: Ongoing (see interventions/notes) Goal: Absence of Hospital-Acquired Illness or Injury Outcome: Ongoing (see interventions/notes) Goal: Optimal Comfort and Wellbeing Outcome: Ongoing (see interventions/notes) Goal: Readiness for Transition of Care Outcome: Ongoing (see interventions/notes) * Interdisciplinary - Mary Kay Prince RN - 06/16/2022 2:42 PM CDT [facility] GI TEACHING Patient Name: Josephine Alejandre : 2000 CSN#: [id number] Person Educated Patient Ready to Learn Yes [...] be allowed to accompany you to the [facility]. No children under the age of 16 will be allowed in the [facility] unless they are the patient. If the [...] to Teaching: Verbalizes Understanding Patient assessed for speech and language specialist during the preop interview and appropriate interventions [...] Ready to change Department associated with goal: [facility] Steps to [...] Ready to change Department associated with goal: [facility] Steps to [...] 06/25/2022 08:17 AM ? Ordering Location: ? [facility] ? Received: ?06/25/2022 08:48 AM ? [facility] Gi ? Lab Main ? Pathologist: ? Mila St MD ? Specimen: ?Colon, RANDOM COLON BIOPSIES ? 06/26/2022 11:16 AM CDT [facility] FINAL DIAGNOSIS RANDOM COLON BIOPSY: - BENIGN COLONIC MUCOSA WITH NO PATHOLOGIC DIAGNOSIS; NEGATIVE FOR ACTIVE COLITIS, FEATURES OF CHRONIC MUCOSAL INJURY, FEATURES OF MICROSCOPIC COLITIS, OR DYSPLASIA. 06/26/2022 11:16 AM CDT [facility] Clinical Information Change in bowel habits; colonoscopy: normal colon mucosa 06/26/2022 11:16 AM CDT [facility] Pre-Operative Diagnosis BLACK TARRY STOOLS 06/26/2022 11:16 AM CDT [facility] Gross Description A. RANDOM COLON BIOPSIES [...] cassette A1. MH/sb 06/26/2022 11:16 AM CDT [facility] Microscopic Description Microscopic examination was performed which supports the final diagnosis. All control tissues stained appropriately. 06/26/2022 11:16 AM CDT [facility] Tissue COLON STRUCTURE / Unknown 06/25/2022 8:17 AM CDT 06/25/2022 8:48 AM CDT us Heide Herrera MD PATHOLOGY/CYTOLOGY ORDERABLES F inal Result [facility] [address] [place] [address] * POCT Urine HCG () (06/25/2022 7:05 AM CDT) POC URINE Negative POC URINE CONTROL [facility] [place] Urine 06/25/2022 7:05 AM CDT us [...] documented as of this encounter Care Teams Environmental Attorney Relationship Specialty Start Date End Date Nubia Brown PAC [address] [place] [address] PCP - General Physician News Videographer 08/13/20 03/01/23 documented as of this encounter
--- OUTSIDE RECORDS SUMMARY | 2024-08-30 03:01 | XMS_ITS | Encounter Summary ---
Author Organization [facility] Address [address] 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 No other information shared. * Telephone Encounter - Renuka Blancas - 01/30/2023 12:28 PM CDT Evie, patient's employer called re: note from 01-30-2023. Awaiting response from compliance. Please contact her at [phone] (relationship to patient employer)/ documented in this encounter Plan of Treatment [...] Ready to change Department associated with goal: [facility] Steps to achieve goal: [...] Ready to change Department associated with goal: [facility] Steps to achieve goal: [...] documented as of this encounter Care Teams [id number] Armor Crewman Relationship Specialty Start Date End Date Nubia Brown PAC [address] [place] [address] PCP - General Physician Farm Management Teacher 08/13/20 03/01/23 documented as of this encounter
--- OUTSIDE RECORDS SUMMARY | 2024-08-30 03:01 | XMS_ITS | Encounter Summary ---
Author Organization [facility] Address [address] 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 Requested Prescriptions Pending Prescriptions Disp Refills clonazePAM (KlonoPIN) 0.5 MG Tablet 30 Tablet 0 Sig: Take 1 Tablet by mouth 2 times daily as needed for Anxiety (sleep). Not Delegated - Clonazepam Protocol Failed - 07/27/2022 4:38 AM Failed - This refill cannot be delegated Passed - Visit with relevant provider in past 12 months or upcoming 90 days Recent Visits Date Type Provider Dept 05/08/22 Office Visit Nubia Brown PAC [facility] 03/04/22 Office Visit Nubia Brown PAC [facility] 02/18/22 Office Visit Nubia Brown PAC [facility] 01/02/22 Office Visit Nubia Brown PAC [facility] 12/05/21 Telemedicine Nubia Brown PAC [facility] Showing recent visits within past 365 days and meeting all other requirements Future Appointments Date Type Provider Dept 08/07/22 Appointment Nubia Brown PAC [facility] Showing future appointments within next 90 days and meeting all other requirements HYDROcodone-acetaminophen (NORCO) 5-325 MG Tablet 15 Tablet 0 Sig: Take 1 Tablet by mouth every 4 hours as needed for Moderate or more severe pain. Not Delegated - Opioid Combinations Protocol Failed - 07/27/2022 4:38 AM Failed - This refill cannot be delegated Passed - Visit with relevant provider in past 12 months or upcoming 90 days Recent Visits Date Type Provider Dept 05/08/22 Office Visit Nubia Brown PAC [facility] 03/04/22 Office Visit Nubia Brown PAC [facility] 02/18/22 Office Visit Nubia Brown, LISA [facility] 01/02/22 Office Visit Nubia Brown, PAC [facility] 12/05/21 Telemedicine Nubia Brown, PAC [facility] Showing recent visits within past 365 days and meeting all other requirements Future Appointments Date Type Provider Dept 08/07/22 Appointment Nubia BrownLISA [facility] Showing future appointments within next 90 days and meeting all other requirements RTMENT ADMINISTRATOR documented in this encounter Plan of Treatment [...] Ready to change Department associated with goal: [facility] Steps to achieve [...] Ready to change Department associated with goal: [facility] Steps to achieve [...] documented as of this encounter Care Teams Personal Banker Relationship Specialty Start Date End Date Nubia Brown PAC [address] [place] [address] PCP - General Physician Building Code Administrator 08/13/20 03/01/23 documented as of this encounter
--- OUTSIDE RECORDS SUMMARY | 2024-08-30 03:01 | XMS_ITS | Encounter Summary ---
Author Organization [facility] Address [address] 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 No / Unsure 09/24/2022 1:13 PM [employer] documented as of this encounter Miscellaneous Notes * Telephone Encounter - Peyton Kay RN - 10/10/2022 4:20 PM CST PDMP 10/03/22 - 7 days Medication failed the protocol, provider to review and approve the medication order if appropriate. Requested Prescriptions Pending Prescriptions Disp Refills HYDROcodone-acetaminophen (NORCO) 7.5-325 MG Tablet 30 Tablet 0 Sig: Take 1 Tablet by mouth every 6 hours as needed for Severe pain. Not Delegated - Opioid Combinations Protocol Failed - 10/10/2022 4:11 PM Failed - This refill cannot be delegated Passed - Visit with relevant provider in past 12 months or upcoming 90 days Recent Visits Date Type Provider Dept 09/09/22 Office Visit Nubia Brown, PAC [facility] 08/07/22 Office Visit Nubia Brown, PAC [facility] 05/08/22 Office Visit Nubia Brown, PAC [facility] 03/04/22 Office Visit Nubia Brown, PAC [facility] 02/18/22 Office Visit Nubia Brown, PAC [facility] 01/02/22 Office Visit Nubia Brown, PAC [facility] 12/05/21 Telemedicine Nubia Brown, PAC [facility] Showing recent visits within past 365 days and meeting all other requirements Future Appointments Date Type Provider Dept 10/17/22 Appointment Nubia Brown, PAC [facility] Showing future appointments within next 90 days and meeting all other requirements [employer] documented in this encounter Plan of Treatment Not on file documented as of this encounter Goals Goal Patient Goal Type Associated Problems Recent Progress Patient-Stated? Author Behavioral Health Behavioral Health Yes Traci Romero, NURSE LEADER Note: I just need to be able [...] documented as of this encounter Care Teams Stump Blower Relationship Specialty Start Date End Date Nubia Brown PAC [address] [place] [address] PCP - General Physician Carpet Or Rug Layer Helper 08/13/20 03/01/23 documented as of this encounter
--- OUTSIDE RECORDS SUMMARY | 2024-08-30 03:01 | XMS_ITS | Encounter Summary ---
Author Organization [facility] Address [address] [place] [address] Care Team Providers Care Catalog Library Assistant Name Role Phone Laura Reid MD Primary Care Provider Unava ilable Reason for Referral * Outpatient Services (Routine) - Closed Specialty Diagnoses / Procedures Referred By Contac t Referred To Contact Cardiology Diagnoses Generalized hypermobility of joints Procedures ECHO PEDIATRIC COMPLETE Alysia Valdez MD [address] [facility] [address] [place] [phone] Stlo Ped Non Invasive Cardiol [facility] [facility] [address] [place] [address] Referral ID Status Reason Start Date Expiration Date V isits Requested Visits Authorized [id number] Closed ST[facility] CTS 07/20/2017 08/19/2017 1 1 OPHERE OPERATOR Reason for Visit * Outpatient Services (Routine) - Closed Specialty Diagnoses / Procedures Referred By Contac t Referred To Contact Cardiology Diagnoses Generalized hypermobility of joints Procedures ECHO PEDIATRIC Alysia Morton MD [address] [facility] [address] [place] [phone] Stlo Ped Non Invasive Cardiol [facility] [address] [place] [address] Referral ID Status Reason Start Date Expiration Date V isits Requested Visits Authorized [id number] Closed STL CTS 07/20/2017 08/19/2017 1 1 Encounter Details Date Type Department Care Team (Latest Contact Info) Description 08/10/2017 12:38 PM DROSOPHERE OPERATOR - 08/10/2017 11:59 PM DROSOPHERE OPERATOR Hospital Encounter [facility] Pediatric Diag Cardio [facility] [place] [facility] [address] [place] [address] Alysia Valdez MD [address] [facility] [address] [place] [address] Discharge Disposition: Home or Self Care Social [...] daily. 04/09/2017 documented as of this encounter Progress Notes * Essie Khan CGC - 08/11/2017 1:43 PM CST LMR for patient to call back OPHERE OPERATOR * Alysia Valdez MD - 08/11/2017 10:39 AM CST Josephine has a normal echo. She does not meet clinical criteria for hypermobile type EDS since she does not have enough systemic points. 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 If Josephine were to develop other systemic signs of connective tissue disorder (organ prolapse, hernia, abnormal scarring, pneumothorax, scoliosis) the family can call me for reevaluation. Alysia Valdez MD [facility] Genetics [phone] OPHERE OPERATOR documented in this encounter Plan of Treatment Not on file documented as of this encounter Procedures Procedure Name Priority Date/Time Associated Diagnosis Comments ECHO PEDIATRIC COMPLETE Routine 08/10/2017 1:17 PM DROSOPHERE OPERATOR Generalized hypermobility of joints documented in this encounter Results * ECHO PEDIATRIC COMPLETE (08/10/2017 1:17 PM DROSOPHERE OPERATOR) 08/10/2017 12:5 6 PM DROSOPHERE OPERATOR Narrative INTERFACE SYSTEM - 08/11/2017 9:01 AM DROSOPHERE OPERATOR *[facility]* Pediatric Echocardiogram Report M-mode, complete 2D, complete spectral Doppler, and color Doppler PATIENT: ?Josephine Alejandre ??*STUDY DATE/TIME:* Aug 10 2017 ?12:56PM ? *HEIGHT:* 157.5cm / (62in) /AGE: ?2000 / ?*WEIGHT:* 76.2kg / (167.6lb) ?17yr GENDER: ? F ? *BSA/BMI:* 1.85m^2 / 30.7kg/m^2 ?*BP:* 116 / 71 *IMAGING FACILITY:* [facility] *REFERRING PHYSICIAN:* Alysia Valdez *ORDERING PROVIDER:* Alysia Valdez *READING PHYSICIAN:* Conrado Roe M.D. *MAT ROLLER:* Yanet Deshpande RDCS, RN REASON FOR EXAM: ? Hypermobility, R/O Joe-Danlos. STUDY AND PROCEDURE DATA: ??Pediatric transthoracic echocardiography. Institution: [facility] . ?Height percentile: 18.9. ?Weight percentile: 91.6. [...] Conrado Roe M.D. 08/11/2017 09:01 Procedure Note Bhupinder, Conrado P, MD - 08/11/2017 *[facility]* Pediatric Echocardiogram Report M-mode, complete 2D, complete spectral Doppler, and color Doppler PATIENT: Josephine Alejandre *STUDY DATE/TIME:* Aug 10 2017 12:56PM *HEIGHT:* 157.5cm / (62in) /AGE: 06 2000 / *WEIGHT:* 76.2kg / (167.6lb) 17yr GENDER: F *BSA/BMI:* 1.85m^2 / 30.7kg/m^2 *BP:* 116 / 71 *IMAGING FACILITY:* [facility] *REFERRING PHYSICIAN:Alysia Day *ORDERING PROVIDER:Alysia Day *READING PHYSICIAN:Justin Roe M.D. *MAT ROLLER:* Yanet Deshpande RDCS, RN REASON FOR EXAM: Hypermobility, R/O Joe-Danlos. STUDY AND PROCEDURE DATA: Pediatric transthoracic echocardiography. Institution: [facility] . Height percentile: 18.9. Weight percentile: 91.6. [...] Roe M.D. 08/11/2017 09:01 Alysia Valdez MD [employer] [facility] Organization Address City/State/ZIP Co de Phone Number INTERFACE SYSTEM Refer to clinic/hospital department documented in this encounter Visit Diagnoses Diagnosis Generalized hypermobility of joints Other joint derangement, not elsewhere classified, multiple sites documented in this encounter Care Teams Catalog Library Assistant Relationship Specialty Start Date End Date Laura Reid MD PCP - General Pediatrics 07/02/17 documented as of this encounter
--- OUTSIDE RECORDS SUMMARY | 2024-08-30 03:01 | XMS_ITS | Encounter Summary ---
Author Organization [facility] Address [address] [place] [address] Phone Care Team Providers Care Social Media Content Manager Name Role Phone Nubia Brown PAC Primary Care Provider + Reason for Visit * Reason Onset Date Comments dismissal 01/30/2023 Letter of dismis jyotsna Encounter Details Date Type Department Care Team (Late st Contact Info) Description 01/30/2023 Telephone [facility] - Family Medicine 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 * Telephone Encounter - Leigha Mathew RN - 01/30/2023 1:41 PM CDT Directed to write letter of dismissal due to pt recently forging provider's signature on work excuse letter. Placed draft on provider's desk for review. documented in this encounter Plan of Treatment [...] Ready to change Department associated with goal: [facility] Steps to achieve goal: will share personal trauma story in counseling/psychotherapy sessions. will learn/identify how trauma has impacted personal life, physical health and behavioral health. will identify and practice, at least two, skills/activities/routines, to gain relief from the impact of trauma. Behavioral Health Behavioral Health No Trcai Romero LCSW Note: Carlene will report a decrease in symptoms of depression to have reduction of depression symptoms. Goal Reviewed with: patient Readiness to change: Ready to change Department associated with goal: [facility] Steps to achieve goal: [...] of this encounter Care Teams Social Media Content Manager Relationship Specialty Start Date End Date Nubia Brown PAC [address] [place] [address] PCP - General Physician Dental Mechanic 08/13/20 03/01/23 documented as of this encounter
--- OUTSIDE RECORDS SUMMARY | 2024-08-30 03:01 | XMS_ITS | Encounter Summary ---
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 No / Unsure 09/09/2022 2:37 PM COURTROOM DEPUTY documented as of this encounter Plan of Treatment Not on file documented as of this encounter Goals Goal Patient Goal Type Associated Problems Recent Progress Patient-Stated? Author Behavioral Health Behavioral Health Yes rTaci Romero, MANAGER CONTINUOUS IMPROVEMENT Note: I just need to be able to handle this and talk to someone. will gain insight regarding impact of trauma and gain relief from traumatic stress. Goal Reviewed with: patient Readiness to change: Ready to change Department associated with goal: [facility] Steps to achieve goal: will share personal trauma story in counseling/psychotherapy sessions. will learn/identify how trauma has impacted personal life, physical health and behavioral health. will identify and practice, at least two, skills/activities/routines, to gain relief from the impact of trauma. Behavioral Health Behavioral Health Traci Howe, MANAGER CONTINUOUS IMPROVEMENT Note: Carlene will report a decrease in symptoms of depression to have reduction of depression symptoms. Goal Reviewed with: patient Readiness to change: Ready to change Department associated with goal: [facility] Steps to achieve goal: [...] documented as of this encounter Care Teams Quartz Miner Relationship Specialty Start Date End Date Nubia Brown PAC [address] [place] [address] PCP - General Physician Sugar Mixer 08/13/20 03/01/23 documented as of this encounter
--- OUTSIDE RECORDS SUMMARY | 2024-08-30 03:01 | XMS_ITS | Encounter Summary ---
Author Organization [facility] Address [address] 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 No / Unsure 06/24/2022 3:56 PM CDT documented as of this encounter Miscellaneous Notes * Telephone Encounter - Nubia Brown PAC - 07/21/2022 8:28 AM NANOTECHNOLOGY ENGINEERING TECHNICIAN approved TECHNOLOGY ENGINEERING TECHNICIAN * Telephone Encounter - Latrice De Souza RN - 07/21/2022 8:21 AM NANOTECHNOLOGY ENGINEERING TECHNICIAN PDMP and MEDD reviewed. Dispensed 07-02-22 as a 2-day supply (15 tabs) Medication failed the protocol, provider to review and approve the medication order if appropriate. Requested Prescriptions Pending Prescriptions Disp Refills HYDROcodone-acetaminophen (NORCO) 5-325 MG Tablet 15 Tablet 0 Sig: Take 1 Tablet by mouth every 4 hours as needed for Moderate or more severe pain. Not Delegated - Opioid Combinations Protocol Failed - 07/19/2022 10:14 AM Failed - This refill cannot be delegated Passed - Visit with relevant provider in past 12 months or upcoming 90 days Recent Visits Date Type Provider Dept 05/08/22 Office Visit Nubia Brown PAC [facility] 03/04/22 Office Visit Nubia Brown PAC [facility] 02/18/22 Office Visit Nubia Brown PAC [facility] 01/02/22 Office Visit Nubia Brown PAC [facility] 12/05/21 Telemedicine Nubia Brown PAC [facility] Showing recent visits within past 365 days and meeting all other requirements Future Appointments Date Type Provider Dept 08/07/22 Appointment Nubia Brown PAC [facility] Showing future appointments within next 90 days and meeting all other requirements TECHNOLOGY ENGINEERING TECHNICIAN documented in this encounter Plan of [...] to change Department associated with goal: [facility] Steps to achieve [...] to change Department associated with goal: [facility] Steps to achieve [...] documented as of this encounter Care Teams Form Worker Relationship Specialty Start Date End Date Nubia Brown PAC [address] [place] [address] PCP - General Physician Lambskin Trimmer 08/13/20 03/01/23 documented as of this encounter
--- OUTSIDE RECORDS SUMMARY | 2024-08-30 03:01 | XMS_ITS | Encounter Summary ---
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 No / Unsure 10/20/2022 8:47 AM SERVICE CENTER REPRESENTATIVE documented as of this encounter Plan of Treatment Not on file documented as of this encounter Goals Goal Patient Goal Type Associated Problems Recent Progress Patient-Stated? Author Behavioral Health Behavioral Health Yes Traci Romero, TRAUMA PROGRAM MANAGER Note: I just need to be able to handle this and talk to someone. will gain insight regarding impact of trauma and gain relief from traumatic stress. Goal Reviewed with: patient Readiness to change: Ready to change Department associated with goal: [facility] Steps to achieve goal: will share personal trauma story in counseling/psychotherapy sessions. will learn/identify how trauma has impacted personal life, physical health and behavioral health. will identify and practice, at least two, skills/activities/routines, to gain relief from the impact of trauma. Behavioral Health Behavioral Health Traci Howe, TRAUMA PROGRAM MANAGER Note: Carlene will report a decrease in symptoms of depression to have reduction of depression symptoms. Goal Reviewed with: patient Readiness to change: Ready to change Department associated with goal: [facility] Steps to achieve goal: [...] documented as of this encounter Care Teams Director Of Security Relationship Specialty Start Date End Date Nubia Brown PAC [address] [place] [address] PCP - General Physician Online Affiliate Marketing Manager 08/13/20 03/01/23 documented as of this encounter
--- OUTSIDE RECORDS SUMMARY | 2024-08-30 03:01 | XMS_ITS | Encounter Summary ---
Author Organization [facility] Address [address] 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 No / Unsure 09/09/2022 2:37 PM FURNITURE REMOVALIST'S ASSISTANT documented as of this encounter Miscellaneous Notes * Telephone Encounter - Chasity Thompson RN - 09/24/2022 12:19 PM CST SITUATION: Rectal bleeding x 1 week BACKGROUND: Patient calling with concerns of discoloration of stools. ASSESSMENT: Symptom Description / Location: The past week has noticed yellow specks in stool, black and tarry bowel movements GI is aware of black and tarry stools Last colonoscopy and scope was 06/2022 Abdominal pain and vomiting for the past year Constant abdominal pain for > 2 hours, has hurt since she woke this morning Pain (0-10): 03/02 RECOMMENDATION: See care advice and disposition for Guideline Recommend go to ED now. Patient is in agreement. First positive answer recorded, all responses to prior questions were negative. If symptoms increase, change or if new symptoms develop, call your HCP or call back. Recommendations were based on caller information and is not a diagnosis. Verified and reviewed all triage information with caller. Reason for Disposition ? ? Constant abdominal pain lasting > 2 hours Protocols used: RECTAL [id number] ITURE REMOVALIST'S ASSISTANT documented in this encounter Plan of Treatment Not on file documented as of this encounter Goals Goal Patient Goal Type Associated Problems Recent Progress Patient-Stated? Author Behavioral Health Behavioral Health Yes Traci Romero, MEDICAL STAFF DIRECTOR Note: I just need to be able to handle this and talk to someone. will gain insight regarding impact of trauma and gain relief from traumatic stress. Goal Reviewed with: patient Readiness to change: Ready to change Department associated with goal: [facility] Steps to achieve goal: will share personal trauma story in counseling/psychotherapy sessions. will learn/identify how trauma has impacted personal life, physical health and behavioral health. will identify and practice, at least two, skills/activities/routines, to gain relief from the impact of trauma. Behavioral Health Behavioral Health No Traci Romero, MEDICAL STAFF DIRECTOR Note: Carlene will report a decrease in symptoms of depression to have reduction of depression symptoms. Goal Reviewed with: patient Readiness to change: Ready to change Department associated with goal: [facility] Steps to [...] documented as of this encounter Care Teams Pearl Diver Relationship Specialty Start Date End Date Nubia Brown PAC [address] [place] [address] PCP - General Physician Track Manager 08/13/20 03/01/23 documented as of this encounter
--- OUTSIDE RECORDS SUMMARY | 2024-08-30 03:01 | XMS_ITS | Encounter Summary ---
Author Organization [facility] Address [address] 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 No / Unsure 08/06/2022 12:35 PM METHODS SPECIALIST documented as of this encounter Miscellaneous Notes * Telephone Encounter - Peyton Kay RN - 09/01/2022 4:58 PM CST PDMP 08/20/22 - 7 days Medication failed the protocol, provider to review and approve the medication order if appropriate. Requested Prescriptions Pending Prescriptions Disp Refills HYDROcodone-acetaminophen (NORCO) 7.5-325 MG Tablet 30 Tablet 0 Sig: Take 1 Tablet by mouth every 6 hours as needed for Severe pain. Not Delegated - Opioid Combinations Protocol Failed - 09/01/2022 12:42 PM Failed - This refill cannot be delegated Passed - Visit with relevant provider in past 12 months or upcoming 90 days Recent Visits Date Type Provider Dept 08/07/22 Office Visit Nubia Brown, PAC [facility] 05/08/22 Office Visit Nubia Brown, PAC [facility] 03/04/22 Office Visit Nubia Brown, PAC [facility] 02/18/22 Office Visit Nubia Brown, PAC [facility] 01/02/22 Office Visit Nuiba Brown, PAC [facility] 12/05/21 Telemedicine Nubia Brown, PAC [facility] Showing recent visits within past 365 days and meeting all other requirements Future Appointments Date Type Provider Dept 09/09/22 Appointment Nubia Brown, PAC [facility] Showing future appointments within next 90 days and meeting all other requirements ODS SPECIALIST documented in this encounter Plan of Treatment Not on file documented as of this encounter Goals Goal Patient Goal Type Associated Problems Recent Progress Patient-Stated? Author Behavioral Health Behavioral Health Yes Varble, Traci A, STEAM BLOCKER Note: I just need to be able to handle this and talk to someone. will gain insight regarding impact of trauma and gain relief from traumatic stress. Goal Reviewed with: patient Readiness to change: Ready to change Department associated with goal: [facility] Steps to achieve goal: will share personal trauma story in counseling/psychotherapy sessions. will learn/identify how trauma has impacted personal life, physical health and behavioral health. will identify and practice, at least two, skills/activities/routines, to gain relief from the impact of trauma. Behavioral Health Behavioral Health No Traci Romero, STEAM BLOCKER Note: Carlene will report a decrease in symptoms of depression to have reduction of depression symptoms. Goal Reviewed with: patient Readiness to change: Ready to change Department associated with goal: [facility] Steps to achieve goal: [...] documented as of this encounter Care Teams Framing Machine Tender Relationship Specialty Start Date End Date Nubia Brown PAC [address] [place] [address] PCP - General Physician Lidar Scientist 08/13/20 03/01/23 documented as of this encounter
--- OUTSIDE RECORDS SUMMARY | 2024-08-30 03:01 | XMS_ITS | Encounter Summary ---
Author Organization [facility] Address [address] 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 No / Unsure 06/16/2022 2:28 PM CDT documented as of this encounter Miscellaneous Notes * Telephone Encounter - Peyton Kay RN - 06/16/2022 2:19 PM CDT PDMP 05/29/22 - 2.5 days supply Medication failed the protocol, provider to review and approve the medication order if appropriate. Requested Prescriptions Pending Prescriptions Disp Refills HYDROcodone-acetaminophen (NORCO) 5-325 MG Tablet 15 Tablet 0 Sig: Take 1 Tablet by mouth every 4 hours as needed for Moderate or more severe pain. Not Delegated - Opioid Combinations Protocol Failed - 06/16/2022 1:53 PM Failed - This refill cannot be delegated Passed - Visit with relevant provider in past 12 months or upcoming 90 days Recent Visits Date Type Provider Dept 05/08/22 Office Visit Nubia Brown, PAC [facility] 03/04/22 Office Visit Nubia Brown, PAC [facility] 02/18/22 Office Visit Nubia Brown, PAC [facility] 01/02/22 Office Visit Nubia Brwon, PAC [facility] 12/05/21 Telemedicine Nubia Brown, PAC [facility] 07/02/21 Office Visit Nubia Brown, PAC [facility] Showing recent visits within past 365 days and meeting all other requirements Future Appointments Date Type Provider Dept 08/07/22 Appointment Nubia Brown PAC [facility] Showing future appointments within next 90 days and meeting all other requirements documented in this encounter Plan of Treatment Not on file documented as of this encounter Goals Goal Patient Goal Type Associated Problems Recent Progress Patient-Stated? Author Behavioral Health Behavioral Health Yes Varble, Traci A, SOFTWARE MANAGER Note: I just need to be able to handle this and talk to someone. will gain insight regarding impact of trauma and gain relief from traumatic stress. Goal Reviewed with: patient Readiness to change: Ready to change Department associated with goal: [facility] Steps to achieve goal: will share personal trauma story in counseling/psychotherapy sessions. will learn/identify how trauma has impacted personal life, physical health and behavioral health. will identify and practice, at least two, skills/activities/routines, to gain relief from the impact of trauma. Behavioral Health Behavioral Health No Traci Romero, SOFTWARE MANAGER Note: Carlene will report a decrease in symptoms of depression to have reduction of depression symptoms. Goal Reviewed with: patient Readiness to change: Ready to change Department associated with goal: [facility] Steps to achieve [...] documented as of this encounter Care Teams Boarding Kennel Or Cattery Operator Relationship Specialty Start Date End Date Nubia Brown PAC [address] [place] [address] PCP - General Physician Sanding Machine Tender 08/13/20 03/01/23 documented as of this encounter
--- OUTSIDE RECORDS SUMMARY | 2024-08-30 03:01 | XMS_ITS | Encounter Summary ---
Author Organization [facility] Address [address] 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 No / Unsure 08/06/2022 12:35 PM EXECUTIVE ADMINISTRATIVE ASSISTANT documented as of this encounter Miscellaneous Notes * Telephone Encounter - Peyton Kay RN - 08/19/2022 5:17 PM CST PDMP [place] 08/12/22 - 7 days PDMP Clonazepam 08/07/22 - 15 days Medication failed the protocol, provider to review and approve the medication order if appropriate. Requested Prescriptions Pending Prescriptions Disp Refills clonazePAM (KlonoPIN) 0.5 MG Tablet 30 Tablet 0 Sig: Take 1 Tablet by mouth 2 times daily as needed for Anxiety (sleep). Not Delegated - Clonazepam Protocol Failed - 08/19/2022 11:04 AM Failed - This refill cannot be delegated Passed - Visit with relevant provider in past 12 months or upcoming 90 days Recent Visits Date Type Provider Dept 08/07/22 Office Visit Nubia Brown PAC [facility] 05/08/22 Office Visit Nubia Brown PAC [facility] 03/04/22 Office Visit Nubia Brown, PAC [facility] 02/18/22 Office Visit Nubia Brown PAC [facility] 01/02/22 Office Visit Nubia Brown PAC [facility] 12/05/21 Telemedicine Nubia Brown PAC [facility] Showing recent visits within past 365 days and meeting all other requirements Future Appointments Date Type Provider Dept 08/28/22 Appointment Nubia Brown PAC [facility] Showing future appointments within next 90 days and meeting all other requirements HYDROcodone-acetaminophen (NORCO) 7.5-325 MG Tablet 30 Tablet 0 Sig: Take 1 Tablet by mouth every 6 hours as needed for Severe pain. Not Delegated - Opioid Combinations Protocol Failed - 08/19/2022 11:04 AM Failed - This refill cannot be delegated Passed - Visit with relevant provider in past 12 months or upcoming 90 days Recent Visits Date Type Provider Dept 08/07/22 Office Visit Nubia Brown, PAC [facility] 05/08/22 Office Visit Nubia Brown, PAC [facility] 03/04/22 Office Visit Nubia Brown, PAC [facility] 02/18/22 Office Visit Nubia Brown, PAC [facility] 01/02/22 Office Visit Nubia Brown, PAC [facility] 12/05/21 Telemedicine Nubia Brown, PAC [facility] Showing recent visits within past 365 days and meeting all other requirements Future Appointments Date Type Provider Dept 08/28/22 Appointment Nubia Brown, PAC [facility] Showing future appointments within next 90 days and meeting all other requirements UTIVE ADMINISTRATIVE ASSISTANT documented in this encounter Plan [...] documented as of this encounter Care Teams Silk Screen Painter Relationship Specialty Start Date End Date Nubia Brown PAC [address] [place] [address] PCP - General Physician Dispatcher Relay 08/13/20 03/01/23 documented as of this encounter
--- OUTSIDE RECORDS SUMMARY | 2024-08-30 03:01 | XMS_ITS | Encounter Summary ---
Author Organization [facility] Address [address] [place] [address] Care Team Providers Care Grainer Machine Name Role Phone Laura Reid MD Primary [...] on filedocumented in this encounter Care Teams Grainer Machine Relationship Specialty Start Date End Date Laura Reid MD PCP - General Pediatrics 07/02/17 documented as of this encounter
--- OUTSIDE RECORDS SUMMARY | 2024-08-30 03:01 | XMS_ITS | Encounter Summary ---
Author Organization [facility] Address [address] 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 It does not contain a letter head, and it mentions symptoms that the pt had, the letter just looks odd. They are wanting to make sure the note is legitimate to make sure they are giving her the support that she needs. She is providing a copy via fax. Please call Evie Mandel back at [phone] (relationship to patient employer) back regarding above referenced patient. Patient's Provider is Nubia Brown PAC. documented in this encounter Plan of Treatment [...] change Department associated with goal: [facility] Steps to achieve goal: will share personal trauma story in counseling/psychotherapy sessions. will learn/identify how trauma has impacted personal life, physical health and behavioral health. will identify and practice, at least two, skills/activities/routines, to gain relief from the impact of trauma. Behavioral Health Behavioral Health No Varble, Traci A, RN REHABILITATION Note: Carlene will report a decrease in symptoms of depression to have reduction of depression symptoms. Goal Reviewed with: patient Readiness to change: Ready to change Department associated with goal: [facility] Steps to [...] documented as of this encounter Care Teams Senior Service Aide Relationship Specialty Start Date End Date Nubia Brown PAC [address] [place] [address] PCP - General Physician Sandwich Artist 08/13/20 03/01/23 documented as of this encounter
--- OUTSIDE RECORDS SUMMARY | 2024-08-30 03:01 | XMS_ITS | Encounter Summary ---
Author Organization [facility] Address [address] [place] [address] Care Team Providers Care Master Control Technician Name Role Phone Laura Reid MD Primary Care Provider Unava ilable Reason for Referral * Radiology Services (Routine) - Closed Specialty Diagnoses / Procedures Referred By Contac t Referred To Contact Diagnoses Encounter for screening for malformation Family history of congenital heart defect Procedures US OB DETAIL SINGLE GEST Chata Figueroa MD 2022 MACHELLE WHITMAN [address] [place] [phone] [facility] 2022 Machelle Ingram [address] [place] [phone] Referral ID Status Reason Start Date Expiration Date Visits Re quested Visits Authorized [id number] Closed 03/31/2024 05/01/2025 1 1 Reason for Visit * Radiology Services (Routine) - Closed Specialty Diagnoses / Procedures Referred By Contac t Referred To Contact Diagnoses Encounter for screening for malformation Family history of congenital heart defect Procedures US OB DETAIL SINGLE GEST Chata Figueroa MD 2022 MACHELLE WHITMAN [address] [place] [phone] [facility] 2022 Machelle Ingram [address] [place] [phone] Referral ID Status Reason Start Date Expiration Date Visits Re quested Visits Authorized [id number] Closed 03/31/2024 05/01/2025 1 1 Encounter Details Date Type Department Care Team (Late st Contact Info) Description 04/21/2024 1:30 PM CDT - 04/21/2024 11:59 PM CDT Hospital Encounter [facility] 2022 Machelle Ingram 3[address] [place] [address] Chata Wiley MD 2022 MACHELLE INGRAM [address] [place] [address] Discharge Disposition: Home or Self [...] Priority Date/Time Associated Diagnosis Comments US OB DETAIL SINGLE GEST Routine 04/21/2024 3:25 PM CDT Encounter for screening for malformation Family history of congenital heart defect documented in this encounter Results * US OB DETAIL SINGLE GEST (04/21/2024 3:25 PM CDT) Anatomical Region Laterality Modality Pelvis Ultrasound 04/21/2024 1:51 PM CDT Narrative 04/21/2024 3:13 PM CDT STL COMP ----- Pat. Name: MARGAUX AREVALO Study Date: 04/21/2024 1:51pm Pat. NO: [id number] Referring ??MD: CHATA WILEY MD Site: [place] [facility] Transcriptionist: Linda Mejia RDMS : 2000 Age: 24 ----- INDICATION ----- Anatomy Survey Family History of Congenital Heart Defect, ? maternal brother Suspected in Fetus Tobacco Use Complicating , Cigarettes ? 4 per day History Marijuana use in CODING ----- Diagnoses ? Z3A.19: Weeks of gestation ?O99.321-099: History Marijuana use in ?O99.332: Tobacco use disorder complicating ?O35.2XX0: Maternal care for (suspected) hereditary disease in fetus ?Z36.3: Encounter for screening for malformations Procedures ?37876: Ultrasound, uterus, real time with image documentation, and maternal evaluation ?plus detailed anatomic examination, transabdominal approach HISTORY ----- OB History ? 4 ?Miscarriages 3 ?A3 MATERNAL ASSESSMENT ----- Physical Exam ? Weight 76 kg. BMI 30.73 kg/m?? METHOD ----- Transabdominal ultrasound examination ----- Us . Number of fetuses: 1 DATING ----- Method of dating: based on stated ELIZABETH GA by prior assessment 19 w + 1 d ELIZABETH by prior assessment: 09/14/2024 Ultrasound examination on: 04/21/2024 GA by U/S based upon: AC, BPD, EFW, Femur, HC GA by U/S 19 w + 3 d ELIZABETH by U/S: 09/12/2024 Assigned: based on stated ELIZABETH, selected on 04/21/2024 Assigned GA 19 w + 1 d Assigned ELIZABETH: 09/14/2024 BIOMETRY ----- BPD ?43.9 ? mm ? 19w 2d ? 57% ?Hadlock OFD ?54.3 ? mm ? 19w 2d ? 57% ?Melinda HC ? 160.6 ?mm ? 18w 6d ? 30% ?Hadlock Cerebellum tr ?20.1 ? mm ? 20w 0d ? 67% ?Ivory Nuchal fold ?2.5 ?mm AC ? 143.5 ?mm ? 19w 5d ? 64% ?Hadlock Femur ?31.7 ? mm ? 19w 6d ? 69% ?Hadlock Humerus ?28.8 ? mm ? 19w 2d ? 58% ?Melinda HC / AC ?1.12 ?16% ? Nicolaides Weight Calculation: EFW ?306 ? g ?19w 4d ?75% ?Hadlock EFW (lb,oz) ?0 lb 11 ? oz EFW by ?Hadlock ([id number]) Head / Face / Neck Biometry: Pharmacy Assistant ? 5.2 ? mm CM ? 5.5 ? mm ? 73% ?Nicolaides Inner IOD ?11.2 ?mm Heart / Great Vessels Biometry: Cardiac axis ?53 ? Extremities / Bony Struc Biometry: FL / BPD ? 0.72 ?85% ?Hadlock FL / HC ?0.20 ?97% ?Hadlock FL / AC ?0.22 ?72% ?Hadlock GENERAL EVALUATION ----- Cardiac activity present. FHR 154 bpm. movements: present. Presentation: cephalic Placenta: Placental site: posterior, fundal Umbilical cord: Cord vessels: 3 vessel cord. Insertion site: placental insertion: normal Amniotic fluid: Amount of AF: normal amount. MVP 3.2 cm ANATOMY ----- The following structures appear normal: Head / Neck ? Cranium. Lateral ventricles. Choroid plexus. Midline falx. Cavum septi pellucidi. Cerebellum. Cisterna ?magna. Thalami. ?Nuchal fold. Face ?Lips. Profile. Nose. Palate. Orbits. Heart / Thorax ?4-chamber view. RVOT view. LVOT view. 3-vessel view. 6-lqrtnx-qugjeon view. Situs. Aortic arch view. ?Superior vena cava. Inferior vena cava. High short axis view. Cardiac rhythm. ?Diaphragm. Abdomen ? Abdominal wall. Stomach. Kidneys. Bladder. Spine ? Cervical spine. Thoracic spine. Lumbar spine. Sacral spine. Extremities / ? Arms. Right hand. Left hand. Legs. Right foot. Left foot. Skeleton The following structures could not be adequately visualized: Heart / Thorax ?Ductal arch view. MATERNAL STRUCTURES ----- Cervix ?Visualized ?Approach - Transabdominal: Cervical length 41.2 mm Right Ovary ? Normal ?Size 42 mm x 31 mm x 14 mm. Vol 9.7 cm?? Left Ovary ?Normal ?Size 26 mm x 16 mm x 19 mm. Vol 4.1 cm?? GROWTH OVERVIEW ----- Exam date ? GA ?BPD (mm) ? HC (mm) ?AC (mm) ? FL (mm) ?HL (mm) ?EFW (g) 04/21/2024 ?19w 1d ?43.9 ?57% ?160.6 ? 30% ?143.5 ?64% ?31.7 ?69% ?28.8 ?58% ?306 ? 75% COMMENT ----- Patient's name and date of were verified by the dirt contractor before the exam IMPRESSION ----- Viable 20 weeks gestation complicated by family history of congenital heart defect and maternal tobacco use The biometry is consistent with the established gestational age No structural malformations or markers of aneuploidy were identified Anatomic survey could not be completed; some images of cardiac anatomy are suboptimal Amniotic fluid volume is normal Posterior fundal placenta with normal placental cord insertion appreciated; placenta is not low-lying Normal cervical length based upon a transabdominal ultrasound assessment Ultrasound cannot identify all structural malformations nor exclude a diagnosis of aneuploidy. Follow-up ultrasound with echo scheduled in 4 weeks Procedure Note Gilberto Monte MD - 04/21/2024 STL COMP ----- Pat. Name:MICKEYKellee Date:04/21/2024 1:51pm Pat. NO: [id number] MD:CHATA WILEY [facility]Linda TinocoDarian MARTIN :2000Age:24 ----- INDICATION ----- Anatomy Survey Family History of Congenital Heart Defect, maternal brother Suspected in Fetus Tobacco Use Complicating , Cigarettes 4 per day History Marijuana use in CODING ----- Diagnoses Z3A.19: Weeks of gestation O99.321-099: History Marijuana use in O99.332: Tobacco use disorder complicatingpregnancy O35.2XX0: Maternal care for (suspected) hereditarydisease in fetus Z36.3: Encounter for screening formalformations Procedures [id number]: Ultrasound, uterus, real time withimage documentation, and maternal evaluation plus detailed anatomic examination,transabdominal approach HISTORY ----- OB History 4 Miscarriages 3 A3 MATERNAL ASSESSMENT ----- Physical Exam Weight 76 kg. BMI 30.73 kg/m?? METHOD ----- Transabdominal ultrasound examination ----- Us . Number of fetuses: 1 DATING ----- Method of dating:based on stated ELIZABETH GA by prior [id number] w + 1 d ELIZABETH by prior assessment:09/14/2024 Ultrasound examination on:04/21/2024 GA by U/S based upon:AC, BPD, EFW, Femur, HC GA by U/S19 w + 3 d ELIZABETH by U/S:09/12/2024 Assigned:based on stated ELIZABETH, selected on 04/21/2024 Assigned GA19 w + 1 d Assigned ELIZABETH:09/14/2024 BIOMETRY ----- BPD 43.9 mm 19w 2d57% Hadlock OFD 54.3 mm 19w 2d57% Melinda HC 160.6 mm 18w 6d30% Hadlock Cerebellum tr 20.1 mm 20w 0d67% Ivory Nuchal fold 2.5 mm AC 143.5 mm 19w 5d64% Hadlock Femur 31.7 mm 19w 6d69% Hadlock Humerus 28.8 mm 19w 2d58% Melinda HC / AC 1.12 16%Nicolaides Weight Calculation: EFW 306 g 19w 4d 75%Hadlock EFW (lb,oz) 0 lb 11 oz EFW by Hadlock ([id number]) Head / Face / Neck Biometry: Pharmacy Assistant 5.2 mm CM 5.5 mm 73%Nicolaides Inner IOD 11.2 mm Heart / Great Vessels Biometry: Cardiac axis 53?? Extremities / Bony Struc Biometry: FL / BPD 0.72 85%Hadlock FL / HC 0.20 97%Hadlock FL / AC 0.22 72%Hadlock GENERAL EVALUATION ----- Cardiac activity present. FHR 154 bpm. movements: present.Presentation: cephalic Placenta: Placental site: posterior, fundal Umbilical cord: Cord vessels: 3 vessel cord. Insertion site: placentalinsertion: normal Amniotic fluid: Amount of AF: normal amount. MVP 3.2 cm ANATOMY ----- The following structures appear normal: Head / Neck Cranium. Lateral ventricles. Choroid plexus.Midline falx. Cavum septi pellucidi. Cerebellum. Cisterna magna. Thalami. Nuchal fold. Face Lips. Profile. Nose. Palate. Orbits. Heart / Thorax 4-chamber view. RVOT view. LVOT view. 3-vesselview. 3-qaodsj-kbckxkv view. Situs. Aortic arch view. Superior vena cava. Inferior vena cava. High shortaxis view. Cardiac rhythm. Diaphragm. Abdomen Abdominal wall. Stomach. Kidneys. Bladder. Spine Cervical spine. Thoracic spine. Lumbar spine.Sacral spine. Extremities / Arms. Right hand. Left hand. Legs. Right foot.Left foot. Skeleton The following structures could not be adequately visualized: Heart / Thorax Ductal arch view. MATERNAL STRUCTURES ----- Cervix Visualized Approach - Transabdominal: Cervical length 41.2mm Right Ovary Normal Size 42 mm x 31 mm x 14 mm. Vol 9.7 cm?? Left Ovary Normal Size 26 mm x 16 mm x 19 mm. Vol 4.1 cm?? GROWTH OVERVIEW ----- Exam date GA BPD (mm) HC (mm) AC (mm) FL(mm) HL (mm) EFW (g) 04/21/2024 19w 1d 43.9 57% 160.6 30% 143.5 64%31.7 69% 28.8 58% 306 75% COMMENT ----- Patient's name and date of were verified by the dirt contractor beforethe exam IMPRESSION ----- Viable 20 weeks gestation complicated by family history ofcongenital heart defect and maternal tobacco use The biometry is consistent with the established gestational age No structural malformations or markers of aneuploidy wereidentified Anatomic survey could not be completed; some images of cardiacanatomy are suboptimal Amniotic fluid volume is normal Posterior fundal placenta with normal placental cord insertionappreciated; placenta is not low-lying Normal cervical length based upon a transabdominal ultrasound assessment Ultrasound cannot identify all structural malformations nor exclude adiagnosis of aneuploidy. Follow-up ultrasound with echo scheduled in 4 weeks Chata Wiley MD US ORDERABLES documented in this encounter Visit Diagnoses Diagnosis Encounter for screening for malformation Family history of congenital heart defect Family history of congenital anomalies documented in this encounter Care Teams Master Control Technician Relationship Specialty Start Date End Date Laura Reid MD PCP - General Pediatrics 07/02/17 documented as of this encounter
--- OUTSIDE RECORDS SUMMARY | 2024-08-30 03:01 | XMS_ITS | Encounter Summary ---
Author Organization [facility] Address [address] 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 No / Unsure 08/06/2022 12:35 PM SEARCH PLANNER documented as of this encounter Miscellaneous Notes * Telephone Encounter - Nubia Brown PAC - 08/11/2022 5:12 PM SEARCH PLANNER Medication sent in CH PLANNER * Telephone Encounter - Leigha Mathew RN - 08/11/2022 5:00 PM SEARCH PLANNER Received fax from [employer] saying insurance would not cover Venlafaxine ER 75 mg capsules for thispt 2 capsules BID, they are requesting 150 mg capsules be ordered. Provider wants pt to take 75 mg for one week and then increase to 150 mg. Spoke to pharmacy and they state this will be covered. CH PLANNER documented in this encounter Plan of Treatment [...] to change Department associated with goal: [facility] Steps to achieve goal: will share personal trauma story in counseling/psychotherapy sessions. will learn/identify how trauma has impacted personal life, physical health and behavioral health. will identify and practice, at least two, skills/activities/routines, to gain relief from the impact of trauma. Behavioral Health Behavioral Health No Traci Romero, SHEET METAL SMITH Note: Carlene will report a decrease in symptoms of depression to have reduction of depression symptoms. Goal Reviewed with: patient Readiness to change: Ready to change Department associated with goal: [facility] Steps to [...] as of this encounter Visit Diagnoses Diagnosis PTSD (post-traumatic stress disorder)- Primary Posttraumatic stress disorder documented in this encounter Additional Health Concerns Assessment Noted Time PHQ-9 Depression Total Score: 23 022 11:00 AM CDT documented as of this encounter Care Teams Golf Club Assembler Relationship Specialty Start Date End Date Nubia Brown PAC [address] [place] [address] PCP - General Physician Spar Finisher 08/13/20 03/01/23 documented as of this encounter
--- OUTSIDE RECORDS SUMMARY | 2024-08-30 03:01 | XMS_ITS | Encounter Summary ---
Author Organization [facility] Address [address] [place] [address] Phone Care Team Providers Care Optometrist/Practice Owner Name Role Phone Nubia Brown PAC Primary Care Provider + Reason for Visit * Reason Onset Date Comments Medication Refill 09/17/2022 Encounter Details Date Type Department Care Team (Late st Contact Info) Description 09/17/2022 MyChart RX Renewal [facility] - [facility] [address] [place] [address] Nubia Brown [facility] [address] [place] [address] Medication Renewal Request Social History Tobacco Use Types Packs/Day Years [...] Coronavirus/COVID-19? No / Unsure 09/09/2022 2:37 PM USER EXPERIENCE ARCHITECT documented as of this encounter Miscellaneous Notes * Telephone Encounter - Tonja Petersen RN - 09/17/2022 3:16 PM CST Medication failed the protocol, provider to review and approve the medication order if appropriate.PDMP reviewed. Last UDS was 05/08/22 Requested Prescriptions Pending Prescriptions Disp Refills HYDROcodone-acetaminophen (NORCO) 7.5-325 MG Tablet 30 Tablet 0 Sig: Take 1 Tablet by mouth every 6 hours as needed for Severe pain. Not Delegated - Opioid Combinations Protocol Failed - 09/17/2022 11:21 AM Failed - This refill cannot be delegated Passed - Visit with relevant provider in past 12 months or upcoming 90 days Recent Visits Date Type Provider Dept 09/09/22 Office Visit Nubia Brown, PAC [facility] 08/07/22 Office Visit Nubia Brown, PAC [facility] 05/08/22 Office Visit Nubia Brown, PAC [facility] 03/04/22 Office Visit Nubia Brown, PAC [facility] 02/18/22 Office Visit Nubia Brown, PAC [facility] 01/02/22 Office Visit Nubia Brown, PAC [facility] 12/05/21 Telemedicine Nubia Brown, PAC [facility] Showing recent visits within past 365 days and meeting all other requirements Future Appointments Date Type Provider Dept 10/07/22 Appointment Nubia Brown PAC [facility] Showing future appointments within next 90 days and meeting all other requirements EXPERIENCE ARCHITECT documented in this encounter Plan of Treatment Not on file documented as of this encounter Goals Goal Patient Goal Type Associated Problems Recent Progress Patient-Stated? Author Behavioral Health Behavioral Health Yes Traci Romero, DIRECTOR OF PHILANTHROPY Note: I just need to be able [...] documented as of this encounter Care Teams Optometrist/Practice Owner Relationship Specialty Start Date End Date Nubia Brown PAC [address] [place] [address] PCP - General Physician Assistant Golf Coach 08/13/20 03/01/23 documented as of this encounter
--- OUTSIDE RECORDS SUMMARY | 2024-08-30 03:01 | XMS_ITS | Encounter Summary ---
Author Organization [facility] Address [address] [place] [address] Phone Care Team Providers Care Business Line Controller Name Role Phone Nubia Brown Primary Care Provider + Reason for Visit * Auth/Cert Specialty Diagnoses / Procedures Referred By Kaleigh t Referred To Contact Diagnoses BLACK TARRY STOOLS Procedures COLONOSCOPY Heide Herrera MD [address] [place] [address] Phone: tel: fax: Referral ID Status Reason Start Date Expiration Date Visits Re quested Visits Authorized [id number] 1 1 Encounter Details Date Type Department Care Team (Late st Contact Info) Description 06/25/2022 6:45 AM CDT Ancillary Procedure [facility] [address] [place] [id number] Heide Herrera MD [address] [place] [address] Social History Tobacco Use Types Packs/Day Years [...] 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 Not on file Not [...] Behavioral Health Behavioral Health No Traci Romero, IASURA Note: Carlene will report a decrease in [...] Procedure Name Priority Date/Time Associated Diagnosis Comments GI IMAGING - COLONOSCOPY Routine 06/25/2022 6:41 AM CDT documented in this encounter Results * GI IMAGING - COLONOSCOPY (06/25/2022 6:41 AM CDT) Heide Herrera MD IMG DIAGNOSTIC ORDERABLES Final Result documented in this encounter Visit Diagnoses Not on filedocumented in this encounter Additional Health Concerns Assessment Noted Time PHQ-9 Depression Total Score: 23 022 11:00 AM CDT documented as of this encounter Care Teams Business Line Controller Relationship Specialty Start Date End Date Nubia Brown, LISA [address] [place] [address] PCP - General Physician Change Agent 08/13/20 03/01/23 documented as of this encounter
--- OUTSIDE RECORDS SUMMARY | 2024-08-30 03:01 | XMS_ITS | Encounter Summary ---
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 No / Unsure 10/24/2022 4:00 PM BUTTON SAWYER documented as of this encounter Plan of Treatment Not on file documented as of this encounter Goals Goal Patient Goal Type Associated Problems Recent Progress Patient-Stated? Author Behavioral Health Behavioral Health Yes Traci Romero, SHEET METAL SUPERINTENDENT Note: I just need to be able to handle this and talk to someone. will gain insight regarding impact of trauma and gain relief from traumatic stress. Goal Reviewed with: patient Readiness to change: Ready to change Department associated with goal: [facility] Steps to achieve goal: will share personal trauma story in counseling/psychotherapy sessions. will learn/identify how trauma has impacted personal life, physical health and behavioral health. will identify and practice, at least two, skills/activities/routines, to gain relief from the impact of trauma. Behavioral Health Behavioral Health Traci Howe, SHEET METAL SUPERINTENDENT Note: Carlene will report a decrease in symptoms of depression to have reduction of depression symptoms. Goal Reviewed with: patient Readiness to change: Ready to change Department associated with goal: [facility] Steps [...] documented as of this encounter Care Teams Smooth And Burr Worker Composites Relationship Specialty Start Date End Date Nubia Brown PAC [address] [place] [address] PCP - General Physician Forestry Hunter 08/13/20 03/01/23 documented as of this encounter
--- OUTSIDE RECORDS SUMMARY | 2024-08-30 03:01 | XMS_ITS | Encounter Summary ---
Author Organization [facility] Address [address] 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 No / Unsure 08/06/2022 12:35 PM VETERINARY TECHNICIAN INSTRUCTOR documented as of this encounter Plan of [...] Ready to change Department associated with goal: [facility] Steps to [...] Ready to change Department associated with goal: [facility] Steps to [...] documented as of this encounter Care Teams Tank Farm Gauger Relationship Specialty Start Date End Date Nubia Brown PAC [address] [place] [address] PCP - General Physician Coin Machine Operator 08/13/20 03/01/23 documented as of this encounter
--- OUTSIDE RECORDS SUMMARY | 2024-08-30 03:01 | XMS_ITS | Encounter Summary ---
Author Organization [facility] Address [address] [place] [address] Phone Care Team Providers Care Requirements Analyst Name Role Phone Nubia Brown Primary Care Provider + Reason for Visit * Auth/Cert Specialty Diagnoses / Procedures Referred By Kaleigh t Referred To Contact Diagnoses BLACK TARRY STOOLS Procedures COLONOSCOPY Heide Herrera MD [address] [place] [address] Phone: tel: fax: Referral ID Status Reason Start Date Expiration Date Visits Re quested Visits Authorized [id number] 1 1 Encounter Details Date Type Department Care Team (Late st Contact Info) Description 06/25/2022 7:51 AM CDT Anesthesia Event [facility] Per[address] [place] [address] Khadar Perez APRN, CHEMICAL TREATMENT PLANT TECHNICIAN [address] [place] [address] Anesthesia Record Procedure Summary Procedure Name Responsible Anesthesiologist Anesthesia Start Time Anesthesia Stop Time COLONOSCOPY- RANDOM COLON BIOPSIES, MILD DIVERTICULOSIS Khadar Perez APRN, CHEMICAL TREATMENT PLANT TECHNICIAN 06/25/22 0751 06/25/22 0830 Events Date Time Event Comment 06/25/2022 0751 0751 An Start 0751 An Start Data 0751 ANASSESSCMPLT 0751 Start Supplemental O2 0751 Anesthesia Ready 0825 Stop Supplemental O2 0825 Stop Data Collection 0825 Transort to Postop 0830 Handoff to RN I completed my SBAR handoff to the receiving nurse. Last vitals BP: 151/82 Temp: 36 ??C (96.8 ??F) Pulse: 80 Resp: 14 SpO2: 100 % 0830 An Stop Last vitals: BP : 151/82 Temp: 36 ??C (96.8 ??F) Pulse: 80 Resp: 14 SpO2: 100 % Meds Name Total propofol 10 mg/mL 452,920 mcg lactated ringers infusion 300 mL * Agents Name Inspired CO2 (mmHg) ETCO2 (mmHg) * Blood No blood administrations on file. Lines, Drains, and Airways Type Details Placement Removal Wound 02/13/21; 0047; Righ t; distal; thumb; laceration; not present on arrival to ED; 03/15/23; 1057 02/13/21 0047 by Gabriela Leon RN 03/15/23 105 by Ayesha Trammell RN PIV-Single Lumen Placement Date: 06/25/22; Placement Time: 722; Catheter Size: 22 G; Orientation: Anterior, Proximal, Right; Location: Forearm; Site Prep: Alcohol; Local Anesth: None; Technique: Anatomical landmarks; Inserted by: Latrice RAO; Insertion Attempts: 1; Difficult Venous Access? 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 No / Unsure 06/24/2022 3:56 PM CDT documented as of this encounter OR Notes * Anesthesia Postprocedure Evaluation - Khadar Perez APRN, CRNA - 06/25/2022 8:35 AM CDT Patient: Josephine Alejandre Procedure Summary Date: 06/25/22 Room / Location: [facility] 01 / [facility] Anesthesia Start: 750 Anesthesia Stop: 829 Procedure: COLONOSCOPY- RANDOM COLON BIOPSIES, MILD DIVERTICULOSIS (N/A ) Diagnosis: (COLONOSCOPY- RANDOM COLON BIOPSIES, MILD DIVERTICULOSIS) Surgeons: Heide Herrera MD Responsible Provider: Khadar Perez APRN, CRNA Anesthesia Type: MAC ASA Status: 2 Anesthesia Type: MAC Last vitals Vitals Value Taken Time BP 91/54 06/25/2228 Temp 36 ??C (96.8 ??F) 06/25/22 08 Pulse 80 06/25/22 0828 Resp 23 06/25/22 0828 SpO2 100 % 06/25/22827 Pain score: 0 Pain management: adequate Patient location during evaluation: GI Lab Patient participation: Sufficiently recovered to participate Level of consciousness: sleepy but conscious Cardiovascular status: acceptable Respiratory status: acceptable Hydration status: acceptable Comments: Vital signs on nursing flowsheet Anesthetic complications: no Airway patency: patent Nausea and Vomiting: none * Anesthesia Preprocedure Evaluation - Khadar Perez APRN, CRNA - 06/25/2022 7:50 AM CDT Anesthesia Evaluation Procedure Information Date/Time: 06/25/22 0730 Procedure: COLONOSCOPY (N/A ) Location: [facility] / [facility] Surgeons: Heide Herrera MD Patient summary reviewed and Nursing notes reviewed No history of anesthetic complications No family history of anesthesia reaction Allergies: -- Topiramate -- Anxiety and Hallucinations -- Psychological problems/ Patient allergies reviewed. Medications: Current Facility-Administered Medications: ??? lactated ringers infusion, 20 mL/hr, Intravenous, Continuous, Heide Herrera MD, Last Rate: 20mL/hr at 06/25/22722, 20 mL/hr at 06/25/22722 Medications Prior to Admission: clonazePAM (KlonoPIN) 0.5 MG Tablet, Take 1 Tablet by mouth 2 times daily as needed for Anxiety (sleep)., Disp: 30 Tablet, Rfl: 0 HYDROcodone-acetaminophen (NORCO) 5-325 MG Tablet, Take 1 Tablet by mouth every 4 hours as needed for Moderate or more severe pain., Disp: 15 Tablet, Rfl: 0 omeprazole (PriLOSEC) 40 MG CAPSULE DELAYED RELEASE, Take 1 Capsule by mouth daily. (Patient not taking: Reported on 06/25/2022), Disp: 90 Capsule, Rfl: 0 ondansetron (Zofran) 8 MG Tablet, Take 1 Tablet by mouth every 8 hours as needed for Nausea - 1st line. (Patient not taking: No sig reported), Disp: 30 Tablet, Rfl: 1 Simethicone (ANTI GAS PO), Take by mouth 4 times daily. (Patient not taking: Reported on 06/16/2022), Disp: , Rfl: sucralfate (CARAFATE) 1 GM Tablet, Take 1 Tablet by mouth 4 times daily. Take 1 hour prior to meals3 times daily and at bedtime, Disp: 120 Tablet, Rfl: 0 venlafaxine (EFFEXOR-XR) 150 MG CAPSULE SR 24 HR, Take 1 Capsule by mouth daily. (Patient not taking: Reported on 06/25/2022), Disp: 90 Capsule, Rfl: 1 Patient medications reviewed. Airway Mallampati: II TM distance: <3 FB Neck ROM: full Dental - normal exam Pulmonary - negative ROS and normal exam breath sounds clear to auscultation Cardiovascular - negative ROS and normal exam Exercise tolerance: good Rhythm: regular Rate: normal Neuro/Psych (+) headaches, psychiatric history GI/Hepatic/Renal (+) GERD, Endo/Other Risks, benefits, alternatives discussed with:patient. Anesthesia Plan ASA 2 MAC intravenous induction Anesthetic plan and risks discussed with Patient. Plan discussed with CHEMICAL TREATMENT PLANT TECHNICIAN and surgeon. documented in this encounter Plan of Treatment [...] MAR Action Action Date Dose Rate Site propofol (DIPRIVAN) injection Intravenous, CONTINUOUS (in OR), Starting on Thu06/25/22 at 0758, Until Thu06/25/22 at 0830 New Bag 06/25/2022 7:58 AM CDT 200 mcg/kg/min 104.52 mL/hr documented in this encounter Additional Health Concerns Assessment Noted Time PHQ-9 Depression Total Score: 23 022 11:00 AM CDT documented as of this encounter Care Teams Requirements Analyst Relationship Specialty Start Date End Date Nubia Brown, LISA [address] [place] [address] PCP - General Physician Medical Claims Representative 08/13/20 03/01/23 documented as of this encounter
--- OUTSIDE RECORDS SUMMARY | 2024-08-30 03:01 | XMS_ITS | Encounter Summary ---
Author Organization [facility] Address [address] [place] [address] Phone Care Team Providers Care Indexer Name Role Phone Provider, None Primary Care Provider Unavailabl e Reason for Visit * Reason Onset Date Comments Social Concerns 02/16/2024 Encounter Details Date Type Department Care Team (Late st Contact Info) Description 02/16/2024 Patient Outreach [facility] [address] [place] [address] Navigator, [employer] [place] Social Concerns Social History Tobacco Use Types Packs/Day Years Used Date Smoking Tobacco: Every Day Cigarettes 0.5 3 Smokeless Tobacco: Never Alcohol Use Standard Drinks/Week Comments Yes 0 (1 standard drink = 0.6 oz pur e alcohol) Social AHC Utilities Answer Date Recorded In the past 12 months has [employer], gas, oil, or water [employer] threatened to shut off services in your home? Yes 02/16/2024 Social Connection and Isolation Panel [NHANES] A nswer Date Recorded In a typical week, how many times do you talk on the phone with family, friends, or neighbors? Once a week 02/16/2024 How often do you get together with friends or re latives? Once a week 02/16/2024 How often do you attend restoration or taoism serv ices? Never 02/16/2024 Do you belong to any clubs o r organizations such as restoration groups, unions, fraternal or athletic groups, or [...] Total Score - Questions 1-9 23 12/22 [facility] - Occupational Stress Questionnaire Answer Date Recorded [...] any time in the past 12 m onths, were you homeless or living in a mcc (including now)? 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 Answer Date of Assessment Author No 02/16/2024 1:39 PM Raegan Irizarry * Within the last year, have you been afraid of your partner or ex-partner? Answer Date of Assessment Author No 02/16/2024 1:39 PM Raegan Irizarry * Within the last year, have you been raped or forced to have any kind of sexual activity by your partner or ex-partner? Answer Date of Assessment Author No 02/16/2024 1:39 PM Raegan Irizarry * Within the last year, have you been kicked, hit, slapped, or otherwise physically hurt by your partner or ex-partner? Answer Date of Assessment Author No 02/16/2024 1:39 PM Raegan Irizarry * Question Answer Date of Assessment Author Q1: How often do you have a drink containing alcohol? Never 02/16/2024 1:39 PM Shreya Irizarry Q2: How many drinks containing alcohol do you have on a typical day when you are drinking? Patient does not drink 02/16/2024 1:39 PM CDT Raegan Olivo Q3: How often do you have six or more drinks on one occasion? Never 02/16/2024 1:39 PM CDT Shreya Olivo documented as of this encounter Progress Notes * Raegan Olivo - 02/16/2024 1:45 PM CDT Contacted patient to assess social determinants of health needs. Reached patient. Patient has SDOH needs. Provided patient with contact information for financial, stress, housing, food, and utility needs.. documented in this encounter Plan of Treatment [...] Ready to change Department associated with goal: [facility] Steps [...] Ready to change Department associated with goal: [facility] Steps [...] with depression. documented as of this encounter Interventions Community Resource Recommendations Community Resource Services Recommended Domains Addressed Status Status Reason/Outcome Date/Time [facility] Government Benefits, Manager Market Development Housing, Public Housing, Residential Housing Financial Resource Strain, Housing Stability Recommended 08/29/2024 1:01 PM CURBSTONE SETTER [employer] [facility] Emergency Food, Food Pantry Food Insecurity Recommended 08/29/2024 1:01 PM CURBSTONE SETTER [facility] Financial Resource Needs Financial Resource Strain, Utilities Recommended 08/29/2024 1:01 PM CURBSTONE SETTER [facility] Financial Resource Needs Financial Resource Strain, Utilities Recommended 08/29/2024 1:01 PM CURBSTONE SETTER [facility] Help Find Housing, Assisted Housing, Residential Housing Housing Stability Recommended 08/29/2024 1:01 PM CURBSTONE SETTER [facility] Financial Resource Needs, Housing Insecurity Needs Financial Resource Strain, Utilities Recommended 08/29/2024 1:01 PM CURBSTONE SETTER [facility] Financial Resource Needs Financial Resource Strain, Utilities Recommended 08/29/2024 1:01 PM CURBSTONE SETTER documented as of this encounter Visit Diagnoses Not on filedocumented in this encounter Additional Health Concerns Assessment Noted Time PHQ-9 Depression Total Score: 23 022 11:00 AM CDT documented as of this encounter Care Teams Indexer Relationship Specialty Start Date End Date Provider, None [place] PCP - General 03/15/23 documented as of this encounter
--- OUTSIDE RECORDS SUMMARY | 2024-08-30 03:01 | XMS_ITS | Encounter Summary ---
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 No / Unsure 08/06/2022 12:35 PM CARPENTER ASSEMBLER documented as of this encounter Plan of Treatment Not on file documented as of this encounter Goals Goal Patient Goal Type Associated Problems Recent Progress Patient-Stated? Author Behavioral Health Behavioral Health Yes Traci Romero, CAR MOVER Note: I just need to be able to handle this and talk to someone. will gain insight regarding impact of trauma and gain relief from traumatic stress. Goal Reviewed with: patient Readiness to change: Ready to change Department associated with goal: [facility] Steps to achieve goal: will share personal trauma story in counseling/psychotherapy sessions. will learn/identify how trauma has impacted personal life, physical health and behavioral health. will identify and practice, at least two, skills/activities/routines, to gain relief from the impact of trauma. Behavioral Health Behavioral Health Traci Howe, CAR MOVER Note: Carlene will report a decrease in symptoms of depression to have reduction of depression symptoms. Goal Reviewed with: patient Readiness to change: Ready to change Department associated with goal: [facility] Steps to [...] documented as of this encounter Care Teams Suggestion Clerk Relationship Specialty Start Date End Date Nubia Brown PAC [address] [place] [address] PCP - General Physician Senior Gis Analyst 08/13/20 03/01/23 documented as of this encounter
--- OUTSIDE RECORDS SUMMARY | 2024-08-30 03:01 | XMS_ITS | Encounter Summary ---
Author Organization [facility] Address [address] 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 No / Unsure 09/09/2022 2:37 PM SURGICAL COORDINATOR documented as of this encounter Miscellaneous Notes * Telephone Encounter - Peyton Kay RN - 09/22/2022 12:59 PM CST PDMP 09/09/22 - 15 days Medication failed the protocol, provider to review and approve the medication order if appropriate. Requested Prescriptions Pending Prescriptions Disp Refills clonazePAM (KlonoPIN) 0.5 MG Tablet 30 Tablet 0 Sig: Take 1 Tablet by mouth 2 times daily as needed for Anxiety (sleep). Not Delegated - Clonazepam Protocol Failed - 09/22/2022 12:07 AM Failed - This refill cannot be delegated Passed - Visit with relevant provider in past 12 months or upcoming 90 days Recent Visits Date Type Provider Dept 09/09/22 Office Visit Nubia Brown, PAC [facility] 08/07/22 Office Visit Nubia Brown, PAC [facility] 05/08/22 Office Visit Nubia Brown, PAC [facility] 03/04/22 Office Visit Nubia Brown, PAC [facility] 02/18/22 Office Visit Nubia Brown, PAC [facility] 01/02/22 Office Visit Nubia Brown, PAC [facility] 12/05/21 Telemedicine Nubia Brown, PAC [facility] Showing recent visits within past 365 days and meeting all other requirements Future Appointments Date Type Provider Dept 10/07/22 Appointment Nubia Brown, PAC [facility] Showing future appointments within next 90 days and meeting all other requirements ICAL COORDINATOR documented in this encounter Plan of Treatment Not on file documented as of this encounter Goals Goal Patient Goal Type Associated Problems Recent Progress Patient-Stated? Author Behavioral Health Behavioral Health Yes Traci Romero, SENIOR GAME DESIGNER Note: I just need to be able to handle this and talk to someone. will gain insight regarding impact of trauma and gain relief from traumatic stress. Goal Reviewed with: patient Readiness to change: Ready to change Department associated with goal: [facility] Steps to achieve [...] to change Department associated with goal: [facility] Steps to achieve [...] unspecified type Anxiety and depression Dysthymic disorder documented in this encounter Additional Health Concerns Assessment Noted Time PHQ-9 Depression Total Score: 23 022 11:00 AM CDT documented as of this encounter Care Teams Investigator Narcotics Relationship Specialty Start Date End Date Nubia Brown PAC [address] [place] [address] PCP - General Physician Elevated Work Platform Operator 08/13/20 03/01/23 documented as of this encounter
--- OUTSIDE RECORDS SUMMARY | 2024-08-30 03:01 | XMS_ITS | Encounter Summary ---
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 No / Unsure 09/24/2022 1:13 PM PROFESSOR OF BUSINESS ADMINISTRATION documented as of this encounter Plan of Treatment Not on file documented as of this encounter Goals Goal Patient Goal Type Associated Problems Recent Progress Patient-Stated? Author Behavioral Health Behavioral Health Yes Traci Romero, STEEL CHECKER Note: I just need to be able to handle this and talk to someone. will gain insight regarding impact of trauma and gain relief from traumatic stress. Goal Reviewed with: patient Readiness to change: Ready to change Department associated with goal: [facility] Steps to achieve goal: will share personal trauma story in counseling/psychotherapy sessions. will learn/identify how trauma has impacted personal life, physical health and behavioral health. will identify and practice, at least two, skills/activities/routines, to gain relief from the impact of trauma. Behavioral Health Behavioral Health Traci Howe, STEEL CHECKER Note: Carlene will report a decrease in symptoms of depression to have reduction of depression symptoms. Goal Reviewed with: patient Readiness to change: Ready to change Department associated with goal: [facility] Steps to [...] documented as of this encounter Care Teams Custom Van Converter Relationship Specialty Start Date End Date Nubia Brown PAC [address] [place] [address] PCP - General Physician Gas Main And Line Fitter 08/13/20 03/01/23 documented as of this encounter
--- OUTSIDE RECORDS SUMMARY | 2024-08-30 03:01 | XMS_ITS | Encounter Summary ---
Author Organization [facility] Address [address] 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 No / Unsure 09/24/2022 1:13 PM STEM LEAD FORMER documented as of this encounter Miscellaneous Notes * Telephone Encounter - Tonja Petersen RN - 10/15/2022 10:21 AM CST Medication failed the protocol, provider to review and approve the medication order if appropriate. Requested Prescriptions Pending Prescriptions Disp Refills sucralfate (CARAFATE) 1 GM Tablet 120 Tablet 0 Sig: Take 1 Tablet by mouth 4 times daily. Take 1 hour prior to meals 3 times daily and at bedtime Sucralfate Protocol Passed - 10/15/2022 9:38 AM Passed - Visit with relevant provider in past 12 months or upcoming 90 days Recent Visits Date Type Provider Dept 09/09/22 Office Visit Nubia Brown, PAC [facility] 08/07/22 Office Visit Nubia Brown, PAC [facility] 05/08/22 Office Visit Nubia Brown, PAC [facility] 03/04/22 Office Visit Nubia Brown, PAC [facility] 02/18/22 Office Visit Nubia Brown PAC [facility] 01/02/22 Office Visit Nubia Brown, PAC [facility] 12/05/21 Telemedicine Nubia Brown, PAC [facility] Showing recent visits within past 365 days and meeting all other requirements Future Appointments Date Type Provider Dept 10/17/22 Appointment Nubia Brown PAC [facility] Showing future appointments within next 90 days and meeting all other requirements ondansetron (Zofran) 8 MG Tablet 30 Tablet 1 Sig: Take 1 Tablet by mouth every 8 hours as needed for Nausea - 1st line. Not Delegated - 5-HT3 Antagonists Protocol Failed - 10/15/2022 9:38 AM Failed - This refill cannot be delegated Passed - Visit with relevant provider in past 12 months or upcoming 90 days Recent Visits Date Type Provider Dept 09/09/22 Office Visit Nubia Brown, PAC [facility] 08/07/22 Office Visit Nubia Brown, PAC [facility] 05/08/22 Office Visit Nubia Brown, PAC [facility] 03/04/22 Office Visit Nubia Brown, PAC [facility] 02/18/22 Office Visit Nubia Brown, PAC [facility] 01/02/22 Office Visit Nubia Brown, PAC [facility] 12/05/21 Telemedicine Nubia Brown, PAC [facility] Showing recent visits within past 365 days and meeting all other requirements Future Appointments Date Type Provider Dept 10/17/22 Appointment Nubia Brown, PAC [facility] Showing future appointments within next 90 days and meeting all other requirements LEAD FORMER documented in this encounter Plan of [...] to change Department associated with goal: [facility] Steps to achieve [...] to change Department associated with goal: [facility] Steps to achieve [...] as of this encounter Visit Diagnoses Diagnosis Nausea and vomiting, unspecified vomiting type documented in this encounter Additional Health Concerns Assessment Noted Time PHQ-9 Depression Total Score: 23 022 11:00 AM CDT documented as of this encounter Care Teams Cuff Slitter Relationship Specialty Start Date End Date Nubia Brown PAC [address] [place] [address] PCP - General Physician Receptionist Secretary 08/13/20 03/01/23 documented as of this encounter
--- OUTSIDE RECORDS SUMMARY | 2024-08-30 03:01 | XMS_ITS | Encounter Summary ---
Author Organization [facility] Address [address] [place] [address] Care Team Providers Care Chief Of Planning Name Role Phone Laura Reid MD Primary [...] on filedocumented in this encounter Care Teams Chief Of Planning Relationship Specialty Start Date End Date Laura Reid MD PCP - General Pediatrics 07/02/17 documented as of this encounter
--- OUTSIDE RECORDS SUMMARY | 2024-08-30 03:01 | XMS_ITS | Encounter Summary ---
Author Organization [facility] Address [address] 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 Requested Prescriptions Pending Prescriptions Disp Refills HYDROcodone-acetaminophen (NORCO) 5-325 MG Tablet 15 Tablet 0 Sig: Take 1 Tablet by mouth every 4 hours as needed for Moderate or more severe pain. Not Delegated - Opioid Combinations Protocol Failed - 08/03/2022 11:43 AM Failed - This refill cannot be delegated Passed - Visit with relevant provider in past 12 months or upcoming 90 days Recent Visits Date Type Provider Dept 05/08/22 Office Visit Nubia Brown PAC [facility] 03/04/22 Office Visit Nubia Brown PAC [facility] 02/18/22 Office Visit Nubia Brown, PAC [facility] 01/02/22 Office Visit Nubia Brown, PAC [facility] 12/05/21 Telemedicine Nubia Brown PAC [facility] Showing recent visits within past 365 days and meeting all other requirements Future Appointments Date Type Provider Dept 08/07/22 Appointment Nubia Brown PAC [facility] Showing future appointments within next 90 days and meeting all other requirements 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 Author Behavioral Health Behavioral Health Yes Traci Romero, MOLD CUTTING MACHINE OPERATOR Note: I just need to be able [...] trauma. Behavioral Health Behavioral Health Traci Howe, MOLD CUTTING MACHINE OPERATOR Note: Carlene will report a decrease in [...] documented as of this encounter Care Teams Maintenance Carpenter Relationship Specialty Start Date End Date Nubia Brown PAC [address] [place] [address] PCP - General Physician Hat Parts Cutter Machine 08/13/20 03/01/23 documented as of this encounter
--- OUTSIDE RECORDS SUMMARY | 2024-08-30 03:01 | XMS_ITS | Encounter Summary ---
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 Given 03/15/2023 9:15 AM CDT 4 mg sulfamethoxazole-trimethopri m DS (BACTRIM DS, SEPTRA DS) 800-160 MG per tablet 1 Tablet 1 Tablet, Oral, ONCE, 1 dose, On 03/15/23 at 1130, Dose based on trimethoprim component, Indications: Urinary Tract InfectionIndications:Urinary Tract Infection Given 03/15/2023 11:02 AM CDT 1 Tablet documented in this encounter Active and Recently Administered Medications Times are shown in CDT. Scheduled Medication Order 03/13/2023 03/14/2023 03/15/2023 0.9 % sodium chloride solution (COMPLETED) at 999 mL/hr, Intravenous, ONCE, 1 dose, On 03/15/23 at 0900 0916 (New Bag - Prov ider: Ayesha Trammell RN)1026 (Stopped - Provider: Ayesha Trammell RN) ketorolac (TORADOL) injection 15 mg (COMPLETED) 15 mg, Intravenous, ONCE, 1 dose, On 03/15/23 at 0900 0916 (Given - Provid er: Aeysha Trammell RN) ondansetron (ZOFRAN) injection 4 mg (COMPLETED) 4 mg, Intravenous, ONCE, 1 dose, On 03/15/23 at 0900 0915 (Given - Provid er: Ayesha Trammell RN) sulfamethoxazole-trimethoprim DS (BACTRIM DS, SEPTRA DS) 800-160 MG per tablet 1 Tablet (COMPLETED) 1 Tablet, Oral, ONCE, 1 dose, On 03/15/23 at 1130, Dose based on trimethoprim component, Indications: Urinary Tract Infection 1102 (Given - Provid er: Ayesha Trammell RN) documented in this encounter Additional Health Concerns Assessment Noted Time PHQ-9 Depression Total Score: 23 022 11:00 AM CDT documented as of this encounter Care Teams Liquid Flavor Compounder Relationship Specialty Start Date End Date Provider, None [place] PCP - General 03/15/23 documented as of this encounter
--- OUTSIDE RECORDS SUMMARY | 2024-08-30 03:02 | XMS_ITS | Encounter Summary ---
Author Organization [facility] Address [address] [place] [address] Phone Care Team Providers Care Master Data Analyst Name Role Phone Nubia Brown PAC Primary Care Provider + Reason for Visit * Reason Onset Date Comments Medication Refill 04/14/2022 Encounter Details Date Type Department Care Team (Late st Contact Info) Description 04/14/2022 MyChart RX Renewal [facility] [address] [place] [address] Nubia Brown PAC [address] [place] [address] Medication Renewal Reviewed Social History Tobacco Use [...] Sexually Active Control Partners Comments Yes Comments Unknown Sex and Gender Information Value Date Recorded Sex Assigned at Not on file Legal Sex Female 9:35 PM CDT Gender Identity Not on file Sexual Orientation Not on file 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 No / Unsure 04/01/2022 7:25 AM CDT documented as of this encounter Miscellaneous Notes * Telephone Encounter - Peyton Kay RN - 04/15/2022 12:28 PM CDT PDMP 03/20/22 - 15 days Medication failed the protocol, provider to review and approve the medication order if appropriate. Requested Prescriptions Pending Prescriptions Disp Refills clonazePAM (KlonoPIN) 0.5 MG Tablet 30 Tablet 0 Sig: Take 1 Tablet by mouth 2 times daily as needed for Anxiety (sleep). Not Delegated - Clonazepam Protocol Failed - 04/14/2022 4:35 PM Failed - This refill cannot be delegated Passed - Visit with relevant provider in past 12 months or upcoming 90 days Recent Visits Date Type Provider Dept 03/04/22 Office Visit Nubia Brown, PAC [facility] 02/18/22 Office Visit Nubia Brown, PAC [facility] 01/02/22 Office Visit Nubia Brown, PAC [facility] 12/05/21 Telemedicine Nubia Brown, PAC [facility] 07/02/21 Office Visit Nubia Brown, PAC [facility] Showing recent visits within past 365 days and meeting all other requirements Future Appointments No visits were found meeting these conditions. Showing future appointments within next 90 days and meeting all other requirements documented in this encounter Plan of Treatment Not on file documented as of this encounter Goals Goal Patient Goal Type Associated Problems Recent Progress Patient-Stated? Author Behavioral Health Behavioral Health Yes Traci Romero, PHOTO TECHNICIAN Note: I just need to be able to handle this and talk to someone. will gain insight regarding impact of trauma and gain relief from traumatic stress. Goal Reviewed with: patient Readiness to change: Ready to change Department associated with goal: [facility] Steps to achieve goal: will share personal trauma story in counseling/psychotherapy sessions. will learn/identify how trauma has impacted personal life, physical health and behavioral health. will identify and practice, at least two, skills/activities/routines, to gain relief from the impact of trauma. Behavioral Health Behavioral Health Traci Howe, PHOTO TECHNICIAN Note: Carlene will report a decrease in symptoms of depression to have reduction of depression symptoms. Goal Reviewed with: patient Readiness to change: Ready to change Department associated with goal: [facility] Steps [...] documented as of this encounter Care Teams Master Data Analyst Relationship Specialty Start Date End Date Nubia Brown PAC [address] [place] [address] PCP - General Physician Production Line Manager 08/13/20 03/01/23 documented as of this encounter
--- OUTSIDE RECORDS SUMMARY | 2024-08-30 03:02 | XMS_ITS | Encounter Summary ---
Author Organization [facility] Address [address] [place] [address] Phone Care Team Providers Care Detective Narcotics And Vice Name Role Phone Nubia Brown Primary Care Provider + Reason for Visit * Reason Onset Date Comments Results 01/02/2022 Encounter Details Date Type Department Care Team (Late st Contact Info) Description 01/02/2022 Telephone [facility] [address] [place] [address] Nubia Brown PAC [address] [place] [address] Results Social History Tobacco Use Types Packs/Day Years Used Date Smoking Tobacco: Every Day Smokeless Tobacco: Never Alcohol Use Standard Drinks/Week Comments Yes 0 (1 standard drink = 0.6 oz pur e alcohol) Social; occasional PHQ-2 Answer Date Recorded Total Score - Questions 1-9 23 12/22 Education Answer Date Recorded What is the highest level of school you have completed or the highest degree you have received? 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 No / Unsure 01/02/2022 10:17 AM CDT documented as of this encounter Miscellaneous Notes * Telephone Encounter - Sary Haro RN - 01/02/2022 4:45 PM CDT ----- Message from Nubia Brown, PAC sent at 01/02/2022 3:25 PM CDT ----- Vitamin d low, send in 50,000 units weekly for 12 weeks Other labs fine documented in this encounter Plan of Treatment [...] Ready to change Department associated with goal: [facility] Steps to achieve [...] Ready to change Department associated with goal: [facility] Steps to achieve [...] documented as of this encounter Care Teams Detective Narcotics And Vice Relationship Specialty Start Date End Date Nubia Brown PAC [address] [place] [address] PCP - General Physician Management Associate 08/13/20 03/01/23 documented as of this encounter
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
--- OUTSIDE RECORDS SUMMARY | 2024-08-30 03:02 | XMS_ITS | Encounter Summary ---
Author Organization [facility] Address [address] 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 No / Unsure 03/21/2022 12:23 PM CDT documented as of this encounter Miscellaneous Notes * Telephone Encounter - Peyton Kay RN - 03/24/2022 9:29 AM CDT Medication failed the protocol, provider to review and approve the medication order if appropriate. Requested Prescriptions Pending Prescriptions Disp Refills ondansetron (Zofran) 8 MG Tablet 30 Tablet 1 Sig: Take 1 Tablet by mouth every 8 hours as needed for Nausea - 1st line. Not Delegated - 5-HT3 Antagonists Protocol Failed - 03/22/2022 5:11 AM Failed - This refill cannot be delegated Passed - Visit with relevant provider in past 12 months or upcoming 90 days Recent Visits Date Type Provider Dept 03/04/22 Office Visit Nubia Brown, PAC [facility] 02/18/22 Office Visit Nubia Brown, PAC [facility] 01/02/22 Office Visit Nubia Brown, PAC [facility] 12/05/21 Telemedicine Nubia Brown, PAC [facility] 07/02/21 Office Visit Nubia Brown, PAC [facility] Showing recent visits within past 365 days and meeting all other requirements Future Appointments Date Type Provider Dept 04/03/22 Appointment Nubia Brown, PAC [facility] Showing future appointments within next 90 days and meeting all other requirements documented in this encounter Plan of Treatment Not on file documented as of this encounter Goals Goal Patient Goal Type Associated Problems Recent Progress Patient-Stated? Author Behavioral Health Behavioral Health Yes Traci Romero, WOOL SHEARER Note: I just need to be able to handle this and talk to someone. will gain insight regarding impact of trauma and gain relief from traumatic stress. Goal Reviewed with: patient Readiness to change: Ready to change Department associated with goal: [facility] Steps to achieve goal: will share personal trauma story in counseling/psychotherapy sessions. will learn/identify how trauma has impacted personal life, physical health and behavioral health. will identify and practice, at least two, skills/activities/routines, to gain relief from the impact of trauma. Behavioral Health Behavioral Health Traci Howe, WOOL SHEARER Note: Carlene will report a decrease in symptoms of depression to have reduction of depression symptoms. Goal Reviewed with: patient Readiness to change: Ready to change Department associated with goal: [facility] Steps [...] documented as of this encounter Care Teams Manager Of Procurement Relationship Specialty Start Date End Date Nubia Brown PAC [address] [place] [address] PCP - General Physician Information Scientist 08/13/20 03/01/23 documented as of this encounter
--- OUTSIDE RECORDS SUMMARY | 2024-08-30 03:02 | XMS_ITS | Encounter Summary ---
Author Organization [facility] Address [address] 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 No / Unsure 02/18/2022 3:55 PM CDT documented as of this encounter Miscellaneous Notes * Telephone Encounter - Sary Haro, RN - 02/21/2022 12:23 PM CDT ----- Message from Nubia Brown, PAC sent at 02/21/2022 12:19 PM CDT ----- Sodium little low, likely from not eating much Notify if no improvements documented in this encounter Plan of Treatment [...] to change Department associated with goal: [facility] Steps to achieve goal: [...] to change Department associated with goal: [facility] Steps to achieve goal: [...] documented as of this encounter Care Teams Vegetable Specker Relationship Specialty Start Date End Date Nubia Brown PAC [address] [place] [address] PCP - General Physician Marketing Program Manager 08/13/20 03/01/23 documented as of this encounter
--- OUTSIDE RECORDS SUMMARY | 2024-08-30 03:02 | XMS_ITS | Encounter Summary ---
Author Organization [facility] Address [address] [place] [address] Phone Care Team Providers Care Assistant Gm Of Content & Delivery Name Role Phone Nubia Brown PAC Primary Care Provider + Reason for Visit * Reason Onset Date Comments Medication Refill 12/20/2021 Encounter Details Date Type Department Care Team (Late st Contact Info) Description 12/20/2021 MyChart RX Renewal [facility] - [facility] [address] [place] [address] Nubia Brown PAC [address] [place] [address] Medication Renewal Request Social History Tobacco Use [...] suspected to have Coronavirus/COVID-19? No / Unsure 12/05/2021 1:02 PM CDT documented as of this encounter Miscellaneous Notes * Telephone Encounter - Nubia Brown PAC - 12/23/2021 9:36 AM CDT Needs OV in future for further refills. * Telephone Encounter - Peyton Kay RN - 12/23/2021 8:27 AM CDT PDMP 12/05/21 Medication failed the protocol, provider to review and approve the medication order if appropriate. Requested Prescriptions Pending Prescriptions Disp Refills clonazePAM (KlonoPIN) 0.5 MG Tablet 15 Tablet 0 Sig: Take 1 Tablet by mouth nightly as needed for Anxiety (sleep). Not Delegated - Clonazepam Protocol Failed - 12/20/2021 3:36 PM Failed - This refill cannot be delegated Passed - Visit with relevant provider in past 12 months or upcoming 90 days Recent Visits Date Type Provider Dept 12/05/21 Telemedicine Nubia Brown PAC [facility] 07/02/21 Office Visit Nubia Borwn PAC [facility] Showing recent visits within past 365 days [...] Behavioral Health Behavioral Health Yes Traci Romero, FITTING ROOM INSPECTOR Note: I just need to be able to handle this and talk to someone. will gain insight regarding impact of trauma and gain relief from traumatic stress. Goal Reviewed with: patient Readiness to change: Ready to change Department associated with goal: [facility] Steps to achieve goal: will share personal trauma story in counseling/psychotherapy sessions. will learn/identify how trauma has impacted personal life, physical health and behavioral health. will identify and practice, at least two, skills/activities/routines, to gain relief from the impact of trauma. Behavioral Health Behavioral Health Traci Howe, FITTING ROOM INSPECTOR Note: Carlene will report a decrease in symptoms of depression to have reduction of depression symptoms. Goal Reviewed with: patient Readiness to change: Ready to change Department associated with goal: [facility] Steps to achieve goal: [...] encounter Visit Diagnoses Diagnosis Insomnia, unspecified type documented in this encounter Additional Health Concerns Assessment Noted Time PHQ-9 Depression Total Score: 15 021 3:00 PM DINING ROOM SUPERVISOR documented as of this encounter Care Teams Assistant Gm Of Content & Delivery Relationship Specialty Start Date End Date Nubia Brown PAC [address] [place] [address] PCP - General Physician Banquet Houseperson 08/13/20 03/01/23 documented as of this encounter
--- OUTSIDE RECORDS SUMMARY | 2024-08-30 03:02 | XMS_ITS | Encounter Summary ---
Author Organization [facility] Address [address] [place] [address] Phone Care Team Providers Care Carpenter Labor Supervisor Name Role Phone Nubia Brown PAC Primary Care Provider + Reason for Referral * Consult, Test & Initiate Treatment (Routine) - Closed Specialty Diagnoses / Procedures Referred By Controsana t Referred To Contact Diagnoses Anxiety and depression Nubia Brown, LISA [address] [place] [address] Phone: tel: fax: [facility] [address] [phone] Phone: tel: fax: Referral ID Status Reason Start Date Expiration Date Visits Re quested Visits Authorized [id number] Closed 01/02/2022 1 1 Scheduling Instructions Josephine is being referred for severe anxiety/depression. See below for Josephine's current medications, allergies and problem list. Please contact patient for scheduling questions or concerns. CURRENT MEDS: Current Outpatient Medications: clonazePAM (KlonoPIN) 0.5 MG Tablet, Take 1 Tablet by mouth nightly as needed for Anxiety (sleep)., Disp: 15 Tablet, Rfl: 0 fluticasone (FLONASE) 50 MCG/ACT Suspension, 2 Sprays by Nasal route daily. Use in each nostril as directed., Disp: 18.2 mL, Rfl: 0 venlafaxine (EFFEXOR-XR) 75 MG CAPSULE SR 24 HR, Take 1 Capsule by mouth daily., Disp: 90 Capsule, Rfl: 0 No current facility-administered medications for this visit. ALLERGIES: -- Topiramate -- Anxiety and Hallucinations -- Psychological problems/ PROBLEM LIST: There is no problem list on file for this patient. * Consult, Test & Initiate Treatment (Routine) - Closed Specialty Diagnoses / Procedures Referred By Kaleigh t Referred To Contact Behavioral Health Diagnoses Anxiety and depression Nubia Brown PAC [address] [place] [address] Phone: tel: fax: [facility] - Behavioral Health Navigator [address] [phone] Phone: tel: fax: Referral ID Status Reason Start Date Expiration Date Visits Re quested Visits Authorized [id number] Closed 01/02/2022 1 1 Scheduling Instructions Josephine is being referred for needs to find psychiatrist. Please contact patient for scheduling questions or concerns. Reason for Visit * Reason Comments Anxiety Encounter Details Date Type Department Care Team (Late st Contact Info) Description 01/02/2022 11:15 AM CDT Office Visit [facility] - [facility] [address] [place] [address] Nubia Brown PAC [address] [place] [address] Anxiety and depression (Primary Dx); Insomnia, unspecified type; Elevated MCV; BMI 32.0-32.9,adult Discharge Disposition: Discharged to home or Selfcare Social History Tobacco Use Types Packs/Day Years Used Date Smoking Tobacco: Every Day Smokeless Tobacco: Never Tobacco Cessation:Ready to Q [...] 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 No / Unsure 01/02/2022 10:17 AM CDT documented as of this encounter Last Filed Vital Signs Vital Sign Reading Time Taken Comments Blood Pressure 124/68 01/02/2022 11:23 AM CDT Pulse 90 01/02/2022 11:23 AM CDT Temperature 36.7 ??C (98 ??F) 01/02/2022 11:23 AM CDT Respiratory Rate 16 01/02/2022 11:23 AM CDT Oxygen Saturation 99% 01/02/2022 11:23 AM CDT Inhaled Oxygen Concentration - - Weight 80.3 kg (177 lb) 01/02/2022 11:23 AM CDT Height 157.5 cm (5' 2 ) 01/02/2022 11:23 AM CDT Body Mass Index 32.37 01/02/2022 11:23 AM CDT documented in this encounter Patient Instructions * Patient Instructions* Nubia Brown PAC - 01/02/2022 11:15 AM CDT Labs today as ordered documented in this encounter Progress Notes * Ignacia Stanton RMA - 01/02/2022 11:15 AM CDT Josephine J Hill, 21 y.o., female is here for Anxiety Medication Refills: Patient reports/denies need for medication refills. Orders Pended: no Requested Prescriptions No prescriptions requested or ordered in this encounter Home Medications Medication Sig Start Date End Date Taking? Authorizing Provider clonazePAM (KlonoPIN) 0.5 MG Tablet Take 1 Tablet by mouth nightly as needed for Anxiety (sleep). 12/23/21 Nubia Brown PAC fluticasone (FLONASE) 50 MCG/ACT Suspension 2 Sprays by Nasal route daily. Use in each nostril as directed. 07/02/21 Nubia Brown PAC hydrOXYzine (ATARAX) 50 MG Tablet TAKE 1-2 TABLETS BY MOUTH AT BEDTIME NEEDED FOR SLEEP 10/23/21 Nubia Brown PAC venlafaxine (EFFEXOR-XR) 75 MG CAPSULE SR 24 HR Take 1 Capsule by mouth daily. 12/05/21 Nubia Brown PAC There are no discontinued medications. I have reviewed the home medication list with the patient and have reconciled discrepancies. The list is accurate to the best of my knowledge. Smoking Status: Social History Tobacco Use ??? Smoking status: Current Every Day Smoker ??? Smokeless tobacco: Never Used Vaping Use ??? Vaping Use: Never used Substance Use Topics ??? Alcohol use: Yes Comment: Social; occasional ??? Drug use: Yes Frequency: 7.0 times per week Types: Marijuana Comment: helps PTSD Smoking Cessation Counseling Given: yes Health Care Maintenance: Health Maintenance Due Topic Date Due ??? Pneumococcal Immunization (0-64 years) (1 - PCV) Never done ??? Meningococcal B Immunization (1 of 2 - Risk Bexsero 2-dose series) Never done ??? Human Papillomavirus (HPV) Immunization (1 - 2-dose series) Never done ??? Pap Smear Never done ??? SARS-COV-2 Immunization (2 - Pfizer series) 12/18/2020 ??? DTaP/Tdap/Td Immunization (1 - Tdap) 02/11/2021 Orders Pended: no The following BPA's have been addressed with the patient today: Depression functional pap * Nubia Brown, PAC - 01/02/2022 11:15 AM CDT Subjective: Patient in the office today for follow up on anxiety/depression medications Denies SE with effexor Has to take klonopin for sleep Has history of anxiety/depression Denies suicidal plan or self harm Lives with boyfriend Not working not going to school Review of Systems Constitutional: Positive for fatigue. Negative for fever. Weight gain Respiratory: Negative for cough and shortness of breath. Genitourinary: Negative for difficulty urinating and dysuria. Psychiatric/Behavioral: Positive for decreased concentration and sleep disturbance. Negative for hallucinations. The patient is nervous/anxious. Objective: Physical Exam [...] Breath sounds: Normal breath sounds. No wheezing. Skin: General: Skin is warm. Neurological: Mental Status: She is alert. Psychiatric: Mood and Affect: Mood normal. .PHQ-2 Have You [place] Little Interest or Pleasure in Doing Things?: 3 - Nearly every day Have You [place] Down, Depressed or Hopeless?: 2 - More than half the days Initial Score - If the score is 2 or higher, please proceed with the additional evaluation.: 5 PHQ-9 3. Trouble falling asleep or staying asleep or sleeping too much?: 3 - Nearly every day 4. Feeling tired or having little energy?: 3 - Nearly every day 5. Poor appetite or overeating?: 3 - Nearly every day 6. Feeling bad about yourself or that you are a failure or have let yourself or your family down?: 3 - Nearly every day 7. Trouble concentrating on things, such as reading the newspaper or watching television?: 2 - Morethan half the days 8. Moving or speaking so slowly that other people could have noticed. Or the opposite - being so fidgety or restless that you have been moving around a lot more than usual?: 3 - Nearly every day 9. Thoughts that you would be better off or of hurting yourself in some way?: 1 - Several days 10. If you checked off any problems, how difficult have these problems made it for you to do your work, take care of things at home or get along with other people?: Extremely difficult Total Score - Questions 1-9: 23 KRISTINE score 21 Assessment and Plan See Diagnoses, Orders, Follow-up, and Instructions .Diagnoses and all orders for this visit: Anxiety and depression - BEHAVIORAL HEALTH NAVIGATOR REFERRAL; Future - EXTERNAL PSYCHIATRY REFERRAL; Future - QUEtiapine (SEROquel) 25 MG Tablet; Take 1-2 tablets by oral route nightly - venlafaxine (EFFEXOR-XR) 150 MG CAPSULE SR 24 HR; Take 1 Capsule by mouth daily. - COMPLETE BLOOD COUNT (CBC) WITH DIFF; Future - CMP (COMPREHENSIVE METABOLIC PANEL); Future - THYROID STIMULATING HORMONE (TSH); Future Insomnia, unspecified type Elevated MCV - VITAMIN B12; Future BMI 32.0-32.9,adult - VITAMIN D, 25 HYDROXY TOTAL; Future Labs as ordered Will increase effexor to 150 mg daily Add seroquel for anxiety/depression Possibly help with sleep Recommend see psychiatrist and counselor in future, referrals made Recommend exercise and dietary changes If any suicidal thoughts with plan go to ER rtc in 4 weeks documented in this encounter Plan of Treatment Scheduled Referrals Name Type Priority Associated Diagnoses Order Schedule BEHAVIORAL HEALTH NAVIGATOR REFERRAL Outpatient Referral Routine Anxiety and depression Expected: 01/02/2022, Expires: 01/02/2023 EXTERNAL PSYCHIATRY REFERRAL Outpatient Referral Routine Anxiety and depression Expected: 04/03/2022, Expires: 01/02/2023 documented as of this encounter Goals Goal Patient Goal Type Associated Problems Recent Progress Patient-Stated? Author Behavioral Health Behavioral Health Yes Traci Romero, WASHER ASSEMBLER Note: I just need to be able to handle this and talk to someone. will gain insight regarding impact of trauma and gain relief from traumatic stress. Goal Reviewed with: patient Readiness to change: Ready to change Department associated with goal: [facility] Steps to achieve goal: will share personal trauma story in counseling/psychotherapy sessions. will learn/identify how trauma has impacted personal life, physical health and behavioral health. will identify and practice, at least two, skills/activities/routines, to gain relief from the impact of trauma. Behavioral Health Behavioral Health Traci Howe, WASHER ASSEMBLER Note: Carlene will report a decrease in symptoms of depression to have reduction of depression symptoms. Goal Reviewed with: patient Readiness to change: Ready to change Department associated with goal: [facility] Steps to achieve goal: [...] * (ABNORMAL) VITAMIN D, 25 HYDROXY TOTAL (01/02/2022 12:31 PM CDT) VITAMIN D, 25 HYDROX 8(L) >=30 ng/mL 01/02/2022 1:50 PM CDT [facility] Blood Venipuncture / Unknown 01/02/2022 12:31 PM CDT 01/02/2022 12:44 PM CDT Narrative [facility] - 01/02/2022 1:50 PM CDT Published reference ranges for Vitamin D vary depending on time and place and method of testing, and on patient's age, sex, ethnicity and levels of other measured analytes such as parathormone, calcium and phosphorus. ??The result should be evaluated in conjunction with clinical findings and suspicions. [place] [employer] and Endocrine Clinical Practice Guidelines: Status Vitamin D levels (ng/mL) Deficient <=20 At risk of inadequacy 21-29 Sufficient 30-100 Centers of Disease Control and Prevention Guidelines: Status Vitamin D levels (ng/mL) Deficient <13 At risk of inadequacy 13-19 Sufficient 20-50 Possibly harmful >50 References: [place] [employer], 2010 Dietary reference intakes for calcium and vitamin D. [place]: ??The National Academies Press. Kinza M, Michelle N, Ralph FENTON, et al., Evaluation, treatment, and prevention of Vitamin D deficiency: an Endocrinology Clinical Practice Guideline. JCEM 2011 96: 7 1322-9573. Luis Manuel Pedro, Vahe Khalil, Dajuna Yots, et al., Vitamin D Status: ??[facility], 2000- 6, [facility] data brief, no. 59, MD [place]: ??Formerly [facility] for Health Statistics. 2011. Nubia Brown PAC CHEMISTRY ORDERABLES Fin al Result Performing Organization Address City/[facility] Co de Phone Number [facility] [address] [place] [address] * VITAMIN B12 (01/02/2022 12:31 PM CDT) VITAMIN B12 603 243 - 894 pg/mL 01/02/2022 1:[address] [facility] Blood Venipuncture / Unknown 01/02/2022 12:31 PM CDT 01/02/2022 12:44 PM CDT Nubia Brown PAC CHEMISTRY ORDERABLES Fin al Result Performing Organization Address [facility] Co de Phone Number [facility] [address] [place] [address] * THYROID STIMULATING HORMONE (TSH) (01/02/2022 12:31 PM CDT) TSH 1.320 0.270 - 4.200 mIU/L 01/02/2022 1:[address] [facility] Blood Venipuncture / Unknown 01/02/2022 12:31 PM CDT 01/02/2022 12:45 PM CDT Nubia Brown PAC CHEMISTRY ORDERABLES Fin al Result Performing Organization Address City/[facility]/ZIP Co de Phone Number [facility] [address] [place] [address] * (ABNORMAL) CMP (COMPREHENSIVE METABOLIC PANEL) (01/02/2022 12:31 PM CDT) SODIUM 138 136 - 144 mmol/L 01/02/2022 1:47 PM CDT [facility] POTASSIUM 3.9 3.5 - 5.1 mmol/L 01/02/2022 1:47 PM CDT [facility] CHLORIDE 101 100 - 110 mmol/L 01/02/2022 1:47 PM CDT [facility] CO2, VENOUS 21(L) 22 - 32 mmol/L 01/02/2022 1:47 PM CDT [facility] ANION GAP 19.9 8.0 - 20.0 mmol/L 01/02/2022 1:47 PM CDT [facility] GLUCOSE 87 70 - 99 mg/dL 01/02/2022 1:47 PM CDT [facility] BUN 14 6 - 20 mg/dL 01/02/2022 1:47 PM CDT [facility] CREATININE, BLOOD 0.67 0.60 - 1.10 mg/dL 01/02/2022 1:47 PM CDT [facility] BUN/CREATININE RATIO 21(H) 12 - 20 ratio 01/02/2022 1:47 PM CDT [facility] TOTAL PROTEIN 7.4 6.0 - 8.3 g/dL 01/02/2022 1:47 PM CDT [facility] ALBUMIN 4.9 3.5 - 5.2 g/dL 01/02/2022 1:47 PM CDT [facility] Comment: The colormetric methods used for the determination of Albumin may lead to falsely elevated test results in patients suffering from renal failure or insufficiency due to interference with other proteins. A/G RATIO 2.0 1.0 - 2.0 01/02/2022 1:47 PM CDT [facility] CALCIUM 9.2 8.9 - 10.3 mg/dL 01/02/2022 1:[address] [facility] T BILI 0.6 <=1.2 mg/dL 01/02/2022 1:[address] [facility] SGOT (AST) 18 <=32 U/L 01/02/2022 1:[address] [facility] SGPT (ALT) 7 <=41 U/L 01/02/2022 1:[address] [facility] ALKALINE PHOSPHATASE 60 35 - 105 U/L 01/02/2022 1:[address] [facility] GFR, EST. NONAFRICAN >60 >=60 01/02/2022 1:[address] [facility] GFR, EST. >60 >=60 022 1:[address] [facility] Comment: Creatinine Clearance is the preferred criteria for selecting drug dose adjustments in renally impaired patients. ??The GFR is provided as additional pertinent clinical information. GFR is reported in mL/min/1.73 sq m. IS THE PATIENT REQUIRED TO BE FASTING? No 01/02/2022 1:[address] [facility] Blood Venipuncture / Unknown 01/02/2022 12:31 PM CDT 01/02/2022 12:45 PM CDT us Nubia Brown PAC CHEMISTRY ORDERABLES Fin al Result [facility] [address] [place] [address] documented in this encounter Visit Diagnoses Diagnosis Anxiety and depression- Primary Dysthymic disorder Insomnia, unspecified type Elevated MCV Other abnormality of red blood cells BMI 32.0-32.9,adult Body Mass Index 32.0-32.9, adult documented in this encounter Additional Health Concerns Assessment Noted Time PHQ-9 Depression Total Score: 23 022 11:00 AM CDT documented as of this encounter Care Teams Carpenter Labor Supervisor Relationship Specialty Start Date End Date Nubia Brown, PAC [address] [place] [address] PCP - General Physician Paintless Dent Repair Technician 08/13/20 03/01/23 documented as of this encounter
--- OUTSIDE RECORDS SUMMARY | 2024-08-30 03:02 | XMS_ITS | Encounter Summary ---
Author Organization [facility] Address [address] [place] [address] Phone Care Team Providers Care Loss Control Manager Name Role Phone Nubia Brown Primary Care Provider + Reason for Referral * Consult, Test & Initiate Treatment (Less Than 1 Week) - Closed Specialty Diagnoses / Procedures Referred By Kaleigh belle Referred To Contact Gastroenterology Diagnoses Nausea and vomiting, unspecified vomiting type Esophagitis Nubia Brown PAC [address] [place] [address] Phone: tel: fax: [facility] - Gastroenterology [facility] [address] [place] [address] Phone: tel: fax: Referral ID Status Reason Start Date Expiration Date Visits Re quested Visits Authorized [id number] Closed 02/18/2022 1 1 Scheduling Instructions Josephine is being referred for n/v, esophagitis. Please contact patient for scheduling questions or concerns. Reason for Visit * Reason Comments Follow-up 4 week follow up Encounter Details Date Type Department Care Team ([facility] Contact Info) Description 02/18/2022 4:15 PM CDT Office Visit [facility] - [facility] [address] [facility] [place] [address] Nubia Brown, LISA [address] [place] [address] Nausea and vomiting, unspecified vomiting type (Primary Dx); Esophagitis; Depression, unspecified depression type; Abdominal pain, unspecified abdominal location; Urinary frequency; Insomnia, unspecified type Discharge Disposition: Discharged to home or Selfcare Social History Tobacco Use Types Packs/Day Years Used Date Smoking Tobacco: Every Day Smokeless Tobacco: Never Tobacco Cessation:Ready to Q uit: No; Counseling Given: No Alcohol Use Standard Drinks/Week Comments Yes 0 [...] 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 No / Unsure 03/06/2022 12:08 PM CDT documented as of this encounter Last Filed Vital Signs Vital Sign Reading Time Taken Comments Blood Pressure 122/88 02/18/2022 4:27 PM CDT Pulse 82 02/18/2022 4:27 PM CDT Temperature 36.3 ??C (97.3 ??F) 02/18/2022 4:27 PM CD T Respiratory Rate 18 02/18/2022 4:27 PM CDT Oxygen Saturation 99% 02/18/2022 4:27 PM CDT Inhaled Oxygen Concentration - - Weight 86.3 kg (190 lb 4.8 oz) 02/18/2022 4:27 P M CDT Height 157.5 cm (5' 2 ) 02/18/2022 4:27 PM CDT Body Mass Index 34.81 02/18/2022 4:27 PM CDT documented in this encounter Progress Notes * Keely Weems - 02/18/2022 4:15 PM CDT Josephine Alejandre, 21 y.o., female is here for Follow-up (4 week follow up) Medication Refills: Patient reports/denies need for medication refills. Orders Pended: no Requested Prescriptions No prescriptions requested or ordered in this encounter Home Medications Medication Sig Start Date End Date Taking? Authorizing Provider clonazePAM (KlonoPIN) 0.5 MG Tablet Take 1 Tablet by mouth nightly as needed for Anxiety (sleep). 12/23/21 Yes Nubia Brown PAC ergocalciferol (VITAMIN D) 18151 UNIT Capsule Take 1 Capsule by mouth once a week for 12 doses. 01/02/22 03/21/22 Yes Nubia Brown PAC fluticasone (FLONASE) 50 MCG/ACT Suspension 2 Sprays by Nasal route daily. Use in each nostril as directed. 07/02/21 Yes Nubia Brown PAC pantoprazole (PROTONIX) 40 MG Pack 40 mg by Per NG tube route daily. Yes Provider, MD Tino QUEtiapine (SEROquel) 25 MG Tablet Take 1-2 tablets by oral route nightly 01/02/22 Yes Nubia Brown PAC venlafaxine (EFFEXOR-XR) 150 MG CAPSULE SR 24 HR Take 1 Capsule by mouth daily. 01/02/22 Yes Nubia Brown PAC There are no discontinued [...] patient today: No BPA's at this time * Nubia Brown PAC - 02/18/2022 4:15 PM CDT Subjective: 02/07/22 went to ER due to vomiting and abdominal pain, has vomited blood Has not appetite Was given protonix, Last episode of vomiting this am 7 am-9:30 am Will have pain and then feels needs to vomit Has trouble sleeping takes klonopin for sleep and anxiety Denies any SE from medication Reviewed ER CT scan results Review of Systems Constitutional: Negative for chills and fever. Respiratory: Negative for cough. Gastrointestinal: Positive for abdominal pain, constipation, diarrhea, nausea and vomiting. Genitourinary: Positive for frequency. Negative for dysuria. Objective: Physical Exam Vitals reviewed. Constitutional: Appearance: Normal appearance. She is not ill-appearing. HENT: Head: Normocephalic and atraumatic. Cardiovascular: Rate and Rhythm: Normal rate and regular rhythm. Heart sounds: No murmur heard. Pulmonary: Effort: Pulmonary effort is normal. No respiratory distress. Breath sounds: Normal breath sounds. No wheezing. Abdominal: General: Bowel sounds are normal. There is no distension. Palpations: Abdomen is soft. Comments: Tender to palpation upper abdomen Skin: General: Skin is warm. Neurological: Mental Status: She is alert. Assessment and Plan See Diagnoses, Orders, Follow-up, and Instructions .Diagnoses and all orders for this visit: Nausea and vomiting, unspecified vomiting type - GASTROENTEROLOGY REFERRAL; Future - Discontinue: ondansetron (Zofran) 4 MG Tablet; Take 1 Tablet by mouth every 8 hours as needed for Nausea - 1st line. (Patient not taking: Reported on 03/04/2022) Esophagitis - GASTROENTEROLOGY REFERRAL; Future Depression, unspecified depression type Abdominal pain, unspecified abdominal location - CMP (COMPREHENSIVE METABOLIC PANEL); Future - COMPLETE BLOOD COUNT (CBC) WITH DIFF; Future - LIPASE; Future - AMYLASE; Future Urinary frequency - URINALYSIS REFLEX IF INDICATED BY ABNORMAL RESULTS; Future Insomnia, unspecified type - Discontinue: clonazePAM (KlonoPIN) 0.5 MG Tablet; Take 1 Tablet by mouth nightly as needed for Anxiety (sleep). Other orders - Discontinue: pantoprazole (PROTONIX) 40 MG Pack; 40 mg by Per NG tube route daily. - Discontinue: sucralfate (CARAFATE) 1 GM Tablet; Take 1 Tablet by mouth 4 times daily. Take 1 hourprior to meals 3 times daily and at bedtime Reviewed imaging from ER, esophagitis on CT scan Start protonix and carafate, referred to GI Labs rule out infection or liver enzyme abnormality Will follow up when resulted. rtc in 2 weeks for recheck Continue with klonopin for sleep Continue with effexor documented in this encounter Plan of Treatment Scheduled Referrals Name Type Priority Associated Diagnoses Order Schedule GASTROENTEROLOGY REFERRAL Outpatient Referral Less Than 1 week Nausea And Vomiting, Unspecified Vomiting Type Esophagitis Expected: 02/18/2022, Expires: 02/18/2023 documented as of this encounter Goals Goal Patient Goal Type Associated Problems Recent Progress Patient-Stated? Author Behavioral Health Behavioral Health Yes Traci Romero, ASSOCIATE PROFESSOR OF THEOLOGY Note: I just need to be able to handle this and talk to someone. will gain insight regarding impact of trauma and gain relief from traumatic stress. Goal Reviewed with: patient Readiness to change: Ready to change Department associated with goal: [facility] Steps to achieve goal: will share personal trauma story in counseling/psychotherapy sessions. will learn/identify how trauma has impacted personal life, physical health and behavioral health. will identify and practice, at least two, skills/activities/routines, to gain relief from the impact of trauma. Behavioral Health Behavioral Health No Varble, Traci A, ASSOCIATE PROFESSOR OF THEOLOGY Note: Carlene will report a decrease in symptoms of depression to have reduction of depression symptoms. Goal Reviewed with: patient Readiness to change: Ready to change Department associated with goal: [facility] Steps to achieve [...] as of this encounter Results * (ABNORMAL) URINALYSIS REFLEX IF INDICATED BY ABNORMAL RESULTS (02/19/2022 3:24 PM CDT) SPECIFIC GRAVITY 1.015 1.003 - 1.030 02/19/2022 3:50 PM CDT [facility] URINE PH 8.0 5.0 - 9.0 02/19/2022 3:50 PM CDT [facility] WBC ESTERASE Negative Negative 02/19/2022 3:50 PM CDT [facility] NITRITE Negative Negative 02/19/2022 3:50 PM CDT [facility] PROTEIN, RANDOM URINE 15 mg/dL(A) Negative 02/19/2022 3:50 PM CDT [facility] URINE GLUCOSE, QUAL Negative Negative 02/19/2022 3:50 PM CDT [facility] URINE KETONES Negative Negative 02/19/2022 3:50 PM CDT [facility] UROBILINOGEN Normal Normal mg/dL 02/19/2022 3:50 PM CDT [facility] URINE BLOOD Negative Negative ag/ul 02/19/2022 3:50 PM CDT [facility] URINALYSIS COLOR Light yellow 2021 3:50 PM CDT [facility] URINALYSIS CLARITY Clear 02/19/2022 3:50 PM CDT [facility] Urine URINE SPECIMEN COLLECTION, CLEAN CATCH / Unknown Non-Phlebotomy Collection / Unknown 02/19/2022 3:24 PM CDT 02/19/2022 3:28 PM CDT Nubia Brown PAC URINE ORDERABLES Final R esult Performing Organization Address [facility] Co de Phone Number [facility] [address] [place] [address] * (ABNORMAL) AMYLASE (02/19/2022 3:19 PM CDT) AMYLASE 128(H) 28 - 100 U/L 02/19/2022 4:01 PM CDT [facility] Blood Venipuncture / Unknown 02/19/2022 3:19 PM CDT 02/19/2022 3:30 PM CDT Nubia Brown PAC CHEMISTRY ORDERABLES Fin al Result Performing Organization Address [facility] Co de Phone Number [facility] [address] [place] [address] * LIPASE (02/19/2022 3:19 PM CDT) LIPASE 19.1 13 - 60 U/L 02/19/2022 4:01 PM CDT [facility] Blood Venipuncture / Unknown 02/19/2022 3:19 PM CDT 02/19/2022 3:30 PM CDT Nubia Burtoner PAC CHEMISTRY ORDERABLES Fin al Result Performing Organization Address City/[facility] Co de Phone Number [facility] [address] [place] [address] * (ABNORMAL) CMP (COMPREHENSIVE METABOLIC PANEL) (02/19/2022 3:19 PM CDT) SODIUM 133(L) 136 - 144 mmol/L 02/19/2022 4:01 PM [facility] POTASSIUM 3.8 3.5 - 5.1 mmol/L 02/19/2022 4:01 PM [facility] CHLORIDE 100 100 - 110 mmol/L 02/19/2022 4:01 PM [facility] CO2, VENOUS 25 22 - 32 mmol/L 02/19/2022 4:01 PM [facility] ANION GAP 11.8 8.0 - 20.0 mmol/L 02/19/2022 4:01 PM [facility] GLUCOSE 83 70 - 99 mg/dL 02/19/2022 4:01 PM [facility] BUN 11 6 - 20 mg/dL 02/19/2022 4:01 PM [facility] CREATININE, BLOOD 0.71 0.60 - 1.10 mg/dL 02/19/2022 4:01 PM [facility] BUN/CREATININE RATIO 15 12 - 20 ratio 02/19/2022 4:01 PM [facility] TOTAL PROTEIN 7.1 6.0 - 8.3 g/dL 02/19/2022 4:01 PM [facility] ALBUMIN 4.7 3.5 - 5.2 g/dL 02/19/2022 4:01 PM [facility] Comment: The colormetric methods used for the determination of Albumin may lead to falsely elevated test results in patients suffering from renal failure or insufficiency due to interference with other proteins. A/G RATIO 2.0 1.0 - 2.0 02/19/2022 4:01 PM [facility] CALCIUM 9.3 8.9 - 10.3 mg/dL 02/19/2022 4:01 PM [facility] T BILI 0.3 <=1.2 mg/dL 02/19/2022 4:01 PM [facility] SGOT (AST) 18 <=32 U/L 02/19/2022 4:01 PM CDT [facility] SGPT (ALT) 11 <=41 U/L 02/19/2022 4:01 PM CDT [facility] ALKALINE PHOSPHATASE 62 35 - 105 U/L 02/19/2022 4:01 PM CDT [facility] GFR, EST. NONAFRICAN >60 >=60 02/19/2022 4:01 PM CDT [facility] GFR, EST. >60 >=60 022 4:01 PM CDT [facility] Comment: Creatinine Clearance is the preferred criteria for selecting drug dose adjustments in renally impaired patients. ??The GFR is provided as additional pertinent clinical information. GFR is reported in mL/min/1.73 sq m. IS THE PATIENT REQUIRED TO BE FASTING? No 02/19/2022 4:01 PM CDT [facility] Blood Venipuncture / Unknown 02/19/2022 3:19 PM CDT 02/19/2022 3:30 PM CDT us Nubia Brown PAC CHEMISTRY ORDERABLES Fin al Result [facility] [address] [place] [address] documented in this encounter Visit Diagnoses Diagnosis Nausea and vomiting, unspecified vomiting type- Primary Esophagitis Esophagitis, unspecified Depression, unspecified depression type Abdominal pain, unspecified abdominal location Urinary frequency Insomnia, unspecified type documented in this encounter Additional Health Concerns Assessment Noted Time PHQ-9 Depression Total Score: 23 022 11:00 AM CDT documented as of this encounter Care Teams Loss Control Manager Relationship Specialty Start Date End Date Nubia Brown PAC [address] [place] [address] PCP - General Physician Flame Brazing Machine Operator 08/13/20 03/01/23 documented as of this encounter
--- OUTSIDE RECORDS SUMMARY | 2024-08-30 03:02 | XMS_ITS | Encounter Summary ---
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 Behavioral Health Behavioral Health Traci Howe, AUTOMOTIVE PARTS CLERK Note: Carlene will report a decrease in [...] documented as of this encounter Care Teams Speech Therapist Relationship Specialty Start Date End Date Nubia Brown PAC [address] [place] [address] PCP - General Physician Chip Crusher Operator 08/13/20 03/01/23 documented as of this encounter
--- OUTSIDE RECORDS SUMMARY | 2024-08-30 03:02 | XMS_ITS | Encounter Summary ---
Author Organization [facility] Address [address] 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 No / Unsure 03/14/2022 2:14 PM CDT documented as of this encounter Miscellaneous Notes * Telephone Encounter - Justyna Reyes RMA - 03/17/2022 12:59 PM CDT Colonoscopy prep instructions documented in this encounter Plan of Treatment [...] documented as of this encounter Care Teams Crabbing Machine Operator Relationship Specialty Start Date End Date Nubia Brown, LISA [address] [place] [address] PCP - General Physician Dehydrogenation Operator Head 08/13/20 03/01/23 documented as of this encounter
--- OUTSIDE RECORDS SUMMARY | 2024-08-30 03:02 | XMS_ITS | Encounter Summary ---
Author Organization [facility] Address [address] [place] [address] Phone Care Team Providers Care Distance Learning Unit Leader Name Role Phone Nubia Brown Primary Care Provider + Reason for Referral * Radiology Services (Routine) - Closed Specialty Diagnoses / Procedures Referred By Kaleigh t Referred To Contact Radiology Diagnoses Upper abdominal pain Procedures US ABDOMEN LIMITED LEVEL 3 THREE ORGAN Nubia Brown PAC [address] [place] [address] Phone: tel: fax: Referral ID Status Reason Start Date Expiration Date Visits Re quested Visits Authorized [id number] Closed 03/04/2022 1 1 Reason for Visit * Reason Comments Follow-up 2 week follow up Encounter Details Date Type Department Care Team (Late st Contact Info) Description 03/04/2022 1:15 PM CDT Office Visit [facility] - [facility] [address] [place] [address] Nubia Brown PAC [address] [place] [address] Nausea and vomiting, unspecified vomiting type (Primary Dx); Upper abdominal pain; High risk medication use Discharge Disposition: Discharged to home or Selfcare [...] 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 No / Unsure 03/04/2022 1:10 PM CDT documented as of this encounter Last Filed Vital Signs Vital Sign Reading Time Taken Comments Blood Pressure 142/96 03/04/2022 1:13 PM CDT Pulse 82 03/04/2022 1:13 PM CDT Temperature 36.4 ??C (97.6 ??F) 03/04/2022 1:13 PM CD T Respiratory Rate 18 03/04/2022 1:13 PM CDT Oxygen Saturation 98% 03/04/2022 1:13 PM CDT Inhaled Oxygen Concentration - - Weight 86 kg (189 lb 9.6 oz) 03/04/2022 1:13 PM CDT Height 157.5 cm (5' 2 ) 03/04/2022 1:13 PM CDT Body Mass Index 34.68 03/04/2022 1:13 PM CDT documented in this encounter Progress Notes * Keely Weems - 03/04/2022 1:15 PM CDT Josephine Alejandre, 22 y.o., female is here for Follow-up (2 week follow up) Medication Refills: Patient reports/denies need for medication refills. Orders Pended: no Requested Prescriptions No prescriptions requested or ordered in this encounter Home Medications Medication Sig Start Date End Date Taking? Authorizing Provider clonazePAM (KlonoPIN) 0.5 MG Tablet Take 1 Tablet by mouth nightly as needed for Anxiety (sleep). 02/18/22 Yes Nubia Brown PAC ergocalciferol (VITAMIN D) 02234 UNIT Capsule Take 1 Capsule by mouth once a week for 12 doses. 01/02/22 03/21/22 Yes Nubia Brown PAC fluticasone (FLONASE) 50 MCG/ACT Suspension 2 Sprays by Nasal route daily. Use in each nostril as directed. 02/20/22 Nubia Brown PAC HYDROcodone-acetaminophen (NORCO) 5-325 MG Tablet Take 1 Tablet by mouth every 8 hours as needed for Moderate or more severe pain. 02/27/22 Nubia Brown PAC ondansetron (Zofran) 4 MG Tablet Take 1 Tablet by mouth every 8 hours as needed for Nausea - 1st line. Patient not taking: Reported on 03/04/2022 02/18/22 Nubia Brown PAC pantoprazole (PROTONIX) 40 MG Pack 40 mg by Per NG tube route daily. Yes Provider, MD Tino sucralfate (CARAFATE) 1 GM Tablet Take 1 Tablet by mouth 4 times daily. Take 1 hour prior to meals 3 times daily and at bedtime 02/18/22 Yes Nubia Brown PAC venlafaxine (EFFEXOR-XR) 150 [...] this time * Nubia Brown PAC - 03/04/2022 1:15 PM CDT Subjective: Patient in office today for follow up on abdominal pain Having vomiting frequently, last episode this am Has chronic nausea LMP: 02/06/22 Has taken hydrocodone for pain with minimal relief, little fatigue with medication Last dose 2 days ago Taking klonopin for sleep as needed, sometimes takes 2 pills nightly, will take in am if anxious, has run out of medication few days ago Having right upper quadrant pain Bowels alternate between constipation and diarrhea, last bowel movement last night Review of Systems Constitutional: Positive for fatigue. Negative for fever and unexpected weight change. Respiratory: Negative for cough. Gastrointestinal: Positive for abdominal pain, nausea and vomiting. Negative for blood in stool. Objective: Physical Exam Vitals reviewed. Constitutional: Appearance: [...] Normal breath sounds. No wheezing. Abdominal: General: There is no distension. Palpations: Abdomen is soft. Comments: RUQ epigastric tenderness Skin: General: Skin is warm. Neurological: Mental Status: She is alert. Psychiatric: Mood and Affect: Mood normal. . Lab Results Component Value Date SODIUM 133 (L) 02/19/2022 POTASSIUM 3.8 02/19/2022 CHLORIDE 100 02/19/2022 CO2VEN 25 02/19/2022 ANIONGAP 11.8 02/19/2022 GLUCOSE 83 02/19/2022 BUN 11 02/19/2022 CREATININE 0.71 02/19/2022 BCRATIO8 15 02/19/2022 TOTALPROTEIN 7.1 02/19/2022 ALBUMIN 4.7 02/19/2022 CALCIUM 9.3 02/19/2022 TBIL 0.3 02/19/2022 SGOTAST 18 02/19/2022 SGPTALT 11 02/19/2022 ALKALINEPHO 62 02/19/2022 GFRNA >60 02/19/2022 GFRA >60 02/19/2022 . Lab Results Component Value Date WBC 9.08 02/19/2022 HEMOGLOBIN 12.3 02/19/2022 HEMATOCRIT 38.2 02/19/2022 PLATELETCNT 325 02/19/2022 MCV 101.9 (H) 02/19/2022 . Results for orders placed or performed in visit on 02/19/22 URINALYSIS REFLEX IF INDICATED BY ABNORMAL RESULTS Result Value Ref Range Status SPECIFIC GRAVITY 1.015 1.003 - 1.030 Final URINE PH 8.0 5.0 - 9.0 Final WBC ESTERASE Negative Negative Final NITRITE Negative Negative Final PROTEIN, RANDOM URINE 15 mg/dL (A) Negative Final URINE GLUCOSE, QUAL Negative Negative Final URINE KETONES Negative Negative Final UROBILINOGEN Normal Normal mg/dL Final URINE BLOOD Negative Negative ag/ul Final URINALYSIS COLOR Light yellow Final URINALYSIS CLARITY Clear Final . Lab Results Component Value Date LIPASE 19.1 02/19/2022 Assessment and Plan See Diagnoses, Orders, Follow-up, and Instructions .Diagnoses and all orders for this visit: Nausea and vomiting, unspecified vomiting type Upper abdominal pain - US ABDOMEN LIMITED LEVEL 3 THREE ORGAN; Future High risk medication use - URINE DRUG SCREEN; Future Other orders - pantoprazole (PROTONIX) 40 MG Pack; Take 40 mg by mouth 2 times daily. Ultrasound gallbladder rule out gallstones Refilled zofran increased dose to 8 mg for nausea For anxiety can continue with klonopin, high risk med use, signed controlled substance contract, klonopin refilled, Continue protonix 40 mg bid for esophagitis seen on CT abdomen Follow up with GI documented in this encounter Plan of Treatment Scheduled Orders Name Type Priority Associated Diagnoses Orde r Schedule US ABDOMEN LIMITED LEVEL 3 THREE ORGAN Imaging Routine Upper abdominal pain Expected: 06/03/2022, Expires: 08/05/2022 documented as of this encounter Goals Goal [...] Ready to change Department associated with goal: [facility] Steps to [...] Ready to change Department associated with goal: [facility] Steps to [...] as of this encounter Results * (ABNORMAL) URINE DRUG SCREEN (03/14/2022 3:36 PM CDT) UR AMPHETAMINE NON DETECTED NON DETECTED 03/14/2022 4:16 PM CDT [facility] Comment: FOR MEDICAL USE ONLY. CUTOFF CONCENTRATION FOR DETECTED RESULT: AMPHETAMINE: ??500 NG/ML UR BENZODIAZEPINES NON DETECTED NON DETECTED 03/14/2022 4:16 PM CDT [facility] Comment: FOR MEDICAL USE ONLY. CUTOFF CONCENTRATION FOR DETECTED RESULT: BENZODIAZAPINE: ??100 NG/ML UR COCAINE METABOLITE NON DETECTED NON DETECTED 03/14/2022 4:16 PM CDT [facility] Comment: FOR MEDICAL USE ONLY. CUTOFF CONCENTRATION FOR DETECTED RESULT: COCAINE: ??300 NG/ML UR OPIATES NON DETECTED NON DETECTED 03/14/2022 4:16 PM CDT [facility] Comment: FOR MEDICAL USE ONLY. CUTOFF CONCENTRATION FOR DETECTED RESULT: OPIATES: ? 300 NG/ML UR PHENCYCLIDINE NON DETECTED NON DETECTED 03/14/2022 4:16 PM CDT [facility] Comment: FOR MEDICAL USE ONLY. CUTOFF CONCENTRATION FOR DETECTED RESULT: PCP: ? 25 NG/ML UR CANNABINOID DETECTED(A) NON DETECTED 03/14/2022 4:16 PM CDT [facility] Comment: FOR MEDICAL USE ONLY. CUTOFF CONCENTRATION FOR DETECTED RESULT: THC (MARIJUANA): 50 NG/ML UR TRICYCLIC ANTIDEPRESS SCREEN NON DETECTED NON DETECTED 03/14/2022 4:16 PM CDT [facility] Comment: FOR MEDICAL USE ONLY. CUTOFF CONCENTRATION FOR DETECTED RESULT: TCA: ??300 NG/ML UR BARBITURATE NON DETECTED NON DETECTED 03/14/2022 4:16 PM CDT [facility] Comment: FOR MEDICAL USE ONLY. CUTOFF CONCENTRATION FOR DETECTED RESULT: BARBITUATES: ? 200 NG/ML Urine Non-Phlebotomy Collection / Unknown 03/14/2022 3:36 PM CDT 03/14/2022 3:40 PM CDT us Nubia Brown PAC URINE ORDERABLES Final R esult [facility] [address] [place] [address] documented in this encounter Visit Diagnoses Diagnosis Nausea and vomiting, unspecified vomiting type- Primary Upper abdominal pain Abdominal pain, other specified site High risk medication use Encounter for long-term (current) use of other medications documented in this encounter Additional Health Concerns Assessment Noted Time PHQ-9 Depression Total Score: 23 022 11:00 AM CDT documented as of this encounter Care Teams Distance Learning Unit Leader Relationship Specialty Start Date End Date Nubia Brown [address] [place] [address] PCP - General Physician Cloth Beamer 08/13/20 03/01/23 documented as of this encounter
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
--- OUTSIDE RECORDS SUMMARY | 2024-08-30 03:02 | XMS_ITS | Encounter Summary ---
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 No / Unsure 03/17/2022 1:26 PM CDT documented as of this encounter Plan of Treatment Not on file documented as of this encounter Goals Goal Patient Goal Type Associated Problems Recent Progress Patient-Stated? Author Behavioral Health Behavioral Health Yes Traci Romero, CHARTING CLERK Note: I just need to be able to handle this and talk to someone. will gain insight regarding impact of trauma and gain relief from traumatic stress. Goal Reviewed with: patient Readiness to change: Ready to change Department associated with goal: [facility] Steps to achieve goal: will share personal trauma story in counseling/psychotherapy sessions. will learn/identify how trauma has impacted personal life, physical health and behavioral health. will identify and practice, at least two, skills/activities/routines, to gain relief from the impact of trauma. Behavioral Health Behavioral Health Traci Howe, CHARTING CLERK Note: Carlene will report a decrease in symptoms of depression to have reduction of depression symptoms. Goal Reviewed with: patient Readiness to change: Ready to change Department associated with goal: [facility] Steps to achieve goal: [...] documented as of this encounter Care Teams Crozer Operator Relationship Specialty Start Date End Date Nubia Brown PAC [address] [place] [address] PCP - General Physician Stock Holder 08/13/20 03/01/23 documented as of this encounter
--- OUTSIDE RECORDS SUMMARY | 2024-08-30 03:02 | XMS_ITS | Encounter Summary ---
Author Organization [facility] Address [address] 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 No / Unsure 12/26/2020 1:03 PM CDT documented as of this encounter Miscellaneous Notes * Telephone Encounter - Aisha Helm RN - 01/07/2021 4:50 PM CDT Return to work no restriction letter sent to patient my Chart as requested. * Telephone Encounter - Nubia Brown PAC - 01/07/2021 3:36 PM CDT Ok to send letter to [facility]. How is she feeling * Telephone Encounter - Clemencia Bruner RN - 01/07/2021 3:21 PM CDT Received call from the patient regarding return to work. She indicates, her employer would like a letter stating, patient can return to work with no restrictions. She request the letter be attached to a My Chart message, please. documented in this encounter Plan of Treatment Not on file documented as of this encounter Goals Goal Patient Goal Type Associated Problems Recent Progress Patient-Stated? Author Behavioral Health Behavioral Health Yes Traci Romero, AERIAL INSTALLER Note: I just need to be able to handle this and talk to someone. will gain insight regarding impact of trauma and gain relief from traumatic stress. Goal Reviewed with: patient Readiness to change: Ready to change Department associated with goal: [facility] Steps to achieve goal: will share personal trauma story in counseling/psychotherapy sessions. will learn/identify how trauma has impacted personal life, physical health and behavioral health. will identify and practice, at least two, skills/activities/routines, to gain relief from the impact of trauma. Behavioral Health Behavioral Health No Traci Romero, AERIAL INSTALLER Note: Carlene will report a decrease in symptoms of depression to have reduction of depression symptoms. Goal Reviewed with: patient Readiness to change: Ready to change Department associated with goal: [facility] Steps to [...] Total Score: 15 09/17/ 021 3:00 PM STUDENT OUTREACH COORDINATOR documented as of this encounter Care Teams Cornice Upholsterer Relationship Specialty Start Date End Date Nubia Brown PAC [address] [place] [address] PCP - General Physician Recruiting Assistant 08/13/20 03/01/23 documented as of this encounter
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
--- OUTSIDE RECORDS SUMMARY | 2024-08-30 03:02 | XMS_ITS | Encounter Summary ---
Author Organization [facility] Address [address] 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 No / Unsure 02/18/2022 3:55 PM CDT documented as of this encounter Miscellaneous Notes * Telephone Encounter - Peyton Kay RN - 2022 1:13 PM CDT Medication(s) refilled and signed per [facility] Chronic Medication Refill Standing Order for Pediatricand Adult Patients. Requested Prescriptions Pending Prescriptions Disp Refills ??? fluticasone (FLONASE) 50 MCG/ACT Suspension 18.2 mL 2 Si Sprays by Nasal route daily. Use in each nostril as directed. Nasal Steroids Protocol Passed - 02/19/2022 4:30 PM Passed - Visit with relevant provider in past 12 months or upcoming 90 days Recent Visits Date Type Provider Dept 02/18/22 Office Visit Nubia Brown PAC [facility] 01/02/22 Office Visit Nubia Brown PAC [facility] 12/05/21 Telemedicine Nubia Brown PAC [facility] 07/02/21 Office Visit Nubia Brown PAC [facility] Showing recent visits within past 365 days and meeting all other requirements Future Appointments Date Type Provider Dept 03/04/22 Appointment Nubia Brown PAC [facility] Showing future appointments within next 90 days and meeting all other requirements documented in this encounter Plan of Treatment Not on file documented as of this encounter Goals Goal Patient Goal Type Associated Problems Recent Progress Patient-Stated? Author Behavioral Health Behavioral Health Yes Traci Romero, SYSTEMS ARCHITECT Note: I just need to be able to handle this and talk to someone. will gain insight regarding impact of trauma and gain relief from traumatic stress. Goal Reviewed with: patient Readiness to change: Ready to change Department associated with goal: [facility] Steps to achieve goal: will share personal trauma story in counseling/psychotherapy sessions. will learn/identify how trauma has impacted personal life, physical health and behavioral health. will identify and practice, at least two, skills/activities/routines, to gain relief from the impact of trauma. Behavioral Health Behavioral Health No Traci Romero, SYSTEMS ARCHITECT Note: Carlene will report a decrease in symptoms of depression to have reduction of depression symptoms. Goal Reviewed with: patient Readiness to change: Ready to change Department associated with goal: [facility] Steps to achieve [...] documented as of this encounter Care Teams Aerial Tram Operator Relationship Specialty Start Date End Date Nubia Brown PAC [address] [place] [address] PCP - General Physician Radiation / Chemistry Technician 08/13/20 03/01/23 documented as of this encounter
--- OUTSIDE RECORDS SUMMARY | 2024-08-30 03:02 | XMS_ITS | Encounter Summary ---
Author Organization [facility] Address [address] [place] [address] Phone Care Team Providers Care Peg Driver Name Role Phone Nubia Brown PAC Primary Care Provider + Reason for Visit * Reason Comments Numbness Encounter Details Date Type Department Care Team (Late st Contact Info) Description 07/24/2021 4:18 PM MOTORS AND GENERATORS INSPECTOR - 07/24/2021 6:34 PM MOTORS AND GENERATORS INSPECTOR Emergency 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 No / Unsure 07/24/2021 4:15 PM MOTORS AND GENERATORS INSPECTOR documented as of this encounter Last Filed Vital Signs Vital Sign Reading Time Taken Comments Blood Pressure 126/55 07/24/2021 6:15 PM MOTORS AND GENERATORS INSPECTOR Pulse 82 07/24/2021 6:15 PM MOTORS AND GENERATORS INSPECTOR Temperature 36.2 ??C (97.2 ??F) 07/24/2021 4:15 PM CS T Respiratory Rate 22 07/24/2021 6:15 PM MOTORS AND GENERATORS INSPECTOR Oxygen Saturation 100% 07/24/2021 6:15 PM MOTORS AND GENERATORS INSPECTOR Inhaled Oxygen Concentration - - Weight 72.6 kg (160 lb) 07/24/2021 4:16 PM MOTORS AND GENERATORS INSPECTOR Height 157.5 cm (5' 2 ) 07/24/2021 4:16 PM MOTORS AND GENERATORS INSPECTOR Body Mass Index 29.26 07/24/2021 4:16 PM MOTORS AND GENERATORS INSPECTOR documented in this encounter Discharge Instructions * Discharge Instructions* Alexandra Lopez MD - 07/24/2021 5:59 PM MOTORS AND GENERATORS INSPECTOR Follow-up with your CAR RENTAL CLERK or the one listed above you will need to be on control to help with the heavy cycles and the pain that comes along with it, return if with worsening symptoms or concerns RS AND GENERATORS INSPECTOR * Attachments The following attachments cannot be sent through Care Everywhere. * Dysmenorrhea [id number] (Wallisian) documented in this encounter Medications at Time of Discharge fluticasone (FLONASE) 50 MCG/ACT Suspension 2 Sprays by Nasal route daily. Use in each nostril as directed. 18.2 mL 07/02/2021 2 hydrOXYzine (ATARAX) 50 MG TabletIndications :Insomnia, unspecified type TAKE 1-2 TABLETS BY ORAL ROUTE AT BEDTIME NEEDED FOR SLEEP 60 Tab 1 09/14/2020 2 ketorolac (TORADOL) 10 MG Tablet Take 1 Tablet by mouth every 6 hours as needed for Moderate or more severe pain for up to 5 days. 20 Tablet 07/24/2021 documented as of this encounter ED Notes * Cal Moran RN - 07/24/2021 6:30 PM CST Patient discharged. Discharge instructions and patient educational material reviewed with patient; questions and concerns addressed; patient verbalizes understanding, using teach back. Patient was given 1 prescriptions. Patient was informed of need to follow up with PCP for ongoing care or return for worsening symptoms. Patient discharged via stretcher with family as responsible constitution party. SL D/C'ed with Geovanny cath intact. Pt alert and oriented x 4 with respirations that are even and unlabored at TOD. RS AND GENERATORS INSPECTOR RS AND GENERATORS INSPECTOR * Cal Moran RN - 07/24/2021 5:56 PM CST Pt medicated per provider orders. Pt educated on intended effects and side effects of medication and verbalized understanding, able to provide teach back of education. RS AND GENERATORS INSPECTOR * Alexandra Lopez MD - 07/24/2021 4:38 PM CST Chief Complaint Patient presents with ??? Numbness Patient with hx of heavy menses and pain and numbness in her legs wit her menses, States with symptoms x one day, started this am. She further states her menses stated today as well. No fever no chills no back pain. Quit control one year ago Current Facility-Administered Medications Medication Dose Route Frequency Provider Last Rate Last Admin ??? ketorolac (TORADOL) injection 15 mg 15 mg Intravenous Once Alexandra Lopez MD Current Outpatient Medications Medication Sig Dispense Refill ??? fluticasone (FLONASE) 50 MCG/ACT Suspension 2 Sprays by Nasal route daily. Use in each nostril as directed. 18.2 mL 0 ??? hydrOXYzine (ATARAX) 50 MG Tablet TAKE 1-2 TABLETS BY ORAL ROUTE AT BEDTIME NEEDED FOR SLEEP60 Tab 1 Allergies Allergen Reactions ??? Topiramate Anxiety and [...] level: 12th grade Occupational History ??? 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 [...] risk not applicable to this patient. BP 140/84 Pulse 91 Temp 97.2 ??F (36.2 ??C) (Tympanic) Resp 20 Ht 5' 2 (1.575 m) Wt 160 lb (72.6 kg) LMP 07/23/2021 SpO2 100% BMI 29.26 kg/m?? Review of Systems Constitutional: Negative. Genitourinary: Positive for vaginal bleeding. Neurological: Positive for weakness. Negative for dizziness, facial asymmetry, light-headedness andheadaches. All other systems reviewed and are negative. Physical Exam Vitals and nursing note reviewed. Constitutional: Appearance: Normal appearance. HENT: Head: Normocephalic and atraumatic. Cardiovascular: Rate and Rhythm: Normal rate and regular rhythm. Pulmonary: Effort: Pulmonary effort is normal. Breath sounds: Normal breath sounds. Musculoskeletal: General: No swelling or tenderness. Normal range of motion. Skin: General: Skin is warm and dry. Neurological: Mental Status: She is alert. Procedures Imaging Results None Labs Reviewed COMPLETE BLOOD COUNT (CBC) WITH DIFF CMP (COMPREHENSIVE METABOLIC PANEL) URINALYSIS REFLEX IF INDICATED BY ABNORMAL RESULTS TYPE & SCREEN (CROSSMATCH CONVERTIBLE) POCT URINE HCG () MDM Number of Diagnoses or Management Options Amount and/or Complexity of Data Reviewed Clinical lab tests: ordered and reviewed Tests in the medicine section of CPT??: ordered and reviewed Coding Dysmenorrhea Speak with your job boss concerning BCP options to help with dysmenorrhea RS AND GENERATORS INSPECTOR * Clau Kurtz RN - 07/24/2021 4:16 PM CST Pt to triage via wheelchair with b/o bilateral leg numbness. States this has happened in the past when menstruating, but is worse this time. Reports difficulty walking. Denies any other complaints. RS AND GENERATORS INSPECTOR documented in this encounter Plan of Treatment Not on file documented as of this encounter Goals Goal Patient Goal Type Associated Problems Recent Progress Patient-Stated? Author Behavioral Health Behavioral Health Yes Traci Romero, TRAFFIC ANALYST Note: I just need to be able to handle this and talk to someone. will gain insight regarding impact of trauma and gain relief from traumatic stress. Goal Reviewed with: patient Readiness to change: Ready to change Department associated with goal: [facility] Steps to achieve goal: will share personal trauma story in counseling/psychotherapy sessions. will learn/identify how trauma has impacted personal life, physical health and behavioral health. will identify and practice, at least two, skills/activities/routines, to gain relief from the impact of trauma. Behavioral Health Behavioral Health No Traci Romero, TRAFFIC ANALYST Note: Carlene will report a decrease in symptoms of depression to have reduction of depression symptoms. Goal Reviewed with: patient Readiness to change: Ready to change Department associated with goal: [facility] Steps to achieve goal: [...] Procedure Name Priority Date/Time Associated Diagnosis Comments EXTRA TUBES STAT 07/24/2021 5:25 PM MOTORS AND GENERATORS INSPECTOR GOLD TOP TUBE STAT 07/24/2021 5:25 PM MOTORS AND GENERATORS INSPECTOR CBC WITH AUTO DIFFERENTIAL STAT 07/24/2021 5:25 PM MOTORS AND GENERATORS INSPECTOR TYPE & SCREEN (CROSSMATCH CONVERTIBLE) STAT 07/24/2021 5:25 PM MOTORS AND GENERATORS INSPECTOR CMP (COMPREHENSIVE METABOLIC PANEL) STAT 07/24/2021 5:25 PM MOTORS AND GENERATORS INSPECTOR COMPLETE BLOOD COUNT (CBC) WITH DIFF STAT 07/24/2021 5:25 PM MOTORS AND GENERATORS INSPECTOR URINALYSIS REFLEX IF INDICATED BY ABNORMAL RESULTS STAT 07/24/2021 5:05 PM MOTORS AND GENERATORS INSPECTOR documented in this encounter Results * Gold Top Tube (07/24/2021 5:25 PM MOTORS AND GENERATORS INSPECTOR) Blood No Phlebotomy Charged / Unknown 07/24/2021 5:25 PM MOTORS AND GENERATORS INSPECTOR 07/24/2021 5:44 PM MOTORS AND GENERATORS INSPECTOR us Alexandra Lopez MD CHEMISTRY ORDERABLES Final Re sult [facility] [address] [place] [address] * (ABNORMAL) CBC with Auto Differential (07/24/2021 5:25 PM MOTORS AND GENERATORS INSPECTOR) WBC 8.90 4.00 - 12.00 10(3)/mcL 07/24/2021 5:47 PM MOTORS AND GENERATORS INSPECTOR [facility] RBC 4.15 3.80 - 5.30 10(6)/mcL 07/24/2021 5:47 PM [facility] HEMOGLOBIN (HGB) 13.4 12.0 - 15.8 g/dL 07/24/2021 5:47 PM [facility] HEMATOCRIT (HCT) 41.9 36.0 - 47.0 % 07/24/2021 5:47 PM [facility] MCV 101.0(H) 82.0 - 96.0 fL 07/24/2021 5:47 PM MOTORS AND GENERATORS INSPECTOR [facility] MCH 32.3 26.0 - 34.0 pg 07/24/2021 5:47 PM [facility] MCHC 32.0 31.0 - 36.0 g/dL 07/24/2021 5:47 PM [facility] PLATELET COUNT 296 140 - 440 10(3)/mcL 07/24/2021 5:47 PM [facility] RDW 11.8 11.8 - 15.5 % 07/24/2021 5:47 PM [facility] MPV 10.7 9.7 - 12.4 fL 07/24/2021 5:47 PM [facility] NEUTROPHILS 58.7 47.0 - 73.0 % 07/24/2021 5:47 PM [facility] LYMPHOCYTES 32.7 18.0 - 42.0 % 07/24/2021 5:47 PM [facility] MONOCYTES 6.9 4.0 - 12.0 % 07/24/2021 5:47 PM MOTORS AND GENERATORS INSPECTOR [facility] EOSINOPHILS 1.0 0.0 - 5.0 % 07/24/2021 5:47 PM MOTORS AND GENERATORS INSPECTOR [facility] BASOPHILS 0.7 0.0 - 1.0 % 07/24/2021 5:47 PM MOTORS AND GENERATORS INSPECTOR [facility] ABSOLUTE NEUTROPHILS 5.23 1.60 - 7.70 10(3)/[facility] 07/24/2021 5:47 PM MOTORS AND GENERATORS INSPECTOR [facility] ABSOLUTE LYMPHOCYTES 2.91 1.30 - 3.20 10(3)/[facility] 07/24/2021 5:47 PM MOTORS AND GENERATORS INSPECTOR [facility] ABSOLUTE MONOCYTES 0.61 0.20 - 1.00 10(3)/[facility] 07/24/2021 5:47 PM MOTORS AND GENERATORS INSPECTOR [facility] ABSOLUTE EOSINOPHIL 0.09 0.00 - 0.40 10(3)/[facility] 07/24/2021 5:47 PM MOTORS AND GENERATORS INSPECTOR [facility] ABSOLUTE BASOPHILS 0.06 0.00 - 0.10 10(3)/[facility] 07/24/2021 5:47 PM MOTORS AND GENERATORS INSPECTOR [facility] NRBC PER 100 WBC 0 07/24/20 21 5:47 PM MOTORS AND GENERATORS INSPECTOR [facility] Blood Venous Catheter (IV) / Unknown 07/24/2021 5:25 PM MOTORS AND GENERATORS INSPECTOR 07/24/2021 5:43 PM MOTORS AND GENERATORS INSPECTOR us Alexandra Lopez MD HEMATOLOGY ORDERABLES Final R esult [facility] [place] [address] * TYPE & SCREEN (CROSSMATCH CONVERTIBLE) (07/24/2021 5:25 PM MOTORS AND GENERATORS INSPECTOR) ABO TYPING O 07/24/2021 6:32 PM MOTORS AND GENERATORS INSPECTOR [facility] RH Positive 07/24/2021 6:32 PM MOTORS AND GENERATORS INSPECTOR [facility] ABSC Negative 07/24/2021 6:32 PM MOTORS AND GENERATORS INSPECTOR [facility] Blood Venous Catheter (IV) / Unknown 07/24/2021 5:25 PM MOTORS AND GENERATORS INSPECTOR 07/24/2021 5:43 PM MOTORS AND GENERATORS INSPECTOR us Alexandra Lopez MD BLOOD BANK ORDERABLES Edited Result - Final [facility] [address] [place] [address] * (ABNORMAL) CMP (Comprehensive Metabolic Panel) (07/24/2021 5:25 PM MOTORS AND GENERATORS INSPECTOR) Pathologist [facility] SODIUM 136 136 - 144 mmol/L 07/24/2021 6:05 PM [facility] POTASSIUM 4.2 3.5 - 5.1 mmol/L 07/24/2021 6:05 PM [facility] CHLORIDE 103 100 - 110 mmol/L 07/24/2021 6:05 PM [facility] CO2, VENOUS 18(L) 22 - 32 mmol/L 07/24/2021 6:05 PM [facility] ANION GAP 19.2 8.0 - 20.0 mmol/L 07/24/2021 6:05 PM [facility] GLUCOSE 76 70 - 99 mg/dL 07/24/2021 6:05 PM [facility] BUN 9 6 - 20 mg/dL 07/24/2021 6:05 PM [facility] CREATININE, BLOOD 0.50(L) 0.60 - 1.10 mg/dL 07/24/2021 6:05 PM [facility] BUN/CREATININE RATIO 18 12 - 20 ratio 07/24/2021 6:05 PM [facility] TOTAL PROTEIN 7.6 6.0 - 8.3 g/dL 07/24/2021 6:05 PM [facility] ALBUMIN 4.8 3.5 - 5.2 g/dL 07/24/2021 6:05 PM [facility] Comment: The colormetric methods used for the determination of Albumin may lead to falsely elevated test results in patients suffering from renal failure or insufficiency due to interference with other proteins. A/G RATIO 1.7 1.0 - 2.0 07/24/2021 6:05 PM MOTORS AND GENERATORS INSPECTOR [facility] CALCIUM 9.2 8.9 - 10.3 mg/dL 07/24/2021 6:05 PM MOTORS AND GENERATORS INSPECTOR [facility] T BILI 0.5 <=1.2 mg/dL 07/24/2021 6:05 PM MOTORS AND GENERATORS INSPECTOR [facility] SGOT (AST) 19 <=32 U/L 07/24/2021 6:05 PM MOTORS AND GENERATORS INSPECTOR [facility] SGPT (ALT) 9 <=41 U/L 07/24/2021 6:05 PM MOTORS AND GENERATORS INSPECTOR [facility] ALKALINE PHOSPHATASE 57 35 - 105 U/L 07/24/2021 6:05 PM MOTORS AND GENERATORS INSPECTOR [facility] GFR, EST. NONAFRICAN >60 >=60 07/24/2021 6:05 PM MOTORS AND GENERATORS INSPECTOR [facility] GFR, EST. >60 >=60 021 6:05 PM [facility] Comment: Creatinine Clearance is the preferred criteria for selecting drug dose adjustments in renally impaired patients. ??The GFR is provided as additional pertinent clinical information. GFR is reported in mL/min/1.73 sq m. Blood Venous Catheter (IV) / Unknown 07/24/2021 5:25 PM MOTORS AND GENERATORS INSPECTOR 07/24/2021 5:43 PM MOTORS AND GENERATORS INSPECTOR us Alexandra Lopez MD CHEMISTRY ORDERABLES Final Re sult [facility] [address] [place] [address] * (ABNORMAL) Urinalysis Reflex if Indicated by Abnormal Results (07/24/2021 5:05 PM MOTORS AND GENERATORS INSPECTOR) SPECIFIC GRAVITY 1.005 1.003 - 1.030 07/24/2021 5:38 PM MOTORS AND GENERATORS INSPECTOR [facility] URINE PH 6.5 5.0 - 9.0 07/24/2021 5:38 PM MOTORS AND GENERATORS INSPECTOR [facility] WBC ESTERASE Negative Negative 07/24/2021 5:38 PM MOTORS AND GENERATORS INSPECTOR [facility] NITRITE Negative Negative 07/24/2021 5:38 PM MOTORS AND GENERATORS INSPECTOR [facility] PROTEIN, RANDOM URINE Negative Negative 07/24/2021 5:38 PM MOTORS AND GENERATORS INSPECTOR [facility] URINE GLUCOSE, QUAL Negative Negative 07/24/2021 5:38 PM MOTORS AND GENERATORS INSPECTOR [facility] URINE KETONES Negative Negative 07/24/2021 5:38 PM MOTORS AND GENERATORS INSPECTOR [facility] UROBILINOGEN Normal Normal mg/dL 07/24/2021 5:38 PM MOTORS AND GENERATORS INSPECTOR [facility] URINE BLOOD 250 /uL(A) Negative ag/ul 07/24/2021 5:38 PM MOTORS AND GENERATORS INSPECTOR [facility] URINALYSIS COLOR Pale yellow 021 5:38 PM MOTORS AND GENERATORS INSPECTOR [facility] URINALYSIS CLARITY Clear 07/24/2021 5:38 PM MOTORS AND GENERATORS INSPECTOR [facility] WBC (Urine) 0-5 Negative, 0-5 /hpf 07/24/2021 5:38 PM MOTORS AND GENERATORS INSPECTOR [facility] URINE RBC'S 21-50(A) Negative, 0-2 /hpf 07/24/2021 5:38 PM MOTORS AND GENERATORS INSPECTOR [facility] EPITHELIAL CELLS Small amount /lpf 2020 5:38 PM MOTORS AND GENERATORS INSPECTOR [facility] BACTERIA, URINE Many(A) Negative /hpf 07/24/2021 5:38 PM MOTORS AND GENERATORS INSPECTOR [facility] Urine URINE SPECIMEN / Unknown Non-Phlebotomy Collection / Unknown 07/24/2021 5:05 PM MOTORS AND GENERATORS INSPECTOR 07/24/2021 5:22 PM MOTORS AND GENERATORS INSPECTOR us Alexandra Lopez MD URINE ORDERABLES Final Result [facility] [place] [address] documented in this encounter Visit Diagnoses Diagnosis Dysmenorrhea- Primary documented in this encounter Administered Medications Inactive Administered Medications - up to 3 most recent administrations Medication Order MAR Action Action Date Dose Rate Site ketorolac (TORADOL) injection 15 mg 15 mg, Intravenous, ONCE, 1 dose, On Thu07/24/21 at 1700 Given 07/24/2021 5:53 PM MOTORS AND GENERATORS INSPECTOR 15 mg documented in this encounter Active and Recently Administered Medications Times are shown in MOTORS AND GENERATORS INSPECTOR. Scheduled Medication Order 07/22/2021 07/23/2021 07/24/2021 ketorolac (TORADOL) injection 15 mg (COMPLETED) 15 mg, Intravenous, ONCE, 1 dose, On Thu07/24/21 at 1700 1753 (Given - Provid er: Cal Moran RN) documented in this encounter Additional Health Concerns Assessment Noted Time PHQ-9 Depression Total Score: 15 021 3:00 PM MOTORS AND GENERATORS INSPECTOR documented as of this encounter Care Teams Peg Driver Relationship Specialty Start Date End Date Nubia Brown PAC [address] [place] [address] PCP - General Physician Emergency Response Coordinator 08/13/20 03/01/23 documented as of this encounter
--- OUTSIDE RECORDS SUMMARY | 2024-08-30 03:02 | XMS_ITS | Encounter Summary ---
Author Organization [facility] Address [address] 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 No / Unsure 02/18/2022 3:55 PM CDT documented as of this encounter Miscellaneous Notes * Telephone Encounter - Jocelynn Carvalho RN - 02/21/2022 5:00 PM CDT SITUATION: Upper abdominal pain BACKGROUND: Diaphragmic hernia, Symptoms ongoing, 02/18 OV ASSESSMENT: Symptom Description / Location: Denies vomiting since starting medication Hot and cold flashes Pain (0-10): 9/10-constant Temp: Denies fever Treatment / Response: RECOMMENDATION: See care advice and disposition for Guideline Advised patient to go to ED. Voices understanding and is agreeable. Assistive Devices verified First positive answer recorded, all responses to prior questions were negative. If symptoms increase, change or if new symptoms develop, call your HCP or call back. Recommendations were based on caller information and is not a diagnosis. Verified and reviewed all triage information with caller. Reason for Disposition ? ? [1] SEVERE pain (e.g., excruciating) AND [2] present > 1 hour Protocols used: ABDOMINAL PAIN - UPPER-A-AH documented in this encounter Plan of Treatment [...] Health Behavioral Health No Varble, Traci A, FREIGHT ADJUSTER Note: Carlene will report a decrease in [...] documented as of this encounter Care Teams Radiotelegrapher Relationship Specialty Start Date End Date Nubia Brown PAC [address] [place] [address] PCP - General Physician Business Intelligence Consultant 08/13/20 03/01/23 documented as of this encounter
--- OUTSIDE RECORDS SUMMARY | 2024-08-30 03:02 | XMS_ITS | Encounter Summary ---
Author Organization [facility] Address [address] 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 Requested Prescriptions Pending Prescriptions Disp Refills hydrOXYzine (ATARAX) 50 MG Tablet 60 Tablet 1 Sig: TAKE 1-2 TABLETS BY MOUTH AT BEDTIME NEEDED FOR SLEEP Not Delegated - Off Protocol Failed - 10/23/2021 5:36 AM Failed - This refill cannot be delegated Passed - Visit with relevant provider in past 12 months or upcoming 90 days Recent Visits Date Type Provider Dept 07/02/21 [place] [facility] [facility] [facility] [place] Office [place] [facility]ubia Brown, [place] [facility] [place] Showing recent visits within past 365 days and meeting all other requirements Future Appointments No visits were found meeting these conditions. Showing future appointments within next 90 days and meeting all other requirements WARE SALES REPRESENTATIVE documented in this encounter Plan of Treatment [...] Behavioral Health Behavioral Health No Traci Romero, HEALTH COACH Note: Carlene will report a decrease [...] Depression Total Score: 15 021 3:00 PM SOFTWARE SALES REPRESENTATIVE documented as of this encounter Care Teams Senior Portfolio Manager Relationship Specialty Start Date End Date Nubia Brown PAC [address] [place] [address] PCP - General Physician Group Fitness Manager 08/13/20 03/01/23 documented as of this encounter
--- OUTSIDE RECORDS SUMMARY | 2024-08-30 03:02 | XMS_ITS | Encounter Summary ---
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 Behavioral Health Behavioral Health Traci Howe, STOCK CAR DRIVER Note: Carlene will report a decrease in [...] documented as of this encounter Care Teams Home Decorator Relationship Specialty Start Date End Date Nubia Brown PAC [address] [place] [address] PCP - General Physician Locomotive Pipe Fitter 08/13/20 03/01/23 documented as of this encounter
--- OUTSIDE RECORDS SUMMARY | 2024-08-30 03:02 | XMS_ITS | Encounter Summary ---
Author Organization [facility] Address [address] 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 No / Unsure 05/08/2022 10:36 AM CDT documented as of this encounter Miscellaneous Notes * Telephone Encounter - Peyton Kay RN - 05/29/2022 9:11 AM CDT PDMP [place] 05/05/22 - 3 days Clonazepam 04/30/22 - 15 days Medication failed the protocol, provider to review and approve the medication order if appropriate. Requested Prescriptions Pending Prescriptions Disp Refills HYDROcodone-acetaminophen (NORCO) 5-325 MG Tablet 15 Tablet 0 Sig: Take 1 Tablet by mouth every 4 hours as needed for Moderate or more severe pain. Not Delegated - Opioid Combinations Protocol Failed - 05/28/2022 11:33 PM Failed - This refill cannot be delegated Passed - Visit with relevant provider in past 12 months or upcoming 90 days Recent Visits Date Type Provider Dept 05/08/22 Office Visit Nubia Brown PAC [facility] 03/04/22 Office Visit Nubia Brown PAC [facility] 02/18/22 Office Visit Nubia Brown PAC [facility] 01/02/22 Office Visit Nubia Brown PAC [facility] 12/05/21 Telemedicine Nubia Brown PAC [facility] 07/02/21 Office Visit Nubia Brown, PAC [facility] Showing recent visits within past 365 days and meeting all other requirements Future Appointments Date Type Provider Dept 08/07/22 Appointment Nubia Brown PAC [facility] Showing future appointments within next 90 days and meeting all other requirements clonazePAM (KlonoPIN) 0.5 MG Tablet 30 Tablet 0 Sig: Take 1 Tablet by mouth 2 times daily as needed for Anxiety (sleep). Not Delegated - Clonazepam Protocol Failed - 05/28/2022 11:33 PM Failed - This refill cannot be delegated Passed - Visit with relevant provider in past 12 months or upcoming 90 days Recent Visits Date Type Provider Dept 05/08/22 Office Visit Nubia Brown, PAC [facility] 03/04/22 Office Visit Nubia Brown, PAC [facility] 02/18/22 Office Visit Nubia Brown, PAC [facility] 01/02/22 Office Visit Nubia Brown, PAC [facility] 12/05/21 Telemedicine Nubia Brown, PAC [facility] 07/02/21 Office Visit Nubia Brown, PAC [facility] Showing recent visits within past 365 days and meeting all other requirements Future Appointments Date Type Provider Dept 08/07/22 Appointment Nubia Brown, PAC [facility] Showing [...] Department associated with goal: [facility] Steps to achieve [...] Department associated with goal: [facility] Steps to achieve [...] Diagnoses Diagnosis Abdominal pain, unspecified abdominal location Insomnia, unspecified type Anxiety and depression Dysthymic disorder documented in this encounter Additional Health Concerns Assessment Noted Time PHQ-9 Depression Total Score: 23 022 11:00 AM CDT documented as of this encounter Care Teams Engraver Hand Soft Metals Relationship Specialty Start Date End Date Nubia Brown PAC [address] [place] [address] PCP - General Physician Press Setup Operator 08/13/20 03/01/23 documented as of this encounter
--- OUTSIDE RECORDS SUMMARY | 2024-08-30 03:02 | XMS_ITS | Encounter Summary ---
Author Organization [facility] Address [address] 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 No / Unsure 03/04/2022 1:10 PM CDT documented as of this encounter Miscellaneous Notes * Telephone Encounter - Nubia Brown PAC - 03/05/2022 11:50 AM CDT Omeprazole sent in at higher dose if they will cover * Telephone Encounter - Leander Garland - 03/04/2022 3:12 PM CDT Received a faxed Rx request from pharmacy. Reordered refill medication(s) requested and pended for nurse and physician/RAFFY review. Refill encounter routed to nurse Jagruti's pool for processing. Medication Patoprazole is not coved and the pharmacy requesting alternative Omeprazole Cap 20MG documented in this encounter Plan of Treatment [...] Ready to change Department associated with goal: [facility] Steps to achieve goal: [...] change Department associated with goal: [facility] Steps to [...] documented as of this encounter Care Teams Lining Feller Blindstitch Relationship Specialty Start Date End Date Nubia Brown PAC [address] [place] [address] PCP - General Physician Clinical Technician 08/13/20 03/01/23 documented as of this encounter
--- OUTSIDE RECORDS SUMMARY | 2024-08-30 03:02 | XMS_ITS | Encounter Summary ---
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 will gain insight regarding impact of trauma and gain relief from traumatic stress. Goal Reviewed with: patient Readiness to change: Ready to change Department associated with goal: [facility] Steps to achieve goal: will share personal trauma story in counseling/psychotherapy sessions. will learn/identify how trauma has impacted personal life, physical health and behavioral health. will identify and practice, at least two, skills/activities/routines, to gain relief from the impact of trauma. Behavioral Health Behavioral Health Traci Howe, PINKING MACHINE OPERATOR Note: Carlene will report a decrease in symptoms of depression to have reduction of depression symptoms. Goal Reviewed with: patient Readiness to change: Ready to change Department associated with goal: [facility]IOR[facility] HE[facility] Steps to [...] as of this encounter Care Teams Electrical Instrument Technician Relationship Specialty Start Date End Date Nubia Brown PAC [address] [place] [address] PCP - General Physician Manager Of Supply Chain 08/13/20 03/01/23 documented as of this encounter
--- OUTSIDE RECORDS SUMMARY | 2024-08-30 03:02 | XMS_ITS | Encounter Summary ---
Author Organization [facility] Address [address] [place] [address] Phone Care Team Providers Care Commercial Property Administrator Name Role Phone Nubia Brown [facility] Primary Care Provider + Reason for Referral * Radiology Services (Routine) - Closed Specialty Diagnoses / Procedures Referred By Contac t Referred To Contact Radiology Diagnoses Nausea and vomiting, unspecified vomiting type Procedures US ABDOMEN COMPLETE Renetta Walker PAC [address] [place] [address] Phone: tel: fax: Referral ID Status Reason Start Date Expiration Date Visits Re quested Visits Authorized [id number] Closed 03/14/2022 1 1 Reason for Visit * Radiology Services (Routine) - Closed Specialty Diagnoses / Procedures Referred By Contac t Referred To Contact Radiology Diagnoses Nausea and vomiting, unspecified vomiting type Procedures US ABDOMEN COMPLETE Renetta Walker PAC [address] [place] [address] Phone: tel: fax: Referral ID Status Reason Start Date Expiration Date Visits Re quested Visits Authorized [id number] Closed 03/14/2022 1 1 Encounter Details Date Type Department Care Team (Latest Contact Info) Description 03/21/2022 12:37 PM CDT - 03/21/2022 11:59 PM CDT Hospital Encounter [facility] [place] [address] Renetta Walker Alina, PAC [address] [place] [address] Discharge Disposition: Discharged to home or Selfcare [...] 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 No / Unsure 03/21/2022 12:23 PM CDT documented as of this encounter Medications at Time of Discharge Simethicone (ANTI GAS PO) Take by mouth 4 times daily. clonazePAM (KlonoPIN) 0.5 MG TabletIndications :Insomnia, unspecified type,Anxiety and depression Take 1 Tablet by mouth 2 times daily as needed for Anxiety (sleep). 30 Tablet 03/04/2022 04/14/2022 ergocalciferol (VITAMIN D) 35547 UNIT Capsule Take 1 Capsule by mouth once a week for 12 doses. 12 Capsule 01/02/2022 03/27/2022 HYDROcodone-aceta minophen (NORCO) 5-325 MG Tablet Take 1 Tablet by mouth every 4 hours as needed. 04/29/2022 omeprazole (PriLOSEC) 40 MG CAPSULE DELAYED RELEASE Take 1 Capsule by mouth daily. 90 Capsule 03/05/2022 08/07/2022 ondansetron (Zofran) 8 MG TabletIndications :Nausea and vomiting, unspecified vomiting type Take 1 Tablet by mouth every 8 hours as needed for Nausea - 1st line. 30 Tablet 1 03/04/2022 03/22/2022 sucralfate (CARAFATE) 1 GM Tablet Take 1 Tablet by mouth 4 times daily. Take 1 hour prior to meals 3 times daily and at bedtime 40 Tablet 03/04/2022 05/08/2022 venlafaxine (EFFEXOR-XR) 150 MG CAPSULE SR 24 HRIndications:Anx iety and depression Take 1 Capsule by mouth daily. 90 Capsule 01/02/2022 05/08/2022 documented as of this encounter Plan of [...] Ready to change Department associated with goal: [facility] BE[facility]AVIORAL HEALTH SERVICES Steps [...] Ready to change Department associated with goal: [facility] Steps [...] Name Priority Date/Time Associated Diagnosis Comments US ABDOMEN COMPLETE Routine 03/21/2022 1 :48 PM CDT Nausea and vomiting, unspecified vomiting type documented in this encounter Results * US ABDOMEN COMPLETE (03/21/2022 1:48 PM [...] 03/21/2022 5:10 PM - Electronically signed by ??Harshkaitlyn Gamino M.D. CH: YOLANDA D: ??03/21/2022 5:10 PM T: ??03/21/2022 5:10 PM Report ID: [id number] Reading Location: ??[id number] Procedure Note Harsh Gamino Jr., MD - [...] Harsh Gamino M.D. CH: YOLANDA Report ID: [id number] Reading Location: [id number] IMPRESSION: 1. Small size of the right kidney compatible with history of partial nephrectomy. 2. Otherwise negative abdominal ultrasound. us Renetta Walker PAC IMG US ORDERABLES Final R esult documented in this encounter Visit Diagnoses Diagnosis Nausea and vomiting, unspecified vomiting type documented in this encounter Additional Health Concerns Assessment Noted Time PHQ-9 Depression Total Score: 23 022 11:00 AM CDT documented as of this encounter Care Teams Commercial Property Administrator Relationship Specialty Start Date End Date Nubia Brown PAC [address] [place] [address] PCP - General Physician Parish Visitor 08/13/20 03/01/23 documented as of this encounter
--- OUTSIDE RECORDS SUMMARY | 2024-08-30 03:02 | XMS_ITS | Encounter Summary ---
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 will gain insight regarding impact of trauma and gain relief from traumatic stress. Goal Reviewed with: patient Readiness to change: Ready to change Department associated with goal: [facility]AVIORAL HEALTH SERVICES Steps to achieve goal: will share personal trauma story in counseling/psychotherapy sessions. will learn/identify how trauma has impacted personal life, physical health and behavioral health. will identify and practice, at least two, skills/activities/routines, to gain relief from the impact of trauma. Behavioral Health Behavioral Health Traci Howe, INFORMATION TECHNOLOGY SPECIALIST Note: Carlene will report a decrease in symptoms of depression to have reduction of depression symptoms. Goal Reviewed with: patient Readiness to change: Ready to change Department associated with goal: [facility]IORAL HE[facility] Steps to [...] Total Score: 15 09/17/ 021 3:00 PM CHAIN SAW OPERATOR documented as of this encounter Care Teams Medical Reimbursement Manager Relationship Specialty Start Date End Date Nubia Brown PAC [address] [place] [address] PCP - General Physician Taxi Dancer 08/13/20 03/01/23 documented as of this encounter
--- OUTSIDE RECORDS SUMMARY | 2024-08-30 03:02 | XMS_ITS | Encounter Summary ---
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 will gain insight regarding impact of trauma and gain relief from traumatic stress. Goal Reviewed with: patient Readiness to change: Ready to change Department associated with goal: [facility]IOR[facility] HE[facility] Steps to achieve goal: will share personal trauma story in counseling/psychotherapy sessions. will learn/identify how trauma has impacted personal life, physical health and behavioral health. will identify and practice, at least two, skills/activities/routines, to gain relief from the impact of trauma. Behavioral Health Behavioral Health Traci Howe, RETAIL ANALYST Note: Carlene will report a decrease in symptoms of depression to have reduction of depression symptoms. Goal Reviewed with: patient Readiness to change: Ready to change Department associated with goal: [facility] BEHAVIORAL HEALTH SERVICES Steps [...] Depression Total Score: 15 021 3:00 PM ENGRAVER COPPERPLATE documented as of this encounter Care Teams Pipe Coverer Helper Relationship Specialty Start Date End Date Nubia Brown PAC [address] [place] [address] PCP - General Physician [employer] 08/13/20 03/01/23 documented as of this encounter
--- OUTSIDE RECORDS SUMMARY | 2024-08-30 03:02 | XMS_ITS | Encounter Summary ---
Author Organization [facility] Address [address] [place] [address] Phone Care Team Providers Care Whale Trainer Name Role Phone Nubia Brown Primary Care Provider + Reason for Visit * Auth/Cert Specialty Diagnoses / Procedures Referred By Controsana t Referred To Contact Diagnoses ESOPHAGITIS Procedures EGD Heide Herrera MD [address] [place] [address] Phone: tel: fax: Referral ID Status Reason Start Date Expiration Date Visits Re quested Visits Authorized [id number] 1 1 Encounter Details Date Type Department Care Team (Late st Contact Info) Description 04/01/2022 8:50 AM CDT Ancillary Procedure [facility] Gi Lab [address] [place] [id number] Heide Herrera MD [address] [place] [address] Social History Tobacco Use Types Packs/Day Years [...] 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 Not on file [...] Ready to change Department associated with goal: [facility] BEHAVIORAL HEALTH SERVICES Steps to [...] Ready to change Department associated with goal: [facility] Steps to [...] Name Priority Date/Time Associated Diagnosis Comments GI LAB IMAGING - EGD Routine 04/01/2022 8:48 AM CDT documented in this encounter Results * GI LAB IMAGING - EGD (04/01/2022 8:48 AM CDT) Heide Herrera MD IMG DIAGNOSTIC ORDERABLES Final Result documented in this encounter Visit Diagnoses Not on filedocumented in this encounter Additional Health Concerns Assessment Noted Time PHQ-9 Depression Total Score: 23 022 11:00 AM CDT documented as of this encounter Care Teams Whale Trainer Relationship Specialty Start Date End Date Nubia Brown PAC [address] [place] [address] PCP - General Physician Body Cleaner 08/13/20 03/01/23 documented as of this encounter
--- OUTSIDE RECORDS SUMMARY | 2024-08-30 03:02 | XMS_ITS | Encounter Summary ---
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 will gain insight regarding impact of trauma and gain relief from traumatic stress. Goal Reviewed with: patient Readiness to change: Ready to change Department associated with goal: [facility]AVIORAL HEALTH [facility] Steps to achieve goal: will share personal trauma story in counseling/psychotherapy sessions. will learn/identify how trauma has impacted personal life, physical health and behavioral health. will identify and practice, at least two, skills/activities/routines, to gain relief from the impact of trauma. Behavioral Health Behavioral Health Traci Howe, RESTAURANT HOSPITALITY MANAGER Note: Carlene will report a decrease in symptoms of depression to have reduction of depression symptoms. Goal Reviewed with: patient Readiness to change: Ready to change Department associated with goal: [facility]IOR[facility] Steps to [...] documented as of this encounter Care Teams Cashier Checker Relationship Specialty Start Date End Date Nubia Brown PAC [address] [place] [address] PCP - General Physician Gravity Prospector 08/13/20 03/01/23 documented as of this encounter
--- OUTSIDE RECORDS SUMMARY | 2024-08-30 03:02 | XMS_ITS | Encounter Summary ---
Author Organization [facility] Address [address] 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 No / Unsure 03/06/2022 12:08 PM CDT documented as of this encounter Miscellaneous Notes * Telephone Encounter - Anitra Long - 03/07/2022 3:09 PM CDT Submitted prior authorization to insurance and received approval right away. Faxed approval to pharmacy. * Telephone Encounter - Anitra Long - 03/07/2022 3:09 PM CDT Images from the original note were not included. * Telephone Encounter - Nubia Brown PAC - 03/06/2022 10:31 AM CDT Ok for pa esophagitis dx * Telephone Encounter - Anitra Long - 03/06/2022 9:38 AM CDT Insurance requiring a prior authorization on Omeprazole 40 mg, ok to proceed? documented in this encounter Plan of Treatment Not on file documented as of this encounter Goals Goal Patient Goal Type Associated Problems Recent Progress Patient-Stated? Author Behavioral Health Behavioral Health Yes Traci Romero, GRAVE CLEANER Note: I just need to be able to handle this and talk to someone. will gain insight regarding impact of trauma and gain relief from traumatic stress. Goal Reviewed with: patient Readiness to change: Ready to change Department associated with goal: [facility]AVIORAL HEALTH SERVICES Steps to achieve goal: will share personal trauma story in counseling/psychotherapy sessions. will learn/identify how trauma has impacted personal life, physical health and behavioral health. will identify and practice, at least two, skills/activities/routines, to gain relief from the impact of trauma. Behavioral Health Behavioral Health No Traci Romero, GRAVE CLEANER Note: Carlene will report a decrease in symptoms of depression to have reduction of depression symptoms. Goal Reviewed with: patient Readiness to change: Ready to change Department associated with goal: [facility] BEHAVIORAL HEALTH SERVICES Steps to [...] as of this encounter Care Teams Senior It Architect Relationship Specialty Start Date End Date Nubia Brown PAC [address] [place] [address] PCP - General Physician Repair Supervisor 08/13/20 03/01/23 documented as of this encounter
--- OUTSIDE RECORDS SUMMARY | 2024-08-30 03:02 | XMS_ITS | Encounter Summary ---
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 No / Unsure 07/24/2021 4:15 PM WET PAN MIXER documented as of this encounter Plan of Treatment Not on file documented as of this encounter Goals Goal Patient Goal Type Associated Problems Recent Progress Patient-Stated? Author Behavioral Health Behavioral Health Yes Traci Romero, AUTISM TUTOR Note: I just need to be able to handle this and talk to someone. will gain insight regarding impact of trauma and gain relief from traumatic stress. Goal Reviewed with: patient Readiness to change: Ready to change Department associated with goal: [facility] Steps to achieve goal: will share personal trauma story in counseling/psychotherapy sessions. will learn/identify how trauma has impacted personal life, physical health and behavioral health. will identify and practice, at least two, skills/activities/routines, to gain relief from the impact of trauma. Behavioral Health Behavioral Health Traci Howe, AUTISM TUTOR Note: Carlene will report a decrease in symptoms of depression to have reduction of depression symptoms. Goal Reviewed with: patient Readiness to change: Ready to change Department associated with goal: [facility] Steps [...] Depression Total Score: 15 021 3:00 PM WET PAN MIXER documented as of this encounter Care Teams Welding Pantograph Machine Operator Relationship Specialty Start Date End Date Nubia Brown PAC [address] [place] [address] PCP - General Physician Quality Officer 08/13/20 03/01/23 documented as of this encounter
--- OUTSIDE RECORDS SUMMARY | 2024-08-30 03:02 | XMS_ITS | Encounter Summary ---
Author Organization [facility] Address [address] [place] [address] Phone Care Team Providers Care Spa Manager Name Role Phone Nubia Brown Primary Care Provider + Reason for Referral * Consult, Test & Initiate Treatment (Routine) - Closed Specialty Diagnoses / Procedures Referred By Kaleigh belle Referred To Contact Behavioral Health Diagnoses Anxiety and depression Nubia Brown PAC [address] [place] [address] Phone: tel: fax: Mallory Pimentel, [facility] Phone: tel: fax: Referral ID Status Reason Start Date Expiration Date Visits Re quested Visits Authorized [id number] Closed 12/05/2021 1 1 Scheduling Instructions Josephine is being referred for anxiety/depression, PTSD. Please contact patient for scheduling questions or concerns. 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 No / Unsure 12/05/2021 1:02 PM CDT documented as of this encounter Progress Notes * Nubia Brown, PAC - 12/05/2021 1:45 PM CDT Subjective: .Patient was assessed via online video for a duration of 17 minutes.?? Patient verbally consented for this service to be performed and billed.The patient was at home Patient discussed anxiety has been worse since she had a miscarriage last month. She is following up with OB for this Has history of anxiety Has not been able to sleep Tried ssri in past without improvements Has used klonopin for panic/sleep in past. Without excessive sedation Denies suicidal plan Atarax has not helped with anxiety Review of Systems Objective: Physical Exam Vitals reviewed. Constitutional: Appearance: Normal appearance. She is not ill-appearing. HENT: Head: Normocephalic and atraumatic. Eyes: General: Right eye: No discharge. Left eye: No discharge. Extraocular Movements: Extraocular movements intact. Pulmonary: Effort: No respiratory distress. Skin: General: Skin is warm. Neurological: Mental Status: She is alert. Psychiatric: Mood and Affect: Mood normal. Assessment and Plan See Diagnoses, Orders, Follow-up, and Instructions .Diagnoses and all orders for this visit: Anxiety and depression - venlafaxine (EFFEXOR-XR) 75 MG CAPSULE SR 24 HR; Take 1 Capsule by mouth daily. - BEHAVIORAL HEALTH REFERRAL; Future Insomnia, unspecified type - clonazePAM (KlonoPIN) 0.5 MG Tablet; Take 1 Tablet by mouth nightly as needed for Anxiety (sleep). Patient to start effexor, recommend counseling Use klonpin as needed for sleep for short term use If any suicidal plan go to ER Follow up in office in 4-6 weeks Notify if any worsening symptoms or problems with medications documented in this encounter Plan of Treatment Scheduled Referrals Name Type Priority Associated Diagnoses Order Schedule BEHAVIORAL HEALTH REFERRAL Outpatient Referral Routine Anxiety and depression Expected: 04/06/2023, Expires: 10/07/2023 documented as of this encounter Goals Goal [...] Ready to change Department associated with goal: [facility] Steps to achieve [...] Ready to change Department associated with goal: [facility] Steps to achieve [...] depression- Primary Dysthymic disorder Insomnia, unspecified type documented in this encounter Additional Health Concerns Assessment Noted Time PHQ-9 Depression Total Score: 15 021 3:00 PM UNDERWRITING CLERK documented as of this encounter Care Teams Spa Manager Relationship Specialty Start Date End Date Nubia Brown PAC [address] [place] [address] PCP - General Physician Compliance Vice President 08/13/20 03/01/23 documented as of this encounter
--- OUTSIDE RECORDS SUMMARY | 2024-08-30 03:02 | XMS_ITS | Encounter Summary ---
Author Organization [facility] Address [address] 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 No / Unsure 03/17/2022 1:26 PM CDT documented as of this encounter Miscellaneous Notes * Telephone Encounter - Justyna Reyes RMA - 03/17/2022 12:58 PM CDT Covid order pended for upcoming procedure, please approve. documented in this encounter Plan of Treatment [...] Behavioral Health Behavioral Health No Traci Romero, ACCOUNT RESOLUTION ANALYST Note: Carlene will report a decrease [...] this encounter Results * SARS-COV-2 BY MOLECULAR (03/31/2022 3:27 PM CDT) SARSCOV2 NOT DETECTED (Referenc e Range for this test is Not Detected) [facility] ID NOW B 03/31/2022 4:12 PM CDT [email or web address] Comment:This test was perfor med by a MOLECULAR, NON-PCR method Other NASAL STRUCTURE / Unknown Non-Phlebotomy Collection / Unknown 03/31/2022 3:27 PM CDT 03/31/2022 3:52 PM CDT Narrative [facility] [[email or web address] - 03/31/2022 4:12 PM CDT This test has been authorized [...] information for Clinicians can be found at: https://www.fda.gov/media/878741/download Additional information for Patients can be found at: https://www.fda.gov/media/500547/download Heide Herrera MD MICROBIOLOGY - GENERAL ORDERABL ES Final Result [facility] [address] [place] [address] documented in this encounter Visit Diagnoses Diagnosis Encounter for preprocedure screening laboratory testing for COVID-19- Primary documented in this encounter Additional Health Concerns Assessment Noted Time PHQ-9 Depression Total Score: 23 022 11:00 AM CDT documented as of this encounter Care Teams Warp Placer Relationship Specialty Start Date End Date Nubia Brown PAC [address] [place] [address] PCP - General Physician Police Commanding Officer 08/13/20 03/01/23 documented as of this encounter
--- OUTSIDE RECORDS SUMMARY | 2024-08-30 03:02 | XMS_ITS | Encounter Summary ---
Author Organization [facility] Address [address] 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 No / Unsure 04/01/2022 7:25 AM CDT documented as of this encounter Miscellaneous Notes * Telephone Encounter - Latrice De Souza RN - 04/29/2022 4:26 PM CDT PDMP and MEDD reviewed. Dispensed 04/15/22 as a 15-day supply Medication failed the protocol, provider to review and approve the medication order if appropriate. Requested Prescriptions Pending Prescriptions Disp Refills clonazePAM (KlonoPIN) 0.5 MG Tablet 30 Tablet 0 Sig: Take 1 Tablet by mouth 2 times daily as needed for Anxiety (sleep). Not Delegated - Clonazepam Protocol Failed - 04/29/2022 2:08 PM Failed - This refill cannot be delegated Passed - Visit with relevant provider in past 12 months or upcoming 90 days Recent Visits Date Type Provider Dept 03/04/22 Office Visit Nubia Brown PAC [facility] 02/18/22 Office Visit Nubia Brown PAC [facility] 01/02/22 Office Visit Nubia Brown, PAC [facility] 12/05/21 Telemedicine Nubia Brown, PAC [facility] 07/02/21 Office Visit Nubia Brown, PAC [facility] Showing recent visits within past 365 days and meeting all other requirements Future Appointments Date Type Provider Dept 05/01/22 Appointment Nubia Brown PAC [facility] Showing future appointments within next 90 days [...] trauma. Behavioral Health Behavioral Health Traci Howe, TELEPHONE CLEANER Note: Carlene will report a decrease [...] documented as of this encounter Care Teams Inside Sales Administrator Relationship Specialty Start Date End Date Nubia Brown PAC [address] [place] [address] PCP - General Physician Window Covering Sales Consultant 08/13/20 03/01/23 documented as of this encounter
--- OUTSIDE RECORDS SUMMARY | 2024-08-30 03:02 | XMS_ITS | Encounter Summary ---
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 Behavioral Health Behavioral Health Traci Howe, INTERVENTIONAL SALE CONSULTANT Note: Carlene will report a decrease in [...] documented as of this encounter Care Teams Alternative Medicine Practitioner Relationship Specialty Start Date End Date Nubia Brown PAC [address] [place] [address] PCP - General Physician Novelties Sales Representative 08/13/20 03/01/23 documented as of this encounter
--- OUTSIDE RECORDS SUMMARY | 2024-08-30 03:02 | XMS_ITS | Encounter Summary ---
Author Organization [facility] Address [address] 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 No / Unsure 05/08/2022 10:36 AM CDT documented as of this encounter Miscellaneous Notes * Telephone Encounter - Nubia Brown PAC - 03/04/2022 4:37 PM CDT Sig changed and refill resubmitted as patient is taking for anxiety/insomnia * Telephone Encounter - Ann-Marie Reid MA - 03/04/2022 3:05 PM CDT See script for Clonazepam 0.5 mg tabs Note to pharmacy fill 03/10/22 Patient called a would like to know if she can get this medication earlier than 03/10/22 ? Patient stated she was told with her previous refills she could take 1-2 tabs per day . Last refill dispensed on 02/18/22 (20 day supply) Please call patient @[phone] documented in this encounter Plan of Treatment Not on file documented as of this encounter Goals Goal Patient Goal Type Associated Problems Recent Progress Patient-Stated? Author Behavioral Health Behavioral Health Yes Traci Romero, PUPIL PERSONNEL WORKER Note: I just need to be able [...] Behavioral Health Behavioral Health No Traci Romero, PUPIL PERSONNEL WORKER Note: Carlene will report a decrease in [...] documented as of this encounter Care Teams Receiver Stocker Relationship Specialty Start Date End Date Nubia Brown PAC [address] [place] [address] PCP - General Physician Roastmaster 08/13/20 03/01/23 documented as of this encounter
--- OUTSIDE RECORDS SUMMARY | 2024-08-30 03:02 | XMS_ITS | Encounter Summary ---
Author Organization [facility] Address [address] [place] [address] Phone Care Team Providers Care Lcpc Name Role Phone Nubia Brown Primary Care Provider + Reason for Visit * Reason Comments Ear Pain Encounter Details Date Type Department Care Team (Late st Contact Info) Description 07/02/2021 10:15 AM ACQUISITION MANAGER Office Visit [facility] - Family Medicine [facility] [address] [place] [address] Nubia Brown PAC [address] [place] [address] Dysfunction of right eustachian tube (Primary Dx) Discharge Disposition: Discharged to home or Selfcare [...] have Coronavirus / COVID-19? No / Unsure 07/01/2021 3:18 PM ACQUISITION MANAGER documented as of this encounter Last Filed Vital Signs Vital Sign Reading Time Taken Comments Blood Pressure 122/78 07/02/2021 10:36 AM ACQUISITION MANAGER Pulse 82 07/02/2021 10:36 AM ACQUISITION MANAGER Temperature 36.6 ??C (97.8 ??F) 07/02/2021 10:[address] Respiratory Rate 18 07/02/2021 10:36 AM ACQUISITION MANAGER Oxygen Saturation 98% 07/02/2021 10:36 AM ACQUISITION MANAGER Inhaled Oxygen Concentration - - Weight 73.5 kg (162 lb 1.6 oz) 07/02/2021 10:36 AM ACQUISITION MANAGER Height 157.5 cm (5' 2 ) 07/02/2021 10:36 AM ACQUISITION MANAGER Body Mass Index 29.65 07/02/2021 10:36 AM ACQUISITION MANAGER documented in this encounter Progress Notes * Nani Renteria MA - 07/02/2021 10:15 AM CST Josephine Alejandre, 21 y.o., female is here for Ear Pain Medication Refills: Patient reports/denies need for medication refills. Orders Pended: no Requested Prescriptions No prescriptions requested or ordered in this encounter Home Medications Medication Sig Start Date End Date Taking? Authorizing Provider etonogestrel (NEXPLANON) 68 MG Implant 68 mg by Subcutaneous route. Patient not taking: Reported on 02/13/2021 ProviderTino MD hydrOXYzine (ATARAX) 50 MG Tablet TAKE 1-2 TABLETS BY ORAL ROUTE AT BEDTIME NEEDED FOR SLEEP Patient not taking: Reported on 02/13/2021 09/14/20 Nubia Brown PAC ketorolac (TORADOL) 10 MG Tablet Take 1 Tablet by mouth every 6 hours as needed for Moderate or more severe pain. Patient not taking: Reported on 07/02/2021 02/13/21 Gamal Vinson MD There are no discontinued medications. I have [...] Due ??? Pneumococcal Immunization (0-64 years) (1 of 2 - PPSV23) Never done ??? Meningococcal B Immunization (1 of 2 - Risk Bexsero 2-dose series) Never done ??? Human Papillomavirus (HPV) Immunization (1 - 2-dose series) Never done ??? Pap Smear Never done ??? SARS-COV-2 Immunization (2 - Pfizer 2-dose series) 12/18/2020 ??? DTaP/Tdap/Td Immunization (2 - Td or Tdap) 03/11/2021 ??? Influenza Immunization (1) 04/24/2021 Orders Pended: no The following BPA's have been addressed with the patient today: Flu ISITION MANAGER * Nubia Brown PAC - 07/02/2021 10:15 AM CST Subjective: Right ear pain for 4 days. Had stuffy nose and cough post nasal drainage, this resolved, no sick contacts Review of Systems Constitutional: Negative for chills. HENT: Positive for ear pain. Negative for sinus pressure, sinus pain and sore throat. Decreased hearing right ear Respiratory: Negative for chest tightness and shortness of breath. Cardiovascular: Negative for chest pain. Objective: Physical Exam Vitals reviewed. Constitutional: Appearance: Normal appearance. She is not ill-appearing. HENT: Head: Normocephalic and atraumatic. Right Ear: Tympanic membrane normal. There is no impacted cerumen. Left Ear: Tympanic membrane normal. There is no impacted cerumen. Mouth/Throat: Mouth: Mucous membranes are moist. Pharynx: Oropharynx is clear. Eyes: General: Right eye: No discharge. Left [...] .Diagnoses and all orders for this visit: Dysfunction of right eustachian tube Other orders - fluticasone (FLONASE) 50 MCG/ACT Suspension; 2 Sprays by Nasal route daily. Use in each nostril as directed. Discussed no ear infection. Start flonase as directed, notify if no improvements ISITION MANAGER documented in this encounter Plan of [...] Ready to change Department associated with goal: [facility] Steps to achieve [...] Ready to change Department associated with goal: [facility] Steps to achieve [...] as of this encounter Visit Diagnoses Diagnosis Dysfunction of right eustachian tube- Primary Dysfunction of Eustachian tube documented in this encounter Additional Health Concerns Assessment Noted Time PHQ-9 Depression Total Score: 15 021 3:00 PM ACQUISITION MANAGER documented as of this encounter Care Teams Lcpc Relationship Specialty Start Date End Date Nubia Brown PAC [address] [place] [address] PCP - General Physician Leave Specialist 08/13/20 03/01/23 documented as of this encounter
--- OUTSIDE RECORDS SUMMARY | 2024-08-30 03:02 | XMS_ITS | Encounter Summary ---
Author Organization [facility] Address [address] 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 No / Unsure 03/04/2022 1:10 PM CDT documented as of this encounter Miscellaneous Notes * Telephone Encounter - Peyton Kay RN - 03/03/2022 8:50 AM CDT PDMP Clonazepam 02/18/22 - 20 days - next due 03/10/22 Medication failed the protocol, provider to review and approve the medication order if appropriate. Requested Prescriptions Pending Prescriptions Disp Refills clonazePAM (KlonoPIN) 0.5 MG Tablet 20 Tablet 0 Sig: Take 1 Tablet by mouth nightly as needed for Anxiety (sleep). Not Delegated - Clonazepam Protocol Failed - 02/28/2022 9:17 PM Failed - This refill cannot be delegated Passed - Visit with relevant provider in past 12 months or upcoming 90 days Recent Visits Date Type Provider Dept 02/18/22 Office Visit Nubia Brown PAC [facility] 01/02/22 Office Visit Nubia Brown PAC [facility] 12/05/21 Telemedicine Nubia Brown PAC [facility] 07/02/21 Office Visit Nubia Brwon PAC [facility] Showing recent visits within past 365 days and meeting all other requirements Future Appointments Date Type Provider Dept 03/04/22 Appointment Nubia Brown PAC [facility] Showing future appointments within next 90 days and meeting all other requirements ondansetron (Zofran) 4 MG Tablet 20 Tablet 0 Sig: Take 1 Tablet by mouth every 8 hours as needed for Nausea - 1st line. Not Delegated - 5-HT3 Antagonists Protocol Failed - 02/28/2022 9:17 PM Failed - This refill cannot be delegated Passed - Visit with relevant provider in past 12 months or upcoming 90 days Recent Visits Date Type Provider Dept 02/18/22 Office Visit Nubia Brown PAC [facility] 01/02/22 Office Visit KevinNubiaeLISA [facility] 12/05/21 Telemedicine Nubia Brown PAC [facility] 07/02/21 Office Visit Nubia Brown PAC [facility] Showing recent visits within past 365 days and meeting all other requirements Future Appointments Date Type Provider Dept 03/04/22 Appointment Nubia Brown PAC [facility] Showing future appointments within next 90 days and meeting all other requirements sucralfate (CARAFATE) 1 GM Tablet 40 Tablet 0 Sig: Take 1 Tablet by mouth 4 times daily. Take 1 hour prior to meals 3 times daily and at bedtime Sucralfate Protocol Passed - 02/28/2022 9:17 PM Passed - Visit with relevant provider in past 12 months or upcoming 90 days Recent Visits Date Type Provider Dept 02/18/22 Office Visit Nubia Brown PAC [facility] 01/02/22 Office Visit Nubia Brown PAC [facility] 12/05/21 Telemedicine Nubia Brown PAC [facility] 07/02/21 Office Visit EdyjackykaitlynNubia PAC [facility] Showing recent visits within past 365 days and meeting all other requirements Future Appointments Date Type Provider Dept 03/04/22 Appointment KevinNubiaSilvia, PAC [facility] Showing future appointments within next 90 days and meeting all other requirements documented in this encounter Plan of Treatment Not on file documented as of this encounter Goals Goal Patient Goal Type Associated Problems Recent Progress Patient-Stated? Author Behavioral Health Behavioral Health Yes Traci Romero, FOREIGN AGENT Note: I just need to be able [...] Behavioral Health Behavioral Health No Traci Romero, FOREIGN AGENT Note: Carlene will report a decrease in [...] encounter Visit Diagnoses Diagnosis Insomnia, unspecified type Nausea and vomiting, unspecified vomiting type documented in this encounter Additional Health Concerns Assessment Noted Time PHQ-9 Depression Total Score: 23 022 11:00 AM CDT documented as of this encounter Care Teams High Heel Builder Relationship Specialty Start Date End Date Nubia Brown PAC [address] [place] [address] PCP - General Physician Manager Rental 08/13/20 03/01/23 documented as of this encounter
--- OUTSIDE RECORDS SUMMARY | 2024-08-30 03:02 | XMS_ITS | Encounter Summary ---
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 No / Unsure 07/01/2021 3:18 PM THIRD MATE documented as of this encounter Plan of Treatment Not on file documented as of this encounter Goals Goal Patient Goal Type Associated Problems Recent Progress Patient-Stated? Author Behavioral Health Behavioral Health Yes Traci Romero, INSULATION WORKER APPRENTICE Note: I just need to be able [...] trauma. Behavioral Health Behavioral Health Traci Howe, INSULATION WORKER APPRENTICE Note: Carlene will report a decrease in [...] Depression Total Score: 15 021 3:00 PM THIRD MATE documented as of this encounter Care Teams Ambulance Dispatcher Relationship Specialty Start Date End Date Nubia Brown PAC [address] [place] [address] PCP - General Physician Living Manager 08/13/20 03/01/23 documented as of this encounter
--- OUTSIDE RECORDS SUMMARY | 2024-08-30 03:02 | XMS_ITS | Encounter Summary ---
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 Behavioral Health Behavioral Health Traci Howe, SECURITY GUARD SUPERVISOR Note: Carlene will report a decrease [...] Total Score: 15 09/17/ 021 3:00 PM TRAVEL PT documented as of this encounter Care Teams Bag Printer Relationship Specialty Start Date End Date Nubia Brown PAC [address] [place] [address] PCP - General Physician On Air Personality 08/13/20 03/01/23 documented as of this encounter
--- OUTSIDE RECORDS SUMMARY | 2024-08-30 03:02 | XMS_ITS | Encounter Summary ---
Author Organization [facility] Address [address] [place] [address] Phone Care Team Providers Care Assistant Professor Of Physics Name Role Phone Nubia Brown Primary Care Provider + Reason for Visit * Auth/Cert Specialty Diagnoses / Procedures Referred By Kaleigh t Referred To Contact Diagnoses ESOPHAGITIS Procedures EGD Heide Herrera MD [address] [place] [address] Phone: tel: fax: Referral ID Status Reason Start Date Expiration Date Visits Re quested Visits Authorized [id number] 1 1 Encounter Details Date Type Department Care Team (Late st Contact Info) Description 04/01/2022 8:42 AM CDT [facility]est[facility] [address] [place] [address] Khadar Perez APRN, GASKET INSPECTOR [address] [place] [address] Anesthesia Record Procedure Summary Procedure Name Responsible Anesthesiologist Anesthesia Start Time Anesthesia Stop Time EGD- LARGE AMOUNT OF RETAINED FOOD, ANTRAL BIOPSY, SECOND PORTION DUODENUM BIOPSY Khadar Perez APRN, GASKET INSPECTOR 04/01/22 0842 04/01/22 0902 Events Date Time Event Comment 04/01/2022 0730 0842 An Start 0842 An Start Data 0842 ANASSESSCMPLT 0842 Start Supplemental O2 0842 Anesthesia Ready 0858 Stop Supplemental O2 0858 Stop Data Collection 0858 Transort to Postop 0902 Handoff to RN I completed my SBAR handoff to the receiving nurse. Last vitals BP: 147/79 Temp: 37 ??C (98.6 ??F) Pulse: 81 Resp: 17 SpO2: 100 % 0902 An Stop Last vitals: BP : 147/79 Temp: 37 ??C (98.6 ??F) Pulse: 81 Resp: 17 SpO2: 100 % Meds Name Total propofol 10 mg/mL 224,100 mcg * Agents Name Inspired CO2 (mmHg) ETCO2 (mmHg) * Blood No blood administrations on file. 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 No / Unsure 04/01/2022 7:25 AM CDT documented as of this encounter OR Notes * Anesthesia Postprocedure Evaluation - Khadar Perez APRN, CRNA - 04/01/2022 9:03 AM CDT Patient: Josephine Alejandre Procedure Summary Date: 04/01/22 Room / Location: [facility] 01 / [facility] MAIN Anesthesia Start: 841 Anesthesia Stop: 901 Procedure: EGD- LARGE AMOUNT OF RETAINED FOOD, ANTRAL BIOPSY, SECOND PORTION DUODENUM BIOPSY (N/A )Diagnosis: (EGD- LARGE AMOUNT OF RETAINED FOOD, ANTRAL BIOPSY, SECOND PORTION DUODENUM BIOPSY) Surgeons: Heide Herrera MD Responsible Provider: Khadar Perez APRN, CRNA Anesthesia Type: MAC ASA Status: 2 Anesthesia Type: MAC Last vitals Vitals Value Taken Time BP Temp Pulse Resp SpO2 Pain score: 0 Pain management: adequate Patient location during evaluation: GI Lab Patient participation: Sufficiently recovered to participate Level of consciousness: sleepy but conscious Cardiovascular status: acceptable Respiratory status: acceptable Hydration status: acceptable Comments: Vital signs on nursing flowsheet Anesthetic complications: no Airway patency: patent Nausea and Vomiting: none * Anesthesia Preprocedure Evaluation - Khadar Perez APRN, CRNA - 04/01/2022 7:30 AM CDT Anesthesia Evaluation Procedure Information Date/Time: 04/01/22 0800 Procedure: EGD (N/A ) Location: [facility] / [facility] MAIN Surgeons: Heide Herrera MD Patient summary reviewed and Nursing notes reviewed No history of anesthetic complications No family history of anesthesia reaction Allergies: -- Topiramate -- Anxiety and Hallucinations -- Psychological problems/ Patient allergies reviewed. Medications: Current Facility-Administered Medications: ??? lactated ringers infusion, 20 mL/hr, Intravenous, Continuous, Heide Herrera MD Medications Prior to Admission: clonazePAM (KlonoPIN) 0.5 MG Tablet, Take 1 Tablet by mouth 2 times daily as needed for Anxiety (sleep)., Disp: 30 Tablet, Rfl: 0 ergocalciferol (VITAMIN D) 85742 UNIT Capsule, TAKE 1 CAPSULE BY MOUTH ONCE A WEEK FOR 12 DOSES., Disp: 12 Capsule, Rfl: 0 omeprazole (PriLOSEC) 40 MG CAPSULE DELAYED RELEASE, Take 1 Capsule by mouth daily., Disp: 90 Capsule, Rfl: 0 ondansetron (Zofran) 8 MG Tablet, Take 1 Tablet by mouth every 8 hours as needed for Nausea - 1st line., Disp: 30 Tablet, Rfl: 1 Simethicone (ANTI GAS PO), Take by mouth 4 times daily., Disp: , Rfl: sucralfate (CARAFATE) 1 GM Tablet, Take 1 Tablet by mouth 4 times daily. Take 1 hour prior to meals3 times daily and at bedtime, Disp: 40 Tablet, Rfl: 0 venlafaxine (EFFEXOR-XR) 150 MG CAPSULE SR 24 HR, Take 1 Capsule by mouth daily., Disp: 90 Capsule,Rfl: 0 Patient medications reviewed. Airway Mallampati: II TM distance: <3 FB Neck ROM: full Dental - normal exam Pulmonary - normal exam breath sounds clear to auscultation (+) tobacco use Cardiovascular - negative ROS and normal exam Exercise tolerance: good Rhythm: regular Rate: normal Neuro/Psych (+) headaches, psychiatric history GI/Hepatic/Renal (+) GERD, Endo/Other Risks, benefits, alternatives discussed with:patient. Anesthesia Plan ASA 2 MAC intravenous induction Anesthetic plan and risks discussed with Patient. Plan discussed with GASKET INSPECTOR and surgeon. documented in this encounter Plan [...] Ready to change Department associated with goal: [facility] Steps to achieve goal: will share personal trauma story in counseling/psychotherapy sessions. will learn/identify how trauma has impacted personal life, physical health and behavioral health. will identify and practice, at least two, skills/activities/routines, to gain relief from the impact of trauma. Behavioral Health Behavioral Health Traci Howe, TOUR COORDINATOR Note: Carlene will report a decrease in symptoms of depression to have reduction of depression symptoms. Goal Reviewed with: patient Readiness to change: Ready to change Department associated with goal: [facility] Steps to achieve [...] injection Intravenous, CONTINUOUS (in OR), Starting on Thu04/01/22 at 0848, Until Thu04/01/22 at 0903 New Bag 04/01/2022 8:48 AM CDT 300 mcg/kg/min 149.4 mL/hr documented in this encounter Additional Health Concerns Assessment Noted Time PHQ-9 Depression Total Score: 23 022 11:00 AM CDT documented as of this encounter Care Teams Assistant Professor Of Physics Relationship Specialty Start Date End Date Nubia Brown PAC [address] [place] [address] PCP - General Physician Bellman Captain 08/13/20 03/01/23 documented as of this encounter
--- OUTSIDE RECORDS SUMMARY | 2024-08-30 03:02 | XMS_ITS | Encounter Summary ---
Author Organization [facility] Address [address] 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 No / Unsure 04/01/2022 7:25 AM CDT documented as of this encounter Miscellaneous Notes * Telephone Encounter - Anitra Long - 05/05/2022 11:22 AM CDT Medication approved, faxed approval to pharmacy. * Telephone Encounter - Anitra Long - 05/05/2022 11:18 AM CDT Images from the original note were not included. * Telephone Encounter - Nubia Brown PAC - 04/30/2022 3:11 PM CDT Ok for PA * Telephone Encounter - Anitra Long - 04/30/2022 2:56 PM CDT Insurance requiring a prior authorization on Hydrocodone, ok to proceed? documented in this encounter Plan of Treatment Not on file documented as of this encounter Goals Goal Patient Goal Type Associated Problems Recent Progress Patient-Stated? Author Behavioral Health Behavioral Health Yes Traci Romero, BUMP GRADER OPERATOR Note: I just need to be [...] trauma. Behavioral Health Behavioral Health Traci Howe, BUMP GRADER OPERATOR Note: Carlene will report a decrease [...] documented as of this encounter Care Teams Shirt Sewer Relationship Specialty Start Date End Date Nubia Brown PAC [address] [place] [address] PCP - General Physician Manager Primary 08/13/20 03/01/23 documented as of this encounter
--- OUTSIDE RECORDS SUMMARY | 2024-08-30 03:02 | XMS_ITS | Encounter Summary ---
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 No / Unsure 07/10/2021 3:05 PM REPLENISHMENT SPECIALIST documented as of this encounter Plan of Treatment Not on file documented as of this encounter Goals Goal Patient Goal Type Associated Problems Recent Progress Patient-Stated? Author Behavioral Health Behavioral Health Yes Traci Romero, CLOTH MEASURER MACHINE Note: I just need to be able [...] impact of trauma. Behavioral Health Behavioral Health Traic Howe, CLOTH MEASURER MACHINE Note: Carlene will report a decrease in [...] Depression Total Score: 15 021 3:00 PM REPLENISHMENT SPECIALIST documented as of this encounter Care Teams Truck Body Builder Apprentice Relationship Specialty Start Date End Date Nubia Brown PAC [address] [place] [address] PCP - General Physician Blasting Coal Miner 08/13/20 03/01/23 documented as of this encounter
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
--- OUTSIDE RECORDS SUMMARY | 2024-08-30 03:02 | XMS_ITS | Encounter Summary ---
Author Organization [employer] Care Team Providers Care Director Of Logistics Name Role Phone Nubia Brown 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 No / Unsure 03/31/2022 3:18 PM CDT documented as of this encounter Plan of Treatment Not on file documented as of this encounter Goals Goal Patient Goal Type Associated Problems Recent Progress Patient-Stated? Author Behavioral Health Behavioral Health Yes Traci Romero, JUNIOR ADMINISTRATIVE ASSISTANT Note: I just need to be able [...] trauma. Behavioral Health Behavioral Health Traci Howe, JUNIOR ADMINISTRATIVE ASSISTANT Note: Carlene will report a decrease in [...] of this encounter Care Teams Director Of Logistics Relationship Specialty Start Date End Date Nubia Brown PAC [address] [place] [address] PCP - General Physician Vp Cardiovascular 08/13/20 03/01/23 documented as of this encounter
--- OUTSIDE RECORDS SUMMARY | 2024-08-30 03:02 | XMS_ITS | Encounter Summary ---
Author Organization [facility] Address [address] 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 No / Unsure 07/10/2021 3:05 PM DUMPSTER DRIVER documented as of this encounter Miscellaneous Notes * Telephone Encounter - Dayo Price RN - 07/10/2021 2:59 PM CST SITUATION: Neck pain BACKGROUND: Patient calling stating she had neck pain that started back in 8th grade. It seemed to have went away and now has come back. States it has come back in the last 2 weeks. ASSESSMENT: Symptom Description / Location: Right side of neck, patient states it feels swollen, Patient statesthese episodes don't happen all the time but do happen multiple times a day. Patient feels like thearea is warm to touch. Patient can move her neck to the left fine states it hurts to move it to theright but she can and feels like it starts to lock up. Patient states she has been fatigued and also has weakness in her legs. Denies: redness, injury, bruising, Denies chest pain, difficulty breathing, and shortness of breath. Pain: 5/10 right now, 8/10 at worst Constant or intermittent: Comes and goes, Pain location: Neck that sometimes turns into a migraine Temp/Route: does not have a thermometer I+O: WNL Treatment / Response: denies LMP / / : LMP last day 06/29/21 RECOMMENDATION: See care advice and disposition for Guideline Go to ED Now Allergies, medications, and pharmacy verified. Assisted services addressed; none needed. Digital services/ Chir[employer] Interactivehart offered Patient verbalized understanding, and agreeable to recommendations. First positive answer recorded, all responses to prior questions were negative. If symptoms increase, change or if new symptoms develop, call your HCP or call back. Recommendations were based on caller information and is not a diagnosis. Verified and reviewed all triage information with caller. Reason for Disposition ??? Stiff neck (can't touch chin to chest) and has headache Protocols used: NECK PAIN OR [id number] STER DRIVER documented in this encounter Plan of Treatment [...] change Department associated with goal: [facility] Steps [...] change Department associated with goal: [facility] Steps [...] Total Score: 15 09/17/ 021 3:00 PM DUMPSTER DRIVER documented as of this encounter Care Teams Global Climate Change Researcher Relationship Specialty Start Date End Date Nubia Brown PAC [address] [place] [address] PCP - General Physician Automotive Fuel Systems Converter 08/13/20 03/01/23 documented as of this encounter
--- OUTSIDE RECORDS SUMMARY | 2024-08-30 03:02 | XMS_ITS | Encounter Summary ---
Author Organization [facility] Address [address] [place] [address] Phone Care Team Providers Care Formal Service Waiter Name Role Phone Nubia Brown Primary Care Provider + Reason for Visit * Auth/Cert Specialty Diagnoses / Procedures Referred By Controsana t Referred To Contact Diagnoses ESOPHAGITIS Procedures EGD Heide Herrera MD [address] [place] [address] Phone: tel: fax: Referral ID Status Reason Start Date Expiration Date Visits Re quested Visits Authorized [id number] 1 1 Encounter Details Date Type Department Care Team (Late st Contact Info) Description 04/01/2022 7:25 AM CDT Ancillary Procedure [facility] Gi Lab Main [address] [place] [id number] Heide Herrera MD [address] [place] [address] Social History Tobacco Use Types Packs/Day Years [...] 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
--- OUTSIDE RECORDS SUMMARY | 2024-08-30 03:02 | XMS_ITS | Encounter Summary ---
Author Organization [facility] Address [address] 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 No / Unsure 03/21/2022 12:23 PM CDT documented as of this encounter Miscellaneous Notes * Telephone Encounter - Peyton Kay RN - 03/27/2022 8:30 AM CDT Medication failed the protocol, provider to review and approve the medication order if appropriate. Requested Prescriptions Pending Prescriptions Disp Refills ergocalciferol (VITAMIN D) 94885 UNIT Capsule [Pharmacy Med Name: VITAMIN D2 1.25MG(50,000 UNIT)] 12 Capsule 0 Sig: Take 1 Capsule by mouth once a week for 12 doses. Vitamin Supplements (Adult) Protocol Failed - 03/26/2022 1:48 PM Failed - Vitamin D less than 1.25mg Passed - Visit with relevant provider in past 12 months or upcoming 90 days Recent Visits Date Type Provider Dept 03/04/22 Office Visit Nubia Brown PAC [facility] 02/18/22 Office Visit Nubia Brown, PAC [facility] 01/02/22 Office Visit Nubia Brown, PAC [facility] 12/05/21 Telemedicine Nubia Brown PAC [facility] 07/02/21 Office Visit Nubia Brown, PAC [facility] Showing recent visits within past 365 days and meeting all other requirements Future Appointments Date Type Provider Dept 04/03/22 Appointment Nubia Brown PAC [facility] Showing future appointments within next 90 days [...] Ready to change Department associated with goal: [facility] Steps to achieve goal: will share personal trauma story in counseling/psychotherapy sessions. will learn/identify how trauma has impacted personal life, physical health and behavioral health. will identify and practice, at least two, skills/activities/routines, to gain relief from the impact of trauma. Behavioral Health Behavioral Health Traci Howe, MANAGER OF EXHIBITIONS AND COLLECTIONS Note: Carlene will report a decrease in symptoms of depression to have reduction of depression symptoms. Goal Reviewed with: patient Readiness to change: Ready to change Department associated with goal: [facility] Steps [...] documented as of this encounter Care Teams Revival Clerk Relationship Specialty Start Date End Date Nubia Brown PAC [address] [place] [address] PCP - General Physician Pin Chaser 08/13/20 03/01/23 documented as of this encounter
--- OUTSIDE RECORDS SUMMARY | 2024-08-30 03:02 | XMS_ITS | Encounter Summary ---
Author Organization [facility] Address [address] [place] [address] Phone Care Team Providers Care Admissions Manager Name Role Phone Nubia Brown Primary Care Provider + Reason for Visit * Auth/Cert Specialty Diagnoses / Procedures Referred By Kaleigh t Referred To Contact Diagnoses ESOPHAGITIS Procedures EGD Heide Herrera MD [address] [place] [address] Phone: tel: fax: Referral ID Status Reason Start Date Expiration Date Visits Re quested Visits Authorized [id number] 1 1 Encounter Details Date Type Department Care Team (Late st Contact Info) Description 04/01/2022 8:00 AM CDT - 04/01/2022 8:30 AM CDT [facility] Periop [address] [place] [address] Heide Herrera MD [address] [place], [place] [id number] EGD- LARGE AMOUNT OF RETAINED FOOD, ANTRAL BIOPSY, SECOND PORTION DUODENUM BIOPSY Surgery Details Date/Time Status Location OR Service Patient Class Case Class Case Type Trauma Case? 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 No / Unsure 04/01/2022 7:25 AM CDT documented as of this encounter Last Filed Vital Signs Vital Sign Reading Time Taken Comments Blood Pressure 147/79 04/01/2022 7:47 AM CDT Pulse 81 04/01/2022 7:47 AM CDT Temperature 37 ??C (98.6 ??F) 04/01/2022 7:47 AM CDT Respiratory Rate 17 04/01/2022 7:47 AM CDT Oxygen Saturation 100% 04/01/2022 7:47 AM CDT Inhaled Oxygen Concentration - - Weight - - Height - - Body Mass Index - - documented in this encounter Discharge Instructions * Discharge Instructions* Lolis Laneir RN - 04/01/2022 9:09 AM CDT YOU [...] WORK, UNLESS INSTRUCTED OTHERWISE. Call doctor's office ([phone]) or go to Emergency room for: Difficulty Breathing, Headache Or Visual Disturbances Persistent Dizziness Or Light-Headedness Persistent Nausea and Vomiting Temperature greater then 100.0 Significant abdominal pain, chest pain, or bleeding. Here at [facility] we strive to provide excellent care [...] envelope is provided. THANK YOU FOR CHOOSING [facility]. * Attachments The following attachments cannot be sent through Care Everywhere. * Upper Endoscopy Adult Care After ([place]) * Gastroparesis ([place]) documented in this encounter Medications at Time of Discharge Simethicone (ANTI GAS PO) Take by mouth 4 times daily. clonazePAM (KlonoPIN) 0.5 MG TabletIndications :Insomnia, unspecified type,Anxiety and depression Take 1 Tablet by mouth 2 times daily as needed for Anxiety (sleep). 30 Tablet 03/04/2022 04/14/2022 ergocalciferol (VITAMIN D) 81721 UNIT Capsule TAKE 1 CAPSULE BY MOUTH [...] past surgical history that includes Appendectomy (09/2019); Wagner Tooth Extraction; Stomach Surgery (10/27/2019); Kidney Removal [...] Interdisciplinary - Mary Kay Prince RN - 03/17/2022 1:36 PM CDT [facility] GI TEACHING Patient Name: Josephine Alejandre : 2000 CSN#: [id number] Person Educated Patient Ready to Learn Yes [...] be allowed to accompany you to the [facility]. No children under the age of 16 will be allowed in the [facility] unless they are the patient. 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 Case: [id number] ? Authorizing Provider: ??Heide Herrera MD ? Collected: ? 04/01/2022 08:55 AM ? Ordering Location: ? [facility] ? Received: ?04/01/2022 09:39 AM ? [facility] Gi ? Lab Main ? Pathologist: ? Gamal Olivarez MD ? Specimens: ?? A) - Stomach, ANTRAL BIOPSY ? B) - Duodenum, SECOND PORTION DUODENUM BIOPSY ? 04/02/2022 9:29 AM T [facility] FINAL DIAGNOSIS A. ANTRUM; BIOPSY: - [...] VIRAL CHANGE IS IDENTIFIED. 04/02/2022 9:29 AM T [facility] Pre-Operative Diagnosis ESOPHAGITIS 04/02/2022 9:29 AM [facility] Gross Description A. ANTRAL BIOPSY [...] submitted cassette B1. KS/sb 04/02/2022 9:29 AM CDT [facility] Microscopic Description Microscopic examination was performed which supports the final diagnosis. All control tissues stained appropriately. 04/02/2022 9:29 AM CDT [facility] Tissue STOMACH STRUCTURE / Unknown 04/01/2022 8:55 AM CDT 04/01/2022 9:39 AM CDT Tissue specimen (specimen) DUODENAL STRUCTURE / Unknown 04/01/2022 8:57 AM CDT 04/01/2022 9:39 AM CDT us Heide Herrera MD PATHOLOGY/CYTOLOGY ORDERABLES F inal Result [facility] [address] [place] [address] * GI LAB IMAGING - EGD (04/01/2022 8:48 AM CDT) Only the most recent of2 resultswithin the time period is included. us Heide Herrera MD IMG DIAGNOSTIC ORDERABLES Final Result * POCT Urine HCG () (04/01/2022 7:45 AM CDT) POC URINE Negative POC URINE CONTROL Quality Control Director Pass Urine 04/01/2022 7:45 AM CDT us [...] documented as of this encounter Care Teams Admissions Manager Relationship Specialty Start Date End Date Nubia Brown PAC [address] [place] [address] PCP - General Physician Account Services Representative 08/13/20 03/01/23 documented as of this encounter
--- OUTSIDE RECORDS SUMMARY | 2024-08-30 03:02 | XMS_ITS | Encounter Summary ---
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 Behavioral Health Behavioral Health Traci Howe, PHOTOGRAPHS CURATOR Note: Carlene will report a decrease in [...] documented as of this encounter Care Teams Fellmongery Worker Relationship Specialty Start Date End Date Nubia Brown PAC [address] [place] [address] PCP - General Physician Substation Technician 08/13/20 03/01/23 documented as of this encounter
--- OUTSIDE RECORDS SUMMARY | 2024-08-30 03:02 | XMS_ITS | Encounter Summary ---
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 will gain insight regarding impact of trauma and gain relief from traumatic stress. Goal Reviewed with: patient Readiness to change: Ready to change Department associated with goal: [facility] Steps to achieve goal: will share personal trauma story in counseling/psychotherapy sessions. will learn/identify how trauma has impacted personal life, physical health and behavioral health. will identify and practice, at least two, skills/activities/routines, to gain relief from the impact of trauma. Behavioral Health Behavioral Health Traci Howe, LUMITE INJECTOR Note: Carlene will report a decrease in symptoms of depression to have reduction of depression symptoms. Goal Reviewed with: patient Readiness to change: Ready to change Department associated with goal: [facility] Steps to achieve [...] documented as of this encounter Care Teams Clinical Material Handler Relationship Specialty Start Date End Date Nubia Brown PAC [address] [place] [address] PCP - General Physician Music Critic 08/13/20 03/01/23 documented as of this encounter
--- OUTSIDE RECORDS SUMMARY | 2024-08-30 03:03 | XMS_ITS | Encounter Summary ---
Author Organization [facility] Address [address] [place] [address] Phone Care Team Providers Care Sleep Medicine Physician Name Role Phone Nubia Brown PAC Primary Care Provider + Encounter Details Date Type Department Care Team (Late st Contact Info) Description 12/20/2020 Telephone [facility] [address] [place] [address] Nubia Brown, LISA [address] [place] [address] Social History Tobacco Use Types Packs/Day Years [...] you have received? 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 No / Unsure 12/20/2020 1:17 PM CDT documented as of this encounter Miscellaneous Notes * Telephone Encounter - Nubia Brown PAC - 12/20/2020 5:01 PM CDT Letter sent to [facility] * Telephone Encounter - Irasema Smith - 12/20/2020 4:03 PM CDT Patient needs a letter to return work stating that her covid test was negative and she is cleared to return to work. Letter needs to have patienst name, date of and address for employer. Please put in My chart when completed. Thank you documented in this encounter Plan of Treatment [...] Ready to change Department associated with goal: [facility] Steps to [...] Ready to change Department associated with goal: [facility] Steps to [...] Depression Total Score: 15 021 3:00 PM SUPERVISOR DRYING documented as of this encounter Care Teams Sleep Medicine Physician Relationship Specialty Start Date End Date Nubia Brown PAC [address] [place] [address] PCP - General Physician Lithographers Printer 08/13/20 03/01/23 documented as of this encounter
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
--- OUTSIDE RECORDS SUMMARY | 2024-08-30 03:03 | XMS_ITS | Encounter Summary ---
Author Organization [facility] Address [address] [place] [address] Phone Care Team Providers Care Inflated Ball Molder Name Role Phone Laura Reid MD Primary Care Provider [phone] Encounter Details Date Type Department Care Team (Late st Contact Info) Description 08/06/2020 Telephone [facility] [address] [place] [address] Nubia Brown PAC [address] [place] [address] Social History Tobacco Use Types Packs/Day Years Used Date Smoking Tobacco: Never Smokeless Tobacco: Never Comments Unknown Sex and Gender Information Value Date Recorded Sex Assigned at Not on file Legal Sex Female 9:35 PM CDT Gender Identity Not on file Sexual Orientation Not on file 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 No / Unsure 08/06/2020 1:08 PM SOLAR PHOTOVOLTAIC INSTALLER documented as of this encounter Miscellaneous Notes * Telephone Encounter - Leander Garland - 08/06/2020 1:51 PM CST Patient was completed on 08/01/20 Completed with saved notes R PHOTOVOLTAIC INSTALLER documented in this encounter Plan of Treatment Not on file documented as of this encounter Visit Diagnoses Not on filedocumented in this encounter Care Teams Inflated Ball Molder Relationship Specialty Start Date End Date Laura Reid MD [address] [facility] [address] [place] [address] [place] [id number] PCP - General Pediatrics 11/12/16 08/12/20 documented as of this encounter
--- OUTSIDE RECORDS SUMMARY | 2024-08-30 03:03 | XMS_ITS | Encounter Summary ---
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 No / Unsure 08/06/2020 1:08 PM ANTIQUE FURNITURE REPRODUCER documented as of this encounter Plan of Treatment Not on file documented as of this encounter Visit Diagnoses Not on filedocumented in this encounter Care Teams De Icer Finisher Relationship Specialty Start Date End Date Laura Reid MD [address] [facility] [address] [address] PCP - General Pediatrics 11/12/16 08/12/20 documented as of this encounter
--- OUTSIDE RECORDS SUMMARY | 2024-08-30 03:03 | XMS_ITS | Encounter Summary ---
Author Organization [facility] Address [address] [place] [address] Phone Care Team Providers Care Inspector Wire Rope Name Role Phone [facility] Primary Care Provider + Reason for Visit * Reason Comments Dental Pain Encounter Details Date Type Department Care Team (Latest Contact Info) Description 11/23/2020 1:55 PM CDT Urgent Care Visit [facility] [place] [address] [place] [address] Elliot Gilmore PAC [address] [place] [address] Tooth pain (Primary Dx) Discharge Disposition: Discharged to home or Selfcare Social History Tobacco Use Types Packs/Day Years Used Date Smoking Tobacco: Never Smokeless Tobacco: Never Alcohol Use Standard Drinks/Week [...] 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 No / Unsure 11/23/2020 1:45 PM CDT documented as of this encounter Last Filed Vital Signs Vital Sign Reading Time Taken Comments Blood Pressure 114/60 11/23/2020 1:53 PM CDT Pulse 105 11/23/2020 1:53 PM CDT Temperature 36.7 ??C (98.1 ??F) 11/23/2020 1:53 PM C DT Respiratory Rate 16 11/23/2020 1:53 PM CDT Oxygen Saturation 99% 11/23/2020 1:53 PM CDT Inhaled Oxygen Concentration - - Weight 63.5 kg (140 lb) 11/23/2020 1:53 PM CDT Height - - Body Mass Index 24.8 08/13/2020 10:59 AM SOFTWARE VALIDATION TECHNICIAN documented in this encounter Patient Instructions * Patient Instructions* Elliot Gilmore, PAC - 11/23/2020 1:55 PM CDT Images from the original note were not included. Start antibiotic and take as prescribed. May use Tramadol as needed for moderate or severe pain. May try OTC oragel or warm salt water gargles. Tylenol/ibuprofen as needed for pain. Ice as needed. If symptoms persist, follow up with a dentist. Dental Pain?? A crack or cavity in a tooth can cause tooth pain. This is because the crack or cavity exposes the sensitive inner area of the tooth. An infection in the gum or the tooth's root can cause pain and swelling. The pain is often made worse when you have a hot or cold drink. It can also be worse when you bite on hard foods. Pain may spread from the tooth to your ear, or to the part of the jaw on the sa me side. Home care Follow these tips when caring for yourself at home: ?? Don't have hot and cold foods and drinks. Your tooth may be sensitive to changes in temperature. ?? Use toothpaste made for sensitive teeth. [place] gently up and down instead of sideways. Brushing sideways can wear away root surfaces if they are exposed. ?? If your tooth is chipped or cracked, see a dentist right away. For short-term pain relief, put clove oil right on the tooth. You can buy clove oil at pharmacies. Some pharmacies carry an hbpv-edv-narpoxe toothache kit. This has a paste you can put on the exposed tooth to make it less sensitive. ?? Use a cold pack. Put a cold pack on your jaw over the sore area to help reduce pain. ?? Ask your healthcare provider about using gvke-uzl-gumlnlg medicine for pain. You may use this unless your provider prescribed another medicine. If you have long-term (chronic) liver or kidney disease, talk with your provider before using acetaminophen or ibuprofen. Also talk with your provider if you???ve had a stomach ulcer or GI (gastrointestinal) bleeding. ?? Be aware of infection. If you have signs of an infection, you will be given an antibiotic. Take it as directed. Follow-up care Follow up with your dentist, or as advised. Your pain may go away with the treatment given today. But only a dentist can fully check and treat the cause of your pain. This will keep the pain from coming back. Call 911 Call 911 if any of these occur: ?? Abnormal drowsiness ?? Headache or stiff neck ?? Weakness or fainting ?? Trouble swallowing or breathing When to get medical advice Call your healthcare provider right away??if any of these occur: ?? Your face gets swollen or red ?? Pain gets worse or spreads to your neck ?? Fever of 100.4??F (38.0??C) or higher, or as directed by your provider ?? Pus drains from the tooth [employer] App last reviewed this educational content on 07/24/2019 ?? [id number] [employer]. All rights reserved. This information is not intended as a substitute for professional medical care. Always follow your healthcare professional's instructions. documented in this encounter Progress Notes * Lacey Hauser RN - 11/23/2020 1:55 PM CDT Josephine Alejandre complains of Pain to left lower gum that radiates down left side of her neck. She believes there is a lump area on her gum. She has taken tylneol and tramadol with no improvement Dental Pain This is a new problem. The current episode started yesterday. The problem occurs constantly. The problem has been gradually worsening. The pain is at a severity of 7/10. She has tried acetaminophen for the symptoms. The treatment provided no relief. Today's ROS * Elliot Gilmore PAC - 11/23/2020 1:55 PM CDT Images from the original note were not included. Subjective: Josephine Alejandre is a 20 y.o. female who presents with complaints of left lower tooth pain. Pain radiates to the ear and neck Associated symptoms include neck stiffness and pain, foul smelling breath, sore throat (left sided) Symptoms began yesterday Symptoms are worsening since onset Severity of symptoms is moderate Patient is currently taking Tylenol and tramadol for their symptoms with little relief. History of wisdom teeth extraction Denies any injury to the area. Chief complaint and all history documented by ancillary staff, and any copy/pasted information werereviewed and verified, with additions or corrections, as appropriate. Past medical, family, and social history reviewed. Review of Systems Constitutional: Negative for chills, fatigue and fever. HENT: Positive for dental problem and sore throat. Negative for congestion, ear pain, rhinorrhea, sinus pressure and sinus pain. Respiratory: Negative for cough, shortness of breath and wheezing. Musculoskeletal: Positive for neck pain and neck stiffness. Hematological: Negative for adenopathy. Objective: Physical Exam Vitals and nursing note reviewed. Constitutional: General: She is not in acute distress. Appearance: Normal appearance. HENT: Head: Normocephalic and atraumatic. Right Ear: Hearing, tympanic membrane, ear canal and external ear normal. Left Ear: Hearing, tympanic membrane, ear canal and external ear normal. Nose: Nose normal. Right Sinus: No maxillary sinus tenderness or frontal sinus tenderness. Left Sinus: No maxillary sinus tenderness or frontal sinus tenderness. Mouth/Throat: Lips: Ozone. Mouth: Mucous membranes are moist. Dentition: Dental tenderness, gingival swelling and gum lesions present. No dental caries. Pharynx: No pharyngeal swelling or posterior oropharyngeal erythema. Cardiovascular: Rate and Rhythm: Normal rate and regular rhythm. Heart sounds: Normal heart sounds. Pulmonary: Effort: Pulmonary effort is normal. Breath sounds: Normal breath sounds. Lymphadenopathy: Head: Right side of head: Tonsillar adenopathy present. No submandibular adenopathy. Left side of head: Tonsillar adenopathy present. No submandibular adenopathy. Cervical: No cervical adenopathy. Skin: General: Skin is warm. Capillary Refill: Capillary refill takes less than 2 seconds. Neurological: General: No focal deficit present. Mental Status: She is alert and oriented to person, place, and time. Vitals: 11/23/20 1353 BP: 114/60 BP Location: Right Arm BP Position: Sitting BP Cuff Size: Regular Pulse: 105 Resp: 16 Temp: 98.1 ??F (36.7 ??C) TempSrc: Temporal SpO2: 99% Weight: 140 lb (63.5 kg) Assessment and Plan See Diagnoses, Orders, Follow-up, and Instructions Diagnoses and all orders for this visit: Tooth pain - amoxicillin (AMOXIL) 875 MG Tablet; Take 1 Tablet by mouth 2 times daily for 10 days. - traMADol (ULTRAM) 50 MG Tablet; Take 1 Tablet by mouth every 8 hours as needed for Moderate or more severe pain for up to 2 days. Start antibiotic and take as prescribed. May use Tramadol as needed for moderate or severe pain. May try OTC oragel or warm salt water gargles. Tylenol/ibuprofen as needed for pain. Ice as needed. If symptoms persist, follow up with a dentist. documented in this encounter Plan of Treatment Not on file documented as of this encounter Goals Goal Patient Goal Type Associated Problems Recent Progress Patient-Stated? Author Behavioral Health Behavioral Health Yes Traci Romero, VP DIRECTOR OF CREATIVE STRATEGY Note: I just need to be able to handle this and talk to someone. will gain insight regarding impact of trauma and gain relief from traumatic stress. Goal Reviewed with: patient Readiness to change: Ready to change Department associated with goal: [facility] Steps to achieve goal: will share personal trauma story in counseling/psychotherapy sessions. will learn/identify how trauma has impacted personal life, physical health and behavioral health. will identify and practice, at least two, skills/activities/routines, to gain relief from the impact of trauma. Behavioral Health Behavioral Health Traci Howe, VP DIRECTOR OF CREATIVE STRATEGY Note: Carlene will report a decrease in symptoms of depression to have reduction of depression symptoms. Goal Reviewed with: patient Readiness to change: Ready to change Department associated with goal: [facility] Steps to achieve [...] as of this encounter Visit Diagnoses Diagnosis Tooth pain- Primary Unspecified disorder of the teeth and supporting structures documented in this encounter Additional Health Concerns Assessment Noted Time PHQ-9 Depression Total Score: 15 09/17/ 021 3:00 PM SOFTWARE VALIDATION TECHNICIAN documented as of this encounter Care Teams Inspector Wire Rope Relationship Specialty Start Date End Date Nubia Brown PAC [address] [place] [address] PCP - General Physician Fruit Bar Maker 08/13/20 03/01/23 documented as of this encounter
--- OUTSIDE RECORDS SUMMARY | 2024-08-30 03:03 | XMS_ITS | Encounter Summary ---
Author Organization [facility] Address [address] [place] [address] Phone Care Team Providers Care Project Surveyor Name Role Phone Laura Reid MD Primary Care Provider Encounter Details Date Type Department Care Team (Late st Contact Info) Description 07/31/2020 Telephone [facility] - Family [facility] [address] [place] [address] Nubia Brown PAC [address] [place] [address] Social History Tobacco Use Types Packs/Day Years Used Date Smoking Tobacco: Never Comments Unknown Sex and Gender Information Value Date Recorded Sex Assigned at Not on file Legal Sex Female 9:35 PM CDT Gender Identity Not on file Sexual Orientation Not on file documented as of this encounter Miscellaneous Notes * Telephone Encounter - Leander Garland - 07/31/2020 5:55 PM CST Called to pre-visit,left msg [employer] documented in this encounter Plan of Treatment Not on file documented as of this encounter Visit Diagnoses Not on filedocumented in this encounter Care Teams Project Surveyor Relationship Specialty Start Date End Date Laura Reid MD [address] [place] [address] PCP - General Pediatrics 11/12/16 08/12/20 documented as of this encounter
--- OUTSIDE RECORDS SUMMARY | 2024-08-30 03:03 | XMS_ITS | Encounter Summary ---
Author Organization [facility] Address [address] 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 No / Unsure 08/13/2020 10:40 AM DIRECTOR GLOBAL MARKET RESEARCH documented as of this encounter Miscellaneous Notes * Telephone Encounter - Aisha Helm, RN - 08/27/2020 11:51 AM CST Medication(s) refilled and signed per [facility] Chronic Medication Refill Standing Order for Pediatricand Adult Patients. Requested Prescriptions Pending Prescriptions Disp Refills ??? hydrOXYzine (ATARAX) 50 MG Tablet [Pharmacy Med Name: HYDROXYZINE HCL 50 MG TABLET] 30 Tab 0 Sig: TAKE 1-2 TABLETS BY ORAL ROUTE AT BEDTIME NEEDED FOR SLEEP Gastroenterology: Antiemetics Passed - 08/26/2020 5:08 PM Passed - Valid encounter within last 12 months Past Office Visits Recent Outpatient Visits 2 weeks ago Chronic right-sided low back pain, unspecified whether sciatica present [facility] - Family Medicine - Nubia Mars PAC Upcoming Appointments Future Appointments Tomorrow Danisha George [facility] EVP OPERATIONS - Recent and Past Visits Recent Visits Date Type Provider Dept 08/13/20 Office Visit Nubia Brown PAC [facility] Showing recent visits within past 460 days with a meds authorizing provider and meeting all other requirements Future Appointments No visits were found meeting these conditions. Showing future appointments within next 90 days with a meds authorizing provider and meeting all other requirements CTOR GLOBAL MARKET RESEARCH documented in this encounter Plan of Treatment Not on file documented as of this encounter Visit Diagnoses Diagnosis Insomnia, unspecified type documented in this encounter Additional Health Concerns Assessment Noted Time PHQ-9 Depression Total Score: 22 020 11:00 AM DIRECTOR GLOBAL MARKET RESEARCH documented as of this encounter Care Teams Broadcast Supervisor Relationship Specialty Start Date End Date Nubia Brown PAC [address] [place] [address] PCP - General Physician Engagement Engineer 08/13/20 03/01/23 documented as of this encounter
--- OUTSIDE RECORDS SUMMARY | 2024-08-30 03:03 | XMS_ITS | Encounter Summary ---
Author Organization [facility] Address [address] [place] [address] Phone Care Team Providers Care Strap Cutter Name Role Phone Laura Reid MD Primary Care Provider Encounter Details Date Type Department Care Team (Late st Contact Info) Description 08/01/2020 Telephone [facility] [address] [place] [address] Nubia Brown PAC [address] [place] [address] Social History Tobacco Use Types Packs/Day Years Used Date Smoking Tobacco: Never Smokeless Tobacco: Never Comments Unknown Sex and Gender Information Value Date Recorded Sex Assigned at Not on file Legal Sex Female 9:35 PM CDT Gender Identity Not on file Sexual Orientation Not on file 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 Not on file Not on f ile documented as of this encounter Miscellaneous Notes * Telephone Encounter - Leander Garland - 08/01/2020 9:26 AM CST Called to pre-visit spoke to Mother(Addie) She gave me cell number to call Patient [phone] SETTING SUPERVISOR documented in this encounter Plan of Treatment Not on file documented as of this encounter Visit Diagnoses Not on filedocumented in this encounter Care Teams Strap Cutter Relationship Specialty Start Date End Date Laura Reid MD [address] [facility] [place] [address] PCP - General Pediatrics 11/12/16 08/12/20 documented as of this encounter
--- OUTSIDE RECORDS SUMMARY | 2024-08-30 03:03 | XMS_ITS | Encounter Summary ---
Author Organization [facility] Address [address] [place] [address] Phone Care Team Providers Care Harness Racing Handicapper Name Role Phone Nubia Brown Primary Care Provider + Reason for Visit * Reason Comments Follow-up ongoing issue Encounter Details Date Type Department Care Team (Late st Contact Info) Description 12/20/2020 1:15 PM CDT Office Visit [facility] - Family Medicine 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 No / Unsure 12/20/2020 1:17 PM CDT documented as of this encounter Last Filed Vital Signs Vital Sign Reading Time Taken Comments Blood Pressure 110/68 12/20/2020 1:23 PM CDT Pulse 91 12/20/2020 1:23 PM CDT Temperature 36.4 ??C (97.6 ??F) 12/20/2020 1:23 PM CD T Respiratory Rate 16 12/20/2020 1:23 PM CDT Oxygen Saturation 98% 12/20/2020 1:23 PM CDT Inhaled Oxygen Concentration - - Weight 67.6 kg (149 lb) 12/20/2020 1:23 PM CDT Height 157.5 cm (5' 2 ) 12/20/2020 1:23 PM CDT Body Mass Index 27.25 12/20/2020 1:23 PM CDT documented in this encounter Patient Instructions * Patient Instructions* Mami Dalton, DESKTOP SUPPORT ASSOCIATE - 12/20/2020 1:15 PM CDT Images from the original note were not included. How to Quit Smoking Smoking is a hard habit to break. About 50% of all??people who have ever smoked have been able to quit. Most people??who still smoke want to quit. Here are some of the best ways to stop smoking. Keep in mind the health benefits of quitting The health benefits of quitting start right away. They keep improving the longer you go without smoking. Knowing this can help inspire you to stay on track. These benefits occur at any age. If you are 17 or 70, quitting is a good choice. Some of the health benefits after your last cigarette include: ?? After 20 minutes: Your blood pressure and pulse return to normal. ?? After 8 hours: Your oxygen levels return to normal. ?? After 2 days: Your ability to smell and taste start to improve as damaged nerves regrow. ?? After 2 to 3 weeks: Your circulation and lung function improve. ?? After 1 to 9 months: Your coughing, congestion, and shortness of breath decrease. Your tirednessdecreases. ?? After 1 year: Your risk of heart attack decreases by 50%. ?? After 5 years: Your risk of lung cancer decreases by 50%. Your risk of stroke becomes the same as a nonsmoker???s. Go cold turkey Most??former smokers quit cold turkey. This means stopping all at once. Trying to cut back slowly often doesn't work as well. This may be because it continues the habit of smoking. Also you may inhale more smoke while smoking fewer cigarettes. This leads to the same amount of nicotine in your body. Get support Support programs can be a big help, especially for heavy smokers. These groups offer lectures, waysto change behavior, and peer support. Here are some ways to find a support program: ?? Free national quitline 993-GPUN-WWH (580-305-6548) ?? Hospital quit-smoking programs ?? Citizen [place] [employer] Association 459-591-6895 ?? [place] [employer] Society 308-952-9004 Support at home is important too. Family and friends can offer praise and reassurance. If the smoker in your life finds it hard to quit, encourage them to keep trying. Try lpqc-zcp-eywomsf medicine Nicotine replacement therapy??may make it??easier to quit. Some aids are available without a prescription. These include a nicotine patch, gum, and lozenges. But it's best to use these under the careof your healthcare provider. The skin patch gives a steady supply of nicotine. Nicotine gum and lozenges give??short-time doses of low levels of nicotine. Both methods reduce the craving for cigarettes. If you??have nausea, vomiting, dizziness, weakness, or a fast heartbeat, stop using these products. See your provider. Ask about prescription medicine After reviewing??your smoking patterns and past attempts to quit, your healthcare provider may offer a prescription medicine such as bupropion, varenicline, a nicotine inhaler, or nasal spray. Each has advantages and side effects. Your provider can review these with you. Keep trying Most smokers make many attempts at quitting before they succeed. It???s important not to give up. To learn more For more on how to quit smoking, try these resources:? www.cdc.gov/tobacco/quit_smoking/ 775-LBHL-VQJ (306-254-6093) ?? www.smokefree.gov 534-30Z-MEBQ (551-295-4799) ?? www.lung.org/stop-smoking/ 800-LUNGUSA (090-024-2277) Jodie last reviewed this educational content on 07/24/2019 ?? 8378-9259 [employer]. All rights reserved. This information is not intended as a substitute for professional medical care. Always follow your healthcare professional's instructions. documented in this encounter Progress Notes * Mami Dalton CMA - 12/20/2020 1:15 PM CDT Josephine Alejandre is a 20 y.o. female with current BMI: Body mass index is 25.61 kg/m??. Interventions discussed including: encourage daily physical activity and well- balanced diet. * Mami Dalton CMA - 12/20/2020 1:15 PM CDT Josephine Alejandre, 20 y.o., female is here for Follow-up (ongoing issue) Medication Refills: Patient reports/denies need for medication refills. Orders Pended: no Requested Prescriptions No prescriptions requested or ordered in this encounter Home Medications Medication Sig Start Date End Date Taking? Authorizing Provider Drospirenone-Ethinyl Estradiol 3-0.02 MG Tablet Take 1 Tablet by mouth. ProviderTino MD etonogestrel (NEXPLANON) 68 MG Implant 68 mg by Subcutaneous route. Yes Tino Santacruz MD hydrOXYzine (ATARAX) 50 MG Tablet TAKE 1-2 TABLETS BY ORAL ROUTE AT BEDTIME NEEDED FOR SLEEP Patient not taking: Reported on 12/17/2020 09/14/20 Nubia Brown PAC hydrOXYzine (VISTARIL) 50 MG Capsule Take 50 mg by mouth. 11/01/16 Yes Tino Santacruz MD lamoTRIgine (LaMICtal) 200 MG Tablet 200 mg. 12/16/15 Tino Santacruz MD Levonorgestrel-Ethinyl Estrad (Levora 0.15/30, 28,) 0.15-30 MG-MCG Tablet take 1 tablet by oral route every day 10/30/16 Tino Santacruz MD Multiple Vitamins-Iron (Daily-Trev/Iron/Beta-Carotene) Tablet Take 1 Tablet by mouth. 02/08/16 Tino Santacruz MD naproxen (NAPROSYN) 375 MG Tablet TAKE 1 TABLET BY MOUTH 2 TIMES A DAY WITH MEALS NEEDED 10/04/20Tino Santacruz MD tiZANidine (ZANAFLEX) 2 MG Tablet Take 1 Tab by mouth every 8 hours as needed for Muscle spasms. Patient not taking: Reported on 11/23/2020 08/13/20 Nubia Brown PAC There are no discontinued medications. I have reviewed the home medication list with the patient and have reconciled discrepancies. The list is accurate to the best of my knowledge. Smoking Status: Social History Tobacco Use ??? Smoking status: Current Every Day Smoker ??? Smokeless tobacco: Never Used Substance Use Topics ??? Alcohol use: Yes Comment: Social; occasional ??? Drug use: Yes Frequency: 7.0 times per week Types: Marijuana Comment: helps PTSD Smoking Cessation Counseling Given: yes Health Care Maintenance: Health Maintenance Due Topic Date Due ??? Pneumococcal Immunization (0-64 years) (1 of 1 - PPSV23) Never done ??? DTaP/Tdap/Td Immunization (1 - Tdap) Never done ??? Meningococcal B Immunization (1 of 2 - Risk Bexsero 2-dose series) Never done ??? Human Papillomavirus (HPV) Immunization (1 - 2-dose series) Never done ??? Pap Smear Never done ??? SARS-COV-2 Immunization (2 - Pfizer 2-dose series) 12/18/2020 Orders Pended: no The following BPA's have been addressed with the patient today: Smoking * Nubia Brown PAC - 12/20/2020 1:15 PM CDT Subjective: Having right sided sore throat and felt glands swollen Tired, In am worse sore throat Feels like strep Started 1 week ago, no improvement Taking tylenol, not helping Was seen in prompt care had rapid strep and covid negative tests Feels mild headache Review of Systems Constitutional: Positive for chills and fatigue. Negative for fever. HENT: Positive for sore throat and trouble swallowing. Respiratory: Positive for cough and shortness of breath. Cardiovascular: Negative for chest pain. Gastrointestinal: Positive for nausea. Negative for abdominal pain and vomiting. Objective: Physical Exam Vitals reviewed. Constitutional: Appearance: Normal appearance. She is not ill-appearing. HENT: Head: Normocephalic and atraumatic. Right Ear: Tympanic membrane normal. Left Ear: Tympanic membrane normal. Mouth/Throat: Mouth: Mucous membranes are moist. Pharynx: Oropharyngeal exudate and posterior oropharyngeal erythema present. Eyes: General: Right eye: No discharge. Left eye: No discharge. Extraocular Movements: Extraocular movements intact. Cardiovascular: Rate and Rhythm: Normal rate and regular rhythm. Heart sounds: No murmur. Pulmonary: Effort: Pulmonary effort is normal. No respiratory distress. Breath sounds: Normal breath sounds. No wheezing. Neurological: Mental Status: She is alert. Psychiatric: Mood and Affect: Mood normal. 12/17/20 covid and strep negative Assessment and Plan See Diagnoses, Orders, Follow-up, and Instructions .Diagnoses and all orders for this visit: Tonsillitis - CULTURE, GRP A STREPTOCOCCUS, CULT ONLY; Future - MONO TEST (INFECTIOUS MONONUCLEOSIS); Future Other orders - Discontinue: naproxen (NAPROSYN) 375 MG Tablet; TAKE 1 TABLET BY MOUTH 2 TIMES A DAY WITH MEALS NEEDED - Discontinue: Multiple Vitamins-Iron (Daily-Trev/Iron/Beta-Carotene) Tablet; Take 1 Tablet by mouth. - Discontinue: Levonorgestrel-Ethinyl Estrad (Levora 0.15/30, 28,) 0.15-30 MG- MCG Tablet; take 1 tablet by oral route every day - Discontinue: lamoTRIgine (LaMICtal) 200 MG Tablet; 200 mg. - Discontinue: hydrOXYzine (VISTARIL) 50 MG Capsule; Take 50 mg by mouth. - Discontinue: Drospirenone-Ethinyl Estradiol 3-0.02 MG Tablet; Take 1 Tablet by mouth. Suggest throat culture rule out strep and mono Discussed home care, recommend ibuprofen as needed, notify if no improvements Will follow up when lab resulted documented in this encounter Plan of Treatment [...] Ready to change Department associated with goal: [facility] Steps to achieve [...] Ready to change Department associated with goal: [facility] Steps to achieve [...] documented as of this encounter Results * CULTURE, GRP A STREPTOCOCCUS, CULT ONLY (12/20/2020 3:45 PM CDT) CULTURE RESULTS NO STREP PYOGENES (GROUP A BETA HEMOLYTIC STREP) ISOLATED AFTER 2 DAYS 12/22/2020 3:[address] [facility] Culture SPECIMEN FROM THROAT / Unknown Non-Phlebotomy Collection / Unknown 12/20/2020 3:45 PM CDT 12/20/2020 4:34 PM CDT us Nubia Brown PAC MICROBIOLOGY - GENERAL O RDERABLES Final Result Performing Organization Address City/[facility]/ZIP Co de Phone Number [facility] [address] [place] [address], [place] * (ABNORMAL) MONO TEST (INFECTIOUS MONONUCLEOSIS) (12/20/2020 3:38 PM CDT) MONO TEST Positive(A) Negative 12/20/2020 5:32 PM CDT [facility] Blood Venipuncture / Unknown 12/20/2020 3:38 PM CDT 12/20/2020 4:35 PM CDT us Nubia Brown PAC IMMUNOLOGY ORDERABLES Fi nal Result Performing Organization Address [facility] Co de Phone Number 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
--- OUTSIDE RECORDS SUMMARY | 2024-08-30 03:03 | XMS_ITS | Encounter Summary ---
Author Organization [facility] Address [address] [place] [address] Phone Care Team Providers Care Ham Smoker Name Role Phone Laura Reid MD Primary Care Provider [phone] Encounter Details Date Type Department Care Team (Late st Contact Info) Description 08/01/2020 Telephone [facility] - Family Medicine [facility] [address] [place] [address] Nubia Brown PAC [address] [place] [address] Social History Tobacco Use Types Packs/Day Years Used Date Smoking Tobacco: Never Smokeless Tobacco: Never Comments Unknown Sex and Gender Information Value Date Recorded Sex Assigned at Not on file Legal Sex Female 9:35 PM CDT Gender Identity Not on file Sexual Orientation Not on file 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
--- OUTSIDE RECORDS SUMMARY | 2024-08-30 03:03 | XMS_ITS | Encounter Summary ---
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 Behavioral Health Behavioral Health Traci Howe, FEED MILLER Note: Carlene will report a decrease in [...] Total Score: 15 09/17/ 021 3:00 PM ADMINISTRATIVE TECH documented as of this encounter Care Teams Engineering Research Manager Relationship Specialty Start Date End Date Nubai Brown PAC [address] [place] [address] PCP - General Physician Supervisor Of Operations 08/13/20 03/01/23 documented as of this encounter
--- OUTSIDE RECORDS SUMMARY | 2024-08-30 03:03 | XMS_ITS | Encounter Summary ---
Author Organization [facility] Address [address] 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 No / Unsure 12/20/2020 1:17 PM CDT documented as of this encounter Miscellaneous Notes * Telephone Encounter - Nely Reed, RN - 12/21/2020 10:01 AM CDT Patient calling in, states she saw mononucleosis on her MyChart and had questions regarding diagnosis. Sent information on mononucleosis via [email or web address]. documented in this encounter Plan of Treatment [...] change Department associated with goal: [facility] Steps to achieve [...] change Department associated with goal: [facility] Steps to achieve [...] Depression Total Score: 15 021 3:00 PM DIRECTOR OF FINANCIAL PLANNING documented as of this encounter Care Teams Airport Operations Manager Relationship Specialty Start Date End Date Nubia Brown PAC [address] [place] [address] PCP - General Physician Canary Raiser 08/13/20 03/01/23 documented as of this encounter
--- OUTSIDE RECORDS SUMMARY | 2024-08-30 03:03 | XMS_ITS | Encounter Summary ---
Author Organization [facility] Address [address] [place] [address] Phone Care Team Providers Care Property Field Inspector Name Role Phone Nubia Brown Primary Care Provider + Reason for Visit * Reason Comments Sore Throat Encounter Details Date Type Department Care Team (Late st Contact Info) Description 12/17/2020 8:15 AM CDT Urgent Care Visit [facility] [address] [place] [address] Esperanza Colon APRN, ADVANCED PRACTICE REGISTERED NURSE [address] [place] [address] Acute nonintractable headache, unspecified headache type (Primary Dx); Sore throat; Body aches; Viral illness Discharge Disposition: Discharged to home or Selfcare [...] 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 No / Unsure 12/17/2020 8:12 AM CDT documented as of this encounter Last Filed Vital Signs Vital Sign Reading Time Taken Comments Blood Pressure 118/74 12/17/2020 8:21 AM CDT Pulse 94 12/17/2020 8:21 AM CDT Temperature 36.9 ??C (98.4 ??F) 12/17/2020 8:21 AM CD T Respiratory Rate 20 12/17/2020 8:21 AM CDT Oxygen Saturation 99% 12/17/2020 8:21 AM CDT Inhaled Oxygen Concentration - - Weight 63.5 kg (140 lb) 12/17/2020 8:21 AM CDT Height 157.5 cm (5' 2 ) 12/17/2020 8:21 AM CDT Body Mass Index 25.61 12/17/2020 8:21 AM CDT documented in this encounter Patient Instructions * Patient Instructions* Esperanza Colon APN, ADVANCED PRACTICE REGISTERED NURSE - 12/17/2020 8:15 AM CDT Images from the original note were not included. Viral Syndrome (Adult) A viral illness may cause a number of symptoms such as fever. Other symptoms depend on the part of the body that the virus affects. If it settles in your nose, throat, and lungs, it may cause cough, sore throat, congestion, runny nose, headache, earache and other ear symptoms, or shortness of breath. If it settles in your stomach and intestinal tract, it may cause nausea, vomiting, cramping, and diarrhea. Sometimes it causes generalized symptoms like aching all over, feeling tired, loss of energy, or loss of appetite. A viral illness usually lasts anywhere from several days to several weeks, but sometimes it lasts longer. In some cases, a more serious infection can look like a viral syndrome in the first few days of the illness. You may need another exam and additional tests to know the difference. Watch for thewarning signs listed below for when to seek medical advice. Home care Follow these guidelines for taking care of yourself at home: ?? If symptoms are severe, rest at home for the first 2 to 3 days. ?? Stay away from cigarette smoke - both your smoke and the smoke from others. ?? You may use ncrw-xer-wptqtsy??acetaminophen or ibuprofen for fever, muscle aching, and headache,unless another medicine was prescribed for this. If you have chronic liver or kidney disease or ever had a stomach ulcer or gastrointestinal bleeding, talk with your healthcare provider before using these medicines. No one who is younger than 18 and ill with a fever should take aspirin. It may cause severe disease or . ?? Your appetite may be poor, so a light diet is fine. Avoid dehydration by drinking 8 to 12, 8-ounce glasses of fluids each day. This may include water; orange juice; lemonade; apple, grape, and cranberry juice; clear fruit drinks; electrolyte replacement and sports drinks; and decaffeinated teas and coffee. If you have been diagnosed with a kidney disease, ask your healthcare provider how much and what types of fluids you should drink to prevent dehydration. If you have kidney disease, drinking too much fluid can cause it build up in the your body and be dangerous to your health. ?? Yyco-clq-glmwpyp remedies won't shorten the length of the illness but may be helpful for symptoms such as cough, sore throat, nasal and sinus congestion, or diarrhea. Don't use decongestants if you have high blood pressure. Follow-up care Follow up with your healthcare provider if you do not improve over the next week. Call 911 Call 911 if any of the following occur: ?? Convulsion ?? Feeling weak, dizzy, or like you are going to faint ?? Chest pain, or more than mild shortness of breath When to seek medical advice Call your healthcare provider right away if any of these occur: ?? Cough with lots of colored sputum (mucus) or blood in your sputum ?? Chest pain, shortness of breath, wheezing, or trouble breathing ?? Severe headache; face, neck, or ear pain ?? Severe, constant pain in the lower right side of your belly (abdominal) ?? Continued vomiting (can???t keep liquids down) ?? Frequent diarrhea (more than 5 times a day); blood (red or black color) or mucus in diarrhea ?? Feeling weak, dizzy, or like you are going to faint ?? Extreme thirst ?? Fever of 100.4??F (38??C) or higher, or as directed by your healthcare provider [employer] last reviewed this educational content on 11/22/2017 ?? [id number] [employer]. All rights reserved. This information is not intended as a substitute for professional medical care. Always follow your healthcare professional's instructions. documented in this encounter Progress Notes * Sandra Richards RTR - 12/17/2020 8:15 AM CDT Josephine Alejandre complains of Sore throat and chills x 4 days. Pt has been taking tylenol. Sore Throat This is a new problem. The current episode started in the past 7 days. The problem has been gradually worsening. The pain is worse on the right side. The pain is at a severity of 5/10. The pain is mild. Associated symptoms include ear pain. Today's Review of Systems Constitutional: Positive for chills. HENT: Positive for ear pain and sore throat. * Anya Snow CMA - 12/17/2020 8:15 AM CDT Per order of Esperanza Colon APN, BIANCA Bilateral nasal swab collected for POCT Covid. Throat swab collected for POCT Strep Throat. Covid swab sent to [facility] for PCR. Patient tolerated both well. * Esperanza Colon APN, ADVANCED PRACTICE REGISTERED NURSE - 12/17/2020 8:15 AM CDT Subjective: Chief complaint, ROS, and all history documented by ancillary staff, and any copy/pasted information were reviewed and verified, with additions or corrections, as appropriate. Available past family, social, medical history was reviewed. Possible fevers Had 1st pfiser covid vaccine at the beginning of the month. No previous covid diagnosis. Review of Systems Constitutional: Positive for chills and fatigue. HENT: Positive for sore throat. Gastrointestinal: Positive for diarrhea. Musculoskeletal: Body aches Neurological: Positive for headaches. Objective: Physical Exam Vitals and nursing note reviewed. Constitutional: General: She is not in acute distress. HENT: Right Ear: Tympanic membrane and ear canal normal. Left Ear: Tympanic membrane and ear canal normal. Mouth/Throat: Pharynx: Posterior oropharyngeal erythema (mild) present. No oropharyngeal exudate. Cardiovascular: Rate and Rhythm: Normal rate. Pulmonary: Effort: Pulmonary effort is normal. Breath sounds: Normal breath sounds. Neurological: Mental Status: She is alert. Vitals: 12/17/20 0821 BP: 118/74 Pulse: 94 Resp: 20 Temp: 98.4 ??F (36.9 ??C) TempSrc: Oral SpO2: 99% Weight: 140 lb (63.5 kg) Height: 5' 2 (1.575 m) Assessment and Plan See Diagnoses, Orders, Follow-up, and Instructions Diagnoses and all orders for this visit: Acute nonintractable headache, unspecified headache type Comments: tylenol or motrin as needed for pain. follow dosage directions on package. Orders: - SARS-COV-2 BY MOLECULAR; Future - SARS-COV-2 BY MOLECULAR Sore throat Comments: salt water gargles, throat lozenges, or chloroseptic throat spray as needed for sore throat. Orders: - POCT SARS ANTIGEN PAPI - POCT GROUP A STREP SCREEN RAPID - SARS-COV-2 BY MOLECULAR; Future - SARS-COV-2 BY MOLECULAR Body aches - SARS-COV-2 BY MOLECULAR; Future - SARS-COV-2 BY MOLECULAR Viral illness COVID RAPID was NEGATIVE today. COVID PCR was sent to the lab. You will be notified of the results. Continue to monitor the symptoms If you have had close positive exposure (family member) it is advised that you self quarantine as recommended by the CDC. If you experience worsening of symptoms go to the ER for evaluation. You may follow up with PCP if symptoms do not improve. Care at home: Comfort care: Tylenol or ibuprofen for fever or body aches. Decongestants for congestion: such as flonase nasal spray, nasacort nasal spray, or an allergy medication such as zytrec. Mucinex for congestion Delysm or robitussin for the cough. You can even try honey with hot tea or on its own. Jass vapo rub on chest or feet at night Cool mist vaporizer at night in bedroom Increase fluid intake See family doctor if symptoms worsen or fail to resolve. AVS from today was printed, discussed with patient/family and given to patient/family documented in this encounter Plan of Treatment [...] Procedure Name Priority Date/Time Associated Diagnosis Comments SARS-COV-2 BY MOLECULAR Routine 12/17/2020 9:00 AM CDT Sore throat Body aches Acute nonintractable headache, unspecified headache type POCT SARS ANTIGEN PAPI Routine 12/17/2020 8:58 AM CDT Sore throat POCT GROUP A STREP SCREEN RAPID Routine 12/17/2020 8:45 AM CDT Sore throat documented in this encounter Results * SARS-COV-2 BY MOLECULAR (12/17/2020 9:00 AM CDT) SARSCOV2 NOT DETECTED (Referen ce Range for this test is Not Detected ) [facility] THERMOFISHER FAST DX 12/18/2020 12:54 PM CDT [facility] Comment:This test was perfor med by a RT-PCR method. Other NASAL STRUCTURE / Unknown Non-Phlebotomy Collection / Unknown 12/17/2020 9:00 AM CDT 12/17/2020 9:00 AM CDT Narrative [facility] - 12/18/2020 12:54 PM CDT Authorized Fact Sheets about this test for providers and patients are available at: https://www.fda.gov/medical-devices/cqvogydmp-ksrywkuela-jxiqjnd-devices/emergen -us e-authorizations Esperanza Colon APRN, CNP MICROBIOLOGY - GE NERAL ORDERABLES Final Result [facility] [address] [place] [address], * POCT SARS ANTIGEN PAPI (12/17/2020 8:58 AM CDT) POC SARS ANTIGEN PAPI Negative Negative POC SARS ANTIGEN PAPI CONTROL House Player Pass Swab NASAL STRUCTURE / Unknown 12/17/2020 8:58 AM CDT us Esperanza A Schrumpf SALES AND OPERATIONS TRAINEE, ADVANCED PRACTICE REGISTERED NURSE POINT OF CARE BRIAN TING (MANUAL) Final Result * POCT GROUP A STREP SCREEN RAPID (12/17/2020 8:45 AM CDT) POC STREP SCRN Presumptive negative POC STREP SCREEN CONTROL House Player Pass 12/17/2020 8:45 AM CDT Esperanza Pedro Flaviorumpf SALES AND OPERATIONS TRAINEE, ADVANCED PRACTICE REGISTERED NURSE POINT OF CARE BRIAN TING (MANUAL) Final Result documented in this encounter Visit Diagnoses Diagnosis Acute nonintractable headache, unspecified headache type- Primary Sore throat Acute pharyngitis Body aches Generalized pain Viral illness Unspecified viral infection, in conditions classified elsewhere and of unspecified site documented in this encounter Additional Health Concerns Assessment Noted Time PHQ-9 Depression Total Score: 15 021 3:00 PM DIRECTOR FINANCIAL SYSTEMS documented as of this encounter Care Teams Property Field Inspector Relationship Specialty Start Date End Date Nubia Brown PAC [address] [place] [address] PCP - General Physician Cashier Ticket Selling 08/13/20 03/01/23 documented as of this encounter
--- OUTSIDE RECORDS SUMMARY | 2024-08-30 03:03 | XMS_ITS | Encounter Summary ---
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 Yes 09/17/2020 2:58 PM BURNISHER documented as of this encounter Plan of Treatment Not on file documented as of this encounter Goals Goal Patient Goal Type Associated Problems Recent Progress Patient-Stated? Author Behavioral Health Behavioral Health Yes Traci Romero, REFRIGERATION INSULATOR Note: I just need to be able to handle this and talk to someone. will gain insight regarding impact of trauma and gain relief from traumatic stress. Goal Reviewed with: patient Readiness to change: Ready to change Department associated with goal: [facility] Steps to achieve goal: will share personal trauma story in counseling/psychotherapy sessions. will learn/identify how trauma has impacted personal life, physical health and behavioral health. will identify and practice, at least two, skills/activities/routines, to gain relief from the impact of trauma. Behavioral Health Behavioral Health Traci Howe, REFRIGERATION INSULATOR Note: Carlene will report a decrease in symptoms of depression to have reduction of depression symptoms. Goal Reviewed with: patient Readiness to change: Ready to change Department associated with goal: [facility] Steps to achieve goal: [...] Depression Total Score: 15 021 3:00 PM BURNISHER documented as of this encounter Care Teams Rock Picker Relationship Specialty Start Date End Date Nubia Brown PAC [address] [place] [address] PCP - General Physician Strapper 08/13/20 03/01/23 documented as of this encounter
--- OUTSIDE RECORDS SUMMARY | 2024-08-30 03:03 | XMS_ITS | Encounter Summary ---
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 will gain insight regarding impact of trauma and gain relief from traumatic stress. Goal Reviewed with: patient Readiness to change: Ready to change Department associated with goal: [facility] Steps to achieve goal: will share personal trauma story in counseling/psychotherapy sessions. will learn/identify how trauma has impacted personal life, physical health and behavioral health. will identify and practice, at least two, skills/activities/routines, to gain relief from the impact of trauma. Behavioral Health Behavioral Health Traci Howe, RELINER Note: Carlene will report a decrease in symptoms of depression to have reduction of depression symptoms. Goal Reviewed with: patient Readiness to change: Ready to change Department associated with goal: [facility] Steps to achieve [...] Depression Total Score: 15 021 3:00 PM REPULPING SUPERVISOR documented as of this encounter Care Teams Heavy Mobile Equipment Operator Relationship Specialty Start Date End Date Nubia Brown PAC [address] [place] [address] PCP - General Physician Coupon Redemption Clerk 08/13/20 03/01/23 documented as of this encounter
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
--- OUTSIDE RECORDS SUMMARY | 2024-08-30 03:03 | XMS_ITS | Encounter Summary ---
Author Organization [facility] Address [address] 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 No / Unsure 08/13/2020 10:40 AM STRUCTURES ASSEMBLER documented as of this encounter Plan of Treatment Not on file documented as of this encounter Visit Diagnoses Not on filedocumented in this encounter Additional Health Concerns Assessment Noted Time PHQ-9 Depression Total Score: 22 020 11:00 AM STRUCTURES ASSEMBLER documented as of this encounter Care Teams Supervisor Insecticide Relationship Specialty Start Date End Date Nubia Brown PAC [address] [place] [address] PCP - General Physician Area Representative 08/13/20 03/01/23 documented as of this encounter
--- OUTSIDE RECORDS SUMMARY | 2024-08-30 03:03 | XMS_ITS | Encounter Summary ---
Author Organization [facility] Address [address] 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 No / Unsure 08/13/2020 10:40 AM PRESIDENT [facility]UCATIONAL [facility]STITUTION documented as of this encounter Miscellaneous Notes * Telephone Encounter - GeorgeDanisha - 08/28/2020 2:14 PM CST ----- Message from Lilliam Arroyo sent at 08/28/2020 2:07 PM [facility] ----- Regarding: cxd Same day cxd#patient states she was around her family member who just tested positive for Covid-19 and wants to call back to reschedule eval IDENT EDUCATIONAL INSTITUTION documented in this encounter Plan of Treatment Not on file documented as of this encounter Visit Diagnoses Not on filedocumented in this encounter Additional Health Concerns Assessment Noted Time PHQ-9 Depression Total Score: 22 020 11:00 AM [facility] documented as of this encounter Care Teams Rehab Care Assistant Relationship Specialty Start Date End Date Nubia Brown PAC [address] [place] [address] PCP - General Physician Supply Chain Generalist 08/13/20 03/01/23 documented as of this encounter
--- OUTSIDE RECORDS SUMMARY | 2024-08-30 03:03 | XMS_ITS | Encounter Summary ---
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 will gain insight regarding impact of trauma and gain relief from traumatic stress. Goal Reviewed with: patient Readiness to change: Ready to change Department associated with goal: [facility] BE[facility]AVIORAL HE[facility] SERVICES Steps to achieve goal: will share personal trauma story in counseling/psychotherapy sessions. will learn/identify how trauma has impacted personal life, physical health and behavioral health. will identify and practice, at least two, skills/activities/routines, to gain relief from the impact of trauma. Behavioral Health Behavioral Health Traci Howe, LABELER Note: Carlene will report a decrease in symptoms of depression to have reduction of depression symptoms. Goal Reviewed with: patient Readiness to change: Ready to change Department associated with goal: [facility] Steps to achieve goal: [...] filedocumented in this encounter Additional Health Concerns Infection Onset Date Last Indicated Resolved Time COVID - 19 12/17/2020 12/17/2020 12/19/2020 8:14 AM CDT Assessment Noted Time PHQ-9 Depression Total Score: 15 09/17/ 021 3:00 PM PRESSURISED CONTAINER FILLER documented as of this encounter Care Teams Rubber Gasket Inspector Trimmer Relationship Specialty Start Date End Date Nubia Brown PAC [address] [place] [address] PCP - General Physician Ropeman 08/13/20 03/01/23 documented as of this encounter
--- OUTSIDE RECORDS SUMMARY | 2024-08-30 03:03 | XMS_ITS | Encounter Summary ---
Author Organization [facility] Address [address] 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 No / Unsure 12/20/2020 1:17 PM CDT documented as of this encounter Miscellaneous Notes * Telephone Encounter - Aisha Helm, RN - 12/21/2020 1:33 PM CDT Called and spoke with patient regarding results Notified patient she has mono. Verbalize understanding.Instructed patient that it was viral and to treat symptoms. If no improvement in a week or two to notify PCP. * Telephone Encounter - Aisha Helm, RN - 12/21/2020 1:33 PM CDT ----- Message from LISA Bradford sent at 12/21/2020 9:01 AM CDT ----- Notify patient she has mono documented in this encounter Plan of Treatment [...] change Department associated with goal: [facility] BE[facility]AVIORAL HEALTH SERVICES Steps to achieve goal: will share personal trauma story in counseling/psychotherapy sessions. will learn/identify how trauma has impacted personal life, physical health and behavioral health. will identify and practice, at least two, skills/activities/routines, to gain relief from the impact of trauma. Behavioral Health Behavioral Health No Traci Romero, FITTER/WELDER Note: Carlene will report a decrease in symptoms of depression to have reduction of depression symptoms. Goal Reviewed with: patient Readiness to change: Ready to change Department associated with goal: [facility] BE[facility]AVIORAL HEALTH SERVICES Steps to [...] Depression Total Score: 15 021 3:00 PM ROTARY PLANER SET UP OPERATOR documented as of this encounter Care Teams Toy Assembler Relationship Specialty Start Date End Date Nubia Brown PAC [address] [place] [address] PCP - General Physician Creel Hand 08/13/20 03/01/23 documented as of this encounter
--- OUTSIDE RECORDS SUMMARY | 2024-08-30 03:03 | XMS_ITS | Encounter Summary ---
Author Organization [facility] Care Team Providers Care Analytical Chemist Name Role Phone Nubia Brown Primary Care Provider + Encounter Details Date Type Department Care Team (Latest Contact Info) Description 08/13/2020 Travel Social History Tobacco Use Types Packs/Day [...] COVID-19? No / Unsure 08/13/2020 10:40 AM PEER COUNSELOR documented as of this encounter Plan of Treatment Not on file documented as of this encounter Visit Diagnoses Not on filedocumented in this encounter Additional Health Concerns Assessment Noted Time PHQ-9 Depression Total Score: 22 020 11:00 AM PEER COUNSELOR documented as of this encounter Care Teams Analytical Chemist Relationship Specialty Start Date End Date Nubia Brown PAC [address] [place] [address] PCP - General Physician Model Builder 08/13/20 03/01/23 documented as of this encounter
--- OUTSIDE RECORDS SUMMARY | 2024-08-30 03:03 | XMS_ITS | Encounter Summary ---
Author Organization [facility] Address [address] [place] [place] [address] Phone Care Team Providers Care Enterprise Project Manager Name Role Phone Nubia Brown Primary Care Provider + Provider, None Primary Care Provider Unavailabl e Reason for Visit * Reason Comments Medication Refill Encounter Details Date Type Department Care Team (Late st Contact Info) Description 09/13/2020 Refill [facility] - [facility] [address] [place] [address] Nubia Brown PAC [address] [place] [address] Medication Refill Social History Tobacco Use Types Packs/Day Years Used Date Smoking Tobacco: Never Smokeless Tobacco: Never PHQ-2 Answer Date Recorded Total Score - [...] 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 Requested Prescriptions Pending Prescriptions Disp Refills hydrOXYzine (ATARAX) 50 MG Tablet [Pharmacy Med Name: HYDROXYZINE HCL 50 MG TABLET] 30 Tab 0 Sig: TAKE 1-2 TABLETS BY ORAL ROUTE AT BEDTIME NEEDED FOR SLEEP Gastroenterology: Antiemetics Passed - 09/13/2020 9:06 AM Passed - Valid encounter within last 12 months Past Office Visits Recent Outpatient Visits 1 month ago Chronic right-sided low back pain, unspecified whether sciatica present [facility] - Family Medicine - Nubia Mars PAC Upcoming Appointments Future Appointments In 4 days Traci Romero LCSW [facility] Behavioral Health Services, [facility] Arrive at: Virtual Visit COMPOSITION WEATHERBOARD INSTALLER - Recent and Past Visits Recent Visits Date Type Provider Dept 08/13/20 Office Visit Nubia Brown PAC [facility] Showing recent visits within past 460 days with a meds authorizing provider and meeting all other requirements Future Appointments No visits were found meeting these conditions. Showing future appointments within next 90 days with a meds authorizing provider and meeting all other requirements S RECEPTIONIST documented in this encounter Plan of Treatment Not on file documented as of this encounter Visit Diagnoses Diagnosis Insomnia, unspecified type documented in this encounter Additional Health Concerns Infection Onset Date Last Indicated Resolved Time COVID - 19 12/17/2020 12/17/2020 12/19/2020 8:14 AM CDT Assessment Noted Time PHQ-9 Depression Total Score: 22 020 11:00 AM SALES RECEPTIONIST documented as of this encounter Care Teams Enterprise Project Manager Relationship Specialty Start Date End Date Nubia Brown PAC [address] [place] [address] PCP - General Physician Well Logging Captain Mud Analysis 08/13/20 03/01/23 Provider, None [place] PCP - General 03/15/23 documented as of this encounter
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
--- OUTSIDE RECORDS SUMMARY | 2024-08-30 03:05 | XMS_ITS | Encounter Summary ---
Author Organization [facility] Address [address] [place] [address] Care Team Providers Care Area Cleaner Name Role Phone Laura Sanders MD Primary Care Provider [phone] Encounter Details Date Type Department Care Team (Late st Contact Info) Description 11/01/2013 9:27 AM CDT - 11/01/2013 11:59 PM CDT Hospital Encounter [facility] Laura Sanders MD [address] [place] [address] [address] Abdominal pain Social History Tobacco Use Types Packs/Day Years Used Date Smoking Tobacco: Never Assessed Comments Unknown Sex and Gender Information Value Date Recorded Sex Assigned at Not on file 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 Gender Identity Not on file Sexual Orientation Not on file documented as of this encounter Plan of Treatment Not on file documented as of this encounter Procedures Procedure Name Priority Date/Time Associated Diagnosis Comments US PELVIS COMPLETE Routine 11/01/2013 12 :54 PM CDT ABDOMINAL SONOGRAPHY, RIGHT UPPER QUADRANT (RUQ) Routine 11/01/2013 10:31 AM CDT documented in this encounter Results * US Pelvis Complete (11/01/2013 12:54 PM CDT) Anatomical Region Laterality Modality Pelvis N/A Ultrasound 11/01/2013 12:5 4 PM CDT Narrative 11/01/2013 3:29 PM CDT US Pelvis ??Acc#: ??[id number] DATE OF EXAM: ??Nov 01 2013 CLINICAL HISTORY: Abdominal pain. RESULT: Transabdominal pelvic ultrasound was performed. The uterus measures 8.2x4.0x6.1cm. ??The EMC measures 10.7mm which is normal. ??Neither ovary was seen. ??The patient refused a transvaginal exam. IMPRESSION: NEITHER OVARY SEEN. ??THE PATIENT REFUSED A TRANSVAGINAL EXAM WHICH MAY HAVE IDENTIFIED THE OVARIES. ??NO ACUTE FINDINGS ARE NOTED. Interpreting Physician: ??STAR ARNETT M.D. ??Read on: ??Nov 01 2013 3:26P Transcribed by: ??alessia ?? On: Nov 01 2013 ??3:26P Approved Electronically by: ??STAR ARNETT M.D. ??on: ??Nov 01 2013 3:29P Ordering DR: DR LAURA SANDERS Attending DR: DR LAURA SANDERS Procedure Note Provider, MD Tino - 12/26/2016 US Pelvis Acc#: [id number] DATE OF EXAM: Nov 01 2013 CLINICAL HISTORY: Abdominal pain. RESULT: Transabdominal pelvic ultrasound was performed. The uterus measures8.2x4.0x6.1cm. The EMC measures 10.7mm which is normal. Neither ovarywas seen. The patient refused a transvaginal exam. IMPRESSION: NEITHER OVARY SEEN. THE PATIENT REFUSED A TRANSVAGINAL EXAM WHICH MAYHAVE IDENTIFIED THE OVARIES. NO ACUTE FINDINGS ARE NOTED. Interpreting Physician: STAR ARNETT M.D. Read on: Nov 01 20133:26P Transcribed by: alessia On: Nov 01 2013 3:26P Approved Electronically by: STAR ARNETT M.D. on: Nov 01 20133:29P Ordering DR: DR LAURA SANDERS Attending DR: DR LAURA SANDERS us Historical Provider MD CR US PROCEDURES Final R esult * ABDOMINAL SONOGRAPHY, RIGHT UPPER QUADRANT (RUQ) (11/01/2013 10:31 AM CDT) Anatomical Region Laterality Modality Right Ultrasound 11/01/2013 10:3 1 AM CDT Narrative 11/01/2013 3:29 PM CDT US Abd Comp ??Acc#: ??[id number] DATE OF EXAM: ??Nov 01 2013 CLINICAL HISTORY: Abdominal pain. RESULT: Transverse and longitudinal images of the abdomen were obtained. The pancreas is obscured by bowel gas. The included portions of the aorta and IVC reveal no abnormalities. ??The liver is normal in size and demonstrates normal echogenicity. ??No gallstones, gallbladder wall thickening or pericholecystic fluid are seen. The common bile duct measures 3mm in diameter. ??The right kidney measures 9.2x4.4x5.1cm. The left kidney measures 11.0x5.7x5.0cm. ??No suspicious renal lesions or nephroliths are seen. ??The spleen is normal in size and demonstrates normal echogenicity. IMPRESSION: 1. NORMAL ABDOMINAL ULTRASOUND. Interpreting Physician: ??STAR ARNETT M.D. ??Read on: ??Nov 01 2013 3:24P Transcribed by: ??alessia ?? On: Nov 01 2013 ??3:24P Approved Electronically by: ??STAR ARNETT M.D. ??on: ??Nov 01 2013 3:29P Ordering DR: DR LAURA SANDERS Attending DR: DR LAURA SANDERS Procedure Note Provider, MD Tino - 12/26/2016 US Abd Comp Acc#: [id number] DATE OF EXAM: Nov 01 2013 CLINICAL HISTORY: Abdominal pain. RESULT: Transverse and longitudinal images of the abdomen were obtained. Thepancreas is obscured by bowel gas. The included portions of the aorta andIVC reveal no abnormalities. The liver is normal in size and demonstratesnormal echogenicity. No gallstones, gallbladder wall thickening orpericholecystic fluid are seen. The common bile duct measures 3mm indiameter. The right kidney measures 9.2x4.4x5.1cm. The left kidneymeasures 11.0x5.7x5.0cm. No suspicious renal lesions or nephroliths areseen. The spleen is normal in size and demonstrates normalechogenicity. IMPRESSION: 1. NORMAL ABDOMINAL ULTRASOUND. Interpreting Physician: STAR ARNETT M.D. Read on: Nov 01 20133:24P Transcribed by: alessia On: Nov 01 2013 3:24P Approved Electronically by: STAR ARNETT M.D. on: Nov 01 20133:29P Ordering DR: DR LAURA SANDERS Attending DR: DR LAURA SANDERS us Historical Provider MD CR US PROCEDURES Final R esult documented in this encounter Visit Diagnoses Diagnosis Abdominal pain Abdominal pain, unspecified site documented in this encounter Care Teams Area Cleaner Relationship Specialty Start Date End Date Laura Sanders MD PCP - General 09/13/13 11/20/16 documented as of this encounter
--- OUTSIDE RECORDS SUMMARY | 2024-08-30 03:05 | XMS_ITS | Encounter Summary ---
Author Organization [facility] Address [address] [facility] [address] [place] [address] Care Team Providers Care Rug Renovator Name Role Phone Laura Reid MD Primary Care Provider [phone] Reason for Visit * Reason Comments Pain Encounter Details Date Type Department Care Team (Latest Contact Info) Description 02/23/2018 8:30 AM CDT Office Visit [facility] Orthopedics and Sports Medicine [address] [place] [phone] Nel Carbajal MD [address] [place], [place] [id number] Closed dislocation of right patella, initial encounter (Primary Dx) Social History Tobacco Use Types Packs/Day Years Used Date Smoking Tobacco: Never Smokeless Tobacco: Never Comments Unknown Sex and Gender Information Value Date Recorded Sex Assigned at Not on file 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 Gender Identity Not on file Sexual Orientation Not on file documented as of this encounter Last Filed Vital Signs Vital Sign Reading Time Taken Comments Blood Pressure 123/78 02/23/2018 8:23 AM CDT Pulse 77 02/23/2018 8:23 AM CDT Temperature - - Respiratory Rate - - Oxygen Saturation - - Inhaled Oxygen Concentration - - Weight 73.9 kg (163 lb) 02/23/2018 8:23 AM CDT Height 157.5 cm (5' 2 ) 02/23/2018 8:23 AM CDT Body Mass Index 29.81 02/23/2018 8:23 AM CDT documented in this encounter Progress Notes * Hossein Sue, BARTOLO - 02/23/2018 8:30 AM CDT NEW PATIENT VISIT Subjective CHIEF COMPLAINT She had concerns including Pain of the Right Knee. HISTORY OF PRESENT ILLNESS Josephine presents today with c/o right knee dislocation which occurred 3 weeks ago when she planted her foot and turned to her left. Her kneecap dislocated, she was taken to [facility] via EMS and a closed reduction was performed. He has been using an Govind wrap, did not get a knee brace when she was [facility]. Swelling has improved, she started walking more normal 2 days ago, but still favors her right knee. She states she is nervous and uncertain about what she can do. Denies numbness and tingling. Taking ibuprofen as needed. Pain is dull, aching, mild, activity related. Bendingher knee often makes the pain worse, resting, taking things easy makes the pain better. Pain Assessment Pain Assessment: 0-10 Pain Score: 4 Pain Location: Knee Pain Orientation: Right Pain Descriptors: Aching, Dull Pain Frequency: Intermittent Pain Onset: Sudden Date Pain First Started: 02/06/18 Clinical Progression: Gradually improving Aggravating Factors: Walking Result of Injury: Yes Work-Related Injury: No Pain Interventions: Medication (See MAR) PAST MEDCIAL HISTORY She has a past medical history of Anemia; Depression; Endometritis; Headache(784.0); OTHER MEDICAL;and OTHER MEDICAL. PAST SURGICAL HISTORY She has no past surgical history on file. MEDICATIONS She has a current medication list which includes the following prescription(s): citalopram, hydroxyzine, lamictal, and levora-28. ALLERGIES She is allergic to topamax [topiramate]. SOCIAL HISTORY She reports that she has never smoked. She has never used smokeless tobacco. FAMILY HISTORY Her Family history is unknown by patient. REVIEW OF SYSTEMS Review of Systems Constitutional: Positive for appetite change. Negative for activity change, chills and fever. HENT: Negative. Negative for congestion, dental problem, ear pain, hearing loss and voice change. Eyes: Negative. Negative for pain and visual disturbance. Respiratory: Negative. Negative for apnea, cough, chest tightness and shortness of breath. Cardiovascular: Negative. Negative for chest pain, palpitations and leg swelling. Gastrointestinal: Negative. Negative for blood in stool, constipation, diarrhea, nausea and vomiting. Endocrine: Negative for cold intolerance and heat intolerance. Genitourinary: Negative. Negative for difficulty urinating and hematuria. Musculoskeletal: Positive for joint swelling. Skin: Negative. Negative for color change, rash and wound. Allergic/Immunologic: Negative for environmental allergies. Neurological: Negative. Negative for dizziness, syncope, numbness and headaches. Hematological: Negative for adenopathy. Does not bruise/bleed easily. Psychiatric/Behavioral: Negative for confusion. The patient is nervous/anxious. The patient is not hyperactive. All other systems reviewed and are negative. Objective PHYSICAL EXAM BP 123/78 Pulse 77 Ht 157.5 cm (5' 2 ) Wt 73.9 kg (163 lb) BMI 29.81 kg/m?? Right knee Inspection Gait: antalgic Palpation The patient has normal palpation of the right knee. Subluxation: negative Range of motion The patient has normal range of motion of the right knee. Stability The patient has normal AP and ML stability of the right knee. Strength Knee extension: 4/5 Knee flexion: 4/5 Hip abductor: 4/5 Neurovascular The patient has normal vascular on the right side of their body. The patient has normal sensation on the right side of their body. Left knee The patient has normal inspection, palpation, range of motion, strength, and stabiltiy of the left knee. REVIEW OF X-RAYS/STUDIES/LABS Xray right knee [facility] 02/06/2018 Images not available for my review, per report, alignment normal, no fracture. No joint effusion/layering lipohemarthrosis. Soft tissues are unremarkable. Assessment/Plan Josephine was seen today for pain. Diagnoses and all orders for this visit: Closed dislocation of right patella, initial encounter Procedures PLAN Reviewed xray report with Josephine. Recommend Trupull knee brace with activities and until she has gained strength and confidence in her knee. Continue ibuprofen as needed. Ice for 20 minutes as needed for pain and swelling. Referred to [facility] in [place] for further evaluation and treatment. RTC in 6 weeks for repeat evaluation, sooner if symptoms get worse. She is in full understanding and in ag reement with the plan, and all of her questions were answered. BARTOLO Ta MD documented in this encounter Miscellaneous Notes * Addendum Note - Hossein Sue ATC - 02/23/2018 8:30 AM CDTAddended by: HOSSEIN SUE on: 02/23/2018 09:44 AM Modules accepted: Orders documented in this encounter Plan of Treatment Not on file documented as of this encounter Visit Diagnoses Diagnosis Closed dislocation of right patella, initial encounter- Primary documented in this encounter Care Teams Rug Renovator Relationship Specialty Start Date End Date Laura Reid MD PCP - General 11/21/16 10/03/20 documented as of this encounter
--- OUTSIDE RECORDS SUMMARY | 2024-08-30 03:05 | XMS_ITS | Encounter Summary ---
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 elevated by as much as 1.1-1.6 mmol/L. Suggest redraw and reanalysis. Chloride 100 97 - 110 mmol/L [facility] CO2 26 22 - 32 mmol/L [facility] Anion gap 15 2 - 15 mmol/L [facility] BUN 10 8 - 25 mg/dL [facility] Creatinine 0.85 0.60 - 1.10 mg/dL [facility] Glucose 107 70 - 199 mg/dL [facility] Comment: Interpretive Data Fasting glucose >/= 126 mg/dl is diagnostic for diabetes. ?? Fasting is defined as no caloric intake for at least 8 hours. Fasting glucose between 100 mg/dl to 125 mg/dl is diagnostic of prediabetes. In a patient with classic symptoms of hyperglycemia or hyperglycemic crisis, a random glucose >/= 200 mg/dl is diagnostic for diabetes. In the absence of unequivocal hyperglycemia, results should be confirmed by repeat testing. The classification and Diagnosis of Diabetes Diabetes Care 2021; 46: S19-S40. Current interpretive data was last revised 2022. Calcium 10.0 8.5 - 10.3 mg/dL [facility] Bilirubin, total 0.2 0.1 - 1.2 mg/dL [facility] Protein, pl 8.2 6.5 - 8.5 g/dL [facility] Albumin 4.7 3.5 - 5.0 g/dL [facility] Alk phos 85 40 - 130 Units/L [facility] Comment:Hemolyzed; result ma y be falsely decreased ALT 16 7 - 45 Units/L [facility] AST 39 10 - 45 Units/L [facility] Comment:Hemolyzed; result ma y be falsely elevated Blood 10/12/2022 11:1 2 PM LEAD MINER 10/12/2022 11:42 PM LEAD MINER Nohelia Jasso MD LAB BLOOD ORDERABLES Final Resul t Performing Organization Address [facility] de Phone Number [facility] Department [place] [address] * (ABNORMAL) CBC with auto differential (10/12/2022 11:12 PM LEAD MINER) WBC 14.6(H) 3.8 - 9.9 K/cumm [facility] Hgb 12.8 11.9 - 15.5 g/dL [facility] Hct 39.1 35.6 - 45.5 % [facility] Plt 379 150 - 400 K/cumm [facility] MPV 10.5 9.1 - 12.3 fL [facility] RBC 4.03 3.90 - 5.20 M/cumm [facility] MCV 97.0(H) 81.3 - 96.4 fL [facility] MCH 31.8 27.1 - 33.3 pg [facility] MCHC 32.7 32.3 - 35.7 g/dL [facility] RDW CV 13.3 11.1 - 14.9 % [facility] RDW SD 47.5 35.7 - 48.1 fL [facility] NRBC abs 0.00 0.00 - 0.01 K/cumm [facility] Blood (Blood, Venous) 10/12/2022 11:12 PM LEAD MINER 10/12/2022 11:42 PM LEAD MINER Nohelia Jasso MD LAB BLOOD ORDERABLES Final Resul t Performing Organization Address [facility] Co de Phone Number [facility] Department [place] [address] documented in this encounter Visit Diagnoses Diagnosis Suicidal ideation- Primary Acute cystitis without hematuria Abdominal pain Abdominal pain, unspecified site Nausea and vomiting, unspecified vomiting type documented in this encounter Administered Medications Inactive Administered Medications - up to 3 most recent administrations Medication Order MAR Action Action Date Dose Rate Site capsaicin (ZOSTRIX) 0.025 % cream topical, Once, On Thu10/13/22 at 0045, For 1 dose, Apply to affected area: abdomen Given 10/13/2022 2:04 AM LEAD MINER droperidoL (INAPSINE) injection 1.25 mg 1.25 mg, intramuscular, Administer over 5 Minutes, Once, On Thu10/13/22 at 0047, For 1 dose Given 10/13/2022 12:53 AM LEAD MINER 1.25 mg Left Deltoid nitrofurantoin monohydrate (MACROBID) capsule 100 mg 100 mg, oral, 2 times daily, First dose on Thu10/13/22 at 0900, Take with food, Indications: Urinary Tract/Genitourinary InfectionIndications:Urinary Tract/Genitourinary Infection ondansetron ODT (ZOFRAN-ODT) disintegrating tablet 4 mg 4 mg, oral, Every 4 hours PRN, nausea, vomiting, Starting on Thu10/13/22 at 0012, For 6 doses Given 10/13/2022 12:14 AM LEAD MINER 4 mg documented in this encounter Active and Recently Administered Medications Times are shown in LEAD MINER. Scheduled Medication Order 10/11/2022 10/12/2022 10/13/2022 capsaicin (ZOSTRIX) 0.025 % cream (COMPLETED) topical, Once, On Thu10/13/22 at 0045, For 1 dose, Apply to affected area: abdomen 0204 (Given - Provid er: Cheryl Stevenson, JALEN - Comment: waiting for pharm) droperidoL (INAPSINE) injection 1.25 mg (COMPLETED) 1.25 mg, intramuscular, Administer over 5 Minutes, Once, On Thu10/13/22 at 0047, For 1 dose 0053 (Given - Provid er: Cheryl Stevenson, JALEN) nitrofurantoin monohydrate (MACROBID) capsule 100 mg 100 mg, oral, 2 times daily, First dose on Thu10/13/22 at 0900, Take with food, Indications: Urinary Tract/Genitourinary Infection PRN Medication Order 10/11/2022 10/12/2022 10/13/2022 ondansetron ODT (ZOFRAN-ODT) disintegrating tablet 4 mg 4 mg, oral, Every 4 hours PRN, nausea, vomiting, Starting on 2/20/23 at 0012, For 6 doses 0014 (Given - Provid er: Cheryl Stevenson RN) documented in this encounter Orders Medications Ordered That Keshav ht Not Have Been Administered Count Last Ordered Date First Ordered Date droperidoL (INAPSINE) injection 2.5 mg 1 nitrofurantoin monohydrate ( MACROBID) capsule 100 mg 1 10/13/2022 Lab Orders Without Results Count Last Ordered D ate First Ordered Date ETHANOL 1 10/12/2022 TSH REFLEX TO FREE T4 1 10/12/2022 Nursing Count Last Ordered Date First Orde red Date MISCELLANEOUS NURSING CARE ORDER (SPECIFY) 2 10/12/2022 PSYCH MEDICAL BED 1 10/12/2022 Consult Count Last Ordered Date First Orde red Date IP CONSULT TO PSYCHIATRY 1 10/12/2022 IV Count Last Ordered Date First Orde red Date SALINE LOCK IV 1 10/12/2022 documented in this encounter Care Teams Hand Tenn[employer] Relationship Specialty Start Date End Date Nubia Brown PA [address] [id number] PCP - General 10/04/20 documented as of this encounter
--- OUTSIDE RECORDS SUMMARY | 2024-08-30 03:05 | XMS_ITS | Encounter Summary ---
Author Organization [facility] Facility Care Team Providers Care Toddler Caregiver Name Role Phone Laura Reid MD Primary Care Provider [phone] Encounter Details Date Type Department Care Team (Latest Contact Info) Description 11/08/2013 10:54 AM CDT - 11/08/2013 3:52 PM CDT Hospital Encounter [facility] [place] [address] [address] [address] [place] [address] Abdominal pain; Other depressive disorder; Anxiety state Social History Tobacco Use Types Packs/Day Years Used Date Smoking Tobacco: Never Assessed Comments Unknown Sex and Gender Information Value Date Recorded Sex Assigned at Not on file 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 Gender Identity Not on file Sexual Orientation Not on file documented as of this encounter Plan of Treatment Not on file documented as of this encounter Procedures Procedure Name Priority Date/Time Associated Diagnosis Comments ABDOMINAL RADIOGRAPHY, FRONTAL (AP) Routine 11/08/2013 2:45 PM CDT URINE MICROSCOPY Routine 11/08/2013 2:02 PM CDT URINE CHORIONIC GONADOTROPIN (HCG) Routine 11/08/2013 2:02 PM CDT URINALYSIS Routine 11/08/2013 2:02 PM CDT SERUM LIPASE Routine 11/08/2013 12:55 PM CDT SERUM C-REACTIVE PROTEIN, HIGH SENSITIVITY Routine 11/08/2013 12:55 PM CDT PLASMA COMPREHENSIVE METABOLIC PANEL Routine 11/08/2013 12:55 PM CDT PLASMA AMYLASE Routine 11/08/2013 12:55 PM CDT BLOOD WBC CELL MORPHOLOGIC EXAM, AUTO Routine 11/08/2013 12:55 PM CDT BLOOD ERYTHROCYTE SEDIMENTATION RATE (ESR) Routine 11/08/2013 12:55 PM CDT BLOOD CELL COUNT (CBC) Routine 4 12:[address] HEAD WO CONTRAST Routine 11/08/2013 1 2:27 PM CDT SERUM MONONUCLEOSIS AB Routine 4 7:55 AM CDT DISCHARGE LABORATORY CUMULATIVE REPORT Routine 11/08/2013 12:00 AM CDT documented in this encounter Results * ABDOMINAL RADIOGRAPHY, FRONTAL (AP) (11/08/2013 2:45 PM CDT) Anatomical Region Laterality Modality N/A Radiographic Radha ging 11/08/2013 2:45 PM CDT Narrative 11/08/2013 2:53 PM CDT KARMEN MADRIGAL M.D. FINAL REPORT ACC# ??Date Time ??Exam [id number] Nov 08, 2013 14:45:00 [id number] ABDOMEN SINGLE VIEW AP EXAMINATION: ?? Two views of the abdomen supine and decubitus HISTORY: Abdominal pain FINDINGS: The spine appears normal. The gas pattern is felt to be normal. Decubitus films show ??basically no air fluid levels or free air. No stones are appreciated in the urinary tract or in the appendix. IMPRESSION: ?? Normal-appearing abdomen Requested By: WAYLON SULLIVAN M.D. Dictated By: ?? KARMEN MADRIGAL M.D. ??on Nov 08 2013 ??2:53P This document has been electronically signed by: KARMEN MADRIGAL M.D. on Nov 08 2013 ??2:53P Procedure Note Provider, MD Tino - 12/26/2016 KARMEN MADRIGAL M.D. FINAL REPORT ACC# Date Time Exam [id number] Nov 08, 2013 14:45:00 [id number] ABDOMEN SINGLE VIEW AP EXAMINATION: Two views of the abdomen supine and decubitus HISTORY: Abdominal pain FINDINGS: The spine appears normal. The gas pattern is felt to be normal. Decubitus films show basically no air fluid levels or free air. No stones are appreciated in the urinary tract or in the appendix. IMPRESSION: Normal-appearing abdomen Requested By: WAYLON SULLIVAN M.D. Dictated By: KARMEN MADRIGAL M.D. on Nov 08 2013 2:53P This document has been electronically signed by: KARMEN MADRIGAL M.D. on Nov 08 2013 2:53P Historical Provider IMG XR PROCEDURES Final R esult * Urine chorionic gonadotropin (HCG) (11/08/2013 2:02 PM CDT) Pathologist [facility] HCG, ur Negative Negative HISTORICAL RESULTS Urine 11/08/2013 2:02 PM CDT Historical Provider LAB BLOOD ORDERABLES Renate l Result HISTORICAL RESULTS * (ABNORMAL) Urinalysis (11/08/2013 2:02 PM CDT) Color, ur Dark Yellow(A) HISTORICAL RESULTS Clarity, ur Cloudy(A) Clear HISTORIC AL RESULTS Specific gravity, ur 1.034(H) 1.008 - 1.022 HISTORICAL RESULTS pH, ur 6.5 HISTORICAL RESULTS Protein, ur Trace Negative HISTORIC AL RESULTS Glucose, ur Negative Negative HISTORIC AL RESULTS Ketones, ur Trace(A) Negative HISTORIC AL RESULTS Bilirubin, ur 1+(A) Negative HISTOR ICAL RESULTS Comment:{No confirmation wing t available.} U Blood 3+(A) Negative HISTORICAL RESULTS Urobilinogen, quant, ur 1.0 Christoph Units/dl HISTORICAL RESULTS Nitrites, ur Negative Negative HISTORI DOTTY RESULTS Leukocyte esterase, ur Negative Negative HISTORICAL RESULTS Urine 11/08/2013 2:02 PM CDT Result [facility] Provider MD LAB BLOOD ORDERABLES Renate l Result Performing Organization Address [facility] de Phone Number HISTORICAL RESULTS * (ABNORMAL) Urine microscopy (11/08/2013 2:02 PM CDT) RBC, ur >50/HPF(A) None Seen HISTORICA L RESULTS WBC, ur < 5/HPF None Seen HISTORICAL RESULTS Epithelial cells, renal, ur None Seen None Seen HISTORICAL RESULTS Epithelial cells, squamous, ur < 5/HPF HISTORICAL RESULTS Mucus 1+(A) HISTORICAL RESULTS Urine 11/08/2013 2:02 PM CDT Result [facility] Provider MD LAB BLOOD ORDERABLES Renate l Result Performing Organization Address [facility] de Phone Number HISTORICAL RESULTS * Serum C-reactive protein, high sensitivity (11/08/2013 12:55 PM CDT) C-RP, high sensitivity <0.1 <=10.0 mg/L HISTORICAL RESULTS Comment: {Repeated and verified.} Interpretive Data Values >10 mg/L are indicative of inflammation. No ranges have been established for assessment of cardiac disease risk in children. High risk (>3.0 mg/L), average risk (1.0-3.0 mg/L), and low risk (<1.0 mg/L)tertiles have been established for evaluation of cardiac disease risk in adults (Circulation 2003; 107:499-511). Current interpretive data was last revised on 2009. Serum 11/08/2013 12:5 5 PM CDT Result [facility] Provider MD LAB BLOOD ORDERABLES Renate l Result Performing Organization Address [facility] de Phone Number HISTORICAL RESULTS * Serum lipase (11/08/2013 12:55 PM CDT) Lip 24 5 - 50 Units/L HISTORICAL RESULTS Serum 11/08/2013 12:5 5 PM CDT Historical Provider LAB BLOOD ORDERABLES Renate l Result Performing Organization Address [facility] de Phone Number HISTORICAL RESULTS * (ABNORMAL) Plasma comprehensive metabolic panel (11/08/2013 12:55 PM CDT) Sodium 140 135 - 145 mmol/L HISTORICAL RESULTS K, pl 4.0 3.3 - 4.9 mmol/L HISTORICAL RESULTS Chloride 110 100 - 114 mmol/L HISTORICAL RESULTS CO2 25 20 - 30 mmol/L HISTORICAL RESULTS A. gap 6 mmol/L HISTORICAL RESULTS Glucose 91 70 - 199 mg/dl HISTORICAL RESULTS Comment: Interpretive Data Random glucose greater than or equal to 200 mg/dL with relevant clinical symptoms is diagnostic for diabetes when repeated on a subsequent day. Reference: Diabetes Care 2005;28:S37-S42. Current interpretive data was last revised on 2013. BUN 9 9 - 18 mg/dl HISTORICAL RESULTS Creatinine 0.6 0.4 - 1.0 mg/dl HISTORICAL RESULTS Calcium 9.1 8.6 - 10.3 mg/dl HISTORICAL RESULTS Protein, pl 7.3 6.5 - 8.5 g/dl HISTORICAL RESULTS Alb 4.5 3.2 - 5.0 g/dl HISTORICAL RESULTS Bilirubin 0.3 0.0 - 1.2 mg/dl HISTORICAL RESULTS Alk phos 80 70 - 260 Units/L HISTORICAL RESULTS AST 24 10 - 50 Units/L HISTORICAL RESULTS ALT 9(L) 10 - 40 Units/L HISTORICAL RESULTS Plasma 11/08/2013 12:5 5 PM CDT Historical Provider LAB BLOOD ORDERABLES Renate l Result Performing Organization Address [facility] Co de Phone Number HISTORICAL RESULTS * (ABNORMAL) Blood cell count (CBC) (11/08/2013 12:55 PM CDT) WBC 8.7 3.8 - 9.8 K/cumm HISTORICAL RESULTS RBC 4.10 3.90 - 5.00 M/cumm HISTORICAL RESULTS Hgb 12.5 12.1 - 15.1 g/dl HISTORICAL RESULTS Hct 38.2 36.1 - 44.3 % HISTORICAL RESULTS MCV 93.2 80.0 - 97.6 fl HISTORICAL RESULTS MCH 30.5 26.7 - 33.7 pg HISTORICAL RESULTS MCHC 32.7 32.7 - 35.5 g/dl HISTORICAL RESULTS Rdw 11.5(L) 11.8 - 14.6 % HISTORICAL RESULTS Platelets 302 140 - 440 K/cumm HISTORICAL RESULTS MPV 10.6 8.1 - 11.9 fl HISTORICAL RESULTS NRBC 0.0 #/100 WBC HISTORICAL RESULTS Blood specimen (specimen) 11/08/2013 12:55 PM CDT Historical Provider MD LAB BLOOD ORDERABLES Renate l Result Performing Organization Address [facility] Co de Phone Number HISTORICAL RESULTS * Blood erythrocyte sedimentation rate (ESR) (11/08/2013 12:55 PM CDT) Erythrocyte sedimentation rate 9.0 0.0 - 20.0 mm/hr HISTORICAL RESULTS Blood specimen (specimen) 11/08/2013 12:55 PM CDT Historical Provider MD LAB BLOOD ORDERABLES Renate l Result Performing Organization Address [facility] Co de Phone Number HISTORICAL RESULTS * Blood WBC cell morphologic exam, auto (11/08/2013 12:55 PM CDT) Neutrophils, abs 5.2 1.5 - 9.4 K/cumm HISTORICAL RESULTS Lymphocytes, abs 2.7 1.0 - 7.2 K/cumm HISTORICAL RESULTS Monocytes, absolute 0.6 0.1 - 1.7 K/cumm HISTORICAL RESULTS Eosinophils, abs 0.2 0.1 - 1.6 K/cumm HISTORICAL RESULTS Basophils, abs 0.1 0.0 - 0.3 K/cumm HISTORICAL RESULTS Immature granulocyte, abs 0.0 0.0 - 0.2 K/cumm HISTORICAL RESULTS Neutrophils 59.5 % HISTORIC AL RESULTS Lymphocytes 31.0 % HISTORIC AL RESULTS Monos 6.3 % HISTORICAL RESULTS Eosinophils 2.1 % HISTORIC AL RESULTS Basophils 0.8 % HISTORICAL RESULTS Immature granulocytes 0.3 % HISTORICAL RESULTS Blood specimen (specimen) 11/08/2013 12:55 PM CDT Historical Provider MD LAB BLOOD ORDERABLES Renate l Result Performing Organization Address [facility] Co de Phone Number HISTORICAL RESULTS * (ABNORMAL) Plasma amylase (11/08/2013 12:55 PM CDT) Nely, pl 139(H) <=130 Units/L HISTORICAL RESULTS Plasma 11/08/2013 12:5 5 PM CDT Historical Provider LAB BLOOD ORDERABLES Renate l Result Performing Organization Address [facility] de Phone Number HISTORICAL RESULTS * CT Head WO Contrast (11/08/2013 12:27 PM CDT) Anatomical Region Laterality Modality Head and Neck N/A Computed Tomogra phy 11/08/2013 12:2 7 PM CDT Narrative 11/08/2013 3:35 PM CDT SHAHEEN VOSS M.D. ALO CROWDER M.D. FINAL REPORT The radiology attending physician has personally reviewed this study, and has reviewed and/or edited this written report and agrees with it. ACC# ??Date Time ??Exam [id number] Nov 08, 2013 12:27:[id number] HEAD OR BRAIN W/O CONT EXAMINATION: ?? Computed tomography of the head without contrast HISTORY: 13-year-old female with headache and vomiting upon waking TECHNIQUE: Computed tomography of the head was performed without contrast according to standard protocol. COMPARISON: None available CONTRAST: None administered FINDINGS: No acute intra- or extra-axial fluid collections are identified. The ventricles are of normal size, shape, and morphology. The basal cisterns are patent. No mass effect or midline shift is seen. The ascencio-white matter differentiation is normal. The visualized portions of the orbits, paranasal sinuses, and mastoids appear normal. No acute fracture is identified. There is a small 1 cm left paramedial parietal convex contour of the inner table the calvarium appears benign and is most likely from an arachnoid granulation. No evidence of Chiari malformation. IMPRESSION: ?? 1. No acute intracranial process. Specifically, no findings to explain the patient's headache and vomiting. Requested By: WAYLON SULLIVAN M.D. Dictated By: ?? ALO CROWDER M.D. ??on Nov 08 2013 ??2:11P This document has been electronically signed by: SHAHEEN VOSS M.D. on Nov 08 2013 ??3:35P Procedure Note Provider, MD Tino - 12/26/2016 SHAHEEN VOSS M.D. ALO CROWDER M.D. FINAL REPORT The radiology attending physician has personally reviewed this study, and has reviewed and/or edited this written report and agrees with it. ACC# Date Time Exam [id number] Nov 08, 2013 12:27:[address] HEAD OR BRAIN W/O CONT EXAMINATION: Computed tomography of the head without contrast HISTORY: 13-year-old female with headache and vomiting upon waking TECHNIQUE: Computed tomography of the head was performed without contrast according to standard protocol. COMPARISON: None available CONTRAST: None administered FINDINGS: No acute intra- or extra-axial fluid collections are identified. The ventricles are of normal size, shape, and morphology. The basal cisterns are patent. No mass effect or midline shift is seen. The ascencio-white matter differentiation is normal. The visualized portions of the orbits, paranasal sinuses, and mastoids appear normal. No acute fracture is identified. There is a small 1 cm left paramedial parietal convex contour of the inner table the calvarium appears benign and is most likely from an arachnoid granulation. No evidence of Chiari malformation. IMPRESSION: 1. No acute intracranial process. Specifically, no findings to explain the patient's headache and vomiting. Requested By: WAYLON SULLIVAN M.D. Dictated By: ALO CROWDER M.D. on Nov 08 2013 2:11P This document has been electronically signed by: SHAHEEN VOSS M.D. on Nov 08 2013 3:35P us Historical Provider IMG CT PROCEDURES Final R esult * Serum mononucleosis ab (11/08/2013 7:55 AM CDT) Mononucleosis Negative Negative HISTOR ICAL RESULTS Serum 11/08/2013 7:55 AM CDT Narrative HISTORICAL RESULTS - 11/08/2013 8:29 AM CDT Interpretive Data Heterophile antibodies are short-lived. ??Therefore, a positive test is consistent with recent infection. ??Heterophile antibodies fail to develop in 0%-15% of adults and in a higher percentage of children. Gayle-Taylor virus Serology (IgG and IgM) testing should be performed to exclude disease in patients with a negative antibody test. Current interpretive data was last revised on 2009. us Historical Provider LAB BLOOD ORDERABLES Renate medina Result HISTORICAL RESULTS * Discharge Laboratory Cumulative Report (11/08/2013 12:00 AM CDT) 11/08/2013 Narrative HISTORICAL RESULTS - 11/09/2013 2:34 AM CDT ? [facility] ?Clinical Laboratories ? [address] [facility] ? [place] [address] Patient Name: ? MARGAUX AREVALO [facility] Rec Number: ?? [id number] Fin Number: ? [id number] Date: ? 2000 Sex/Age: ?Female 13 years Admit Date: ? 11/08/2013 Discharge Date: ?? 11/08/2013 Doctor: ? Derian Byers Referring Doctor: None, Referring Facility: ? [facility] Location: ? [facility] Chart Printed: ?11/09/2013 02:34 ?* Abnormal ??C Critical ??f Footnote ??^ Corrected ??L Low ??H High ? i Interp Data ??@ Ref Lab ?Chart Type:Cumulative ? SELECTED ELECTROLYTES ?Test: ?? Sodium ?Plasma Potassium ?? Chloride ? Reference: ??[135-145] ?[3.3-4.9] ?[100-114] ? Units: ?? mmol/L ? mmol/L ? mmol/L 11/08/2013 ?? 12:55:53 ?140 ?4.0 ?110 ?Test: ??Total CO2 ??Anion Gap ? Reference: ?? [20-30] ? Units: ?? mmol/L ? mmol/L 11/08/2013 ?? 12:55:53 ? 25 ?6 ? STANDARD BLOOD CHEMISTRY ?Test: ?? BUN ?Creatinine ??Total Bilirubin ??Glucose i ? Reference: ??[9-18] ?? [0.4-1.0] ?[0.0-1.2] ?[70-199] ? Units: ??mg/dL ? mg/dL ?mg/dL ? mg/dL 11/08/2013 ?? 12:55:53 ?9 ?0.6 ?0.3 ?91 11/08/2013 12:55:53 Glucose: Interpretive Data Random glucose greater than or equal to 200 mg/dL with relevant clinical symptoms is diagnostic for diabetes when repeated on a subsequent day. Reference: Diabetes Care 2005;28:S37-S42. Current interpretive data was last revised on 2013. ?Test: ??Total Calcium ??Plasma Total Protein ?? Albumin ? Reference: ?? [8.6-10.3] ? [6.5-8.5] ?[3.2-5.0] ? Units: ?mg/dL ?g/dL ? g/dL 11/08/2013 ?? 12:55:53 ?9.1 ?7.3 ?4.5 ?ENZYMES ?Test: ??Alkaline Phosphatase ?ALT ?AST ? Reference: ?[70-260] ?[10-40] ??[10-50] ? Units: ?Units/L ? Units/L ??Units/L 11/08/2013 ?? 12:55:53 ?80 ?9 ??L ?24 ?ENZYMES ?Test: ??Amylase ?? Lipase ? Reference: ??[<=130] ?? [5-50] ? Units: ??Units/L ??Units/L 11/08/2013 ?? 12:55:53 ?? 139 ??H ? 24 ?URINE HORMONES ?Test: ??Ur hCG, Qual ? Reference: ?? [Negative] ? Units: 11/08/2013 ?? 14:02:30 ? Negative ?URINALYSIS ?Macroscopic ?Test: ?Color ?Clarity ?? Specific Custer ? Reference: ? [Clear] ? [1.008- 1.022] ? Units: 11/08/2013 ?? 14:02:30 ?? Dark Yellow ??* ??Cloudy ??* ?1.034 ??H ?Test: ??pH ?Albumin ? Glucose ? Ketones ? Reference: ? [Negative] ??[Negative] ??[Negative] ? Units: 11/08/2013 ?? 14:02:30 ?? 6.5 ? Trace ?Negative ?Trace ??* ?Test: ??Bilirubin ? Blood ? Urobilinogen ? Reference: ??[Negative] ??[Negative] ? Units: ? EhrUnit/dL 11/08/2013 ?? 14:02:30 ? 1+ ??*f ?3+ ??* ? 1.0 11/08/2013 14:02:30 ??Bilirubin: No confirmation test available. ?Test: ?? Nitrite ?Leuk Esterase ? Reference: ??[Negative] ?[Negative] ? Units: 11/08/2013 ?? 14:02:30 ?Negative ?Negative ?Microscopic ?Test: ?RBC ?WBC ?Epithl, Renal ? Reference: ??[None Seen] ??[None Seen] ?? [None Seen] ? Units: 11/08/2013 ?? 14:02:30 ?? >50/HPF ??* ?< 5/HPF ?None Seen ?Test: ??Epithl, Squam ??Mucous ? Reference: ? Units: 11/08/2013 ?? 14:02:30 ?< 5/HPF ? 1+ ??* ? COMPLETE BLOOD COUNT ?Test: ? WBC ? RBC ?Hgb ? Reference: ??[3.8-9.8] ??[3.90-5.00] ??[12.1-15.1] ? Units: ?? K/cumm ?M/cumm ?g/dL 11/08/2013 ?? 12:55:53 ?8.7 ? 4.10 ? 12.5 ?Test: ?Hct ?Platelet Ct ?MCV ? Reference: ??[36.1-44.3] ?? [140-440] ?? [80.0-97.6] ? Units: ? % ?K/cumm ? fL 11/08/2013 ?? 12:55:53 ? 38.2 ?302 ?93.2 ?Test: ?MCH ?MCHC ?RDW ? Reference: ??[26.7-33.7] ??[32.7-35.5] ??[11.8-14.6] ? Units: ?pg ?g/dL ? % 11/08/2013 ?? 12:55:53 ? 30.5 ? 32.7 ? 11.5 ??L ?Test: ? MPV ?NRBC Auto ? Reference: ??[8.1-11.9] ? Units: ?fL ? /100WBC 11/08/2013 ?? 12:55:53 ?10.6 ?0.0 ? AUTOMATED WHITE CELL DIFFERENTIAL ?Test: ??Neut Pct Auto ??Lymph Pct Auto ??Walsh Pct Auto ? Reference: ? Units: ?% ? % ? % 11/08/2013 ?? 12:55:53 ?59.5 ?31.0 ?6.3 ?Test: ??Eos Pct Auto ??Baso Pct Auto ??Imm Gran Pct Auto ? Reference: ? Units: ? % ?% ?% 11/08/2013 ?? 12:55:53 ?2.1 ?0.8 ?0.3 ?Test: ??Neut Abs Auto ??Lymph Abs Auto ??Walsh Abs Auto ? Reference: ?[1.5-9.4] ? [1.0-7.2] ? [0.1- 1.7] ? Units: ? K/cumm ?K/cumm ?K/cumm 11/08/2013 ?? 12:55:53 ?5.2 ? 2.7 ? 0.6 ?Test: ??Eos Abs Auto ??Baso Abs Auto ??Imm Gran Abs Auto ? Reference: ?? [0.1-1.6] ?[0.0-0.3] ?[0.0-0.2] ? Units: ? K/cumm ? K/cumm ? K/cumm 11/08/2013 ?? 12:55:53 ?0.2 ?0.1 ?0.0 ? MISCELLANEOUS HEMATOLOGY ?Test: ?? ESR ? Reference: ??[0-20] ? Units: ?? mm/H 11/08/2013 ?? 12:55:53 ?9 ? SEROLOGY - VIRAL TESTING ?Test: ??Walsh Screen i ? Reference: ?? [Negative] ? Units: 11/08/2013 ?? 12:55:53 ?Negative 11/08/2013 12:55:53 Walsh Screen: Interpretive Data Heterophile antibodies are short-lived. ??Therefore, a positive test is consistent with recent infection. ??Heterophile antibodies fail to develop in 0%-15% of adults and in a higher percentage of children. ??Gayle-Taylor virus Serology (IgG and IgM) testing should be performed to exclude disease in patients with a negative antibody test. Current interpretive data was last revised on 2009. ? SEROLOGY - BACTERIAL TESTING ?Test: ??HS CRP i ? Reference: ??[<=10.0] ? Units: ?mg/L 11/08/2013 ?? 12:55:53 ?<0.1 ??f 11/08/2013 12:55:53 HS CRP: Interpretive Data Values >10 mg/L are indicative of inflammation. No ranges have been established for assessment of cardiac disease risk in children. High risk (>3.0 mg/L), average risk (1.0-3.0 mg/L), and low risk (<1.0 mg/L)tertiles have been established for evaluation of cardiac disease risk in adults (Circulation 2003; 107:499-511). Current interpretive data was last revised on 2009. 11/08/2013 12:55:53 ??HS CRP: Repeated and verified. us Historical Provider LAB BLOOD ORDERABLES Renate medina Result HISTORICAL RESULTS documented in this encounter Visit Diagnoses Diagnosis Abdominal pain Abdominal pain, unspecified site Other depressive disorder Anxiety state Anxiety state, unspecified documented in this encounter Care Teams Toddler Caregiver Relationship Specialty Start Date End Date Laura Reid MD PCP - General 09/13/13 11/20/16 documented as of this encounter
--- OUTSIDE RECORDS SUMMARY | 2024-08-30 03:05 | XMS_ITS | Encounter Summary ---
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
--- OUTSIDE RECORDS SUMMARY | 2024-08-30 03:05 | XMS_ITS | Encounter Summary ---
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 - 11/01/2022 11:59 PM INTEL ANALYST Hospital Encounter [facility]ILL[facility] Emergency, Room R Discharge Disposition: Discharge to home or self care Social History Tobacco Use Types Packs/Day Years Used Date Smoking Tobacco: Some Days Cigarettes Smokeless Tobacco: Never Alcohol Use Standard Drinks/Week Comments Not Currently 0 (1 standard drink = 0.6 oz pur e alcohol) Comments No Sex and Gender Information Value Date Recorded Sex Assigned at Not on file 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 Gender Identity Not on file Sexual Orientation Not on file documented as of this encounter Medications at Time of Discharge capsaicin (ZOSTRIX) 0.025 % creamIndications :abdominal pain Apply topically 2 (two) times a day 60 g 10/13/2022 clonazePAM (KlonoPIN) 0.5 mg tablet TAKE 1 TABLET BY MOUTH TWICE DAILY NEEDED FOR ANXIETY OR SLEEP 09/23/2022 dicyclomine (BENTYL) 10 mg capsuleIndicatio ns:Abdominal Pain with Cramps Take 1 capsule (10 mg total) by mouth 3 (three) times a day 90 capsule 11 10/27/2022 diphenhydrAMINE (BENADRYL) 25 mg capsule Take 1 [...] 08/07/2022 prazosin (MINIPRESS) 1 mg capsule 09/09/2022 promethazine (PHENERGAN) 25 mg tabletIndication s:Nausea and Vomiting Take 1 tablet (25 mg total) by mouth every 6 (six) hours as needed for nausea or vomiting 30 tablet 10/27/2022 PSEUDOEPHEDRINE HCL ORAL Take 1 tablet by mouth daily. sucralfate (CARAFATE) 1 gram tablet TAKE 1 TABLET BY MOUTH FOUR TIMES DAILY ONE HOUR PRIOR TO MEALS AND BEDTIME 10/15/2022 venlafaxine XR (EFFEXOR-XR) 150 mg 24 hr capsule 10/20/2022 documented as of this encounter Discharge Disposition Disposition Code Departure Means Destination Discharge to home or self care documented in this encounter Plan of Treatment Not on file documented as of this encounter Visit Diagnoses Not on filedocumented in this encounter Care Teams Executive Vp Relationship Specialty Start Date End Date Nubia Brown PA [address] [address] PCP - General 10/04/20 documented as of this encounter
--- OUTSIDE RECORDS SUMMARY | 2024-08-30 03:05 | XMS_ITS | Clinical Summary ---
Author Organization [facility] Virtual Care Address [facility] [place] [address] Phone Care Team Providers Care Linux Engineer Name Role Phone Nubia Brown Primary Care Provider [phone] Allergies Active Allergy Reactions Criticality Noted Date Comments Topiramate Delusions,Mental sta tus changes Medium 01/03/2016 Psychological problems Medications diphenhydrAMIN E (BENADRYL) 25 mg capsule Take 1 tablet by mouth daily. Active multivitamin with iron tablet Take 1 tablet by mouth. 6 Active PSEUDOEPHEDRIN E HCL ORAL Take 1 tablet by mouth daily. Active naproxen (NAPROSYN) 375 mg tablet Take 1 tablet (375 mg total) by mouth 2 (two) times a day with meals P.r.n. pain. Collaborating physician Gamal Houser MD 20 tablet 1 Active capsaicin (ZOSTRIX) 0.025 % creamIndicatio ns:abdominal pain Apply topically 2 (two) times a day 60 g 3 Active clonazePAM (KlonoPIN) 0.5 mg tablet TAKE 1 TABLET BY MOUTH TWICE DAILY NEEDED FOR ANXIETY OR SLEEP 3 Active omeprazole (PriLOSEC) 40 mg capsule Take 40 mg by mouth daily 2 Active prazosin (MINIPRESS) 1 mg capsule 3 Active sucralfate (CARAFATE) 1 gram tablet TAKE 1 TABLET BY MOUTH FOUR TIMES DAILY ONE HOUR PRIOR TO MEALS AND BEDTIME 3 Active venlafaxine XR (EFFEXOR-XR) 150 mg 24 hr capsule 3 Active dicyclomine (BENTYL) 10 mg capsuleIndicat ions:Abdominal Pain with Cramps Take 1 capsule (10 mg total) by mouth 3 (three) times a day 90 capsule 11 3 Active promethazine (PHENERGAN) 25 mg tabletIndicati ons:Nausea and Vomiting Take 1 tablet (25 mg total) by mouth every 6 (six) hours as needed for nausea or vomiting 30 tablet 3 Active Active Problems Problem Noted Date Diagnosed Date Urinary tract infection in female 10/04/2020 Dysmenorrhea 10/04/2020 Excessive sleepiness 09/23/2015 Overview (04/06/2018): Overview: Formatting of this note may be [...] Irritable bowel syndrome 11/24/2010 Abdominal pain 11/24/2010 Medical History Medical History Date Comments Hx Other Medical drug expo sure Endometritis endometriosis Hx Other Medical back pain Headache(784.0) Headaches Anemia Depression Family History Medical History Relation Name Comments No Known Problems Brother No Known Problems Daughter No Known Problems Father No Known Problems Mother No Known Problems Other No Known Problems Sister No Known Problems Son Relation Name Status Comments Brother Daughter Father Mother Other Sister Son Social History Tobacco Use Types Packs/Day Years [...] on file Legal Sex Female 1:59 AM ROD HANGER Gender Identity Not on file Sexual Orientation Not on file Obstetrics History Last Filed Vital Signs Vital Sign Reading Time Taken Comments Blood Pressure 135/89 10/27/2022 9:01 AM ROD HANGER Pulse 89 10/27/2022 9:01 AM ROD HANGER Temperature 36.6 ??C (97.9 ??F) 10/27/2022 9:01 AM CS T Respiratory Rate 16 10/12/2022 10:36 PM ROD HANGER Oxygen Saturation 96% 10/27/2022 9:01 AM ROD HANGER Inhaled Oxygen Concentration - - Weight 83.5 kg (184 lb) 10/27/2022 9:01 AM ROD HANGER Height 157.5 cm (5' 2 ) 10/27/2022 9:01 AM ROD HANGER Body Mass Index 33.65 10/27/2022 9:01 AM ROD HANGER Plan of Treatment Health Maintenance Due Date Last Done Comments Cervical Cancer Screening 1998 Depression Screening 1998 Hepatitis C Screening 1998 Pneumococcal vaccine <65 (1 of 2 - PCV) 02/21/2004 Varicella Vaccines (1 of 2 - 13+ 2-dose series) 2011 HPV Vaccines (1 - 3-dose series) 2013 Hepatitis B Screening 02/21/2016 Regular Well Visit/Exam 18-64 02/21/2016 Covid-19 Vaccine (2 - 2023- season) 04/24/202401/2021 Influenza Vaccine (#1) 2024 05/08/2022, 2019 DTaP/Tdap/Td Vaccine (2 - Td or Tdap) 02/11/2031 [place] [address] [employer] [facility] HMO [facility] [place] [address] [facility] [place] [address] [facility] Care Teams Linux Engineer Relationship Specialty Start Date End Date Nubia Brown PA 2 [facility] [address] [address] PCP - General 10/04/20
--- OUTSIDE RECORDS SUMMARY | 2024-08-30 03:05 | XMS_ITS | Encounter Summary ---
Author Organization [facility] Facility Care Team Providers Care Emergency Department Coordinator Name Role Phone Unavailable Primary Care Provider Unavailabl e Encounter Details Date Type Department Care Team (Late st Contact Info) Description 11/20/2010 2:25 PM CDT - 11/20/2010 11:59 PM CDT Hospital Encounter [facility] Otoniel Langley MD [address] [place] [id number] Abdominal pain Social History Tobacco Use Types Packs/Day Years Used Date Smoking Tobacco: Never Assessed Comments Unknown Sex and Gender Information Value Date Recorded Sex Assigned at Not on file Legal Sex Female 1:59 AM HEALTH SERVICES COORDINATOR Gender Identity Not on file Sexual Orientation Not on file documented as of this encounter Plan of Treatment Not on file documented as of this encounter Visit Diagnoses Diagnosis Abdominal pain Abdominal pain, unspecified site documented in this encounter
--- OUTSIDE RECORDS SUMMARY | 2024-08-30 03:05 | XMS_ITS | Encounter Summary ---
Author Organization [facility] Facility Care Team Providers Care Forest Scientist Name Role Phone Unavailable Primary Care Provider Unavailabl e Encounter Details Date Type Department Care Team (Late st Contact Info) Description 02/07/2011 8:52 AM CDT - 02/07/2011 11:59 PM CDT Hospital Encounter [facility] Otoniel Langley MD [address] [place] [address] Hypertrophy of kidney; Abdominal pain Social History Tobacco Use Types Packs/Day Years Used Date Smoking Tobacco: Never Assessed Comments Unknown Sex and Gender Information Value Date Recorded Sex Assigned at Not on file Legal Sex Female 1:59 AM SUPERVISOR [employer]ANT Gender Identity Not on file Sexual Orientation Not on file documented as of this encounter Plan of Treatment Not on file documented as of this encounter Visit Diagnoses Diagnosis Hypertrophy of kidney Abdominal pain Abdominal pain, unspecified site documented in this encounter
--- OUTSIDE RECORDS SUMMARY | 2024-08-30 03:05 | XMS_ITS | Encounter Summary ---
Author Organization [facility] Facility Care Team Providers Care Costumer Name Role Phone Unavailable Primary Care Provider Unavailabl e Encounter Details Date Type Department Care Team (Late st Contact Info) Description 01/31/2011 12:49 PM CDT - 01/31/2011 11:59 PM CDT Hospital Encounter [facility] Otoniel Langley MD [address] [place] [id number] Abdominal pain of other specified site Social History Tobacco Use Types Packs/Day Years Used Date Smoking Tobacco: Never Assessed Comments Unknown Sex and Gender Information Value Date Recorded Sex Assigned at Not on file Legal Sex Female 1:59 AM ENGINEERING OFFICER Gender Identity Not on file Sexual Orientation Not on file documented as of this encounter Plan of Treatment Not on file documented as of this encounter Visit Diagnoses Diagnosis Abdominal pain of other specified site documented in this encounter
--- OUTSIDE RECORDS SUMMARY | 2024-08-30 03:05 | XMS_ITS | Encounter Summary ---
Author Organization [facility] Healthcare Address [address] [place] [address] Care Team Providers Care Shake Out Worker Name Role Phone Nubia Brown Primary Care Provider Encounter Details Date Type Department Care Team (Latest Contact Info) Description 02/07/2022 8:42 AM CDT - 02/07/2022 11:59 PM CDT Hospital Encounter [facility] Discharge Disposition: Discharge to home or self care Social History Tobacco Use Types Packs/Day Years Used Date Smoking Tobacco: Never Smokeless Tobacco: Never Comments Unknown Sex and Gender Information Value Date Recorded Sex Assigned at Not on file Legal Sex Female 1:59 AM HEALTHCARE BUSINESS ANALYST Gender Identity Not on file Sexual Orientation Not on file documented as of this encounter Medications at Time of Discharge diphenhydrAMINE (BENADRYL) 25 mg capsule Take 1 tablet by mouth daily. multivitamin with iron tablet Take 1 tablet by mouth. 02/08/2016 naproxen (NAPROSYN) 375 mg tablet Take 1 tablet (375 mg total) by mouth 2 (two) times a day with meals P.r.n. pain. Collaborating physician Gamal Houser MD 20 tablet 10/04/2020 PSEUDOEPHEDRINE HCL ORAL Take 1 tablet by mouth daily. AMOXICILLIN 500 mg capsule 03/18/2018 citalopram (CeleXA) 20 mg tablet take 1 [...] 10/30/2016 3 documented as of this encounter Discharge Disposition Disposition Code Departure Means Destination Discharge to home or self care documented in this encounter Plan of Treatment Not on file documented as of this encounter Visit Diagnoses Not on filedocumented in this encounter Care Teams Shake Out Worker Relationship Specialty Start Date End Date Nubia Brown PA [address] [place] [address] PCP - General 10/04/20 documented as of this encounter
--- OUTSIDE RECORDS SUMMARY | 2024-08-30 03:05 | XMS_ITS | Referral Summary ---
Author Organization [facility] Virtual Care Address [facility] [place] [address] Phone Care Team Providers Care Director Business Development Name Role Phone Nubia Brown Primary Care Provider [phone] Allergies Active Allergy Reactions Criticality Noted Date [...] Irritable bowel syndrome 11/24/2010 Abdominal pain 11/24/2010 Social History Tobacco Use Types Packs/Day Years [...] on file Legal Sex Female 1:59 AM HYDROLOGY PROFESSOR Gender Identity Not on file Sexual Orientation Not on file Last Filed Vital Signs Vital Sign Reading Time Taken Comments Blood Pressure 135/89 10/27/2022 9:01 AM HYDROLOGY PROFESSOR Pulse 89 10/27/2022 9:01 AM HYDROLOGY PROFESSOR Temperature 36.6 ??C (97.9 ??F) 10/27/2022 9:01 AM CS T Respiratory Rate 16 10/12/2022 10:36 PM HYDROLOGY PROFESSOR Oxygen Saturation 96% 10/27/2022 9:01 AM HYDROLOGY PROFESSOR Inhaled Oxygen Concentration - - Weight 83.5 kg (184 lb) 10/27/2022 9:01 AM HYDROLOGY PROFESSOR Height 157.5 cm (5' 2 ) 10/27/2022 9:01 AM HYDROLOGY PROFESSOR Body Mass Index 33.65 10/27/2022 9:01 AM HYDROLOGY PROFESSOR Plan of Treatment Not on file Insurance [facility] HMO [facility] [address] [facility] Care Teams Director Business Development Relationship Specialty Start Date End Date Nubia Brown PA [address] [address] PCP - General 10/04/20
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
--- OUTSIDE RECORDS SUMMARY | 2024-08-30 03:05 | XMS_ITS | Encounter Summary ---
Author Organization [facility] Address [address] [address] Care Team Providers Care Oyster Planter Name Role Phone Laura Reid MD Primary Care Provider [phone] Reason for Referral * Physical Therapy (Routine) - Closed Specialty Diagnoses / Procedures Referred By Kaleigh t Referred To Contact Physical Therapy Diagnoses Closed dislocation of right patella, subsequent encounter Nel Carbajal MD Phone: tel: fax: [facility] [place] [address] [place] [address] Phone: tel: fax: Referral ID Status Reason Start Date Expiration Date V isits Requested Visits Authorized [id number] Closed Specialty Services Required 04/07/2018 10/17/2019 12 12 Question Answer PTRFR PT Evaluate and Treat Therapy options discussed with patient? Yes Location provided for therapy services is: Patient requested/Patient preferred Comments Evaluate and Treat- Strengthening exercises for core, hips, thigh, and VMO. Balance exercises. Modalities prn. HEP. 2 x week for 6 weeks. 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 Gender Identity Not on file Sexual Orientation Not on file documented as of this encounter Last Filed Vital Signs Vital Sign Reading Time Taken Comments Blood Pressure 122/78 04/06/2018 3:42 PM CDT Pulse 66 04/06/2018 3:42 PM CDT Temperature - - Respiratory Rate - - Oxygen Saturation - - Inhaled Oxygen Concentration - - Weight 72.7 kg (160 lb 3.2 oz) 04/06/2018 3:42 P M CDT Height 157.5 cm (5' 2 ) 04/06/2018 3:42 PM CDT Body Mass Index 29.3 04/06/2018 3:42 PM CDT documented in this encounter Progress Notes * Nel Carbajal MD - 04/06/2018 3:45 PM CDT Images from the original note were not included. FOLLOW UP VISIT Subjective CHIEF COMPLAINT She had concerns including Pain of the Right Knee. HISTORY OF PRESENT ILLNESS Josephine presents today for f/u right patella dislocation which occurred 2 months ago. She states she is doing well. Has dull mild pain worse with walking on uneven surfaces. Pain is better with rest and Tylenol. Pain is activity related. Denies numbness, tingling, weakness, swelling. No further episodes of dislocation. She did not attend PT as she states she never received a call. Pain Assessment Pain Score: 3 Pain Descriptors: Dull Date Pain First Started: 02/04/18 Aggravating Factors: Walking, Other (Comment) (uneven platforms) Work-Related Injury: No Pain Interventions: (braces) MEDICATIONS She has a current medication list which includes the following prescription(s): drospirenone-ethinyl estradiol, amoxicillin, citalopram, diphenhydramine, hydroxyzine, lamictal, lamotrigine, levora-28, multivitamin with iron, and pseudoephedrine hcl. REVIEW OF SYSTEMS Review of Systems Constitutional: Positive for fever. HENT: Negative. Eyes: Negative. Respiratory: Negative. Cardiovascular: Negative. Gastrointestinal: Negative. Genitourinary: Negative. Musculoskeletal: Negative. Skin: Negative. Neurological: Negative. Psychiatric/Behavioral: The patient is nervous/anxious. All other systems reviewed and are negative. Objective PHYSICAL EXAM BP 122/78 Pulse 66 Ht 157.5 cm (5' 2 ) Wt 72.7 kg (160 lb 3.2 oz) BMI 29.30 kg/m?? Right knee The patient has normal inspection, palpation, range of motion, strength, and stabilty of the right knee. Left knee The patient has normal inspection, palpation, range of motion, strength, and stabiltiy of the left knee. REVIEW OF X-RAYS/STUDIES/LABS Assessment/Plan Josephine was seen today for pain. Diagnoses and all orders for this visit: Closed dislocation of right patella, subsequent encounter Procedures PLAN Instructed on PT strengthening exercises for her quad and hip. Activities as tolerated. OTC medication as tolerated. Use knee brace as needed for support with activities. If she is doing well, she may RTC PRN. If symptoms get worse or persist, RTC for repeat exam. She is in full understanding and in agreement with the plan, and all of her questions were answered. Nel Carbajal MD documented in this encounter Miscellaneous Notes * Addendum Note - Hossein Sue ATC - 04/06/2018 3:45 PM CDTAddended by: HOSSEIN SUE on: 04/07/2018 12:51 PM Modules accepted: Orders documented in this encounter Plan of Treatment Scheduled Referrals Name Type Priority Associated Diagnoses Orde r Schedule Ambulatory referral order to Physical Therapy - Outpatient Referral Routine Closed dislocation of right patella, subsequent encounter Ordered: 04/07/2018 documented as of this encounter Visit Diagnoses Diagnosis Closed dislocation of right patella, subsequent encounter- Primary documented in this encounter Historical Medications * This list may reflect changes made after this encounter. PSEUDOEPHEDRINE HCL ORAL Take 1 tablet by mouth daily. multivitamin with iron tablet Take 1 tablet by mouth. 02/08/2016 diphenhydrAMINE (BENADRYL) 25 mg capsule Take 1 tablet by mouth daily. lamoTRIgine (LaMICtal) 200 mg tablet Take 1 tablet by mouth. 12/16/2015 10/27/2022 drospirenone-ethi nyl estradiol (LUIS,GIANVI) 3-0.02 mg per tablet Take 1 tablet by mouth. 10/27/2022 AMOXICILLIN 500 mg capsule 03/18/2018 10/27/2022 added in this encounter Care Teams Oyster Planter Relationship Specialty Start Date End Date Laura Reid MD PCP - General 11/21/16 10/03/20 documented as of this encounter
--- OUTSIDE RECORDS SUMMARY | 2024-08-30 03:05 | XMS_ITS | Encounter Summary ---
Author Organization [facility] Address [address] [place] [address] Care Team Providers Care Ocular Pathologist Name Role Phone Laura Sanders MD Primary Care Provider Encounter Details Date Type Department Care Team (Late st Contact Info) Description 10/31/2013 6:49 PM CDT - 10/31/2013 11:59 PM CDT Hospital Encounter [facility] Laura Sanders MD [address] [place] [address] [address] Cervical spondylosis without myelopathy; Disturbance of skin sensation Social History Tobacco Use Types Packs/Day Years Used Date Smoking Tobacco: Never Assessed Comments Unknown Sex and Gender Information Value Date Recorded Sex Assigned at Not on file Legal 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?[id number] DATE OF EXAM: ??Oct 31 2013 CLINICAL HISTORY: Chest pain and numbness in the left arm. RESULT: TECHNIQUE: Coronal T1, T2, T2 SPAIR; axial T1, T2 and T2 SPAIR; sagittal T1 and T2. FINDINGS: The fat planes around the brachial plexus are preserved. ??No suspicious masses are identified. ??No evidence of a supernumerary rib is seen; however, the posterior ribs are not included in the exam. ??Benign appearing bilateral axillary lymph nodes are seen. IMPRESSION: 1. NO SUSPICIOUS MASSES OR LYMPHADENOPATHY. 2. NO OBVIOUS MASS EFFECT OR LESION INVOLVING EITHER BRACHIAL PLEXUS. CORRELATION WITH A CHEST X-RAY IS RECOMMENDED TO EXCLUDE SUPERNUMERARY RIBS. Interpreting Physician: ??STAR ARNETT M.D. ??Read on: ??Nov 01 2013 10:23A Transcribed by: ??laurie ??On: Nov 01 2013 10:23A Approved Electronically by: ??STAR ARNETT M.D. ??on: ??Nov 01 2013 10:27A Ordering DR: DR LAURA SANDERS Attending DR: DR LAURA SANDERS Procedure Note Provider, MD Tino - 12/26/2016 MRI CHEST Acc#: [id number] DATE OF EXAM: Oct 31 2013 CLINICAL HISTORY: Chest pain and numbness in the left arm. RESULT: TECHNIQUE: Coronal T1, T2, T2 SPAIR; axial T1, T2 and T2 SPAIR; sagittal T1 andT2. FINDINGS: The fat planes around the brachial plexus are preserved. No suspiciousmasses are identified. No evidence of a supernumerary rib is seen;however, the posterior ribs are not included in the exam. Benignappearing bilateral axillary lymph nodes are seen. IMPRESSION: 1. NO SUSPICIOUS MASSES OR LYMPHADENOPATHY. 2. NO OBVIOUS MASS EFFECT OR LESION INVOLVING EITHER BRACHIAL PLEXUS.CORRELATION WITH A CHEST X-RAY IS RECOMMENDED TO EXCLUDE SUPERNUMERARYRIBS. Interpreting Physician: STAR ARNETT M.D. Read on: Nov 01 201310:23A Transcribed by: laurie On: Nov 01 2013 10:23A Approved Electronically by: STAR ARNETT M.D. on: Nov 01 201310:27A Ordering DR: DR LAURA SANDERS Attending DR: DR LAURA SANDERS us Historical Provider MD CR MRI PROCEDURES Final Result * MRI Cervical Spine WO Contrast (10/31/2013 5:14 PM CDT) Anatomical Region Laterality Modality Spine N/A Magnetic Resonan ce 10/31/2013 5:14 PM CDT Narrative 11/01/2013 10:27 AM CDT MRI CERVICAL SPINE ??Acc#: ??[id number] DATE OF EXAM: ??Oct 31 2013 CLINICAL HISTORY: Chest pain and numbness in the left arm. RESULT: TECHNIQUE: Sagittal T1 and T2; axial T1 and T2. FINDINGS: Reversal of the normal cervical curvature is centered at C4. ??Vertebral body height and bony alignment are maintained. ??No abnormal marrow signal is noted. ??The intervertebral discs show normal signal patterns and heights. ??The cord has normal signal intensity and size. SEGMENTAL ANALYSIS: At C3-C4, a disc bulge is seen without central canal or neural foraminal narrowing noted. At C4-C5, a disc bulge flattens the thecal sac. ??No central canal or neural foraminal narrowing is noted. At C5-C6, a disc bulge flattens the thecal sac. ??No central canal or neural foraminal narrowing is noted. At C6-C7, a diffuse disc bulge is seen without central canal or neural foraminal narrowing noted. IMPRESSION: CERVICAL SPINE STRAIGHTENING AND MILD SPONDYLOSIS WITHOUT CENTRAL CANAL OR NEURAL FORAMINAL NARROWING NOTED. Interpreting Physician: ??STAR ARNETT M.D. ??Read on: ??Nov 01 2013 10:19A Transcribed by: ??laurie ??On: Nov 01 2013 10:19A Approved Electronically by: ??STAR ARNETT M.D. ??on: ??Nov 01 2013 10:27A Ordering DR: DR LAURA SANDERS Attending DR: DR LAURA SANDERS Procedure Note Provider, MD Tino - 12/26/2016 MRI CERVICAL SPINE Acc#: [id number] DATE OF EXAM: Oct 31 2013 CLINICAL HISTORY: Chest pain and numbness in the left arm. RESULT: TECHNIQUE: Sagittal T1 and T2; axial T1 and T2. FINDINGS: Reversal of the normal cervical curvature is centered at C4. Vertebralbody height and bony alignment are maintained. No abnormal marrow signalis noted. The intervertebral discs show normal signal patterns andheights. The cord has normal signal intensity and size. SEGMENTAL ANALYSIS: At C3-C4, a disc bulge is seen without central canal or neural foraminalnarrowing noted. At C4-C5, a disc bulge flattens the thecal sac. Nocentral canal or neural foraminal narrowing is noted. At C5-C6, a discbulge flattens the thecal sac. No central canal or neural foraminalnarrowing is noted. At C6-C7, a diffuse disc bulge is seen without centralcanal or neural foraminal narrowing noted. IMPRESSION: CERVICAL SPINE STRAIGHTENING AND MILD SPONDYLOSIS WITHOUT CENTRAL CANALOR NEURAL FORAMINAL NARROWING NOTED. Interpreting Physician: STAR ARNETT M.D. Read on: Nov 01 201310:19A Transcribed by: laurie On: Nov 01 2013 10:19A Approved Electronically by: STAR ARNETT M.D. on: Nov 01 201310:27A Ordering DR: DR LAURA SANDERS Attending DR: DR LAURA SANDERS us Historical Provider MD CR MRI PROCEDURES Final Result documented in this encounter Visit Diagnoses Diagnosis Cervical spondylosis without myelopathy Disturbance of skin sensation documented in this encounter Care Teams Ocular Pathologist Relationship Specialty Start Date End Date Laura Sanders MD PCP - General 09/13/13 11/20/16 documented as of this encounter
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
--- OUTSIDE RECORDS SUMMARY | 2024-08-30 03:05 | XMS_ITS | Encounter Summary ---
Author Organization [facility] Facility Care Team Providers Care Stewarding Supervisor Name Role Phone Laura Reid MD Primary Care Provider Encounter Details Date Type Department Care Team (Latest Contact Info) Description 12/16/2013 11:19 AM CDT - 12/16/2013 4:33 PM CDT Hospital Encounter [facility] Panic disorder without agoraphobia; Headache; Other depressive disorder; Anxiety state Social History Tobacco Use Types Packs/Day Years Used Date Smoking Tobacco: Never Assessed Comments Unknown Sex and Gender Information Value Date Recorded Sex Assigned at Not on file Legal Sex 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 Gender Identity Not on file Sexual Orientation Not on file documented as of this encounter Plan of Treatment Not on file documented as of this encounter Procedures Procedure Name Priority Date/Time Associated Diagnosis Comments URINE DRUG SCREEN Routine 12/16/2013 12: 53 PM CDT URINE CHORIONIC GONADOTROPIN (HCG) Routine 12/16/2013 12:53 PM CDT SERUM THYROXINE (T4), FREE Routine 12/16/2013 12:53 PM CDT SERUM THYROID-STIMULATING HORMONE (TSH) Routine 12/16/2013 12:53 PM CDT PLASMA COMPREHENSIVE METABOLIC PANEL Routine 12/16/2013 12:53 PM CDT BLOOD WBC CELL MORPHOLOGIC EXAM, AUTO Routine 12/16/2013 12:53 PM CDT BLOOD CELL COUNT (CBC) Routine 4 12:53 PM CDT DISCHARGE LABORATORY CUMULATIVE REPORT Routine 12/16/2013 12:00 AM CDT documented in this encounter Results * Urine chorionic gonadotropin (HCG) (12/16/2013 12:53 PM CDT) HCG, ur Negative Negative HISTORICAL RESULTS Urine 12/16/2013 12:5 3 PM CDT us Historical Provider LAB BLOOD ORDERABLES Renate medina Result HISTORICAL RESULTS * Urine drug screen (12/16/2013 12:53 PM CDT) Amphetamine, ur None detected HISTORICAL RESULTS Comment: Interpretive Data Screening performed by SLCH immunoassay. ??Samples containing greater than 500 ng/mL methamphetamine/amphetamine or other cross-reactive compounds are reported as positive. ??Presumptive positive specimens will be subject to a second confirmatory [place] [address] if adequate specimen volume remains. Current interpretive data was last revised on 2011. Barbiturates, ur None detected HISTORICAL RESULTS Comment: Interpretive Data Screening performed by [facility]CH immunoassay using 200 ng/mL threshold. Samples containing greater than 200 ng/mL barbiturates or other cross-reacting substances are reported as positive. ??Presumptive positive specimens will be subject to a second confirmatory [place] [address] if adequate specimen volume remains. Current interpretive data was last revised on 2011. Benzodiazepines, ur None detected HISTORICAL RESULTS Comment: Interpretive Data Screening performed by [facility]CH immunoassay using 100 ng/mL threshold. Samples containing greater than 100 ng/mL benzodiazepines or other cross-reacting substances are reported as positive. ??Presumptive positive specimens are not routinely confirmed using a second technique. Current interpretive data was last revised on 2008. Cannabinoids, ur None detected HISTORICAL RESULTS Comment: Interpretive Data Screening performed by SLCH immunoassay using 20 ng/mL threshold. Samples containing greater than 20 ng/mL cannabinoids or other cross-reactive metabolites are reported as positive. ??Presumptive positive specimens will be subject to a second confirmatory [place] [address] if adequate specimen volume remains. Current interpretive data was last revised on 2013. Cocaine metabolites, ur None detected HISTORICAL RESULTS Comment: Interpretive Data Screening performed by SLCH immunoassay using 150 ng/mL threshold. Samples containing greater than 150 ng/mL cocaine metabolites or other cross-reactive compounds are reported as positive. ??Presumptive positive specimens will be subject to a second [place] [address] if adequate specimen volume remains. Current interpretive data was last revised on 2011. Opiates, qual, ur None detected HISTORICAL RESULTS Comment: Interpretive Data Screening performed by SLCH immunoassay using 300 ng/mL threshold. Samples containing greater than 300 ng/mL opiates or other cross-reactive substances are reported as positive. ??Presumptive positive specimens will be subject to a second confirmatory [place] [address] if adequate specimen volume remains. Current interpretive data was last revised on 2011. Phencyclidine, qual, ur None detected HISTORICAL RESULTS Comment: Interpretive Data Screening performed by [facility]CH immunoassay using 25 ng/mL threshold. Samples containing greater than 25 ng/mL phencyclidine or other cross-reacting substances are reported as positive. ??Presumptive positive specimens will be subject to a second confirmatory [place] [address] if adequate specimen volume remains. Current interpretive data was last revised on 2011. Methadone, ur None detected HISTORICAL RESULTS Comment: Interpretive Data Screening performed by SLCH immunoassay using 300 ng/mL threshold. Samples containing greater than 300 ng/mL methadone or other cross-reacting substances are reported as positive. ??Presumptive positive specimens will be subject to a second confirmatory [place] [address] if adequate specimen volume remains. Current interpretive data was last revised on 2011. Urine 12/16/2013 12:5 3 PM CDT us Historical Provider LAB BLOOD ORDERABLES Renate medina Result Performing Organization Address City/[facility] Co de Phone Number HISTORICAL RESULTS * Serum thyroid-stimulating hormone (TSH) (12/16/2013 12:53 PM CDT) TSH 0.66 0.35 - 5.50 mcIUnits/m l HISTORICAL RESULTS Comment: Interpretive Data: TSH concentration may range up to 100 mcIUnit/ml due to surge of TSH production on the first day of life and then fall gradually to adult levels by one month of age. Current inter data was last revised as of 01/05/2006. Serum 12/16/2013 12:5 3 PM CDT Historical Provider MD LAB BLOOD ORDERABLES Renate medina Result Performing Organization Address [facility] de Phone Number HISTORICAL RESULTS * Plasma comprehensive metabolic panel (12/16/2013 12:53 PM CDT) Sodium 139 135 - 145 mmol/L HISTORICAL RESULTS K, pl 3.6 3.3 - 4.9 mmol/L HISTORICAL RESULTS Chloride 110 100 - 114 mmol/L HISTORICAL RESULTS CO2 22 20 - 30 mmol/L HISTORICAL RESULTS A. gap 7 mmol/L HISTORICAL RESULTS Glucose 86 70 - 199 mg/dl HISTORICAL RESULTS Comment: Interpretive Data Random glucose greater than or equal to 200 mg/dL with relevant clinical symptoms is diagnostic for diabetes when repeated on a subsequent day. Reference: Diabetes Care 2005;28:S37-S42. Current interpretive data was last revised on 2013. BUN 10 9 - 18 mg/dl HISTORICAL RESULTS Creatinine 0.7 0.4 - 1.0 mg/dl HISTORICAL RESULTS Calcium 9.3 8.6 - 10.3 mg/dl HISTORICAL RESULTS Protein, pl 7.9 6.5 - 8.5 g/dl HISTORICAL RESULTS Alb 4.7 3.2 - 5.0 g/dl HISTORICAL RESULTS Bilirubin 0.4 0.0 - 1.2 mg/dl HISTORICAL RESULTS Alk phos 76 70 - 260 Units/L HISTORICAL RESULTS AST 21 10 - 50 Units/L HISTORICAL RESULTS ALT 11 10 - 40 Units/L HISTORICAL RESULTS Plasma 12/16/2013 12:5 3 PM CDT us Historical Provider LAB BLOOD ORDERABLES Renate l Result Performing Organization Address City/[facility] Co de Phone Number HISTORICAL RESULTS * Serum thyroxine (T4), free (12/16/2013 12:53 PM CDT) Pathologist [facility] Free T4 1.05 0.80 - 1.80 ng/dl HISTORICAL RESULTS Comment: Interpretive data: Free T4 concentrations rise acutely to as high as 5 ng/dl on the first day of life following TSH surge and then decrease gradually to adult levels by one month of age. Current [facility] data was last revised on 06. Serum 12/16/2013 12:5 3 PM CDT Result [facility] Historical Provider LAB BLOOD ORDERABLES Renate l Result Performing Organization Address [facility] de Phone Number HISTORICAL RESULTS * (ABNORMAL) Blood cell count (CBC) (12/16/2013 12:53 PM CDT) [facility] WBC 6.8 3.8 - 9.8 K/cumm HISTORICAL RESULTS RBC 4.08 3.90 - 5.00 M/cumm HISTORICAL RESULTS Hgb 12.8 12.1 - 15.1 g/dl HISTORICAL RESULTS Hct 38.3 36.1 - 44.3 % HISTORICAL RESULTS MCV 93.9 80.0 - 97.6 fl HISTORICAL RESULTS MCH 31.4 26.7 - 33.7 pg HISTORICAL RESULTS MCHC 33.4 32.7 - 35.5 g/dl HISTORICAL RESULTS Rdw 11.4(L) 11.8 - 14.6 % HISTORICAL RESULTS Platelets 302 140 - 440 K/cumm HISTORICAL RESULTS MPV 10.0 8.1 - 11.9 fl HISTORICAL RESULTS NRBC 0.0 #/100 WBC HISTORICAL RESULTS Blood specimen (specimen) 12/16/2013 12:53 PM CDT Result [facility] Historical Provider LAB BLOOD ORDERABLES Renate l Result Performing Organization Address [facility] Co de Phone Number HISTORICAL RESULTS * Blood WBC cell morphologic exam, auto (12/16/2013 12:53 PM CDT) Neutrophils, abs 3.8 1.5 - 9.4 K/cumm HISTORICAL RESULTS Lymphocytes, abs 2.3 1.0 - 7.2 K/cumm HISTORICAL RESULTS Monocytes, absolute 0.4 0.1 - 1.7 K/cumm HISTORICAL RESULTS Eosinophils, abs 0.2 0.1 - 1.6 K/cumm HISTORICAL RESULTS Basophils, abs 0.0 0.0 - 0.3 K/cumm HISTORICAL RESULTS Immature granulocyte, abs 0.0 0.0 - 0.2 K/cumm HISTORICAL RESULTS Neutrophils 56.3 % HISTORIC AL RESULTS Lymphocytes 34.2 % HISTORIC AL RESULTS Monos 6.0 % HISTORICAL RESULTS Eosinophils 2.6 % HISTORIC AL RESULTS Basophils 0.6 % HISTORICAL RESULTS Immature granulocytes 0.3 % HISTORICAL RESULTS Blood specimen (specimen) 12/16/2013 12:53 PM CDT us Historical Provider MD LAB BLOOD ORDERABLES Renate l Result HISTORICAL RESULTS * Discharge Laboratory Cumulative Report (12/16/2013 12:00 AM CDT) 12/16/2013 Narrative HISTORICAL RESULTS - 12/17/2013 2:34 AM CDT ? [facility] ?Clinical Laboratories ? [address] ? [place] [address] Patient Name: ? MARGAUX AREVALO [facility] Rec Number: ?? [id number] Fin Number: ? [id number] Date: ? 2000 Sex/Age: ?Female 13 years Admit Date: ? 12/16/2013 Discharge Date: ?? 12/16/2013 Doctor: ? Meeta Chelsea Lisset Referring Doctor: None, Referring Facility: ? [facility] Location: ? [facility] Chart Printed: ?12/17/2013 02:34 ?* Abnormal ??C Critical ??f Footnote ??^ Corrected ??L Low ??H High ? i Interp Data ??@ Ref Lab ?Chart Type:Cumulative ? SELECTED ELECTROLYTES ?Test: ?? Sodium ?Plasma Potassium ?? Chloride ? Reference: ??[135-145] ?[3.3-4.9] ?[100-114] ? Units: ?? mmol/L ? mmol/L ? mmol/L 12/16/2013 ?? 12:53:41 ?139 ?3.6 ?110 ?Test: ??Total CO2 ??Anion Gap ? Reference: ?? [20-30] ? Units: ?? mmol/L ? mmol/L 12/16/2013 ?? 12:53:41 ? 22 ?7 ? STANDARD BLOOD CHEMISTRY ?Test: ?? BUN ?Creatinine ??Total Bilirubin ??Glucose i ? Reference: ??[9-18] ?? [0.4-1.0] ?[0.0-1.2] ?[70-199] ? Units: ??mg/dL ? mg/dL ?mg/dL ? mg/dL 12/16/2013 ?? 12:53:41 ? 10 ?0.7 ?0.4 ?86 12/16/2013 12:53:41 Glucose: Interpretive Data Random glucose greater than or equal to 200 mg/dL with relevant clinical symptoms is diagnostic for diabetes when repeated on a subsequent day. Reference: Diabetes Care 2005;28:S37-S42. Current interpretive data was last revised on 2013. ?Test: ??Total Calcium ??Plasma Total Protein ?? Albumin ? Reference: ?? [8.6-10.3] ? [6.5-8.5] ?[3.2-5.0] ? Units: ?mg/dL ?g/dL ? g/dL 12/16/2013 ?? 12:53:41 ?9.3 ?7.9 ?4.7 ?ENZYMES ?Test: ??Alkaline Phosphatase ?ALT ?AST ? Reference: ?[70-260] ?[10-40] ??[10-50] ? Units: ?Units/L ? Units/L ??Units/L 12/16/2013 ?? 12:53:41 ?76 ?11 ? 21 ?BLOOD HORMONES ?Test: ? TSH i ? Free T4 (Free Thyroxine) i ? Reference: ??[0.35-5.50] ?[0.80-1.80] ? Units: ??mcIUnit/mL ? ng/dL 12/16/2013 ?? 12:53:41 ? 0.66 ? 1.05 12/16/2013 12:53:41 TSH: Interpretive Data: TSH concentration may range up to 100 mcIUnit/ml due to surge of TSH production on the first day of life and then fall gradually to adult levels by one month of age. Current [facility] data was last revised as of 01/05/2006. 12/16/2013 12:53:41 Free T4 (Free Thyroxine): Interpretive data: Free T4 concentrations rise acutely to as high as 5 ng/dl on the first day of life following TSH surge and then decrease gradually to adult levels by one month of age. Current [facility] data was last revised on 06. ?URINE HORMONES ?Test: ??Ur hCG, Qual ? Reference: ?? [Negative] ? Units: 12/16/2013 ?? 12:53:32 ? Negative ? URINE DRUG SCREEN ?Test: ??Amphet Class i ??Barbs Class i ? Reference: ? Units: 12/16/2013 ?? 12:53:32 ?None detected ?? None detected 12/16/2013 12:53:32 Amphet Class: Interpretive Data Screening performed by [facility] immunoassay. ??Samples containing greater than 500 ng/mL methamphetamine/amphetamine or other cross-reactive compounds are reported as positive. ??Presumptive positive specimens will be subject to a second confirmatory [place] [address] if adequate specimen volume remains. Current interpretive data was last revised on 2011. 12/16/2013 12:53:32 Barbs Class: Interpretive Data Screening performed by [facility] immunoassay using 200 ng/mL threshold. ??Samples containing greater than 200 ng/mL barbiturates or other cross-reacting substances are reported as positive. ??Presumptive positive specimens will be subject to a second confirmatory [place] [address] if adequate specimen volume remains. Current interpretive data was last revised on 2011. ? URINE DRUG SCREEN ?Test: ??Benzodiazepines i ??Cannabinoids i ? Reference: ? Units: 12/16/2013 ?? 12:53:32 ? None detected ? None detected 12/16/2013 12:53:32 Benzodiazepines: Interpretive Data Screening performed by [facility]CH immunoassay using 100 ng/mL threshold. ??Samples containing greater than 100 ng/mL benzodiazepines or other cross-reacting substances are reported as positive. ??Presumptive positive specimens are not routinely confirmed using a second technique. Current interpretive data was last revised on 2008. 12/16/2013 12:53:32 Cannabinoids: Interpretive Data Screening performed by [facility]CH immunoassay using 20 ng/mL threshold. ??Samples containing greater than 20 ng/mL cannabinoids or other cross-reactive metabolites are reported as positive. ??Presumptive positive specimens will be subject to a second confirmatory [place] [address] if adequate specimen volume remains. Current interpretive data was last revised on 2013. ?Test: ??Cocaine Metabolite i ?? Methadone i ? Reference: ? Units: 12/16/2013 ?? 12:53:32 ? None detected ?None detected 12/16/2013 12:53:32 Cocaine Metabolite: Interpretive Data Screening performed by [facility]CH immunoassay using 150 ng/mL threshold. ??Samples containing greater than 150 ng/mL cocaine metabolites or other cross- reactive compounds are reported as positive. ??Presumptive positive specimens will be subject to a second [place] [address] if adequate specimen volume remains. Current interpretive data was last revised on 2011. 12/16/2013 12:53:32 Methadone: Interpretive Data Screening performed by [facility]CH immunoassay using 300 ng/mL threshold. ??Samples containing greater than 300 ng/mL methadone or other cross-reacting substances are reported as positive. ??Presumptive positive specimens will be subject to a second confirmatory [place] [address] if adequate specimen volume remains. Current interpretive data was last revised on 2011. ?Test: ??Opiate Class i ??Phencyclidine i ? Reference: ? Units: 12/16/2013 ?? 12:53:32 ?None detected ?None detected ? URINE DRUG SCREEN 12/16/2013 12:53:32 Opiate Class: Interpretive Data Screening performed by [facility]CH immunoassay using 300 ng/mL threshold. ??Samples containing greater than 300 ng/mL opiates or other cross-reactive substances are reported as positive. ??Presumptive positive specimens will be subject to a second confirmatory [place] [address] if adequate specimen volume remains. Current interpretive data was last revised on 2011. 12/16/2013 12:53:32 Phencyclidine: Interpretive Data Screening performed by [facility]CH immunoassay using 25 ng/mL threshold. ??Samples containing greater than 25 ng/mL phencyclidine or other cross-reacting substances are reported as positive. ??Presumptive positive specimens will be subject to a second confirmatory [place] [address] if adequate specimen volume remains. Current interpretive data was last revised on 2011. ? COMPLETE BLOOD COUNT ?Test: ? WBC ? RBC ?Hgb ? Reference: ??[3.8-9.8] ??[3.90-5.00] ??[12.1-15.1] ? Units: ?? K/cumm ?M/cumm ?g/dL 12/16/2013 ?? 12:53:41 ?6.8 ? 4.08 ? 12.8 ?Test: ?Hct ?Platelet Ct ?MCV ? Reference: ??[36.1-44.3] ?? [140-440] ?? [80.0-97.6] ? Units: ? % ?K/cumm ? fL 12/16/2013 ?? 12:53:41 ? 38.3 ?302 ?93.9 ?Test: ?MCH ?MCHC ?RDW ? Reference: ??[26.7-33.7] ??[32.7-35.5] ??[11.8-14.6] ? Units: ?pg ?g/dL ? % 12/16/2013 ?? 12:53:41 ? 31.4 ? 33.4 ? 11.4 ??L ?Test: ? MPV ?NRBC Auto ? Reference: ??[8.1-11.9] ? Units: ?fL ? /100WBC 12/16/2013 ?? 12:53:41 ?10.0 ?0.0 ? AUTOMATED WHITE CELL DIFFERENTIAL ?Test: ??Neut Pct Auto ??Lymph Pct Auto ??[place] Pct Auto ? Reference: ? Units: ?% ? % ? % 12/16/2013 ?? 12:53:41 ?56.3 ?34.2 ?6.0 ?Test: ??Eos Pct Auto ??Baso Pct Auto ??Imm Gran Pct Auto ? Reference: ? Units: ? % ?% ?% 12/16/2013 ?? 12:53:41 ?2.6 ?0.6 ?0.3 ? AUTOMATED WHITE CELL DIFFERENTIAL ?Test: ??Neut Abs Auto ??Lymph Abs Auto ??[place] Abs Auto ? Reference: ?[1.5-9.4] ? [1.0-7.2] ? [0.1- 1.7] ? Units: ? K/cumm ?K/cumm ?K/cumm 12/16/2013 ?? 12:53:41 ?3.8 ? 2.3 ? 0.4 ?Test: ??Eos Abs Auto ??Baso Abs Auto ??Imm Gran Abs Auto ? Reference: ?? [0.1-1.6] ?[0.0-0.3] ?[0.0-0.2] ? Units: ? K/cumm ? K/cumm ? K/cumm 12/16/2013 ?? 12:53:41 ?0.2 ?0.0 ?0.0 us Historical Provider LAB BLOOD ORDERABLES Renate l Result HISTORICAL RESULTS documented in this encounter Visit Diagnoses Diagnosis Panic disorder without agoraphobia Headache Other depressive disorder Anxiety state Anxiety state, unspecified documented in this encounter Care Teams Stewarding Supervisor Relationship Specialty Start Date End Date Laura Reid MD PCP - General 09/13/13 11/20/16 documented as of this encounter
--- OUTSIDE RECORDS SUMMARY | 2024-08-30 03:05 | XMS_ITS | Encounter Summary ---
Author Organization [facility] Healthcare Address [address] [place] [address] Care Team Providers Care Carrier Washer Name Role Phone Nubia Brown Primary Care Provider Reason for Visit * Reason Comments Headache Encounter Details Date Type Department Care Team (Late st Contact Info) Description 07/10/2021 3:46 PM WEB DEVELOPMENT CONSULTANT - 07/10/2021 5:20 PM WEB DEVELOPMENT CONSULTANT Emergency [facility] Emergency Department [address] [place] [address] Discharge Disposition: Left without being seen Social History Tobacco Use Types Packs/Day Years Used Date Smoking Tobacco: Never Smokeless Tobacco: Never Comments Unknown Sex and Gender Information Value Date Recorded Sex Assigned at Not on file Legal Sex Female 1:59 AM WEB DEVELOPMENT CONSULTANT Gender Identity Not on file Sexual Orientation Not on file documented as of this encounter Last Filed Vital Signs Vital Sign Reading Time Taken Comments Blood Pressure 154/91 07/10/2021 4:52 PM WEB DEVELOPMENT CONSULTANT Pulse 95 07/10/2021 4:52 PM WEB DEVELOPMENT CONSULTANT Temperature 37.1 ??C (98.7 ??F) 07/10/2021 4:52 PM CS T Respiratory Rate 17 07/10/2021 4:52 PM WEB DEVELOPMENT CONSULTANT Oxygen Saturation 100% 07/10/2021 4:52 PM WEB DEVELOPMENT CONSULTANT Inhaled Oxygen Concentration - - Weight 72.6 kg (160 lb) 07/10/2021 4:52 PM WEB DEVELOPMENT CONSULTANT Height 157.5 cm (5' 2 ) 07/10/2021 4:52 PM WEB DEVELOPMENT CONSULTANT Body Mass Index 29.26 07/10/2021 4:52 PM WEB DEVELOPMENT CONSULTANT documented in this encounter Discharge Diagnoses Diagnosis Procedure and treatment not carried out due to patient leaving prior to being seen by health care provider - PROCEDURE AND TREATMENT NOT CARRIED OUT DUE TO PATIENT LEAVING PRIOR TO BEING SEEN BY HEALTH CARE [place] documented in this encounter Medications at Time [...] mouth daily. AMOXICILLIN 500 mg capsule 03/18/2018 3 citalopram [...] Discharge Disposition Disposition Code Departure Means Destination Left without being seen documented in this encounter ED Notes * Kunal Matos RN - 07/10/2021 4:51 PM CST Pt c/o of headache started one week ago today it got worse with neck spasm legs and arms are weak and tired DEVELOPMENT CONSULTANT documented in this encounter Plan of Treatment Not on file documented as of this encounter Visit Diagnoses Not on filedocumented in this encounter Care Teams Carrier Washer Relationship Specialty Start Date End Date Nubia Brown PA [address] [place] [address] PCP - General 10/04/20 documented as of this encounter
[2024-09-07] VITALS (13 sets, daily range): BP systolic 116–148; BP diastolic 66–94; PULSE 62–93; BMI 34.2
[2024-09-07 17:43] LABS: Basophils Percent Auto 0.3 % (0.2-1.2); Eosinophils Percent Auto 0.2 % (0-4.4); Hemoglobin 10.1 g/dL (12.0-15.0); Immature Granulocyte Absolute 0.03 K/mm3 (0.00-0.031); Immature Granulocyte Percent A 0.3 % (0-0.5); Lymphocytes Absolute Auto 1.83 K/mm3 (0.9-3.2); Lymphocytes Percent Auto 21.1 % (18.3-44.2); Mean Corpuscular HGB Conc 32.6 g/dl (32-36); Mean Corpuscular Hemoglobin 32.5 pg (26-34); Mean Corpuscular Volume 99.7 fl (80-100); Mean Platelet Volume 11.2 fl (7.4-10.4); Monocytes Absolute Auto 0.6 K/mm3 (0.1-0.6); Monocytes Percent Auto 7.3 % (2.6-8.5); Neutrophils Absolute Auto 6.1 K/mm3 (1.3-6.7); Neutrophils Percent Auto 70.8 % (45.5-73.1); Platelet Count Result 223 k/mm3 (150-375); Red Blood Count 3.11 M/mm3 (4.2-5.4); White Blood Count 8.7 K/mm3 (4.5-10.0)
[2024-09-07] MEDS: miSOPROStol 25 MCG TABLET BUCCAL ×2 (18:14→22:13)
--- NOTE | 2024-09-07 18:16 | LDADM ---
This patient, Josephine Alejandre, was admitted to Labor/Delivery/Recovery 109 on 09/07/24 at 15:52. Plans for labor, pain management and were discussed with patient. Patient/family oriented to hospital policies and general routines including ID bracelet, bed and alarms, visiting hours, pain management, procedures, bathroom and other care routines, personal items, smoking policy, room service/diet and guest tray routines, security routines, and visiting hours. Patient/Family are encouraged to report perceived risks to care and to ask questions if they do not understand what they are told or what they should do. See [facility] for further documentation.
[2024-09-07 18:36] LABS: HIV 1/2 Ab P24 Ag Result Negative (Negative)
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
[2024-09-07 19:29] LABS: Rapid Plasma Reagin Non-Reactive (NonReactive)
[2024-09-08] VITALS (143 sets, daily range): BP systolic 102–170; BP diastolic 44–119; PULSE 50–186; RESP 12–16; TEMP 36.1–37.1; O2SAT 84–100
[2024-09-08] MEDS: miSOPROStol 25 MCG TABLET BUCCAL (03:07)
--- NOTE | 2024-09-08 07:28 | WPDOBADMIT ---
Obstetrics - Admit Note Admission Note: record reviewed. No pertinent additions to the history and/or any subsequent changes in the physical findings that are not consistent with the expected course of the were found. Additions to the history and/or subsequent changes in the physical findings follow. Here for MIL. U/s done last pm at bedside as s/p external version did verify vertex. Cytotec overnight. Now 2-/-2 AROM with clear fluid. FHTs cat. I. Pitocin going forward. Plans epidural.
[2024-09-08] MEDS: LACTATED RINGERS 1,000 ML 125 ML IV CONT ×2 (08:43→09:27)
[2024-09-08] MEDS: SODIUM CHLORIDE 0.9% IV 300 ML 600 ML I-UTERINE ×2 (09:20→12:37)
--- NOTE | 2024-09-08 12:36 | PM.OBPNLAB ---
Pain Control Date/time seen: 09/08/24 12:36 Pain control: epidural Pelvic Exam Dilation (cm): 7 Effacement (%): 80 station: -1 Amniotic membrane status: Ruptured Contractions Monitor mode: Internal Contraction pattern: Regular Status status: Category ll Comments: Called at 1139 with report that pitocin never started, epidural placed, and variables and recurrent lates were occuring. Also, told decreased variability. Requested strip be faxed to my office. At 1155, I called back as no strip received. At 1213 strips received on my cell phone but no fax. Hard to read in pieces in small print so I arrived at hospital. Cervix checked and now 7 cm. FHTs over last 15 min without decels. Prior decels a mix of variables and lates. Due to rapid change, will continue with labor and will try amnioinfusion with bolus then continuous. Assessment and Plan Assessment: active labor and induction ongoing
[2024-09-08] MEDS: SODIUM CHLORIDE 0.9% IV 1,000 ML 150 ML I-UTERINE (13:15)
[2024-09-08] MEDS: OXYTOCIN 30 UNITS/NS 500 ML 30 UNITS/500 ML BAG 999 UNITS IV CONT (14:28)
--- NOTE | 2024-09-08 14:37 | P.PCNOB_ITS ---
OB - Vaginal Delivery Note Procedure Delivery date: 09/08/24 Events: Other (s/p external cephalic version) Intrapartal Events: Decelerations Induction method: AROM and Per Misoprostol Protocol Delivery monitor: External FHT and Internal Uterine Route of delivery: (1 contraction) Episiotomy description: None Laceration Description: Perineal - 1st Degree (bilateral) Delivery repair: vicryl (3-0) Specimen: Yes (placenta) Quantitative Blood Loss (ml): 150 Anesthesia type: Epidural Disposition: Floor Complications: No immediate complications [place] Baby Date of : 09/08/24 Gestational Age by Date: 39 Infant gender: Female presentation: vertex position: Right Occiput Anterior Placenta delivery description: Spontaneous Cord Vessel Description: 3 Vessels, Nuchal Cord (tight) and Delayed Cord Clamping score one minute: 8 score five minutes: 9
[2024-09-08] MEDS: OXYTOCIN 30 UNITS/NS 500 ML 30 UNITS/500 ML BAG 125 UNITS IV CONT (15:35)
[2024-09-08] MEDS: DOCUSATE SODIUM 100 MG CAPSULE PO (17:23)
--- NOTE | 2024-09-08 17:44 | OBPPTRN ---
Patient transferred to post room #[id number] (wheelchair ). Support person present. Oriented to unit, room, information board, rooming in, admission packet and security measures. Patient verbalizes understanding.
[2024-09-09] MEDS: IBUPROFEN 600 MG TABLET PO ×3 (03:10→18:57)
[2024-09-09 04:30] VITALS: BP 137/61; PULSE 75; RESP 16; TEMP 36.3; O2SAT 100
[2024-09-09 05:40] LABS: Hematocrit 28.2 % (37.0-47.0)
[2024-09-09] MEDS: DOCUSATE SODIUM 100 MG CAPSULE PO ×2 (07:54→17:34)
[2024-09-09] MEDS: POLYSACCHARIDE IRON COMPLEX 150 MG CAPSULE PO ×2 (07:54→17:34)
[2024-09-09 08:00] VITALS: BP 152/90; PULSE 73; RESP 18; TEMP 36.8; O2SAT 100
--- NOTE | 2024-09-09 10:26 | WPDANLDPN2 ---
Anes-Prog Note L&D Date/Time: 09/09/24 10:26 Comfortable throughout: labor and delivery Neuraxial method: epidural Epidural/Spinal procedure site: clean & non-tender Neuro status: Neuro function grossly intact. Cardiovascular status: normal Respiratory status: normal Airway patency: baseline Mental status: baseline Post-Op hydration status: normal Vital Signs: Last Vital Signs Temp 36.8 C 09/09/24 08:00 Pulse 73 09/09/24 08:00 Resp 18 09/09/24 08:00 BP 152/90 H 09/09/24 08:00 Pulse Ox 100 09/09/24 08:00 O2 Del Method Room Air 09/08/24 17:40 Pain score (VAS): 0 Post-procedural complaints: none Patient feedback: Patient satisfied with anesthetic care.
--- NOTE | 2024-09-09 11:02 | PM.OBPNVD ---
OB - PN: Subj Subjective Date/time seen: 09/09/24 11:02 Patient comments: no complaints, pain well controlled and other (No PIH sx) [place] baby status: doing well OB - PN: Obj Data Labs 09/09/24 04:01 Labs: Laboratory Results - last 24 hr 09/09/24 04:01 Hgb 9.0 L Hct 28.2 L OB - PN A/P Plan day: 1 Plan: routine care Comments: BP's elevated. No PIH sx. Will obs. Time Spent With Patient Time: Total time spent is greater than 50% in coordination of care (as documented) at patient's floor/unit and/or counseling patient: Exam : Bimanual exam- vagina & uterus: other (Uterus firm, nt @U)
--- NOTE | 2024-09-09 12:00 | PC.NURSE ---
Infant returned to mother after blood sugar was taken in the nursery and mother expressed interest in . This RN assisted mother with undressing infant to stimulate her awake for feeding and showed mother different positions that she could breastfeed in. She stated that football position is the most comfortable. Encouraged understanding of the benefits of skin to skin, stimulating with massage touch, changing positions to encourage wakefulness, how to watch for early feeding cues, responsive feeding, feeding on demand (aiming for 8-12 times in 24 hours, about every 2-3 hours), milk production, building/maintaining a milk supply, duration of feeding, signs of adequate intake/output and how to record on the feeding sheet. Mother works well with her infant with encouragement and education. Reviewed positioning and ear, shoulder, hip alignment, supporting the breast to facilitate a deep latch, asymmetrical latch (off-center), leading with the chin with a big, open, wide gape and body close to mother. latched optimally to the right breast in football position. Education given to the mother of how to visualize the suckling (with good rocking jaw motion), swallows (dropping of the lower jaw) and how to listen for drinking at the breast (the ka sound). Infant was able to maintain latch without pain to mother protecting the nipple with optimal positioning and latching. Mother will call if it has been 2 -2.5 hours since the start of the last , if infant does not latch, or if there is discomfort with . Reported to the Primary RN.
[2024-09-09 12:12] VITALS: BP 131/84; PULSE 85; RESP 16; TEMP 37.2; O2SAT 100
--- NOTE | 2024-09-09 15:43 | PCCCNOTE ---
Met with pt. today. Pt. admits to marijuana use during the first part of her . Denies any use since June. She was not tested during admission, neither was baby. Pt. confirms she still has resources from when CC spoke to her in June. Plans to utilize [facility] services at discharge. Has all necessary belongings for baby including a car seat, crib, supplies for clothing and diapers. She now plans to breast feed baby, attempts to work with RN to latch during stay here. Per RN there is concern with latching and feeding and baby may be here for a few days to ensure weight gain. Pt. does have a breast pump at home to use. Pt. denies any other needs.
[2024-09-10] MEDS: IBUPROFEN 600 MG TABLET PO ×2 (02:22→08:35)
[2024-09-10 08:30] VITALS: BP 137/92; PULSE 82; RESP 16; TEMP 36.9; O2SAT 100
[2024-09-10] MEDS: DOCUSATE SODIUM 100 MG CAPSULE PO (08:35)
[2024-09-10] MEDS: POLYSACCHARIDE IRON COMPLEX 150 MG CAPSULE PO (08:35)
[2024-09-10] MEDS: MULTIVIT/MIN/PREN/FOL AC/IRON TABLET 1 TAB PO (08:36)
[2024-09-10] MEDS: LANOLIN (LANSINOH) 7.5 GM CREAM 1 APPLIC TOPICAL (08:36)
--- NOTE | 2024-09-10 09:00 | PC.NURSE ---
Called to patient room to assist with waking for feeding. will wake but when placed to the breast she will latch but not suck. Mother encouraged to do skin to skin and attempt feeding again in 30 minutes or when begins to show feeding cues. Patient will call this RN for assistance if she is unable to latch in 30 minutes. Primary RN updated.
--- NOTE | 2024-09-10 10:00 | PC.NURSE ---
Checked in with patient to see if feeding was successful - patient was able to wake infant for feeding. Infant nursed for 15 minutes.
--- NOTE | 2024-09-10 10:07 | P.PNOB_ITS ---
OB - PN: Subj Subjective Date/time seen: 09/10/24 10:07 Patient comments: no complaints, pain well controlled and other (no PIH sx) baby status: doing well OB - PN: Obj Data Labs 09/09/24 04:01 OB - PN A/P Plan day: 2 Plan: routine care, discharge home and other (unsure bc until vasectomy) Comments: BP's not checked as ordered yesterday. This am is ok but slightly elevated still. Will have patient follow up here for pp and in 1 week at office. Call if any PIH sx. Time Spent With Patient Time: Total time spent is greater than 50% in coordination of care (as documented) at patient's floor/unit and/or counseling patient: Exam 2 : Bimanual exam- vagina & uterus: other (Uterus firm, nt @U)
--- NOTE | 2024-09-10 10:08 | P.DS_ITS ---
DS: Admitting Diagnosis Discharge Date 09/10/24 Admitting Diagnosis IUP 39 wks s/p external version MIL DS: Discharge Diagnosis Discharge Diagnosis (1) (normal spontaneous vaginal delivery): Code(s): O80 - Encounter for full-term uncomplicated delivery Status: Acute (2) Gestational HTN: Code(s): O13.9 - Gestational [-induced] hypertension without significant proteinuria, unspecified trimester Status: Acute OB - DS: Summary OB Procedures : NST, Ultrasound and External version OB Procedures Intrapartum: Spontaneous Vag Delivery OB Procedures: : None Peripartum Data Delivery Method: Natural Vaginal Laceration Description: Perineal - 1st Degree (bilateral) Episiotomy description: None Procedures: Procedures Operation Date: 08/23/24 07:30 <No data on this case meets the specified criteria> complications: other (pp hypertension) Time Spent with Patient Time attestation: Total time spent providing and/or coordinating discharge services: DS: Data Data Completed and Pending Pending studies at discharge: Pending at discharge 09/09/24 10:15 Surgical [PTH] Routine Discharge Plan Discharge Attending physician on discharge: Chata Wiley Discharging Clinician: Chata Wiley Anticipated Discharge Date/Time: 09/10/24 10:12 Patient Disposition: Home, Self-Care Activity: may shower and pelvic rest Diet: regular Patient Instructions: Antibiotic Form Patient Language: [place] Citizen Stand Alone Forms: General Discharge Information Follow-up/Referrals: Chata Wiley MD [Physician] - 1 Week (1 week BP check 6 week pp) Discharge Medications: Continued prenat.vits,travis,[id number]-[id number] Tablet 1 tablet PO DAILY ergocalciferol (vitamin D2) 1,250 mcg (50,000 unit) capsule 50,000 unit PO WEEKLY Patient Comments: Takes every Thursday Discontinued cephalexin 500 mg capsule 500 mg PO DAILY docusate sodium [Colace] 100 mg capsule 100 mg PO DAILY PRN (Reason: constipation) Qty: 10 0RF Date of admission: 09/07/24 15:52 Primary Care Provider: Sam Webb Admitting Provider: Chata Wiley Attending physician on admission: Chata Wiley Condition: Stable
[2024-09-10 12:35] VITALS: BP 144/90; PULSE 80
[2024-09-10 16:00] VITALS: BP 140/88; PULSE 78
[2024-09-12 08:36] VITALS: BP 161/100; PULSE 78; RESP 18; TEMP 36.9; O2SAT 100
== END 2024-09-10 17:00 | disposition home or self-care (01) | DRG 560 ==
LOC: ANHLDR 16:12 → ANHOB2 09-08 17:27
PROVIDERS: Admitting Provider Obstetrics & Gynecology Gynecology; PCP Family Medicine; Visit Provider Obstetrics & Gynecology Gynecology
DX: O69.1XX0 Labor and delivery complicated by cord around neck, with compression, not applicable or unspecified (principal); Z37.0 Single live birth; Z3A.39 39 weeks gestation of pregnancy; O70.0 First degree perineal laceration during delivery
CPT/HCPCS: 36415; 85014; 85018; 85025; 86592; 86703; 86850; 86900; 86901; 88307; A9270; G0432; J2590; J2795; J7030; J7120

== ENCOUNTER 2024-09-12 08:55 | Outpatient (CLI) | payer OTHER, SELFPAY ==
[2024-09-12] VITALS (15 sets, daily range): BP systolic 137–155; BP diastolic 69–106; PULSE 65–149
[2024-09-12] MEDS: ACETAMINOPHEN 500 MG TABLET 1000 MG PO (09:16)
[2024-09-12 09:46] LABS: Basophils Absolute Auto 0.1 K/mm3 (0.0-0.1); Basophils Percent Auto 0.5 % (0.2-1.2); Eosinophils Absolute Auto 0.2 K/mm3 (0-0.3); Eosinophils Percent Auto 1.8 % (0-4.4); Hematocrit 31.1 % (37.0-47.0); Hemoglobin 9.9 g/dL (12.0-15.0); Immature Granulocyte Absolute 0.05 K/mm3 (0.00-0.031); Immature Granulocyte Percent A 0.5 % (0-0.5); Lymphocytes Absolute Auto 1.28 K/mm3 (0.9-3.2); Lymphocytes Percent Auto 11.7 % (18.3-44.2); Mean Corpuscular HGB Conc 31.8 g/dl (32-36); Mean Corpuscular Hemoglobin 31.8 pg (26-34); Mean Platelet Volume 10.5 fl (7.4-10.4); Monocytes Absolute Auto 0.8 K/mm3 (0.1-0.6); Monocytes Percent Auto 6.9 % (2.6-8.5); Neutrophils Absolute Auto 8.6 K/mm3 (1.3-6.7); Neutrophils Percent Auto 78.6 % (45.5-73.1); Platelet Count Result 249 k/mm3 (150-375); Red Blood Count 3.11 M/mm3 (4.2-5.4); Red Cell Distribution Width 12.9 % (11.5-14.5); White Blood Count 10.9 K/mm3 (4.5-10.0)
--- NOTE | 2024-09-12 09:55 | PC.NURSE ---
Pt here after elevated blood pressure at follow up visit. Upon admission pt states she just hasn't felt like eating, she ate once yesterday. She has not been drinking well either. Pt states she has a history of depression. She states she is not currently on medication. Discussed with her talking to a therapist and possibly Dr. Wiley about medications.
[2024-09-12 09:58] LABS: Platelet Estimate Adequate (Adequate)
[2024-09-12 09:59] LABS: Schistocytes None Seen
[2024-09-12 10:01] LABS: Alanine Aminotransferase 10 U/L (6-35); Albumin Level 3.5 g/dL (3.5-5.1); Alkaline Phosphatase 84 U/L (38-126); Anion Gap 10 mmol/L (4-12); Aspartate Amino Transferase 22 U/L (14-36); Bilirubin,Total 0.5 mg/dL (0.2-1.3); Blood Urea Nitrogen 12 mg/dL (7-17); Calcium 8.6 mg/dL (8.4-10.2); Carbon Dioxide 22 mmol/L (22-30); Chloride 106 mmol/L (98-107); Estimated Glomerular Filt Rate > 60; Glucose 79 mg/dL (65-110); Sodium 138 mmol/L (137-145); Uric Acid 5.2 mg/dL (2.5-7.5)
[2024-09-12] MEDS: NIFEdipine 30 MG TAB.ER.24 PO (10:26)
--- NOTE | 2024-09-12 10:54 | PC.NURSE ---
Spoke with pt alone, pt states she has no thoughts of hurting herself or the baby. States her parents are sort of supportive but sort of not. States her mom just has a hard time understanding depression. Instructed pt I spoke with Lisa Boyer and encouraged her to call the office as she could get an appt for Thursday morning. Also, instructed pt to call Dr. Wiley's office for an appt later this week.
--- OUTSIDE RECORDS SUMMARY | 2024-09-15 12:05 | XMS_ITS | Referral Summary ---
Author Organization [facility] Address [address] [place] [address] Care Team Providers Care Supervisor Aircraft Maintenance Name Role Phone Laura Reid MD Primary Care Provider [phone] Laura Reid MD Unavailable [phone] Source Comments [facility],non-owned Affiliates and Associated Physician Practices is amultiple site organization consisting of ambulatory clinics and hospital sitesin [place], [place], [place] and [place]. This disclosure is being madepursuant to the Care Everywhere program and may not contain all information available regarding this patient. Last updated 18.[facility] Allergies Active Allergy Reactions Criticality Noted Date [...] Oxygen Concentration 30% 10/29/2019 4 :00 PM BLOCK PILER Weight 59.4 kg (131 lb) 11/24/2019 11:39 [...] on file Medical Devices Implanted Type Area Change Number Operator Device Identifier Shelf Expiration Date Model / Serial / Lot Patch Srg 4x2in Slnt Evarrest Fbrn - [id number] Implanted:Qty: 1 on 10/27/2019 by Sam Landry MD at [facility] N/A: Abdomen [employer] 11/18/2020 [id number] / Advance Directives * Full Code (Latest Code Status on File) Date Activated Date Inactivated Comments 10/27/2019 6:13 AM 11/09/2019 1:32 PM * Full Code Date Activated Date Inactivated Comments 10/27/2019 6:13 AM 10/27/2019 6:13 AM Care Teams Supervisor Aircraft Maintenance Relationship Specialty Start Date End Date Laura Reid MD PCP - General Pediatrics 10/28/19 Laura Reid MD Pediatrics 10/28/19
--- OUTSIDE RECORDS SUMMARY | 2024-09-15 12:05 | XMS_ITS | Clinical Summary ---
Author Organization [facility] Address [address] [address] Care Team Providers Care Tow Mate Name Role Phone Laura Reid MD Primary Care Provider Laura Reid MD Unavailable [phone] Source Comments [facility],non-owned Affiliates and Associated Physician Practices is amultiple site organization consisting of ambulatory clinics and hospital sitesin [place], [place], [place] and [place]. This disclosure is being madepursuant to the Care Everywhere program and may not contain all information available regarding this patient. Last updated 18.[facility] Allergies Active Allergy Reactions Criticality Noted [...] Oxygen Concentration 30% 10/29/2019 4 :00 PM MARKETING CO OP Weight 59.4 kg (131 lb) 11/24/2019 11:39 AM CDT Height 157.5 cm (5' 2 ) 11/24/2019 11:39 AM CDT Body Mass Index 23.96 11/24/2019 11:39 AM CDT Plan of Treatment Health Maintenance Due Date Last Done Comments PAP SMEAR 1998 HIV SCREENING 2013 HPV VACCINE (1 - 3-dose series) 2013 HEPATITIS C SCREENING 02/16/2016 DTAP/TDAP/TD VACCINES (1 - Tdap) 2017 HEPATITIS B VACCINE (1 of 3 - 19+ 3-dose series) 2017 PNEUMOCOCCAL VACCINE (1 of 2 - PCV) 2017 COVID-19 VACCINE (1 - 2023-2 5 season) 2024 INFLUENZA VACCINE (#1) 2024 DEPRESSION SCREENING 08/24/2024 ZOSTER VACCINE (1 of 2) 02/21/2048 HIB VACCINE Aged Out No longer eligi ble based on patient's age to complete this topic MENINGOCOCCAL (Group B) VACCINE Aged Out No longer eligible based on patient's age to complete this topic MENINGOCOCCAL VACCINE Aged Out No sharifa tor eligible based on patient's age to complete this topic Medical Devices Implanted Type Area Spiral Runner Device Identifier Shelf Expiration Date Model / Serial / Lot Patch Srg 4x2in Slnt Evarrest Fbrn - [id number] Implanted:Qty: 1 on 10/27/2019 by Sam Landry MD at [facility] N/A: Abdomen [employer] 11/18/2020 [id number] / Advance Directives * Full Code (Latest Code Status on File) Date Activated Date Inactivated Comments 10/27/2019 6:13 AM 11/09/2019 1:32 PM * Full Code Date Activated Date Inactivated Comments 10/27/2019 6:13 AM 10/27/2019 6:13 AM Care Teams Tow Mate Relationship Specialty Start Date End Date Laura Reid MD PCP - General Pediatrics 10/28/19 Laura Reid MD Pediatrics 10/28/19
--- OUTSIDE RECORDS SUMMARY | 2024-09-15 12:06 | XMS_ITS | Encounter Summary ---
Author Organization [facility] Address [address] 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 Showing future appointments within next 90 days with a meds authorizing provider and meeting all other requirements ON COUNTER FEEDER documented in this encounter Plan of Treatment Not on file documented as of this encounter Visit Diagnoses Diagnosis Insomnia, unspecified type documented in this encounter Additional Health Concerns Infection Onset Date Last Indicated Resolved Time COVID - 19 12/17/2020 12/17/2020 12/19/2020 8:14 AM CDT Assessment Noted Time PHQ-9 Depression Total Score: 22 020 11:00 AM CARTON COUNTER FEEDER documented as of this encounter Care Teams Nursery School Teacher Relationship Specialty Start Date End Date Nubia Brown PAC [address] [place] [address] PCP - General Physician Manager Cosmetics 08/13/20 03/01/23 Provider, None [place] PCP - General 03/15/23 documented as of this encounter
--- OUTSIDE RECORDS SUMMARY | 2024-09-15 12:06 | XMS_ITS | Clinical Summary ---
Author Organization [facility] Virtual Care Address [facility] [place] [address] Phone Care Team Providers Care Sheet Tester Name Role Phone Nubia Brown Primary Care Provider [phone] Allergies Active Allergy Reactions Criticality Noted Date [...] on file Legal Sex Female 1:59 AM MED SPEC Gender Identity Not on file Sexual Orientation Not on file Obstetrics History Last Filed Vital Signs Vital Sign Reading Time Taken Comments Blood Pressure 135/89 10/27/2022 9:01 AM MED SPEC Pulse 89 10/27/2022 9:01 AM MED SPEC Temperature 36.6 ??C (97.9 ??F) 10/27/2022 9:01 AM CS T Respiratory Rate 16 10/12/2022 10:36 PM MED SPEC Oxygen Saturation 96% 10/27/2022 9:01 AM MED SPEC Inhaled Oxygen Concentration - - Weight 83.5 kg (184 lb) 10/27/2022 9:01 AM MED SPEC Height 157.5 cm (5' 2 ) 10/27/2022 9:01 AM MED SPEC Body Mass Index 33.65 10/27/2022 9:01 AM MED SPEC Plan of Treatment Health Maintenance Due Date [...] (2 - Td or Tdap) 02/11/2031 [place] [address] [employer] [facility] H[facility] [place] [address] [place] [address] [facility] Care Teams Sheet Tester Relationship Specialty Start Date End Date Nubia Brown PA 2 [facility] [address] [address] PCP - General 10/04/20
--- OUTSIDE RECORDS SUMMARY | 2024-09-15 12:06 | XMS_ITS | Encounter Summary ---
Author Organization [facility] Address [address] [place] [address] Care Team Providers Care Catalog Specialist Name Role Phone Laura Reid MD Primary Care Provider [phone] Laura Reid MD Primary Care Provider [phone] Laura Reid MD Unavailable [phone] Reason for Visit * Reason Onset Date Comments POST-OP PROBLEM 09/23/2019 Encounter Details Date Type Department Care Team (Late Contact Info) Description 09/23/2019 Telephone [facility] [address] [place] [address] Albert Huddleston MD [address] [place] [address] POST-OP PROBLEM Social History Tobacco [...] after 6 hours of drinking Mag Citrate. L SPONGE MAKING MACHINE OPERATOR * Telephone Encounter - Gamal Cotter - 09/23/2019 3:41 PM CST Pt called in stating she has not had a bowel movement since she had surgery or Thursday. She also states her bloating is getting worse and it's uncomfortable. Callback#[phone] L SPONGE MAKING MACHINE OPERATOR documented in this encounter Plan of Treatment Not on file documented as of this encounter Visit Diagnoses Not on filedocumented in this encounter Care Teams Catalog Specialist Relationship Specialty Start Date End Date Laura Reid MD PCP - General Pediatrics 07/06/15 10/27/19 Laura Reid MD PCP - General Pediatrics 10/28/19 Laura Reid MD Pediatrics 10/28/19 documented as of this encounter
--- OUTSIDE RECORDS SUMMARY | 2024-09-15 12:06 | XMS_ITS | Encounter Summary ---
Author Organization [facility] Address [address] [place] [address] Care Team Providers Care Campaign Developer Name Role Phone Laura Reid MD Primary Care Provider [phone] Laura Reid MD Unavailable [phone] Reason for Visit * Reason Onset Date Comments Results 08/22/2020 Encounter Details Date Type Department Care Team (Late st Contact Info) Description 08/22/2020 Telephone [facility] [address], [place] [id number] Albert Huddleston MD [address] [place] [address] Results Social History Tobacco Use [...] back in the spring with call back [phone] [employer] documented in this encounter Plan of Treatment Not on file documented as of this encounter Visit Diagnoses Not on filedocumented in this encounter Care Teams Campaign Developer Relationship Specialty Start Date End Date Laura Reid MD PCP - General Pediatrics 10/28/19 Laura Reid MD Pediatrics 10/28/19 documented as of this encounter
--- OUTSIDE RECORDS SUMMARY | 2024-09-15 12:06 | XMS_ITS | Patient Health Summary ---
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 Unit ABO O [facility] Unit Rh POS [facility] Product Number WBL [facility] Unit Donor # [id number] [facility] Unit Status released [facility] Product Code W1243R30 [facility] Blood Type Barcode 5100 [facility] Blood Bank BLOOD SPECIMEN / Unknown 10/27/2019 1:43 AM INNOVATION ANALYST 10/27/2019 1:43 AM INNOVATION ANALYST Sam Landry MD LAB - BLOOD BANK OR DERABLES Performing Organization Address City/[facility]/ZIP Co de Phone Number [facility] [address] [place] [address] * PREPARE PLATELET PHERESIS UNIT(S), 1 Units (10/27/2019 1:43 AM INNOVATION ANALYST) Unit Description PL Pheres LR IRR [facility] Unit ABO A [facility] Unit Rh NEG [facility] Product Number P6 [facility] Unit Donor # [id number] [facility] Unit Status [facility] Product Code [id number] [facility] Blood Type Barcode 0600 [facility] Blood Bank BLOOD SPECIMEN / Unknown 10/27/2019 1:43 AM INNOVATION ANALYST 10/27/2019 1:43 AM INNOVATION ANALYST Fiorella Jaffe MD LAB - BLOOD BANK ORD ERABLES Performing Organization Address City/[facility]/ZIP Co de Phone Number [facility] [address] [place] [address] * PREPARE FFP UNIT(S), 1 Units (10/27/2019 1:43 AM INNOVATION ANALYST) Only the most recent of2 resultswithin the time period is included. Unit Description Plasma, Thawed [facility] Unit ABO A [facility] Unit Rh NEG [facility] Product Number F00 [facility] Unit Donor # [id number] [facility] Unit Status transfused [facility] Product Code [id number] [facility] Blood Type Barcode 0600 [facility] Blood Bank BLOOD SPECIMEN / Unknown 10/27/2019 1:43 AM INNOVATION ANALYST 10/27/2019 1:43 AM INNOVATION ANALYST Kapil Gonsalves MD LAB - BLOOD BANK ORD ERABLES Performing Organization Address [facility]/ZIP Co de Phone Number [facility] [address] [place] [address] * TYPE + SCREEN PANEL (10/27/2019 1:20 AM INNOVATION ANALYST) Only the most recent of2 resultswithin the time period is included. Pathologist [facility] Antibody Screen NEG 0 2:23 AM [facility] ABO Rh O POS 10/27/2019 2:23 AM [facility] Blood Bank BLOOD SPECIMEN / Unknown Venipuncture / Unknown 10/27/2019 1:20 AM INNOVATION ANALYST 10/27/2019 1:26 AM INNOVATION ANALYST Rio Bhakta MD LAB - BLOOD BANK ORD ERABLES Performing Organization Address [facility] Co de Phone Number [facility] [address] [place] [address] * (ABNORMAL) COMPREHENSIVE METABOLIC PANEL (10/27/2019 1:19 AM INNOVATION ANALYST) Only the most recent of2 resultswithin the time period is included. Pathologist [facility] BUN 14 7 - 26 mg/dL 10/27/2019 1:42 AM [facility] Creatinine 0.8 0.6 - 1.2 mg/dL 10/27/2019 1:42 AM [facility] Sodium 141 136 - 145 mmol/L 10/27/2019 1:42 AM [facility] Potassium 2.7(LL) 3.5 - 4.5 mmol/L 10/27/2019 1:42 AM [facility] Chloride 108(H) 98 - 107 mmol/L 10/27/2019 1:42 AM [facility] CO2 19(L) 22 - 29 mmol/L 10/27/2019 1:42 AM [facility] Glucose 173(H) 70 - 115 mg/dL 10/27/2019 1:42 AM [facility] Calcium 8.4 8.4 - 10.2 mg/dL 10/27/2019 1:42 AM [facility] Protein Total 6.1 6.0 - 8.3 g/dL 10/27/2019 1:42 AM [facility] Albumin 3.7 3.4 - 5.0 g/dL 10/27/2019 1:42 AM [facility] Bilirubin Total 0.5 0.2 - 1.2 mg/dL 10/27/2019 1:42 AM [facility] Alkaline Phosphatase 44 40 - 150 Units/L 10/27/2019 1:42 AM [facility] ALT 18 0 - 55 Units/L 10/27/2019 1:42 AM [facility] AST 33 5 - 34 Units/L 10/27/2019 1:42 AM [facility] Anion Gap 17 8 - 18 10/27/2019 1:42 AM [facility] BUN/Creatinine Ratio 18 7 - 23 10/27/2019 1:42 AM [facility] Osmolality Calculated 297 270 - 300 mOsm/kg 10/27/2019 1:42 AM [facility] Albumin/Globulin Ratio 1.5 1.1 - 2.3 10/27/2019 1:42 AM [facility] eGFR >60 >60 mL/min/1.7 3 m2 10/27/2019 1:42 AM [facility] Blood BLOOD SPECIMEN / Unknown Venipuncture / Unknown 10/27/2019 1:19 AM INNOVATION ANALYST 10/27/2019 1:22 AM [facility] Rio Bhakta MD LAB - CHEMISTRY ANGELA JONES [facility] [place] Organization Address City/State/[facility] Co de Phone Number [address] [phone] * HCG BETA BLOOD QUANTITATIVE (10/27/2019 1:19 AM [facility]) Beta-hCG Total Quantitative <2 <5 mIU/mL 10/27/2019 1:45 AM [facility] Comment: This assay is cleared for [...] Unknown Venipuncture / Unknown 10/27/2019 1:19 AM INNOVATION ANALYST 10/27/2019 1:22 AM INNOVATION ANALYST Rio Bhakta MD LAB - CHEMISTRY ANGELA JONES Performing Organization Address [facility] Co de Phone Number [address] [phone] * ALCOHOL ETHYL BLOOD (10/27/2019 1:19 AM INNOVATION ANALYST) Pathologist [facility] Interpretation Ethanol None Detected None Detected mg/dL 10/27/2019 1:39 AM INNOVATION ANALYST [facility] Comment:Ethanol levels less than 10 mg/dL are resulted as None detected . Blood BLOOD SPECIMEN / Unknown Venipuncture / Unknown 10/27/2019 1:19 AM INNOVATION ANALYST 10/27/2019 1:22 AM INNOVATION ANALYST Rio Bhakta MD LAB - CHEMISTRY ANGELA JONES Performing Organization Address [facility] de Phone Number [address] [phone] * XR PELVIS 1 OR 2VW (10/27/2019 1:17 AM INNOVATION ANALYST) Anatomical Region Laterality Modality Pelvis Radiographic Radha ging 10/27/2019 8:11 AM INNOVATION ANALYST Impressions 10/27/2019 12:49 PM INNOVATION ANALYST IMPRESSION: No acute fracture or dislocation identified. Dictated by Lakisha Power MD (residential field manager). I, Dr. ALMA ROSA CORDON have personally reviewed and interpreted this examination/study. This report was electronically signed by ALMA ROSA CORDON ??on 10/27/2019 12:49 PM . Narrative 10/27/2019 12:49 PM INNOVATION ANALYST EXAMINATION: XR PELVIS 1 OR 2VW HISTORY: [...] identified. Dictated by Lakisha Power MD (residential field manager). I, Dr. ALMA ROSA CORDON have personally reviewed and interpreted this examination/study. This report was electronically signed by ALMA ROSA CORDON on 10/27/2019 12:49 PM . Rio Bhakta MD DIAGNOSTIC IMAGING O RDERABLES * CARDIAC RHYTHM STRIP ORDER (09/21/2019 3:43 PM INNOVATION ANALYST) Narrative 09/21/2019 3:43 PM INNOVATION ANALYST Ordered by an unspecified provider. Scanned Document CARDIAC SERVICES ORD ERABLES * GROSS + MICRO EXAM (STL) (09/19/2019 8:49 AM INNOVATION ANALYST) Case Report Surgical Pathology Report ? Case: [id number] ? Authorizing Provider: ??Albert Hdudleston MD ?Collected: ? 09/19/2019 08:49 AM ? [...] F) - Appendix ? 09/21/2019 2:14 PM INNOVATION ANALYST [facility] Final Diagnosis A. Left ovarian [...] appendiceal wall. 09/21/2019 2:14 PM [facility] Clinical History 19-year-old female who underwent diagnostic laparoscopy with excision of endometriosis with CO2 laser. 09/21/2019 2:14 PM [facility] Gross Description Containers A-F are labeled [...] F1. SW/ns 09/21/2019 2:14 PM [facility] Microscopic Description Microscopic findings confirm the final diagnosis. Deeper sections were obtained for specimens A, B, C and D. 09/21/2019 2:14 PM [facility] Disclaimer All histochemical and/or immunohistochemical results are interpreted with controls that demonstrate appropriate staining reactions before reporting results. Note on use of immunocytochemistry reagents: This test was developed and its performance characteristic determined by [facility], Department of Laboratory Medicine. It has not been cleared or approved by the U.S. Food and Drug Administration (FDA). The FDA has determined that such clearance or approval is not necessary. The test is used for clinical purpose. It should not be regarded as investigational or for research. This laboratory is certified to perform high complexity testing. 09/21/2019 2:14 PM [facility] Embedded Images 09/21/2019 2:14 PM [facility] Pathology/Cytology MISCELLANEOUS SAMPLES / Unknown 09/19/2019 8:49 AM INNOVATION ANALYST 09/19/2019 10:46 AM INNOVATION ANALYST Comment:Pre-op diagnosis: Diagnosis unknown [R69] Miscellaneous samples (specimen) TISSUE SPECIMEN / Unknown 09/19/2019 8:50 AM INNOVATION ANALYST 09/19/2019 10:46 AM INNOVATION ANALYST Comment:Pre-op diagnosis: Diagnosis unknown [R69] Miscellaneous samples (specimen) ENTIRE LIGAMENT / Unknown 09/19/2019 8:56 AM INNOVATION ANALYST 09/19/2019 10:46 AM INNOVATION ANALYST Comment:Pre-op diagnosis: Diagnosis unknown [R69] Miscellaneous samples (specimen) ENTIRE LIGAMENT / Unknown 09/19/2019 8:57 AM INNOVATION ANALYST 09/19/2019 10:46 AM INNOVATION ANALYST Comment:Pre-op diagnosis: Diagnosis unknown [R69] Miscellaneous samples (specimen) CYST TISSUE / Unknown 09/19/2019 8:59 AM INNOVATION ANALYST 09/19/2019 10:46 AM INNOVATION ANALYST Comment:Pre-op diagnosis: Diagnosis unknown [R69] Miscellaneous samples (specimen) ENTIRE APPENDIX / Unknown 09/19/2019 9:09 AM INNOVATION ANALYST 09/19/2019 10:46 AM INNOVATION ANALYST Comment:Pre-op diagnosis: Diagnosis unknown [R69] Albert Huddleston MD LAB - PATHOLOGY/DEBORAH STEVEN ORDERABLES [facility] [address] [place] [address] * ETT LINE PERFORMABLE (09/19/2019 8:15 AM INNOVATION ANALYST) Narrative Francisco Alejandra APRN-CRNA - 09/19/2019 8:15 AM INNOVATION ANALYST Francisco Alejandra APRN-CRNA ? 09/19/2019 ??8:15 AM Endotracheal Tube Placement: ? Patient Location: OR. Intubation Event Date/Time: ??09/19/2019 8:09 AM Procedure: intubation ([id number]). Procedure Section: ?? Sedation: under general anesthesia. [...] URINE QUAL POCT NOTIFICATION (09/19/2019 8:00 AM INNOVATION ANALYST) Comment Notification Label Only - See Separate Report 09/19/2019 8:00 AM INNOVATION ANALYST [facility] Urine URINE / Unknown 0 6:40 AM INNOVATION ANALYST Sergio Quezada MD LAB - URINALYSIS ORD ERABLES Performing Organization Address City/[facility]/ZIP Co de Phone Number [facility] [address] [place] [address] * BLOOD TYPE VERIFICATION (09/19/2019 7:01 AM INNOVATION ANALYST) ABO O 09/19/2019 7:23 AM INNOVATION ANALYST [facility] Rh Type Positive 09/19/2019 7:23 AM INNOVATION ANALYST [facility] Blood Bank BLOOD SPECIMEN / Unknown Venipuncture / Unknown 09/19/2019 7:01 AM INNOVATION ANALYST 09/19/2019 7:05 AM INNOVATION ANALYST Sergio Quezada MD LAB - BLOOD BANK ORD ERABLES Performing Organization Address [facility] Co de Phone Number [facility] [address] [place] [id number] [place] [address] * HCG URINE QUALITATIVE - POCT (IP) INTERFACED (09/19/2019 6:50 AM INNOVATION ANALYST) HCG Qual Urine Negative Negative 09/19/2019 6:52 AM INNOVATION ANALYST [facility] Urine URINE / Unknown 09/19/2019 6 :50 AM INNOVATION ANALYST 09/19/2019 6:52 AM INNOVATION ANALYST Albert Huddleston MD LAB - POINT OF CAR E ORDERABLES Performing Organization Address [facility] Co de Phone Number [facility] [address] [place] [address] * IMAGING RADIOLOGY XRAY RESULTS ORDER (05/30/2019 [...] [facility] Comment: ??CULTURE, URINE, ROUTINE ?MICRO NUMBER: ?[id number] ??TEST STATUS: ? FINAL ??SPECIMEN SOURCE: ?? [...] loracarbef. REPORT COMMENT: FASTING:UNKNOWN Test Performed at: [facility] ??[id number] MICHAEL MENDEZ MD Urine URINE SPECIMEN OBTAINED BY CLEAN CATCH PROCEDURE / Unknown 04/06/2019 10:21 AM CDT 04/06/2019 11:34 PM CDT Albert Huddleston MD LAB - MICROBIOLOGY ORDERABLES Performing Organization Address [facility] de Phone Number [facility] [address] [place] [address] * (ABNORMAL) CHLAMYDIA + GC + TRICH DNA AMPL (04/06/2019 10:20 AM CDT) Pathologist [facility] Chlamydia trachomatis RNA DETECTED(A) NOT DETECTED [facility] Comment: A positive CT or NG Nucleic Acid Amplification Test (NAAT) result should be interpreted in conjunction with other laboratory and clinical data available to the clinician. If clinically indicated, further testing can be performed on the same sample using an alternate molecular target. To order alternate target test use 42640 (C. trachomatis) or 13481 (N. gonorrhoeae). GC RNA NOT DETECTED NOT DETECTED [facility] Trichomonas vaginalis RNA Qualitative NOT DETECTED NOT DETECTED [facility] Comment: This test was performed using the APTIMA(R) Trichomonas vaginalis assay (GenPieceableProbe(R)). For more information on this test, go to: http://education.TuneIn Twitter [email or web address]/faq/[email or web address] Test Performed at: [facility] ??[phone] KARMEN RODRIGUEZ DO,MPH Please Note [facility] Comment: This test was performed using the APTIMA COMBO2 Assay ([employer] The analytical performance characteristics of this assay, when used to test [employer] specimens have been determined by [facility]. ?? Microbiology ENTIRE ENDOCERVIX / Unknown 04/06/2019 10:20 AM CDT 04/06/2019 11:34 PM CDT Albert Huddleston MD LAB - MICROBIOLOGY ORDERABLES Performing Organization Address [facility] Co de Phone Number [facility] [address] [place] [address] * LAB RESULTS ORDER (02/02/2016) Only the most recent of3 resultswithin the time period is included. Moody Cotter MD LAB - THERAPEUTIC DR ALLEN MONITORING ORDERABLES * POLYSOMNOGRAM W/MULTIPLE SLEEP LATENCY TEST (09/12/2015) Pathologist [facility] Linked Results See Linked Results SLEEP CENTER 09/12/2015 [place] Kevyn Cotter MD SLEEP CENTER ORDERAB [facility] * CARDIAC EKG ORDER (07/12/2015 5:06 PM INNOVATION ANALYST) Narrative 07/12/2015 5:06 PM INNOVATION ANALYST Ordered by an unspecified provider. Scanned Document CARDIAC SERVICES ORD ERABLES Care Teams Report Developer Relationship Specialty Start Date End Date Laura Reid MD PCP - General Pediatrics 10/28/19 Laura Reid MD Pediatrics 10/28/19
--- OUTSIDE RECORDS SUMMARY | 2024-09-15 12:06 | XMS_ITS | Referral Summary ---
Author Organization [facility] Virtual Care Address [facility] [place] [address] Phone Care Team Providers Care Small Business Banking Officer Name Role Phone Nubia Brown Primary Care Provider [phone] Allergies Active Allergy Reactions Criticality Noted Date [...] on file Legal Sex Female 1:59 AM LIFE SKILLS COORDINATOR Gender Identity Not on file Sexual Orientation Not on file Last Filed Vital Signs Vital Sign Reading Time Taken Comments Blood Pressure 135/89 10/27/2022 9:01 AM LIFE SKILLS COORDINATOR Pulse 89 10/27/2022 9:01 AM LIFE SKILLS COORDINATOR Temperature 36.6 ??C (97.9 ??F) 10/27/2022 9:01 AM CS T Respiratory Rate 16 10/12/2022 10:36 PM LIFE SKILLS COORDINATOR Oxygen Saturation 96% 10/27/2022 9:01 AM LIFE SKILLS COORDINATOR Inhaled Oxygen Concentration - - Weight 83.5 kg (184 lb) 10/27/2022 9:01 AM LIFE SKILLS COORDINATOR Height 157.5 cm (5' 2 ) 10/27/2022 9:01 AM LIFE SKILLS COORDINATOR Body Mass Index 33.65 10/27/2022 9:01 AM LIFE SKILLS COORDINATOR Plan of Treatment Not on file Insurance [facility] HMO [facility] [place] [address] [facility] Care Teams Small Business Banking Officer Relationship Specialty Start Date End Date Nubia Brown PA [address] [address] PCP - General 10/04/20
--- OUTSIDE RECORDS SUMMARY | 2024-09-15 12:06 | XMS_ITS | Clinical Summary ---
Author Organization [facility] Address [address] [place] [address] Phone Care Team Providers Care College Specialist Name Role Phone Laura Reid MD Primary Care Provider Hina maradiaga Medications hydrOXYzine pamoate (VISTARIL) 50 mg capsule Take [...] Department Care Team Description 07/28/2024 9:58 AM ELECTRIC TRACK SWITCH MAINTAINER - 07/28/2024 11:59 PM ELECTRIC TRACK SWITCH MAINTAINER Hospital Encounter [facility] Maternal and [facility] [address] [place] [address] Chata Wiley MD Discharge Disposition: Home or Self Care from Last 3 Months Social History Tobacco Use Types Packs/Day Years Used Date Smoking Tobacco: Never Assessed Comments Unknown Sex and Gender Information Value Date Recorded Sex Assigned at Not on file Legal Sex Female 1:07 PM CDT Gender Identity Not on file Sexual Orientation Not on file Last Filed Vital Signs Vital Sign Reading Time Taken Comments Blood Pressure 102/81 07/02/2017 11:04 AM ELECTRIC TRACK SWITCH MAINTAINER Pulse - - Temperature - - Respiratory Rate - - Oxygen Saturation - - Inhaled Oxygen Concentration - - Weight 76.2 kg (168 lb) 07/02/2017 11:04 AM ELECTRIC TRACK SWITCH MAINTAINER Height 157.5 cm (5' 2 ) 07/02/2017 11:04 AM ELECTRIC TRACK SWITCH MAINTAINER Body Mass Index 30.73 07/02/2017 11:04 AM ELECTRIC TRACK SWITCH MAINTAINER Plan of Treatment Health Maintenance Due Date [...] UP PER FETUS Routine 07/28/2024 10:30 AM ELECTRIC TRACK SWITCH MAINTAINER Encounter for ultrasound to assess anatomy and growth in twin , antepartum from Last 3 Months Results * US OB FOLLOW UP PER FETUS (07/28/2024 10:30 AM ELECTRIC TRACK SWITCH MAINTAINER) Anatomical Region Laterality Modality Pelvis Ultrasound 07/28/2024 10:1 2 AM ELECTRIC TRACK SWITCH MAINTAINER Narrative 07/28/2024 11:07 AM ELECTRIC TRACK SWITCH MAINTAINER STL FOLLOW UP ----- Pat. Name: MARGAUX AREVALO Study Date: 07/28/2024 10:12am Pat. NO: [id number] Referring ??MD: CHATA WILEY MD Site: [facility] Transitional: Lolis Bear RDMS : 2000 Age: 24 [...] ?Z36.2: Encounter for other screening follow-up Procedures ?90883: Ultrasound, uterus, real time with image documentation, [...] 4 lb 8 ?oz EFW by ?Hadlock ([id number]) Extremities / Bony Struc Biometry: FL / [...] and date of were verified by the spider assembler prior to the exam IMPRESSION ----- 1. [...] Pat. Name:Kellee AREVALO Date:07/28/2024 10:12am Pat. NO: [id number] MD:CHATA WILEY MD [facility]Lolis Bear RDMS :2000Age:24 ----- INDICATION ----- [...] fetus Z36.2: Encounter for other screeningfollow-up Procedures 85200: Ultrasound, uterus, real time withimage documentation, follow up, transabdominal approach per fetus HISTORY ----- OB History 4 Miscarriages 3 A3 MATERNAL ASSESSMENT ----- Physical Exam Weight 79 kg. BMI 32.01 kg/m?? METHOD ----- Transabdominal ultrasound examination ----- Us . Number of fetuses: 1 DATING ----- GA by prior [id number] w + 1 d ELIZABETH by prior [...] 4 lb 8 oz EFW by Hadlock ([id number]) Extremities / Bony Struc Biometry: FL / [...] and date of were verified by the spider assembler prior tothe exam IMPRESSION ----- 1. Single [...] participate in the care of this patient. us Chata Wiley MD ORDERABLES Final Res ult from Last [address] [place] [address] [place] Care Teams College Specialist Relationship Specialty Start Date End Date Laura Reid MD PCP - General Pediatrics 07/02/17
--- OUTSIDE RECORDS SUMMARY | 2024-09-15 12:06 | XMS_ITS | Clinical Summary ---
Author Organization [facility] Address [address] [place] [address] Phone Care Team Providers Care Mortgage Loan Computation Clerk Name Role Phone Provider, None Primary Care [...] = 0.6 oz pur e alcohol) Social [employer] Utilities Answer Date Recorded In the past 12 months has e [employer], gas, oil, or water [employer] threatened to shut off services in your home? Yes 02/16/2024 Social Connection and Isolation Panel [NHANES] A nswer Date Recorded In a typical week, how many times do you talk on the phone with family, friends, or neighbors? Once a week 02/16/2024 How often do you get together with friends or re latives? Once a week 02/16/2024 How often do you attend roman catholic or denominational serv ices? Never 02/16/2024 Do you belong to any clubs o r organizations such as roman catholic groups, unions, fraternal or athletic groups, or [...] Total Score - Questions 1-9 23 12/22 [facility] [place] of Occupat ional Health - Occupational Stress [...] any time in the past 12 m [facility], were you homeless or living in a long-term (including now)? 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 Not on file [...] Recommended Domains Addressed Status Status Reason/Outcome Date/Time [facility] Government Benefits, Belt Builder Helper Housing, Public Housing, Residential Housing Financial Resource Strain, Housing Stability Recommended 08/29/2024 1:01 PM WHALE TRAINER Zach Foy Food Pant[employer] Emergency Food, Food Pantry Food Insecurity Recommended 08/29/2024 1:01 PM WHALE TRAINER Darek Financial Resource Needs Financial Resource Strain, Utilities Recommended 08/29/2024 1:01 PM WHALE TRAINER [facility] Financial Resource Needs Financial Resource Strain, Utilities Recommended 08/29/2024 1:01 PM WHALE TRAINER [facility] Help Find Housing, [facility] Housing, Residential Housing Housing Stability Recommended 08/29/2024 1:01 PM WHALE TRAINER [facility] Financial Resource Needs, Housing Insecurity Needs Financial Resource Strain, Utilities Recommended 08/29/2024 1:01 PM WHALE TRAINER [facility] Financial Resource Needs Financial Resource Strain, Utilities Recommended 08/29/2024 1:01 PM WHALE TRAINER from Last 12 Months Insurance [place]ICAID [place] [facility] Care Teams Mortgage Loan Computation Clerk Relationship Specialty Start Date End Date Provider, None [place] PCP - General 03/15/23
== END 2024-09-12 13:14 | disposition home or self-care (01) ==
LOC: ANHOBOP 09:03 → ANHOBPP 09:05
PROVIDERS: PCP Family Medicine; Visit Provider Obstetrics & Gynecology Gynecology
DX: O13.5 Gestational [pregnancy-induced] hypertension without significant proteinuria, complicating the puerperium (principal)
CPT/HCPCS: 36415; 80053; 84550; 85025; 99199; A9270

== ENCOUNTER 2024-09-14 11:10 | Outpatient (CLI) | payer OTHER, SELFPAY ==
[2024-09-14 12:01] VITALS: BP 131/90; PULSE 95
[2024-09-14 12:37] VITALS: BP 138/78; PULSE 78; RESP 14
--- OUTSIDE RECORDS SUMMARY | 2024-09-16 00:07 | XMS_ITS | Clinical Summary ---
Author Organization [facility] Address [address] [place] [address] Care Team Providers Care Motorcycle Sales Associate Name Role Phone Laura Reid MD Primary Care Provider [phone] Laura Reid MD Unavailable [phone] Source Comments [facility],non-owned Affiliates and Associated Physician Practices is amultiple site organization consisting of ambulatory clinics and hospital sitesin [place], [place] and [place]. This disclosure is being madepursuant to the Care Everywhere program and may not contain all information available regarding this patient. Last updated 18.[facility] Allergies Active Allergy Reactions Criticality [...] Oxygen Concentration 30% 10/29/2019 4 :[address] OILER Weight 59.4 kg (131 lb) 11/24/2019 11:39 [...] this topic Medical Devices Implanted Type Area Clock Mechanic Device Identifier Shelf Expiration Date Model / Serial / Lot Patch Srg 4x2in Slnt Evarrest Fbrn - [id number] Implanted:Qty: 1 on 10/27/2019 by Sam Landry MD at [facility] N/A: Abdomen [employer] 11/18/2020 [id number] / Advance Directives * Full Code (Latest Code Status on File) Date Activated Date Inactivated Comments 10/27/2019 6:13 AM 11/09/2019 1:32 PM * Full Code Date Activated Date Inactivated Comments 10/27/2019 6:13 AM 10/27/2019 6:13 AM Care Teams Motorcycle Sales Associate Relationship Specialty Start Date End Date Laura Reid MD PCP - General Pediatrics 10/28/19 Laura Reid MD Pediatrics 10/28/19
--- OUTSIDE RECORDS SUMMARY | 2024-09-16 00:07 | XMS_ITS | Encounter Summary ---
Author Organization [facility] Address [address] [place] [address] Care Team Providers Care Tool Crib Manager Name Role Phone Laura Reid MD Primary Care Provider [phone] Laura Reid MD Primary Care Provider [phone] Laura Reid MD Unavailable [phone] Reason for Visit * Reason Onset Date Comments POST-OP PROBLEM 09/23/2019 Encounter Details Date Type Department Care Team (Late Contact Info) Description 09/23/2019 Telephone [facility] [address] [place] [address] Albert Huddleston MD [address] [place] [address] POST-OP PROBLEM Social History Tobacco [...] after 6 hours of drinking Mag Citrate. KNITTER * Telephone Encounter - Gamal Cotter - 09/23/2019 3:41 PM CST Pt called in stating she has not had a bowel movement since she had surgery or Thursday. She also states her bloating is getting worse and it's uncomfortable. Callback#[phone] KNITTER documented in this encounter Plan of Treatment Not on file documented as of this encounter Visit Diagnoses Not on filedocumented in this encounter Care Teams Tool Crib Manager Relationship Specialty Start Date End Date Laura Reid MD PCP - General Pediatrics 07/06/15 10/27/19 Laura Reid MD PCP - General Pediatrics 10/28/19 Laura Reid MD Pediatrics 10/28/19 documented as of this encounter
--- OUTSIDE RECORDS SUMMARY | 2024-09-16 00:07 | XMS_ITS | Referral Summary ---
Author Organization [facility] Virtual Care Address [facility] [address] [place] [address] Phone Care Team Providers Care Energy Rater Name Role Phone Nubia Brown Primary Care Provider [phone] Allergies Active Allergy Reactions Criticality Noted Date [...] on file Legal Sex Female 1:59 AM SOLUTIONS DEVELOPMENT ANALYST Gender Identity Not on file Sexual Orientation Not on file Last Filed Vital Signs Vital Sign Reading Time Taken Comments Blood Pressure 135/89 10/27/2022 9:01 AM SOLUTIONS DEVELOPMENT ANALYST Pulse 89 10/27/2022 9:01 AM SOLUTIONS DEVELOPMENT ANALYST Temperature 36.6 ??C (97.9 ??F) 10/27/2022 9:01 AM CS T Respiratory Rate 16 10/12/2022 10:36 PM SOLUTIONS DEVELOPMENT ANALYST Oxygen Saturation 96% 10/27/2022 9:01 AM SOLUTIONS DEVELOPMENT ANALYST Inhaled Oxygen Concentration - - Weight 83.5 kg (184 lb) 10/27/2022 9:01 AM SOLUTIONS DEVELOPMENT ANALYST Height 157.5 cm (5' 2 ) 10/27/2022 9:01 AM SOLUTIONS DEVELOPMENT ANALYST Body Mass Index 33.65 10/27/2022 9:01 AM SOLUTIONS DEVELOPMENT ANALYST Plan of Treatment Not on file Insurance [facility] [place] HMO [facility] [place] [address] [facility] Care Teams Energy Rater Relationship Specialty Start Date End Date Nubia Brown PA [address] [address] PCP - General 10/04/20
--- OUTSIDE RECORDS SUMMARY | 2024-09-16 00:07 | XMS_ITS | Patient Health Summary ---
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 MORTUARY TECHNICIAN 10/27/2019 5:50 AM MORTUARY TECHNICIAN Rio Bhakta MD LAB - COAGULATION OR DERABLES Performing Organization Address [facility] [place] [address], [facility] [phone] * CENTRAL LINE PERFORMABLE (10/27/2019 2:00 AM MORTUARY TECHNICIAN) Narrative Khadar Alex, DO - 10/27/2019 2:00 AM MORTUARY TECHNICIAN Khadar Alex, DO ? 10/27/2019 ??2:01 AM Central Line Placement Procedure Note/LDA ?? Patient Location: OR. Procedure: central line > 5yr ([id number]). Procedure Section: ?? Indications: IV access. Patient [...] * ARTERIAL LINE PERFORMABLE (10/27/2019 1:59 AM MORTUARY TECHNICIAN) Narrative Khadar Alex DO - 10/27/2019 1:59 AM MORTUARY TECHNICIAN Khadar Alex DO ? 10/27/2019 ??2:00 AM Arterial Line Placement Procedure Note Patient Location: OR. Procedure: Arterial Line ([id number]). Procedure Section ?? Indications: continuous blood pressure [...] * ETT LINE PERFORMABLE (10/27/2019 1:58 AM MORTUARY TECHNICIAN) Narrative Khadar Alex DO - 10/27/2019 1:58 AM MORTUARY TECHNICIAN Khadar Alex DO ? 10/27/2019 ??1:59 AM Endotracheal Tube Placement: ? Patient Location: OR. Intubation Event Date/Time: ??10/27/2019 1:17 AM Procedure: intubation ([id number]). Procedure Section: ?? Sedation: under general anesthesia. [...] RBC UNIT(S), 2 Units (10/27/2019 1:43 AM MORTUARY TECHNICIAN) Only the most recent of2 resultswithin the time period is included. Unit Description LR Red Cells [facility] Unit ABO O [facility] Unit Rh POS [facility] Product Number RA1 [facility] Unit Donor # [id number] [facility] Unit Status transfused [facility] Product Code [id number] [facility] Blood Type Barcode 5100 [facility] Unit Description LR Red Cells [facility] Unit ABO O [facility] Unit Rh POS [facility] Product Number RA1 [facility] Unit Donor # [id number] [facility] Unit Status transfused [facility] Product Code [id number] [facility] Blood Type Barcode 5100 [facility] Blood Bank BLOOD SPECIMEN / Unknown 10/27/2019 1:43 AM MORTUARY TECHNICIAN 10/27/2019 1:43 AM MORTUARY TECHNICIAN Kapil Gonsalves MD LAB - BLOOD BANK ORD ERABLES [facility] [address] * 4 Units (10/27/2019 1:43 AM MORTUARY TECHNICIAN) Unit Description LR Whole Blood [facility] Unit ABO O [facility] Unit POS [facility] Product Number WBL [facility] Unit Donor # [id number] [facility] Unit Status transfused [facility] Product Code [id number] [facility] Blood Type Barcode 5100 [facility] Unit Description LR Whole Blood [facility] Unit ABO O [facility] Unit POS [facility] Product Number WBL [facility] B[facility] Unit Donor # [id number] [facility] Unit Status transfused [facility] Product Code [id number] [facility] Blood Type Barcode 5100 [facility] Unit Description LR Whole Blood [facility] Unit ABO O [facility] Unit Rh POS [facility] Product Number WBL [facility] Unit Donor # [id number] [facility] Unit Status released [facility] BLOO D [facility]ANK [facility] Product Code [id number] [facility] Blood Type Barcode 5100 [facility] Unit Description LR Whole Blood [facility] Unit ABO O [facility] Unit Rh POS [facility] Product Number WBL [facility] B[facility] Unit Donor # [id number] [facility] Unit Status released [facility] BLOO D [facility] Product Code [id number] [facility] Blood Type Barcode 5100 [facility] Blood Bank BLOOD SPECIMEN / Unknown 10/27/2019 1:43 AM MORTUARY TECHNICIAN 10/27/2019 1:43 AM MORTUARY TECHNICIAN Sam Landry MD LAB - BLOOD BANK OR DERABLES Performing Organization Address City/[facility]/ZIP Co de Phone Number [facility] [address] [place] [address] * PREPARE PLATELET PHERESIS UNIT(S), 1 Units (10/27/2019 1:43 AM MORTUARY TECHNICIAN) Unit Description PL Pheres LR IRR [facility] Unit ABO A [facility] B[facility] Unit Rh NEG [facility] Product Number P6 [facility] Unit Donor # [id number] [facility] Unit Status released [facility] Product Code [id number] [facility] B[facility] OD [facility] Blood Type Barcode 0600 [facility] Blood Bank BLOOD SPECIMEN / Unknown 10/27/2019 1:43 AM MORTUARY TECHNICIAN 10/27/2019 1:43 AM MORTUARY TECHNICIAN Fiorella Jaffe MD LAB - BLOOD BANK ORD ERABLES Performing Organization Address City/[facility]/ZIP Co de Phone Number [facility] [address] [place] [address] * PREPARE FFP UNIT(S), 1 Units (10/27/2019 1:43 AM MORTUARY TECHNICIAN) Only the most recent of2 resultswithin the time period is included. Unit Description Plasma, Thawed [facility] Unit ABO A [facility] Unit Rh NEG [facility] Product Number F00 [facility] Unit Donor # [id number] [facility] Unit Status transfused [facility] Product Code [id number] [facility] Blood Type Barcode 0600 [facility] Blood Bank BLOOD SPECIMEN / Unknown 10/27/2019 1:43 AM MORTUARY TECHNICIAN 10/27/2019 1:43 AM MORTUARY TECHNICIAN Kapil Gonsalves MD LAB - BLOOD BANK ORD ERABLES Performing Organization Address [facility]/ZIP Co de Phone Number [facility] [address] [place] [address] * TYPE + SCREEN PANEL (10/27/2019 1:20 AM MORTUARY TECHNICIAN) Only the most recent of2 resultswithin the time period is included. Pathologist [facility] Antibody Screen NEG 0 2:23 AM [facility] ABO Rh O POS 10/27/2019 2:23 AM [facility] Blood Bank BLOOD SPECIMEN / Unknown Venipuncture / Unknown 10/27/2019 1:20 AM MORTUARY TECHNICIAN 10/27/2019 1:26 AM MORTUARY TECHNICIAN Rio Bhakta MD LAB - BLOOD BANK ORD ERABLES Performing Organization Address [facility] Co de Phone Number [facility] [address] [place] [address] * (ABNORMAL) COMPREHENSIVE METABOLIC PANEL (10/27/2019 1:19 AM MORTUARY TECHNICIAN) Only the most recent of2 resultswithin the time period is included. Pathologist [facility] BUN 14 7 - 26 mg/dL 10/27/2019 1:42 AM [facility] Creatinine 0.8 0.6 - 1.2 mg/dL 10/27/2019 1:42 AM [facility] Sodium 141 136 - 145 mmol/L 10/27/2019 1:42 AM [facility] Potassium 2.7(LL) 3.5 - 4.5 mmol/L 10/27/2019 1:42 AM [facility] Chloride 108(H) 98 - 107 mmol/L 10/27/2019 1:42 AM [facility] CO2 19(L) 22 - 29 mmol/L 10/27/2019 1:42 AM [facility] Glucose 173(H) 70 - 115 mg/dL 10/27/2019 1:42 AM [facility] Calcium 8.4 8.4 - 10.2 mg/dL 10/27/2019 1:42 AM [facility] Protein Total 6.1 6.0 - 8.3 g/dL 10/27/2019 1:42 AM [facility] Albumin 3.7 3.4 - 5.0 g/dL 10/27/2019 1:42 AM [facility] Bilirubin Total 0.5 0.2 - 1.2 mg/dL 10/27/2019 1:42 AM [facility] Alkaline Phosphatase 44 40 - 150 Units/L 10/27/2019 1:42 AM [facility] ALT 18 0 - 55 Units/L 10/27/2019 1:42 AM [facility] AST 33 5 - 34 Units/L 10/27/2019 1:42 AM [facility] Anion Gap 17 8 - 18 10/27/2019 1:42 AM [facility] BUN/Creatinine Ratio 18 7 - 23 10/27/2019 1:42 AM [facility] Osmolality Calculated 297 270 - 300 mOsm/kg 10/27/2019 1:42 AM [facility] Albumin/Globulin Ratio 1.5 1.1 - 2.3 10/27/2019 1:42 AM [facility] eGFR >60 >60 mL/min/1.7 3 m2 10/27/2019 1:42 AM [facility] Blood BLOOD SPECIMEN / Unknown Venipuncture / Unknown 10/27/2019 1:19 AM MORTUARY TECHNICIAN 10/27/2019 1:[address] [facility] Rio Bhakta MD LAB - CHEMISTRY ANGELA JONES [facility] Organization Address City/State/[facility] Co de Phone Number [address] [phone] * HCG BETA BLOOD QUANTITATIVE (10/27/2019 1:[address] [facility]) Beta-hCG Total Quantitative <2 <5 mIU/mL 10/27/2019 1:45 AM [facility] Comment: This assay is cleared for [...] Unknown Venipuncture / Unknown 10/27/2019 1:19 AM MORTUARY TECHNICIAN 10/27/2019 1:22 AM MORTUARY TECHNICIAN Rio Bhakta MD LAB - CHEMISTRY ANGELA JONES Performing Organization Address [facility] Co de Phone Number [address] [phone] * ALCOHOL ETHYL BLOOD (10/27/2019 1:19 AM MORTUARY TECHNICIAN) Pathologist [facility] Interpretation Ethanol None Detected None Detected mg/dL 10/27/2019 1:39 AM MORTUARY TECHNICIAN [facility] Comment:Ethanol levels less than 10 mg/dL are resulted as None detected . Blood BLOOD SPECIMEN / Unknown Venipuncture / Unknown 10/27/2019 1:19 AM MORTUARY TECHNICIAN 10/27/2019 1:22 AM MORTUARY TECHNICIAN Rio Bhakta MD LAB - CHEMISTRY ANGELA JONES Performing Organization Address [facility] de Phone Number [address] [phone] * XR PELVIS 1 OR 2VW (10/27/2019 1:17 AM MORTUARY TECHNICIAN) Anatomical Region Laterality Modality Pelvis Radiographic Radha ging 10/27/2019 8:11 AM MORTUARY TECHNICIAN Impressions 10/27/2019 12:49 PM MORTUARY TECHNICIAN IMPRESSION: No acute fracture or dislocation identified. Dictated by Lakisha Power MD (resident care associate). I, Dr. ALMA ROSA CORDON have personally reviewed and interpreted this examination/study. This report was electronically signed by ALMA ROSA CORDON ??on 10/27/2019 12:49 PM . Narrative 10/27/2019 12:49 PM MORTUARY TECHNICIAN EXAMINATION: XR PELVIS 1 OR 2VW HISTORY: [...] dislocation identified. Dictated by Lakisha Power MD (resident care associate). I, Dr. ALMA ROSA CORDON have personally reviewed and interpreted this examination/study. This report was electronically signed by ALMA ROSA CORDON on 10/27/2019 12:49 PM . Rio Bhakta MD DIAGNOSTIC IMAGING O RDERABLES * CARDIAC RHYTHM STRIP ORDER (09/21/2019 3:43 PM MORTUARY TECHNICIAN) Narrative 09/21/2019 3:43 PM MORTUARY TECHNICIAN Ordered by an unspecified provider. Scanned Document CARDIAC SERVICES ORD ERABLES * GROSS + MICRO EXAM (STL) (09/19/2019 8:49 AM MORTUARY TECHNICIAN) Case Report Surgical Pathology Report ? Case: [id number] ? Authorizing Provider: ??Albert Huddleston MD ?Collected: [...] F) - Appendix ? 09/21/2019 2:14 PM MORTUARY TECHNICIAN [facility] Final Diagnosis A. Left ovarian [...] appendiceal wall. 09/21/2019 2:[address] [facility] Clinical History 19-year-old female who underwent diagnostic laparoscopy with excision of endometriosis with CO2 laser. 09/21/2019 2:[address] [facility] Gross Description Containers A-F are labeled [...] F1. SW/ns 09/21/2019 2:[address] [facility] Microscopic Description Microscopic findings confirm the final diagnosis. Deeper sections were obtained for specimens A, B, C and D. 09/21/2019 2:[address] [facility] Disclaimer All histochemical and/or immunohistochemical results are interpreted with controls that demonstrate appropriate staining reactions before reporting results. Note on use of immunocytochemistry reagents: This test was developed and its performance characteristic determined by [facility], Department of Laboratory Medicine. It has not been cleared or approved by the U.S. Food and Drug Administration (FDA). The FDA has determined that such clearance or approval is not necessary. The test is used for clinical purpose. It should not be regarded as investigational or for research. This laboratory is certified to perform high complexity testing. 09/21/2019 2:[address] [facility] Embedded Images 09/21/2019 2:[address] [facility] Pathology/Cytology MISCELLANEOUS SAMPLES / Unknown 09/19/2019 8:49 AM MORTUARY TECHNICIAN 09/19/2019 10:46 AM MORTUARY TECHNICIAN Comment:Pre-op diagnosis: Diagnosis unknown [R69] Miscellaneous samples (specimen) TISSUE SPECIMEN / Unknown 09/19/2019 8:50 AM MORTUARY TECHNICIAN 09/19/2019 10:46 AM MORTUARY TECHNICIAN Comment:Pre-op diagnosis: Diagnosis unknown [R69] Miscellaneous samples (specimen) ENTIRE LIGAMENT / Unknown 09/19/2019 8:56 AM MORTUARY TECHNICIAN 09/19/2019 10:46 AM MORTUARY TECHNICIAN Comment:Pre-op diagnosis: Diagnosis unknown [R69] Miscellaneous samples (specimen) ENTIRE LIGAMENT / Unknown 09/19/2019 8:57 AM MORTUARY TECHNICIAN 09/19/2019 10:46 AM MORTUARY TECHNICIAN Comment:Pre-op diagnosis: Diagnosis unknown [R69] Miscellaneous samples (specimen) CYST TISSUE / Unknown 09/19/2019 8:59 AM MORTUARY TECHNICIAN 09/19/2019 10:46 AM MORTUARY TECHNICIAN Comment:Pre-op diagnosis: Diagnosis unknown [R69] Miscellaneous samples (specimen) ENTIRE APPENDIX / Unknown 09/19/2019 9:09 AM MORTUARY TECHNICIAN 09/19/2019 10:46 AM MORTUARY TECHNICIAN Comment:Pre-op diagnosis: Diagnosis unknown [R69] Albert Huddleston MD LAB - PATHOLOGY/DEBORAH STEVEN ORDERABLES [facility] [address] [place] [address] * ETT LINE PERFORMABLE (09/19/2019 8:15 AM MORTUARY TECHNICIAN) Narrative Francisco Alejandra APRN-CRNA - 09/19/2019 8:15 AM MORTUARY TECHNICIAN Francisco Alejandra APRN-CRNA ? 09/19/2019 ??8:15 AM Endotracheal Tube Placement: ? Patient Location: OR. Intubation Event Date/Time: ??09/19/2019 8:09 AM Procedure: intubation ([id number]). Procedure Section: ?? Sedation: under general anesthesia. [...] URINE QUAL POCT NOTIFICATION (09/19/2019 8:00 AM MORTUARY TECHNICIAN) Comment Notification Label Only - See Separate Report 09/19/2019 8:00 AM MORTUARY TECHNICIAN [facility] Urine URINE / Unknown 0 6:40 AM MORTUARY TECHNICIAN Sergio Quezada MD LAB - URINALYSIS ORD ERABLES Performing Organization Address City/[facility]/ZIP Co de Phone Number [facility] [address] [place] [address] * BLOOD TYPE VERIFICATION (09/19/2019 7:01 AM MORTUARY TECHNICIAN) ABO O 09/19/2019 7:23 AM MORTUARY TECHNICIAN [facility] Rh Type Positive 09/19/2019 7:23 AM MORTUARY TECHNICIAN [facility] Blood Bank BLOOD SPECIMEN / Unknown Venipuncture / Unknown 09/19/2019 7:01 AM MORTUARY TECHNICIAN 09/19/2019 7:05 AM MORTUARY TECHNICIAN Sergio Quezada MD LAB - BLOOD BANK ORD ERABLES Performing Organization Address [facility] Co de Phone Number [facility] [address] [place] [id number] [place] [address] * HCG URINE QUALITATIVE - POCT (IP) INTERFACED (09/19/2019 6:50 AM MORTUARY TECHNICIAN) HCG Qual Urine Negative Negative 09/19/2019 6:52 AM MORTUARY TECHNICIAN [facility] Urine URINE / Unknown 09/19/2019 6 :50 AM MORTUARY TECHNICIAN 09/19/2019 6:52 AM MORTUARY TECHNICIAN Albert Huddleston MD LAB - POINT OF CAR E ORDERABLES Performing Organization Address [facility] Co de Phone Number [facility] [address] [place] [place] [address] * IMAGING RADIOLOGY XRAY RESULTS ORDER (05/30/2019 [...] [facility] Comment: ??CULTURE, URINE, ROUTINE ?MICRO NUMBER: ?[id number] ??TEST STATUS: ? FINAL ??SPECIMEN SOURCE: ?? [...] loracarbef. REPORT COMMENT: FASTING:UNKNOWN Test Performed at: [facility] ??[id number] MICHAEL MENDEZ MD Urine URINE SPECIMEN OBTAINED BY CLEAN CATCH PROCEDURE / Unknown 04/06/2019 10:21 AM CDT 04/06/2019 11:34 PM CDT Albert Huddleston MD LAB - MICROBIOLOGY ORDERABLES Performing Organization Address [facility] de Phone Number [facility] [address] [place] [address] * (ABNORMAL) CHLAMYDIA + GC + TRICH DNA AMPL (04/06/2019 10:20 AM CDT) Pathologist [facility] Chlamydia trachomatis RNA DETECTED(A) NOT DETECTED [facility] Comment: A positive CT or NG Nucleic Acid Amplification Test (NAAT) result should be interpreted in conjunction with other laboratory and clinical data available to the clinician. If clinically indicated, further testing can be performed on the same sample using an alternate molecular target. To order alternate target test use 34156 (C. trachomatis) or 15759 (N. gonorrhoeae). GC RNA NOT DETECTED NOT DETECTED [facility] Trichomonas vaginalis RNA Qualitative NOT DETECTED NOT DETECTED [facility] Comment: This test was performed using the APTIMA(R) Trichomonas vaginalis assay ([employer]Probe(R)). For more information on this test, go to: http://education.[employer]/faq/Trichomonastma Test Performed at: [facility] ??[phone] KARMEN RODRIGUEZ DO,MPH Please Note [facility] Comment: This test was performed using the APTIMA COMBO2 Assay ([employer] The analytical performance characteristics of this assay, when used to test SurePath specimens have been determined by [employer]. ?? Microbiology ENTIRE ENDOCERVIX / Unknown 04/06/2019 10:20 AM CDT 04/06/2019 11:34 PM CDT Albert Huddleston MD LAB - MICROBIOLOGY ORDERABLES Performing Organization Address [facility] Co de Phone Number [facility] [address] [place] [address] * LAB RESULTS ORDER (02/02/2016) Only the most recent of3 resultswithin the time period is included. Moody Cotter MD LAB - THERAPEUTIC DR ALLEN MONITORING ORDERABLES * POLYSOMNOGRAM W/MULTIPLE SLEEP LATENCY TEST (09/12/2015) Pathologist [facility] Linked Results See Linked Results SLEEP CENTER 09/12/2015 [place] Kevyn Cotter MD SLEEP CENTER ORDERAB LES [facility] * CARDIAC EKG ORDER (07/12/2015 5:06 PM MORTUARY TECHNICIAN) Narrative 07/12/2015 5:06 PM MORTUARY TECHNICIAN Ordered by an unspecified provider. Scanned Document CARDIAC SERVICES ORD ERABLES Care Teams Electrical Line Worker Relationship Specialty Start Date End Date Laura Reid MD PCP - General Pediatrics 10/28/19 Laura Reid MD Pediatrics 10/28/19
--- OUTSIDE RECORDS SUMMARY | 2024-09-16 00:07 | XMS_ITS | Encounter Summary ---
Author Organization [facility] Address [address] [place] [address] Care Team Providers Care Ground Systems Engineer Name Role Phone Laura Reid MD Primary Care Provider [phone] Laura Reid MD Unavailable [phone] Reason for Visit * Reason Onset Date Comments Results 08/22/2020 Encounter Details Date Type Department Care Team (Late st Contact Info) Description 08/22/2020 Telephone [facility] [address] [place], [place] [id number] Albert Huddleston MD [address] [place] [address] Results Social History Tobacco Use [...] back in the spring with call back [phone] OLOGY MANAGER documented in this encounter Plan of Treatment Not on file documented as of this encounter Visit Diagnoses Not on filedocumented in this encounter Care Teams Ground Systems Engineer Relationship Specialty Start Date End Date Laura Reid MD PCP - General Pediatrics 10/28/19 Laura Reid MD Pediatrics 10/28/19 documented as of this encounter
--- OUTSIDE RECORDS SUMMARY | 2024-09-16 00:07 | XMS_ITS | Referral Summary ---
Author Organization [facility] Address [address] [place] [address] Care Team Providers Care Guest Services Name Role Phone Laura Reid MD Primary Care Provider [phone] Laura Reid MD Unavailable [phone] Source Comments [facility],non-owned Affiliates and Associated Physician Practices is amultiple site organization consisting of ambulatory clinics and hospital sitesin [place], [place], [place] and [place]. This disclosure is being madepursuant to the Care Everywhere program and may not contain all information available regarding this patient. Last updated 18.[facility] Allergies Active Allergy Reactions Criticality Noted Date [...] Oxygen Concentration 30% 10/29/2019 4 :00 PM PROFESSIONAL PROGRAMMER ANALYST Weight 59.4 kg (131 lb) 11/24/2019 [...] on file Medical Devices Implanted Type Area Data Center Technician Device Identifier Shelf Expiration Date Model / Serial / Lot Patch Srg 4x2in Slnt Evarrest Fbrn - [id number] Implanted:Qty: 1 on 10/27/2019 by Sam Landry MD at [facility] N/A: Abdomen [employer] 11/18/2020 [id number] / [id number] / Advance Directives * Full Code (Latest Code Status on File) Date Activated Date Inactivated Comments 10/27/2019 6:13 AM 11/09/2019 1:32 PM * Full Code Date Activated Date Inactivated Comments 10/27/2019 6:13 AM 10/27/2019 6:13 AM Care Teams Guest Services Relationship Specialty Start Date End Date Laura Reid MD PCP - General Pediatrics 10/28/19 Laura Reid MD Pediatrics 10/28/19
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
--- OUTSIDE RECORDS SUMMARY | 2024-09-16 00:07 | XMS_ITS | Clinical Summary ---
Author Organization [facility] Address [address] [place] [address] Phone Care Team Providers Care Bus Driver School Name Role Phone Laura Reid MD Primary [...] Department Care Team Description 07/28/2024 9:58 AM FIXTURE DESIGNER - 07/28/2024 11:59 PM FIXTURE DESIGNER Hospital Encounter [facility] Maternal and Health [facility] [address] [place] [address] Chata Wiley MD Discharge Disposition: [...] Comments Blood Pressure 102/81 07/02/2017 11:04 AM FIXTURE DESIGNER Pulse - - Temperature - - Respiratory Rate - - Oxygen Saturation - - Inhaled Oxygen Concentration - - Weight 76.2 kg (168 lb) 07/02/2017 11:04 AM FIXTURE DESIGNER Height 157.5 cm (5' 2 ) 07/02/2017 11:04 AM FIXTURE DESIGNER Body Mass Index 30.73 07/02/2017 11:04 AM FIXTURE DESIGNER Plan of Treatment Health Maintenance Due Date [...] UP PER FETUS Routine 07/28/2024 10:30 AM FIXTURE DESIGNER Encounter for ultrasound to assess anatomy and growth in twin , antepartum from Last 3 Months Results * US OB FOLLOW UP PER FETUS (07/28/2024 10:30 AM FIXTURE DESIGNER) Anatomical Region Laterality Modality Pelvis Ultrasound 07/28/2024 10:1 2 AM FIXTURE DESIGNER Narrative 07/28/2024 11:07 AM FIXTURE DESIGNER STL FOLLOW UP ----- Pat. Name: MARGAUX AREVALO Study Date: 07/28/2024 10:12am Pat. NO: [id number] Referring ??MD: CHATA WILEY MD Site: [place] Word Processing Operator: Lolis Bear RDMS : 2000 Age: [...] ?Z36.2: Encounter for other screening follow-up Procedures ?[id number]: Ultrasound, uterus, real time with image documentation, [...] 4 lb 8 ?oz EFW by ?Hadlock ([id number]) Extremities / Bony Struc Biometry: [place] / [...] and date of were verified by the supervisor scouring pads prior to the exam IMPRESSION ----- 1. [...] Pat. Name:Kellee AREVALO Date:07/28/2024 10:12am Pat. NO: [id number] MD:CHATA WILEY [facility]Lolis Bear RDMS :2000Age:24 ----- INDICATION ----- Screening [...] fetus Z36.2: Encounter for other screeningfollow-up Procedures [id number]: Ultrasound, uterus, real time withimage documentation, follow up, transabdominal approach per fetus HISTORY ----- OB History 4 Miscarriages 3 A3 MATERNAL ASSESSMENT ----- Physical Exam Weight 79 kg. BMI 32.01 kg/m?? METHOD ----- Transabdominal ultrasound examination ----- Us . Number of fetuses: 1 DATING ----- GA by prior [email or web address] w + 1 d ELIZABETH by prior [...] 4 lb 8 oz EFW by Hadlock ([id number]-FL) Extremities / Bony Struc Biometry: [place] / [...] and date of were verified by the supervisor scouring pads prior tothe exam IMPRESSION ----- 1. Single [...] Res ult from Last 3 [place] [address] [place] Care Teams Bus Driver School Relationship Specialty Start Date End Date Laura Reid MD PCP - General Pediatrics 07/02/17
--- OUTSIDE RECORDS SUMMARY | 2024-09-16 00:08 | XMS_ITS | Encounter Summary ---
Author Organization [facility] Address [address] 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 Arrive at: Virtual Visit ROUTEMAN - Recent and Past Visits Recent Visits Date Type Provider Dept 08/13/20 Office Visit Nubia Brown PAC [facility] Showing recent visits within past 460 days with a meds authorizing provider and meeting all other requirements Future Appointments No visits were found meeting these conditions. Showing future appointments within next 90 days with a meds authorizing provider and meeting all other requirements MS MANAGER documented in this encounter Plan of Treatment Not on file documented as of this encounter Visit Diagnoses Diagnosis Insomnia, unspecified type documented in this encounter Additional Health Concerns Infection Onset Date Last Indicated Resolved Time COVID - 19 12/17/2020 12/17/2020 12/19/2020 8:14 AM CDT Assessment Noted Time PHQ-9 Depression Total Score: 22 020 11:00 AM CLAIMS MANAGER documented as of this encounter Care Teams Kiln Remover Relationship Specialty Start Date End Date Nubia Brown [address] [place] [address] PCP - General Physician Patent Solicitor 08/13/20 03/01/23 Provider, None [place] PCP - General 03/15/23 documented as of this encounter
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
--- OUTSIDE RECORDS SUMMARY | 2024-09-16 00:08 | XMS_ITS | Clinical Summary ---
Author Organization [facility] Address [address] [place] [address] Phone Care Team Providers Care Airplane Pilot Supervisor Name Role Phone Provider, None Primary Care [...] = 0.6 oz pur e alcohol) Social L-3 [employer] Utilities Answer Date Recorded In the past 12 months has e [employer], gas, oil, or water [employer] threatened to shut off services in your home? Yes 02/16/2024 Social Connection and Isolation Panel [NHANES] A nswer Date Recorded In a typical week, how many times do you talk on the phone with family, friends, or neighbors? Once a week 02/16/2024 How often do you get together with friends or re latives? Once a week 02/16/2024 How often do you attend sikhism or oriental orthodox serv ices? 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 Not on file [...] Recommended Domains Addressed Status Status Reason/Outcome Date/Time [facility] Government Benefits, Top Polisher Housing, Public Housing, Residential Housing Financial Resource Strain, Housing Stability Recommended 08/29/2024 1:[address] GANG SUPERVISOR [employer] Emergency Food, Food Pantry Food Insecurity Recommended 08/29/2024 1:[address] GANG SUPERVISOR Darek Financial Resource Needs Financial Resource Strain, Utilities Recommended 08/29/2024 1:[address] GANG SUPERVISOR [facility] Financial Resource Needs Financial Resource Strain, Utilities Recommended 08/29/2024 1:[address] GANG SUPERVISOR [facility] Help Find Housing, [facility] Housing, Residential Housing Housing Stability Recommended 08/29/2024 1:[address] GANG SUPERVISOR [facility] Financial Resource Needs, Housing Insecurity Needs Financial Resource Strain, Utilities Recommended 08/29/2024 1:[address] GANG SUPERVISOR [facility] Financial Resource Needs Financial Resource Strain, Utilities Recommended 08/29/2024 1:[address] GANG SUPERVISOR from Last 12 Months Insurance [place]ICAID [place] [facility] Care Teams Airplane Pilot Supervisor Relationship Specialty Start Date End Date Provider, None [place] PCP - General 03/15/23
== END 2024-09-14 12:17 | disposition home or self-care (01) ==
LOC: ANHOBOP 11:45 → ANHLDR 12:15
PROVIDERS: PCP Family Medicine; Visit Provider Obstetrics & Gynecology Gynecology
DX: O13.9 Gestational [pregnancy-induced] hypertension without significant proteinuria, unspecified trimester (principal); Z3A.00 Weeks of gestation of pregnancy not specified
CPT/HCPCS: 99199